=== PATIENT | female | born 1975 | race Caucasian/White ===

== ENCOUNTER 2017-12-03 16:13 | Emergency (ER) | payer MEDICAID, SELFPAY ==
[2017-12-03 16:17] VITALS: BP 94/72; PULSE 80; RESP 14; TEMP 36.2; O2SAT 97
[2017-12-03] MEDS: Ketorolac 30 MG/ML VIAL IM (16:30)
[2017-12-03] MEDS: Diazepam 5 MG TAB PO (16:30)
--- NOTE | 2017-12-03 16:37 | ED.GENADUL_ITS ---
Discharge Plan Discharge Details Chief Complaint: Nk/Back Pain Clinical Impression: Low back pain radiating to left leg Primary Care Provider: Sarah Beltrán ED Provider: Chadwick Wan Disposition Patient Disposition: HOME Condition: Improving Home Meds and New Rx's Prescriptions: New cyclobenzaprine 10 mg tablet 10 mg PO TID Qty: 14 RF: 0 prednisone 20 mg tablet 60 mg PO DAILY 4 Days Qty: 12 RF: 0 No Action meclizine 25 MG tablet 25 mg PO TID PRNQty: 30 RF: 2 cetirizine 10 MG tablet 10 mg PO DAILY Qty: 90 RF: 3 lansoprazole 30 MG capsule,delayed release(DR/EC) 30 mg PO DAILY Qty: 90 RF: 3 fluoxetine [Prozac] 20 MG capsule 20 mg PO DAILY Qty: 90 RF: 3 sumatriptan succinate [Imitrex] 50 MG tablet 50 mg PO prn migraine Qty: 9 RF: 2 epinephrine [EpiPen 2-Darci] 0.3 MG/0.3 ML auto-injector 0.3 mg IM PRN Qty: 1 RF: 2 albuterol sulfate [ProAir HFA] 200 PUFF/INH HFA aerosol inhaler 2 puff Inhalation Q6H PRN PRNRF: 0 Discharge Instructions Instructions: Cyclobenzaprine (By mouth), Acute Low Back Pain (ED) Additional Instructions: follow up with your primary care provider this week if you have fevers, abdominal pain or difficulty urinating return to the emergency department Discharge Data Discharge Physician: Chadwick Wan Medical Decision Making MDM Narrative Medical decision making narrative: 42 yo female with hx of asthma and depression and chronic lower back pain who has had prior back surgeries in the past for disc herniations per the pt years ago, comes in with back pain since Sunday. She localizes the pain tot he left lower lumbar region and denies midline pain. She denies fevers, abd pain, n/v, ivdu, or recent trauma. She has no saddle anesthesia and denies difficulties with urinating. See exam for further details. I suspect the patient is suffering from either muscle spasm, back strain or possible disc herniation or sciatica. There are no historical or PE findings at this time to suggest cauda equina, sea, dissection, or intrabdominal pathology or osteomyelitis at this time so do not feel labs or imaging indicated. Will treat her pain and reassess. Patient's pain has improved, still no neuro deficits, abd pain or saddle anesthesia. Will send home with steroid burst and also muscle relaxer and have her f/u with pcp's office this week and return precautions given Differential Diagnosis strain, sciatica, disc herniation, muscle spasm HPI - General Adult General Mode of arrival: ambulatory . Date/Time Provider Initiated Documentation: 12/03/17 16:16 . Limitations to Documentation: no limitations . Information obtained by: patient . History of Present Illness 42 year old F presents to the emergency department with the chief complaint of left sided lower back pain, described as severe, with intensity rated at 7. Quality is described as stabbing, and is localized to the back. Patient extremity (posterior left leg). Patient started experiencing this day(s) (3) and it has been constant. No relieving factors improve symptom(s), No exacerbating factors reported . Patient notes no other symptoms.. Related Data Home Medications Medication Instructions Recorded Confirmed albuterol sulfate [ProAir HFA] 2 puff INHALATION Q6H PRN PRN 08/03/17 12/03/17 Previous Rx's Medication Instructions Recorded cyclobenzaprine 10 mg PO TID #14 tab 12/03/17 prednisone 60 mg PO DAILY 4 Days #12 tab 12/03/17 Allergies Allergy/AdvReac Type Severity Reaction Status Date / Time venom-honey bee Allergy Severe Unverified 12/03/17 16:24 Sulfa (Sulfonamide Allergy HIVES Unverified 12/03/17 16:24 Antibiotics) General Stated Complaint: Nk/Back Pain MIKE: 3 Review of Systems Review of Systems All systems reviewed & are unremarkable except as noted in HPI and below Constitutional Denies chills, Denies fever(s) and Denies weakness Eyes Patient Denies loss of vision ENT Denies change in voice Cardiovascular Denies chest pain and Denies dyspnea Respiratory Denies dyspnea Gastrointestinal Denies abdominal pain, Denies nausea and Denies vomiting Genitourinary Denies dysuria Musculoskeletal Denies joint swelling Integumentary/Breasts Denies rash Neurologic Denies loss of vision and Denies weakness Psychiatric Denies depression Endocrine Denies cold intolerance and Denies heat intolerance Allergic/Immunologic Reports urticaria PFSH Family History Mother Hyperlipidemia Thyroid disorder Father Essential hypertension Diabetes Personal history of malignant neoplasm Heart disease Hyperlipidemia Sister No problems noted. Brother No problems noted. Grandfather No problems noted. Grandfather No problems noted. Grandmother No problems noted. Grandmother No problems noted. Social History Smoking/Tobacco Use Status: Current every day Surgical History ANAL SURGERY Dilation and curettage Endometrial Ablation (~2009) Ligation of fallopian tube discectomy (~2003) Exam Const General: no acute distress Orientation: alert HENMT Head: normal to inspection Ears: external ears normal General nose exam: external nose normal Mouth: moist mucous membranes Eyes General: appearance normal, both eyes and all related structures Neck Neck: normal visual inspection Resp Effort & Inspection: normal respiratory effort and able to speak in complete sentences Cardio Rate: regular rate Back/Spine/Pelvis Back: no CVA tenderness, No erythema, No warmth, No sacral edema, No ecchymosis and No Webb-Bryan sign present Thoracic/Lumbar Spine: other (patient with pain over left lower lumbar region, no midline pain or stepoffs, no saddle anesthesia, 5/5 strength in lower extremities and intact distal sensation and 2+ dp/pt pulses) Skin General skin exam: no rashes or lesions noted Neuro General: alert, oriented x3 and deep tendon reflexes 2+ bilaterally Speech: speech normal Sensory Exam: no sensory deficits noted Extrem General: normal to inspection Psych Mental Status: mental status grossly normal Course Vital Signs Temperature 36.2 C L 12/03/17 16:17 Pulse 80 12/03/17 16:17 Respiratory Rate 14 12/03/17 16:17 Blood Pressure 94/72 L 12/03/17 16:17 Pulse Oximetry 97 12/03/17 16:17 Temperature 36.2 C L 12/03/17 16:17 Pulse 80 12/03/17 16:17 Respiratory Rate 14 12/03/17 16:17 Blood Pressure 94/72 L 12/03/17 16:17 Pulse Oximetry 97 12/03/17 16:17
[2017-12-03] MEDS: predniSONE 20 MG TAB 60 MG PO (16:41)
[2017-12-03] MEDS: Cyclobenzaprine 10 MG TAB (18:00)
--- NOTE | 2017-12-04 09:10 | PDOC.ERCMPRO ---
Care Management Progress Note 12/04-Dr. Wan requested assistance with a PCP (Leigh Ann) f/u in one week for back pain. Referral faxed to [facility] this .
== END 2017-12-03 18:09 | disposition home or self-care (01) ==
PROVIDERS: Emergency Provider Emergency Medicine; PCP Family Medicine
DX: M54.42 Lumbago with sciatica, left side (principal); G89.29 Other chronic pain; M54.5 Low back pain
CPT/HCPCS: 96372; 99284; J1885; J7512

== ENCOUNTER 2018-01-22 21:22 | Emergency (ER) | payer MEDICAID, SELFPAY ==
[2018-01-22 21:36] VITALS: BP 118/80; PULSE 100; RESP 18; TEMP 36.1; O2SAT 96
--- NOTE | 2018-01-22 22:21 | DI.CT_ITS ---
SYMPTOMS/DIAGNOSIS: ABDOMINAL PAIN, RIGHT LOWER QUADRANT CT OF THE ABDOMEN AND PELVIS: Comparison is made with April,. There is patent motion on the upper portion of the scan. The lung bases are clear. The liver, spleen, pancreas, adrenals and left kidney are unremarkable. There is a cyst at the lower pole of the right kidney. No stones or hydronephrosis are seen. There is motion at the level of the gallbladder. There is no evidence of biliary dilatation. The appendix appears normal. There is a moderate quantity of stool. There is no abnormal bowel distention or inflammatory change. The patient is status post hysterectomy. The bladder is unremarkable. The ovaries are also grossly normal. Degenerative changes are seen at L5-S1. A laminectomy defect is also seen. IMPRESSION: No acute abnormality. Incidental findings as mentioned above.
[2018-01-22] MEDS: MORPHine 10 MG/ML VIAL 4 MG IVP (22:37)
[2018-01-22] MEDS: Ondansetron 4 MG/2 ML VIAL IVP (22:37)
[2018-01-22] MEDS: Normal Saline 1,000 ML 1000 ML IV (22:37)
[2018-01-22 22:43] LABS: Abs Immature Grans 0.02 k/cumm (0.0-0.09); Absolute Basophil Count 0.02 k/cumm (0.0-0.2); Absolute Eosinophil Count 0.18 k/cumm (0.0-0.7); Absolute Lymphocyte Count 1.89 k/cumm (1.2-3.4); Absolute Monocyte Count 0.65 k/cumm (0.11-0.7); Absolute Neutrophil Count 5.75 k/cumm (1.2-6.7); Basophils % 0.2; Eosinophils % 2.1; HCT 43.3 % (36.0-46.0); HGB 14.6 g/dL (12.0-15.5); Immature Grans % 0.2; Lymphocytes % 22.2; Mean Corp. HGB Concentration 33.7 g/dL (32.0-36.0); Mean Corpuscular Hemoglobin 29.7 pg (27.0-33.0); Mean Platelet Volume 12.1 fL (8.0-11.0); Monocytes % 7.6; Neutrophils % 67.7; Platelet Count 239 x1000/uL (130-400); RBC 4.92 m/cumm (4.00-5.20); RBC Distribution Width 13.8 % (11.7-14.6); White Blood Cell Count 8.51 k/cumm (4.4-10.8)
[2018-01-22 22:50] LABS: ALT 20 U/L (12-78); AST 16 U/L (15-37); Albumin 3.5 g/dL (3.4-5.0); Alkaline Phosphatase 106 U/L (46-116); Anion Gap 9.7 mmol/L (3-11); BUN 11 mg/dL (7-18); Bilirubin, Total 0.4 mg/dL (0.2-1.0); CO2 26.3 mmol/L (21.0-32.0); CREATININE 0.92 mg/dL (0.55-1.02); Calcium 8.7 mg/dL (8.5-10.1); Chloride 104 mmol/L (98-107); Glucose 110 mg/dL (70-100); Lipase 318 U/L (73-393); Potassium 3.2 mmol/L (3.5-5.1); Sodium 140 mmol/L (136-145); Total Protein 7.4 g/dL (6.4-8.2)
[2018-01-22 23:43] LABS: Bilirubin Negative (Negative); Blood Negative (Negative); Clarity Clear; Glucose Negative (Negative); Ketones Negative (Negative); Leukocyte Esterase Negative (Negative); Nitrite Negative (Negative); Specific Gravity <= 1.005 (1.005-1.025); Urobilinogen 0.2 EU/dL (Up TO 0.2)
[2018-01-22] MEDS: Omnipaque 350 MG/ML 100 ML BTL IJ (23:43)
[2018-01-22] MEDS: Omnipaque 350 MG/ML 50 ML BTL IJ (23:45)
--- NOTE | 2018-01-22 23:53 | DI.VRAD_ITS ---
EXAM: CT Abdomen and Pelvis With Intravenous Contrast CLINICAL HISTORY: 42 years old, female; Signs and symptoms; Other: Abd pain, rlq pain; Prior surgery; Surgery date: 6+ months; Surgery type: Ovarian ca 2015, back 2003 TECHNIQUE: Axial computed tomography images of the abdomen and pelvis with intravenous contrast. All CT scans at this facility use at least one of these dose optimization techniques: automated exposure control; mA and/or kV adjustment per patient size (includes targeted exams where dose is matched to clinical indication); or iterative reconstruction. Coronal and sagittal reformatted images were created and reviewed. CONTRAST: 125 mL of omnipaque 350 administered intravenously. COMPARISON: CT ABD PELVIS WITH CONTRAST 04/03/2013 7:19 PM FINDINGS: Lung bases: Unremarkable. No mass. No consolidation. ABDOMEN: Liver: Unremarkable. No mass. Gallbladder and bile ducts: Unremarkable. No calcified stones. No ductal dilation. Pancreas: Unremarkable. No mass. No ductal dilation. Spleen: Unremarkable. No splenomegaly. Adrenals: Unremarkable. No mass. Kidneys and ureters: 3 cm right renal cyst. No hydronephrosis. Stomach and bowel: Unremarkable. No obstruction. No mucosal thickening. PELVIS: Appendix: No findings to suggest acute appendicitis. Bladder: Unremarkable. No mass. Reproductive: Status post hysterectomy. ABDOMEN and PELVIS: Intraperitoneal space: Unremarkable. No free air. No significant fluid collection. Bones/joints: Degenerative change of the spine. No acute fracture. No dislocation. Soft tissues: Unremarkable. Vasculature: Unremarkable. No abdominal aortic aneurysm. Lymph nodes: Unremarkable. No enlarged lymph nodes. IMPRESSION: No acute findings. Dictated and Authenticated by: Chadwick Payne MD. Ordering:MARCIA EDWARDS MD
--- NOTE | 2018-01-23 01:12 | W.ED.GENAD ---
Discharge Plan Disposition Patient Disposition: HOME Condition: Stable Discharge Details Chief Complaint: Fever Clinical Impression: Acute streptococcal pharyngitis, Acute viral syndrome Primary Care Provider: Sarah Beltrán ED Provider: James Sanchez Home Meds and New Rx's Prescriptions: New amoxicillin 875 mg tablet 875 mg PO BID Qty: 20 RF: 0 No Action clotrimazole 10 mg gray 10 mg MM 5X/DAY Qty: 70 RF: 0 albuterol sulfate 90 mcg/actuation HFA aerosol inhaler 2 puff IH Q6H PRNRF: 0 sumatriptan succinate 50 mg tablet 50 mg PO PRN RF: 0 meclizine 25 mg tablet 25 mg PO DAILY PRNRF: 0 epinephrine 0.3 mg/0.3 mL auto-injector 0.3 mg IM ONCE Qty: 1 RF: 0 fluoxetine 20 mg capsule 20 mg PO DAILY Qty: 90 RF: 0 lansoprazole 30 mg capsule,delayed release(DR/EC) 30 mg PO DAILY Qty: 90 RF: 0 cetirizine [All Day Allergy (cetirizine)] 10 mg tablet 10 mg PO DAILY Qty: 90 RF: 0 Discharge Instructions Instructions: Strep Throat (ED), Viral Syndrome (ED) Additional Instructions: Feel free to return the emergency department for any new or worsening symptoms otherwise follow-up with your primary care provider as needed. Please take antibiotics and medications as prescribed. Stand Alone Forms: Work Release Referrals: Sarah Beltrán MD [Primary Care Provider] - (As needed for reassessment) Discharge Data Discharge Date/Time-TO BE ENTERED AT DEPARTURE: 01/23/18 01:50 Medical Decision Making Patient presenting the emergency department chief complaint of cold symptoms. Patient states fever and chills, nausea vomiting abdominal pain, sore throat, cough, nasal congestion. Patient states that the pain and discomfort started 2 days ago. Patient has not taken any medication for symptoms. Physical exam reveals a viral type symptoms with clear lung velez, no meningeal signs, subjective nasal congestion during examination is heard. Abdominal exam though does reveal a significantly tender right lower quadrant and some epigastric tenderness. Plan to check labs and CT image abdomen for possible appendicitis given nausea vomiting and abdominal pain with fever. Otherwise I feel patient's symptoms are viral in etiology but will plan on checking influenza. Pending results patient given IV fluids After review of results which are unremarkable and CT imaging which is negative along with negative influenza patient reassessed. Patient states more of a sore throat so plan on checking rapid strep throat. Rapid strep is faintly positive which could explain sore throat nausea vomiting and GI upset but I feel patient's cough nasal congestion and body aches also could be viral in nature. Plan to start patient on amoxicillin twice daily days and have patient follow-up with primary care provider for reassessment as needed. After discussion of diagnosis and plan of care patient has no further needs, questions, or concerns and states clear understanding to return to the emergency department for any worsening symptoms. Lab Data Lab results reviewed: Yes I reviewed the patient's lab results. HPI General Mode of arrival: ambulatory. Date/Time Provider Initiated Documentation: 01/22/18 21:44. Limitations to Documentation: no limitations. Information obtained by: patient. History of Present Illness 42 year old F presents to the emergency department with the chief complaint of cold symptoms, described as severe, Quality is described as aching, Patient started experiencing this day(s) (2) and it has been constant. No relieving factors improve symptom(s), No exacerbating factors reported . Patient did receive the following treatments prior to arrival, none Related Data Home Medications Medication Instructions Recorded Confirmed albuterol sulfate HFA 90 2 puff IH Q6H PRN 12/05/17 01/22/18 mcg/actuation aerosol inhaler cetirizine 10 mg tablet 10 mg PO DAILY #90 tab 12/05/17 01/22/18 epinephrine 0.3 mg/0.3 mL 0.3 mg IM ONCE #1 each 12/05/17 01/22/18 injection, auto-injector fluoxetine 20 mg capsule 20 mg PO DAILY #90 cap 12/05/17 01/22/18 lansoprazole 30 mg capsule,delayed 30 mg PO DAILY #90 cap 12/05/17 01/22/18 release meclizine 25 mg tablet 25 mg PO DAILY PRN 12/05/17 01/22/18 sumatriptan 50 mg tablet 50 mg PO PRN tab 12/05/17 01/22/18 clotrimazole 10 mg gray 10 mg MM 5X/DAY #70 tab 12/17/17 01/22/18 amoxicillin 875 mg PO BID #20 tab 01/23/18 Previous Rx's Medication Instructions Recorded cetirizine 10 mg tablet 10 mg PO DAILY #90 tab 12/05/17 epinephrine 0.3 mg/0.3 mL 0.3 mg IM ONCE #1 each 12/05/17 injection, auto-injector fluoxetine 20 mg capsule 20 mg PO DAILY #90 cap 12/05/17 lansoprazole 30 mg capsule,delayed 30 mg PO DAILY #90 cap 12/05/17 release clotrimazole 10 mg gray 10 mg MM 5X/DAY #70 tab 12/17/17 amoxicillin 875 mg PO BID #20 tab 01/23/18 Allergies Allergy/AdvReac Type Severity Reaction Status Date / Time venom-honey bee Allergy Severe Unverified 01/22/18 21:36 Sulfa (Sulfonamide Allergy HIVES Unverified 01/22/18 21:36 Antibiotics) General Stated Complaint: Fever MIKE: 3 Review of Systems Constitutional Reports body ache(s), Reports chills, Reports fatigue, Reports fever(s), Reports headache(s) and Reports malaise ENT Denies otalgia, Reports headache(s), Reports sinus pain, Reports sinus pressure and Reports sore throat Cardiovascular Denies chest pain Respiratory Reports cough and Reports pain with cough Gastrointestinal Reports abdominal pain, Denies constipation, Reports diarrhea and Reports vomiting Genitourinary Denies dysuria Neurologic Reports headache(s) Endocrine Reports fatigue [facility] Family History Mother Hyperlipidemia Thyroid disorder Father Essential hypertension Diabetes Personal history of malignant neoplasm Heart disease Hyperlipidemia Sister No problems noted. Brother No problems noted. Grandfather No problems noted. Grandfather No problems noted. Grandmother No problems noted. Grandmother No problems noted. Social History Smoking/Tobacco Use Status: Current every day Surgical History ANAL SURGERY Dilation and curettage Endometrial Ablation (~2009) Ligation of fallopian tube discectomy (~2003) Exam Const General: cooperative, comfortable, no acute distress and ill appearing acutely (mild) Nutritional Appearance: average body habitus Orientation: alert and oriented x3 HENMT Head: normal to inspection, normocephalic and atraumatic Ears: hearing grossly normal bilaterally and TM's normal bilaterally General nose exam: external nose normal Face and sinus: normal facial exam and sinuses nontender Mouth: oral mucosae normal, lip normal and tongue normal Throat: uvula midline and abnormal tonsil bilaterally erythema Neck Neck: normal visual inspection, full ROM, no lymphadenopathy, no meningeal signs, trachea midline and supple Resp Effort & Inspection: normal respiratory effort and able to speak in complete sentences Auscultation: clear to auscultation bilaterally Cardio Rate: regular rate Rhythm: regular rhythm Heart Sounds: S1 normal and S2 normal GI Palpation: no hepatosplenomegaly and tender in the epigastrum and in the RUQ Auscultation: normal bowel sounds Back/Spine/Pelvis Back: no CVA tenderness Course Vital Signs Temperature 36.1 C L 01/22/18 21:36 Pulse 100 H 01/22/18 21:36 Respiratory Rate 18 01/22/18 21:36 Blood Pressure 118/80 01/22/18 21:36 Pulse Oximetry 96 01/22/18 21:36 Temperature 36.1 C L 01/22/18 21:36 Temperature Source Temporal Artery Scan 01/22/18 21:36 Pulse 100 H 01/22/18 21:36 Respiratory Rate 18 01/22/18 21:36 Respiratory Effort 01/22/18 21:36 Blood Pressure 118/80 01/22/18 21:36 Blood Pressure Position Sitting 01/22/18 21:36 Pulse Oximetry 96 01/22/18 21:36 Oxygen Delivery Method Room Air 01/22/18 21:36 Oxygen Flow Rate 0 01/22/18 21:36 Lab/Test Results Lab/Test Results: 01/22/18 22:48 Nasopharynx Influenza Types A,B Antigen - Final Laboratory Tests Range/Units 01/22/18 01/22/18 01/22/18 22:00 22:00 23:25 WBC (4.4-10.8) k/cumm 8.51 RBC (4.00-5.20) m/cumm 4.92 Hgb (12.0-15.5) g/dL 14.6 Hct (36.0-46.0) % 43.3 MCV (80-95) fL 88.0 MCH (27.0-33.0) pg 29.7 MCHC (32.0-36.0) g/dL 33.7 RDW (11.7-14.6) % 13.8 Plt Count (130-400) x1000/uL 239 MPV (8.0-11.0) fL 12.1 H Immature Gran % 0.2 Neutrophils % 67.7 Lymphocytes % 22.2 Monocytes % 7.6 Eosinophils % 2.1 Basophils % 0.2 Absolute Neutrophils (1.2-6.7) k/cumm 5.75 Absolute Lymphocytes (1.2-3.4) k/cumm 1.89 Absolute Monocytes (0.11-0.7) k/cumm 0.65 Absolute Eosinophils (0.0-0.7) k/cumm 0.18 Absolute Basophils (0.0-0.2) k/cumm 0.02 Sodium (136-145) mmol/L 140 Potassium (3.5-5.1) mmol/L 3.2 L Chloride (98-107) mmol/L 104 Carbon Dioxide (21.0-32.0) mmol/L 26.3 Anion Gap (3-11) mmol/L 9.7 BUN (7-18) mg/dL 11 Creatinine (0.55-1.02) mg/dL 0.92 Estimated GFR/1.73 m2 (mL/min/1.73m2) >= 60.00 Glucose (70-100) mg/dL 110 H Calcium (8.5-10.1) mg/dL 8.7 Total Bilirubin (0.2-1.0) mg/dL 0.4 AST (15-37) U/L 16 ALT (12-78) U/L 20 Alkaline Phosphatase (46-116) U/L 106 Total Protein (6.4-8.2) g/dL 7.4 Albumin (3.4-5.0) g/dL 3.5 Lipase (73-393) U/L 318 Urine Color (Yellow) Yellow Urine Clarity Clear Urine pH (5-8) 7.0 Ur Specific [place] (1.005-1.025) <= 1.005 Urine Protein (Negative) mg/dL Negative Urine Ketones (Negative) mg/dL Negative Urine Blood (Negative) Negative Urine Nitrite (Negative) Negative Urine Bilirubin (Negative) Negative Urine Urobilinogen (Up TO 0.2) EU/dL 0.2 Ur Leukocyte Esterase (Negative) Negative Urine Glucose (Negative) mg/dL Negative POC Strep Test-CLEO(Rapid) Start: 01/23/18 00:46 Freq: Status: Active Protocol: Document 01/23/18 00:46 (Rec: 01/23/18 00:46 [id number]) Strep test-CLEO(Rapid)-POC POC-Strep test-CLEO (Rapid) Positive POC-Strep test-CLEO (Rapid) Positive
--- NOTE | 2018-01-23 01:19 | ED.GENADUL_ITS ---
Discharge Plan Disposition Patient Disposition: HOME Condition: Stable Discharge Details Chief Complaint: Fever Clinical Impression: Acute streptococcal pharyngitis, Acute viral syndrome Primary Care Provider: Sarah Beltrán ED Provider: James Sanchez Home Meds and New Rx's Prescriptions: New amoxicillin 875 mg tablet 875 mg PO BID Qty: 20 RF: 0 No Action clotrimazole 10 mg gray 10 mg MM 5X/DAY Qty: 70 RF: 0 albuterol sulfate 90 mcg/actuation HFA aerosol inhaler 2 puff IH Q6H PRNRF: 0 sumatriptan succinate 50 mg tablet 50 mg PO PRN RF: 0 meclizine 25 mg tablet 25 mg PO DAILY PRNRF: 0 epinephrine 0.3 mg/0.3 mL auto-injector 0.3 mg IM ONCE Qty: 1 RF: 0 fluoxetine 20 mg capsule 20 mg PO DAILY Qty: 90 RF: 0 lansoprazole 30 mg capsule,delayed release(DR/EC) 30 mg PO DAILY Qty: 90 RF: 0 cetirizine [All Day Allergy (cetirizine)] 10 mg tablet 10 mg PO DAILY Qty: 90 RF: 0 Discharge Instructions Instructions: Strep Throat (ED), Viral Syndrome (ED) Additional Instructions: Feel free to return the emergency department for any new or worsening symptoms otherwise follow-up with your primary care provider as needed. Please take antibiotics and medications as prescribed. Stand Alone Forms: Work Release Referrals: Sarah Beltrán MD [Primary Care Provider] - (As needed for reassessment) Discharge Data Discharge Date/Time-TO BE ENTERED AT DEPARTURE: 01/23/18 01:50 Medical Decision Making Patient presenting the emergency department chief complaint of cold symptoms. Patient states fever and chills, nausea vomiting abdominal pain, sore throat, cough, nasal congestion. Patient states that the pain and discomfort started 2 days ago. Patient has not taken any medication for symptoms. Physical exam reveals a viral type symptoms with clear lung velez, no meningeal signs, subjective nasal congestion during examination is heard. Abdominal exam though does reveal a significantly tender right lower quadrant and some epigastric tenderness. Plan to check labs and CT image abdomen for possible appendicitis given nausea vomiting and abdominal pain with fever. Otherwise I feel patient' s symptoms are viral in etiology but will plan on checking influenza. Pending results patient given IV fluids After review of results which are unremarkable and CT imaging which is negative along with negative influenza patient reassessed. Patient states more of a sore throat so plan on checking rapid strep throat. Rapid strep is faintly positive which could explain sore throat nausea vomiting and GI upset but I feel patient's cough nasal congestion and body aches also could be viral in nature. Plan to start patient on amoxicillin twice daily days and have patient follow-up with primary care provider for reassessment as needed. After discussion of diagnosis and plan of care patient has no further needs, questions , or concerns and states clear understanding to return to the emergency department for any worsening symptoms. Lab Data Lab results reviewed: Yes I reviewed the patient's lab results. HPI General Mode of arrival: ambulatory . Date/Time Provider Initiated Documentation: 01/22/18 21:44 . Limitations to Documentation: no limitations . Information obtained by: patient . History of Present Illness 42 year old F presents to the emergency department with the chief complaint of cold symptoms, described as severe, Quality is described as aching, Patient started experiencing this day(s) (2) and it has been constant. No relieving factors improve symptom(s), No exacerbating factors reported . Patient did receive the following treatments prior to arrival, none Related Data Home Medications Medication Instructions Recorded Confirmed albuterol sulfate HFA 90 2 puff IH Q6H PRN 12/05/17 01/22/18 mcg/actuation aerosol inhaler cetirizine 10 mg tablet 10 mg PO DAILY #90 tab 12/05/17 01/22/18 epinephrine 0.3 mg/0.3 mL 0.3 mg IM ONCE #1 each 12/05/17 01/22/18 injection, auto-injector fluoxetine 20 mg capsule 20 mg PO DAILY #90 cap 12/05/17 01/22/18 lansoprazole 30 mg capsule,delayed 30 mg PO DAILY #90 cap 12/05/17 01/22/18 release meclizine 25 mg tablet 25 mg PO DAILY PRN 12/05/17 01/22/18 sumatriptan 50 mg tablet 50 mg PO PRN tab 12/05/17 01/22/18 clotrimazole 10 mg gray 10 mg MM 5X/DAY #70 tab 12/17/17 01/22/18 amoxicillin 875 mg PO BID #20 tab 01/23/18 Previous Rx's Medication Instructions Recorded cetirizine 10 mg tablet 10 mg PO DAILY #90 tab 12/05/17 epinephrine 0.3 mg/0.3 mL 0.3 mg IM ONCE #1 each 12/05/17 injection, auto-injector fluoxetine 20 mg capsule 20 mg PO DAILY #90 cap 12/05/17 lansoprazole 30 mg capsule,delayed 30 mg PO DAILY #90 cap 12/05/17 release clotrimazole 10 mg gray 10 mg MM 5X/DAY #70 tab 12/17/17 amoxicillin 875 mg PO BID #20 tab 01/23/18 Allergies Allergy/AdvReac Type Severity Reaction Status Date / Time venom-honey bee Allergy Severe Unverified 01/22/18 21:36 Sulfa (Sulfonamide Allergy HIVES Unverified 01/22/18 21:36 Antibiotics) General Stated Complaint: Fever MIKE: 3 Review of Systems Constitutional Reports body ache(s), Reports chills, Reports fatigue, Reports fever(s), Reports headache(s) and Reports malaise ENT Denies otalgia, Reports headache(s), Reports sinus pain, Reports sinus pressure and Reports sore throat Cardiovascular Denies chest pain Respiratory Reports cough and Reports pain with cough Gastrointestinal Reports abdominal pain, Denies constipation, Reports diarrhea and Reports vomiting Genitourinary Denies dysuria Neurologic Reports headache(s) Endocrine Reports fatigue [facility] Family History Mother Hyperlipidemia Thyroid disorder Father Essential hypertension Diabetes Personal history of malignant neoplasm Heart disease Hyperlipidemia Sister No problems noted. Brother No problems noted. Grandfather No problems noted. Grandfather No problems noted. Grandmother No problems noted. Grandmother No problems noted. Social History Smoking/Tobacco Use Status: Current every day Surgical History ANAL SURGERY Dilation and curettage Endometrial Ablation (~2009) Ligation of fallopian tube discectomy (~2003) Exam Const General: cooperative, comfortable, no acute distress and ill appearing acutely ( mild) Nutritional Appearance: average body habitus Orientation: alert and oriented x3 HENMT Head: normal to inspection, normocephalic and atraumatic Ears: hearing grossly normal bilaterally and TM's normal bilaterally General nose exam: external nose normal Face and sinus: normal facial exam and sinuses nontender Mouth: oral mucosae normal, lip normal and tongue normal Throat: uvula midline and abnormal tonsil bilaterally erythema Neck Neck: normal visual inspection, full ROM, no lymphadenopathy, no meningeal signs , trachea midline and supple Resp Effort & Inspection: normal respiratory effort and able to speak in complete sentences Auscultation: clear to auscultation bilaterally Cardio Rate: regular rate Rhythm: regular rhythm Heart Sounds: S1 normal and S2 normal GI Palpation: no hepatosplenomegaly and tender in the epigastrum and in the RUQ Auscultation: normal bowel sounds Back/Spine/Pelvis Back: no CVA tenderness Course Vital Signs Temperature 36.1 C L 01/22/18 21:36 Pulse 100 H 01/22/18 21:36 Respiratory Rate 18 01/22/18 21:36 Blood Pressure 118/80 01/22/18 21:36 Pulse Oximetry 96 01/22/18 21:36 Temperature 36.1 C L 01/22/18 21:36 Temperature Source Temporal Artery Scan 01/22/18 21:36 Pulse 100 H 01/22/18 21:36 Respiratory Rate 18 01/22/18 21:36 Respiratory Effort 01/22/18 21:36 Blood Pressure 118/80 01/22/18 21:36 Blood Pressure Position Sitting 01/22/18 21:36 Pulse Oximetry 96 01/22/18 21:36 Oxygen Delivery Method Room Air 01/22/18 21:36 Oxygen Flow Rate 0 01/22/18 21:36 Lab/Test Results Lab/Test Results: 01/22/18 22:48 Nasopharynx Influenza Types A,B Antigen - Final Laboratory Tests Range/Units 01/22/18 01/22/18 01/22/18 22:00 22:00 23:25 WBC (4.4-10.8) k/cumm 8.51 RBC (4.00-5.20) m/cumm 4.92 Hgb (12.0-15.5) g/dL 14.6 Hct (36.0-46.0) % 43.3 MCV (80-95) fL 88.0 MCH (27.0-33.0) pg 29.7 MCHC (32.0-36.0) g/dL 33.7 RDW (11.7-14.6) % 13.8 Plt Count (130-400) x1000/uL 239 MPV (8.0-11.0) fL 12.1 H Immature Gran % 0.2 Neutrophils % 67.7 Lymphocytes % 22.2 Monocytes % 7.6 Eosinophils % 2.1 Basophils % 0.2 Absolute Neutrophils (1.2-6.7) k/cumm 5.75 Absolute Lymphocytes (1.2-3.4) k/cumm 1.89 Absolute Monocytes (0.11-0.7) k/cumm 0.65 Absolute Eosinophils (0.0-0.7) k/cumm 0.18 Absolute Basophils (0.0-0.2) k/cumm 0.02 Sodium (136-145) mmol/L 140 Potassium (3.5-5.1) mmol/L 3.2 L Chloride (98-107) mmol/L 104 Carbon Dioxide (21.0-32.0) mmol/L 26.3 Anion Gap (3-11) mmol/L 9.7 BUN (7-18) mg/dL 11 Creatinine (0.55-1.02) mg/dL 0.92 Estimated GFR/1.73 m2 (mL/min/1.73m2) >= 60.00 Glucose (70-100) mg/dL 110 H Calcium (8.5-10.1) mg/dL 8.7 Total Bilirubin (0.2-1.0) mg/dL 0.4 AST (15-37) U/L 16 ALT (12-78) U/L 20 Alkaline Phosphatase (46-116) U/L 106 Total Protein (6.4-8.2) g/dL 7.4 Albumin (3.4-5.0) g/dL 3.5 Lipase (73-393) U/L 318 Urine Color (Yellow) Yellow Urine Clarity Clear Urine pH (5-8) 7.0 Ur Specific [place] (1.005-1.025) <= 1.005 Urine Protein (Negative) mg/dL Negative Urine Ketones (Negative) mg/dL Negative Urine Blood (Negative) Negative Urine Nitrite (Negative) Negative Urine Bilirubin (Negative) Negative Urine Urobilinogen (Up TO 0.2) EU/dL 0.2 Ur Leukocyte Esterase (Negative) Negative Urine Glucose (Negative) mg/dL Negative POC Strep Test-CLEO(Rapid) Start: 01/23/18 00: 46 Freq: Status: Active Protocol: Document 01/23/18 00:46 (Rec: 01/23/18 00:46 [id number]) Strep test-CLEO(Rapid)-POC POC-Strep test-CLEO (Rapid) Positive POC-Strep test-CLEO (Rapid) Positive
== END 2018-01-23 01:50 | disposition home or self-care (01) ==
PROVIDERS: Emergency Provider Nurse Practitioner Family; PCP Family Medicine
DX: J02.0 Streptococcal pharyngitis (principal); B34.9 Viral infection, unspecified; F17.210 Nicotine dependence, cigarettes, uncomplicated
CPT/HCPCS: 36415; 80053; 83690; 87449; 87880; 96361; 96374; 96375; 99285; 74177; 81003; 85025; 99284; J2270; J2405; J3490; Q9967

== ENCOUNTER 2018-04-12 00:55 | Emergency (ER) | payer MEDICAID, SELFPAY ==
[2018-04-12 00:59] VITALS: BP 130/98; PULSE 61; RESP 16; TEMP 37; O2SAT 94
--- NOTE | 2018-04-12 01:08 | DI.RAD_ITS ---
SYMPTOM/DIAGNOSIS: PAIN, S/P FALL RIGHT ANKLE: No fracture or ankle mortise widening is seen. The talar dome appears intact. An ossicle is seen adjacent to the cuboid. IMPRESSION: Negative right ankle.
--- NOTE | 2018-04-12 01:15 | ED.GENADUL_ITS ---
Discharge Plan Disposition Patient Disposition: HOME Condition: Stable Discharge Details Chief Complaint: Orthopedic Clinical Impression: Sprain of ankle, right Reason For Visit: ÁLVARO Primary Care Provider: Sarah Beltrán ED Provider: Chadwick Wan Home Meds and New Rx's Prescriptions: Continued albuterol sulfate 90 mcg/actuation HFA aerosol inhaler 2 puff IH Q6H PRNRF: 0 sumatriptan succinate 50 mg tablet 50 mg PO PRN RF: 0 meclizine 25 mg tablet 25 mg PO DAILY PRNRF: 0 epinephrine 0.3 mg/0.3 mL auto-injector 0.3 mg IM ONCE Qty: 1 RF: 0 fluoxetine 20 mg capsule 20 mg PO DAILY Qty: 90 RF: 0 lansoprazole 30 mg capsule,delayed release(DR/EC) 30 mg PO DAILY Qty: 90 RF: 3 cetirizine [All Day Allergy (cetirizine)] 10 mg tablet 10 mg PO DAILY Qty: 90 RF: 3 Discharge Instructions Instructions: Ankle Sprain (ED) Additional Instructions: if still in pain in a week see your primary care provider you can take 1000mg tylenol and 600mg ibuprofen every 6 hours for pain as needed use the crutches and brace as needed Stand Alone Forms: Work Release Medical Decision Making 42 yo female comes in with right ankle pain. She states yesterday morning she tripped on a step and rolled the right ankle, no head trauma or loc. Was able to walk on it but is now more sore on lateral malleolus so came here. Has no significant swelling or deformity, intact sensation and 2+ dp/pt pulses with no pain in the knee or hip on rom and palpation. No pain over metatarsals. Suspect sprain but will xray to eval for fx Xray negative on my read, as long as vrad agrees no fx/dislocation or other pathology will d/c with crutches and ankle brace and advised f/u with pcp if still in pain in a week Differential Diagnosis sprain, strain, fx, dislocation Imaging Data Radiologic Study: Attestation: I personally reviewed and interpreted this imaging study as follows: Imaging: X-Ray My impression: no acute findings HPI General Mode of arrival: EMS . Date/Time Provider Initiated Documentation: 04/12/18 01:04 . Limitations to Documentation: no limitations . Information obtained by: patient . History of Present Illness 42 year old F presents to the emergency department with the chief complaint of right ankle pain, described as moderate, with intensity rated at 6. Quality is described as aching, and is localized to the right and lower extremity. Patient reports no radiation. Patient started experiencing this hour(s) (16) and it has been constant. No relieving factors improve symptom(s), No exacerbating factors reported . Patient notes no other symptoms.. Patient did receive the following treatments prior to arrival, none Related Data Home Medications Medication Instructions Recorded Confirmed albuterol sulfate HFA 90 2 puff IH Q6H PRN 12/05/17 04/12/18 mcg/actuation aerosol inhaler epinephrine 0.3 mg/0.3 mL 0.3 mg IM ONCE #1 each 12/05/17 04/12/18 injection, auto-injector fluoxetine 20 mg capsule 20 mg PO DAILY #90 cap 12/05/17 04/12/18 meclizine 25 mg tablet 25 mg PO DAILY PRN 12/05/17 04/12/18 sumatriptan 50 mg tablet 50 mg PO PRN tab 12/05/17 04/12/18 cetirizine 10 mg tablet 10 mg PO DAILY #90 tab 04/01/18 04/12/18 lansoprazole 30 mg capsule,delayed 30 mg PO DAILY #90 cap 04/01/18 04/12/18 release Previous Rx's Medication Instructions Recorded epinephrine 0.3 mg/0.3 mL 0.3 mg IM ONCE #1 each 12/05/17 injection, auto-injector fluoxetine 20 mg capsule 20 mg PO DAILY #90 cap 12/05/17 cetirizine 10 mg tablet 10 mg PO DAILY #90 tab 04/01/18 lansoprazole 30 mg capsule,delayed 30 mg PO DAILY #90 cap 04/01/18 release Allergies Allergy/AdvReac Type Severity Reaction Status Date / Time venom-honey bee Allergy Severe Unverified 04/12/18 00:59 Sulfa (Sulfonamide Allergy HIVES Unverified 04/12/18 00:59 Antibiotics) General MIKE: 3 Review of Systems Review of Systems All systems reviewed & are unremarkable except as noted in HPI and below Constitutional Denies chills, Denies fever(s) and Denies weakness Cardiovascular Denies chest pain Gastrointestinal Denies vomiting Musculoskeletal Denies joint swelling Integumentary/Breasts Denies rash Neurologic Denies weakness PFSH Family History Mother Hyperlipidemia Thyroid disorder Father Essential hypertension Diabetes Personal history of malignant neoplasm Heart disease Hyperlipidemia Sister No problems noted. Brother No problems noted. Grandfather No problems noted. Grandfather No problems noted. Grandmother No problems noted. Grandmother No problems noted. Social History Smoking/Tobacco Use Status: Current every day Exam Const General: no acute distress Orientation: alert HENMT Head: normal to inspection Ears: external ears normal General nose exam: external nose normal Mouth: moist mucous membranes Eyes General: appearance normal, both eyes and all related structures Neck Neck: normal visual inspection Resp Effort & Inspection: normal respiratory effort and able to speak in complete sentences Cardio Rate: regular rate Skin General skin exam: no rashes or lesions noted Neuro General: alert and oriented x3 Extrem General: normal to inspection Psych Mental Status: mental status grossly normal
[2018-04-12] MEDS: Acetaminophen 500 MG TAB 1000 MG PO (01:17)
[2018-04-12] MEDS: Ibuprofen 600 MG TAB PO (01:17)
--- NOTE | 2018-04-12 01:48 | DI.VRAD_ITS ---
EXAM: XR Right Ankle Complete, 3 or more Views EXAM DATE/TIME: 04/12/2018 1:34 AM CLINICAL HISTORY: 42 years old, female; Injury or trauma; Fall; Initial encounter; Sprain or strain; Ankle; Right; Injury date: 04/11/2018; Injury details: Slipped on icy steps. [place] and felt a pop in ankle. Burning sensation in ankle since TECHNIQUE: XR Right ankle 3 or more views. COMPARISON: No relevant prior studies available. FINDINGS: Bones/joints: Bone mineralization is age-appropriate. There is no evidence of fracture. No evidence of dislocation. The joint spaces are adequately preserved; no significant degenerative narrowing and no bony erosion seen. Soft tissues: No radiopaque foreign body present. There is mild soft tissue swelling present. IMPRESSION: 1. No acute osseous abnormality. 2. Soft tissue swelling only. Dictated and Authenticated by: Leif Baumann MD. Ordering:PEPE Genao MD
== END 2018-04-12 02:05 | disposition home or self-care (01) ==
PROVIDERS: Emergency Provider Emergency Medicine; PCP Family Medicine
DX: S93.401A Sprain of unspecified ligament of right ankle, initial encounter (principal); W00.1XXA Fall from stairs and steps due to ice and snow, initial encounter; X50.9XXA Other and unspecified overexertion or strenuous movements or postures, initial encounter
CPT/HCPCS: 29515; 99283; 73610; E0114; L1902

== ENCOUNTER 2018-07-29 11:38 | Emergency (ER) | payer MEDICAID, SELFPAY ==
[2018-07-29 11:43] VITALS: BP 126/67; PULSE 87; RESP 16; TEMP 36.5; O2SAT 96
--- NOTE | 2018-07-29 12:08 | W.ED.GENAD ---
Discharge Plan Disposition Patient Disposition: HOME Condition: Improving Discharge Details Chief Complaint: Headache Clinical Impression: Headache, migraine Primary Care Provider: Sarah Beltrán ED Provider: James Sanchez Home Meds and New Rx's Prescriptions: Continued albuterol sulfate 90 mcg/actuation HFA aerosol inhaler 2 puff IH Q6H PRNRF: 0 epinephrine 0.3 mg/0.3 mL auto-injector 0.3 mg IM ONCE Qty: 1 RF: 0 sumatriptan succinate 50 mg tablet 50 mg PO PRN MDD 100mg Qty: 30 RF: 1 meclizine 25 mg tablet 25 mg PO TID PRN (Reason: dizziness) Qty: 30 RF: 0 lansoprazole 30 mg capsule,delayed release(DR/EC) 30 mg PO DAILY Qty: 90 RF: 3 cetirizine [All Day Allergy (cetirizine)] 10 mg tablet 10 mg PO DAILY Qty: 90 RF: 3 fluoxetine 20 mg capsule 20 mg PO DAILY Qty: 90 RF: 0 Discharge Instructions Instructions: Migraine Headache (ED) Additional Instructions: Continue to stay well-hydrated and take your medication as prescribed. Feel free to return to the emergency department for any new or significant worsening of symptoms otherwise follow-up with your primary care provider as needed for reassessment Stand Alone Forms: Work Release Referrals: Sarah Beltrán MD [Primary Care Provider] - (As needed for reassessment) Discharge Data Discharge Date/Time-TO BE ENTERED AT DEPARTURE: 07/29/18 14:38 Medical Decision Making Patient presenting to the emergency department for chief complaint of migraine headache. Patient states that this is similar to her other migraine headaches and this started on Sunday with her typical symptoms of pressure, photophobia, and sensitivity to sounds. She took her Imitrex over the weekend along with some Advil but has not had any improvement of symptoms. Patient also states some noted vertigo which she has had in the past and that she attempted to take meclizine yesterday evening but this did not help given that she vomited shortly after taking it. Patient denies any fever, focal neurological deficits, other associated symptoms. Physical exam shows some photophobia otherwise unremarkable examination with no focal neurological deficits, no meningeal signs, normal cranial and otherwise neurological exam. Plan to treat symptomatically with IV fluids, Benadryl Compazine and Toradol and reassess. Of note is that patient states that she has been under significant amount of family stressors which she does state may have contributed to her headache. Patient reassessed and had no worsening of her symptoms but stated minimal to no improvement after IV fluids and meds. Patient was ordered 10 mg Decadron, additional liter of fluids, and 0.5 Ativan. Patient reassessed and states that she is starting to note good amount of improvement of symptoms and is feel ready to go home. Patient was p.o. challenged and was able to appropriately tolerate p.o. hydration and food. Return precautions discussed. After discussion of diagnosis and plan of care patient is no further needs, questions, or concerns and states clear understanding to return to the emergency department for any worsening symptoms. HPI General Mode of arrival: ambulatory. Date/Time Provider Initiated Documentation: 07/29/18 11:50. Limitations to Documentation: no limitations. Information obtained by: patient, RN notes reviewed and old records reviewed. History of Present Illness 43 year old F presents to the emergency department with the chief complaint of Migraine headache, described as severe and similar to prior episodes, with intensity rated at 10. Quality is described as aching, and is localized to the head. Patient started experiencing this day(s) (3) and it has been constant. No relieving factors improve symptom(s), Patient did receive the following treatments prior to arrival, NSAID Related Data Home Medications Medication Instructions Recorded Confirmed albuterol sulfate HFA 90 2 puff IH Q6H PRN 12/05/17 07/29/18 mcg/actuation aerosol inhaler epinephrine 0.3 mg/0.3 mL 0.3 mg IM ONCE #1 each 12/05/17 07/29/18 injection, auto-injector cetirizine 10 mg tablet 10 mg PO DAILY #90 tab 04/01/18 07/29/18 lansoprazole 30 mg capsule,delayed 30 mg PO DAILY #90 cap 04/01/18 07/29/18 release meclizine 25 mg tablet 25 mg PO TID PRN #30 tab 04/23/18 07/29/18 sumatriptan 50 mg tablet 50 mg PO PRN #30 tab MDD 100mg 04/23/18 07/29/18 fluoxetine 20 mg capsule 20 mg PO DAILY #90 cap 05/13/18 07/29/18 Previous Rx's Medication Instructions Recorded epinephrine 0.3 mg/0.3 mL 0.3 mg IM ONCE #1 each 12/05/17 injection, auto-injector cetirizine 10 mg tablet 10 mg PO DAILY #90 tab 04/01/18 lansoprazole 30 mg capsule,delayed 30 mg PO DAILY #90 cap 04/01/18 release meclizine 25 mg tablet 25 mg PO TID PRN #30 tab 04/23/18 sumatriptan 50 mg tablet 50 mg PO PRN #30 tab MDD 100mg 04/23/18 fluoxetine 20 mg capsule 20 mg PO DAILY #90 cap 05/13/18 Allergies Allergy/AdvReac Type Severity Reaction Status Date / Time venom-honey bee Allergy Severe Unverified 07/29/18 11:46 Sulfa (Sulfonamide Allergy HIVES Unverified 07/29/18 11:46 Antibiotics) General Stated Complaint: Headache MIKE: 3 Review of Systems Constitutional Denies fever(s), Denies frequent falls, Reports headache(s) and Reports poor appetite Eyes Denies change in vision, Denies loss of vision, Denies eye pain and Reports photophobia ENT Reports vertigo, Reports headache(s), Denies nasal congestion and Denies nasal discharge Cardiovascular Denies chest pain, Denies syncope and Denies dyspnea Respiratory Denies cough and Denies dyspnea Gastrointestinal Reports nausea and Reports vomiting Neurologic Reports as per HPI, Reports vertigo, Denies syncope, Denies frequent falls, Reports headache(s), Denies focal weakness, Denies loss of vision and Denies sensory deficit [facility] Surgical History ANAL SURGERY Dilation and curettage Endometrial Ablation (~2009) Ligation of fallopian tube discectomy (~2003) Family History Mother Hyperlipidemia Thyroid disorder Father Essential hypertension Diabetes Personal history of malignant neoplasm Heart disease Hyperlipidemia Sister No problems noted. Brother No problems noted. Grandfather No problems noted. Grandfather No problems noted. Grandmother No problems noted. Grandmother No problems noted. Social History Smoking/Tobacco Use Status: Former Tobacco Use Alcohol Intake: never Drug use: Never Do you feel safe in your relationship?: Yes Exam Const General: cooperative, healthy appearing, no acute distress and well groomed Orientation: alert, awake and oriented x3 HENMT Head: normal to inspection Ears: hearing grossly normal bilaterally and TM's normal bilaterally Mouth: oral mucosae normal, lip normal and tongue normal Throat: posterior oropharynx normal, tonsils normal and uvula midline Eyes Visual Velez: normal visual velez by confrontation Alignment and Position: alignment normal Periorbital: periorbital findings normal Eyelids: eyelids normal Sclera: sclerae normal Cornea: corneas normal Pupils: PERRL EOM: EOM intact bilaterally Neck Neck: normal visual inspection, full ROM, no lymphadenopathy and no meningeal signs Resp Effort & Inspection: normal respiratory effort and able to speak in complete sentences Auscultation: clear to auscultation bilaterally Cardio Rate: regular rate Rhythm: regular rhythm Heart Sounds: S1 normal and S2 normal Neuro General: alert, awake, oriented x3, gait normal, tone normal, moves all extremities, CN's II-XI intact bilaterally and not confused Cognition: normal cognition Speech: speech normal Motor: muscle tone normal throughout, strength 5/5 throughout, no pronator drift, no movement abnormalities noted and no fasciculations Sensory Exam: no sensory deficits noted Coordination: [id number] test normal, Does not sway with eyes open, rapid alternating movement UE normal and rapid alternating movement LE normal Course Vital Signs Temperature 36.5 C 07/29/18 11:43 Pulse 87 07/29/18 11:43 Respiratory Rate 16 07/29/18 11:43 Blood Pressure 126/67 07/29/18 11:43 Pulse Oximetry 96 07/29/18 11:43 Temperature 36.5 C 07/29/18 11:43 Temperature Source Skin 07/29/18 11:43 Pulse 87 07/29/18 11:43 Respiratory Rate 16 07/29/18 11:43 Respiratory Effort Non-Labored 07/29/18 11:43 Blood Pressure 126/67 07/29/18 11:43 Blood Pressure Position Sitting 07/29/18 11:43 Pulse Oximetry 96 07/29/18 11:43 Oxygen Delivery Method Room Air 07/29/18 11:43 Oxygen Flow Rate 0 07/29/18 11:43 Pain Level 10 07/29/18 11:43
--- NOTE | 2018-07-29 12:14 | ED.GENADUL_ITS ---
Discharge Plan Disposition Patient Disposition: HOME Condition: Improving Discharge Details Chief Complaint: Headache Clinical Impression: Headache, migraine Primary Care Provider: Sarah Beltrán ED Provider: James Sanchez Home Meds and New Rx's Prescriptions: Continued albuterol sulfate 90 mcg/actuation HFA aerosol inhaler 2 puff IH Q6H PRNRF: 0 epinephrine 0.3 mg/0.3 mL auto-injector 0.3 mg IM ONCE Qty: 1 RF: 0 sumatriptan succinate 50 mg tablet 50 mg PO PRN MDD 100mg Qty: 30 RF: 1 meclizine 25 mg tablet 25 mg PO TID PRN (Reason: dizziness) Qty: 30 RF: 0 lansoprazole 30 mg capsule,delayed release(DR/EC) 30 mg PO DAILY Qty: 90 RF: 3 cetirizine [All Day Allergy (cetirizine)] 10 mg tablet 10 mg PO DAILY Qty: 90 RF: 3 fluoxetine 20 mg capsule 20 mg PO DAILY Qty: 90 RF: 0 Discharge Instructions Instructions: Migraine Headache (ED) Additional Instructions: Continue to stay well-hydrated and take your medication as prescribed. Feel free to return to the emergency department for any new or significant worsening of symptoms otherwise follow-up with your primary care provider as needed for reassessment Stand Alone Forms: Work Release Referrals: Sarah Beltrán MD [Primary Care Provider] - (As needed for reassessment) Discharge Data Discharge Date/Time-TO BE ENTERED AT DEPARTURE: 07/29/18 14:38 Medical Decision Making Patient presenting to the emergency department for chief complaint of migraine headache. Patient states that this is similar to her other migraine headaches and this started on Sunday with her typical symptoms of pressure, photophobia, and sensitivity to sounds. She took her Imitrex over the weekend along with some Advil but has not had any improvement of symptoms. Patient also states some noted vertigo which she has had in the past and that she attempted to take meclizine yesterday evening but this did not help given that she vomited shortly after taking it. Patient denies any fever, focal neurological deficits, other associated symptoms. Physical exam shows some photophobia otherwise un remarkable examination with no focal neurological deficits, no meningeal signs, normal cranial and otherwise neurological exam. Plan to treat symptomatically with IV fluids, Benadryl Compazine and Toradol and reassess. Of note is that patient states that she has been under significant amount of family stressors which she does state may have contributed to her headache. Patient reassessed and had no worsening of her symptoms but stated minimal to no improvement after IV fluids and meds. Patient was ordered 10 mg Decadron, additional liter of fluids, and 0.5 Ativan. Patient reassessed and states that she is starting to note good amount of improvement of symptoms and is feel ready to go home. Patient was p.o. challenged and was able to appropriately tolerate p.o. hydration and food. Return precautions discussed. After discussion of diagnosis and plan of care patient is no further needs, questions, or concerns and states clear understanding to return to the emergency department for any worsening symptoms. HPI General Mode of arrival: ambulatory . Date/Time Provider Initiated Documentation: 07/29/18 11:50 . Limitations to Documentation: no limitations . Information obtained by: patient, RN notes reviewed and old records reviewed . History of Present Illness 43 year old F presents to the emergency department with the chief complaint of Migraine headache, described as severe and similar to prior episodes, with intensity rated at 10. Quality is described as aching, and is localized to the head. Patient started experiencing this day(s) (3) and it has been constant. No relieving factors improve symptom(s), Patient did receive the following treatments prior to arrival, NSAID Related Data Home Medications Medication Instructions Recorded Confirmed albuterol sulfate HFA 90 2 puff IH Q6H PRN 12/05/17 07/29/18 mcg/actuation aerosol inhaler epinephrine 0.3 mg/0.3 mL 0.3 mg IM ONCE #1 each 12/05/17 07/29/18 injection, auto-injector cetirizine 10 mg tablet 10 mg PO DAILY #90 tab 04/01/18 07/29/18 lansoprazole 30 mg capsule,delayed 30 mg PO DAILY #90 cap 04/01/18 07/29/18 release meclizine 25 mg tablet 25 mg PO TID PRN #30 tab 04/23/18 07/29/18 sumatriptan 50 mg tablet 50 mg PO PRN #30 tab MDD 100mg 04/23/18 07/29/18 fluoxetine 20 mg capsule 20 mg PO DAILY #90 cap 05/13/18 07/29/18 Previous Rx's Medication Instructions Recorded epinephrine 0.3 mg/0.3 mL 0.3 mg IM ONCE #1 each 12/05/17 injection, auto-injector cetirizine 10 mg tablet 10 mg PO DAILY #90 tab 04/01/18 lansoprazole 30 mg capsule,delayed 30 mg PO DAILY #90 cap 04/01/18 release meclizine 25 mg tablet 25 mg PO TID PRN #30 tab 04/23/18 sumatriptan 50 mg tablet 50 mg PO PRN #30 tab MDD 100mg 04/23/18 fluoxetine 20 mg capsule 20 mg PO DAILY #90 cap 05/13/18 Allergies Allergy/AdvReac Type Severity Reaction Status Date / Time venom-honey bee Allergy Severe Unverified 07/29/18 11:46 Sulfa (Sulfonamide Allergy HIVES Unverified 07/29/18 11:46 Antibiotics) General Stated Complaint: Headache MIKE: 3 Review of Systems Constitutional Denies fever(s), Denies frequent falls, Reports headache(s) and Reports poor appetite Eyes Denies change in vision, Denies loss of vision, Denies eye pain and Reports photophobia ENT Reports vertigo, Reports headache(s), Denies nasal congestion and Denies nasal discharge Cardiovascular Denies chest pain, Denies syncope and Denies dyspnea Respiratory Denies cough and Denies dyspnea Gastrointestinal Reports nausea and Reports vomiting Neurologic Reports as per HPI, Reports vertigo, Denies syncope, Denies frequent falls, Reports headache(s), Denies focal weakness, Denies loss of vision and Denies sensory deficit [facility] Surgical History ANAL SURGERY Dilation and curettage Endometrial Ablation (~2009) Ligation of fallopian tube discectomy (~2003) Family History Mother Hyperlipidemia Thyroid disorder Father Essential hypertension Diabetes Personal history of malignant neoplasm Heart disease Hyperlipidemia Sister No problems noted. Brother No problems noted. Grandfather No problems noted. Grandfather No problems noted. Grandmother No problems noted. Grandmother No problems noted. Social History Smoking/Tobacco Use Status: Former Tobacco Use Alcohol Intake: never Drug use: Never Do you feel safe in your relationship?: Yes Exam Const General: cooperative, healthy appearing, no acute distress and well groomed Orientation: alert, awake and oriented x3 HENMT Head: normal to inspection Ears: hearing grossly normal bilaterally and TM's normal bilaterally Mouth: oral mucosae normal, lip normal and tongue normal Throat: posterior oropharynx normal, tonsils normal and uvula midline Eyes Visual Velez: normal visual velez by confrontation Alignment and Position: alignment normal Periorbital: periorbital findings normal Eyelids: eyelids normal Sclera: sclerae normal Cornea: corneas normal Pupils: PERRL EOM: EOM intact bilaterally Neck Neck: normal visual inspection, full ROM, no lymphadenopathy and no meningeal signs Resp Effort & Inspection: normal respiratory effort and able to speak in complete sentences Auscultation: clear to auscultation bilaterally Cardio Rate: regular rate Rhythm: regular rhythm Heart Sounds: S1 normal and S2 normal Neuro General: alert, awake, oriented x3, gait normal, tone normal, moves all extremities, CN's II-XI intact bilaterally and not confused Cognition: normal cognition Speech: speech normal Motor: muscle tone normal throughout, strength 5/5 throughout, no pronator drift, no movement abnormalities noted and no fasciculations Sensory Exam: no sensory deficits noted Coordination: [id number] test normal, Does not sway with eyes open, rapid alternating movement UE normal and rapid alternating movement LE normal Course Vital Signs Temperature 36.5 C 07/29/18 11:43 Pulse 87 07/29/18 11:43 Respiratory Rate 16 07/29/18 11:43 Blood Pressure 126/67 07/29/18 11:43 Pulse Oximetry 96 07/29/18 11:43 Temperature 36.5 C 07/29/18 11:43 Temperature Source Skin 07/29/18 11:43 Pulse 87 07/29/18 11:43 Respiratory Rate 16 07/29/18 11:43 Respiratory Effort Non-Labored 07/29/18 11:43 Blood Pressure 126/67 07/29/18 11:43 Blood Pressure Position Sitting 07/29/18 11:43 Pulse Oximetry 96 07/29/18 11:43 Oxygen Delivery Method Room Air 07/29/18 11:43 Oxygen Flow Rate 0 07/29/18 11:43 Pain Level 10 07/29/18 11:43
[2018-07-29] MEDS: Normal Saline 1,000 ML 1000 ML IV ×2 (12:15→13:18)
[2018-07-29] MEDS: diphenhydrAMINE 50 MG/ML VIAL IVP (12:25)
[2018-07-29] MEDS: Ketorolac 30 MG/ML VIAL IVP (12:27)
[2018-07-29] MEDS: Prochlorperazine 10 MG/2 ML VIAL IVP (12:31)
[2018-07-29] MEDS: Normal Saline 50 ML 200 ML (12:32)
[2018-07-29] MEDS: LORazepam 2 MG/ML VIAL 0.5 MG IVP (13:24)
[2018-07-29] MEDS: Dexamethasone 10 MG/ML VIAL IVP (13:24)
[2018-07-29 14:36] VITALS: BP 117/73; PULSE 60; RESP 16; TEMP 36.4; O2SAT 98
== END 2018-07-29 14:38 | disposition home or self-care (01) ==
PROVIDERS: Emergency Provider Nurse Practitioner Family; PCP Family Medicine
DX: G43.909 Migraine, unspecified, not intractable, without status migrainosus (principal)
CPT/HCPCS: 96361; 96374; 96375; 99284; J0780; J1100; J1200; J1885; J2060

== ENCOUNTER 2018-10-19 13:50 | Inpatient (IN) | payer MEDICAID, SELFPAY ==
[2018-10-19] VITALS (65 sets, daily range): BP systolic 76–168; BP diastolic 44–95; PULSE 56–146; RESP 14–46; TEMP 36.5–37.5; O2SAT 92–100
[2018-10-19] MEDS: Normal Saline 1,000 ML 1000 ML IV (14:27)
[2018-10-19 14:31] LABS: Abs Immature Grans 0.01 k/cumm (0.0-0.09); Absolute Basophil Count 0.01 k/cumm (0.0-0.2); Absolute Eosinophil Count 0.05 k/cumm (0.0-0.7); Absolute Lymphocyte Count 2.48 k/cumm (1.2-3.4); Absolute Monocyte Count 0.52 k/cumm (0.11-0.7); Absolute Neutrophil Count 3.55 k/cumm (1.2-6.7); Basophils % 0.2; Eosinophils % 0.8; HCT 37.5 % (36.0-46.0); HGB 13.2 g/dL (12.0-15.5); Immature Grans % 0.2; Lymphocytes % 37.5; Mean Corp. HGB Concentration 35.2 g/dL (32.0-36.0); Mean Corpuscular Hemoglobin 30.2 pg (27.0-33.0); Mean Corpuscular Volume 85.8 fL (80-95); Mean Platelet Volume 12.2 fL (8.0-11.0); Monocytes % 7.9; Neutrophils % 53.4; Platelet Count 221 x1000/uL (130-400); RBC 4.37 m/cumm (4.00-5.20); RBC Distribution Width 12.6 % (11.7-14.6); White Blood Cell Count 6.62 k/cumm (4.4-10.8)
[2018-10-19 14:45] LABS: HCO3 (Venous) 21 mmol/L (22-28); O2 Sat (Venous) 75 % (70-80); TCO2 (Venous) 22 mmol/L (22-29); pCO2 (Venous) 31 mm/Hg (34-47); pH (Venous) 7.44 (7.32-7.43); pO2 (Venous) 38 mm/Hg (28-44)
[2018-10-19 15:03] LABS: Bilirubin Negative (Negative); Blood Negative (Negative); Clarity Clear (Clear); Glucose Negative (Negative); Ketones Negative (Negative); Leukocyte Esterase Negative (Negative); Nitrite Negative (Negative); Urobilinogen 0.2 EU/dL (Up TO 0.2)
[2018-10-19 15:05] LABS: ALT 12 U/L (12-78); AST 13 U/L (15-37); Albumin 3.1 g/dL (3.4-5.0); Alkaline Phosphatase 82 U/L (46-116); Anion Gap 11.3 mmol/L (3-11); BUN 9 mg/dL (7-18); Bilirubin, Direct 0.12 mg/dL (0.00-0.20); Bilirubin, Total 0.5 mg/dL (0.2-1.0); CO2 24.7 mmol/L (21.0-32.0); CREATININE 0.94 mg/dL (0.55-1.02); Calcium 8.2 mg/dL (8.5-10.1); Chloride 108 mmol/L (98-107); Creatine Kinase 106 U/L (26-192); Glucose 96 mg/dL (70-100); Lipase 118 U/L (73-393); Magnesium 1.7 mg/dL (1.8-2.4); Sodium 144 mmol/L (136-145); Total Protein 6.1 g/dL (6.4-8.2)
[2018-10-19 15:10] LABS: Troponin I < 0.05 ng/mL (0.00-0.06)
[2018-10-19 15:11] LABS: Potassium 2.6 mmol/L (3.5-5.1)
[2018-10-19 15:24] LABS: *AMPHETAMINES SCREEN URINE Negative (Negative); *BARBITURATES SCREEN URINE Negative (Negative); *BENZODIAZEPINES SCREEN URINE Negative (Negative); Cannabinoids THC Negative (Negative); Cocaine Screen,Urine Negative (Negative); METHADONE URINE SCREEN Negative (Negative); OPIATES URINE SCREEN Negative (Negative)
[2018-10-19 15:27] LABS: Tricyclic Antidepressants Negative (Negative)
--- NOTE | 2018-10-19 15:48 | W.ED.GENAD ---
Discharge Plan Discharge Details Chief Complaint: SOB Primary Care Provider: Sarah Beltrán ED Provider: Siddharth Barragan Home Meds and New Rx's Prescriptions: No Action albuterol sulfate 90 mcg/actuation HFA aerosol inhaler 2 puff IH Q6H PRNRF: 0 epinephrine 0.3 mg/0.3 mL auto-injector 0.3 mg IM ONCE Qty: 1 RF: 0 sumatriptan succinate 50 mg tablet 50 mg PO PRN MDD 100mg Qty: 30 RF: 1 meclizine 25 mg tablet 25 mg PO TID PRN (Reason: dizziness) Qty: 30 RF: 0 cetirizine [All Day Allergy (cetirizine)] 10 mg tablet 10 mg PO DAILY Qty: 90 RF: 3 fluoxetine 20 mg capsule 20 mg PO DAILY Qty: 90 RF: 3 lansoprazole 30 mg capsule,delayed release(DR/EC) 30 mg PO DAILY Qty: 90 RF: 3 Medical Decision Making 43-year-old female status post near syncopal episode with mild hypotension on arrival that resolved with time and IV fluids. Shortly after arrival patient had a spell with some shaking and confusion witnessed by nursing upon MD arrival patient mildly confused arousable to pain and then rapidly oriented possible atypical seizure patient without a seizure history vs syncope vs stress reaction. Patient reports 1 or 2 episodeslike this in the past no neurologic work-up. no incont, no oral trauma. After IV fluids patient more collected able to provide clear history reports constipation and right lower quadrant pain for the last 4 days. Broad differential diagnosis near-syncope anemia urinary tract infection new onset seizure in setting of right lower quadrant pain vs appendicitis will obtain labs give IV fluids CT head CT abdomen pelvis and observe in the emergency department. Patient low risk for PE PERC negative ECG: Regular sinus rhythm 72+ left axis deviation mildly prolonged QTC no ectopy no STEMI + small t waves no u waves 6pm labs significant for hypokalemia 2.5 no clear etiology no diarrhea no medications to explain electrolyte abnormalities no diuretics no laxatives denies any new diet though admits to poor p.o. intake over the last week . No history of induced induced emesis +mild hypomagnesemia. Magnesium and potassium repleted CT abdomen pelvis with IV contrast shows irregularities in the right lower quadrant without clear visualization of the appendix repeat exam shows continued right lower quadrant pain CT with p.o. contrast obtained normal appendix. Patient with hypokalemia syncope normal head CT discussed with Dr. Carney for medical admission for electrolyte management serial abdominal exams and further management. HPI 43-year-old female past medical history for asthma depression chronic lower back pain prior back surgery for disc herniations and reported hysterectomy was at work today when suddenly felt shortness of breath weakness and almost passed out. On arrival in the emergency department patient is complaining of weakness and mild malaise on review of systems patient also complaining of intermittent right lower quadrant cramping last few days. No dysuria no vaginal discharge no nausea vomiting diarrhea or chest pain. No loss of consciousness no fever no chills. General Date/Time Provider Initiated Documentation: 10/19/18 14:01. Related Data Home Medications Medication Instructions Recorded Confirmed albuterol sulfate 90 mcg/actuation 2 puff IH Q6H PRN 12/05/17 10/19/18 aerosol inhaler epinephrine 0.3 mg/0.3 mL 0.3 mg IM ONCE #1 each 12/05/17 10/19/18 injection, auto-injector meclizine 25 mg tablet 25 mg PO TID PRN #30 tab 04/23/18 10/19/18 sumatriptan succinate 50 mg tablet 50 mg PO PRN #30 tab MDD 100mg 04/23/18 10/19/18 cetirizine 10 mg tablet 10 mg PO DAILY #90 tab 08/12/18 10/19/18 fluoxetine 20 mg capsule 20 mg PO DAILY #90 cap 08/12/18 10/19/18 lansoprazole 30 mg capsule,delayed 30 mg PO DAILY #90 cap 08/12/18 10/19/18 release Previous Rx's Medication Instructions Recorded epinephrine 0.3 mg/0.3 mL 0.3 mg IM ONCE #1 each 12/05/17 injection, auto-injector meclizine 25 mg tablet 25 mg PO TID PRN #30 tab 04/23/18 sumatriptan succinate 50 mg tablet 50 mg PO PRN #30 tab MDD 100mg 04/23/18 cetirizine 10 mg tablet 10 mg PO DAILY #90 tab 08/12/18 fluoxetine 20 mg capsule 20 mg PO DAILY #90 cap 08/12/18 lansoprazole 30 mg capsule,delayed 30 mg PO DAILY #90 cap 08/12/18 release Allergies Allergy/AdvReac Type Severity Reaction Status Date / Time venom-honey bee Allergy Severe Unverified 10/19/18 14:39 Sulfa (Sulfonamide Allergy HIVES Unverified 10/19/18 14:39 Antibiotics) General Stated Complaint: SOB MIKE: 3 Review of Systems Review of Systems All systems reviewed & are unremarkable except as noted in HPI and below PFSH Social History Smoking/Tobacco Use Status: Former Tobacco Use Alcohol Intake: never Drug use: Never Do you feel safe in your relationship?: Yes Exam Narrative Exam Narrative: Pulse oximetry reviewed by me and is normal: Constitutional: in no acute distress. well appearing. oriented to person, place, and time. Eyes: conjunctivae are normal. Pupils are equal, round, and reactive to light. No scleral icterus. extraocular muscles are intact Ears/Nose/Mouth/Throat: muscousal membranes are moist. Musculoskeletal: neck is supple. normal range of motion in all extremities. Cardiovascular: Normal rate and rhythm. No lower extremity edema RRR Respiratory: effort is normal. no stridor or respiratory distress. LCTA GastrointestinaI: abdomen soft, +BS, positive tenderness right lower quadrant -rebound, -guarding. Neurological: alert and oriented to person, place, and time. normal strength, no tremor. Skin: Skin is warm and dry. not diaphoretic. Distal perfusion intact, warm extremities, cap refill < 2 seconds. Hem/Lymph/Imm: No cervical LAD, no goiter, no conjunctival pallor Psych: normal mood and affect. behavior is normal Triage and nurse notes reviewed. Course Vital Signs Temperature 37.5 C 10/19/18 13:50 Pulse 88 10/19/18 13:50 Respiratory Rate 16 10/19/18 13:50 Temperature 37.5 C 10/19/18 13:50 Temperature Source Temporal Artery Scan 10/19/18 13:50 Pulse 88 10/19/18 13:50 Respiratory Rate 16 10/19/18 13:50 Respiratory Effort 10/19/18 15:21 Respiratory Depth Normal 10/19/18 15:21 Respiratory Pattern Normal 10/19/18 15:21 Oxygen Delivery Method Room Air 10/19/18 13:50 Oxygen Flow Rate 0 10/19/18 13:50 Lab/Test Results Lab/Test Results: Laboratory Tests Range/Units 10/19/18 10/19/18 10/19/18 14:20 14:20 14:20 WBC (4.4-10.8) k/cumm 6.62 RBC (4.00-5.20) m/cumm 4.37 Hgb (12.0-15.5) g/dL 13.2 Hct (36.0-46.0) % 37.5 MCV (80-95) fL 85.8 MCH (27.0-33.0) pg 30.2 MCHC (32.0-36.0) g/dL 35.2 RDW (11.7-14.6) % 12.6 Plt Count (130-400) x1000/uL 221 MPV (8.0-11.0) fL 12.2 H Immature Gran % 0.2 Neutrophils % 53.4 Lymphocytes % 37.5 Monocytes % 7.9 Eosinophils % 0.8 Basophils % 0.2 Absolute Neutrophils (1.2-6.7) k/cumm 3.55 Absolute Lymphocytes (1.2-3.4) k/cumm 2.48 Absolute Monocytes (0.11-0.7) k/cumm 0.52 Absolute Eosinophils (0.0-0.7) k/cumm 0.05 Absolute Basophils (0.0-0.2) k/cumm 0.01 VBG pH (7.32-7.43) VBG pCO2 (34-47) mm/Hg VBG pO2 (28-44) mm/Hg VBG HCO3 (22-28) mmol/L VBG Total CO2 (22-29) mmol/L VBG O2 Saturation (70-80) % VBG Base Excess (-3-3) mmol/L Sodium (136-145) mmol/L 144 Cancelled Potassium (3.5-5.1) mmol/L 2.6 L* Cancelled Chloride (98-107) mmol/L 108 H Cancelled Carbon Dioxide (21.0-32.0) mmol/L 24.7 Cancelled Anion Gap (3-11) mmol/L 11.3 H Cancelled BUN (7-18) mg/dL 9 Cancelled Creatinine (0.55-1.02) mg/dL 0.94 Cancelled Estimated GFR/1.73 m2 (mL/min/1.73m2) >= 60.00 Cancelled Glucose (70-100) mg/dL 96 Cancelled Calcium (8.5-10.1) mg/dL 8.2 L Cancelled Magnesium (1.8-2.4) mg/dL 1.7 L Total Bilirubin (0.2-1.0) mg/dL 0.5 Cancelled Conjugated Bilirubin (0.00-0.20) mg/dL 0.12 AST (15-37) U/L 13 L Cancelled ALT (12-78) U/L 12 Cancelled Alkaline Phosphatase (46-116) U/L 82 Cancelled Creatine Kinase (26-192) U/L 106 Troponin I (0.00-0.06) ng/mL < 0.05 Total Protein (6.4-8.2) g/dL 6.1 L Cancelled Albumin (3.4-5.0) g/dL 3.1 L Cancelled Lipase (73-393) U/L 118 Urine Color (Yellow) Urine Clarity (Clear) Urine pH (5-8) Ur Specific [place] (1.005-1.025) Urine Protein (Negative) mg/dL Urine Ketones (Negative) mg/dL Urine Blood (Negative) Urine Nitrite (Negative) Urine Bilirubin (Negative) Urine Urobilinogen (Up TO 0.2) EU/dL Ur Leukocyte Esterase (Negative) Urine Glucose (Negative) mg/dL Urine Opiates Screen (Negative) Urine Methadone Screen (Negative) Ur Barbiturates Screen (Negative) Ur Tricyclics Screen (Negative) Ur Amphetamines Screen (Negative) U Benzodiazepines Scrn (Negative) Urine Cocaine Screen (Negative) Ur THC Screen (Negative) Range/Units 10/19/18 10/19/18 10/19/18 14:20 14:30 14:51 WBC (4.4-10.8) k/cumm RBC (4.00-5.20) m/cumm Hgb (12.0-15.5) g/dL Hct (36.0-46.0) % MCV (80-95) fL MCH (27.0-33.0) pg MCHC (32.0-36.0) g/dL RDW (11.7-14.6) % Plt Count (130-400) x1000/uL MPV (8.0-11.0) fL Immature Gran % Neutrophils % Lymphocytes % Monocytes % Eosinophils % Basophils % Absolute Neutrophils (1.2-6.7) k/cumm Absolute Lymphocytes (1.2-3.4) k/cumm Absolute Monocytes (0.11-0.7) k/cumm Absolute Eosinophils (0.0-0.7) k/cumm Absolute Basophils (0.0-0.2) k/cumm VBG pH (7.32-7.43) 7.44 H VBG pCO2 (34-47) mm/Hg 31 L VBG pO2 (28-44) mm/Hg 38 VBG HCO3 (22-28) mmol/L 21 L VBG Total CO2 (22-29) mmol/L 22 VBG O2 Saturation (70-80) % 75 VBG Base Excess (-3-3) mmol/L -3.0 Sodium (136-145) mmol/L Potassium (3.5-5.1) mmol/L Chloride (98-107) mmol/L Carbon Dioxide (21.0-32.0) mmol/L Anion Gap (3-11) mmol/L BUN (7-18) mg/dL Creatinine (0.55-1.02) mg/dL Estimated GFR/1.73 m2 (mL/min/1.73m2) Glucose (70-100) mg/dL Calcium (8.5-10.1) mg/dL Magnesium (1.8-2.4) mg/dL Total Bilirubin (0.2-1.0) mg/dL Conjugated Bilirubin (0.00-0.20) mg/dL AST (15-37) U/L ALT (12-78) U/L Alkaline Phosphatase (46-116) U/L Creatine Kinase (26-192) U/L Cancelled Troponin I (0.00-0.06) ng/mL Total Protein (6.4-8.2) g/dL Albumin (3.4-5.0) g/dL Lipase (73-393) U/L Urine Color (Yellow) Yellow Urine Clarity (Clear) Clear Urine pH (5-8) 7.0 Ur Specific [place] (1.005-1.025) 1.010 Urine Protein (Negative) mg/dL Negative Urine Ketones (Negative) mg/dL Negative Urine Blood (Negative) Negative Urine Nitrite (Negative) Negative Urine Bilirubin (Negative) Negative Urine Urobilinogen (Up TO 0.2) EU/dL 0.2 Ur Leukocyte Esterase (Negative) Negative Urine Glucose (Negative) mg/dL Negative Urine Opiates Screen (Negative) Urine Methadone Screen (Negative) Ur Barbiturates Screen (Negative) Ur Tricyclics Screen (Negative) Ur Amphetamines Screen (Negative) U Benzodiazepines Scrn (Negative) Urine Cocaine Screen (Negative) Ur THC Screen (Negative) Range/Units 10/19/18 14:51 WBC (4.4-10.8) k/cumm RBC (4.00-5.20) m/cumm Hgb (12.0-15.5) g/dL Hct (36.0-46.0) % MCV (80-95) fL MCH (27.0-33.0) pg MCHC (32.0-36.0) g/dL RDW (11.7-14.6) % Plt Count (130-400) x1000/uL MPV (8.0-11.0) fL Immature Gran % Neutrophils % Lymphocytes % Monocytes % Eosinophils % Basophils % Absolute Neutrophils (1.2-6.7) k/cumm Absolute Lymphocytes (1.2-3.4) k/cumm Absolute Monocytes (0.11-0.7) k/cumm Absolute Eosinophils (0.0-0.7) k/cumm Absolute Basophils (0.0-0.2) k/cumm VBG pH (7.32-7.43) VBG pCO2 (34-47) mm/Hg VBG pO2 (28-44) mm/Hg VBG HCO3 (22-28) mmol/L VBG Total CO2 (22-29) mmol/L VBG O2 Saturation (70-80) % VBG Base Excess (-3-3) mmol/L Sodium (136-145) mmol/L Potassium (3.5-5.1) mmol/L Chloride (98-107) mmol/L Carbon Dioxide (21.0-32.0) mmol/L Anion Gap (3-11) mmol/L BUN (7-18) mg/dL Creatinine (0.55-1.02) mg/dL Estimated GFR/1.73 m2 (mL/min/1.73m2) Glucose (70-100) mg/dL Calcium (8.5-10.1) mg/dL Magnesium (1.8-2.4) mg/dL Total Bilirubin (0.2-1.0) mg/dL Conjugated Bilirubin (0.00-0.20) mg/dL AST (15-37) U/L ALT (12-78) U/L Alkaline Phosphatase (46-116) U/L Creatine Kinase (26-192) U/L Troponin I (0.00-0.06) ng/mL Total Protein (6.4-8.2) g/dL Albumin (3.4-5.0) g/dL Lipase (73-393) U/L Urine Color (Yellow) Urine Clarity (Clear) Urine pH (5-8) Ur Specific [place] (1.005-1.025) Urine Protein (Negative) mg/dL Urine Ketones (Negative) mg/dL Urine Blood (Negative) Urine Nitrite (Negative) Urine Bilirubin (Negative) Urine Urobilinogen (Up TO 0.2) EU/dL Ur Leukocyte Esterase (Negative) Urine Glucose (Negative) mg/dL Urine Opiates Screen (Negative) Negative Urine Methadone Screen (Negative) Negative Ur Barbiturates Screen (Negative) Negative Ur Tricyclics Screen (Negative) Negative Ur Amphetamines Screen (Negative) Negative U Benzodiazepines Scrn (Negative) Negative Urine Cocaine Screen (Negative) Negative Ur THC Screen (Negative) Negative POC- Test(urine) Negative
[2018-10-19 15:54] LABS: Anion Gap 6.8 mmol/L (3-11); BUN 8 mg/dL (7-18); CO2 29.2 mmol/L (21.0-32.0); CREATININE 0.88 mg/dL (0.55-1.02); Calcium 8.6 mg/dL (8.5-10.1); Chloride 109 mmol/L (98-107); Glucose 96 mg/dL (70-100); Sodium 145 mmol/L (136-145)
[2018-10-19 16:05] LABS: Potassium 2.5 mmol/L (3.5-5.1)
--- NOTE | 2018-10-19 16:07 | DI.CT_ITS ---
SYMPTOM/DIAGNOSIS: POSSIBLE SZ CHANGE IN MENTAL STATUS CT BRAIN: Noncontrast. No priors. A noncontrast cranial CT was performed. The ventricular system is normal in appearance. There is no evidence of an intracranial mass lesion. There is no evidence of a subdural or epidural hematoma. No focal areas of decreased attenuation are seen. CONCLUSION: Normal noncontrast Cranial CT.
--- NOTE | 2018-10-19 16:17 | DI.VRAD_ITS ---
EXAM: CT Head Without Contrast EXAM DATE/TIME: 10/19/2018 2:58 PM CLINICAL HISTORY: 43 years old, female; Other: Possible sz chnage in mental status TECHNIQUE: Imaging protocol: Computed tomography images of the head without contrast. Coronal and sagittal reformatted images were created and reviewed. Radiation optimization: All CT scans at this facility use at least one of these dose optimization techniques: automated exposure control; mA and/or kV adjustment per patient size (includes targeted exams where dose is matched to clinical indication); or iterative reconstruction. COMPARISON: No relevant prior studies available. FINDINGS: Brain: Normal. No hemorrhage. Unremarkable white matter. No mass effect. Ventricles: Normal. No ventriculomegaly. Bones/joints: Unremarkable. No acute fracture. Sinuses: Visualized sinuses are unremarkable. No fluid levels. Mastoid air cells: Visualized mastoid air cells are well aerated. No mastoid effusion. Soft tissues: Unremarkable. IMPRESSION: No acute intracranial abnormality. Dictated and Authenticated by: Mihai Stevens MD. Ordering:ANGELINA Messina MD
--- NOTE | 2018-10-19 16:17 | DI.CT_ITS ---
SYMPTOM/DIAGNOSIS: RLQ PAIN, NEAR SYNCOPE CT SCAN ABDOMEN AND PELVIS: CT scan of the abdomen and pelvis was performed following the uneventful administration of intravenous contrast material. Comparison is 01/22/18 No acute findings are seen in the lung bases. The liver is unremarkable. No evidence of a suspicious hepatic mass is seen The portal, superior mesenteric and splenic veins are patent. The gallbladder is negative. There is no biliary ductal dilatation. The pancreas is unremarkable as are the spleen and adrenal glands. Note is made of a cyst in the right kidney. This is unchanged compared to prior examinations. No suspicious solid renal mass is seen. No obstruction is identified. The urinary bladder is intact. Reproductive organs are grossly unremarkable as visualized. The abdominal aorta is of normal caliber. No significant abdominal or pelvic adenopathy, ascites or pneumoperitoneum is seen. The bowel is unremarkable. The appendix is not definitely visualized on this examination but no right lower quadrant inflammatory process is appreciated. No acute osseous abnormalities identified. IMPRESSION: No evidence of an acute abdomen. The appendix is not definitely visualized. If there is continued concern a repeat examination with oral contrast may be obtained.
--- NOTE | 2018-10-19 16:26 | DI.VRAD_ITS ---
EXAM: CT Abdomen and Pelvis With Contrast EXAM DATE/TIME: 10/19/2018 2:49 PM CLINICAL HISTORY: 43 years old, female; Abdominal pain; Flank; Right lower quadrant (rlq); Patient HX: Rlq pain, near syncope TECHNIQUE: Imaging protocol: Axial computed tomography images of the abdomen and pelvis with intravenous contrast. Coronal and sagittal reformatted images were created and reviewed. Radiation optimization: All CT scans at this facility use at least one of these dose optimization techniques: automated exposure control; mA and/or kV adjustment per patient size (includes targeted exams where dose is matched to clinical indication); or iterative reconstruction. Contrast material: OMNI-PAQUE 350; Contrast volume: 100 ml; Contrast route: IV; COMPARISON: CT ABDOMEN PELVIS W 01/22/2018 10:55 PM FINDINGS: Lungs: Bibasilar atelectasis Liver: Normal. No mass. Gallbladder and bile ducts: Normal. No calcified stones. No ductal dilation. Pancreas: Normal. No ductal dilation. Spleen: Normal. No splenomegaly. Adrenals: Normal. No mass. Kidneys and ureters: 3.2 cm cyst in the right kidney No ureteral calculus. No renal calculus Stomach and bowel: See Appendix Finding. Appendix: The appendix is not identified. It was easily visualized on the prior study. There are fluid-filled loops of bowel around the ileocecal region. If acute appendicitis is strongly suspected, recommend repeat CT pelvis with oral contrast after oral contrast reaches the rectum. Intraperitoneal space: Mild amount of free fluid in the pelvis. Vasculature: Normal. No abdominal aortic aneurysm. Lymph nodes: Normal. No enlarged lymph nodes. Bladder: Unremarkable as visualized. Reproductive: Hysterectomy Bones/joints: No acute fracture. No dislocation. Soft tissues: Unremarkable. IMPRESSION: The appendix is not identified. It was easily visualized on the prior study. There are fluid-filled loops of bowel around the ileocecal region. If acute appendicitis is strongly suspected, recommend repeat CT pelvis with oral contrast after oral contrast reaches the rectum. Dictated and Authenticated by: Mihai Stevens MD. Ordering:ANGELINA Messina MD
[2018-10-19] MEDS: POTASSIUM CHLORIDE 20 MEQ/100 ML BAG 50 MEQ IVPB (16:30)
--- NOTE | 2018-10-19 17:24 | DI.CT_ITS ---
SYMPTOM/DIAGNOSIS: ABDOMINAL PAIN, ? APPENDICITIS CT ABDOMEN AND PELVIS: (09/[address] CT scan of the abdomen and pelvis was performed following the uneventful administration of intravenous and oral contrast material. Comparison is made with examination from earlier in the day. Dependent atelectatic changes are seen in the lung bases. The liver, spleen, pancreas, gallbladder, bile ducts and adrenal glands are unremarkable. The kidneys show normal and symmetric enhancement. No evidence of a solid renal mass or obstruction. Incidental note is again made of a right renal cyst. Urinary bladder is intact. Reproductive organs are unremarkable as visualized, The abdominal aorta is of normal caliber. No significant abdominal or pelvic adenopathy, ascites or pneumoperitoneum is present. The bowel shows no evidence of obstruction or inflammation. There is oral contrast seen within a normal appendix. No acute osseous abnormalities identified. IMPRESSION: No evidence of an acute abdomen. Normal appearance of the appendix which contains oral contrast.
[2018-10-19] MEDS: Omnipaque 350 MG/ML 100 ML BTL IJ (18:11)
--- NOTE | 2018-10-19 18:20 | DI.VRAD_ITS ---
EXAM: CT Abdomen and Pelvis With Contrast EXAM DATE/TIME: 10/19/2018 6:09 PM CLINICAL HISTORY: 43 years old, female; Abdominal pain; Other: ? Appendix TECHNIQUE: Imaging protocol: Axial computed tomography images of the abdomen and pelvis with intravenous contrast. Coronal and sagittal reformatted images were created and reviewed. Radiation optimization: All CT scans at this facility use at least one of these dose optimization techniques: automated exposure control; mA and/or kV adjustment per patient size (includes targeted exams where dose is matched to clinical indication); or iterative reconstruction. Contrast material: OMNI; Contrast volume: 75 ml; Contrast route: IV AND ORAL; COMPARISON: CT ABDOMEN PELVIS W 10/19/2018 4:07 PM FINDINGS: Liver: Normal. No mass. Gallbladder and bile ducts: Normal. No calcified stones. No ductal dilation. Pancreas: Normal. No ductal dilation. Spleen: Normal. No splenomegaly. Adrenals: Normal. No mass. Kidneys and ureters: Right renal cyst 3.2 cm Stomach and bowel: Normal. No obstruction. No mucosal thickening. Appendix: Normal appendix contains contrast. Intraperitoneal space: Normal. No free air. No significant fluid collection. Vasculature: Normal. No abdominal aortic aneurysm. Lymph nodes: Normal. No enlarged lymph nodes. Bladder: Distended bladder Reproductive: Bilateral tubal ligation Hysterectomy Bones/joints: No acute fracture. No dislocation. Soft tissues: Unremarkable. IMPRESSION: Normal appendix contains contrast. Dictated and Authenticated by: Mihai Stevens MD. Ordering:ANGELINA Messina MD
[2018-10-19 20:17] LABS: Troponin I < 0.05 ng/mL (0.00-0.06)
--- NOTE | 2018-10-19 20:23 | HPE_ITS ---
Date of service: 10/19/18 Time of Service: 20:24 [facility] Social History Smoking/Tobacco Use Status: Former Tobacco Use Alcohol Intake: never Drug use: Never Do you feel safe in your relationship?: Yes Meds Home Medications Medication Instructions Recorded Confirmed Type albuterol sulfate 90 mcg/actuation 2 puff IH Q6H PRN 12/05/17 10/19/18 History aerosol inhaler epinephrine 0.3 mg/0.3 mL 0.3 mg IM ONCE #1 each 12/05/17 10/19/18 Rx injection, auto-injector meclizine 25 mg tablet 25 mg PO TID PRN #30 tab 04/23/18 10/19/18 Rx sumatriptan succinate 50 mg tablet 50 mg PO PRN #30 tab MDD 100mg 04/23/18 10/19/18 Rx cetirizine 10 mg tablet 10 mg PO DAILY #90 tab 08/12/18 10/19/18 Rx fluoxetine 20 mg capsule 20 mg PO DAILY #90 cap 08/12/18 10/19/18 Rx lansoprazole 30 mg capsule,delayed 30 mg PO DAILY #90 cap 08/12/18 10/19/18 Rx release Allergies Allergy/AdvReac Type Severity Reaction Status Date / Time venom-honey bee Allergy Severe Unverified 10/19/18 14:39 Sulfa (Sulfonamide Allergy HIVES Unverified 10/19/18 14:39 Antibiotics) Results Labs : 10/19/18 14:20 10/19/18 19:35 Laboratory Results - last 24 hr 10/19/18 10/19/18 10/19/18 14:20 14:20 14:20 WBC 6.62 RBC 4.37 Hgb 13.2 Hct 37.5 MCV 85.8 MCH 30.2 MCHC 35.2 RDW 12.6 Plt Count 221 MPV 12.2 H Immature Gran % 0.2 Neutrophils % 53.4 Lymphocytes % 37.5 Monocytes % 7.9 Eosinophils % 0.8 Basophils % 0.2 Absolute Neutrophils 3.55 Absolute Lymphocytes 2.48 Absolute Monocytes 0.52 Absolute Eosinophils 0.05 Absolute Basophils 0.01 VBG pH VBG pCO2 VBG pO2 VBG HCO3 VBG Total CO2 VBG O2 Saturation VBG Base Excess Sodium 144 Cancelled Potassium 2.6 L* Cancelled Chloride 108 H Cancelled Carbon Dioxide 24.7 Cancelled Anion Gap 11.3 H Cancelled BUN 9 Cancelled Creatinine 0.94 Cancelled Estimated GFR/1.73 m2 >= 60.00 Cancelled Glucose 96 Cancelled Calcium 8.2 L Cancelled Magnesium 1.7 L Total Bilirubin 0.5 Cancelled Conjugated Bilirubin 0.12 AST 13 L Cancelled ALT 12 Cancelled Alkaline Phosphatase 82 Cancelled Creatine Kinase 106 Troponin I < 0.05 Total Protein 6.1 L Cancelled Albumin 3.1 L Cancelled Lipase 118 Urine Color Urine Clarity Urine pH Ur Specific [place] Urine Protein Urine Ketones Urine Blood Urine Nitrite Urine Bilirubin Urine Urobilinogen Ur Leukocyte Esterase Urine Glucose Urine Opiates Screen Urine Methadone Screen Ur Barbiturates Screen Ur Tricyclics Screen Ur Amphetamines Screen U Benzodiazepines Scrn Urine Cocaine Screen Ur THC Screen 10/19/18 10/19/18 10/19/18 14:20 14:30 14:51 WBC RBC Hgb Hct MCV MCH MCHC RDW Plt Count MPV Immature Gran % Neutrophils % Lymphocytes % Monocytes % Eosinophils % Basophils % Absolute Neutrophils Absolute Lymphocytes Absolute Monocytes Absolute Eosinophils Absolute Basophils VBG pH 7.44 H VBG pCO2 31 L VBG pO2 38 VBG HCO3 21 L VBG Total CO2 22 VBG O2 Saturation 75 VBG Base Excess -3.0 Sodium Potassium Chloride Carbon Dioxide Anion Gap BUN Creatinine Estimated GFR/1.73 m2 Glucose Calcium Magnesium Total Bilirubin Conjugated Bilirubin AST ALT Alkaline Phosphatase Creatine Kinase Cancelled Troponin I Total Protein Albumin Lipase Urine Color Yellow Urine Clarity Clear Urine pH 7.0 Ur Specific [place] 1.010 Urine Protein Negative Urine Ketones Negative Urine Blood Negative Urine Nitrite Negative Urine Bilirubin Negative Urine Urobilinogen 0.2 Ur Leukocyte Esterase Negative Urine Glucose Negative Urine Opiates Screen Urine Methadone Screen Ur Barbiturates Screen Ur Tricyclics Screen Ur Amphetamines Screen U Benzodiazepines Scrn Urine Cocaine Screen Ur THC Screen 10/19/18 10/19/18 10/19/18 14:51 15:40 19:35 WBC RBC Hgb Hct MCV MCH MCHC RDW Plt Count MPV Immature Gran % Neutrophils % Lymphocytes % Monocytes % Eosinophils % Basophils % Absolute Neutrophils Absolute Lymphocytes Absolute Monocytes Absolute Eosinophils Absolute Basophils VBG pH VBG pCO2 VBG pO2 VBG HCO3 VBG Total CO2 VBG O2 Saturation VBG Base Excess Sodium 145 Potassium 2.5 L* Chloride 109 H Carbon Dioxide 29.2 Anion Gap 6.8 BUN 8 Creatinine 0.88 Estimated GFR/1.73 m2 >= 60.00 Glucose 96 Calcium 8.6 Magnesium Total Bilirubin Conjugated Bilirubin AST ALT Alkaline Phosphatase Creatine Kinase Troponin I < 0.05 Total Protein Albumin Lipase Urine Color Urine Clarity Urine pH Ur Specific [place] Urine Protein Urine Ketones Urine Blood Urine Nitrite Urine Bilirubin Urine Urobilinogen Ur Leukocyte Esterase Urine Glucose Urine Opiates Screen Negative Urine Methadone Screen Negative Ur Barbiturates Screen Negative Ur Tricyclics Screen Negative Ur Amphetamines Screen Negative U Benzodiazepines Scrn Negative Urine Cocaine Screen Negative Ur THC Screen Negative 10/19/18 19:35 WBC RBC Hgb Hct MCV MCH MCHC RDW Plt Count MPV Immature Gran % Neutrophils % Lymphocytes % Monocytes % Eosinophils % Basophils % Absolute Neutrophils Absolute Lymphocytes Absolute Monocytes Absolute Eosinophils Absolute Basophils VBG pH VBG pCO2 VBG pO2 VBG HCO3 VBG Total CO2 VBG O2 Saturation VBG Base Excess Sodium Potassium 3.0 L Chloride Carbon Dioxide Anion Gap BUN Creatinine Estimated GFR/1.73 m2 Glucose Calcium Magnesium Total Bilirubin Conjugated Bilirubin AST ALT Alkaline Phosphatase Creatine Kinase Troponin I Total Protein Albumin Lipase Urine Color Urine Clarity Urine pH Ur Specific [place] Urine Protein Urine Ketones Urine Blood Urine Nitrite Urine Bilirubin Urine Urobilinogen Ur Leukocyte Esterase Urine Glucose Urine Opiates Screen Urine Methadone Screen Ur Barbiturates Screen Ur Tricyclics Screen Ur Amphetamines Screen U Benzodiazepines Scrn Urine Cocaine Screen Ur THC Screen Last Vital Signs Temp 37.5 C 10/19/18 13:50 Pulse 69 10/19/18 19:17 Resp 18 10/19/18 19:20 BP 108/62 10/19/18 19:17 Pulse Ox 97 10/19/18 19:20
--- NOTE | 2018-10-19 23:00 | HPE_ITS ---
Date of service: 10/19/18 Time of Service: 23:00 Assessment and Plan (1) Right lower quadrant abdominal pain: Current visit: Yes Status: Acute unclear as to the etiology of her abdominal pains. CT abdomen and pelvis taken w/ iv contrast then again w/ oral contrast did not show any appendicitis nor any other bowel pathology such as colitis or obstruction. She had been constipated but had a very loose BM while admitted to the ICU. It could just be bowel spasms/IBS her abdominal exam remains relatively benign i.e. no rebound tenderness nor guarding but she does localize to the RLQ. If her pain persists into the morning then I will have surgery take a look at her. I will repeat her labs in the morning including her CBC and get an ESR and CRP to see if there is some evidence for inflammation. I will also repeat her cmp. She is s/p hysterectomy so she should not have any endometrial problems but she still has her ovaries and this does not preclude ovarian cyst. No nephrolithiasis or hydroureter were seen on CT. (2) Hypokalemia: Current visit: Yes Status: Acute unclear source for her low potassium other than nutritional. she is not on any diuretics. Use of her albuterol can lower her potassium but doubt that it would drop below 3.0. (3) Hypomagnesemia: Current visit: Yes Status: Acute Her low magnesium can be explained by her use of PPI chronically. (4) Syncope: Current visit: Yes Status: Chronic most likely her low bp and her syncope was d/t dehydration caused by poor fluid intake in the setting of high temperatures today over 100. (5) Dehydration: Current visit: Yes Status: Acute she clearly was dehydrated and since her iv fluids she has felt better w/out further syncope or near syncope and no further hypotension. History of Present Illness Chief Complaint: I passed out Narrative: 43-year-old female with a past medical history significant for asthma, depression, GERD, degenerative disc disease and lumbosacral spine status post discectomy with chronic low back pain for which she regularly takes Advil. Patient works at [email or web address] where she was at work today going into work around 9 AM. She did not have time to eat anything before going into work. Her last meal was at 9 PM last night. 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 Upon arrival she was found to be hypotensive and required IV fluids. Upon arrival her pressure is low at 85/67 and 76/61. She was tachycardic with a heart rate up to 146 bpm. She was given IV fluids x2 L. Laboratory work-up revealed a normal CBC with no evidence of anemia or leukocytosis. Chemistry profile was significant for hypo-kalemia with a potassium of 2.5 and hypomagnesemia with a magnesium level of 1.7. She was given a 1 g bolus of magnesium sulfate and given 40 mg of potassium chloride int ravenously in the emergency room as well as 2 L of IV fluids. While in the emergency room she had another syncopal spell in which she allegedly had some shaking and confusion and the possibility of a seizure was raised by the nursing staff in the emergency room. The ER physician did not witness any tonic-clonic seizure activity. Patient is also complained of constipation and had not had a bowel movement since last Sunday and was complaining of right lower quadrant abdominal pain in the emergency room. This prompted a CT scan of the abdomen and pelvis which reportedly revealed a normal appendix. The rest of the findings were all benign with no abnormalities noted of the gallbladder or pancreas or spleen or adrenal glands and no obstruction of the bowels. There is no aneurysm and no enlarged pelvic or abdominal lymph nodes. There is an incidental right renal cyst a 3.2 cm but no nephrolithiasis or hydronephrosis. Patient is now admitted on observation status for further IV fluid replacement for dehydration and correction of her hypokalemia and hypomagnesemia. Her EKG demonstrates normal sinus rhythm at a rate of 72 bpm there is no acute ischemic ST or T wave changes. There is evidence of limb lead reversal as demonstrated by an extreme QRS axis of -158 degrees with the voltage being positive in aVR and negative in aVL and limb lead I. Her troponin level was negative. CT scan of her head showed no acute intracranial abnormality. Review of Systems Constitutional Denies chills, Reports excessive sweating, Denies fever(s), Denies headache(s) and Denies poor appetite Eyes Reports system reviewed and no additional complaints, except as docu ENT Reports system reviewed and no additional complaints, except as docu and Denies headache(s) Cardiovascular Denies chest pain, Reports syncope, Reports lightheadedness, Denies palpitations and Reports dyspnea Respiratory Reports dyspnea Gastrointestinal Reports abdominal pain (RLQ) Genitourinary Reports system reviewed and no additional complaints, except as docu Musculoskeletal Reports back pain Integumentary/Breasts Reports system reviewed and no additional complaints, except as docu Neurologic Reports system reviewed and no additional complaints, except as docu, Reports syncope and Denies headache(s) Psychiatric Reports system reviewed and no additional complaints, except as docu Endocrine Reports system reviewed and no additional complaints, except as docu, Reports excessive sweating and Denies palpitations Hematologic/Lymphatic Reports system reviewed and no additional complaints, except as docu Allergic/Immunologic Reports system reviewed and no additional complaints, except as docu PFSH Medical History Back pain (Resolved) TAMARA II (cervical intraepithelial neoplasia II) (Resolved 02/07/16) High ankle sprain of right lower extremity (Resolved) Tobacco use (Resolved 10/15/14) Surgical History ANAL SURGERY Dilation and curettage discectomy (~2003) Endometrial Ablation (~2009) Ligation of fallopian tube S/P endometrial ablation (Resolved) Family History Mother Hyperlipidemia Thyroid disorder Father Essential hypertension Diabetes Personal history of malignant neoplasm Heart disease Hyperlipidemia Myocardial infarction Social History Smoking/Tobacco Use Status: Former Tobacco Use Alcohol Intake: never Drug use: Never Do you feel safe in your relationship?: Yes Meds Home Medications Medication Instructions Recorded Confirmed Type albuterol sulfate 90 mcg/actuation 2 puff IH Q6H PRN 12/05/17 10/19/18 History aerosol inhaler epinephrine 0.3 mg/0.3 mL 0.3 mg IM ONCE #1 each 12/05/17 10/19/18 Rx injection, auto-injector meclizine 25 mg tablet 25 mg PO TID PRN #30 tab 04/23/18 10/19/18 Rx sumatriptan succinate 50 mg tablet 50 mg PO PRN #30 tab MDD 100mg 04/23/18 10/19/18 Rx cetirizine 10 mg tablet 10 mg PO DAILY #90 tab 08/12/18 10/19/18 Rx fluoxetine 20 mg capsule 20 mg PO DAILY #90 cap 08/12/18 10/19/18 Rx lansoprazole 30 mg capsule,delayed 30 mg PO DAILY #90 cap 08/12/18 10/19/18 Rx release Allergies Allergy/AdvReac Type Severity Reaction Status Date / Time venom-honey bee Allergy Severe Unverified 10/19/18 14:39 Sulfa (Sulfonamide Allergy HIVES Unverified 10/19/18 14:39 Antibiotics) Exam Const General: cooperative, healthy appearing, comfortable and no acute distress Nutritional Appearance: average body habitus and well nourished Orientation: alert, awake and oriented x3 HENMT Head: normal to inspection, no palpable skull fracture, normocephalic and atraumatic Ears: hearing grossly normal bilaterally Face and sinus: normal facial exam Mouth: oral mucosae normal, lip normal, tongue normal, oropharynx normal and moist mucous membranes Teeth and gingiva: edentulous Throat: posterior oropharynx normal Eyes General: appearance normal, both eyes and all related structures Visual Velez: normal visual velez by confrontation Alignment and Position: alignment normal Periorbital: periorbital findings normal Eyelids: eyelids normal Conjunctivae: conjunctivae normal Sclera: sclerae normal Cornea: corneas normal Pupils: PERRL, normal by confrontation and accommodation normal EOM: EOM intact bilaterally Neck Neck: normal visual inspection, full ROM, no lymphadenopathy, no meningeal signs, trachea midline, supple and no JVD Lymphatic: other (iv present in left jugular vein) Resp Effort & Inspection: normal respiratory effort and able to speak in complete sentences Auscultation: clear to auscultation bilaterally Cardio Jugular venous pressure: no JVD Palpation: normal PMI Rate: regular rate Rhythm: regular rhythm Heart Sounds: S1 normal, S2 normal, normal, physiologic split S2, no gallops, no murmurs and no rubs Pulses: normal peripheral pulses GI Inspection: normal to inspection Palpation: soft, no hepatosplenomegaly, no aortic enlargement, no guarding and tender in the RLQ and at McBurney's point Percussion: normal to percussion Skin General skin exam: no rashes or lesions noted Neuro General: alert, awake, oriented x3, moves all extremities and no focal motor deficits Cranial Nerves: PERRL, accommodation normal, EOM intact bilaterally, no nystagmus, facial strength normal, tongue midline, gag reflex normal, hearing normal, able to rotate head bilaterally, able to elevate shoulders bilaterally and Symmetric palate elevation Cognition: normal cognition Speech: speech normal Motor: muscle tone normal throughout and no movement abnormalities noted Sensory Exam: no sensory deficits noted Extrem General: normal to inspection, full ROM, normal capillary refill, no joint enlargement, no clubbing, cyanosis or edema, no pedal edema and no calf tender ness Psych Appearance: grossly normal Mental Status: mental status grossly normal Speech and Movement: speech and movement normal Mood: congruent mood Affect: normal affect Attitude: cooperative Thought Process: normal Thought Content: normal Insight: insight good Judgment: judgment good Results Labs : 10/19/18 14:20 10/19/18 19:35 Laboratory Results - last 24 hr 10/19/18 10/19/18 10/19/18 14:20 14:20 14:20 WBC 6.62 RBC 4.37 Hgb 13.2 Hct 37.5 MCV 85.8 MCH 30.2 MCHC 35.2 RDW 12.6 Plt Count 221 MPV 12.2 H Immature Gran % 0.2 Neutrophils % 53.4 Lymphocytes % 37.5 Monocytes % 7.9 Eosinophils % 0.8 Basophils % 0.2 Absolute Neutrophils 3.55 Absolute Lymphocytes 2.48 Absolute Monocytes 0.52 Absolute Eosinophils 0.05 Absolute Basophils 0.01 VBG pH VBG pCO2 VBG pO2 VBG HCO3 VBG Total CO2 VBG O2 Saturation VBG Base Excess Sodium 144 Cancelled Potassium 2.6 L* Cancelled Chloride 108 H Cancelled Carbon Dioxide 24.7 Cancelled Anion Gap 11.3 H Cancelled BUN 9 Cancelled Creatinine 0.94 Cancelled Estimated GFR/1.73 m2 >= 60.00 Cancelled Glucose 96 Cancelled Calcium 8.2 L Cancelled Magnesium 1.7 L Total Bilirubin 0.5 Cancelled Conjugated Bilirubin 0.12 AST 13 L Cancelled ALT 12 Cancelled Alkaline Phosphatase 82 Cancelled Creatine Kinase 106 Troponin I < 0.05 Total Protein 6.1 L Cancelled Albumin 3.1 L Cancelled Lipase 118 Urine Color Urine Clarity Urine pH Ur Specific [place] Urine Protein Urine Ketones Urine Blood Urine Nitrite Urine Bilirubin Urine Urobilinogen Ur Leukocyte Esterase Urine Glucose Urine Opiates Screen Urine Methadone Screen Ur Barbiturates Screen Ur Tricyclics Screen Ur Amphetamines Screen U Benzodiazepines Scrn Urine Cocaine Screen Ur THC Screen 10/19/18 10/19/18 10/19/18 14:20 14:30 14:51 WBC RBC Hgb Hct MCV MCH MCHC RDW Plt Count MPV Immature Gran % Neutrophils % Lymphocytes % Monocytes % Eosinophils % Basophils % Absolute Neutrophils Absolute Lymphocytes Absolute Monocytes Absolute Eosinophils Absolute Basophils VBG pH 7.44 H VBG pCO2 31 L VBG pO2 38 VBG HCO3 21 L VBG Total CO2 22 VBG O2 Saturation 75 VBG Base Excess -3.0 Sodium Potassium Chloride Carbon Dioxide Anion Gap BUN Creatinine Estimated GFR/1.73 m2 Glucose Calcium Magnesium Total Bilirubin Conjugated Bilirubin AST ALT Alkaline Phosphatase Creatine Kinase Cancelled Troponin I Total Protein Albumin Lipase Urine Color Yellow Urine Clarity Clear Urine pH 7.0 Ur Specific [place] 1.010 Urine Protein Negative Urine Ketones Negative Urine Blood Negative Urine Nitrite Negative Urine Bilirubin Negative Urine Urobilinogen 0.2 Ur Leukocyte Esterase Negative Urine Glucose Negative Urine Opiates Screen Urine Methadone Screen Ur Barbiturates Screen Ur Tricyclics Screen Ur Amphetamines Screen U Benzodiazepines Scrn Urine Cocaine Screen Ur THC Screen 10/19/18 10/19/18 10/19/18 14:51 15:40 19:35 WBC RBC Hgb Hct MCV MCH MCHC RDW Plt Count MPV Immature Gran % Neutrophils % Lymphocytes % Monocytes % Eosinophils % Basophils % Absolute Neutrophils Absolute Lymphocytes Absolute Monocytes Absolute Eosinophils Absolute Basophils VBG pH VBG pCO2 VBG pO2 VBG HCO3 VBG Total CO2 VBG O2 Saturation VBG Base Excess Sodium 145 Potassium 2.5 L* Chloride 109 H Carbon Dioxide 29.2 Anion Gap 6.8 BUN 8 Creatinine 0.88 Estimated GFR/1.73 m2 >= 60.00 Glucose 96 Calcium 8.6 Magnesium Total Bilirubin Conjugated Bilirubin AST ALT Alkaline Phosphatase Creatine Kinase Troponin I < 0.05 Total Protein Albumin Lipase Urine Color Urine Clarity Urine pH Ur Specific [place] Urine Protein Urine Ketones Urine Blood Urine Nitrite Urine Bilirubin Urine Urobilinogen Ur Leukocyte Esterase Urine Glucose Urine Opiates Screen Negative Urine Methadone Screen Negative Ur Barbiturates Screen Negative Ur Tricyclics Screen Negative Ur Amphetamines Screen Negative U Benzodiazepines Scrn Negative Urine Cocaine Screen Negative Ur THC Screen Negative 10/19/18 19:35 WBC RBC Hgb Hct MCV MCH MCHC RDW Plt Count MPV Immature Gran % Neutrophils % Lymphocytes % Monocytes % Eosinophils % Basophils % Absolute Neutrophils Absolute Lymphocytes Absolute Monocytes Absolute Eosinophils Absolute Basophils VBG pH VBG pCO2 VBG pO2 VBG HCO3 VBG Total CO2 VBG O2 Saturation VBG Base Excess Sodium Potassium 3.0 L Chloride Carbon Dioxide Anion Gap BUN Creatinine Estimated GFR/1.73 m2 Glucose Calcium Magnesium Total Bilirubin Conjugated Bilirubin AST ALT Alkaline Phosphatase Creatine Kinase Troponin I Total Protein Albumin Lipase Urine Color Urine Clarity Urine pH Ur Specific [place] Urine Protein Urine Ketones Urine Blood Urine Nitrite Urine Bilirubin Urine Urobilinogen Ur Leukocyte Esterase Urine Glucose Urine Opiates Screen Urine Methadone Screen Ur Barbiturates Screen Ur Tricyclics Screen Ur Amphetamines Screen U Benzodiazepines Scrn Urine Cocaine Screen Ur THC Screen Last Vital Signs Temp 36.5 C 10/19/18 21:27 Pulse 69 10/19/18 19:17 Resp 18 10/19/18 19:20 BP 118/63 10/19/18 21:27 Pulse Ox 97 10/19/18 19:20
[2018-10-19] MEDS: POTASSIUM CHLORIDE/D5-0.45NACL 1,000 ML 100 MEQ IV (23:04)
[2018-10-19] MEDS: MAGNESIUM SULFATE 2 GM/50 ML BAG IVPB (23:06)
[2018-10-19] MEDS: Potassium Chloride 20 MEQ TABCR 40 MEQ PO (23:34)
[2018-10-19] MEDS: FLUoxetine 20 MG CAP PO (23:35)
[2018-10-19] MEDS: Cetirizine 10 MG TAB PO (23:36)
[2018-10-19 23:50] LABS: Potassium 2.9 mmol/L (3.5-5.1); Troponin I < 0.05 ng/mL (0.00-0.06)
[2018-10-20] VITALS (67 sets, daily range): BP systolic 85–121; BP diastolic 26–82; PULSE 45–89; RESP 11–26; TEMP 36.6–36.8; O2SAT 96–100
[2018-10-20] MEDS: Acetaminophen 325 MG TAB PO (00:08)
[2018-10-20] MEDS: Normal Saline Flush 10 ML SYR IVP ×2 (00:52→13:54)
[2018-10-20] MEDS: POTASSIUM CHLORIDE 20 MEQ/100 ML BAG 50 MEQ IVPB ×2 (01:47→04:00)
[2018-10-20 07:55] LABS: Abs Immature Grans 0.01 k/cumm (0.0-0.09); Absolute Basophil Count 0.01 k/cumm (0.0-0.2); Absolute Eosinophil Count 0.06 k/cumm (0.0-0.7); Absolute Lymphocyte Count 1.87 k/cumm (1.2-3.4); Absolute Monocyte Count 0.44 k/cumm (0.11-0.7); Absolute Neutrophil Count 3.26 k/cumm (1.2-6.7); Basophils % 0.2; Eosinophils % 1.1; HCT 35.2 % (36.0-46.0); HGB 11.9 g/dL (12.0-15.5); Immature Grans % 0.2; Lymphocytes % 33.1; Mean Corp. HGB Concentration 33.8 g/dL (32.0-36.0); Mean Corpuscular Hemoglobin 30.1 pg (27.0-33.0); Mean Corpuscular Volume 89.1 fL (80-95); Mean Platelet Volume 12.5 fL (8.0-11.0); Monocytes % 7.8; Neutrophils % 57.6; Platelet Count 191 x1000/uL (130-400); RBC 3.95 m/cumm (4.00-5.20); RBC Distribution Width 13.1 % (11.7-14.6); White Blood Cell Count 5.65 k/cumm (4.4-10.8)
[2018-10-20 08:10] LABS: ALT 11 U/L (12-78); AST 11 U/L (15-37); Albumin 2.9 g/dL (3.4-5.0); Alkaline Phosphatase 82 U/L (46-116); Anion Gap 7.6 mmol/L (3-11); BUN 8 mg/dL (7-18); Bilirubin, Total 0.4 mg/dL (0.2-1.0); CO2 25.4 mmol/L (21.0-32.0); CREATININE 0.76 mg/dL (0.55-1.02); Calcium 8.3 mg/dL (8.5-10.1); Chloride 108 mmol/L (98-107); Glucose 114 mg/dL (70-100); Sodium 141 mmol/L (136-145); Total Protein 5.8 g/dL (6.4-8.2)
[2018-10-20 08:17] LABS: C-Reactive Protein 0.35 mg/dL (0.0-0.3); Magnesium 2.5 mg/dL (1.8-2.4); TSH (W/Ref FT4) 2.94 uIU/mL (0.358-3.74)
[2018-10-20 08:38] LABS: ESR 15 mm/hr (0-20)
[2018-10-20] MEDS: Normal Saline 1,000 ML 200 ML IV ×2 (09:52→15:10)
[2018-10-20] MEDS: Potassium Chloride 20 MEQ TABCR PO ×3 (09:53→20:29)
[2018-10-20] MEDS: Magnesium Gluconate 500 MG TAB PO ×2 (09:53→20:29)
[2018-10-20 13:15] LABS: Troponin I < 0.05 ng/mL (0.00-0.06)
--- NOTE | 2018-10-20 13:51 | PDOC.CMIN ---
Care Management Initial Assess REASON FOR HOSPITALIZATION:: Hypokalemia, syncope, dehydration PAST MEDICAL HISTORY/PAST SURGICAL HISTORY:: Medical: Back pain (Resolved), TAMARA II (cervical intraepithelial neoplasia II) (Resolved 02/07/16), High ankle sprain of right lower extremity (Resolved),. Tobacco use (Resolved 10/15/14). Surgical: ANAL SURGERY, Dilation and curettage discectomy (~2003), Endometrial Ablation (~2009), Ligation of fallopian tube, S/P endometrial ablation (Resolved) PREVIOUS FUNCTIONAL STATUS/SOCIAL/FAMILY SUPPORTS:: Lives with her , Kyle, in [facility] at [facility]. Janessa is working 2 jobs ([employer] and [employer]) and caring for her mother. Kyle is on Disability. One son who is 17 y.o. is still at home. She seems to be the support person for everyone else in her life at this time. CURRENT FUNCTIONAL STATUS:: Lying in bed. States that she is still dizzy and this has been going on since yesterday. ADVANCE DIRECTIVES:: None on file Has patient been provided with information about the portal?: No Did the patient sign up for the portal?: No CODE STATUS:: Full Code INSURANCE COVERAGE / FINANCIAL ISSUES:: Medicaid CURRENT HOME/COMMUNITY SERVICES/EQUIPMENT:: None at this time PRIMARY CARE PHYSICIAN:: Sarah Beltrán MD POTENTIAL DISCHARGE NEEDS:: None identified PATIENT/FAMILY EDUCATION NEEDS:: Limitations and importance of self-care, discharge instructions ANTICIPATED BARRIERS TO DISCHARGE:: None identified TRANSPORTATION:: Family will transport PLAN:: Return home when medically cleared for discharge. No services needed. Brother will transport by car.
[2018-10-20] MEDS: Ondansetron 4 MG/2 ML VIAL IVP (13:54)
--- NOTE | 2018-10-20 14:37 | PHARADMIT ---
Admission Pharmacy Clinical Review Hypokalemia, Syncope, Dehydration Code Status Full Code Current Weight Wgt-81.3 kg Renally Cleared and Narrow Therapeutic Index Meds CrCl~77.5 mL/min Meds-OK QTc Value / Action Taken QTc-432 na BP Control, Fever BP- 114/63 Tmax-36.5C Electrolytes reviewed Na-141 K+4.0(was 2.5) Mag-2.5 DVT Prophylaxis TEDS, SCDs Opiate Usage / Scheduled Bowel Regimen Ordered No Registered Travel Nurse Plt/SCr for Heparin / Enoxaparin Plts-191 SCr-0.76 INR for Warfarin na H/H stable, WBC/Bands H&H- 11.9/35.2 WBC- 5.65 Antibiotic appropriateness none Cultures and Sensitivities none Surgical ABX d/c within 24 hr na DM control / Insulin Dosing BG-114 Heart Failure (Check EF%) (WENDY's, B-Block, Diuretics) none IV to PO Switch No Home Meds Reviewed Yes Home Meds Not Ordered EpiPen, Previcid, Meclizine, Imitrex Comments
--- NOTE | 2018-10-20 16:38 | W.PM.PROGNOT ---
Date of Service Date of service: 10/20/18 Time of Service: 16:38 Assessment and Plan (1) Near syncope: Current visit: Yes Status: Acute Initially thought secondary to dehydration, patient continues to be hypotensive and dizzy despite aggressive IVF resuscitation. She is also inappropriately Bradycardic. - EKG Repeated, with QWaves in V1 & V2 that appear essentially unchanged since admission, but with Q in V2 appearing new since 2018. Has had negative serial cardiac biomarkers - repeat troponin now. - Patient will benefit from ECHO and ETT. Orthostatic vitals also checked and with appropriate rise in HR and without drop in blood pressure. Case was discussed with cardiology at [facility] - plans is appropriate, and pending results or if patient decompensates they will accept her in transfer. Will await results of above. (2) Bradycardia: Current visit: Yes Status: Acute No clear etiology for patient's low HR. Prior values in the 60-80's mostly going back to 2016. Patient without any obvious offending agents by med review and not on mateo agents, with a normal TSH, negative troponin, and no evidence of infection. Patient also without evidence of tick born illness - no leukopenia, thrombocytopenia, or raised LFTs. Will plan for ECHO and ETT, and reevaluate. (3) Right lower quadrant abdominal pain: Current visit: Yes Status: Acute CT without pathology - Appendicitis ruled out. (4) Depression: Current visit: No Status: Chronic Currently on fluoxetine. (5) Gastroesophageal reflux disease: Current visit: No Status: Chronic Continue PPI therapy. (6) DVT prophylaxis: Current visit: Yes Status: Acute SC Lovenox. Subjective Interval history since last seen: 43-year-old woman with a prior history significant for Asthma, admitted from [facility] Emergency Department with a diagnosis of Near Syncope. Ms. Covarrubias has a Past Medical History significant for Asthma, GERD, DDD, Depression, and chronic LBP. She is an employee at the [employer] - reportedly went to work while skipping breakfast on the morning of her admission, and felt lightheaded and diaphoretic on an already hot day. She then experienced a near syncopal episode. She reports multiple people who had called out sick at work, one of whom had reported GI symptoms. Upon presentation to the ED she was found to be hypotensive, tachycardic, hypokalemic, and hypomagnesemic. She did not have a fever or leukocytosis, and her imaging was negative for infection. She was however noted shortly after presentation to have a 'shaking spell', along with witnessed confusion - remained arousable and rapidly oriented. She also complained of RLQ pain. Imaging included a normal CT Head, and CT a/p with contrast ruled out acute appendicitis. Her EKG was non-schemic, and her troponin negative. She was admitted with a diagnosis of near syncope in the setting of dehydration. Following admission the patient was aggressively hydrated. However, she remains dizzy, hypotensive, and bradycardic. A repeat EKG showed evidence of QWaves in V1 that appears old, but new in V2, otherwise without significant abnormality. No other events reported. Remains afebrile. Exam Narrative Exam Narrative: General: Patient appears comfortable, not acutely ill, AAOX3, NAD Neck: Supple CV: Regular, mildly bradycardic, S1S2, No rubs, murmurs, or gallops. Pulmonary: Clear to auscultation bilaterally, no crackles, wheezing, or rhonchi Abdomen: + Bowel Sounds, soft, nontender, nondistended Vascular: No lower extremity edema Psych: Normal mood and affect. Objective Objective Clinical Data: Abnormal lab results 10/19/18 10/19/18 10/20/18 Range/Units 19:35 23:08 06:50 RBC (4.00-5.20) m/cumm Hgb (12.0-15.5) g/dL Hct (36.0-46.0) % MPV (8.0-11.0) fL Potassium 3.0 L 2.9 L* (3.5-5.1) mmol/L Chloride (98-107) mmol/L Glucose (70-100) mg/dL Calcium (8.5-10.1) mg/dL Magnesium 2.5 H (1.8-2.4) mg/dL AST (15-37) U/L ALT (12-78) U/L C-Reactive Protein 0.35 H (0.0-0.3) mg/dL Total Protein (6.4-8.2) g/dL Albumin (3.4-5.0) g/dL 10/20/18 10/20/18 Range/Units 06:50 06:50 RBC 3.95 L (4.00-5.20) m/cumm Hgb 11.9 L (12.0-15.5) g/dL Hct 35.2 L (36.0-46.0) % MPV 12.5 H (8.0-11.0) fL Potassium (3.5-5.1) mmol/L Chloride 108 H (98-107) mmol/L Glucose 114 H (70-100) mg/dL Calcium 8.3 L (8.5-10.1) mg/dL Magnesium (1.8-2.4) mg/dL AST 11 L (15-37) U/L ALT 11 L (12-78) U/L C-Reactive Protein (0.0-0.3) mg/dL Total Protein 5.8 L (6.4-8.2) g/dL Albumin 2.9 L (3.4-5.0) g/dL Vital Signs Temperature 36.5 C 10/19/18 21:27 Temperature Source Temporal Artery Scan 10/19/18 21:27 Pulse 52 L 10/20/18 15:30 Pulse Rhythm Regular 10/20/18 08:00 Pulse 51 L 10/20/18 15:30 Respiratory Rate 13 10/20/18 15:30 Respiratory Effort Non-Labored 10/20/18 08:00 Respiratory Depth Normal 10/20/18 08:00 Respiratory Pattern Normal 10/20/18 08:00 Blood Pressure 87/53 L 10/20/18 15:30 Blood Pressure Mean 62 10/20/18 15:30 Pulse Oximetry 98 10/20/18 15:30 Oxygen Delivery Method Room Air 10/19/18 21:27 Oxygen Flow Rate 0 10/19/18 21:27 Pain Level 3 10/20/18 00:08 Comment 10/20/18 13:05 Intake & Output 10/19/18 10/20/18 10/20/18 23:59 11:59 23:59 Intake Total 3100 / 3100 970 / 970 Output Total 1600 / 2160 560 / 2160 Balance 3100 / 3100 -630 / -1190 -560 / -1190 Weight 78.3 kg 81.3 kg Intake: IV 3100 / 3100 250 / 250 Oral 720 / 720 Output: Urine 1600 / 1900 300 / 1900 Stool 260 / 260 Other: Urine Color Yellow Yellow Urine Appearance Clear Urine Odor Normal Normal Comment Mixed with stool. Mixed with stool. Stool Size Small Small Stool Characteristics Soft Soft Brown Brown Voiding Methods Bedside Commode Laboratory Results WBC 5.65 k/cumm (4.4-10.8) 10/20/18 06:50 RBC 3.95 m/cumm (4.00-5.20) L 10/20/18 06:50 Hgb 11.9 g/dL (12.0-15.5) L 10/20/18 06:50 Hct 35.2 % (36.0-46.0) L 10/20/18 06:50 MCV 89.1 fL (80-95) D 10/20/18 06:50 MCH 30.1 pg (27.0-33.0) 10/20/18 06:50 MCHC 33.8 g/dL (32.0-36.0) 10/20/18 06:50 RDW 13.1 % (11.7-14.6) 10/20/18 06:50 Plt Count 191 x1000/uL (130-400) 10/20/18 06:50 MPV 12.5 fL (8.0-11.0) H 10/20/18 06:50 Immature Gran % 0.2 10/20/18 06:50 57.6 10/20/18 06:50 33.1 10/20/18 06:50 7.8 10/20/18 06:50 1.1 10/20/18 06:50 0.2 10/20/18 06:50 Absolute Neutrophils 3.26 k/cumm (1.2-6.7) 10/20/18 06:50 Absolute Lymphocytes 1.87 k/cumm (1.2-3.4) 10/20/18 06:50 Absolute Monocytes 0.44 k/cumm (0.11-0.7) 10/20/18 06:50 Absolute Eosinophils 0.06 k/cumm (0.0-0.7) 10/20/18 06:50 Absolute Basophils 0.01 k/cumm (0.0-0.2) 10/20/18 06:50 ESR 15 mm/hr (0-20) 10/20/18 06:50 VBG pH 7.44 (7.32-7.43) H 10/19/18 14:30 VBG pCO2 31 mm/Hg (34-47) L 10/19/18 14:30 VBG pO2 38 mm/Hg (28-44) 10/19/18 14:30 VBG HCO3 21 mmol/L (22-28) L 10/19/18 14:30 VBG Total CO2 22 mmol/L (22-29) 10/19/18 14:30 VBG O2 Saturation 75 % (70-80) 10/19/18 14:30 VBG Base Excess -3.0 mmol/L (-3-3) 10/19/18 14:30 Sodium 141 mmol/L (136-145) 10/20/18 06:50 Potassium 4.0 mmol/L (3.5-5.1) D 10/20/18 06:50 Chloride 108 mmol/L (98-107) H 10/20/18 06:50 Carbon Dioxide 25.4 mmol/L (21.0-32.0) 10/20/18 06:50 7.6 mmol/L (3-11) 10/20/18 06:50 BUN 8 mg/dL (7-18) 10/20/18 06:50 0.76 mg/dL (0.55-1.02) 10/20/18 06:50 >= 60.00 (mL/min/1.73m2) 10/20/18 06:50 Glucose 114 mg/dL (70-100) H 10/20/18 06:50 Calcium 8.3 mg/dL (8.5-10.1) L 10/20/18 06:50 Magnesium 2.5 mg/dL (1.8-2.4) H 10/20/18 06:50 0.4 mg/dL (0.2-1.0) 10/20/18 06:50 0.12 mg/dL (0.00-0.20) 10/19/18 14:20 AST 11 U/L (15-37) L 10/20/18 06:50 ALT 11 U/L (12-78) L 10/20/18 06:50 82 U/L (46-116) 10/20/18 06:50 106 U/L (26-192) 10/19/18 14:20 Cancelled 10/19/18 14:20 < 0.05 ng/mL (0.00-0.06) 10/20/18 06:50 0.35 mg/dL (0.0-0.3) H 10/20/18 06:50 5.8 g/dL (6.4-8.2) L 10/20/18 06:50 2.9 g/dL (3.4-5.0) L 10/20/18 06:50 118 U/L (73-393) 10/19/18 14:20 TSH 2.94 uIU/mL (0.358-3.74) 10/20/18 06:50 Yellow (Yellow) 10/19/18 14:51 Clear (Clear) 10/19/18 14:51 7.0 (5-8) 10/19/18 14:51 Ur Specific [place] 1.010 (1.005-1.025) 10/19/18 14:51 Negative mg/dL (Negative) 10/19/18 14:51 Negative mg/dL (Negative) 10/19/18 14:51 Negative (Negative) 10/19/18 14:51 Negative (Negative) 10/19/18 14:51 Negative (Negative) 10/19/18 14:51 0.2 EU/dL (Up TO 0.2) 10/19/18 14:51 Ur Leukocyte Esterase Negative (Negative) 10/19/18 14:51 Negative mg/dL (Negative) 10/19/18 14:51 Negative (Negative) 10/19/18 14:51 Negative (Negative) 10/19/18 14:51 Ur Barbiturates Screen Negative (Negative) 10/19/18 14:51 Ur Tricyclics Screen Negative (Negative) 10/19/18 14:51 Ur Amphetamines Screen Negative (Negative) 10/19/18 14:51 U Benzodiazepines Scrn Negative (Negative) 10/19/18 14:51 Negative (Negative) 10/19/18 14:51 Ur THC Screen Negative (Negative) 10/19/18 14:51
[2018-10-20 18:22] LABS: Troponin I < 0.05 ng/mL (0.00-0.06)
[2018-10-20] MEDS: FLUoxetine 20 MG CAP PO (20:28)
[2018-10-20] MEDS: Cetirizine 10 MG TAB PO (20:28)
[2018-10-20] MEDS: Normal Saline 1,000 ML 125 ML IV (20:29)
[2018-10-21] VITALS (24 sets, daily range): BP systolic 91–134; BP diastolic 54–90; PULSE 48–89; RESP 11–26; TEMP 36.5–37.5; O2SAT 96–98
[2018-10-21] MEDS: Acetaminophen 325 MG TAB PO (00:23)
[2018-10-21] MEDS: Normal Saline 1,000 ML 125 ML IV ×2 (04:56→15:35)
[2018-10-21 08:05] LABS: Abs Immature Grans 0.01 k/cumm (0.0-0.09); Absolute Basophil Count 0.02 k/cumm (0.0-0.2); Absolute Lymphocyte Count 2.21 k/cumm (1.2-3.4); Absolute Neutrophil Count 3.38 k/cumm (1.2-6.7); Basophils % 0.3; Eosinophils % 1.6; HCT 38.2 % (36.0-46.0); HGB 12.6 g/dL (12.0-15.5); Immature Grans % 0.2; Lymphocytes % 36.1; Mean Corpuscular Hemoglobin 29.9 pg (27.0-33.0); Mean Corpuscular Volume 90.7 fL (80-95); Mean Platelet Volume 12.7 fL (8.0-11.0); Monocytes % 6.5; Neutrophils % 55.3; Platelet Count 179 x1000/uL (130-400); RBC 4.21 m/cumm (4.00-5.20); RBC Distribution Width 13.2 % (11.7-14.6); White Blood Cell Count 6.12 k/cumm (4.4-10.8)
[2018-10-21 08:22] LABS: Anion Gap 7.8 mmol/L (3-11); BUN 7 mg/dL (7-18); CO2 23.2 mmol/L (21.0-32.0); CREATININE 0.76 mg/dL (0.55-1.02); Calcium 8.6 mg/dL (8.5-10.1); Chloride 112 mmol/L (98-107); Glucose 95 mg/dL (70-100); Magnesium 2.1 mg/dL (1.8-2.4); Potassium 4.4 mmol/L (3.5-5.1); Sodium 143 mmol/L (136-145)
[2018-10-21] MEDS: Magnesium Gluconate 500 MG TAB PO ×2 (09:31→20:23)
[2018-10-21] MEDS: Potassium Chloride 20 MEQ TABCR PO ×3 (09:31→20:24)
[2018-10-21] MEDS: Lansoprazole 30 MG CAPCR PO (09:32)
[2018-10-21] MEDS: Enoxaparin 40 MG/0.4 ML SYR SC (09:32)
--- NOTE | 2018-10-21 09:49 | MERGE_ITS ---
*[facility]* *[facility]* [address] [place] [address] Date of study: 10/21/2018 Transthoracic Echocardiography M-mode, complete 2D, complete spectral Doppler, and color Doppler *STUDY CONCLUSIONS* Summary: 1. Left ventricle: The cavity size was normal. Systolic function was normal. The estimated ejection fraction was 60-65%. Diastolic parameters were normal. There was no evidence of elevated ventricular filling pressure by Doppler parameters. 2. Mitral valve: There was mild to moderate regurgitation. 3. Right ventricle: The cavity size was mildly dilated. Systolic function was normal. 4. Atrial septum: No defect or patent foramen ovale was identified. 5. Pulmonary arteries: Pulmonary systolic pressure was in the range of 25mm Hg to 35mm Hg. 6. Inferior vena cava: The vessel was normal in size. The respirophasic diameter changes were in the normal range (greater than or equal to 50%), consistent with normal central venous pressure. *PATIENT PRESENTATION* Height: 162.6cm (64in ) S/D Pressure: 102 / 57 Weight: 81.2kg (178.6lb ) BSA: 1.94m^2 Test start time: 09:45 AM. Test stop time: 10:25 AM. PERFORMING Unknown CONSULTING Lino Gonsales ORDERING Lino Gonsales REFERRING Lino Gonsales PERFORMING [facility] [employer] Tasha García *PROCEDURE DATA* Procedure information: This study was interpreted by [facility]. Pertinent images and digital data are archived for permanent storage and are available for subsequent review. No prior study was available for comparison. Study status: Routine. Transthoracic echocardiography. M-mode, complete 2D, complete spectral Doppler, and color Doppler. A Transthoracic Echocardiogram was performed. Scanning was performed from the parasternal, apical, subcostal, and suprasternal notch acoustic windows. Images were obtained using an [employer] 2000 cardiac ultrasound machine. Image quality was adequate. Study completion: The patient tolerated the procedure well. History: PMH: Bradycardia. *CARDIAC ANATOMY* Left ventricle: The cavity size was normal. Systolic function was normal. The estimated ejection fraction was 60-65%. The tissue Doppler parameters were normal. Diastolic parameters were normal. There was no evidence of elevated ventricular filling pressure by Doppler parameters. Aortic valve: Probably trileaflet. Doppler: There was no stenosis. There was no regurgitation. VTI ratio of LVOT to aortic valve: 0.66. Valve area (VTI): 1.9cm^2. Indexed valve area (VTI): 1cm^2/m^2. Peak velocity ratio of LVOT to aortic valve: 0.58. Valve area (Vmax): 1.7cm^2. Indexed valve area (Vmax): 0.9cm^2/m^2. Mean velocity ratio of LVOT to aortic valve: 0.6. Valve area (Vmean): 1.7cm^2. Indexed valve area (Vmean): 0.9cm^2/m^2. Mean gradient (S): 6.8mm Hg. Peak gradient (S): 14.2mm Hg. Aorta: Aortic root: The aortic root was normal in size. Ascending aorta: The ascending aorta was normal in size. Mitral valve: Doppler: There was no evidence for stenosis. There was mild to moderate regurgitation. Valve area by pressure half-time: 4.6cm^2. Indexed valve area by pressure half-time: 2.4cm^2/m^2. Peak gradient (D): 4.7mm Hg. Left atrium: The atrium was normal in size. Atrial septum: No defect or patent foramen ovale was identified. Right ventricle: The cavity size was mildly dilated. Systolic function was normal. Pulmonic valve: Doppler: There was no evidence for stenosis. There was no significant regurgitation. Peak gradient (S): 4.4mm Hg. Tricuspid valve: Doppler: There was mild regurgitation. Pulmonary artery: Poorly visualized. Pulmonary systolic pressure was in the range of 25mm Hg to 35mm Hg. Right atrium: The atrium was normal in size. Pericardium: There was no significant pericardial effusion. Systemic veins: Inferior vena cava: The vessel was normal in size. The respirophasic diameter changes were in the normal range (greater than or equal to 50%), consistent with normal central venous pressure. Measurements Left ventricle Value Reference LV ID, ED, PLAX 4.7 cm 3.5 - 6.0 LV ID, ES, PLAX 3.0 cm 2.1 - 4.0 LV PW thickness, ED, PLAX 0.8 cm LV end-diastolic volume, 1-p A2C 99 ml LV ejection fraction, 1-p A2C 58 % LV end-diastolic volume, 1-p A4C 54 ml LV ejection fraction, 1-p A4C 59 % LV e', lateral 0.12 m/sec LV E/e', lateral 9 LV e', medial 0.112 m/sec LV E/e', medial 10 LV e', average 0.116 m/sec LV E/e', average 9 Ventricular septum Value Reference IVS thickness, ED, PLAX 0.7 cm LVOT Value Reference LVOT ID, A-P 1.9 cm LVOT area 2.9 cm^2 LVOT peak velocity, S 1.09 m/sec LVOT mean velocity, S 0.73 m/sec LVOT VTI, S 27.9 cm LVOT peak gradient, S 4.8 mm Hg LVOT mean gradient, S 2.5 mm Hg Stroke volume (SV), LVOT DP 80 ml Stroke index (SV/bsa), LVOT DP 41 ml/m^2 Aortic valve Value Reference Aortic valve peak velocity, S 1.9 m/sec Aortic valve mean velocity, S 1.2 m/sec Aortic valve VTI, S 42.0 cm Aortic mean gradient, S 6.8 mm Hg Aortic peak gradient, S 14.2 mm Hg VTI ratio, LVOT/AV 0.66 Aortic valve area, VTI 1.9 cm^2 Velocity ratio, peak, LVOT/AV 0.58 Aortic valve area, peak velocity 1.7 cm^2 Velocity ratio, mean, LVOT/AV 0.6 Aortic valve area, mean velocity 1.7 cm^2 Aortic valve area/bsa, mean velocity 0.9 cm^2/m^2 Aorta Value Reference Aortic root ID, ED 2.5 cm Ascending aorta ID, A-P, S 2.7 cm Left atrium Value Reference LA ID, A-P, ES 3.6 cm LA ID/bsa, A-P 1.8 cm/m^2 <=2.2 LA volume, ES, 2-p 48 ml LA volume/bsa, ES, 2-p 25 ml/m^2 LA/aortic root ratio 1.41 Mitral valve Value Reference Mitral E-wave peak velocity 1.09 m/sec Mitral A-wave peak velocity 0.82 m/sec Mitral deceleration time 166 ms 150 - 230 Mitral pressure half-time 48 ms Mitral peak gradient, D 4.7 mm Hg Mitral E/A ratio, peak 1.33 Mitral valve area, PHT, DP 4.6 cm^2 Tricuspid valve Value Reference Tricuspid regurg peak velocity 2.6 m/sec Tricuspid peak RV-RA gradient 26.6 mm Hg Right atrium Value Reference RA area, ES, A4C 15.2 cm^2 8.3 - 19.5 Pulmonic valve Value Reference Pulmonic peak gradient, S 4.4 mm Hg Legend: (L) and (H) juliette values outside specified reference range. I have personally reviewed the images and have reviewed and edited the reported findings. Electronically signed by Chadwick Johnson MD 10/21/2018 14:38
--- NOTE | 2018-10-21 11:49 | PDOC.CMDIS ---
- If Service Date Differs Date of service: 10/21/18 Time of Service: 11:49 LACE Index Scoring Tool - Questions: Length of Stay (in days): 3 Acuity (Admit via E.D.?): Yes E.D. Visits: 5 - Answers: Total Score: 10 Risk of Readmission: High Risk Care Management Discharge Reason for Hospitalization: Hypokalemia, syncope, dehydration Discharge Plan: Janessa will be discharged home today
[2018-10-21] MEDS: Meclizine 12.5 MG TAB 25 MG PO (12:20)
--- NOTE | 2018-10-21 14:41 | W.PM.PROGNOT ---
Date of Service Date of service: 10/21/18 Time of Service: 14:41 Assessment and Plan (1) Near syncope: Current visit: Yes Status: Acute Initially thought secondary to dehydration, patient continues to be hypotensive and dizzy despite aggressive IVF resuscitation. She is also inappropriately Bradycardic. - EKG Repeated, with QWaves in V1 & V2 that appear essentially unchanged since admission, but with Q in V2 appearing new since 2018. Has had negative serial cardiac biomarkers - repeat troponin now. - ECHO checked and normal. ETT unfortunately unavailable. Orthostatic vitals also checked and with appropriate rise in HR and blood pressure. Tele without significant arrhythmias. At this point doubt cardiac in origin. - Patient endorses a history of 'Vertigo'. Does not appear to be positional - patient reports continued 'dizziness' when standing, but without orthostasis. Also reports that symptoms are similiar to last bout of Vertigo some time ago that responded to Meclizine. Will consult PT for Geneva-Hallpike maneuver to rule out BPPV, and initiate Meclizine. Continue IVFs, anti-emetics. (2) Vertigo: Current visit: Yes Status: Acute As above. (3) Bradycardia: Current visit: Yes Status: Acute No clear etiology for patient's low HR. Prior values in the 60-80's mostly going back to 2016, now in the 40-70's. Patient without any obvious offending agents by med review and not on mateo agents, with a normal TSH, negative troponin, and no evidence of infection. Patient also without evidence of tick born illness - no leukopenia, thrombocytopenia, or raised LFTs. ECHO normal, and ETT unavailable currently. Plan on Holter monitor at time of discharge. (4) Right lower quadrant abdominal pain: Current visit: Yes Status: Acute CT without pathology - Appendicitis ruled out. Pain appears improved. (5) Depression: Current visit: No Status: Chronic Currently on fluoxetine. (6) Gastroesophageal reflux disease: Current visit: No Status: Chronic Continue PPI therapy. (7) DVT prophylaxis: Current visit: Yes Status: Acute SC Lovenox. Subjective Interval history since last seen: 43-year-old woman with a prior history significant for Asthma, admitted from [facility] Emergency Department with a diagnosis of Near Syncope. Ms. Covarrubias has a Past Medical History significant for Asthma, GERD, DDD, Depression, and chronic LBP. She is an employee at the [employer] - reportedly went to work while skipping breakfast on the morning of her admission, and felt lightheaded and diaphoretic on an already hot day. She then experienced a near syncopal episode. She reports multiple people who had called out sick at work, one of whom had reported GI symptoms. Upon presentation to the ED she was found to be hypotensive, tachycardic, hypokalemic, and hypomagnesemic. She did not have a fever or leukocytosis, and her imaging was negative for infection. She was however noted shortly after presentation to have a 'shaking spell', along with witnessed confusion - remained arousable and rapidly oriented. She also complained of RLQ pain. Imaging included a normal CT Head, and CT a/p with contrast ruled out acute appendicitis. Her EKG was non-schemic, and her troponin negative. She was admitted with a diagnosis of near syncope in the setting of dehydration. Following admission the patient was aggressively hydrated. However, she remained dizzy, hypotensive, and bradycardic. A repeat EKG showed evidence of QWaves in V1 that appears old, but new in V2, otherwise without significant abnormality. Cardiac Biomarkers trended and remain negative, and ECHO obtained this morning is essentially normal (Mild-Mod MR). This morning she reports continued dizziness, and now endorses a history of Vertigo that feels similiar to this event. No other events reported. Remains afebrile. Exam Narrative Exam Narrative: General: Patient appears comfortable, not acutely ill, AAOX3, NAD Neck: Supple CV: Regular, mildly bradycardic, S1S2, No rubs, murmurs, or gallops. Pulmonary: Clear to auscultation bilaterally, no crackles, wheezing, or rhonchi Abdomen: + Bowel Sounds, soft, nontender, nondistended Vascular: No lower extremity edema Psych: Normal mood and affect. Objective Objective Clinical Data: Abnormal lab results 10/21/18 10/21/18 Range/Units 06:30 06:30 MPV 12.7 H (8.0-11.0) fL Chloride 112 H (98-107) mmol/L Vital Signs Temperature 36.5 C 10/21/18 02:58 Temperature Source Temporal Artery Scan 10/21/18 02:58 Pulse 48 L 10/21/18 08:27 Pulse Rhythm Regular 10/21/18 08:45 Pulse 48 L 10/21/18 08:27 Respiratory Rate 12 10/21/18 08:27 Respiratory Effort Non-Labored 10/21/18 08:45 Respiratory Depth Normal 10/21/18 08:45 Respiratory Pattern Normal 10/21/18 08:45 Blood Pressure 112/67 10/21/18 08:27 Blood Pressure Mean 79 10/21/18 08:27 Pulse Oximetry 97 10/21/18 08:27 Oxygen Delivery Method Room Air 10/19/18 21:27 Oxygen Flow Rate 0 10/19/18 21:27 Pain Level 3 10/20/18 00:08 Comment 1616 Supine HR 55, BP 100/57 10/20/18 16:16 Intake & Output 10/20/18 10/21/18 10/21/18 23:59 11:59 23:59 Intake Total 2085.833 / 3055.833 1480 / 1730 250 / 1730 Output Total 2510 / 4110 2425 / 3250 825 / 3250 Balance -424.167 / -1054.167 -945 / -1520 -575 / -1520 Weight 81.3 kg Intake: IV 1845.833 / 2095.833 1000 / 1000 Oral 240 / 960 480 / 730 250 / 730 Output: Urine 2250 / 3850 2425 / 3250 825 / 3250 Stool 260 / 260 Other: Urine Color Yellow Yellow Yellow Urine Appearance Clear Clear Clear Urine Odor Normal Normal Normal Comment Mixed with stool. Stool Size Small Stool Characteristics Soft Brown Voiding Methods Bedside Commode Bedside Commode Laboratory Results WBC 6.12 k/cumm (4.4-10.8) 10/21/18 06:30 RBC 4.21 m/cumm (4.00-5.20) 10/21/18 06:30 Hgb 12.6 g/dL (12.0-15.5) 10/21/18 06:30 Hct 38.2 % (36.0-46.0) 10/21/18 06:30 MCV 90.7 fL (80-95) 10/21/18 06:30 MCH 29.9 pg (27.0-33.0) 10/21/18 06:30 MCHC 33.0 g/dL (32.0-36.0) 10/21/18 06:30 RDW 13.2 % (11.7-14.6) 10/21/18 06:30 Plt Count 179 x1000/uL (130-400) 10/21/18 06:30 MPV 12.7 fL (8.0-11.0) H 10/21/18 06:30 Immature Gran % 0.2 10/21/18 06:30 55.3 10/21/18 06:30 36.1 10/21/18 06:30 6.5 10/21/18 06:30 1.6 10/21/18 06:30 0.3 10/21/18 06:30 Absolute Neutrophils 3.38 k/cumm (1.2-6.7) 10/21/18 06:30 Absolute Lymphocytes 2.21 k/cumm (1.2-3.4) 10/21/18 06:30 Absolute Monocytes 0.40 k/cumm (0.11-0.7) 10/21/18 06:30 Absolute Eosinophils 0.10 k/cumm (0.0-0.7) 10/21/18 06:30 Absolute Basophils 0.02 k/cumm (0.0-0.2) 10/21/18 06:30 ESR 15 mm/hr (0-20) 10/20/18 06:50 VBG pH 7.44 (7.32-7.43) H 10/19/18 14:30 VBG pCO2 31 mm/Hg (34-47) L 10/19/18 14:30 VBG pO2 38 mm/Hg (28-44) 10/19/18 14:30 VBG HCO3 21 mmol/L (22-28) L 10/19/18 14:30 VBG Total CO2 22 mmol/L (22-29) 10/19/18 14:30 VBG O2 Saturation 75 % (70-80) 10/19/18 14:30 VBG Base Excess -3.0 mmol/L (-3-3) 10/19/18 14:30 Sodium 143 mmol/L (136-145) 10/21/18 06:30 Potassium 4.4 mmol/L (3.5-5.1) 10/21/18 06:30 Chloride 112 mmol/L (98-107) H 10/21/18 06:30 Carbon Dioxide 23.2 mmol/L (21.0-32.0) 10/21/18 06:30 7.8 mmol/L (3-11) 10/21/18 06:30 BUN 7 mg/dL (7-18) 10/21/18 06:30 0.76 mg/dL (0.55-1.02) 10/21/18 06:30 >= 60.00 (mL/min/1.73m2) 10/21/18 06:30 Glucose 95 mg/dL (70-100) 10/21/18 06:30 Calcium 8.6 mg/dL (8.5-10.1) 10/21/18 06:30 Magnesium 2.1 mg/dL (1.8-2.4) 10/21/18 06:30 0.4 mg/dL (0.2-1.0) 10/20/18 06:50 0.12 mg/dL (0.00-0.20) 10/19/18 14:20 AST 11 U/L (15-37) L 10/20/18 06:50 ALT 11 U/L (12-78) L 10/20/18 06:50 82 U/L (46-116) 10/20/18 06:50 106 U/L (26-192) 10/19/18 14:20 Cancelled 10/19/18 14:20 < 0.05 ng/mL (0.00-0.06) 10/20/18 17:37 0.35 mg/dL (0.0-0.3) H 10/20/18 06:50 5.8 g/dL (6.4-8.2) L 10/20/18 06:50 2.9 g/dL (3.4-5.0) L 10/20/18 06:50 118 U/L (73-393) 10/19/18 14:20 TSH 2.94 uIU/mL (0.358-3.74) 10/20/18 06:50 Yellow (Yellow) 10/19/18 14:51 Clear (Clear) 10/19/18 14:51 7.0 (5-8) 10/19/18 14:51 Ur Specific [place] 1.010 (1.005-1.025) 10/19/18 14:51 Negative mg/dL (Negative) 10/19/18 14:51 Negative mg/dL (Negative) 10/19/18 14:51 Negative (Negative) 10/19/18 14:51 Negative (Negative) 10/19/18 14:51 Negative (Negative) 10/19/18 14:51 0.2 EU/dL (Up TO 0.2) 10/19/18 14:51 Ur Leukocyte Esterase Negative (Negative) 10/19/18 14:51 Negative mg/dL (Negative) 10/19/18 14:51 Negative (Negative) 10/19/18 14:51 Negative (Negative) 10/19/18 14:51 Ur Barbiturates Screen Negative (Negative) 10/19/18 14:51 Ur Tricyclics Screen Negative (Negative) 10/19/18 14:51 Ur Amphetamines Screen Negative (Negative) 10/19/18 14:51 U Benzodiazepines Scrn Negative (Negative) 10/19/18 14:51 Negative (Negative) 10/19/18 14:51 Ur THC Screen Negative (Negative) 10/19/18 14:51
--- NOTE | 2018-10-21 17:01 | PDOC.CMPRO ---
- If Service Date Differs Date of service: 10/21/18 Time of Service: 17:01 Care Management Progress Note S/O: CM met with Janessa at the bedside she states she is having symptoms of dizziness when she sits up. She has a history of Vertigo which she has taken medications for in the past. Janessa has a new PT consult and a stress test planned. She was changed to inpatient today to manage symptoms. Will monitor labs and medication changes and anticipate she will be discharged in the next 48 hours. A: Janessa is a 43 year old female admitted with Hypokalemia, syncope, dehydration P: Return home when medically cleared for discharge. No services needed. Brother will transport by car.
[2018-10-21] MEDS: Meclizine 25 MG TAB PO (20:24)
[2018-10-21] MEDS: FLUoxetine 20 MG CAP PO (22:02)
[2018-10-21] MEDS: Cetirizine 10 MG TAB PO (22:03)
[2018-10-22] VITALS (41 sets, daily range): BP systolic 101–119; BP diastolic 52–70; PULSE 45–85; RESP 8–26; TEMP 36.6–36.9; O2SAT 91–99
[2018-10-22] MEDS: Acetaminophen 325 MG TAB PO (01:34)
[2018-10-22] MEDS: Lansoprazole 30 MG CAPCR PO (07:51)
[2018-10-22] MEDS: Meclizine 25 MG TAB PO ×3 (09:07→20:43)
[2018-10-22] MEDS: Enoxaparin 40 MG/0.4 ML SYR SC (09:07)
[2018-10-22] MEDS: Potassium Chloride 20 MEQ TABCR PO (09:07)
[2018-10-22] MEDS: Magnesium Gluconate 500 MG TAB PO ×2 (09:07→20:43)
[2018-10-22] MEDS: Polyethylene Glycol 3350 17 GM PACKET PO (12:57)
--- NOTE | 2018-10-22 13:25 | PGE_ITS ---
Date of Service Date of service: 10/22/18 Time of Service: 13:25 Assessment and Plan (1) Near syncope: Current visit: Yes Status: Acute Initially thought secondary to dehydration, patient continues to be symptomatic despite aggressive IVF resuscitation. She is also inappropriately Bradycardic. - EKG Repeated, with QWaves in V1 & V2 that appear essentially unchanged since admission, but with Q in V2 appearing new since 2018. Has had negative serial cardiac biomarkers. - ECHO checked and normal. ETT unfortunately unavailable, and patient reportedly intolerant of standing or walking. - Orthostatic vitals checked on multiple occasions, and with appropriate rise in HR and blood pressure. Tele without significant arrhythmias. At this point doubt cardiac in origin. - Patient endorses a history of 'Vertigo'. Does not appear to be positional - patient reports continued 'lightheadedness' as well as 'room spinning'' when standing, but without orthostasis. Also reports that symptoms are similiar to last bout of Vertigo some time ago that responded to Meclizine. Will consult PT for Ariane-Hallpike maneuver to rule out BPPV, and initiate Meclizine. Continue anti-emetics. Will also consult neurology. (2) Vertigo: Current visit: Yes Status: Acute As above. (3) Bradycardia: Current visit: Yes Status: Acute No clear etiology for patient's low HR. Prior values in the 60-80's mostly going back to 2016, now in the 40-70's. Patient without any obvious offending agents by med review and not on mateo agents, with a normal TSH, negative troponin, and no evidence of infection. Patient also without evidence of tick born illness - no leukopenia, thrombocytopenia, or raised LFTs. ECHO normal, and ETT unavailable currently. Plan on Holter monitor at time of discharge. (4) Right lower quadrant abdominal pain: Current visit: Yes Status: Acute CT without pathology - Appendicitis ruled out. Patient reports pain despite excellent appetite and good PO intake. Exam benign without any evidence of guarding or rebound. (5) Depression: Current visit: No Status: Chronic Currently on fluoxetine. (6) Gastroesophageal reflux disease: Current visit: No Status: Chronic Continue PPI therapy. (7) DVT prophylaxis: Current visit: Yes Status: Acute SC Lovenox. Subjective Interval history since last seen: 43-year-old woman with a prior history significant for Asthma, admitted from [facility] Emergency Department with a diagnosis of Near Syncope. Ms. Covarrubias has a Past Medical History significant for Asthma, GERD, DDD, Depression, and chronic LBP. She is an employee at the [employer] - reportedly went to work while skipping breakfast on the morning of her admission, and felt lightheaded and diaphoretic on an already hot day. She then experienced a near syncopal episode. She reports multiple people who had called out sick at work, one of whom had reported GI symptoms. Upon presentation to the ED she was found to be hypotensive, tachycardic, hypokalemic, and hypomagnesemic. She did not have a fever or leukocytosis, and her imaging was negative for infection. She was however noted shortly after presentation to have a 'shaking spell', along with witnessed confusion - remained arousable and rapidly oriented. She also complained of RLQ pain. Imaging included a normal CT Head, and CT a/p with contrast ruled out acute appendicitis. Her EKG was non- schemic, and her troponin negative. She was admitted with a diagnosis of near syncope in the setting of dehydration. Following admission the patient was aggressively hydrated. However, she remained dizzy, hypotensive, and bradycardic. A repeat EKG showed evidence of QWaves in V1 that appears old, but new in V2, otherwise without significant abnormality. Cardiac Biomarkers trended and remain negative, and ECHO obtained was essentially normal (Mild-Mod MR). She remains consistently bradycardic, but with an appropriate HR and BP response on orthostatic checks. However, she continues to experience vertigo upon standing, and RLQ pain. She also reports a history of Vertigo that feels similiar to this event some years ago. No other events reported. Remains afebrile. Exam Narrative Exam Narrative: General: Patient appears comfortable, not acutely ill, AAOX3, NAD Neck: Supple CV: Regular, mildly bradycardic, S1S2, No rubs, murmurs, or gallops. Pulmonary: Clear to auscultation bilaterally, no crackles, wheezing, or rhonchi Abdomen: + Bowel Sounds, soft, nontender, nondistended Vascular: No lower extremity edema Psych: Normal mood and affect. Objective Objective Clinical Data: Vital Signs Temperature 36.7 C 10/22/18 11:55 Temperature Source Temporal Artery Scan 10/22/18 11:55 Pulse 50 L 10/22/18 11:55 Pulse Rhythm Regular 10/22/18 07:57 Pulse 56 L 10/22/18 12:30 Respiratory Rate 15 10/22/18 12:30 Respiratory Effort 10/22/18 07:57 Respiratory Depth Normal 10/22/18 07:57 Respiratory Pattern Normal 10/22/18 07:57 Blood Pressure 109/52 L 10/22/18 11:55 Blood Pressure Mean 67 10/22/18 11:55 Pulse Oximetry 91 L 10/22/18 11:55 Oxygen Delivery Method Room Air 10/22/18 11:55 Oxygen Flow Rate 0 10/22/18 11:55 Pain Level 3 10/22/18 02:34 Comment 10/22/18 08:05 Intake & Output 10/21/18 10/22/18 10/22/18 23:59 11:59 23:59 Intake Total 3252.083 / 4732.083 360 / 360 Output Total 3825 / 6250 1350 / 1350 Balance -572.917 / -1517.917 -990 / -990 Weight 83.6 kg Intake: IV 1427.083 / 2427.083 Oral 1825 / 2305 360 / 360 Output: Urine 3825 / 6250 1350 / 1350 Other: Urine Color Pale Straw Yellow Urine Appearance Clear Cloudy Urine Odor Normal None Comment Had small amt of stool present so urine not tested. Stool Occult Blood Negative Stool Size Small Stool Characteristics Soft Formed Voiding Methods Bedside Commode Bedside Commode Laboratory Results WBC 6.12 k/cumm (4.4-10.8) 10/21/18 06:30 RBC 4.21 m/cumm (4.00-5.20) 10/21/18 06:30 Hgb 12.6 g/dL (12.0-15.5) 10/21/18 06:30 Hct 38.2 % (36.0-46.0) 10/21/18 06:30 MCV 90.7 fL (80-95) 10/21/18 06:30 MCH 29.9 pg (27.0-33.0) 10/21/18 06:30 MCHC 33.0 g/dL (32.0-36.0) 10/21/18 06:30 RDW 13.2 % (11.7-14.6) 10/21/18 06:30 Plt Count 179 x1000/uL (130-400) 10/21/18 06:30 MPV 12.7 fL (8.0-11.0) H 10/21/18 06:30 Immature Gran % 0.2 10/21/18 06:30 55.3 10/21/18 06:30 36.1 10/21/18 06:30 6.5 10/21/18 06:30 1.6 10/21/18 06:30 0.3 10/21/18 06:30 Absolute Neutrophils 3.38 k/cumm (1.2-6.7) 10/21/18 06:30 Absolute Lymphocytes 2.21 k/cumm (1.2-3.4) 10/21/18 06:30 Absolute Monocytes 0.40 k/cumm (0.11-0.7) 10/21/18 06:30 Absolute Eosinophils 0.10 k/cumm (0.0-0.7) 10/21/18 06:30 Absolute Basophils 0.02 k/cumm (0.0-0.2) 10/21/18 06:30 ESR 15 mm/hr (0-20) 10/20/18 06:50 VBG pH 7.44 (7.32-7.43) H 10/19/18 14:30 VBG pCO2 31 mm/Hg (34-47) L 10/19/18 14:30 VBG pO2 38 mm/Hg (28-44) 10/19/18 14:30 VBG HCO3 21 mmol/L (22-28) L 10/19/18 14:30 VBG Total CO2 22 mmol/L (22-29) 10/19/18 14:30 VBG O2 Saturation 75 % (70-80) 10/19/18 14:30 VBG Base Excess -3.0 mmol/L (-3-3) 10/19/18 14:30 Sodium 143 mmol/L (136-145) 10/21/18 06:30 Potassium 4.4 mmol/L (3.5-5.1) 10/21/18 06:30 Chloride 112 mmol/L (98-107) H 10/21/18 06:30 Carbon Dioxide 23.2 mmol/L (21.0-32.0) 10/21/18 06:30 7.8 mmol/L (3-11) 10/21/18 06:30 BUN 7 mg/dL (7-18) 10/21/18 06:30 0.76 mg/dL (0.55-1.02) 10/21/18 06:30 >= 60.00 (mL/min/1.73m2) 10/21/18 06:30 Glucose 95 mg/dL (70-100) 10/21/18 06:30 Calcium 8.6 mg/dL (8.5-10.1) 10/21/18 06:30 Magnesium 2.1 mg/dL (1.8-2.4) 10/21/18 06:30 0.4 mg/dL (0.2-1.0) 10/20/18 06:50 0.12 mg/dL (0.00-0.20) 10/19/18 14:20 AST 11 U/L (15-37) L 10/20/18 06:50 ALT 11 U/L (12-78) L 10/20/18 06:50 82 U/L (46-116) 10/20/18 06:50 106 U/L (26-192) 10/19/18 14:20 Cancelled 10/19/18 14:20 < 0.05 ng/mL (0.00-0.06) 10/20/18 17:37 0.35 mg/dL (0.0-0.3) H 10/20/18 06:50 5.8 g/dL (6.4-8.2) L 10/20/18 06:50 2.9 g/dL (3.4-5.0) L 10/20/18 06:50 118 U/L (73-393) 10/19/18 14:20 TSH 2.94 uIU/mL (0.358-3.74) 10/20/18 06:50 Yellow (Yellow) 10/19/18 14:51 Clear (Clear) 10/19/18 14:51 7.0 (5-8) 10/19/18 14:51 Ur Specific [place] 1.010 (1.005-1.025) 10/19/18 14:51 Negative mg/dL (Negative) 10/19/18 14:51 Negative mg/dL (Negative) 10/19/18 14:51 Negative (Negative) 10/19/18 14:51 Negative (Negative) 10/19/18 14:51 Negative (Negative) 10/19/18 14:51 0.2 EU/dL (Up TO 0.2) 10/19/18 14:51 Ur Leukocyte Esterase Negative (Negative) 10/19/18 14:51 Negative mg/dL (Negative) 10/19/18 14:51 Negative (Negative) 10/19/18 14:51 Negative (Negative) 10/19/18 14:51 Ur Barbiturates Screen Negative (Negative) 10/19/18 14:51 Ur Tricyclics Screen Negative (Negative) 10/19/18 14:51 Ur Amphetamines Screen Negative (Negative) 10/19/18 14:51 U Benzodiazepines Scrn Negative (Negative) 10/19/18 14:51 Negative (Negative) 10/19/18 14:51 Ur THC Screen Negative (Negative) 10/19/18 14:51
--- NOTE | 2018-10-22 15:25 | W.NEUROCONSU ---
Date of service: 10/22/18 Time of Service: 15:26 Assessment and Plan (1) Dizziness: Current visit: Yes Status: Acute (2) Near syncope: Current visit: Yes Status: Acute (3) Dehydration: Current visit: Yes Status: Acute (4) Nonspecific paroxysmal spell: Current visit: Yes Status: Acute Ms. Covarrubias is a 43-year-old, right-handed woman who was admitted after what appears to be a near syncopal spell, abdominal pain, constipation, other paroxysmal spells, and ongoing nonspecific dizziness. Her neurological exam was unremarkable. She was unable to tolerate Ariane-Hallpike testing with the left ear down. I suspect that her initial presyncopal spell was likely due to dehydration and hypovolemia in the setting of heat. She reports several other paroxysmal spells (with one event in the ER) that sound like nonepileptic psychogenic seizures in my opinion. I would not necessarily recommend any work-up for them at this time, but if they continue to happen, further neurological evaluation can be performed at that time. She otherwise reports ongoing poorly described dizziness with fluctuating descriptions, intensities, and patterns. Thus, it is quite hard to know what is going on. [place]-Hallpike testing was technically negative but she was unable to tolerate testing with her left ear down. She could have a left vestibular neuritis with extremely atypical symptoms. I discussed this with her. We discussed ongoing treatment with Gavi maneuver via PT. She has not had any response to meclizine. We discussed a trial of hydroxyzine 25 mg every 4 to 6 hours. ADRs were discussed. Finally, she clearly has significant stressors in her home life. It is unclear if these are playing a role in her current symptoms. If she does not improve, she can follow-up in the neurology clinic as an outpatient. I am otherwise signing off at this time. Please call with any further questions or concerns. DISCLAIMER: This note was created using [employer] voice recognition software. History of Present Illness Chief Complaint: dizziness Narrative: Handedness: right. HPI: Ms. Covarrubias is a 43-year-old woman with a past medical history of chronic low back pain, obesity, depression, asthma, GERD, and migraine headaches. She was admitted on 10/19/2018 after a presyncopal episode that occurred at work. She works at the local [employer]. The day was particularly hot with temperatures reaching 100 ?F and she reports the AC unit was not working that day. She was sweaty and hot when she became acutely short of breath with generalized weakness and fatigue. She collapsed to the floor without full loss of consciousness. She recalls hearing everybody around her but unable to respond. She specifically recalls her assistant department manager trying to obtain her brothers contact number, for which, Ms. Riddle used her hands and fingers to convey the phone number. She was brought to the emergency room where she remained generally weak. She was hypotensive with a systolic blood pressure in the 70s to 90s with a pulse in the 60s and 90s. She was started on IV fluids. While in the emergency room, she was witnessed to have a spell of unresponsiveness and mild generalized shaking. She immediately responded to noxious stimuli, which she recalls, with immediate return to full orientation. She recalls 3-4 similar episodes in the last 1 year that start out as a shock traveling throughout her body followed by bilateral arm numbness and shaking. These are associated with questionable loss of awareness. She recalls one event in which she returned to awareness with tears running down her face. None of these are associated with bowel or bladder incontinence. She reports having a second event the first night of her admission in her room that was unwitnessed. She has a family history of seizures in both her brother and sister. Her sister in 2014 from her epilepsy. Further work-up in the emergency room was significant for potassium of 2.5 and magnesium of 1.7. She had a normal TSH and CK of 106. Her CRP was mildly elevated at 0.35. She was treated with IV fluids and by the next day her blood pressure had returned to the low 100 systolic and her pulses sat in the 40s to 70s. Because of her ongoing bradycardia, [facility] cardiology was contacted. An echocardiogram was performed and unremarkable. She has had orthostatic bedside tilt testing performed on 10/20, 10/21, and 10/22 all of which have been normal. [facility] cardiology did not think that her episode was consistent with cardiac syncope. In addition to the above spell, she also noted constipation and right lower quadrant pain x4 days with poor p.o. intake prior to admission. She underwent a CT of her abdomen with oral and IV contrast which was unremarkable. She has since had bowel movements but continues to complain of severe pain out of proportion to her apparent lack of distress with no discernible etiology. Since admission, she has continued to note various symptoms including dizziness which at times she describes as lightheadedness, at other times as more vertiginous, and other times as neither of the above. At present, she reports her dizziness occurs only when standing. She later added that it can occur while sitting too but not necessarily all the time after I returned to her room to find her sitting comfortably. She then noted that her dizziness was in fact constant and described a blurring of her vision that occurred only when looking at the television. She has been using meclizine without any benefit. She reports an attack of vertigo ~2 years ago that resolved with a single dose of meclizine. Today she notes right ear fullness and pain which is new. She has a history of migraines approximately 3x/month for which she takes sumatriptan with excellent benefit. She has not had any recent headaches. 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 Consults Requesting physician: Lino Gonsales Review of Systems Review of Systems All systems reviewed & are unremarkable except as noted in HPI and below PFSH Medical History Asthma (Chronic) Back pain (Resolved) TAMARA II (cervical intraepithelial neoplasia II) (Resolved 02/07/16) Depression (Chronic) Gastroesophageal reflux disease (Chronic) High ankle sprain of right lower extremity (Resolved) Tobacco use (Resolved 10/15/14) Vertigo (Acute) Surgical History ANAL SURGERY Dilation and curettage discectomy (~2003) Endometrial Ablation (~2009) Ligation of fallopian tube S/P endometrial ablation (Resolved) Family History Mother Hyperlipidemia Thyroid disorder Father Essential hypertension Diabetes Personal history of malignant neoplasm Heart disease Hyperlipidemia Myocardial infarction Social History Smoking/Tobacco Use Status: Former Tobacco Use Alcohol Intake: never Drug use: Never Household members: family 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; [employer]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 Do you feel safe in your relationship?: Yes Visit Medication and Allergies Active Medications Generic Name Dose Route Start Last Admin Trade Name Freq PRN Reason Stop Dose Admin Acetaminophen 0 mg 10/19/18 19:18 10/22/18 01:34 Tylenol PO 650 mg Q4H PRN PRN Administration Al Hydrox/Mg Hydrox/Simethicone 30 ml 10/19/18 19:18 Mylanta Liquid PO Q2H PRN PRN Cetirizine HCl 10 mg 10/19/18 23:00 10/21/18 22:03 Zyrtec PO 10 mg HS BLANQUITA Administration Dimethicone/Zinc Oxide 0 gm 10/19/18 19:18 Pia Protect Cream TP PRN PRN Enoxaparin Sodium 40 mg 10/21/18 08:30 10/22/18 09:07 Lovenox SC 40 mg DAILY BLANQUITA Administration Fluoxetine HCl 20 mg 10/19/18 23:00 10/21/18 22:02 Prozac PO 20 mg HS BLANQUITA Administration IV Miscellaneous Supplies 1 each 10/19/18 14:15 IV DIRECTED BLANQUITA Lansoprazole 30 mg 10/21/18 07:30 10/22/18 07:51 Prevacid PO 30 mg DAILY@0730 BLANQUITA Administration Magnesium Gluconate 500 mg 10/20/18 08:30 10/22/18 09:07 PO 500 mg BID BLANQUITA Administration Meclizine HCl 25 mg 10/21/18 20:00 10/22/18 14:30 Antivert PO 25 mg TID BLANQUITA Administration Ondansetron HCl 4 mg 10/20/18 13:09 10/20/18 13:54 Zofran Injection IVP 4 mg Q4H PRN PRN Administration Polyethylene Glycol 17 gm 10/22/18 12:49 10/22/18 12:57 Miralax PO 17 gm DAILY PRN PRN Administration Potassium Chloride 20 meq 10/23/18 08:30 K-Dur PO DAILY BLANQUITA Ranitidine HCl 150 mg 10/20/18 08:30 10/22/18 09:06 Zantac PO 150 mg BID BLANQUITA Administration Sodium Chloride 0 ml 10/19/18 14:13 10/20/18 13:54 Saline Flush 10 Ml Syringe IVP 10 ml PRN PRN Administration Allergies venom-honey bee Allergy (Severe, Unverified 10/19/18 14:39) Sulfa (Sulfonamide Antibiotics) Allergy (Unverified 10/19/18 14:39) HIVES Exam Narrative Exam Narrative: Physical Exam: Gen: Patient of apparent stated age, NAD Head and face: no facial or cranial abnormalities Neck: Supple, no meningismus, no occipital tenderness CV: + S1, S2, RRR, no murmur Resp: CTA B/L Abd: soft, +BS, nondistended Ext: No edema. No clubbing or cyanosis. No bony deformity. SCDs in place. Neuro Exam: Language: fluency, naming, repetition, and comprehension intact; Mental Status: AAOx3, current events intact, fund of knowledge intact; Speech: no dysarthria Cranial nerves: Funduscopy: not performed CN II: visual velez intact CN III, IV, : extraocular movements intact, no nystagmus, pupils symmetric and reactive to light CN V: face sensation intact to LT and PP CN VII: no facial asymmetry noted CN VIII: hearing intact bilaterally CN IX, X: palate rises symmetrically CN XI: trapezius/SCM 5/5 bilaterally CN XII: protrudes tongue symmetrically Sensory: intact to LT, PP, vibration, and joint position in all extremities Motor: bulk and tone intact. Fine motor movements intact bilaterally. No pronator drift. Strength 5/5 throughout including the deltoids, biceps, triceps, wrist extensors, hip flexors, knee flexors, knee extensors, ankle flexors, and ankle extensors. Reflexes: 2+ at the biceps, triceps, brachioradialis, patella, and achilles tendons bilaterally; toes down going bilaterally; Coordination: FTN and HTS intact bilaterally Gait: deferred [place]-Hallpike Testing: unable to tolerate left ear down; immediately sat up and dry heaving; no nystagmus; right ear testing was negative Results Last Vital Signs Temp 36.7 C 10/22/18 11:55 Pulse 50 L 10/22/18 11:55 Resp 15 10/22/18 12:30 BP 109/52 L 10/22/18 11:55 Pulse Ox 91 L 10/22/18 11:55 Labs : 10/21/18 06:30 10/21/18 06:30
--- NOTE | 2018-10-22 16:00 | IN_ITS ---
Date of service: 10/22/18 Time of Service: 09:14 PT Notes Inpatient Physical Therapy Evaluation Date: 10/22/2018 Referring Doctor: Lino Gonsales MD PT Orders: PT CONSULT: Please evaluate for BPPV/Branscomb Hallpike Precautions: Fall. Standard. Patient Profile/Admitting Diagnosis: Patient is a 43-year-old lady who presented to the ED on 10/19/2018 with near syncopal episode as well as shaking and confusion upon MD arrival into her while at ED. patient was diagnosed with right and left quadrant abdominal pain, hypokalemia, hypo-syncope, and dehydration. PMHX: Medical History Back pain (Resolved) TAMARA II (cervical intraepithelial neoplasia II) (Resolved 02/07/16) High ankle sprain of right lower extremity (Resolved) Tobacco use (Resolved 10/15/14) Surgical History ANAL SURGERY Dilation and curettage discectomy (~2003) Endometrial Ablation (~2009) Ligation of fallopian tube S/P endometrial ablation (Resolved) Social History/Home Situation: Patient lives with mother in her mother's mobilie home with three steps to enter and a rail on the right going up. She states that she has been taking care of her mother but has [facility] staff come in to help her on days that that she would go to [employer] [facility] [employer] [employer] to work. She reports that she has 5 grown children who all ave been living on their own. Current Functional Limitations: Limited and impaired mobility performance due to reports of dizziness Equipment Owned/DME: None Subjective: Patient is agreeable with PT eval and treatment today. Patient reports R ear congestion that started early this morning and persisted later today at time of PT eval. She feels like she is swimming under water and that she can can hear her voice from her right ear. She elaborated there were only three of them at work on Sunday and how much exhausted she was right before the presyncopal episode she had that day. She also said that she has taken care of her mother and shares how much stress she has at work and at home currently. Objective: General Observation: Telemetry monitoring in place. TEDS on bilateral legs. IV in R UE. Mental Status: Alert and oriented x 4 Pain: 0/10 ROM: Right Upper Extremity: Shoulder Flexion WFL. Shoulder abduction WFL. Elbow flexion WFL. Wrist flexion WFL. Functional opening and closing of hand WFL. Left Upper Extremity: Shoulder Flexion WFL. Shoulder abduction WFL. Elbow flexion WFL. Wrist flexion WFL. Functional opening and closing of hand WFL. Right Lower Extremity: Hip flexion WFL. Hip abduction WFL. Knee flexion WFL. Ankle dorsiflexion WFL. Ankle plantarflexion WFL. Left Lower Extremity: Hip flexion WFL. Hip abduction WFL. Knee flexion WFL. Ankle dorsiflexion WFL. Ankle plantarflexion WFL. Strength: Right Upper Extremity: Shoulder flexors 5/5. Shoulder abductors 5/5. Elbow flexors 5/5. Elbow extensors 5/5. Teacher Associate strong. Left Upper Extremity: Shoulder flexors 5/5. Shoulder abductors 5/5. Elbow flexors 5/5. Elbow extensors 5/5. Teacher Associate strong. Right Lower Extremity: Hip flexors 5/5. Hip abductors 5/5. Knee flexors 5/5. Knee extensors 5/5. Ankle dorsiflexors 5/5. Ankle plantarflexors 5/5. Left Lower Extremity:Hip flexors 5/5. Hip abductors 5/5. Knee flexors 5/5. Knee extensors 5/5. Ankle dorsiflexors 5/5. Ankle plantarflexors 5/5. Sensation: Intact as to pain and pressure on bilateral lower extremities. Bed Mobility/Transfers: Rolling CGA Supine to sit NT due to persistent severe dizziness from performing the vertigo tests Sit to supine NT due to persistent severe dizziness from performing the vertigo tests Sit to stand NT due to persistent severe dizziness from performing the vertigo tests Stand to sit NT due to persistent severe dizziness from performing the vertigo tests Bed to chair NT due to persistent severe dizziness from performing the vertigo tests. Per nursing, patient required assist of 2 for bed<>commode transfer and a walker Chair to bed NT due to persistent severe dizziness from performing the vertigo tests. Per nursing, patient required assist of 2 for bed<>commode transfer and a walker Gait: due to persistent severe dizziness from performing the vertigo tests. Per nursing, patient required assist of 2 for bed<>commode transfer Balance: Static Sitting: Fair Dynamic Sitting: Fair Static Standing: Poor Dynamic Standing: Poor Special Tests: Mobility Limitations Standardized Measure [facility] AM-PAC 6 clicks Basic Mobility Inpatient Short Form: Raw Score: 12 CMS Score: 69% deficit VERTIGO TESTING: Patient reported increased dizziness with vertebral artery testing on the R side. Vestibuloocular reflex intact, however patient reported increased symptom of dizziness with all head movements. The Branscomb-Hallpike maneuver produced no nystagmus when tested on both sides although patient continued to complain of dry heaving and warping of the room when turned to the L, not so much to the right. Findings for BPPV inconclusive at this time and will re-attempt another testing tomorrow morning. Informed Consent/Education: Patient instructed in purpose of PT consult and plan of care. Assessment: Patient is a 43-year-old lady who presented to the ED on 10/19/2018 with near syncopal episode as well as shaking and confusion upon MD arrival into her while at ED. patient was diagnosed with right and left quadrant abdominal pain, hypokalemia, pre-syncope, and dehydration. Patient presents with clinical signs and symptoms consistent with current/admitting diagnoses that have resulted to mobility limitations, gait instability, generalized weakness, and impairment of motor control as demonstrated by the following impairment level findings: 1. Dizziness, nausea, dry heaving 2. Impaired sitting/standing balance 3. Impaired activity tolerance Impairments are contributing to the following functional limitations: 1. Dependent bed mobility skills 2. Increased dependence with transfers 3. Inability to safely ambulate without assistive device and physical assistance 4. Increase completion time for mobility ADL performance 5. Increased fall risk 6. Inability to negotiate steps alone safely Patient is assessed as a 08525 moderate complexity based on the following: History: Patient is a 43-year-old lady who presented to the ED on 10/19/2018 with near syncopal episode as well as shaking and confusion upon MD arrival into her while at ED. patient was diagnosed with right and left quadrant abdominal pain, hypokalemia, hypo-syncope, and dehydration. Examination: Demonstrable impairment in strength, balance, and range of motion with underlying impairments and functional limitations as documented above Presentation:Evolving Decision Makin moderate complexity Goals: Goals X1 week 1. Supine-Sit independent 2. Sit-Supine independent 3. Sit-Stand independent 4. Stand-Sit independent 5. Bed-Chair independent 6. Chair-Bed independent 7. Independent gait on level surface with out an assistive device for at least 300 feet without report of pain nor dyspnea 8. Independent stair negotiation while holding onto bilateral rails for at least 10 steps without report of pain nor dyspnea 9. Independent with home exercise program 10. Good static and dynamic standing balance/tolerance Plan of Care/Treatment Plan: 1-2x/day, 7 days/week x 1 week. Plan of care has been reviewed with the MANAGER ANALYTICAL providing the service under Physical Therapy direction. Initiate Physical Therapy intervention for strengthening, bed mobility, transfers, gait, stairs, balance training, use of assistive device. DISCHARGE RECOMMENDATIONS: Home with [facility]WW. TREATMENT CODE/TIME: 52882 x 30 minutes, 31784 x 23 minutes beginning 14:35 PM. Thank you very much for this referral. Gaby Marquez PT, DPT, CLT [facility]
[2018-10-22] MEDS: hydrOXYzine HCL 25 MG TAB PO (22:50)
[2018-10-22] MEDS: Cetirizine 10 MG TAB PO (22:50)
[2018-10-22] MEDS: FLUoxetine 20 MG CAP PO (22:50)
[2018-10-23 00:18] VITALS: BP 105/68; PULSE 64; RESP 16; TEMP 36.5; O2SAT 98
[2018-10-23 03:35] VITALS: BP 118/68; PULSE 74; RESP 18; TEMP 36.4; O2SAT 95
[2018-10-23 07:01] VITALS: PULSE 46
[2018-10-23 07:38] LABS: ALT 23 U/L (12-78); AST 16 U/L (15-37); Albumin 3.3 g/dL (3.4-5.0); Alkaline Phosphatase 92 U/L (46-116); Anion Gap 6.3 mmol/L (3-11); BUN 14 mg/dL (7-18); Bilirubin, Total 0.2 mg/dL (0.2-1.0); CO2 29.7 mmol/L (21.0-32.0); CREATININE 0.92 mg/dL (0.55-1.02); Calcium 8.7 mg/dL (8.5-10.1); Chloride 105 mmol/L (98-107); Glucose 104 mg/dL (70-100); Sodium 141 mmol/L (136-145); Total Protein 6.5 g/dL (6.4-8.2)
[2018-10-23 07:43] LABS: Abs Immature Grans 0.03 k/cumm (0.0-0.09); Absolute Basophil Count 0.01 k/cumm (0.0-0.2); Absolute Eosinophil Count 0.09 k/cumm (0.0-0.7); Absolute Lymphocyte Count 1.96 k/cumm (1.2-3.4); Absolute Monocyte Count 0.52 k/cumm (0.11-0.7); Absolute Neutrophil Count 3.71 k/cumm (1.2-6.7); Basophils % 0.2; Eosinophils % 1.4; HCT 41.3 % (36.0-46.0); HGB 13.7 g/dL (12.0-15.5); Immature Grans % 0.5; Mean Corp. HGB Concentration 33.2 g/dL (32.0-36.0); Mean Corpuscular Hemoglobin 29.7 pg (27.0-33.0); Mean Corpuscular Volume 89.6 fL (80-95); Mean Platelet Volume 12.3 fL (8.0-11.0); Monocytes % 8.2; Neutrophils % 58.7; Platelet Count 209 x1000/uL (130-400); RBC 4.61 m/cumm (4.00-5.20); RBC Distribution Width 12.9 % (11.7-14.6); White Blood Cell Count 6.32 k/cumm (4.4-10.8)
[2018-10-23 07:50] VITALS: BP 111/75; PULSE 88; RESP 19; TEMP 36.6; O2SAT 97
[2018-10-23] MEDS: Ondansetron 4 MG/2 ML VIAL IVP (08:34)
[2018-10-23] MEDS: Normal Saline Flush 10 ML SYR IVP (08:35)
[2018-10-23] MEDS: Magnesium Gluconate 500 MG TAB PO (08:38)
[2018-10-23] MEDS: Meclizine 25 MG TAB PO ×2 (08:38→13:26)
[2018-10-23] MEDS: Lansoprazole 30 MG CAPCR PO (08:39)
[2018-10-23] MEDS: Potassium Chloride 20 MEQ TABCR PO (08:40)
[2018-10-23] MEDS: Enoxaparin 40 MG/0.4 ML SYR SC (08:41)
[2018-10-23 11:32] VITALS: BP 103/67; PULSE 53; RESP 18; TEMP 36.5; O2SAT 98
--- NOTE | 2018-10-23 12:01 | DSE_ITS ---
Date of service: 10/23/18 Time of Service: 12:01 DS: Diagnosis Discharge Diagnosis (1) Dizziness: Status: Acute (2) Near syncope: Status: Acute (3) Dehydration: Status: Acute (4) Nonspecific paroxysmal spell: Status: Acute Discharge Plan Disposition Patient Disposition: HOME Condition: Stable Discharge Details Chief Complaint: SOB Reason For Visit: HYPOKALEMIA, SYNCOPE, DEHYDRATION Admit Date/Time: 10/22/18 09:00 Admit Provider: Luca Marks Attending Provider: Luca Marks Primary Care Provider: Sarah Beltrán ED Provider: Siddharth Barragan Hospital Course Hospital Course: Chief Complaint: Near Syncope HPI: 43-year-old woman with a prior history significant for Asthma, admitted from [facility] Emergency Department with a diagnosis of Near Syncope. Ms. Covarrubias has a Past Medical History significant for Asthma, GERD, DDD, Depression, and chronic LBP. She is an employee at the local [employer] - reportedly went to work while skipping breakfast on the morning of her admission, and felt lightheaded and diaphoretic on an already hot day. She then experienced a near syncopal episode. She also reported multiple people who had called out sick at work, one of whom had reported GI symptoms. Upon presentation to the ED she was found to be hypotensive, tachycardic, hypokalemic, and hypomagnesemic. She did not have a fever or leukocytosis, and her imaging was negative for infection. She was however noted shortly after presentation to have a 'shaking spell', along with witnessed confusion - remained arousable and rapidly oriented. She also complained of RLQ pain. Imaging included a normal CT Head, and CT a/p with contrast ruled out acute appendicitis. Her EKG was non- schemic, and her troponin negative. She was admitted with a diagnosis of near syncope in the setting of dehydration. Following admission the patient was aggressively hydrated. However, she remained dizzy. A repeat EKG showed evidence of QWaves in V1 that appears old, but new in V2, otherwise without significant abnormality. Cardiac Biomarkers trended and remain negative, and ECHO obtained was essentially normal (Mild-Mod MR). She remains consistently bradycardic, but with an appropriate HR and BP response on orthostatic checks. However, she continued to experience vertigo upon standing, as well as RLQ pain. She also reported a history of Vertigo that feels similiar to this event some years ago. Her symptoms were described as dizziness, lightheadedness, and room spinning. Per neurology evaluation, the patient had an unremarkable neurological exam, and deemed the event likely due to dehydration. No other events reported. Remains afebrile. Hospital Course: (1) Near syncope: Initially thought secondary to dehydration, patient continued to be symptomatic despite aggressive IVF resuscitation. She was also inappropriately Bradycardic. - EKG Repeated, with QWaves in V1 & V2 that appear essentially unchanged since admission, but with Q in V2 appearing new since 2018. Has had negative serial cardiac biomarkers. - ECHO checked and normal (Moderate MR). ETT unfortunately unavailable, and patient reportedly intolerant of standing or walking. May be considered as an outpatient, although low suspicion for ischemia. - Orthostatic vitals checked on multiple occasions, and with appropriate rise in HR and blood pressure. Tele without significant arrhythmias. At this point doubt cardiac in origin. - Patient endorses a history of 'Vertigo'. Does not appear to be positional - reported continued 'lightheadedness' as well as 'room spinning'' when standing, but without orthostasis. Also reports that symptoms are similiar to last bout of Vertigo some time ago that responded to Meclizine. Neurology evaluation with near syncope potentially on basis of dehydration. The patient's 'syncopal episode' in the ED was deemed as likely nonepileptic and psychogenic in nature. No further work-up was recommended, and trial of Hydroxyzine was offered. Physical therapy without evidence of Nystagmus on testing. Patient requesting Forward Wheel Walker at time of discharge. Will obtain outpatient PT as well via Home Health. (2) Vertigo: As above. (3) Bradycardia: No clear etiology for patient's low HR. Prior values in the 60-80's mostly going back to 2016, now in the 40-70's. Patient without any obvious offending agents by med review and not on mateo agents, with a normal TSH, negative troponin, and no evidence of infection. Patient also without evidence of tick born illness - no leukopenia, thrombocytopenia, or raised LFTs. ECHO normal, and ETT unavailable currently. Plan on Holter monitor at time of discharge, with careful monitoring as an outpatient. Does not appear as etiology for Vertigo. (4) Right lower quadrant abdominal pain: CT without pathology - Appendicitis ruled out. Patient reports pain despite excellent appetite and good PO intake. Exam benign without any evidence of guarding or rebound. (5) Depression: Currently on fluoxetine. (6) Gastroesophageal reflux disease: Continue PPI therapy. (7) DVT prophylaxis: SC Lovenox. Home Meds and New Rx's Prescriptions: New hydroxyzine HCl 25 mg Tablet 25 mg PO TID PRN PRNQty: 30 RF: 0 Continued albuterol sulfate 90 mcg/actuation HFA aerosol inhaler 2 puff IH Q6H PRNRF: 0 epinephrine 0.3 mg/0.3 mL auto-injector 0.3 mg IM ONCE Qty: 1 RF: 0 sumatriptan succinate 50 mg tablet 50 mg PO PRN MDD 100mg Qty: 30 RF: 1 meclizine 25 mg tablet 25 mg PO TID PRN (Reason: dizziness) Qty: 30 RF: 0 cetirizine [All Day Allergy (cetirizine)] 10 mg tablet 10 mg PO DAILY Qty: 90 RF: 3 fluoxetine 20 mg capsule 20 mg PO DAILY Qty: 90 RF: 3 lansoprazole 30 mg capsule,delayed release(DR/EC) 30 mg PO DAILY Qty: 90 RF: 3 Discharge Instructions Stand Alone Forms: Nursing Discharge Form Referrals: Janny Ortiz MD [ [facility] STAFF PHYSICIAN] - 10/30/18 9:20 am Activity:: No Strenuous Walker. Ambulatory safety as per PT. Equipment/Supplies:: Walker Diet:: As Tolerated Discharge Orders Discharge Orders: Discharge Order (Routine); Ordered 10/23/18 Ordered By: Lino Gonsales Other Ambulatory Orders: Holter Monitor (Outpt) (ONCE) Location: None Selected Ordered By: Lino Gonsales DS: Data Vitals/I&O Vitals and I&O: Vital Signs Temperature 36.5 C 10/23/18 11:32 Temperature Source Tympanic 10/23/18 11:32 Pulse 53 L 10/23/18 11:32 Pulse Rhythm Regular 10/22/18 20:00 Pulse 57 L 10/22/18 16:00 Respiratory Rate 18 10/23/18 11:32 Respiratory Effort 10/22/18 20:00 Respiratory Depth Normal 10/22/18 20:00 Respiratory Pattern Normal 10/22/18 20:00 Blood Pressure 103/67 10/23/18 11:32 Blood Pressure Mean 78 10/22/18 15:57 Pulse Oximetry 98 10/23/18 11:32 Oxygen Delivery Method Room Air 10/23/18 11:32 Oxygen Flow Rate 0 10/23/18 11:32 Pain Level 0 10/23/18 03:35 Comment 10/23/18 03:35 Intake & Output 10/22/18 10/23/18 10/23/18 23:59 11:59 23:59 Intake Total 660 / 1020 1232.917 / 1232.917 Output Total 450 / 2150 Balance 210 / -1130 1232.917 / 1232.917 Intake: IV 572.917 / 572.917 Oral 660 / 1020 660 / 660 Output: Urine 450 / 2150 Other: Urine Color Yellow Urine Appearance Clear Urine Odor Normal Comment Void x1. Voiding Methods Toilet Toilet Completed studies during hospitalization [Text1]: Exam(s) 10/[address]:CT head wo SYMPTOM/DIAGNOSIS: POSSIBLE SZ CHANGE IN MENTAL STATUS CT BRAIN: Noncontrast. No priors. A noncontrast cranial CT was performed. The ventricular system is normal in appearance. There is no evidence of an intracranial mass lesion. There is no evidence of a subdural or epidural hematoma. No focal areas of decreased attenuation are seen. CONCLUSION: Normal noncontrast Cranial CT. Exam(s) 10/19/[address]:CT abdomen & pelvis w SYMPTOM/DIAGNOSIS: RLQ PAIN, NEAR SYNCOPE CT SCAN ABDOMEN AND PELVIS: CT scan of the abdomen and pelvis was performed following the uneventful administration of intravenous contrast material. Comparison is 01/22/18 No acute findings are seen in the lung bases. The liver is unremarkable. No evidence of a suspicious hepatic mass is seen The portal, superior mesenteric and splenic veins are patent. The gallbladder is negative. There is no biliary ductal dilatation. The pancreas is unremarkable as are the spleen and adrenal glands. Note is made of a cyst in the right kidney. This is unchanged compared to prior examinations. No suspicious solid renal mass is seen. No obstruction is identified. The urinary bladder is intact. Reproductive organs are grossly unremarkable as visualized. The abdominal aorta is of normal caliber. No significant abdominal or pelvic adenopathy, ascites or pneumoperitoneum is seen. The bowel is unremarkable. The appendix is not definitely visualized on this examination but no right lower quadrant inflammatory process is appreciated. No acute osseous abnormalities identified. IMPRESSION: No evidence of an acute abdomen. The appendix is not definitely visualized. If there is continued concern a repeat examination with oral contrast may be obtained. --------- Exam(s) 10/[address]:CT abdomen & pelvis w SYMPTOM/DIAGNOSIS: RLQ PAIN, NEAR SYNCOPE CT SCAN ABDOMEN AND PELVIS: CT scan of the abdomen and pelvis was performed following the uneventful administration of intravenous contrast material. Comparison is 01/22/18 No acute findings are seen in the lung bases. The liver is unremarkable. No evidence of a suspicious hepatic mass is seen The portal, superior mesenteric and splenic veins are patent. The gallbladder is negative. There is no biliary ductal dilatation. The pancreas is unremarkable as are the spleen and adrenal glands. Note is made of a cyst in the right kidney. This is unchanged compared to prior examinations. No suspicious solid renal mass is seen. No obstruction is identified. The urinary bladder is intact. Reproductive organs are grossly unremarkable as visualized. The abdominal aorta is of normal caliber. No significant abdominal or pelvic adenopathy, ascites or pneumoperitoneum is seen. The bowel is unremarkable. The appendix is not definitely visualized on this examination but no right lower quadrant inflammatory process is appreciated. No acute osseous abnormalities identified. IMPRESSION: No evidence of an acute abdomen. The appendix is not definitely visualized. If there is continued concern a repeat examination with oral contrast may be obtained. --------- Exam(s) 10/19/[address]:CT abdomen & pelvis w SYMPTOM/DIAGNOSIS: ABDOMINAL PAIN, ? APPENDICITIS CT ABDOMEN AND PELVIS: (09/[address] CT scan of the abdomen and pelvis was performed following the uneventful administration of intravenous and oral contrast material. Comparison is made with examination from earlier in the day. Dependent atelectatic changes are seen in the lung bases. The liver, spleen, pancreas, gallbladder, bile ducts and adrenal glands are unremarkable. The kidneys show normal and symmetric enhancement. No evidence of a solid renal mass or obstruction. Incidental note is again made of a right renal cyst. Urinary bladder is intact. Reproductive organs are unremarkable as visualized, The abdominal aorta is of normal caliber. No significant abdominal or pelvic adenopathy, ascites or pneumoperitoneum is present. The bowel shows no evidence of obstruction or inflammation. There is oral contrast seen within a normal appendix. No acute osseous abnormalities identified. IMPRESSION: No evidence of an acute abdomen. Normal appearance of the appendix which contains oral contrast. --------- Exam(s) a US:US echocardiogram Date of study: 10/21/2018 Transthoracic Echocardiography M-mode, complete 2D, complete spectral Doppler, and color Doppler *STUDY CONCLUSIONS* Summary: 1. Left ventricle: The cavity size was normal. Systolic function was normal. The estimated ejection fraction was 60-65%. Diastolic parameters were normal. There was no evidence of elevated ventricular filling pressure by Doppler parameters. 2. Mitral valve: There was mild to moderate regurgitation. 3. Right ventricle: The cavity size was mildly dilated. Systolic function was normal. 4. Atrial septum: No defect or patent foramen ovale was identified. 5. Pulmonary arteries: Pulmonary systolic pressure was in the range of 25mm Hg to 35mm Hg. 6. Inferior vena cava: The vessel was normal in size. The respirophasic diameter changes were in the normal range (greater than or equal to 50%), consistent with normal central venous pressure. Labs on day of discharge: Labs from last 24 hours 10/23/18 10/23/18 06:40 06:40 WBC 6.32 RBC 4.61 Hgb 13.7 Hct 41.3 MCV 89.6 MCH 29.7 MCHC 33.2 RDW 12.9 Plt Count 209 MPV 12.3 H Immature Gran % 0.5 Neutrophils % 58.7 Lymphocytes % 31.0 Monocytes % 8.2 Eosinophils % 1.4 Basophils % 0.2 Absolute Neutrophils 3.71 Absolute Lymphocytes 1.96 Absolute Monocytes 0.52 Absolute Eosinophils 0.09 Absolute Basophils 0.01 Sodium 141 Potassium 4.0 Chloride 105 Carbon Dioxide 29.7 Anion Gap 6.3 BUN 14 D Creatinine 0.92 Estimated GFR/1.73 m2 >= 60.00 Glucose 104 H Calcium 8.7 Magnesium 2.0 Total Bilirubin 0.2 AST 16 ALT 23 Alkaline Phosphatase 92 Total Protein 6.5 Albumin 3.3 L PFSH Medical History Asthma (Chronic) Back pain (Resolved) TAMARA II (cervical intraepithelial neoplasia II) (Resolved 02/07/16) Depression (Chronic) Gastroesophageal reflux disease (Chronic) High ankle sprain of right lower extremity (Resolved) Tobacco use (Resolved 10/15/14) Vertigo (Acute) Surgical History ANAL SURGERY Dilation and curettage discectomy (~2003) Endometrial Ablation (~2009) Ligation of fallopian tube S/P endometrial ablation (Resolved) Family History Mother Hyperlipidemia Thyroid disorder Father Essential hypertension Diabetes Personal history of malignant neoplasm Heart disease Hyperlipidemia Myocardial infarction Social History Smoking/Tobacco Use Status: Former Tobacco Use Alcohol Intake: never Drug use: Never Household members: family current occupation: [employer]; [employer] in summer Do you feel safe in your relationship?: Yes
--- NOTE | 2018-10-23 12:55 | PDOC.HHF2F ---
1. Encounter Date and Reason I certify that ARTHUR PHELPS was seen by Lino Gonsales on 10/23/18 and that I had a [id number] encounter with this patient that meets the physician face to face encounter requirements. 2. Clinical Findings Supporting Skilled Need and Homebound Status I certify that home health services are medically necessary, include either intermittent care home and/or physical/speech therapy, and that this patient is homebound in that absences from the home require considerable and taxing effort and are infrequent or of short duration, or are attributable to the need to receive medical care. [X] (a) Attached documentation from encounter provides clinical findings supporting skilled need and homebound status (including what assistance patient requires to leave the home). The encounter with the patient was in whole, or in part, for the following medical condition, which is the primary reason for home health care: HYPOKALEMIA, SYNCOPE, DEHYDRATION Detention: Physical Therapy: Ambulatory dysfunction secondary to subjective dizziness/vertigo Speech Therapy: Homebound: 3. Certification and Authentication I certify that I composed the above information based on my clinical judgement relating to this patient's medical condition and, if applicable, clinical findings communicated to me by the NPP or inpatient physician who performed the Home Health Referral. All further orders will be obtained through (Community Based Physician - PCP)
[2018-10-23 13:21] VITALS: PULSE 56
--- NOTE | 2018-10-23 14:42 | CMDISCH_ITS ---
- If Service Date Differs Date of service: 10/23/18 Time of Service: 14:42 LACE Index Scoring Tool - Questions: Length of Stay (in days): 4 - 6 Acuity (Admit via E.D.?): Yes E.D. Visits: 5 - Answers: Total Score: 11 Risk of Readmission: High Risk Care Management Discharge Reason for Hospitalization: Hypokalemia, syncope, dehydration Discharge Plan: Janessa will be discharged home today with new home health PT and a FWW. She continues to complain of some dizzyness and will use the walker for stability. PT has recomended home health PT. CM has coordinated a FWW through [facility] which is the pateint choice of DME after offering both [facility] and [facility]. Janessa was provided a work note for the days missed. She will be discharged home with a follow up appointment for primary care and her spouse yessenia transport her home. Patient/Family Education Needs: Discharge education, limitations and follow up plan of care including ask me three and self management. Services Needed at Discharge: DME Agency, Home Health Care Services, Physical T herapy
--- NOTE | 2018-10-23 15:31 | INDS_ITS ---
Date of service: 10/23/18 Time of Service: 09:14 PT Notes Inpatient Physical Therapy Discharge Summary Dates: 10/23/2018 Dates of Service: 10/22/2018 and 10/23/1989 and Referring Doctor: Lino Gonsales MD PT Orders: PT CONSULT: Please evaluate for BPPV/Ariane Hallpike Precautions: Fall. Standard. Patient Profile/Admitting Diagnosis: Patient is a 43-year-old lady who presented to the ED on 10/19/2018 with near syncopal episode as well as shaking and confusion upon MD arrival into her while at ED. patient was diagnosed with right and left quadrant abdominal pain, hypokalemia, hypo-syncope, and dehydration. PMHX: Medical History Back pain (Resolved) TAMARA II (cervical intraepithelial neoplasia II) (Resolved 02/07/16) High ankle sprain of right lower extremity (Resolved) Tobacco use (Resolved 10/15/14) Surgical History ANAL SURGERY Dilation and curettage discectomy (~2003) Endometrial Ablation (~2009) Ligation of fallopian tube S/P endometrial ablation (Resolved) Social History/Home Situation: Patient lives with mother in her mother's mobilie home with three steps to enter and a rail on the right going up. She states that she has been taking care of her mother but has [facility] staff come in to help her on days that that she would go to [facility] to work. She reports that she has 5 grown children who all ave been living on their own. Current Functional Limitations: Limited and impaired mobility performance due to reports of dizziness Equipment Owned/DME: None Subjective: Patient reports continued dizziness, albeit of lesser intensity than the past days. She states her right ear continues to be congested and she feels like she is swimming underwater. She does not feel stable without holding onto walker when she is walking. Objective: General Observation: Telemetry monitoring still in place. TEDS on bilateral legs. IV now off. Mental Status: Alert and oriented x 4 Pain: 0/10 ROM: Right Upper Extremity: Shoulder Flexion WFL. Shoulder abduction WFL. Elbow flexion WFL. Wrist flexion WFL. Functional opening and closing of hand WFL. Left Upper Extremity: Shoulder Flexion WFL. Shoulder abduction WFL. Elbow flexion WFL. Wrist flexion WFL. Functional opening and closing of hand WFL. Right Lower Extremity: Hip flexion WFL. Hip abduction WFL. Knee flexion WFL. Ankle dorsiflexion WFL. Ankle plantarflexion WFL. Left Lower Extremity: Hip flexion WFL. Hip abduction WFL. Knee flexion WFL. Ankle dorsiflexion WFL. Ankle plantarflexion WFL. Strength: Right Upper Extremity: Shoulder flexors 5/5. Shoulder abductors 5/5. Elbow flexors 5/5. Elbow extensors 5/5. Fruit Distributor strong. Left Upper Extremity: Shoulder flexors 5/5. Shoulder abductors 5/5. Elbow flexors 5/5. Elbow extensors 5/5. Fruit Distributor strong. Right Lower Extremity: Hip flexors 5/5. Hip abductors 5/5. Knee flexors 5/5. Kne e extensors 5/5. Ankle dorsiflexors 5/5. Ankle plantarflexors 5/5. Left Lower Extremity:Hip flexors 5/5. Hip abductors 5/5. Knee flexors 5/5. Knee extensors 5/5. Ankle dorsiflexors 5/5. Ankle plantarflexors 5/5. Sensation: Intact as to pain and pressure on bilateral lower extremities. Bed Mobility/Transfers: Rolling CGA Supine to sit SBA Sit to supine SBA Sit to stand CGA Stand to sit CGA Bed to chair CGA Chair to bed CGA Gait: Patient was able to tolerate short distance ambulation of 25 feet x 2 using a FWW with CGA assist of this PT despite report of continued dizziness. Balance: Static Sitting: Fair Dynamic Sitting: Fair Static Standing: Fair Dynamic Standing: Fair VERTIGO RE-TESTING: Re-attempted Ariane-Hallpike Maneuver this morning with patient reporting continued but comparatively decreased dizziness on both sides with left head turning more affected than the right, still no nystagmus produced on either side. Informed Consent/Education: Patient instructed in purpose of PT consult and plan of care. Assessment: Patient is a 43-year-old lady who presented to the ED on 10/19/2018 with near syncopal episode as well as shaking and confusion upon MD arrival into her while at ED. patient was diagnosed with right and left quadrant abdominal pain, hypokalemia, pre-syncope, and dehydration. Patient presents with clinical signs and symptoms consistent with current/admitting diagnoses that have resulted to mobility limitations, gait instability, generalized weakness, and impairment of motor control as demonstrated by the following impairment level findings: 1. Dizziness, nausea, dry heaving 2. Impaired sitting/standing balance 3. Impaired activity tolerance Impairments are contributing to the following functional limitations: 1. Dependent bed mobility skills 2. Increased dependence with transfers 3. Inability to safely ambulate without assistive device and physical assistance 4. Increase completion time for mobility ADL performance 5. Increased fall risk 6. Inability to negotiate steps alone safely Goals: Goals X1 week 1. Supine-Sit independent NOT MET 2. Sit-Supine independent NOT MET 3. Sit-Stand independent NOT MET 4. Stand-Sit independent NOT MET 5. Bed-Chair independent NOT MET 6. Chair-Bed independent NOT MET 7. Independent gait on level surface with out an assistive device for at least 300 feet without report of pain nor dyspnea NOT MET 8. Independent stair negotiation while holding onto bilateral rails for at least 10 steps without report of pain nor dyspnea NOT MET 9. Independent with home exercise program NOT MET 10. Good static and dynamic standing balance/tolerance NOT MET Plan of Care/Treatment Plan: 1-2x/day, 7 days/week x 1 week. Plan of care has been reviewed with the [facility] PHYSICIAN providing the service under Physical Therapy direction. Initiate Physical Therapy intervention for strengthening, bed mobility, transfers, gait, stairs, balance training, use of assistive device. DISCHARGE RECOMMENDATIONS: Patient will benefit from home health PT services in order to progress mobility level using least restrictive assistive ambulatory device/using no device, assess home safety, identify additional equipment needs, and establish a functional maintenance program that will increase ability of patient to remain at home. TREATMENT CODE/TIME: 9753 0 x 35 minutes beginning at 9:14 AM. Thank you very much for this referral. Gaby Marquez PT, DPT, CLT [facility]
--- NOTE | 2018-10-28 11:26 | HOLTER_ITS ---
DATE OF DICTATION: October 28, 2018 48-HOUR STUDY Baseline rhythm sinus. Rare single PAC. No SVT or atrial fibrillation. Rare single PVC. No VT. Heart rates as low as 45-50 bpm, sinus bradycardia. No symptoms. Average heart rate 75 bpm, range 46-130 bpm.
== END 2018-10-23 14:45 | disposition home or self-care (01) | DRG 149 ==
LOC: ER 19:57 → ICU 21:00 → MS 10-23 12:11 → ICU 10-24 09:18
PROVIDERS: Admitting Provider Internal Medicine; Emergency Provider Emergency Medicine; PCP Family Medicine; Visit Provider Internal Medicine
DX: R42 Dizziness and giddiness (principal); R55 Syncope and collapse; E86.0 Dehydration; R10.31 Right lower quadrant pain; R40.4 Transient alteration of awareness; E87.6 Hypokalemia; E83.42 Hypomagnesemia; I34.0 Nonrheumatic mitral (valve) insufficiency; R94.31 Abnormal electrocardiogram [ECG] [EKG]; R00.1 Bradycardia, unspecified; X30.XXXA Exposure to excessive natural heat, initial encounter; K21.9 Gastro-esophageal reflux disease without esophagitis; F32.9 Major depressive disorder, single episode, unspecified
CPT/HCPCS: 36415; 36416; 80048; 80053; 80076; 80307; 81025; 82550; 82805; 82962; 83690; 85652; 93005; 96361; 96365; 96366; 97162; 97530; 99220; 99232; 99233; 99239; 99255; 99285; J1650; 70450; 74177; 81003; 83735; 84132; 84443; 84484; 85025; 86140; 93010; 93017; 93225; 93306; 99225; 99226; J2405; J3480; J3490

== ENCOUNTER 2018-10-27 10:07 | Outpatient (CLI) | payer MEDICAID, SELFPAY | END 2018-10-27 10:27 | PROVIDERS: PCP Family Medicine; Visit Provider Internal Medicine | DX: R55 Syncope and collapse (principal); R00.1 Bradycardia, unspecified; I34.0 Nonrheumatic mitral (valve) insufficiency | CPT/HCPCS: 93226 ==

== ENCOUNTER 2018-11-01 17:16 | Observation (INO) | payer MEDICAID, SELFPAY ==
[2018-11-01] VITALS (61 sets, daily range): BP systolic 96–123; BP diastolic 41–80; PULSE 46–76; RESP 9–25; TEMP 36.8–36.9; O2SAT 95–100
[2018-11-01 18:45] LABS: Abs Immature Grans 0.02 k/cumm (0.0-0.09); Absolute Basophil Count 0.02 k/cumm (0.0-0.2); Absolute Eosinophil Count 0.11 k/cumm (0.0-0.7); Absolute Lymphocyte Count 1.71 k/cumm (1.2-3.4); Absolute Monocyte Count 0.45 k/cumm (0.11-0.7); Basophils % 0.3; Eosinophils % 1.5; HCT 37.5 % (36.0-46.0); HGB 13.1 g/dL (12.0-15.5); Immature Grans % 0.3; Lymphocytes % 24.1; Mean Corp. HGB Concentration 34.9 g/dL (32.0-36.0); Mean Corpuscular Hemoglobin 30.5 pg (27.0-33.0); Mean Corpuscular Volume 87.4 fL (80-95); Mean Platelet Volume 11.8 fL (8.0-11.0); Monocytes % 6.3; Neutrophils % 67.5; Platelet Count 259 x1000/uL (130-400); RBC 4.29 m/cumm (4.00-5.20); RBC Distribution Width 12.8 % (11.7-14.6); White Blood Cell Count 7.11 k/cumm (4.4-10.8)
--- NOTE | 2018-11-01 18:58 | W.ED.GENAD ---
Discharge Plan Disposition Patient Disposition: [facility] INPATIENT Discharge Details Chief Complaint: Dizzy/Sync Clinical Impression: Dizziness Admit Date/Time: 11/01/18 22:35 Admit Provider: Luca Marks Attending Provider: Luca Marks Primary Care Provider: Sarah Beltrán ED Provider: Dillon Dumont Discharge Data Discharge Date/Time-TO BE ENTERED AT DEPARTURE: 11/01/18 23:18 Medical Decision Making 19:00 --43-year-old female recently admitted to the hospital for dizziness, has continued to have dizziness since discharge, worse today with feelings of presyncope and associated diaphoresis. I considered arrhythmia. ECG reviewed and interpreted by me: Sinus rhythm 69 bpm, normal axis, nondiagnostic. Patient had Holter monitor earlier this week that was nondiagnostic. Patient does seem to have some difficulty with heel hernandez and rapid alternating movements. Consider posterior circulation lesion. Plan to obtain CTA of the brain and neck. MRI is not available this evening. Plan to check screening labs including electrolytes as patient had electrode abnormalities on last admission. We will give IV fluid bolus as patient was severely dehydrated on prior admission. Consider hypovolemia. --Labs reviewed and mild hypokalemia noted. Will give potassium chloride 40 meq PO. --CT angiography of the head with and without contrast interpreted by radiology: No acute findings. CTA of the neck interpreted by radiology: No acute findings. --Patient was reassessed and continues to be unstable when attempting to ambulate per nursing. I called and spoke with the hospitalist, Dr. Marks, I discussed ED presentation and course including diagnostics, he will admit the patient for further monitoring and testing. Care transition to Dr. Marks at time of admission HPI General Mode of arrival: ambulatory. Date/Time Provider Initiated Documentation: 11/01/18 18:05. Limitations to Documentation: no limitations. Information obtained by: patient. HPI Narrative: 43-year-old female with history of asthma, GERD, depression, chronic low back pain, presents with chief complaint of dizziness. Patient notes she was at work today and suddenly felt dizzy. She had associated diaphoresis. She felt lightheaded. She had associated nausea. Symptoms were severe. No modifiers. She also notes some sensation of room spinning. Patient has no associated chest pain. No shortness of breath. She has no headache. No numbness or focal weakness. Of note, patient was seen here for similar symptoms on 10/22/2018. She was admitted to the hospital, seen by neurology and had extensive testing. She received IV fluid during that admission and was discharged home. She notes that since discharge she is been having daily dizziness. 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 Related Data Home Medications Medication Instructions Recorded Confirmed albuterol sulfate 90 mcg/actuation 2 puff IH Q6H PRN 12/05/17 11/01/18 aerosol inhaler epinephrine 0.3 mg/0.3 mL 0.3 mg IM ONCE #1 each 12/05/17 11/01/18 injection, auto-injector meclizine 25 mg tablet 25 mg PO TID PRN #30 tab 04/23/18 11/01/18 sumatriptan succinate 50 mg tablet 50 mg PO PRN #30 tab MDD 100mg 04/23/18 11/01/18 cetirizine 10 mg tablet 10 mg PO DAILY #90 tab 08/12/18 11/01/18 fluoxetine 20 mg capsule 20 mg PO DAILY #90 cap 08/12/18 11/01/18 lansoprazole 30 mg capsule,delayed 30 mg PO DAILY #90 cap 08/12/18 11/01/18 release hydroxyzine HCl 25 mg PO TID PRN PRN #30 tab 10/23/18 11/01/18 Previous Rx's Medication Instructions Recorded epinephrine 0.3 mg/0.3 mL 0.3 mg IM ONCE #1 each 12/05/17 injection, auto-injector meclizine 25 mg tablet 25 mg PO TID PRN #30 tab 04/23/18 sumatriptan succinate 50 mg tablet 50 mg PO PRN #30 tab MDD 100mg 04/23/18 cetirizine 10 mg tablet 10 mg PO DAILY #90 tab 08/12/18 fluoxetine 20 mg capsule 20 mg PO DAILY #90 cap 08/12/18 lansoprazole 30 mg capsule,delayed 30 mg PO DAILY #90 cap 08/12/18 release hydroxyzine HCl 25 mg PO TID PRN PRN #30 tab 10/23/18 Allergies Allergy/AdvReac Type Severity Reaction Status Date / Time venom-honey bee Allergy Severe Unverified 11/01/18 17:28 Sulfa (Sulfonamide Allergy HIVES Unverified 11/01/18 17:28 Antibiotics) General Stated Complaint: Dizzy/Sync MIKE: 2 Review of Systems Review of Systems All systems reviewed & are unremarkable except as noted in HPI and below Cardiovascular Denies chest pain and Denies dyspnea Respiratory Denies cough and Denies dyspnea PFSH Medical History Asthma (Chronic) Back pain (Resolved) TAMARA II (cervical intraepithelial neoplasia II) (Resolved 02/07/16) Depression (Chronic) Gastroesophageal reflux disease (Chronic) High ankle sprain of right lower extremity (Resolved) Tobacco use (Resolved 10/15/14) Vertigo (Acute) Surgical History ANAL SURGERY Dilation and curettage discectomy (~2003) Endometrial Ablation (~2009) Ligation of fallopian tube S/P endometrial ablation (Resolved) Family History Mother Hyperlipidemia Thyroid disorder Father Essential hypertension Diabetes Personal history of malignant neoplasm Heart disease Hyperlipidemia Myocardial infarction Social History Smoking/Tobacco Use Status: Former Tobacco Use Alcohol Intake: never Drug use: Never Household members: family current occupation: [employer]; [employer] in summer Do you feel safe at home: Yes Do you feel safe in your relationship?: Yes Exam Const General: cooperative and no acute distress HENMT Head: normocephalic and atraumatic Mouth: moist mucous membranes Eyes Conjunctivae: normal conjunctivae Sclera: normal sclerae EOM: EOM intact bilaterally Neck Neck: trachea midline and supple Resp Auscultation: clear to auscultation bilaterally, no rales, no rhonchi and no wheezes Cardio Jugular venous pressure: no JVD Rate: regular rate and not tachycardic Rhythm: regular rhythm Heart Sounds: murmur systolic II/ GI Palpation: soft, not firm, no guarding, no masses, not rigid and nontender Skin General skin exam: no rashes or lesions noted Neuro General: alert, awake, oriented x3 and tone normal Cranial Nerves: CN's II-XI intact bilaterally Speech: speech normal Motor: muscle tone normal throughout and strength 5/5 throughout Sensory Exam: no sensory deficits noted Coordination: [id number] test normal, [id number] test normal (difficulty with exam) and abnormal rapid alternating movement UE (slow) Extrem General: no edema Psych Appearance: grossly normal Mental Status: mental status grossly normal Course Vital Signs Respiratory Rate 9 L 11/01/18 17:14 Temperature 36.8 C 11/01/18 17:24 Temperature Source Skin 11/01/18 17:24 Pulse 50 L 11/01/18 18:31 Pulse 52 L 11/01/18 18:32 Respiratory Rate 16 11/01/18 18:32 Respiratory Effort Non-Labored 11/01/18 17:48 Respiratory Depth Normal 11/01/18 17:48 Respiratory Pattern Normal 11/01/18 17:48 Blood Pressure 107/76 11/01/18 18:31 Blood Pressure Mean 83 11/01/18 18:31 Pulse Oximetry 97 11/01/18 18:32 Oxygen Delivery Method Room Air 11/01/18 17:24 Oxygen Flow Rate 0 11/01/18 17:24 Pain Level 8 11/01/18 17:24 Lab/Test Results Lab/Test Results: Laboratory Tests Range/Units 11/01/18 17:45 WBC (4.4-10.8) k/cumm 7.11 RBC (4.00-5.20) m/cumm 4.29 Hgb (12.0-15.5) g/dL 13.1 Hct (36.0-46.0) % 37.5 MCV (80-95) fL 87.4 MCH (27.0-33.0) pg 30.5 MCHC (32.0-36.0) g/dL 34.9 RDW (11.7-14.6) % 12.8 Plt Count (130-400) x1000/uL 259 MPV (8.0-11.0) fL 11.8 H Immature Gran % 0.3 Neutrophils % 67.5 Lymphocytes % 24.1 Monocytes % 6.3 Eosinophils % 1.5 Basophils % 0.3 Absolute Neutrophils (1.2-6.7) k/cumm 4.80 Absolute Lymphocytes (1.2-3.4) k/cumm 1.71 Absolute Monocytes (0.11-0.7) k/cumm 0.45 Absolute Eosinophils (0.0-0.7) k/cumm 0.11 Absolute Basophils (0.0-0.2) k/cumm 0.02
[2018-11-01 19:01] LABS: ALT 20 U/L (12-78); AST 20 U/L (15-37); Albumin 3.3 g/dL (3.4-5.0); Alkaline Phosphatase 84 U/L (46-116); Anion Gap 8.2 mmol/L (3-11); BUN 5 mg/dL (7-18); Bilirubin, Total 0.5 mg/dL (0.2-1.0); CO2 26.8 mmol/L (21.0-32.0); CREATININE 0.87 mg/dL (0.55-1.02); Calcium 8.7 mg/dL (8.5-10.1); Chloride 107 mmol/L (98-107); Glucose 93 mg/dL (70-100); Magnesium 1.8 mg/dL (1.8-2.4); Potassium 3.2 mmol/L (3.5-5.1); Sodium 142 mmol/L (136-145); Total Protein 6.7 g/dL (6.4-8.2)
[2018-11-01 19:02] LABS: Troponin I < 0.05 ng/mL (0.00-0.06)
--- NOTE | 2018-11-01 19:22 | DI.CT_ITS ---
SYMPTOM/DIAGNOSIS: DIZZY, DIFFICULTY WITH HEEL WILLETT CTA HEAD AND NECK: CT angiography was performed with multi slice acquisition and multi planar and 3D reconstruction. There is no evidence of occlusion, dissection or significant stenosis in the neck or visualized cranial vasculature. IMPRESSION: No acute abnormality.
--- NOTE | 2018-11-01 19:45 | DI.VRAD_ITS ---
EXAM: CT Angiography Head Without And With Contrast EXAM DATE/TIME: 11/01/2018 6:34 PM CLINICAL HISTORY: 43 years old, female; Other: Dizziness, difficulty with heel hernandez TECHNIQUE: Imaging protocol: Computed tomographic angiography images of the head without and with intravenous contrast using CT angiography protocol. Coronal and sagittal reformatted images were created and reviewed. 3D rendering: MIP reconstructed images were created and reviewed. Radiation optimization: All CT scans at this facility use at least one of these dose optimization techniques: automated exposure control; mA and/or kV adjustment per patient size (includes targeted exams where dose is matched to clinical indication); or iterative reconstruction. Contrast material: [id number];Contrast volume: 85 ml;Contrast route: IV; COMPARISON: CT HEAD WO 10/19/2018 3:50 PM FINDINGS: Right internal carotid artery: Unremarkable. Intracranial segment is patent with no significant stenosis. No aneurysm. Right anterior cerebral artery: Unremarkable. No occlusion or significant stenosis. No aneurysm. Right middle cerebral artery: Unremarkable. No occlusion or significant stenosis. No aneurysm. Right posterior cerebral artery: Unremarkable. No occlusion or significant stenosis. No aneurysm. Right vertebral artery: Unremarkable. No occlusion or significant stenosis. No aneurysm. Left internal carotid artery: Unremarkable. Intracranial segment is patent with no significant stenosis. No aneurysm. Left anterior cerebral artery: Unremarkable. No occlusion or significant stenosis. No aneurysm. Left middle cerebral artery: Unremarkable. No occlusion or significant stenosis. No aneurysm. Left posterior cerebral artery: Unremarkable. No occlusion or significant stenosis. No aneurysm. Left vertebral artery: Unremarkable. No occlusion or significant stenosis. No aneurysm. Basilar artery: Unremarkable. No occlusion or significant stenosis. No aneurysm. HEAD: Brain: Unremarkable. No hemorrhage. No significant white matter disease. No edema. Ventricles: Normal. No ventriculomegaly. Bones/joints: Unremarkable. No acute fracture. Sinuses: Visualized sinuses are normal. No fluid levels. Mastoid air cells: Visualized mastoids are normal. No mastoid effusion. Soft tissues: Unremarkable. IMPRESSION: No acute findings. EXAM: CT Angiography Neck With Contrast EXAM DATE/TIME: 11/01/2018 6:34 PM CLINICAL HISTORY: 43 years old, female; Other: Dizziness, difficulty with heel hernandez TECHNIQUE: Imaging protocol: Axial computed tomographic angiography images of the neck with intravenous contrast using CT angiography protocol. Coronal and sagittal reformatted images were created and reviewed. 3D rendering: MIP reconstructed images were created and reviewed. Radiation optimization: All CT scans at this facility use at least one of these dose optimization techniques: automated exposure control; mA and/or kV adjustment per patient size (includes targeted exams where dose is matched to clinical indication); or iterative reconstruction. COMPARISON: CT HEAD WO 10/19/2018 3:50 PM FINDINGS: VASCULATURE: Right common carotid artery: Unremarkable. No stenosis. No dissection or occlusion. Right internal carotid artery: Unremarkable extracranial segment. No stenosis. No dissection or occlusion. Right external carotid artery: Unremarkable. No occlusion or stenosis of the origin. Right vertebral artery: Unremarkable. No stenosis. No dissection or occlusion. Left common carotid artery: Unremarkable. No stenosis. No dissection or occlusion. Left internal carotid artery: Unremarkable extracranial segment. No stenosis. No dissection or occlusion. Left external carotid artery: Unremarkable. No occlusion or stenosis of the origin. Left vertebral artery: Unremarkable. No stenosis. No dissection or occlusion. NECK: Bones/joints: No acute fracture. Soft tissues: Normal. No significant soft tissue swelling. IMPRESSION: No acute findings. COMMENT: Reference per NASCET criteria for degree of stenosis: Mild: less than 50% stenosis. Moderate: 50-69% stenosis. Severe: 70-94% stenosis. Near occlusion: 95-99% stenosis. Dictated and Authenticated by: Gemini Loja MD. Ordering:MACARIO Carranza MD
[2018-11-01] MEDS: Omnipaque 350 MG/ML 100 ML BTL IJ (19:56)
[2018-11-01] MEDS: Potassium Chloride 20 MEQ TABCR 40 MEQ PO (22:04)
[2018-11-01] MEDS: Normal Saline 500 ML 1000 ML IV (22:04)
--- NOTE | 2018-11-01 22:19 | NUR.NOTE ---
Nursing Note:attempted to ambulate patient, unsteady with increased dizziness, returned to bed, MD notified
--- NOTE | 2018-11-01 23:41 | W.PM.HP.N ---
Date of service: 11/01/18 Time of Service: 23:42 Assessment and Plan (1) Dizziness: Current visit: No Status: Acute unclear etiology. At different times she has reported her dizziness to be more lightheadedness and other times she reports more vertiginous symptoms. She has had negative orthostatic VS during her last admission after her dehydration was corrected. Outpatient holter failed to demonstrate any significant heart block or tachyarrhythmias. CTA of her head and neck were unremarkable. I am uncertain as to where to turn for further answers. Perhaps a tilt table test to see if she had cardiogenic syncope/inappropriate bradycardia in setting of orthostatic position changes. However today she feels dizzy all day despite having adequate BP and HR. (albeit on the low end of normal). I do not feel that we are going to get any answers over the weekend. Dr. 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 Unfortunately we do not have any telemetry beds to monitor her tonight. I will have nursing monitor her orthostatic BP and pulse. Her potassium was a little low again but has been replaced. I will repeat her BMP and magnesium levels in the a.m. History of Present Illness Chief Complaint: dizziness Narrative: 43 yr old female w/ PMH of asthma, GERD, depression, chronic LBP and DDD who presented to [facility] with recurrent complaints of dizziness. She was recently hospitalized at [facility] from 10/19/2018 through 10/23/2018 for similar complaints. However at that time she was suffering from severe dehydration d/t heat exposure while at work and had associated near syncope. Upon presentation at that time she was hypotensive and bradycardic. During this admission she had documented inappropriate bradycardia despite having been adequately rehydrated w/ iv fluids. During that admission she was also found to be hypokalemic and hypomagnesemic both which were corrected. She underwent extensive workup including telemetry monitoring that demonstrated sinus bradycardia, serial troponins that were normal, TTE that was essentially normal excpet for mild to moderate mitral regurgitation. She had vertigo symptoms that were treated w/ meclizine. She was also evaluated for complaints of abdominal pains w/ a negative CT of her abdomen. She was discharged w/ a follow up 48 hr outpatient holter that has since been reported on 10/28/2018 as demonstrating sinus rhythm w/ HR range from 46 to 130 bpm with rates as low as 45 to 50 bpm. No SVT, atrial fibrillation and no VT. No symptoms were reported. She presents today with repeated dizziness but denies vertiginous symptoms such as the room spinning. She denies any chest pain or dyspnea nor any palpitations nor any nausea or vomiting. She went to work this morning around 8 am feeling dizzy and when this persisted, her employer sent her home. Dr. Dumont performed a workup in the ER that included labs, EKG and CTA of the brain. EKG demonstrated SR at rate of 69 bpm, without ischemic changes. CTA of the brain and neck failed to show any acute findings. He felt that the person had some difficulty w/ heel to hernandez movement and rapid alternating movement of her hands, thus suggesting to him that she may have had a posterior circulatory event and thus leading to the CTA of her head and neck. He attempted to walk her but she was unsteady on her feet and did not feel comfortable going home. She is now admitted on observation status for her dizziness. She was treated w/ some iv fluids in the ER although she gives no hx of diarrhea or vomiting. Review of Systems Review of Systems All systems reviewed & are unremarkable except as noted in HPI and below PFSH Medical History Asthma (Chronic) Back pain (Resolved) TAMARA II (cervical intraepithelial neoplasia II) (Resolved 02/07/16) Depression (Chronic) Gastroesophageal reflux disease (Chronic) High ankle sprain of right lower extremity (Resolved) Tobacco use (Resolved 10/15/14) Vertigo (Acute) Surgical History ANAL SURGERY Dilation and curettage discectomy (~2003) Endometrial Ablation (~2009) Ligation of fallopian tube S/P endometrial ablation (Resolved) Family History Mother Hyperlipidemia Thyroid disorder Father Essential hypertension Diabetes Personal history of malignant neoplasm Heart disease Hyperlipidemia Myocardial infarction Social History Smoking/Tobacco Use Status: Former Tobacco Use Alcohol Intake: never Drug use: Never Household members: family current occupation: [employer]; [employer] in summer Do you feel safe at home: Yes Do you feel safe in your relationship?: Yes Meds Home Medications Medication Instructions Recorded Confirmed Type albuterol sulfate 90 mcg/actuation 2 puff IH Q6H PRN 12/05/17 11/01/18 History aerosol inhaler epinephrine 0.3 mg/0.3 mL 0.3 mg IM ONCE #1 each 12/05/17 11/01/18 Rx injection, auto-injector meclizine 25 mg tablet 25 mg PO TID PRN #30 tab 04/23/18 11/01/18 Rx sumatriptan succinate 50 mg tablet 50 mg PO PRN #30 tab MDD 100mg 04/23/18 11/01/18 Rx cetirizine 10 mg tablet 10 mg PO DAILY #90 tab 08/12/18 11/01/18 Rx fluoxetine 20 mg capsule 20 mg PO DAILY #90 cap 08/12/18 11/01/18 Rx lansoprazole 30 mg capsule,delayed 30 mg PO DAILY #90 cap 08/12/18 11/01/18 Rx release hydroxyzine HCl 25 mg PO TID PRN PRN #30 tab 10/23/18 11/01/18 Rx Allergies Allergy/AdvReac Type Severity Reaction Status Date / Time venom-honey bee Allergy Severe Unverified 11/01/18 17:28 Sulfa (Sulfonamide Allergy HIVES Unverified 11/01/18 17:28 Antibiotics) Exam Const General: cooperative, healthy appearing, comfortable, no acute distress and well groomed Nutritional Appearance: overweight Orientation: alert, awake and oriented x3 Eyes General: appearance normal, both eyes and all related structures Visual Kyle: normal visual kyle by confrontation Alignment and Position: alignment normal Periorbital: periorbital findings normal Eyelids: eyelids normal Conjunctivae: conjunctivae normal Sclera: sclerae normal Cornea: corneas normal Pupils: PERRL EOM: EOM intact bilaterally Direct ophthalmoscopy: normal light reflex Neck Neck: normal visual inspection, full ROM, no lymphadenopathy, no meningeal signs, trachea midline, supple and no JVD Carotids: normal carotid upstroke Lymphatic: no lymphadenopathy noted Resp Effort & Inspection: normal respiratory effort and able to speak in complete sentences Auscultation: clear to auscultation bilaterally Cardio Jugular venous pressure: no JVD Palpation: normal PMI Rate: regular rate Rhythm: regular rhythm Heart Sounds: S1 normal, S2 normal, normal, physiologic split S2 and no murmurs Bruits: no abdominal aortic bruits and no carotid bruits Pulses: normal peripheral pulses GI Inspection: normal to inspection and obesity Palpation: soft, no hepatosplenomegaly and nontender Percussion: normal to percussion Auscultation: normal bowel sounds Skin General skin exam: no rashes or lesions noted Neuro General: alert, awake, oriented x3 and moves all extremities Cranial Nerves: PERRL, EOM intact bilaterally, no nystagmus, facial strength normal, tongue midline, hearing normal, able to rotate head bilaterally and able to elevate shoulders bilaterally Cognition: normal cognition Speech: speech normal Motor: muscle tone normal throughout, strength 5/5 throughout, no pronator drift and no movement abnormalities noted Sensory Exam: no sensory deficits noted Plantar Reflexes: Downgoing: bilateral Coordination: [id number] test normal, rapid alternating movement UE normal and rapid alternating movement LE normal Extrem General: normal to inspection, full ROM, normal capillary refill, no joint enlargement and no clubbing, cyanosis or edema Psych Appearance: grossly normal Mental Status: mental status grossly normal Speech and Movement: speech and movement normal Mood: congruent mood Affect: normal affect Attitude: cooperative Thought Process: normal Thought Content: normal Insight: fair Judgment: fair Results Labs : 11/01/18 17:45 11/01/18 17:45 Laboratory Results - last 24 hr 11/01/18 11/01/18 17:45 17:45 WBC 7.11 RBC 4.29 Hgb 13.1 Hct 37.5 MCV 87.4 MCH 30.5 MCHC 34.9 RDW 12.8 Plt Count 259 MPV 11.8 H Immature Gran % 0.3 Neutrophils % 67.5 Lymphocytes % 24.1 Monocytes % 6.3 Eosinophils % 1.5 Basophils % 0.3 Absolute Neutrophils 4.80 Absolute Lymphocytes 1.71 Absolute Monocytes 0.45 Absolute Eosinophils 0.11 Absolute Basophils 0.02 Sodium 142 Potassium 3.2 L Chloride 107 Carbon Dioxide 26.8 Anion Gap 8.2 BUN 5 L Creatinine 0.87 Estimated GFR/1.73 m2 >= 60.00 Glucose 93 Calcium 8.7 Magnesium 1.8 Total Bilirubin 0.5 AST 20 ALT 20 Alkaline Phosphatase 84 Troponin I < 0.05 Total Protein 6.7 Albumin 3.3 L Last Vital Signs Temp 36.8 C 11/01/18 17:24 Pulse 55 L 11/01/18 23:01 Resp 16 11/01/18 23:01 BP 96/52 L 11/01/18 23:01 Pulse Ox 96 11/01/18 23:01
[2018-11-02] MEDS: Lansoprazole 30 MG CAPCR PO (01:40)
[2018-11-02] MEDS: Enoxaparin 40 MG/0.4 ML SYR SC (01:40)
[2018-11-02] MEDS: FLUoxetine 20 MG CAP PO (01:40)
[2018-11-02 06:52] LABS: Anion Gap 6.7 mmol/L (3-11); BUN 5 mg/dL (7-18); CO2 27.3 mmol/L (21.0-32.0); CREATININE 0.85 mg/dL (0.55-1.02); Calcium 8.3 mg/dL (8.5-10.1); Chloride 107 mmol/L (98-107); Glucose 100 mg/dL (70-100); Magnesium 1.9 mg/dL (1.8-2.4); Potassium 3.3 mmol/L (3.5-5.1); Sodium 141 mmol/L (136-145)
[2018-11-02 07:40] VITALS: BP 97/61; PULSE 58; RESP 18; TEMP 36.4; O2SAT 96
[2018-11-02 07:50] VITALS: BP 97/61; PULSE 58; RESP 18; TEMP 36.4; O2SAT 96
--- NOTE | 2018-11-02 08:10 | PDOC.CMIN ---
- If Service Date Differs Date of service: 11/02/18 Time of Service: 08:10 Care Management Initial Assess REASON FOR HOSPITALIZATION:: Dizziness, weakness, readmission Has patient been provided with information about the portal?: Yes Did the patient sign up for the portal?: No (already enrolled ) CODE STATUS:: Full Code
[2018-11-02] MEDS: Cetirizine 10 MG TAB PO (08:21)
[2018-11-02] MEDS: Normal Saline Flush 10 ML SYR IVP (08:21)
[2018-11-02] MEDS: Meclizine 25 MG TAB PO (08:28)
[2018-11-02 12:05] VITALS: BP 103/65; BP 97/60; BP 98/58; PULSE 59; PULSE 62; PULSE 71
--- NOTE | 2018-11-02 12:49 | W.PM.DS.N ---
Date of service: 11/02/18 Time of Service: 12:49 DS: Diagnosis Discharge Diagnosis (1) Dizziness: Status: Acute Discharge Plan Disposition Patient Disposition: HOME Condition: Stable Discharge Details Chief Complaint: Dizzy/Sync Clinical Impression: Dizziness Reason For Visit: DIZZINESS, WEAKNESS Admit Date/Time: 11/01/18 22:35 Admit Provider: Luca Marks Attending Provider: Luca Marks Primary Care Provider: Sarah Beltrán ED Provider: Dillon Dumont Hospital Course Hospital Course: Chief Complaint: Dizziness/Vertigo HPI: 43-year-old woman with a prior history significant for Vertigo and Dizziness, admitted from [facility] Emergency Department on 11/01 with a diagnosis of recurrent dizziness/Vertigo. Ms. Covarrubias has a Past Medical History significant for Asthma, GERD, DDD, Depression, and chronic LBP. She was recently admitted here with near syncope as well as a 'shaking spell' without typical seizure features and no post-ictal state while in the ED. She was found to be hypotensive and later bradycardic. While hospitalized she underwent a negative work-up for her symptoms of dizziness and vertigo, and discharged in stable and improved condition. Specifically, she had a negative infectious and cardiac work-up (See below). Imaging of her chest, head, and abdomen were negative. Neurology was consulted and deemed her near syncope as likely related to dehydration, and her episode in the Emergency Room as non-epileptic and potential psychogenic in origin. The patient presented back to the Emergency Room yesterday with reported recurrence of her dizziness and vertigo. She was admitted for further evaluation and treatment. Hospital Course: (1) Vertigo: Patient previously underwent a thorough work-up, with a near syncopal episode attributed to dehydration. She has a history of Vertigo in the past, but has also described her symptoms as involving both 'dizziness and foggy' as well as 'room spinning' - both occuring concurrently. The Patient previously underwent a cardiac work-up due to persistent bradycardia - Her EKG was unchanged and serial cardiac biomarkers were negative. Her ECHO was essentially normal (Moderate MR), orthostatics were repeatedly okay and with appropriate rise in both HR and BP, and Telemetry did not show any significant abnormalities. Her outpatient Holter was similiarly without arrhythmias and showed an average HR in the 70's, although with noted sinus bradycardia as low as 45-50. She also had no nystagmus on Araine-Hallpike by PT performed last hospitalization. On neurology evaluation her near syncope was deemed potentially on basis of dehydration, and her 'syncopal episode' in the ED was deemed as likely nonepileptic and psychogenic in nature. No further work-up was recommended, and trial of Hydroxyzine was offered. Mrs. Covarrubias's neurological abnormalities noted in the ED were not duplicated following admission. She has no focal deficits. Consideration may be given to outpatient MRI of the brain to rule out other pathology as currently MRI is not available over the weekend. However CTA of the head and neck were unremarkable, and symptoms are not typical. Current Vertigo vs. Dizziness appears chronic, mild, and require further investigation as an outpatient. Will ensure Neurology follow-up. Also consider ENT evaluation as well. (2) Bradycardia: No clear etiology for patient's low HR. Prior values in the 60-80's mostly going back to 2016, now in the 40-70's. Patient without any obvious offending agents by med review and not on mateo agents, with a normal TSH, negative troponin, and no evidence of infection on prior work-up. Patient also without evidence of tick born illness - no leukopenia, thrombocytopenia, or raised LFTs. ECHO normal. Orthostatics appropriate. Holter without significant abnormality, and with Average HR of 75. Home Meds and New Rx's Prescriptions: Continued albuterol sulfate 90 mcg/actuation HFA aerosol inhaler 2 puff IH Q6H PRNRF: 0 epinephrine 0.3 mg/0.3 mL auto-injector 0.3 mg IM ONCE Qty: 1 RF: 0 sumatriptan succinate 50 mg tablet 50 mg PO PRN MDD 100mg Qty: 30 RF: 1 meclizine 25 mg tablet 25 mg PO TID PRN (Reason: dizziness) Qty: 30 RF: 0 cetirizine [All Day Allergy (cetirizine)] 10 mg tablet 10 mg PO DAILY Qty: 90 RF: 3 fluoxetine 20 mg capsule 20 mg PO DAILY Qty: 90 RF: 3 lansoprazole 30 mg capsule,delayed release(DR/EC) 30 mg PO DAILY Qty: 90 RF: 3 hydroxyzine HCl 25 mg Tablet 25 mg PO TID PRN PRNQty: 30 RF: 0 Discharge Instructions Activity:: No strenuous activity Equipment/Supplies:: No Equipment Needed Diet:: As Tolerated Discharge Orders Discharge Orders: Discharge Order (Routine); Ordered 11/02/18 Ordered By: Lino Gonsales DS: Data Vitals/I&O Vitals and I&O: Vital Signs Temperature 36.4 C L 11/02/18 07:50 Temperature Source Tympanic 11/02/18 07:50 Pulse 59 L 11/02/18 12:05 Pulse Rhythm Regular 11/02/18 07:55 Pulse 68 11/01/18 23:01 Respiratory Rate 18 11/02/18 07:50 Respiratory Effort 11/02/18 07:55 Respiratory Depth Normal 11/02/18 07:55 Respiratory Pattern Normal 11/02/18 07:55 Blood Pressure 98/58 L 11/02/18 12:05 Blood Pressure Mean 63 11/01/18 23:01 Pulse Oximetry 96 11/02/18 07:50 Oxygen Delivery Method Room Air 11/02/18 07:50 Oxygen Flow Rate 0 11/02/18 07:50 Pain Level 0 11/02/18 07:50 Comment 11/02/18 12:05 Intake & Output 11/01/18 11/02/18 11/02/18 23:59 11:59 23:59 Intake Total 500 / 500 750 / 750 Output Total 475 / 475 Balance 500 / 500 275 / 275 Weight 77.3 kg 76.2 kg Intake: IV 500 / 500 Oral 750 / 750 Output: Urine 475 / 475 Other: Urine Color Yellow Urine Appearance Clear Voiding Methods Toilet Completed studies during hospitalization [Text1]: Exam(s) EXAM: CT Angiography Head Without And With Contrast EXAM DATE/TIME: 11/01/2018 6:34 PM CLINICAL HISTORY: 43 years old, female; Other: Dizziness, difficulty with heel hernandez TECHNIQUE: Imaging protocol: Computed tomographic angiography images of the head without and with intravenous contrast using CT angiography protocol. Coronal and sagittal reformatted images were created and reviewed. 3D rendering: MIP reconstructed images were created and reviewed. Radiation optimization: All CT scans at this facility use at least one of these dose optimization techniques: automated exposure control; mA and/or kV adjustment per patient size (includes targeted exams where dose is matched to clinical indication); or iterative reconstruction. Contrast material: [id number];Contrast volume: 85 ml;Contrast route: IV; COMPARISON: CT HEAD WO 10/19/2018 3:50 PM FINDINGS: Right internal carotid artery: Unremarkable. Intracranial segment is patent with no significant stenosis. No aneurysm. Right anterior cerebral artery: Unremarkable. No occlusion or significant stenosis. No aneurysm. Right middle cerebral artery: Unremarkable. No occlusion or significant stenosis. No aneurysm. Right posterior cerebral artery: Unremarkable. No occlusion or significant stenosis. No aneurysm. Right vertebral artery: Unremarkable. No occlusion or significant stenosis. No aneurysm. Left internal carotid artery: Unremarkable. Intracranial segment is patent with no significant stenosis. No aneurysm. Left anterior cerebral artery: Unremarkable. No occlusion or significant stenosis. No aneurysm. Left middle cerebral artery: Unremarkable. No occlusion or significant stenosis. No aneurysm. Left posterior cerebral artery: Unremarkable. No occlusion or significant stenosis. No aneurysm. Left vertebral artery: Unremarkable. No occlusion or significant stenosis. No aneurysm. Basilar artery: Unremarkable. No occlusion or significant stenosis. No aneurysm. HEAD: Brain: Unremarkable. No hemorrhage. No significant white matter disease. No edema. Ventricles: Normal. No ventriculomegaly. Bones/joints: Unremarkable. No acute fracture. Sinuses: Visualized sinuses are normal. No fluid levels. Mastoid air cells: Visualized mastoids are normal. No mastoid effusion. Soft tissues: Unremarkable. IMPRESSION: No acute findings. Labs on day of discharge: Labs from last 24 hours 11/02/18 11/01/18 11/01/18 06:08 17:45 17:45 WBC 7.11 RBC 4.29 Hgb 13.1 Hct 37.5 MCV 87.4 MCH 30.5 MCHC 34.9 RDW 12.8 Plt Count 259 MPV 11.8 H Immature Gran % 0.3 Neutrophils % 67.5 Lymphocytes % 24.1 Monocytes % 6.3 Eosinophils % 1.5 Basophils % 0.3 Absolute Neutrophils 4.80 Absolute Lymphocytes 1.71 Absolute Monocytes 0.45 Absolute Eosinophils 0.11 Absolute Basophils 0.02 Sodium 141 142 Potassium 3.3 L 3.2 L Chloride 107 107 Carbon Dioxide 27.3 26.8 Anion Gap 6.7 8.2 BUN 5 L 5 L Creatinine 0.85 0.87 Estimated GFR/1.73 m2 >= 60.00 >= 60.00 Glucose 100 93 Calcium 8.3 L 8.7 Magnesium 1.9 1.8 Total Bilirubin 0.5 AST 20 ALT 20 Alkaline Phosphatase 84 Troponin I < 0.05 Total Protein 6.7 Albumin 3.3 L PFSH Medical History Asthma (Chronic) Back pain (Resolved) TAMARA II (cervical intraepithelial neoplasia II) (Resolved 02/07/16) Depression (Chronic) Gastroesophageal reflux disease (Chronic) High ankle sprain of right lower extremity (Resolved) Tobacco use (Resolved 10/15/14) Vertigo (Acute) Surgical History ANAL SURGERY Dilation and curettage discectomy (~2003) Endometrial Ablation (~2009) Ligation of fallopian tube S/P endometrial ablation (Resolved) Family History Mother Hyperlipidemia Thyroid disorder Father Essential hypertension Diabetes Personal history of malignant neoplasm Heart disease Hyperlipidemia Myocardial infarction Social History Smoking/Tobacco Use Status: Former Tobacco Use Alcohol Intake: never Drug use: Never Household members: family current occupation: [employer]; [employer] in summer Do you feel safe at home: Yes Do you feel safe in your relationship?: Yes
--- NOTE | 2018-11-02 14:36 | PT.INIE ---
Date of service: 11/02/18 Time of Service: 13:49 PT Notes Inpatient Physical Therapy Evaluation Date: 11/02/2018 Referring Doctor: Luca Marks MD PT Orders: PT CONSULT: Evaluate and treat dizziness, gait imbalance Precautions: Fall. Standard. Patient Profile/Admitting Diagnosis: Patient is a 43-year-old lady who presented to the ED on 11/01/2018 with chief complaints of dizziness. She received skilled PT services and received testing for BPPV with inconclusive result on 10/22/2018 and 10/23/2018. She was diagnosed with dizziness with etiology still unknown at this time. PMHX: Medical History Asthma (Chronic) Back pain (Resolved) TAMARA II (cervical intraepithelial neoplasia II) (Resolved 02/07/16) Depression (Chronic) Gastroesophageal reflux disease (Chronic) High ankle sprain of right lower extremity (Resolved) Tobacco use (Resolved 10/15/14) Vertigo (Acute) Surgical History ANAL SURGERY Dilation and curettage discectomy (~2003) Endometrial Ablation (~2009) Ligation of fallopian tube S/P endometrial ablation (Resolved) S/P endometrial ablation (Resolved) Social History/Home Situation: Patient lives with mother in her mother's mobilie home with three steps to enter and a rail on the right going up. She states that she has been taking care of her mother but has [facility] staff come in to help her on days that that she would go to [employer] to work. She reports that she has 5 grown children who all ave been living on their own. 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 Current Functional Limitations: Limited and impaired mobility performance due to reports of dizziness Equipment Owned/DME: FWW Subjective: Patient is agreeable with PT eval and treatment today. Patient reports just being lightheaded at time of evaluation with no nausea and dry heaving as opposed to her last admission at this hospital. She hospital discharge, she received states that she been working 12 to 13 hours at [employer]. She denies nausea, numbness, headache, and chest pain throughout PT session. She states that she has been using her walker at home but not at work as she is not allowed to bring her walker at work. Objective: General Observation: Patient seen resting in bed, in no apparent distress. Mental Status: Alert and oriented x 4 Pain: 0/10 ROM: Right Upper Extremity: Shoulder Flexion WFL. Shoulder abduction WFL. Elbow flexion WFL. Wrist flexion WFL. Functional opening and closing of hand WFL. Left Upper Extremity: Shoulder Flexion WFL. Shoulder abduction WFL. Elbow flexion WFL. Wrist flexion WFL. Functional opening and closing of hand WFL. Right Lower Extremity: Hip flexion WFL. Hip abduction WFL. Knee flexion WFL. Ankle dorsiflexion WFL. Ankle plantarflexion WFL. Left Lower Extremity: Hip flexion WFL. Hip abduction WFL. Knee flexion WFL. Ankle dorsiflexion WFL. Ankle plantarflexion WFL. Strength: Right Upper Extremity: Shoulder flexors 5/5. Shoulder abductors 5/5. Elbow flexors 5/5. Elbow extensors 5/5. Photographer'S Assistant strong. Left Upper Extremity: Shoulder flexors 5/5. Shoulder abductors 5/5. Elbow flexors 5/5. Elbow extensors 5/5. Photographer'S Assistant strong. Right Lower Extremity: Hip flexors 5/5. Hip abductors 5/5. Knee flexors 5/5. Knee extensors 5/5. Ankle dorsiflexors 5/5. Ankle plantarflexors 5/5. Left Lower Extremity:Hip flexors 5/5. Hip abductors 5/5. Knee flexors 5/5. Knee extensors 5/5. Ankle dorsiflexors 5/5. Ankle plantarflexors 5/5. Sensation: Intact as to pain and pressure on bilateral lower extremities. Bed Mobility/Transfers: Rolling independent Supine to sit independent Sit to supine independent Sit to stand independent Stand to sit independent Bed to chair independent Chair to bed independent Gait: Patient was able to tolerate level surface ambulation of about 150 feet using FWW with CGA of this PT with 2 episodes of instability observed as patient is seen swaying abruptly backward and to the side but was able to recover without significant LOB. Patient needed to be wheeled back to room as she states that she felt significantly lightheaded. Balance: Static Sitting: Good Dynamic Sitting: Good Static Standing: Fair Dynamic Standing: Fair Special Tests: Mobility Limitations Standardized Measure [facility] 6 clicks Basic Mobility Inpatient Short Form: Raw Score: 18 CMS Score: 47% deficit VERTIGO TESTING: Patient reported increased lightheadedness with vertebral artery testing on the R side. Vestibuloocular reflex intact with patient reporting increased symptom of lightheadedness with head movement to the right side only. The [place]-Hallpike maneuver produced no nystagmus when tested on both sides although patient continued to complain of same lightheadedness when turned to the R, not so much to the left. This was the opposite finding from previous test done on 10/22/2018 and 10/23/2018. Findings for BPPV remain inconclusive at this time. 4-stage Balance test: Patient was able to perform position 1 ( standing with feet together) for 10 seconds but was unable to sustain semi-tandem, full tandem, and one-legged standing due to instability and report of lightheadedness. Romberg Test: Test was positive with patient demonstrating increased body sway, sidestepping to L, and LOB. Informed Consent/Education: Patient instructed in purpose of PT consult and plan of care. Assessment: Patient is a 43-year-old lady who presented to the ED on 10/19/2018 with near syncopal episode as well as shaking and confusion upon MD arrival into her while at ED. Patient presents with clinical signs and symptoms consistent with current/admitting diagnoses that have resulted to mobility limitations, gait instability, and impairment of motor control as demonstrated by the following impairment level findings: 1. Lightheadedness exacerbated by head movements, positional change, and walking distances beyond 150 feet 2. Impaired standing balance 3. Impaired activity tolerance Impairments are contributing to the following functional limitations: 1. Inability to safely ambulate without assistive device and physical assistance 2. Increase completion time for mobility ADL performance 3. Increased fall risk 4. Inability to negotiate steps alone safely Patient is assessed as a 12007 moderate complexity based on the following: History: Patient is a 43-year-old lady who presented to the ED on 11/01/2018 with chief complaints of dizziness. She received skilled PT services and received testing for BPPV with inconclusive result on 10/22/2018 and 10/23/2018. She was diagnosed with dizziness with etiology still unknown at this time. Examination: Demonstrable impairment in balance with underlying impairments and functional limitations as documented above Presentation:Evolving Decision Makin moderate complexity Goals: Goals X1 week 1. Independent gait on level surface with out an assistive device for at least 300 feet without report of pain nor dyspnea 2. Independent stair negotiation while holding onto bilateral rails for at least 10 steps without report of pain nor dyspnea 3. Independent with home exercise program 4. Good static and dynamic standing balance/tolerance Plan of Care/Treatment Plan: 1-2x/day, 7 days/week x 1 week. Plan of care has been reviewed with the BIODIESEL ENGINE SPECIALIST providing the service under Physical Therapy direction. Initiate Physical Therapy intervention for strengthening, bed mobility, transfers, gait, stairs, balance training, use of assistive device. DISCHARGE RECOMMENDATIONS: Home with FWW. TREATMENT CODE/TIME: 88472 x 30 minutes, 33793 x 27 minutes beginning 13:49 PM. Thank you very much for this referral. Gaby Marquez PT, DPT, CLT [facility]
--- NOTE | 2018-11-04 08:44 | PT.INDS ---
Date of service: 11/04/18 PT Notes Inpatient Physical Therapy Discharge Summary Dates: 11/04/2018 Dates of Service: 11/02/2018 only Referring Doctor: Luca Marks MD PT Orders: PT CONSULT: Evaluate and treat dizziness, gait imbalance Precautions: Fall. Standard. Patient Profile/Admitting Diagnosis: Patient is a 43-year-old lady who presented to the ED on 11/01/2018 with chief complaints of dizziness. She received skilled PT services and received testing for BPPV with inconclusive result on 10/22/2018 and 10/23/2018. She was diagnosed with dizziness with etiology still unknown at this time. PMHX: Medical History Asthma (Chronic) Back pain (Resolved) TAMARA II (cervical intraepithelial neoplasia II) (Resolved 02/07/16) Depression (Chronic) Gastroesophageal reflux disease (Chronic) High ankle sprain of right lower extremity (Resolved) Tobacco use (Resolved 10/15/14) Vertigo (Acute) Surgical History ANAL SURGERY Dilation and curettage discectomy (~2003) Endometrial Ablation (~2009) Ligation of fallopian tube S/P endometrial ablation (Resolved) S/P endometrial ablation (Resolved) Social History/Home Situation: Patient lives with mother in her mother's mobilie home with three steps to enter and a rail on the right going up. She states that she has been taking care of her mother but has [facility] staff come in to help her on days that that she would go to [facility] to work. She reports that she has 5 grown children who all ave been living on their own. 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 Current Functional Limitations: Limited and impaired mobility performance due to reports of dizziness Equipment Owned/DME: FWW Subjective: Patient is agreeable with PT eval and treatment today. Patient reports just being lightheaded at time of evaluation with no nausea and dry heaving as opposed to her last admission at this hospital. She hospital discharge, she received states that she been working 12 to 13 hours at [facility] [employer] [facility] [facility]. She denies nausea, numbness, headache, and chest pain throughout PT session. She states that she has been using her walker at home but not at work as she is not allowed to bring her walker at work. Objective: General Observation: Patient seen resting in bed, in no apparent distress. Mental Status: Alert and oriented x 4 Pain: 0/10 ROM: Right Upper Extremity: Shoulder Flexion WFL. Shoulder abduction WFL. Elbow flexion WFL. Wrist flexion WFL. Functional opening and closing of hand WFL. Left Upper Extremity: Shoulder Flexion WFL. Shoulder abduction WFL. Elbow flexion WFL. Wrist flexion WFL. Functional opening and closing of hand WFL. Right Lower Extremity: Hip flexion WFL. Hip abduction WFL. Knee flexion WFL. Ankle dorsiflexion WFL. Ankle plantarflexion WFL. Left Lower Extremity: Hip flexion WFL. Hip abduction WFL. Knee flexion WFL. Ankle dorsiflexion WFL. Ankle plantarflexion WFL. Strength: Right Upper Extremity: Shoulder flexors 5/5. Shoulder abductors 5/5. Elbow flexors 5/5. Elbow extensors 5/5. Sales Representative [employer] strong. Left Upper Extremity: Shoulder flexors 5/5. Shoulder abductors 5/5. Elbow flexors 5/5. Elbow extensors 5/5. Sales Representative [employer] strong. Right Lower Extremity: Hip flexors 5/5. Hip abductors 5/5. Knee flexors 5/5. Knee extensors 5/5. Ankle dorsiflexors 5/5. Ankle plantarflexors 5/5. Left Lower Extremity:Hip flexors 5/5. Hip abductors 5/5. Knee flexors 5/5. Knee extensors 5/5. Ankle dorsiflexors 5/5. Ankle plantarflexors 5/5. Sensation: Intact as to pain and pressure on bilateral lower extremities. Bed Mobility/Transfers: Rolling independent Supine to sit independent Sit to supine independent Sit to stand independent Stand to sit independent Bed to chair independent Chair to bed independent Gait: Patient was able to tolerate level surface ambulation of about 150 feet using FWW with CGA of this PT with 2 episodes of instability observed as patient is seen swaying abruptly backward and to the side but was able to recover without significant LOB. Patient needed to be wheeled back to room as she states that she felt significantly lightheaded. Balance: Static Sitting: Good Dynamic Sitting: Good Static Standing: Fair Dynamic Standing: Fair Special Tests: Mobility Limitations Standardized Measure [facility] 6 clicks Basic Mobility Inpatient Short Form: Raw Score: 18 CMS Score: 47% deficit VERTIGO TESTING: Patient reported increased lightheadedness with vertebral artery testing on the R side. Vestibuloocular reflex intact with patient reporting increased symptom of lightheadedness with head movement to the right side only. The [place]-Hallpike maneuver produced no nystagmus when tested on both sides although patient continued to complain of same lightheadedness when turned to the R, not so much to the left. This was the opposite finding from previous test done on 10/22/2018 and 10/23/2018. Findings for BPPV remain inconclusive at this time. 4-stage Balance test: Patient was able to perform position 1 ( standing with feet together) for 10 seconds but was unable to sustain semi-tandem, full tandem, and one-legged standing due to instability and report of lightheadedness. Romberg Test: Test was positive with patient demonstrating increased body sway, sidestepping to L, and LOB. Assessment: Patient is a 43-year-old lady who presented to the ED on 10/19/2018 with near syncopal episode as well as shaking and confusion upon MD arrival into her while at ED. Patient presents with clinical signs and symptoms consistent with current/admitting diagnoses that have resulted to mobility limitations, gait instability, and impairment of motor control as demonstrated by the following impairment level findings: 1. Lightheadedness exacerbated by head movements, positional change, and walking distances beyond 150 feet 2. Impaired standing balance 3. Impaired activity tolerance Impairments are contributing to the following functional limitations: 1. Inability to safely ambulate without assistive device and physical assistance 2. Increase completion time for mobility ADL performance 3. Increased fall risk 4. Inability to negotiate steps alone safely Goals: Goals X1 week 1. Independent gait on level surface with out an assistive device for at least 300 feet without report of pain nor dyspnea 2. Independent stair negotiation while holding onto bilateral rails for at least 10 steps without report of pain nor dyspnea 3. Independent with home exercise program 4. Good static and dynamic standing balance/tolerance DISCHARGE RECOMMENDATIONS: Patient will benefit from home health PT services in order to progress mobility level using least restrictive assistive ambulatory device/using no device, assess home safety, identify additional equipment needs, and establish a functional maintenance program that will increase ability of patient to remain at home. TREATMENT CODE/TIME: NC. Thank you very much for this referral. Gaby Marquez PT, DPT, CLT [facility]
== END 2018-11-02 15:58 | disposition home or self-care (01) ==
LOC: ER 22:39 → MS 23:17
PROVIDERS: Admitting Provider Internal Medicine; Emergency Provider Student in an Organized Health Care Education/Training Program; PCP Family Medicine; Visit Provider Internal Medicine
DX: R42 Dizziness and giddiness (principal); R00.1 Bradycardia, unspecified; K21.9 Gastro-esophageal reflux disease without esophagitis; F32.9 Major depressive disorder, single episode, unspecified; E87.6 Hypokalemia
CPT/HCPCS: 36415; 70496; 70498; 80048; 80053; 93005; 96360; 97162; 97530; 99217; 99220; 99285; J1650; 83735; 84484; 85025; 93010; G0378; J3490

== ENCOUNTER 2018-12-25 16:12 | Inpatient (IN) | payer MEDICAID, SELFPAY ==
[2018-12-25] VITALS (53 sets, daily range): BP systolic 69–121; BP diastolic 52–83; PULSE 47–83; RESP 13–22; TEMP 36.6–37.1; O2SAT 94–99
--- NOTE | 2018-12-25 17:02 | ED.GENADUL_ITS ---
Discharge Plan Disposition Patient Disposition: [facility] INPATIENT Condition: Fair Discharge Details Chief Complaint: GenMedical Clinical Impression: Syncope Primary Care Provider: Sarah Beltrán ED Provider: Ailyn Peraza Home Meds and New Rx's Prescriptions: No Action albuterol sulfate 90 mcg/actuation HFA aerosol inhaler 2 puff IH Q6H PRNRF: 0 epinephrine 0.3 mg/0.3 mL auto-injector 0.3 mg IM ONCE Qty: 1 RF: 0 sumatriptan succinate 50 mg tablet 50 mg PO PRN MDD 100mg Qty: 30 RF: 1 meclizine 25 mg tablet 25 mg PO TID PRN (Reason: dizziness) Qty: 30 RF: 0 cetirizine [All Day Allergy (cetirizine)] 10 mg tablet 10 mg PO DAILY Qty: 90 RF: 3 fluoxetine 20 mg capsule 20 mg PO DAILY Qty: 90 RF: 3 lansoprazole 30 mg capsule,delayed release(DR/EC) 30 mg PO DAILY Qty: 90 RF: 3 Medical Decision Making This is a 43-year-old patient that presents for a syncopal episode preceded by mild diaphoresis and dizziness. Syncopal episode occurred while she was eating. Patient reports a very similar presentation when admitted to the emergency room in September. Patient ultimately underwent extensive work-up which did not reveal an etiology for her syncopal episode and persistent dizziness. Patient's initial lab evaluation ordered, IV fluid provided as she clinically appeared mildly dry. Dizziness persisted at initial evaluation. Patient remains persistently dizzy on orthostatic vital signs. Patient's laying blood pressure is 94/56 with a heart rate of 56. Patient standing blood pressure is 105/67 heart rate of 74 during which patient became dizzy. Despite receiving IV fluid patient remains dizzy. Given patient's syncopal episode prior to arrival persistent dizziness mild hypotension noted and orthostasis noted on exam I feel it is appropriate to admit this patient at this time for further evaluation of her syncopal episode and orthostasis. Patient does prefer admission to the hospital at this time Lab results reviewed. No evidence of leukocytosis. Patient is chemistries without significant or explainable abnormality for her dizziness. Patient's urine unremarkable for infection. Troponin negative. EKG reviewed with Dr. Wan. Holden is normal, rate is regular, 61. No evidence of ischemic changes. No evidence of Brugada, WPW or HOCM. Patient does have abdominal pain on exam. Specifically right upper quadrant and right lower quadrant pain. Patient has had admissions to the hospital for very similar presentation and symptoms and had a very thorough evaluation of her right abdominal pain including CT and ultrasound which did not reveal any acute abnormalities. I discussed this with the patient. She does feel this is very similar nature to her previous presentation. After IV fluid the pain is somewhat improved. She does have mild persistence of abdominal discomfort however again after discussion we do not feel it is reasonable to reimage at this time rather to follow in the hospital over serial exams. Discussed with the hospitalist Dr. Epps, who accepts patient for admission does request repeat for an 8-hour troponins as well as a d-dimer be added to the lab work. HPI General Date/Time Provider Initiated Documentation: 12/25/18 16:28 . HPI Narrative: Patient presents for syncopal episode while eating at the diner. Patient reports while eating holding a cup of water in her hand she became dizzy, clammy and passed out.. Temporary syncopal episode she was accompanied by her brother who witnessed her episode. Patient reports she has had nausea and dry heaving in the last 24 hours in conjunction with right-sided abdominal discomfort which she has experienced for the last 1 to 2 weeks. Patient reports a very similar episode resulting with similar symptoms right-sided abdominal pain and syncopal episode ultimately evaluated in the emergency room noted to be hypotensive and dehydrated. Patient underwent a hospital course was admitted for 4 days. Had imaging studies of her abdomen including both ultrasound and CT which were unremarkable for acute findings. Patient denies fever, chills at this time. Denies upper respiratory symptoms. Denies active chest pain. No back pain. Patient reports a migraine over the weekend, typical, entirely resolved and no headache at this time. Related Data Home Medications Medication Instructions Recorded Confirmed albuterol sulfate 90 mcg/actuation 2 puff IH Q6H PRN 12/05/17 12/25/18 aerosol inhaler epinephrine 0.3 mg/0.3 mL 0.3 mg IM ONCE #1 each 12/05/17 12/25/18 injection, auto-injector meclizine 25 mg tablet 25 mg PO TID PRN #30 tab 04/23/18 12/25/18 sumatriptan succinate 50 mg tablet 50 mg PO PRN #30 tab MDD 100mg 04/23/18 12/25/18 cetirizine 10 mg tablet 10 mg PO DAILY #90 tab 08/12/18 12/25/18 fluoxetine 20 mg capsule 20 mg PO DAILY #90 cap 08/12/18 12/25/18 lansoprazole 30 mg capsule,delayed 30 mg PO DAILY #90 cap 08/12/18 12/25/18 release Previous Rx's Medication Instructions Recorded epinephrine 0.3 mg/0.3 mL 0.3 mg IM ONCE #1 each 12/05/17 injection, auto-injector meclizine 25 mg tablet 25 mg PO TID PRN #30 tab 04/23/18 sumatriptan succinate 50 mg tablet 50 mg PO PRN #30 tab MDD 100mg 04/23/18 cetirizine 10 mg tablet 10 mg PO DAILY #90 tab 08/12/18 fluoxetine 20 mg capsule 20 mg PO DAILY #90 cap 08/12/18 lansoprazole 30 mg capsule,delayed 30 mg PO DAILY #90 cap 08/12/18 release Allergies Allergy/AdvReac Type Severity Reaction Status Date / Time venom-honey bee Allergy Severe Unverified 12/25/18 16:31 Sulfa (Sulfonamide Allergy HIVES Unverified 12/25/18 16:31 Antibiotics) General Stated Complaint: GenMedical MIKE: 3 Review of Systems Review of Systems ROS Unobtainable: All systems reviewed & are unremarkable except as noted in HPI and below Respiratory Respiratory: Denies chest congestion, Denies pain with cough and Reports wheezing Gastrointestinal Gastrointestinal: Reports as per HPI, Reports abdominal pain, Denies bloating, Denies change in bowel habits, Denies diarrhea, Reports nausea and Denies vomiting Genitourinary Genitourinary: Denies abnormal vaginal bleeding, Denies hematuria, Reports urinary frequency and Denies flank pain Allergic/Immunologic Allergic/Immunologic: Reports wheezing [facility] Medical History Acne (Inactive 04/21/13) Asthma (Chronic) Back pain (Resolved) Taking prednisone 60mg QD for 4 days. Currently on day 2. Not feeling it is making much of a difference but she was encouraged to take for the full 4 days. Also suggested she take the muscle relaxer only PRN as it makes her quite drowsy. Encouraged to take at night. To help with rest. Other vlaenzuela, suggested she increse Aleve to AM & PM dose, then supplement with 1000mg Acetaminophen every 4-6 hours up to a total of 4000mg/day. Suggested ice might help more than heat but either should be limited to only 20 minutes at a time. Use topicals (Solopas Gel or Aspercreame with Lidocaine seem to be quite helpful. Try to avoid sitting or standing still for prolonged periods of time. Walking on flat ground is encourage. TAMARA II (cervical intraepithelial neoplasia II) (Resolved 02/07/16) (-)ECC; two areas on ectocervix (+)CIN2 s/p hyst Depression (Chronic) Takes Fluoxetine 20mg QD with good impact on her depression, denies any SI. Encouraged to continue. to try to tame a hoiurde. Gastroesophageal reflux disease (Chronic) Gestational diabetes mellitus (Inactive) High ankle sprain of right lower extremity (Resolved) Tobacco use (Resolved 10/15/14) quit 01/2016 Vertigo (Acute) Surgical History ANAL SURGERY surgical drainage of anal fissure Dilation and curettage X 2 with losses discectomy (~2003) Endometrial Ablation (~2009) History of bilateral ligation of fallopian tubes (Inactive) History of discectomy (Inactive) Ligation of fallopian tube S/P endometrial ablation (Resolved) irregular bleeding has restarted, neg EM bx 01/2016 Status post dilation and curettage (Resolved) Family History Mother Hyperlipidemia Thyroid disorder Father Essential hypertension Diabetes Personal history of malignant neoplasm prostate Heart disease Hyperlipidemia Myocardial infarction Social History Smoking/Tobacco Use Status: Former Tobacco Use Quit Date: 12/15/15 Alcohol Intake: never Drug use: Never Household members: family and other Details: Lives with demented mother and her brother current occupation: [employer]; [employer] in summer Do you feel safe at home: Yes Additional Social history: 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 Alert and alert. HENMT: Head nomocephalic, normal to inspection. Atraumatic. Hearing grossly normal. Dry oral mucous membranes EYES: General normal appearance. Alignment normal. Eyelids normal. Conjunctiva normal. NECK: Normal visual inspection. FROM. Trachea midline. No Midline tenderness. CHEST: Normal insepection of the chest. RESP: Normal respiratory effort. Speaking full sentences. No cough. No audible wheezing. No retractions. CARDIO: No JVD. Regular rate and rhythm, no rubs MUSCULOSKELETAL: Normal Gait. FROM of all extremities. No swelling of the lower extremities bilaterally. SKIN: Normal. Dry. No rashes. NEURO: Alert and awake. Speech clear. PSYCH: Normal affect. Cooperative. Course Vital Signs Vital signs: Vital Signs Temperature 36.6 C 12/25/18 16:27 Pulse 60 12/25/18 16:27 Respiratory Rate 15 12/25/18 16:27 Blood Pressure 112/57 L 12/25/18 16:27 Pulse Oximetry 95 12/25/18 16:27 Temperature 36.6 C 12/25/18 16:27 Temperature Source Skin 12/25/18 16:27 Pulse 60 12/25/18 16:27 Respiratory Rate 15 12/25/18 16:27 Respiratory Effort Non-Labored 12/25/18 16:33 Respiratory Depth Normal 12/25/18 16:33 Respiratory Pattern Normal 12/25/18 16:33 Blood Pressure 112/57 L 12/25/18 16:27 Blood Pressure Position Sitting 12/25/18 16:27 Pulse Oximetry 95 12/25/18 16:27 Oxygen Delivery Method Room Air 12/25/18 16:27 Oxygen Flow Rate 0 12/25/18 16:27 Pain Level 7 12/25/18 16:27
[2018-12-25] MEDS: Normal Saline 1,000 ML 1000 ML IV ×2 (17:49→22:05)
[2018-12-25 17:55] LABS: Abs Immature Grans 0.01 k/cumm (0.0-0.09); Absolute Basophil Count 0.01 k/cumm (0.0-0.2); Absolute Lymphocyte Count 1.85 k/cumm (1.2-3.4); Absolute Monocyte Count 0.52 k/cumm (0.11-0.7); Absolute Neutrophil Count 4.63 k/cumm (1.2-6.7); Basophils % 0.1; Eosinophils % 1.4; HCT 36.9 % (36.0-46.0); HGB 12.7 g/dL (12.0-15.5); Immature Grans % 0.1; Mean Corp. HGB Concentration 34.4 g/dL (32.0-36.0); Mean Corpuscular Hemoglobin 30.3 pg (27.0-33.0); Mean Corpuscular Volume 88.1 fL (80-95); Mean Platelet Volume 11.7 fL (8.0-11.0); Monocytes % 7.3; Neutrophils % 65.1; Platelet Count 233 x1000/uL (130-400); RBC 4.19 m/cumm (4.00-5.20); RBC Distribution Width 12.7 % (11.7-14.6); White Blood Cell Count 7.12 k/cumm (4.4-10.8)
[2018-12-25] MEDS: Ondansetron 4 MG/2 ML VIAL IVP (18:06)
[2018-12-25 18:08] LABS: ALT 21 U/L (14-59); AST 21 U/L (15-37); Albumin 3.2 g/dL (3.4-5.0); Alkaline Phosphatase 91 U/L (46-116); Anion Gap 6.8 mmol/L (3-11); BUN 9 mg/dL (7-18); Bilirubin, Total 0.3 mg/dL (0.2-1.0); CO2 27.2 mmol/L (21.0-32.0); Calcium 8.4 mg/dL (8.5-10.1); Chloride 107 mmol/L (98-107); Glucose 124 mg/dL (70-100); Lipase 243 U/L (73-393); Potassium 3.2 mmol/L (3.5-5.1); Sodium 141 mmol/L (136-145); Total Protein 6.3 g/dL (6.4-8.2)
[2018-12-25 18:11] LABS: Troponin I < 0.05 ng/mL (0.00-0.06)
[2018-12-25 18:17] LABS: HCG Qual (Serum) Negative
[2018-12-25 19:05] LABS: Bilirubin Negative (Negative); Blood Negative (Negative); Clarity Clear (Clear); Glucose Negative (Negative); Ketones Negative (Negative); Leukocyte Esterase Negative (Negative); Nitrite Negative (Negative); Specific Gravity 1.015 (1.005-1.025)
--- NOTE | 2018-12-25 21:03 | NUR.NOTE ---
Nursing Note: Assumed care of pt. Lying in bed in NAD. Reports sudden onset dizziness/lightheadedness this afternoon, 10/10 on arrival, improved to 7/10 currently. +nausea. Denies CP/SOB. Denies pain.
--- NOTE | 2018-12-25 22:19 | NUR.NOTE ---
Nursing Note: Orthostatic signs as documented, HOLLY Peraza aware. Pt reports feeling unsteady on feet when standing, swaying. NS infusing a/o. Provided with latasha reece.
[2018-12-25 23:09] LABS: Troponin I < 0.05 ng/mL (0.00-0.06)
[2018-12-25 23:13] LABS: D-Dimer 262 ng/mlFEU (<500)
--- NOTE | 2018-12-25 23:35 | W.PM.HP.N ---
Date of service: 12/25/18 Time of Service: 23:35 Assessment and Plan Assessment and plan (1) Nonspecific paroxysmal spell: Status: Acute Assessment and plan: Near syncopal spell of uncertain origin. She comes in with a relatively low heart rate in the 60s. She is orthostatic. Her blood pressure response to IV fluids. She is symptomatic with dizziness. Once again the etiology could be dehydration. Her renal function is normal with a BUN of 9. Nonetheless she is responsive to IV fluids. We will continue with IV fluids, potassium supplementation, recheck her labs and vital signs in the a.m. Etiology is unclear at this time. 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 (2) Dizziness: Status: Acute Assessment and plan: No clear etiology for her dizziness. She did not tolerate the [place] Hallpike maneuver in the past. There could be some vestibular dysfunction. We will ask physical therapy to see her for vestibular exercises. (3) Depression: Status: Chronic Assessment and plan: She is on fluoxetine. Given there is a concern of a possible psychogenic cause to some of her symptoms cannot fully rule out conversion disorder. (4) Bradycardia: Status: Acute Assessment and plan: She does run a low heart rate. She takes certrazine and fluoxetine. She is not on any medications that should lower her heart rate. Will monitor on telemetry. (5) Hypokalemia: Status: Acute Assessment and plan: Potassium slightly low at 3.2. Will have on IV fluids with potassium supplementation. (6) Right lower quadrant abdominal pain: Status: Acute Assessment and plan: Exam is really quite benign. She had imaging done last month. We will hold on further imaging at this time and monitor her symptoms. This right lower quadrant pain is intermittent. She has had a hysterectomy but believes one ovary was kept. (7) Orthostatic hypotension: Status: Acute Assessment and plan: Will continue on some IV fluids and recheck orthostatic vital signs in the a.m. History of Present Illness History of Present Illness Chief Complaint: Orthostatic hypotension/near syncope Narrative: This is a 43-year-old woman who was having lunch at the [employer] diner with her brother when she suddenly slumped and dropped her drink. She was brought immediately to the emergency room. It is not clear that she completely lost consciousness. She thinks she may have had some shaking during the episode. Since arrival she has been complaining of some right lower quadrant pain and dizziness. Work-up in the emergency room revealed orthostatic hypotension, potassium 3.2, hCG negative, troponin negative. Her EKG showed a heart rate of [address] to T changes. She is admitted to observation status for further monitoring. This is her third [facility] admission for similar symptoms. She was admitted September 2018, October 2018, and now. She has had an extensive work-up including neurology consultation and head CT scans. Also negative Holter monitor. Review of Systems Review of Systems ROS Unobtainable: All systems reviewed & are unremarkable except as noted in HPI and below Constitutional Constitutional: Denies excessive sweating, Denies frequent falls, Reports headache(s) (Occasional migraine) and Denies weight loss Eyes Eyes: Reports system reviewed and no additional complaints, except as docu ENT Ears, Nose, Mouth, and Throat: Reports dizziness, Reports headache(s) (Occasional migraine) and Denies throat swelling Cardiovascular Cardiovascular: Denies chest pain, Reports syncope, Denies edema, Denies dyspnea, Denies dyspnea on exertion and Denies orthopnea Respiratory Respiratory: Denies change in phlegm color, Denies cough, Denies excessive phlegm production, Denies dyspnea and Denies dyspnea on exertion Gastrointestinal Gastrointestinal: Reports abdominal pain (Right lower quadrant (recurrent)), Denies diarrhea, Denies nausea and Denies vomiting Genitourinary Genitourinary: Denies urinary frequency and Denies urinary incontinence Musculoskeletal Musculoskeletal: Denies back pain and Denies deformity Integumentary/Breasts Skin/Breast: Denies rash, Denies sores and Denies wounds Neurologic Neurologic: Denies confusion, Reports dizziness, Reports syncope, Denies frequent falls, Reports headache(s) (Occasional migraine), Denies focal weakness, Reports seizure-like activity and Denies sensory deficit Psychiatric Psychiatric: Denies confusion, Denies depression and Denies suicidal ideation Endocrine Endocrine: Denies cold intolerance and Denies excessive sweating Hematologic/Lymphatic Hematologic/Lymphatic: Denies easy bleeding and Denies easy bruising Allergic/Immunologic Allergic/Immunologic: Denies urticaria and Denies throat swelling [facility] Medical History (Updated 12/25/18 @ 23:50 by Chadwick Epps MD) Acne (Inactive 04/21/13) Asthma (Chronic) Back pain (Resolved) Taking prednisone 60mg QD for 4 days. Currently on day 2. Not feeling it is making much of a difference but she was encouraged to take for the full 4 days. Also suggested she take the muscle relaxer only PRN as it makes her quite drowsy. Encouraged to take at night. To help with rest. Other valenzuela, suggested she increse Aleve to AM & PM dose, then supplement with 1000mg Acetaminophen every 4-6 hours up to a total of 4000mg/day. Suggested ice might help more than heat but either should be limited to only 20 minutes at a time. Use topicals (Solopas Gel or Aspercreame with Lidocaine seem to be quite helpful. Try to avoid sitting or standing still for prolonged periods of time. Walking on flat ground is encourage. TAMARA II (cervical intraepithelial neoplasia II) (Resolved 02/07/16) (-)ECC; two areas on ectocervix (+)CIN2 s/p hyst Depression (Chronic) Takes Fluoxetine 20mg QD with good impact on her depression, denies any SI. Encouraged to continue. to try to tame a hoiurde. Gastroesophageal reflux disease (Chronic) Gestational diabetes mellitus (Inactive) High ankle sprain of right lower extremity (Resolved) Tobacco use (Resolved 10/15/14) quit 01/2016 Vertigo (Acute) Surgical History (Updated 12/25/18 @ 23:42 by Chadwick Epps MD) ANAL SURGERY surgical drainage of anal fissure Dilation and curettage X 2 with losses discectomy (~2003) Endometrial Ablation (~2009) History of bilateral ligation of fallopian tubes (Inactive) History of discectomy (Inactive) Ligation of fallopian tube S/P endometrial ablation (Resolved) irregular bleeding has restarted, neg EM bx 01/2016 Status post dilation and curettage (Resolved) Family History Mother Hyperlipidemia Thyroid disorder Father Essential hypertension Diabetes Personal history of malignant neoplasm prostate Heart disease Hyperlipidemia Myocardial infarction Social History (Updated 12/25/18 @ 23:45 by Chadwick Epps MD) Smoking/Tobacco Use Status: Former Tobacco Use Quit Date: 12/15/15 Alcohol Intake: never Drug use: Never Household members: family and other Details: Lives with demented mother and her brother 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; [employer]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 Do you feel safe at home: Yes Additional Social history: 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 [employer] Home Medications and Allergies Home Medications Medication Instructions Recorded Confirmed Type albuterol sulfate 90 mcg/actuation 2 puff IH Q6H PRN 12/05/17 12/25/18 History aerosol inhaler epinephrine 0.3 mg/0.3 mL 0.3 mg IM ONCE #1 each 12/05/17 12/25/18 Rx injection, auto-injector meclizine 25 mg tablet 25 mg PO TID PRN #30 tab 04/23/18 12/25/18 Rx sumatriptan succinate 50 mg tablet 50 mg PO PRN #30 tab MDD 100mg 04/23/18 12/25/18 Rx cetirizine 10 mg tablet 10 mg PO DAILY #90 tab 08/12/18 12/25/18 Rx fluoxetine 20 mg capsule 20 mg PO DAILY #90 cap 08/12/18 12/25/18 Rx lansoprazole 30 mg capsule,delayed 30 mg PO DAILY #90 cap 08/12/18 12/25/18 Rx release Allergies Allergy/AdvReac Type Severity Reaction Status Date / Time venom-honey bee Allergy Severe Unverified 12/25/18 16:31 Sulfa (Sulfonamide Allergy HIVES Unverified 12/25/18 16:31 Antibiotics) Exam Const General: cooperative, comfortable and no acute distress Orientation: alert, awake and oriented x3 HENMT Head: normal to inspection Ears: hearing grossly normal bilaterally General nose exam: external nose normal Face and sinus: face symmetric Mouth: oropharynx normal Teeth and gingiva: edentulous Eyes General: appearance normal, both eyes and all related structures Pupils: PERRL Neck Neck: normal visual inspection Thyroid: symmetrical Carotids: normal carotid upstroke Lymphatic: no lymphadenopathy noted Chest Chest: normal inspection of the chest Resp Effort & Inspection: normal respiratory effort Auscultation: clear to auscultation bilaterally Cardio Jugular venous pressure: no JVD Rate: regular rate Rhythm: regular rhythm Heart Sounds: S1 normal, S2 normal and no murmurs GI Inspection: normal to inspection Palpation: soft, no hepatosplenomegaly and tender (Right lower quadrant slightly tender, no guarding or rebound) Back/Spine/Pelvis Back: no CVA tenderness Cervical Spine: normal cervical lordosis Thoracic/Lumbar Spine: thoracic and lumbar spine normal to inspection Skin General skin exam: no rashes or lesions noted Wounds: no wounds Neuro General: alert, awake, oriented x3, moves all extremities and no focal motor deficits Cranial Nerves: CN's II-XI intact bilaterally Cognition: normal cognition Speech: speech normal Extrem General: normal to inspection and no clubbing, cyanosis or edema Psych Appearance: grossly normal Mental Status: mental status grossly normal Speech and Movement: speech and movement normal Mood: congruent mood Affect: normal affect Attitude: cooperative Thought Process: normal Thought Content: normal Insight: fair Results Labs Result diagrams: 12/25/18 17:33 12/25/18 17:33 Labs: Laboratory Results - last 24 hr 12/25/18 12/25/18 12/25/18 17:33 17:33 17:33 WBC 7.12 RBC 4.19 Hgb 12.7 Hct 36.9 MCV 88.1 MCH 30.3 MCHC 34.4 RDW 12.7 Plt Count 233 MPV 11.7 H Immature Gran % 0.1 Neutrophils % 65.1 Lymphocytes % 26.0 Monocytes % 7.3 Eosinophils % 1.4 Basophils % 0.1 Absolute Neutrophils 4.63 Absolute Lymphocytes 1.85 Absolute Monocytes 0.52 Absolute Eosinophils 0.10 Absolute Basophils 0.01 D-Dimer Sodium 141 Potassium 3.2 L Chloride 107 Carbon Dioxide 27.2 Anion Gap 6.8 BUN 9 Creatinine 0.80 Estimated GFR/1.73 m2 >= 60.00 Glucose 124 H Calcium 8.4 L Total Bilirubin 0.3 AST 21 ALT 21 Alkaline Phosphatase 91 Troponin I < 0.05 Total Protein 6.3 L Albumin 3.2 L Lipase 243 Serum HCG, Qual Negative Urine Color Urine Clarity Urine pH Ur Specific [place] Urine Protein Urine Ketones Urine Blood Urine Nitrite Urine Bilirubin Urine Urobilinogen Ur Leukocyte Esterase Urine Glucose 12/25/18 12/25/18 12/25/18 19:00 22:30 22:30 WBC RBC Hgb Hct MCV MCH MCHC RDW Plt Count MPV Immature Gran % Neutrophils % Lymphocytes % Monocytes % Eosinophils % Basophils % Absolute Neutrophils Absolute Lymphocytes Absolute Monocytes Absolute Eosinophils Absolute Basophils D-Dimer 262 Sodium Potassium Chloride Carbon Dioxide Anion Gap BUN Creatinine Estimated GFR/1.73 m2 Glucose Calcium Total Bilirubin AST ALT Alkaline Phosphatase Troponin I < 0.05 Total Protein Albumin Lipase Serum HCG, Qual Urine Color Yellow Urine Clarity Clear Urine pH 7.0 Ur Specific [place] 1.015 Urine Protein Negative Urine Ketones Negative Urine Blood Negative Urine Nitrite Negative Urine Bilirubin Negative Urine Urobilinogen 4.0 H Ur Leukocyte Esterase Negative Urine Glucose Negative Last Vital Signs Temp 37.1 C 12/25/18 22:21 Pulse 59 L 12/25/18 22:35 Resp 16 12/25/18 22:35 BP 109/57 L 12/25/18 22:35 Pulse Ox 99 12/25/18 22:35
[2018-12-26] VITALS (14 sets, daily range): BP systolic 96–126; BP diastolic 54–74; PULSE 53–87; RESP 16–19; TEMP 36.5–37.5; O2SAT 96–98
--- NOTE | 2018-12-26 00:16 | NUR.NOTE ---
Nursing Note: Report to floor RN.
[2018-12-26] MEDS: POTASSIUM CHLORIDE/0.9% NACL 1,000 ML 100 MEQ IV ×3 (01:06→20:01)
[2018-12-26] MEDS: Normal Saline Flush 10 ML SYR (01:06)
--- NOTE | 2018-12-26 01:29 | W.ED.GENAD ---
Discharge Plan Disposition Patient Disposition: [facility] INPATIENT Condition: Fair Discharge Details Chief Complaint: GenMedical Clinical Impression: Syncope Admit Date/Time: 12/25/18 23:30 Admit Provider: Chadwick Epps Attending Provider: Chadwick Epps Primary Care Provider: Sarah Beltrán ED Provider: Ailyn Peraza Discharge Data Discharge Date/Time-TO BE ENTERED AT DEPARTURE: 12/26/18 00:38 HPI General Date/Time Provider Initiated Documentation: 12/25/18 16:28. Related Data Home Medications Medication Instructions Recorded Confirmed albuterol sulfate 90 mcg/actuation 2 puff IH Q6H PRN 12/05/17 12/25/18 aerosol inhaler epinephrine 0.3 mg/0.3 mL 0.3 mg IM ONCE #1 each 12/05/17 12/25/18 injection, auto-injector meclizine 25 mg tablet 25 mg PO TID PRN #30 tab 04/23/18 12/25/18 sumatriptan succinate 50 mg tablet 50 mg PO PRN #30 tab MDD 100mg 04/23/18 12/25/18 cetirizine 10 mg tablet 10 mg PO DAILY #90 tab 08/12/18 12/25/18 fluoxetine 20 mg capsule 20 mg PO DAILY #90 cap 08/12/18 12/25/18 lansoprazole 30 mg capsule,delayed 30 mg PO DAILY #90 cap 08/12/18 12/25/18 release Previous Rx's Medication Instructions Recorded epinephrine 0.3 mg/0.3 mL 0.3 mg IM ONCE #1 each 12/05/17 injection, auto-injector meclizine 25 mg tablet 25 mg PO TID PRN #30 tab 04/23/18 sumatriptan succinate 50 mg tablet 50 mg PO PRN #30 tab MDD 100mg 04/23/18 cetirizine 10 mg tablet 10 mg PO DAILY #90 tab 08/12/18 fluoxetine 20 mg capsule 20 mg PO DAILY #90 cap 08/12/18 lansoprazole 30 mg capsule,delayed 30 mg PO DAILY #90 cap 08/12/18 release Allergies Allergy/AdvReac Type Severity Reaction Status Date / Time venom-honey bee Allergy Severe Unverified 12/25/18 16:31 Sulfa (Sulfonamide Allergy HIVES Unverified 12/25/18 16:31 Antibiotics) General Stated Complaint: GenMedical MIKE[facility] Medical History Acne (Inactive 04/21/13) Asthma (Chronic) Back pain (Resolved) Taking prednisone 60mg QD for 4 days. Currently on day 2. Not feeling it is making much of a difference but she was encouraged to take for the full 4 days. Also suggested she take the muscle relaxer only PRN as it makes her quite drowsy. Encouraged to take at night. To help with rest. Other valenzuela, suggested she increse Aleve to AM & PM dose, then supplement with 1000mg Acetaminophen every 4-6 hours up to a total of 4000mg/day. Suggested ice might help more than heat but either should be limited to only 20 minutes at a time. Use topicals (Solopas Gel or Aspercreame with Lidocaine seem to be quite helpful. Try to avoid sitting or standing still for prolonged periods of time. Walking on flat ground is encourage. TAMARA II (cervical intraepithelial neoplasia II) (Resolved 02/07/16) (-)ECC; two areas on ectocervix (+)CIN2 s/p hyst Depression (Chronic) Takes Fluoxetine 20mg QD with good impact on her depression, denies any SI. Encouraged to continue. to try to tame a hoiurde. Gastroesophageal reflux disease (Chronic) Gestational diabetes mellitus (Inactive) High ankle sprain of right lower extremity (Resolved) Tobacco use (Resolved 10/15/14) quit 01/2016 Vertigo (Acute) Surgical History ANAL SURGERY surgical drainage of anal fissure Dilation and curettage X 2 with losses discectomy (~2003) Endometrial Ablation (~2009) History of bilateral ligation of fallopian tubes (Inactive) History of discectomy (Inactive) Ligation of fallopian tube S/P endometrial ablation (Resolved) irregular bleeding has restarted, neg EM bx 01/2016 Status post dilation and curettage (Resolved) Family History Mother Hyperlipidemia Thyroid disorder Father Essential hypertension Diabetes Personal history of malignant neoplasm prostate Heart disease Hyperlipidemia Myocardial infarction Social History Smoking/Tobacco Use Status: Former Tobacco Use Quit Date: 12/15/15 Alcohol Intake: never Drug use: Never Household members: family and other Details: Lives with demented mother and her brother 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 Speech is clear. Cranial nerves intact as tested III - XI. Normal [id number] test. No pronator drift. Normal heel-hernandez test. No Nystagmus. Gait normal. Strength intact in all extremities. Sensation intact in all extremities. Course Vital Signs Vital signs: Vital Signs Temperature 36.6 C 12/25/18 16:27 Pulse 60 12/25/18 16:27 Respiratory Rate 15 12/25/18 16:27 Blood Pressure 112/57 L 12/25/18 16:27 Pulse Oximetry 95 12/25/18 16:27 Temperature 36.7 C 12/26/18 00:41 Temperature Source Skin 12/25/18 22:21 Pulse 58 L 12/26/18 00:41 Pulse Rhythm Regular 12/26/18 00:41 Pulse 57 L 12/25/18 20:45 Respiratory Rate 16 12/26/18 00:41 Respiratory Effort Non-Labored 12/26/18 00:41 Respiratory Depth Normal 12/26/18 00:41 Respiratory Pattern Normal 12/26/18 00:41 Blood Pressure 103/61 12/26/18 00:41 Blood Pressure Mean 70 12/25/18 20:45 Blood Pressure Position Sitting 12/25/18 16:27 Pulse Oximetry 98 12/26/18 00:41 Oxygen Delivery Method Room Air 12/26/18 00:41 Oxygen Flow Rate 0 12/26/18 00:41 Pain Level 0 12/26/18 00:15 Lab/Test Results Lab/Test Results: Laboratory Tests Range/Units 12/25/18 12/25/18 12/25/18 17:33 17:33 17:33 WBC (4.4-10.8) k/cumm 7.12 RBC (4.00-5.20) m/cumm 4.19 Hgb (12.0-15.5) g/dL 12.7 Hct (36.0-46.0) % 36.9 MCV (80-95) fL 88.1 MCH (27.0-33.0) pg 30.3 MCHC (32.0-36.0) g/dL 34.4 RDW (11.7-14.6) % 12.7 Plt Count (130-400) x1000/uL 233 MPV (8.0-11.0) fL 11.7 H Immature Gran % 0.1 Neutrophils % 65.1 Lymphocytes % 26.0 Monocytes % 7.3 Eosinophils % 1.4 Basophils % 0.1 Absolute Neutrophils (1.2-6.7) k/cumm 4.63 Absolute Lymphocytes (1.2-3.4) k/cumm 1.85 Absolute Monocytes (0.11-0.7) k/cumm 0.52 Absolute Eosinophils (0.0-0.7) k/cumm 0.10 Absolute Basophils (0.0-0.2) k/cumm 0.01 D-Dimer (<500) ng/mlFEU Sodium (136-145) mmol/L 141 Potassium (3.5-5.1) mmol/L 3.2 L Chloride (98-107) mmol/L 107 Carbon Dioxide (21.0-32.0) mmol/L 27.2 Anion Gap (3-11) mmol/L 6.8 BUN (7-18) mg/dL 9 Creatinine (0.55-1.02) mg/dL 0.80 Estimated GFR/1.73 m2 (mL/min/1.73m2) >= 60.00 Glucose (70-100) mg/dL 124 H Calcium (8.5-10.1) mg/dL 8.4 L Total Bilirubin (0.2-1.0) mg/dL 0.3 AST (15-37) U/L 21 ALT (14-59) U/L 21 Alkaline Phosphatase (46-116) U/L 91 Troponin I (0.00-0.06) ng/mL < 0.05 Total Protein (6.4-8.2) g/dL 6.3 L Albumin (3.4-5.0) g/dL 3.2 L Lipase (73-393) U/L 243 Serum HCG, Qual Negative Urine Color (Yellow) Urine Clarity (Clear) Urine pH (5-8) Ur Specific [place] (1.005-1.025) Urine Protein (Negative) mg/dL Urine Ketones (Negative) mg/dL Urine Blood (Negative) Urine Nitrite (Negative) Urine Bilirubin (Negative) Urine Urobilinogen (Up TO 0.2) EU/dL Ur Leukocyte Esterase (Negative) Urine Glucose (Negative) mg/dL Range/Units 12/25/18 12/25/18 12/25/18 19:00 22:30 22:30 WBC (4.4-10.8) k/cumm RBC (4.00-5.20) m/cumm Hgb (12.0-15.5) g/dL Hct (36.0-46.0) % MCV (80-95) fL MCH (27.0-33.0) pg MCHC (32.0-36.0) g/dL RDW (11.7-14.6) % Plt Count (130-400) x1000/uL MPV (8.0-11.0) fL Immature Gran % Neutrophils % Lymphocytes % Monocytes % Eosinophils % Basophils % Absolute Neutrophils (1.2-6.7) k/cumm Absolute Lymphocytes (1.2-3.4) k/cumm Absolute Monocytes (0.11-0.7) k/cumm Absolute Eosinophils (0.0-0.7) k/cumm Absolute Basophils (0.0-0.2) k/cumm D-Dimer (<500) ng/mlFEU 262 Sodium (136-145) mmol/L Potassium (3.5-5.1) mmol/L Chloride (98-107) mmol/L Carbon Dioxide (21.0-32.0) mmol/L Anion Gap (3-11) mmol/L BUN (7-18) mg/dL Creatinine (0.55-1.02) mg/dL Estimated GFR/1.73 m2 (mL/min/1.73m2) Glucose (70-100) mg/dL Calcium (8.5-10.1) mg/dL Total Bilirubin (0.2-1.0) mg/dL AST (15-37) U/L ALT (14-59) U/L Alkaline Phosphatase (46-116) U/L Troponin I (0.00-0.06) ng/mL < 0.05 Total Protein (6.4-8.2) g/dL Albumin (3.4-5.0) g/dL Lipase (73-393) U/L Serum HCG, Qual Urine Color (Yellow) Yellow Urine Clarity (Clear) Clear Urine pH (5-8) 7.0 Ur Specific [place] (1.005-1.025) 1.015 Urine Protein (Negative) mg/dL Negative Urine Ketones (Negative) mg/dL Negative Urine Blood (Negative) Negative Urine Nitrite (Negative) Negative Urine Bilirubin (Negative) Negative Urine Urobilinogen (Up TO 0.2) EU/dL 4.0 H Ur Leukocyte Esterase (Negative) Negative Urine Glucose (Negative) mg/dL Negative
[2018-12-26 03:22] LABS: Troponin I < 0.05 ng/mL (0.00-0.06)
[2018-12-26 07:31] LABS: Abs Immature Grans 0.02 k/cumm (0.0-0.09); Absolute Basophil Count 0.01 k/cumm (0.0-0.2); Absolute Eosinophil Count 0.08 k/cumm (0.0-0.7); Absolute Lymphocyte Count 2.27 k/cumm (1.2-3.4); Absolute Monocyte Count 0.55 k/cumm (0.11-0.7); Absolute Neutrophil Count 3.58 k/cumm (1.2-6.7); Basophils % 0.2; Eosinophils % 1.2; HCT 36.2 % (36.0-46.0); Immature Grans % 0.3; Lymphocytes % 34.9; Mean Corp. HGB Concentration 33.1 g/dL (32.0-36.0); Mean Corpuscular Hemoglobin 29.7 pg (27.0-33.0); Mean Corpuscular Volume 89.6 fL (80-95); Mean Platelet Volume 11.8 fL (8.0-11.0); Monocytes % 8.4; Platelet Count 219 x1000/uL (130-400); RBC 4.04 m/cumm (4.00-5.20); RBC Distribution Width 13.1 % (11.7-14.6); White Blood Cell Count 6.51 k/cumm (4.4-10.8)
[2018-12-26 07:50] LABS: AST 14 U/L (15-37); Albumin 2.7 g/dL (3.4-5.0); BUN 6 mg/dL (7-18); Bilirubin, Total 0.3 mg/dL (0.2-1.0); Potassium 3.2 mmol/L (3.5-5.1)
[2018-12-26 07:56] LABS: Troponin I < 0.05 ng/mL (0.00-0.06)
[2018-12-26 08:08] LABS: ALT 17 U/L (14-59); Alkaline Phosphatase 75 U/L (46-116); CREATININE 0.78 mg/dL (0.55-1.02); Calcium 7.9 mg/dL (8.5-10.1); Chloride 110 mmol/L (98-107); Glucose 84 mg/dL (70-100); Sodium 143 mmol/L (136-145); Total Protein 5.6 g/dL (6.4-8.2)
[2018-12-26] MEDS: Lansoprazole 30 MG CAPCR PO (08:36)
[2018-12-26] MEDS: Cetirizine 10 MG TAB PO (08:36)
[2018-12-26] MEDS: Enoxaparin 40 MG/0.4 ML SYR SC (08:37)
[2018-12-26] MEDS: FLUoxetine 20 MG CAP PO (08:37)
--- NOTE | 2018-12-26 09:56 | IN_ITS ---
Date of service: 12/26/18 Time of Service: 09:56 PT Notes Inpatient Physical Therapy Evaluation Date: 12/26/2018 Referring Doctor: Chadwick Epps MD PT Orders: PT CONSULT: Near syncope, recurrent dizziness, vestibular dysfunction Precautions: Fall. Standard. Activity as tolerated. Patient Profile/Admitting Diagnosis: Patient is a 43-year-old lady who presented to the ED on 12/25/2018 with chief complaints of near syncopal episode mild diaphoresis, and dizziness while eating at a restaurant in [place]. Received skilled PT services and received testing for BPPV with inconclusive result on 10/22/2018 and 10/23/2018. She is diagnosed with nonspecific paroxysmal spells, dizziness, reticulocyte cardia, hypokalemia, right left abdominal quadrant pain and orthostatic hypotension. PMHX: Medical History (Updated 12/25/18 @ 23:50 by Chadwick Epps MD) Acne (Inactive 04/21/13) Asthma (Chronic) Back pain (Resolved) Taking prednisone 60mg QD for 4 days. Currently on day 2. Not feeling it is making much of a difference but she was encouraged to take for the full 4 days. Also suggested she take the muscle relaxer only PRN as it makes her quite drowsy. Encouraged to take at night. To help with rest. Other valenzuela, suggested she increse Aleve to AM & PM dose, then supplement with 1000mg Acetaminophen every 4-6 hours up to a total of 4000mg/day. Suggested ice might help more than heat but either should be limited to only 20 minutes at a time. Use topicals (Solopas Gel or Aspercreame with Lidocaine seem to be quite helpful. Try to avoid sitting or standing still for prolonged periods of time. Walking on flat ground is encourage. TAMARA II (cervical intraepithelial neoplasia II) (Resolved 02/07/16) (-)ECC; two areas on ectocervix (+)CIN2 s/p hyst Depression (Chronic) Takes Fluoxetine 20mg QD with good impact on her depression, denies any SI. Encouraged to continue. to try to tame a hoiurde. Gastroesophageal reflux disease (Chronic) Gestational diabetes mellitus (Inactive) High ankle sprain of right lower extremity (Resolved) Tobacco use (Resolved 10/15/14) quit 01/2016 Vertigo (Acute) Surgical History (Updated 12/25/18 @ 23:42 by Chadwick Epps MD) ANAL SURGERY surgical drainage of anal fissure Dilation and curettage X 2 with losses discectomy (~2003) Endometrial Ablation (~2009) History of bilateral ligation of fallopian tubes (Inactive) History of discectomy (Inactive) Ligation of fallopian tube S/P endometrial ablation (Resolved) irregular bleeding has restarted, neg EM bx 01/2016 Status post dilation and curettage (Resolved) Social History/Home Situation: Patient lives with mother in her mother's mobilie home with three steps to enter and a rail on the right going up. She states that she has been taking care of her mother but has [facility] staff come in to help her on days that that she would go to [facility] to work. She reports that she has 5 grown children who all ave been living on their own. 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 Current Functional Limitations: Limited and impaired mobility performance due to reports of dizziness Equipment Owned/DME: [employer] Subjective: Patient is agreeable to PT eval and treatment today. Patient states that she feels cloudy, spacey, and the room warped. She denies nausea, numbness, headache, and chest pain throughout PT session. Objective: General Observation: Patient seen resting in bed, in no apparent distress. Telemetry monitoring in place. Mental Status: Alert and oriented x 4 Pain: Mild left abdominal quadrant pain. ROM: Right Upper Extremity: Shoulder Flexion WFL. Shoulder abduction WFL. Elbow flexion WFL. Wrist flexion WFL. Functional opening and closing of hand WFL. Left Upper Extremity: Shoulder Flexion WFL. Shoulder abduction WFL. Elbow flexion WFL. Wrist flexion WFL. Functional opening and closing of hand WFL. Right Lower Extremity: Hip flexion WFL. Hip abduction WFL. Knee flexion WFL. Ankle dorsiflexion WFL. Ankle plantarflexion WFL. Left Lower Extremity: Hip flexion WFL. Hip abduction WFL. Knee flexion WFL. Ankle dorsiflexion WFL. Ankle plantarflexion WFL. Strength: Right Upper Extremity: Shoulder flexors 5/5. Shoulder abductors 5/5. Elbow flexors 5/5. Elbow extensors 5/5. Heating Equipment Installer strong. Left Upper Extremity: Shoulder flexors 5/5. Shoulder abductors 5/5. Elbow flexors 5/5. Elbow extensors 5/5. Heating Equipment Installer strong. Right Lower Extremity: Hip flexors 5/5. Hip abductors 5/5. Knee flexors 4/5. Knee extensors 5/5. Ankle dorsiflexors 4/5. Ankle plantarflexors 4/5. Left Lower Extremity:Hip flexors 5/5. Hip abductors 5/5. Knee flexors 4/5. Knee extensors 5/5. Ankle dorsiflexors 4/5. Ankle plantarflexors 3+/5. Sensation: Intact as to pain and pressure on bilateral lower extremities. Bed Mobility/Transfers: Rolling independent Supine to sit independent Sit to supine independent Sit to stand SBA Stand to sit SBA Bed to chair SBA Chair to bed SBA Gait: Patient was able to tolerate level surface ambulation of 15' + 150' + 15' feet using FWW with CGA of this PT with no episodes of instability observed. Balance: Static Sitting: Good Dynamic Sitting: Good Static Standing: Fair Dynamic Standing: Fair Special Tests: Mobility Limitations Standardized Measure [facility]-P[facility] 6 clicks Basic Mobility Inpatient Short Form: Raw Score: 21 CMS Score: 29 9 % deficit VERTIGO TESTING: Smooth pursuit produced direction-changing nystagmus to the left which may signify central nervous system affectation. Sharp-katelyn and alar ligament tests are both negative. VOR intact. Potsdam-hallpike testing did not provoke any nystagmus nor symptoms of lightheadedness, dizziness, nor nausea. Supine head roll test negative. 4-stage Balance test: Patient is able to perform standing with feet together and semi-tandem but is unable to perform tandem and one-legged standing for 10 seconds. Informed Consent/Education: Patient instructed in purpose of PT consult and plan of care. Assessment: Patient is a 43-year-old lady who presented to the ED on 12/25/2018 with near syncopal episode. Patient presents with clinical signs and symptoms consistent with current/admitting diagnoses that have resulted to mobility limitations, gait instability, and impairment of motor control as demonstrated by the following impairment level findings: 1. Lightheadedness 2. Impaired standing balance 3. Impaired activity tolerance Impairments are contributing to the following functional limitations: 1. Inability to safely ambulate without assistive device and physical assistance 2. Increase completion time for mobility ADL performance 3. Increased fall risk 4. Inability to negotiate steps alone safely Patient is assessed as a 27534 moderate complexity based on the following: History: Patient is diagnosed with nonspecific paroxysmal spells, dizziness, reticulocyte cardia, hypokalemia, right left abdominal quadrant pain and orthostatic hypotension. Examination: Demonstrable impairment in balance with underlying impairments and functional limitations as documented above Presentation:Evolving Decision Makin moderate complexity Goals: Goals X1 week 1. Independent gait on level surface with out an assistive device for at least 300 feet without report of pain nor dyspnea 2. Independent stair negotiation while holding onto bilateral rails for at least 10 steps without report of pain nor dyspnea 3. Independent with home exercise program 4. Good static and dynamic standing balance/tolerance Plan of Care/Treatment Plan: 1-2x/day, 7 days/week x 1 week. Plan of care has been reviewed with the RESTAURANT CASHIER providing the service under Physical Therapy direction. Initiate Physical Therapy intervention for strengthening, bed mobility, transfers, gait, stairs, balance training, use of assistive device. DISCHARGE RECOMMENDATIONS: Patient will benefit from home health PT services in order to progress mobility level using least restrictive assistive ambulatory device, assess home safety, identify additional equipment needs, and establish a functional maintenance program that will increase ability of patient to remain at home. Patient has FWW at home which she can use to maximize mobility performance. TREATMENT CODE/TIME: 03947 x 30 minutes, 73889 x 19 minutes beginning 13:49 PM. Thank you very much for this referral. Gaby Marquez PT, DPT, CLT [facility]
[2018-12-26] MEDS: Potassium Chloride 20 MEQ TABCR 40 MEQ PO (11:28)
--- NOTE | 2018-12-26 15:11 | PHARADMIT ---
Addendum entered by Joce Araujo III 12/28/18 13:52: Pharmacy Note Subjective is considering working patient up for possibility of Lymes Objective VS-OK Labs-OK Assessment No med changes Plan Awaiting results of various panels Addendum entered by Joce Araujo III 12/27/18 15:46: Pharmacy Note Subjective Nursing reports patient has not experienced Ortho-static Hypotension since arriving. PT notes that patient feeling dizzy but less so than yesterday. MD was concerned that symptoms might be from SSRI and has dc'd Prozac, and was to consult with . Objective VS-OK Lytes, SCr-OK Wgt-77.7 kg BM yesterday. Assessment Currently taking Mecliizine,Zyrtec, along with Previcid. Plan Plan is for patient to return home. Original Note: Admission Pharmacy Clinical Review ORTHOSTATIC HYPOTENSION/NEAR SYNCOPE Code Status Full Code Current Weight 77.8 kg Renally Cleared and Narrow Therapeutic Index Meds CrCl ~80 QTc Value / Action Taken QTc 419 BP Control, Fever BP 108/68, afebrile Electrolytes reviewed Na 143, K+ 3.2, Mag -- DVT Prophylaxis LMWH 40mg Opiate Usage / Scheduled Bowel Regimen Ordered None, yes Plt/SCr for Heparin / Enoxaparin Plt 219, Scr 0.78 INR for Warfarin H/H stable, WBC/Bands H/H 12/36.2, WBC 6.51 Antibiotic appropriateness na Cultures and Sensitivities na Surgical ABX d/c within 24 hr na DM control / Insulin Dosing Heart Failure (Check EF%) (WENDY's, B-Block, Diuretics) na IV to PO Switch Home Meds Reviewed Yes, all ok Home Meds Not Ordered Albuterol prn, sumatriptan prn Comments Concern of a possible psychogenic cause to her sx; BP responded to IV fluids, will continue IV fluids with potassium noted fluoxetine might be causing hypotension and will discuss with pt about stopping it
--- NOTE | 2018-12-26 15:17 | PDOC.CMIN ---
Care Management Initial Assess REASON FOR HOSPITALIZATION:: Orthostatic Hypotension/Near Syncope PAST MEDICAL HISTORY/PAST SURGICAL HISTORY:: Acne, Asthma, Back Pain, TAMARA II, Depression, GERD, Gestational DM, high ankle sprain of LE, tobacco use, vertigo, anal surgery drainage of fissure, dilation and curettage x2, discectomy, endometrial ablation, bilat ligation of fallopian tubes PREVIOUS FUNCTIONAL STATUS/SOCIAL/FAMILY SUPPORTS:: Janessa reports residing in [facility] with her mother and brother. Janessa reports her mother has early onset dementia and Janessa provides care for her. 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 Her brother works at [facility] [employer] and during the day, Janessa's mother is cared for by respite workers through [facility] and [facility]. Janessa is independent in the community and transports herself with her own vehicle. She reports being seperated from her and feeling stressed about her current social situation. CURRENT FUNCTIONAL STATUS:: Janessa is pleasant in interaction and forthcoming with information. She requests resources around connecting with a counselor in the community. She shares concerns that her syncopal episodes could be stress related. She reports the episodes started this summer and are scary to experience as she has fainted and fallen. She reports no new med changes around the onset of her symptoms. ADVANCE DIRECTIVES:: Janessa requested document for review. Has patient been provided with information about the portal?: Yes Did the patient sign up for the portal?: Yes ([email or web address]) CODE STATUS:: Full Code INSURANCE COVERAGE / FINANCIAL ISSUES:: JUDITH CURRENT HOME/COMMUNITY SERVICES/EQUIPMENT:: No current services or equipment. PRIMARY CARE PHYSICIAN:: Sarah Beltrán POTENTIAL DISCHARGE NEEDS:: Follow up appointment with PCP and [facility] at [facility]. Resources for AD, Portal Support, Counselor attachment, caregiver supports. PATIENT/FAMILY EDUCATION NEEDS:: Community based supports, discharge considerations, Ask Me Three. ANTICIPATED BARRIERS TO DISCHARGE:: None identified. TRANSPORTATION:: Via private vehicle with family or RCT. PLAN:: Janessa will continue to be closely monitored and evaluated. Resources provided for outpatient follow up. Anticipate follow up appointments will be scheduled prior to discharge. Janessa will transport via private vehicle with family or RCT. CM will continue to follow and suppor discharge planning considerations.
--- NOTE | 2018-12-26 15:35 | PT.INTREAT ---
Date of service: 12/26/18 Time of Service: 15:35 PT Notes Inpatient Physical Therapy Treatment Note [facility] Date: 12/26/2018 PRECAUTIONS: Fall, monitor BP SUBJECTIVE: I do states that she has been feeling dizzy throughout the day, although indicates that she feels a little worse this afternoon. She is agreeable to participating in PT. OBJECTIVE: PAIN: No complaints of pain BED MOBILITY/TRANSFERS Supine-sit: I Sit-supine: I Sit-stand: SBA Stand-sit: SBA GAIT Assistive Device: FWW Weight bearing: Full Assist: CGA?SBA Distance: 60' x2 Deviation: Patient reports feeling dizzy with gait training STAIRS: Up 3?4 and down 2?6 using B rails and a step over pattern with CGA due to increased dizziness VITALS: Post-stair training orthostatic vital signs: 122/67, 63 HR, 97% in supine; 108/71, 61 HR, 97% in seated; 108/71, 68 HR, 96% in standing TOILETING: Patient toileted with SBA for transfers only ASSESSMENT: Patient tolerated session with complaints of increased dizziness with activity. She required a rest in supine position following stair training due to increased dizziness. Vital signs are listed above. PLAN: Continue with PT's POC TREATMENT CODE/TIME: 30 minutes; 21566 x2
--- NOTE | 2018-12-26 16:19 | W.PM.PROGNOT ---
Date of Service Date of service: 12/26/18 Time of Service: 16:19 Assessment and Plan Assessment and plan (1) Nonspecific paroxysmal spell: Status: Acute Assessment and plan: Given recurrent nature of these, orthostasis, symptoms even in sitting position, and the fact that the patient is on an SSRI, I wonder if the patient's spells are, in fact, due to dysautonomia of being on SSRI. The patient is very concerned about her depression - I will speak with psychiatry about what agent to try instead of fluoxetine. For now, continue IVF and monitor on tele. Check UDS. (2) Dizziness: Status: Acute Assessment and plan: Continue vestibular therapy - however, there could be other components to patient's symptoms, such as side effects of SSRI.. (3) Depression: Status: Chronic Assessment and plan: Agree with Dr Epps that psychogenic cause of symptoms is a possibility - however, so is a side effect of fluoxetine. Will discuss with psychiatry. (4) Bradycardia: Status: Acute Assessment and plan: I wonder if this isn't due to dysautonomia of being on an SSRI. As above (5) Hypokalemia: Status: Acute Assessment and plan: Replete (6) Right lower quadrant abdominal pain: Status: Acute Assessment and plan: No pain at this time. The pain is not new and has had outpatient workup. Follow up as outpatient. (7) Orthostatic hypotension: Status: Acute Assessment and plan: Continue IVF. As above - ?dysautonomia. (8) DVT prophylaxis: Status: Acute Assessment and plan: SC lovenox (9) Discharge planning issues: Status: Acute Assessment and plan: Full code likely discharge home tomorrow Subjective Subjective Interval history since last seen: Ms Covarrubias states that her syncopal episode yesterday happened from a sitting position. She still feels dizzy right now, even laying in bed. Denies chest pain, palpitations, shortness of breath, nausea, vomiting. States she was started on prozac 2.5 years ago because welbutrin did not work. Exam Narrative Exam Narrative: General: very pleasant middle-aged female, A&Ox3 HEENT: EOMI, MMM Heart: RRR, no m/r/g Lungs: CTAB GI: abdomen is soft, nontender, nondistended Extremities: no e/c/c BLE's Objective Objective Clinical Data: Abnormal lab results 12/25/18 12/25/18 12/25/18 Range/Units 17:33 17:33 19:00 MPV 11.7 H (8.0-11.0) fL Potassium 3.2 L (3.5-5.1) mmol/L Chloride (98-107) mmol/L BUN (7-18) mg/dL Glucose 124 H (70-100) mg/dL Calcium 8.4 L (8.5-10.1) mg/dL AST (15-37) U/L Total Protein 6.3 L (6.4-8.2) g/dL Albumin 3.2 L (3.4-5.0) g/dL Urine Urobilinogen 4.0 H (Up TO 0.2) EU/dL 12/26/18 12/26/18 Range/Units 06:22 06:22 MPV 11.8 H (8.0-11.0) fL Potassium 3.2 L (3.5-5.1) mmol/L Chloride 110 H (98-107) mmol/L BUN 6 L (7-18) mg/dL Glucose (70-100) mg/dL Calcium 7.9 L (8.5-10.1) mg/dL AST 14 L (15-37) U/L Total Protein 5.6 L (6.4-8.2) g/dL Albumin 2.7 L (3.4-5.0) g/dL Urine Urobilinogen (Up TO 0.2) EU/dL Vital Signs Temperature 36.8 C 12/26/18 11:25 Temperature Source Tympanic 12/26/18 11:25 Pulse 68 12/26/18 11:30 Pulse Rhythm Regular 12/26/18 07:35 Pulse 57 L 12/25/18 20:45 Respiratory Rate 16 12/26/18 11:25 Respiratory Effort Non-Labored 12/26/18 07:35 Respiratory Depth Normal 12/26/18 07:35 Respiratory Pattern Normal 12/26/18 07:35 Blood Pressure 108/66 12/26/18 11:30 Blood Pressure Mean 70 12/25/18 20:45 Blood Pressure Position Sitting 12/25/18 16:27 Pulse Oximetry 98 12/26/18 11:25 Oxygen Delivery Method Room Air 12/26/18 11:25 Oxygen Flow Rate 0 12/26/18 11:25 Pain Level 0 12/26/18 11:25 Comment 12/26/18 11:25 Intake & Output 12/25/18 12/26/18 12/26/18 23:59 11:59 23:59 Intake Total 1999 1396.667 / 1756.667 360 / 1756.667 Output Total 1000 / 0 900 / 1900 Balance 1999 396.667 / -143.333 -540 / -143.333 Weight 79.832 kg 77.8 kg Intake: IV 1999 976.667 / 976.667 Oral 420 / 780 360 / 780 Output: Urine 999 900 / 1900 Other: Urine Color Yellow Yellow Urine Appearance Clear Stool Size Large Stool Characteristics Formed Brown Voiding Methods Bedside Commode Toilet Laboratory Results WBC 6.51 k/cumm (4.4-10.8) 12/26/18 06:22 RBC 4.04 m/cumm (4.00-5.20) 12/26/18 06:22 Hgb 12.0 g/dL (12.0-15.5) 12/26/18 06:22 Hct 36.2 % (36.0-46.0) 12/26/18 06:22 MCV 89.6 fL (80-95) 12/26/18 06:22 MCH 29.7 pg (27.0-33.0) 12/26/18 06:22 MCHC 33.1 g/dL (32.0-36.0) 12/26/18 06:22 RDW 13.1 % (11.7-14.6) 12/26/18 06:22 Plt Count 219 x1000/uL (130-400) 12/26/18 06:22 MPV 11.8 fL (8.0-11.0) H 12/26/18 06:22 Immature Gran % 0.3 12/26/18 06:22 Neutrophils % 55.0 12/26/18 06:22 Lymphocytes % 34.9 12/26/18 06:22 Monocytes % 8.4 12/26/18 06:22 Eosinophils % 1.2 12/26/18 06:22 Basophils % 0.2 12/26/18 06:22 Absolute Neutrophils 3.58 k/cumm (1.2-6.7) 12/26/18 06:22 Absolute Lymphocytes 2.27 k/cumm (1.2-3.4) 12/26/18 06:22 Absolute Monocytes 0.55 k/cumm (0.11-0.7) 12/26/18 06:22 Absolute Eosinophils 0.08 k/cumm (0.0-0.7) 12/26/18 06:22 Absolute Basophils 0.01 k/cumm (0.0-0.2) 12/26/18 06:22 D-Dimer 262 ng/mlFEU (<500) 12/25/18 22:30 Sodium 143 mmol/L (136-145) 12/26/18 06:22 Potassium 3.2 mmol/L (3.5-5.1) L 12/26/18 06:22 Chloride 110 mmol/L (98-107) H 12/26/18 06:22 Carbon Dioxide 25.0 mmol/L (21.0-32.0) 12/26/18 06:22 Anion Gap 8.0 mmol/L (3-11) 12/26/18 06:22 BUN 6 mg/dL (7-18) L 12/26/18 06:22 Creatinine 0.78 mg/dL (0.55-1.02) 12/26/18 06:22 Estimated GFR/1.73 m2 >= 60.00 (mL/min/1.73m2) 12/26/18 06:22 Glucose 84 mg/dL (70-100) 12/26/18 06:22 Calcium 7.9 mg/dL (8.5-10.1) L 12/26/18 06:22 Total Bilirubin 0.3 mg/dL (0.2-1.0) 12/26/18 06:22 AST 14 U/L (15-37) L 12/26/18 06:22 ALT 17 U/L (14-59) 12/26/18 06:22 Alkaline Phosphatase 75 U/L (46-116) 12/26/18 06:22 Troponin I < 0.05 ng/mL (0.00-0.06) 12/26/18 06:22 Total Protein 5.6 g/dL (6.4-8.2) L 12/26/18 06:22 Albumin 2.7 g/dL (3.4-5.0) L 12/26/18 06:22 Lipase 243 U/L (73-393) 12/25/18 17:33 Serum HCG, Qual Negative 12/25/18 17:33 Urine Color Yellow (Yellow) 12/25/18 19:00 Urine Clarity Clear (Clear) 12/25/18 19:00 Urine pH 7.0 (5-8) 12/25/18 19:00 Ur Specific [place] 1.015 (1.005-1.025) 12/25/18 19:00 Urine Protein Negative mg/dL (Negative) 12/25/18 19:00 Urine Ketones Negative mg/dL (Negative) 12/25/18 19:00 Urine Blood Negative (Negative) 12/25/18 19:00 Urine Nitrite Negative (Negative) 12/25/18 19:00 Urine Bilirubin Negative (Negative) 12/25/18 19:00 Urine Urobilinogen 4.0 EU/dL (Up TO 0.2) H 12/25/18 19:00 Ur Leukocyte Esterase Negative (Negative) 12/25/18 19:00 Urine Glucose Negative mg/dL (Negative) 12/25/18 19:00
[2018-12-26 17:18] LABS: *AMPHETAMINES SCREEN URINE Negative (Negative); *BARBITURATES SCREEN URINE Negative (Negative); *BENZODIAZEPINES SCREEN URINE Negative (Negative); Cannabinoids THC Negative (Negative); Cocaine Screen,Urine Negative (Negative); METHADONE URINE SCREEN Negative (Negative); OPIATES URINE SCREEN Negative (Negative)
[2018-12-26 17:51] LABS: Tricyclic Antidepressants Negative (Negative)
[2018-12-26] MEDS: Acetaminophen 325 MG TAB PO (23:36)
[2018-12-27] VITALS (12 sets, daily range): BP systolic 96–121; BP diastolic 56–77; PULSE 47–96; RESP 14–20; TEMP 36.6–38.7; O2SAT 96–99
[2018-12-27] MEDS: POTASSIUM CHLORIDE/0.9% NACL 1,000 ML 100 MEQ IV ×2 (05:49→15:03)
[2018-12-27] MEDS: FLUoxetine 20 MG CAP PO (08:53)
[2018-12-27] MEDS: Lansoprazole 30 MG CAPCR PO (08:53)
[2018-12-27] MEDS: Enoxaparin 40 MG/0.4 ML SYR SC (08:53)
[2018-12-27] MEDS: Cetirizine 10 MG TAB PO (08:53)
--- NOTE | 2018-12-27 10:52 | CMDISCH_ITS ---
Care Management Discharge Reason for Hospitalization: Orthostatic Hypotension/Near Syncope Discharge Plan: Janessa will return home with no additional services at this time. She will follow up with her PCP and plan of care as prescribed. She will transport via private vehicle with [id number]. CM provided AD, Portal Suppor t, Counselor attachment, caregiver supports.
[2018-12-27 12:53] LABS: BUN 6 mg/dL (7-18); CREATININE 0.82 mg/dL (0.55-1.02); Calcium 8.1 mg/dL (8.5-10.1); Chloride 111 mmol/L (98-107); Glucose 109 mg/dL (70-100); Magnesium 1.8 mg/dL (1.8-2.4); Potassium 4.2 mmol/L (3.5-5.1); Sodium 142 mmol/L (136-145)
--- NOTE | 2018-12-27 14:14 | PT.INTREAT ---
Date of service: 12/27/18 Time of Service: 14:14 PT Notes Inpatient Physical Therapy Treatment Note [facility] Date: 12/27/2018 PRECAUTIONS: Fall, monitor BP SUBJECTIVE: Patient states that she continues to feel dizzy, although her dizziness has decreased since yesterday. She does state that she is not feeling very well today, stating that she has a stuffy nose. OBJECTIVE: PAIN: No complaints of pain BED MOBILITY/TRANSFERS Supine-sit: I Sit-supine: I Sit-stand: S Stand-sit: S GAIT Assistive Device: FWW Weight bearing: Full Assist: CGA in a.m.; SBA in p.m. Distance: 250' in a.m.; 50' +150' in p.m. Deviation: Multiple lurches backward, all self recovered in a.m. STAIRS: Up/down 3?4 and 2?6 using B rails and a step over pattern with SBA NEURO RE-ED patient completed several: Standing static balance activities, including standing unsupported with feet shoulder width apart, with feet close together, and with feet close together with eyes closed. Patient also performed SLS balance activity. Patient requires CGA with all activities for safety. ASSESSMENT: Patient tolerated session with continued dizziness, although she states that her dizziness does not get better or worse with activity. She required a seated rest in p.m. during gait training. PLAN: Continue with PT's POC TREATMENT CODE/TIME: Session 1: 30 minutes; [id number], [id number] Session 2: 20 minutes; [id number]
--- NOTE | 2018-12-27 15:06 | CHAPLAIN ---
Janessa was curled up in bed when I visited yesterday. She responded to questions, but minimally. I offered ongoing support.
--- NOTE | 2018-12-27 17:29 | PDOC.CMPRO ---
Care Management Progress Note S/O: Janessa was laying in bed when CM met with her. She was pleasant in interaction but unsure of her treatment plan. CM spoke with Dr. New who reported Janessa required ongoing monitoring of syncopal symptoms and reported Janessa would transition to inpatient status. MD reported going to see Janessa directly momentarily. CM continues to follow. A: 43 year old female admitted to [facility] 12/25/18 for Orthostatic Hypotension/Near Syncope P: Janessa will return home with no additional services at this time. She will follow up with her PCP and plan of care as prescribed. She will transport via private vehicle with [id number]. CM provided AD, Portal Support, Counselor attachment, caregiver supports.
--- NOTE | 2018-12-27 18:37 | PGE_ITS ---
Date of Service Date of service: 12/27/18 Time of Service: 18:37 Assessment and Plan Assessment and plan (1) Nonspecific paroxysmal spell: Status: Acute Assessment and plan: No longer orthostatic, but still symptomatic. I d/c'ed fluoxetine to see if her symptoms improve. Continue tele. Consider psychiatry consult - ? conversion disorder (2) Dizziness: Status: Acute Assessment and plan: Continue vestibular therapy - however, there could be other components to patient's symptoms, such as side effects of SSRI.. (3) Depression: Status: Chronic Assessment and plan: D/c'ing fluoxetine. Consider psychiatry consult. (4) Bradycardia: Status: Acute Assessment and plan: I wonder if this isn't due to dysautonomia of being on an SSRI. As above (5) Hypokalemia: Status: Resolved Assessment and plan: D/c IVF (6) Right lower quadrant abdominal pain: Status: Acute Assessment and plan: No pain at this time. The pain is not new and has had outpatient workup. Follow up as outpatient. (7) Orthostatic hypotension: Status: Resolved Assessment and plan: D/c IVF. (8) DVT prophylaxis: Status: Acute Assessment and plan: SC lovenox (9) Discharge planning issues: Status: Acute Assessment and plan: Full code May benefit from psychiatry consult on inpatient basis Subjective Subjective Interval history since last seen: The patient complains of feeling like she is getting a cold. Her nose is congested and she has a sore throat. She remains dizzy, even when laying down. There is not one position that makes her dizziness better or worse. She now thinks that she has been on prozac since 2011. She states that the dizziness spells just started last summer. Exam Narrative Exam Narrative: General: very pleasant middle-aged female, A&Ox3, laying in bed, sounds congested; also seen walking today - with a walker, unsteady on her feet HEENT: EOMI, MMM Heart: RRR, no m/r/g Lungs: CTAB GI: abdomen is soft, nontender, nondistended Extremities: no e/c/c BLE's Objective Objective Clinical Data: Abnormal lab results 12/27/18 Range/Units 12:37 Chloride 111 H (98-107) mmol/L BUN 6 L (7-18) mg/dL Glucose 109 H (70-100) mg/dL Calcium 8.1 L (8.5-10.1) mg/dL Vital Signs Temperature 37.2 C 12/27/18 16:12 Temperature Source Tympanic 12/27/18 16:12 Pulse 74 12/27/18 16:55 Pulse Rhythm Regular 12/27/18 15:25 Pulse 57 L 12/25/18 20:45 Respiratory Rate 18 12/27/18 16:12 Respiratory Effort Non-Labored 12/27/18 15:25 Respiratory Depth Normal 12/27/18 15:25 Respiratory Pattern Normal 12/27/18 15:25 Blood Pressure 108/65 12/27/18 16:12 Blood Pressure Mean 70 12/25/18 20:45 Blood Pressure Position Sitting 12/25/18 16:27 Pulse Oximetry 96 12/27/18 16:12 Oxygen Delivery Method Room Air 12/27/18 16:12 Oxygen Flow Rate 0 12/27/18 16:12 Pain Level 0 12/27/18 16:12 Comment 12/27/18 03:43 Intake & Output 12/26/18 12/27/18 12/27/18 23:59 11:59 23:59 Intake Total 1515 / 2911.667 1100 / 2263.333 1163.333 / 2263.333 Output Total 2750 / 3750 1725 / 2325 600 / 2325 Balance -1235 / -838.333 -625 / -61.667 563.333 / -61.667 Weight 77.7 kg Intake: IV 915 / 1891.667 980 / 1903.333 923.333 / 1903.333 Oral 600 / 1020 120 / 360 240 / 360 Output: Urine 2750 / 3750 1725 / 2325 600 / 2325 Other: Urine Color Pale Yellow Pale Urine Appearance Clear Cloudy Clear Urine Odor None None Stool Size Large Stool Characteristics Formed Brown Voiding Methods Bedside Commode Bedside Commode Laboratory Results WBC 6.51 k/cumm (4.4-10.8) 12/26/18 06:22 RBC 4.04 m/cumm (4.00-5.20) 12/26/18 06:22 Hgb 12.0 g/dL (12.0-15.5) 12/26/18 06:22 Hct 36.2 % (36.0-46.0) 12/26/18 06:22 MCV 89.6 fL (80-95) 12/26/18 06:22 MCH 29.7 pg (27.0-33.0) 12/26/18 06:22 MCHC 33.1 g/dL (32.0-36.0) 12/26/18 06:22 RDW 13.1 % (11.7-14.6) 12/26/18 06:22 Plt Count 219 x1000/uL (130-400) 12/26/18 06:22 MPV 11.8 fL (8.0-11.0) H 12/26/18 06:22 Immature Gran % 0.3 12/26/18 06:22 Neutrophils % 55.0 12/26/18 06:22 Lymphocytes % 34.9 12/26/18 06:22 Monocytes % 8.4 12/26/18 06:22 Eosinophils % 1.2 12/26/18 06:22 Basophils % 0.2 12/26/18 06:22 Absolute Neutrophils 3.58 k/cumm (1.2-6.7) 12/26/18 06:22 Absolute Lymphocytes 2.27 k/cumm (1.2-3.4) 12/26/18 06:22 Absolute Monocytes 0.55 k/cumm (0.11-0.7) 12/26/18 06:22 Absolute Eosinophils 0.08 k/cumm (0.0-0.7) 12/26/18 06:22 Absolute Basophils 0.01 k/cumm (0.0-0.2) 12/26/18 06:22 D-Dimer 262 ng/mlFEU (<500) 12/25/18 22:30 Sodium 142 mmol/L (136-145) 12/27/18 12:37 Potassium 4.2 mmol/L (3.5-5.1) D 12/27/18 12:37 Chloride 111 mmol/L (98-107) H 12/27/18 12:37 Carbon Dioxide 23.0 mmol/L (21.0-32.0) 12/27/18 12:37 Anion Gap 8.0 mmol/L (3-11) 12/27/18 12:37 BUN 6 mg/dL (7-18) L 12/27/18 12:37 Creatinine 0.82 mg/dL (0.55-1.02) 12/27/18 12:37 Estimated GFR/1.73 m2 >= 60.00 (mL/min/1.73m2) 12/27/18 12:37 Glucose 109 mg/dL (70-100) H 12/27/18 12:37 Calcium 8.1 mg/dL (8.5-10.1) L 12/27/18 12:37 Magnesium 1.8 mg/dL (1.8-2.4) 12/27/18 12:37 Total Bilirubin 0.3 mg/dL (0.2-1.0) 12/26/18 06:22 AST 14 U/L (15-37) L 12/26/18 06:22 ALT 17 U/L (14-59) 12/26/18 06:22 Alkaline Phosphatase 75 U/L (46-116) 12/26/18 06:22 Troponin I < 0.05 ng/mL (0.00-0.06) 12/26/18 06:22 Total Protein 5.6 g/dL (6.4-8.2) L 12/26/18 06:22 Albumin 2.7 g/dL (3.4-5.0) L 12/26/18 06:22 Lipase 243 U/L (73-393) 12/25/18 17:33 Serum HCG, Qual Negative 12/25/18 17:33 Urine Color Yellow (Yellow) 12/25/18 19:00 Urine Clarity Clear (Clear) 12/25/18 19:00 Urine pH 7.0 (5-8) 12/25/18 19:00 Ur Specific [place] 1.015 (1.005-1.025) 12/25/18 19:00 Urine Protein Negative mg/dL (Negative) 12/25/18 19:00 Urine Ketones Negative mg/dL (Negative) 12/25/18 19:00 Urine Blood Negative (Negative) 12/25/18 19:00 Urine Nitrite Negative (Negative) 12/25/18 19:00 Urine Bilirubin Negative (Negative) 12/25/18 19:00 Urine Urobilinogen 4.0 EU/dL (Up TO 0.2) H 12/25/18 19:00 Ur Leukocyte Esterase Negative (Negative) 12/25/18 19:00 Urine Glucose Negative mg/dL (Negative) 12/25/18 19:00 Urine Opiates Screen Negative (Negative) 12/25/18 19:00 Urine Methadone Screen Negative (Negative) 12/25/18 19:00 Ur Barbiturates Screen Negative (Negative) 12/25/18 19:00 Ur Tricyclics Screen Negative (Negative) 12/25/18 19:00 Ur Amphetamines Screen Negative (Negative) 12/25/18 19:00 U Benzodiazepines Scrn Negative (Negative) 12/25/18 19:00 Urine Cocaine Screen Negative (Negative) 12/25/18 19:00 Ur THC Screen Negative (Negative) 12/25/18 19:00
[2018-12-27] MEDS: guaiFENesin 600 MG TABCR PO (20:10)
[2018-12-27] MEDS: Acetaminophen 325 MG TAB PO (20:37)
[2018-12-28] VITALS (10 sets, daily range): BP systolic 104–133; BP diastolic 65–82; PULSE 58–94; RESP 18–20; TEMP 36.8–37.1; O2SAT 94–97
[2018-12-28] MEDS: Enoxaparin 40 MG/0.4 ML SYR SC (07:41)
[2018-12-28] MEDS: Lansoprazole 30 MG CAPCR PO (07:42)
[2018-12-28] MEDS: Fluticasone NASAL SPRAY 16 GM BTL NS (07:42)
[2018-12-28] MEDS: guaiFENesin 600 MG TABCR PO (07:42)
[2018-12-28] MEDS: Cetirizine 10 MG TAB PO (07:42)
[2018-12-28 07:49] LABS: Anion Gap 9.8 mmol/L (3-11); BUN 7 mg/dL (7-18); CO2 24.2 mmol/L (21.0-32.0); CREATININE 0.78 mg/dL (0.55-1.02); Calcium 8.2 mg/dL (8.5-10.1); Chloride 107 mmol/L (98-107); Glucose 91 mg/dL (70-100); Magnesium 1.9 mg/dL (1.8-2.4); Potassium 3.7 mmol/L (3.5-5.1); Sodium 141 mmol/L (136-145)
[2018-12-28] MEDS: Acetaminophen 325 MG TAB PO (08:52)
--- NOTE | 2018-12-28 09:39 | PT.INTREAT ---
Date of service: 12/28/18 Time of Service: 09:20 PT Notes Inpatient Physical Therapy Treatment Note [facility] Date: 12/28/18 PRECAUTIONS:Standard SUBJECTIVE: Pt reports that her throat is sore and she is congested. She sates that she does not feel well today and she has a fever and is dizzy. OBJECTIVE: GAIT THEREX: Pt completed UE and LE ther ex as per flow sheet while in bed. Due to pt's fever of 101 and dizziness she did not feel up to getting out of bed and was fatigued just with her ther ex in bed today. We will monitor pt's response to today's session and progress accordingly. ASSESSMENT: Pt was not feeling well today but was willing to complete bed ther ex. PLAN: Cont as per PT POC as per latasha. TREATMENT CODE/TIME: 9:20-9:30 TPx1
[2018-12-28 09:45] LABS: Bilirubin Negative (Negative); Blood Trace-intact (Negative); Clarity Clear (Clear); Glucose Negative (Negative); Ketones Negative (Negative); Leukocyte Esterase Negative (Negative); Nitrite Negative (Negative); Urobilinogen 0.2 EU/dL (Up TO 0.2); pH 6.5 (5-8)
--- NOTE | 2018-12-28 09:50 | DI.RAD_ITS ---
EXAM: XR CHEST 2V PA LATERAL CLINICAL HISTORY: Fever. TECHNIQUE: 2D digital imaging was performed. COMPARISON: RIGHT SHOULDER COMPLETE from 09/07/2017 FINDINGS: LUNGS: Clear. No pleural abnormality seen. HEART: Normal. MEDIASTINUM: Normal. OTHER FINDINGS:Normal. IMPRESSION: No acute pulmonary findings.
[2018-12-28 09:57] LABS: Epithelial Cells Moderate HPF (Negative); RBC 0-2 (0-2); WBC Negative HPF (0-5)
[2018-12-28 09:58] LABS: Bacteria Rare HPF (Negative); C & S Indicated? No; Casts Negative LPF (Negative); Crystals Negative HPF (Negative); Mucus Negative (Negative)
[2018-12-28] MEDS: POTASSIUM CHLORIDE 20 MEQ, POTASSIUM CHLORIDE 10 MEQ 30 MEQ PO (10:16)
[2018-12-28] MEDS: Magnesium Oxide 400 MG TAB PO (10:16)
--- NOTE | 2018-12-28 10:38 | DI.VRAD_ITS ---
PROCEDURE INFORMATION: Exam: XR Chest, 2 Views Exam date and time: 12/28/2018 9:43 AM Clinical history: 43 years old, female; Fever and other: Orthostatic hypotension TECHNIQUE: Imaging protocol: XR of the chest Views: 2 views. COMPARISON: CR CHEST 2 VIEWS SHELL BARRERA 04/24/2013 7:02 PM FINDINGS: Lungs: Unremarkable. No consolidation. Pleural space: Unremarkable. No pleural effusion. No pneumothorax. Heart/Mediastinum: Unremarkable. No cardiomegaly. Bones/joints: Unremarkable. IMPRESSION: Negative chest exam. Dictated and Authenticated by: Rebeca Pyle MD. Ordering:OCTAVIO Huynh MD
[2018-12-28] MEDS: Normal Saline Flush 10 ML SYR IVP (16:16)
--- NOTE | 2018-12-28 16:29 | DSE_ITS ---
Date of service: 12/28/18 Time of Service: 16:29 DS: Diagnosis Discharge Diagnosis (1) Nonspecific paroxysmal spell: Status: Acute (2) Dizziness: Status: Acute (3) Depression: Status: Chronic (4) Bradycardia: Status: Acute (5) Hypokalemia: Status: Resolved (6) Right lower quadrant abdominal pain: Status: Acute (7) Orthostatic hypotension: Status: Resolved Discharge Plan Disposition Patient Disposition: HOME Condition: Stable Discharge Details Chief Complaint: GenMedical Clinical Impression: Syncope Reason For Visit: ORTHOSTATIC HYPOTENSION/NEAR SYNCOPE Admit Date/Time: 12/27/18 16:00 Admit Provider: Chadwick Epps Attending Provider: Chadwick Epps Primary Care Provider: Sarah Beltrán ED Provider: Ailyn Peraza Hospital Course Hospital Course: Chief Complaint: Near Syncope HPI: 43-year-old woman with a prior history significant for Vertigo, Dizziness, and prior near syncopal episodes of uncertain etiology, admitted from [facility] Emergency Department on 11/26 following another near syncopal episode. Ms. Covarrubias has a Past Medical History significant for Asthma, GERD, DDD, Depression, and chronic LBP. She was recently admitted here with near syncope as well as a 'shaking spells' in September and October, without typical seizure features and no post-ictal state. She was found to be hypotensive and bradycardic during prior admissions, and found to be orhostatic. While hospitalized she has undergone negative work-up for her symptoms of dizziness and vertigo, and discharged in stable and improved condition. Specifically, she has had prior negative infectious and cardiac work-up (See below). Imaging of her chest, head, and abdomen were negative. Neurology was consulted and deemed her near syncope as likely related to dehydration, and her episodes of concurrent 'shaking' as non-epileptic and potential psychogenic in origin. The patient presented back to the Emergency Room on the day of admission with reported recurrence of her symptoms when she was witnessed as slumping in a chair and dropping her drink, with potential shaking during the episode - upon awakening she complained of abdominal pain and dizziness in the ED, with essentially benign labs. Once again found to have evidence of orthostatic hypotension, and hydrated. She was admitted for further evaluation and treatment. HPI: (1) Nonspecific paroxysmal spell: Patient previously underwent a thorough work-up, with a near syncopal episode attributed to dehydration. She has a history of Vertigo in the past, but has also described her symptoms as involving both 'dizziness and foggy' as well as 'room spinning' - both occuring concurrently. The Patient previously underwent a prior cardiac work-up due to persistent bradycardia - Her EKG was unchanged and serial cardiac biomarkers were negative. Her ECHO was essentially normal (Moderate MR), orthostatics were repeatedly okay and with appropriate rise in both HR and BP, and Telemetry did not show any significant abnormalities. Her outpatient Holter was similiarly without arrhythmias and showed an average HR in the 70's, although with noted sinus bradycardia as low as 45-50. Her symptoms were deemed unlikely to be due to her chronically low heart rate. She has remained without significant telemetry events. She also had no nystagmus on [place] by PT performed on previous a hospitalization. On neurology evaluation her near syncope was deemed potentially on basis of dehydration, and her 'syncopal episode with shaking' was deemed as likely nonepileptic and psychogenic in nature. No further work-up was recommended, and trial of Hydroxyzine was offered. Mrs. Covarrubias's neurological abnormalities have not duplicated following admission. She has no focal deficits. Consideration may be given to outpatient MRI of the brain to rule out other pathology as currently MRI is not available over the weekend. However prior CTA of the head and neck were unremarkable, and symptoms are not typical. Current Vertigo vs. Dizziness appears chronic, mild, and require further investigation as an outpatient. Will ensure Neurology follow-up, scheduled for early December. Also consider ENT evaluation as well. Please note that Mrs. Covarrubias experienced similiar symptoms in the past, was discharged with a walker per PT recommendations - she has been seen at her job at the local [employer], and appeared to be ambulating without difficulty and without assistance. She still has her walker at home, and recommendations are for utilizing this upon discharge. She has once again asked about disability given her symptoms. She has also reported to Case Management that shortly before onset of symptoms she experienced some psycho-social stressors at home. Consider Psychogenic etiology/conversion disorder as potential cause of patient's symptoms. Will ensure Psych follow-up. Also, there was concern regarding possibility that patient's SSRI could be responsible for her symptoms - given her anxiety, depression, and ongoing social stressors she likely needs this or similiar medication, and no evidence of similiar adverse reaction by review of medications side effect profile. Will reinitiate at time of discharge. 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 (2) Bradycardia: No clear etiology for patient's low HR. Prior values in the 60-80's mostly going back to 2016, now in the 40-70's. Patient without any obvious offending agents by med review and not on mateo agents, with a normal TSH, negative troponin, and no evidence of infection on prior or current work-up. Patient also without evidence of tick born illness - no leukopenia, thrombocytopenia, or raised LFTs. ECHO normal. Orthostatics appropriate. Holter without significant abnormality, and with Average HR of 75. Tick Panel ordered and pending at time of discharge. (3) Fever: One time fever yesterday evening - patient also with report of nasal congestion and rhinorrhea. Rapid flu, urinalysis, and CXR all checked and negative. Very likely viral in etiology, with no further fevers nearly 24 hours later. Patient appears stable for discharge. Home Meds and New Rx's Prescriptions: Continued albuterol sulfate 90 mcg/actuation HFA aerosol inhaler 2 puff IH Q6H PRNRF: 0 epinephrine 0.3 mg/0.3 mL auto-injector 0.3 mg IM ONCE Qty: 1 RF: 0 sumatriptan succinate 50 mg tablet 50 mg PO PRN MDD 100mg Qty: 30 RF: 1 meclizine 25 mg tablet 25 mg PO TID PRN (Reason: dizziness) Qty: 30 RF: 0 cetirizine [All Day Allergy (cetirizine)] 10 mg tablet 10 mg PO DAILY Qty: 90 RF: 3 fluoxetine 20 mg capsule 20 mg PO DAILY Qty: 90 RF: 3 lansoprazole 30 mg capsule,delayed release(DR/EC) 30 mg PO DAILY Qty: 90 RF: 3 Discharge Instructions Stand Alone Forms: Nursing Discharge Form Referrals: Sarah Beltrán MD [Primary Care Provider] - 12/31/18 8:20 am Activity:: No Strenuous activity Equipment/Supplies:: No Equipment Needed Diet:: As Tolerated Discharge Orders Discharge Orders: Discharge Order (Routine); Ordered 12/28/18 Ordered By: Lino Gonsales DS: Summary Status at Discharge Functional status at discharge: uses cane/walker (Recommendation for utilization of walker until symptoms return to baseline. Walker was provided to patient on prior hospital discharge.) Overall status at discharge: patient is back to baseline Mental Status: mental status grossly normal Speech and Movement: speech and movement normal Mood: congruent mood Affect: normal affect Exam Psych Mental Status: mental status grossly normal Speech and Movement: speech and movement normal Mood: congruent mood Affect: normal affect DS: Data Vitals/I&O Vitals and I&O: Vital Signs Temperature 36.8 C 12/28/18 16:12 Temperature Source Temporal Artery Scan 12/28/18 16:12 Pulse 85 12/28/18 16:12 Pulse Rhythm Regular 12/28/18 09:32 Pulse 57 L 12/25/18 20:45 Respiratory Rate 18 12/28/18 11:30 Respiratory Effort Non-Labored 12/28/18 09:32 Respiratory Depth Normal 12/28/18 09:32 Respiratory Pattern Normal 12/28/18 09:32 Blood Pressure 107/74 12/28/18 16:12 Blood Pressure Mean 70 12/25/18 20:45 Blood Pressure Position Sitting 12/25/18 16:27 Pulse Oximetry 96 12/28/18 11:30 Oxygen Delivery Method Room Air 12/28/18 11:30 Oxygen Flow Rate 0 12/28/18 11:30 Pain Level 0 12/28/18 11:30 Comment 12/28/18 09:43 Intake & Output 12/27/18 12/28/18 12/28/18 23:59 11:59 23:59 Intake Total 2243.333 / 3343.333 500 / 740 240 / 740 Output Total 1999 1400 / 2600 1200 / 2600 Balance 243.333 / -381.667 -900 / -1860 -960 / -1860 Intake: IV 1303.333 / 2283.333 Oral 940 / 1060 480 / 720 240 / 720 Output: Urine 1999 1400 / 2600 1200 / 2600 Other: Urine Color Pale Yellow Yellow Urine Appearance Clear Clear Clear Urine Odor None Normal Normal Comment UA obtained. Pt denies sx. Stool Size Large Stool Characteristics Soft Formed Brown Voiding Methods Toilet Bedside Commode Bedside Commode Data Completed and Pending Labs on day of discharge: Labs from last 24 hours 12/28/18 12/28/18 12/28/18 09:35 06:35 06:35 Sodium 141 Potassium 3.7 Chloride 107 Carbon Dioxide 24.2 Anion Gap 9.8 BUN 7 Creatinine 0.78 Estimated GFR/1.73 m2 >= 60.00 Glucose 91 Calcium 8.2 L Magnesium 1.9 Urine Color Yellow Urine Clarity Clear Urine pH 6.5 Ur Specific Eighty Eight 1.010 Urine Protein Negative Urine Ketones Negative Urine Blood Trace-intact H Urine Nitrite Negative Urine Bilirubin Negative Urine Urobilinogen 0.2 Ur Leukocyte Esterase Negative Urine RBC 0-2 Urine WBC Negative Ur Epithelial Cells Moderate Urine Crystals Negative Urine Bacteria Rare Urine Casts Negative Urine Mucus Negative Ur Culture Indicated? No Urine Glucose Negative A.phagocytophil DNA PCR Pending B. divergens/MO-1 PCR Pending Babesia duncani (PCR) Pending Babesia microti DNA PCR Pending Borrelia (PCR) Pending Lyme Disease Antibody Pending E.chaffeensis DNA (PCR) Pending E.ewingii/canis DNA PCR Pending E. muris-like DNA (PCR) Pending 12/28/18 10:10 Blood Blood Culture - Pending 12/28/18 10:10 Blood Blood Culture - Pending Preliminary micro results at discharge 12/28/18 10:10 Blood Culture - Pending Blood 12/28/18 10:10 Blood Culture - Pending Blood [facility] Medical History Acne (Inactive 04/21/13) Asthma (Chronic) Back pain (Resolved) Taking prednisone 60mg QD for 4 days. Currently on day 2. Not feeling it is making much of a difference but she was encouraged to take for the full 4 days. Also suggested she take the muscle relaxer only PRN as it makes her quite drowsy. Encouraged to take at night. To help with rest. Other valenzuela, suggested she increse Aleve to AM & PM dose, then supplement with 1000mg Acetaminophen every 4-6 hours up to a total of 4000mg/day. Suggested ice might help more than heat but either should be limited to only 20 minutes at a time. Use topicals (Solopas Gel or Aspercreame with Lidocaine seem to be quite helpful. Try to avoid sitting or standing still for prolonged periods of time. Walking on flat ground is encourage. TAMARA II (cervical intraepithelial neoplasia II) (Resolved 02/07/16) (-)ECC; two areas on ectocervix (+)CIN2 s/p hyst Depression (Chronic) Takes Fluoxetine 20mg QD with good impact on her depression, denies any SI. Encouraged to continue. to try to tame a hoiurde. Gastroesophageal reflux disease (Chronic) Gestational diabetes mellitus (Inactive) High ankle sprain of right lower extremity (Resolved) Tobacco use (Resolved 10/15/14) quit 01/2016 Vertigo (Acute) Surgical History ANAL SURGERY surgical drainage of anal fissure Dilation and curettage X 2 with losses discectomy (~2003) Endometrial Ablation (~2009) History of bilateral ligation of fallopian tubes (Inactive) History of discectomy (Inactive) Ligation of fallopian tube S/P endometrial ablation (Resolved) irregular bleeding has restarted, neg EM bx 01/2016 Status post dilation and curettage (Resolved) Family History Mother Hyperlipidemia Thyroid disorder Father Essential hypertension Diabetes Personal history of malignant neoplasm prostate Heart disease Hyperlipidemia Myocardial infarction Social History Smoking/Tobacco Use Status: Former Tobacco Use Quit Date: 12/15/15 Alcohol Intake: never Drug use: Never Household members: family and other Details: Lives with demented mother and her brother current occupation: [employer]; [employer] in summer Do you feel safe at home: Yes Additional Social history: 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
--- NOTE | 2018-12-28 17:51 | PDOC.CMDIS ---
- If Service Date Differs Date of service: 12/28/18 Time of Service: 17:51 LACE Index Scoring Tool - Questions: Length of Stay (in days): 3 Acuity (Admit via E.D.?): Yes E.D. Visits: 6 - Answers: Total Score: 10 Risk of Readmission: High Risk Care Management Discharge Reason for Hospitalization: Orthostatic Hypotension/Near Syncope Discharge Plan: Janessa is being discharge home today. She states she was hopeful to meet with psychiatrisit on Sunday. She does have follow up with Neuology and primary care on Sunday. CM sent an email to CCC at [facility] to assist Janessa in meeting with BHT at the primary care office. Janessa states she did not go to her last appointment with neurologist because she had to work. She states she has had several stressors at home including recent seperation with her spouse after 25 years. [place] but has to stay with her Mom to care for her. She states before she has this last episode she had been told by her spouse that the realtionship may be over. She feels that she has been more anxious and depressed lately she states she oftens stays in bed when she has the day off from work and when she is not caring for her mom. Janessa is open to meeting with BHT and she states she will follow up with primary care on Sunday. CM will follow up with CCC and patient on Sunday to follow up prior to her apointments. Patient/Family Education Needs: Discharge education, self management and importance of follow up. - MH Services (Omit if N/A) Current MH Services: Other (BHT at primary care)
--- NOTE | 2018-12-30 08:17 | PT.INDS ---
Date of service: 12/30/18 PT Notes Inpatient Physical Therapy Discharge Summary Dates: 12/30/2018 Dates of Service: 12/26/2018 through 12/20/2018 This is a clinical summary of care provided on the duration of dates listed above. No charge was made in the completion of this documentation. Referring Doctor: Chadwick Epps MD PT Orders: PT CONSULT: Near syncope, recurrent dizziness, vestibular dysfunction Precautions: Fall. Standard. Activity as tolerated. Patient Profile/Admitting Diagnosis: Patient is a 43-year-old lady who presented to the ED on 12/25/2018 with chief complaints of near syncopal episode mild diaphoresis, and dizziness while eating at a restaurant in [place]. Received skilled PT services and received testing for BPPV with inconclusive result on 10/22/2018 and 10/23/2018. She is diagnosed with nonspecific paroxysmal spells, dizziness, reticulocyte cardia, hypokalemia, right left abdominal quadrant pain and orthostatic hypotension. PMHX: Medical History (Updated 12/25/18 @ 23:50 by Chadwick Epps MD) Acne (Inactive 04/21/13) Asthma (Chronic) Back pain (Resolved) Taking prednisone 60mg QD for 4 days. Currently on day 2. Not feeling it is making much of a difference but she was encouraged to take for the full 4 days. Also suggested she take the muscle relaxer only PRN as it makes her quite drowsy. Encouraged to take at night. To help with rest. Other valenzuela, suggested she increse Aleve to AM & PM dose, then supplement with 1000mg Acetaminophen every 4-6 hours up to a total of 4000mg/day. Suggested ice might help more than heat but either should be limited to only 20 minutes at a time. Use topicals (Solopas Gel or Aspercreame with Lidocaine seem to be quite helpful. Try to avoid sitting or standing still for prolonged periods of time. Walking on flat ground is encourage. TAMARA II (cervical intraepithelial neoplasia II) (Resolved 02/07/16) (-)ECC; two areas on ectocervix (+)CIN2 s/p hyst Depression (Chronic) Takes Fluoxetine 20mg QD with good impact on her depression, denies any SI. Encouraged to continue. to try to tame a hoiurde. Gastroesophageal reflux disease (Chronic) Gestational diabetes mellitus (Inactive) High ankle sprain of right lower extremity (Resolved) Tobacco use (Resolved 10/15/14) quit 01/2016 Vertigo (Acute) Surgical History (Updated 12/25/18 @ 23:42 by Chadwick Epps MD) ANAL SURGERY surgical drainage of anal fissure Dilation and curettage X 2 with losses discectomy (~2003) Endometrial Ablation (~2009) History of bilateral ligation of fallopian tubes (Inactive) History of discectomy (Inactive) Ligation of fallopian tube S/P endometrial ablation (Resolved) irregular bleeding has restarted, neg EM bx 01/2016 Status post dilation and curettage (Resolved) Social History/Home Situation: Patient lives with mother in her mother's mobilie home with three steps to enter and a rail on the right going up. She states that she has been taking care of her mother but has [facility] [[email or web address]] staff come in to help her on days that that she would go to [facility] to work. She reports that she has 5 grown children who all ave been living on their own. 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 Current Functional Limitations: Limited and impaired mobility performance due to reports of dizziness Equipment Owned/DME: [employer] Subjective: NT. Please refer to DITCH INSPECTOR notes on 12/28/2018. Objective: General Observation: NT. Please refer to DITCH INSPECTOR notes on 12/28/2018. Mental Status: NT. Please refer to DITCH INSPECTOR notes on 12/28/2018. Pain: NT. Please refer to DITCH INSPECTOR notes on 12/28/2018. ROM: Right Upper Extremity: Shoulder Flexion WFL. Shoulder abduction WFL. Elbow flexion WFL. Wrist flexion WFL. Functional opening and closing of hand WFL. Left Upper Extremity: Shoulder Flexion WFL. Shoulder abduction WFL. Elbow flexion WFL. Wrist flexion WFL. Functional opening and closing of hand WFL. Right Lower Extremity: Hip flexion WFL. Hip abduction WFL. Knee flexion WFL. Ankle dorsiflexion WFL. Ankle plantarflexion WFL. Left Lower Extremity: Hip flexion WFL. Hip abduction WFL. Knee flexion WFL. Ankle dorsiflexion WFL. Ankle plantarflexion WFL. Strength: Right Upper Extremity: Shoulder flexors 5/5. Shoulder abductors 5/5. Elbow flexors 5/5. Elbow extensors 5/5. Checker And Packer strong. Left Upper Extremity: Shoulder flexors 5/5. Shoulder abductors 5/5. Elbow flexors 5/5. Elbow extensors 5/5. Checker And Packer strong. Right Lower Extremity: Hip flexors 5/5. Hip abductors 5/5. Knee flexors 4/5. Knee extensors 5/5. Ankle dorsiflexors 4/5. Ankle plantarflexors 4/5. Left Lower Extremity:Hip flexors 5/5. Hip abductors 5/5. Knee flexors 4/5. Knee extensors 5/5. Ankle dorsiflexors 4/5. Ankle plantarflexors 3+/5. Sensation: Intact as to pain and pressure on bilateral lower extremities. Bed Mobility/Transfers: Rolling independent Supine to sit independent Sit to supine independent Sit to stand SBA Stand to sit SBA Bed to chair SBA Chair to bed SBA Gait: As of 12/20/2018 patient was able to tolerate 50 feet +150 feet of level surface ambulation with FW W with SBA without sway noted. Balance: Static Sitting: Good Dynamic Sitting: Good Static Standing: Fair Dynamic Standing: Fair Assessment: Patient is a 43-year-old lady who presented to the ED on 12/25/2018 with near syncopal episode. Patient continues to present with clinical signs and symptoms consistent with current/admitting diagnoses that have resulted to mobility limitations, gait instability, and impairment of motor control as demonstrated by the following impairment level findings: 1. Dizziness 2. Impaired standing balance 3. Impaired activity tolerance Impairments are contributing to the following functional limitations: 1. Inability to safely ambulate without assistive device and physical assistance 2. Increase completion time for mobility ADL performance 3. Increased fall risk 4. Inability to negotiate steps alone safely Goals: Goals X1 week 1. Independent gait on level surface with out an assistive device for at least 300 feet without report of pain nor dyspnea MET 2. Independent stair negotiation while holding onto bilateral rails for at least 10 steps without report of pain nor dyspnea MET 3. Independent with home exercise program MET 4. Good static and dynamic standing balance/tolerance MET DISCHARGE RECOMMENDATIONS: Patient will benefit from home health PT services in order to progress mobility level using least restrictive assistive ambulatory device, assess home safety, identify additional equipment needs, and establish a functional maintenance program that will increase ability of patient to remain at home. Patient has FWW at home which she can use to maximize mobility performance. TREATMENT CODE/TIME: FERNANDO Thank you very much for this referral. Gaby Marquez PT, DPT, CLT [facility]
[2018-12-30 12:28] LABS: Lyme Ab w Rflx to Lyme Confirm Negative
[2018-12-30 12:28] LABS: Lyme Ab w Rflx to Lyme Confirm Negative
[2018-12-30 22:29] LABS: Anaplasma phagocytophilum Negative (Negative); B. miyamotoi PCR Negative (Negative); Babesia divergens/MO-1 Negative (Negative); Babesia duncani Negative (Negative); Babesia microti Negative (Negative); Ehrlichia chaffeensis Negative (Negative); Ehrlichia ewingii/canis Negative (Negative); Ehrlichia muris eauclairensis Negative (Negative)
== END 2018-12-28 17:10 | disposition home or self-care (01) | DRG 312 ==
LOC: ER 22:27 → MS 12-26 00:27
PROVIDERS: Internal Medicine; Admitting Provider Family Medicine; Emergency Provider Physician Assistant; PCP Family Medicine; Visit Provider Internal Medicine
DX: I95.1 Orthostatic hypotension (principal); R40.4 Transient alteration of awareness; R00.1 Bradycardia, unspecified; E87.6 Hypokalemia; R10.31 Right lower quadrant pain; R50.9 Fever, unspecified; R09.81 Nasal congestion; J34.89 Other specified disorders of nose and nasal sinuses; F32.9 Major depressive disorder, single episode, unspecified; K21.9 Gastro-esophageal reflux disease without esophagitis; J45.909 Unspecified asthma, uncomplicated
CPT/HCPCS: 36415; 80048; 80053; 80307; 83690; 87040; 87449; 87798; 93005; 96360; 96361; 97110; 97112; 97162; 97530; 99220; 99232; 99238; 99285; J1650; 71046; 81003; 81015; 83735; 84484; 84703; 85025; 85379; 86618; 93010; 99225; 99284; G0378; J2405

== ENCOUNTER 2019-01-23 10:10 | Emergency (ER) | payer MEDICAID, SELFPAY ==
[2019-01-23 10:18] VITALS: BP 101/69; PULSE 79; RESP 18; TEMP 36.8; O2SAT 97
--- NOTE | 2019-01-23 10:38 | DI.CT_ITS ---
EXAM: CT ABDOMEN PELVIS W CLINICAL HISTORY: Nausea vomiting, right lower quadrant pain TECHNIQUE: CT examination of the abdomen pelvis was performed with bolus infusion 100 cc of Omnipaqu e 350 and ingestion of dilute barium. COMPARISON: CT ABDOMEN PELVIS W from 10/19/2018 CT BRAIN NECK CTA from 11/01/2018 FINDINGS: Images obtained through the lung bases are clear. Liver, spleen and pancreas appear intact. Gallbla dder and bile ducts are CT normal. Adrenals and kidneys are unremarkable except for previously noted presumed right renal cyst. Abdominal aorta is of normal diameter and no major vascular abnormality is seen. No abdominal or pelvic adenopathy. Small fat-containing bilateral inguinal hernias noted. Appendix is normal. No evidence of diverticulitis or bowel obstruction. Rounded fluid attenuation mass again seen in the left lower quadrant, which is nonspecific but unchanged from the examination o f October 19. There is wall thickening of duodenal bulb and descending duodenum as well as the transvers e duodenum with some fold thickening noted. Possibility of duodenitis is raised, other etiologies inc luding duodenal neoplastic disease not excluded but less likely. Correlation with endoscopy recommen ded. IMPRESSION: Findings raising the possibility of duodenitis versus other duodenal wall pathology including neoplas tic disease. Correlation with endoscopy recommended.
--- NOTE | 2019-01-23 10:40 | ED.GENADUL_ITS ---
Discharge Plan Disposition Patient Disposition: HOME Condition: Improving Discharge Details Chief Complaint: Nausea/Vomit/Diar Clinical Impression: Abdominal pain Primary Care Provider: Sarah Beltrán ED Provider: James Sanchez Home Meds and New Rx's Prescriptions: Continued albuterol sulfate 90 mcg/actuation HFA aerosol inhaler 2 puff IH Q6H PRNRF: 0 epinephrine 0.3 mg/0.3 mL auto-injector 0.3 mg IM ONCE Qty: 1 RF: 0 sumatriptan succinate 50 mg tablet 50 mg PO PRN MDD 100mg Qty: 30 RF: 1 meclizine 25 mg tablet 25 mg PO TID PRN (Reason: dizziness) Qty: 30 RF: 0 fluticasone propionate [Flonase Allergy Relief] 50 mcg/actuation spray,suspension 2 spray TRISTAN DAILY Qty: 18.2 RF: 2 fexofenadine 180 mg tablet 180 mg PO DAILY Qty: 30 RF: 5 cetirizine [All Day Allergy (cetirizine)] 10 mg tablet 10 mg PO DAILY Qty: 90 RF: 3 fluoxetine 20 mg capsule 20 mg PO DAILY Qty: 90 RF: 3 lansoprazole 30 mg capsule,delayed release(DR/EC) 30 mg PO DAILY Qty: 90 RF: 3 Discharge Instructions Instructions: Abdominal Pain (ED) Additional Instructions: You may slowly advance your diet as tolerated and continue to take your daily prescribed medications. Stay well-hydrated and get plenty of rest and return immediately to the emergency department for any new or significant worsening of symptoms. Otherwise follow-up with your primary care provider if not improving and general surgery for further testing as discussed. Stand Alone Forms: Work Release Referrals: Sarah Beltrán MD [Primary Care Provider] - (As needed for reassessment or if not improving) Cris Landaverde MD [ [facility] STAFF PHYSICIAN] - (Call the office next week for arrangement of follow-up appointment and any further testing as needed) Medical Decision Making Patient presenting to the emergency department for chief complaint of nausea and lightheadedness. Patient states that she had episode of nausea and belly pain yesterday evening with an episode of vomiting. Today while at work she had some lightheadedness. Due to this she is presenting to the emergency department. Patient does report getting the flu shot a couple days ago but denies any fever chills, diarrhea, chest pain or shortness of breath. Physical exam shows tenderness to the right lower quadrant of the abdomen otherwise unremarkable physical exam. Plan to check labs, CT imaging, and give patient IV fluids, Toradol, Zofran. Review of labs show unremarkable CBC, CMP with very slightly low potassium at 3.2 otherwise nondiagnostic, UA is also nondiagnostic and non-worrisome. Review of CT imaging and speaking with radiologist shows some mild circumferential wall thickening of the duodenum otherwise no other acute findings noted. Radiologist did recommend upper endoscopy given that patient continues to have intermittent episodes of this abdominal pain so patient placed upon list for general surgery follow-up and further testing as needed. I do not feel that the duodenal thickening is causing patient's symptoms of right lower quadrant pain today. Otherwise patient reassessed and does state some improvement of her symptoms. Given this I do feel patient is able to be safely discharged with close return precautions. After discussion of diagnosis and plan of care patient has no further needs, questions, or concerns and states clear understanding to return to the emergency department for any worsening symptoms. HPI General Mode of arrival: ambulatory . Date/Time Provider Initiated Documentation: 01/23/19 10:18 . Limitations to Documentation: no limitations . Information obtained by: patient and RN notes reviewed . History of Present Illness 43 year old F presents to the emergency department with the chief complaint of Nausea vomiting, not feeling well, described as moderate, with intensity rated at 6. Quality is described as aching, and is localized to the abdomen. Patient started experiencing this day(s) (1) and it has been constant. No relieving factors improve symptom(s), Other factors that worsen symptoms (Received flu shot the other day) . Patient did receive the following treatments prior to arrival, none Related Data Home Medications Medication Instructions Recorded Confirmed albuterol sulfate 90 mcg/actuation 2 puff IH Q6H PRN 12/05/17 01/23/19 aerosol inhaler epinephrine 0.3 mg/0.3 mL 0.3 mg IM ONCE #1 each 12/05/17 01/23/19 injection, auto-injector meclizine 25 mg tablet 25 mg PO TID PRN #30 tab 04/23/18 01/23/19 sumatriptan succinate 50 mg tablet 50 mg PO PRN #30 tab MDD 100mg 04/23/18 01/23/19 cetirizine 10 mg tablet 10 mg PO DAILY #90 tab 08/12/18 01/23/19 fluoxetine 20 mg capsule 20 mg PO DAILY #90 cap 08/12/18 01/23/19 lansoprazole 30 mg capsule,delayed 30 mg PO DAILY #90 cap 08/12/18 01/23/19 release fexofenadine 180 mg tablet 180 mg PO DAILY #30 tab 12/31/18 01/23/19 fluticasone propionate 50 2 spray TRISTAN DAILY #18.2 ml 12/31/18 01/23/19 mcg/actuation nasal spray,suspension Previous Rx's Medication Instructions Recorded epinephrine 0.3 mg/0.3 mL 0.3 mg IM ONCE #1 each 12/05/17 injection, auto-injector meclizine 25 mg tablet 25 mg PO TID PRN #30 tab 04/23/18 sumatriptan succinate 50 mg tablet 50 mg PO PRN #30 tab MDD 100mg 04/23/18 cetirizine 10 mg tablet 10 mg PO DAILY #90 tab 08/12/18 fluoxetine 20 mg capsule 20 mg PO DAILY #90 cap 08/12/18 lansoprazole 30 mg capsule,delayed 30 mg PO DAILY #90 cap 08/12/18 release fexofenadine 180 mg tablet 180 mg PO DAILY #30 tab 12/31/18 fluticasone propionate 50 2 spray TRISTAN DAILY #18.2 ml 12/31/18 mcg/actuation nasal spray,suspension Allergies Allergy/AdvReac Type Severity Reaction Status Date / Time venom-honey bee Allergy Severe Verified 01/23/19 10:22 Sulfa (Sulfonamide Allergy HIVES Verified 01/23/19 10:22 Antibiotics) General Stated Complaint: Nausea/Vomit/Diar MIKE: 3 Review of Systems Constitutional Constitutional: Denies chills, Denies fever(s) and Reports poor appetite Cardiovascular Cardiovascular: Denies chest pain, Denies syncope, Denies irregular heart rhythm, Reports lightheadedness and Denies dyspnea Respiratory Respiratory: Denies cough and Denies dyspnea Gastrointestinal Gastrointestinal: Reports as per HPI, Reports abdominal pain, Denies melena, Denies change in bowel habits, Denies constipation, Denies diarrhea, Reports nausea and Reports vomiting Genitourinary Genitourinary: Denies hematuria and Denies dysuria Integumentary/Breasts Skin/Breast: Denies rash Neurologic Neurologic: Denies syncope [facility] Medical History Acne (Inactive 04/21/13) Asthma (Chronic) Back pain (Resolved) Taking prednisone 60mg QD for 4 days. Currently on day 2. Not feeling it is making much of a difference but she was encouraged to take for the full 4 days. Also suggested she take the muscle relaxer only PRN as it makes her quite drowsy. Encouraged to take at night. To help with rest. Other valenzuela, suggested she increse Aleve to AM & PM dose, then supplement with 1000mg Acetaminophen every 4-6 hours up to a total of 4000mg/day. Suggested ice might help more than heat but either should be limited to only 20 minutes at a time. Use topicals (Solopas Gel or Aspercreame with Lidocaine seem to be quite helpful. Try to avoid sitting or standing still for prolonged periods of time. Walking on flat ground is encourage. TAMARA II (cervical intraepithelial neoplasia II) (Resolved 02/07/16) (-)ECC; two areas on ectocervix (+)CIN2 s/p hyst Depression (Chronic) Takes Fluoxetine 20mg QD with good impact on her depression, denies any SI. Encouraged to continue. to try to tame a hoiurde. Gastroesophageal reflux disease (Chronic) Gestational diabetes mellitus (Inactive) High ankle sprain of right lower extremity (Resolved) Tobacco use (Resolved 10/15/14) quit 01/2016 Vertigo (Acute) Surgical History ANAL SURGERY surgical drainage of anal fissure Dilation and curettage X 2 with losses discectomy (~2003) Endometrial Ablation (~2009) History of bilateral ligation of fallopian tubes (Inactive) History of discectomy (Inactive) Ligation of fallopian tube S/P endometrial ablation (Resolved) irregular bleeding has restarted, neg EM bx 01/2016 Status post dilation and curettage (Resolved) Family History Mother Hyperlipidemia Thyroid disorder Father Essential hypertension Diabetes Personal history of malignant neoplasm prostate Heart disease Hyperlipidemia Myocardial infarction Social History (Reviewed 01/23/19 @ 12:19 by RIVAS Chi Smoking/Tobacco Use Status: Former Tobacco Use Quit Date: 12/15/15 Alcohol Intake: never Drug use: Never Household members: family and other Details: Lives with demented mother and her brother 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; [employer]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 Do you feel safe at home: Yes Do you feel safe in your relationship?: Yes Additional Social history: 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 [employer] Exam Const General: cooperative Orientation: alert, awake and oriented x3 Resp Effort & Inspection: normal respiratory effort and able to speak in complete sentences Auscultation: clear to auscultation bilaterally Cardio Rate: regular rate Rhythm: regular rhythm Heart Sounds: S1 normal and S2 normal GI Palpation: soft, no hepatosplenomegaly, not firm, no guarding, no masses, no pulsatile masses, not rigid, no splenomegaly and tender in the RLQ and at McBurney's point; Zamora's sign negative and psoas sign negative Auscultation: normal bowel sounds Back/Spine/Pelvis Back: no CVA tenderness Neuro General: alert, awake, oriented x3, gait normal and moves all extremities Course Vital Signs Vital signs: Vital Signs Temperature 36.8 C 01/23/19 10:18 Pulse 79 01/23/19 10:18 Respiratory Rate 18 01/23/19 10:18 Blood Pressure 101/69 01/23/19 10:18 Pulse Oximetry 97 01/23/19 10:18 Temperature 36.8 C 01/23/19 10:18 Temperature Source Temporal Artery Scan 01/23/19 10:18 Pulse 79 01/23/19 10:18 Respiratory Rate 18 01/23/19 10:18 Respiratory Effort Non-Labored 01/23/19 10:21 Blood Pressure 101/69 01/23/19 10:18 Blood Pressure Position Supine 01/23/19 10:18 Pulse Oximetry 97 01/23/19 10:18 Oxygen Delivery Method Room Air 01/23/19 10:18 Oxygen Flow Rate 0 01/23/19 10:18 Pain Level 6 01/23/19 10:18
[2019-01-23] MEDS: Normal Saline 1,000 ML 1000 ML IV (10:45)
[2019-01-23] MEDS: Ondansetron 4 MG/2 ML VIAL IVP (10:50)
[2019-01-23] MEDS: Ketorolac 15 MG/ML VIAL IVP (10:55)
[2019-01-23 11:01] LABS: Abs Immature Grans 0.02 k/cumm (0.0-0.09); Absolute Basophil Count 0.01 k/cumm (0.0-0.2); Absolute Lymphocyte Count 1.52 k/cumm (1.2-3.4); Absolute Monocyte Count 0.44 k/cumm (0.11-0.7); Basophils % 0.2; Eosinophils % 1.8; HCT 40.4 % (36.0-46.0); HGB 13.8 g/dL (12.0-15.5); Immature Grans % 0.4; Lymphocytes % 27.2; Mean Corp. HGB Concentration 34.2 g/dL (32.0-36.0); Mean Corpuscular Hemoglobin 29.9 pg (27.0-33.0); Mean Corpuscular Volume 87.6 fL (80-95); Mean Platelet Volume 11.7 fL (8.0-11.0); Monocytes % 7.9; Neutrophils % 62.5; Platelet Count 238 x1000/uL (130-400); RBC 4.61 m/cumm (4.00-5.20); RBC Distribution Width 12.9 % (11.7-14.6); White Blood Cell Count 5.59 k/cumm (4.4-10.8)
[2019-01-23 11:19] LABS: ALT 30 U/L (14-59); AST 26 U/L (15-37); Albumin 3.7 g/dL (3.4-5.0); Alkaline Phosphatase 96 U/L (46-116); BUN 9 mg/dL (7-18); Bilirubin, Total 0.7 mg/dL (0.2-1.0); CREATININE 0.94 mg/dL (0.55-1.02); Calcium 8.8 mg/dL (8.5-10.1); Chloride 104 mmol/L (98-107); Glucose 100 mg/dL (70-100); Lipase 155 U/L (73-393); Magnesium 1.8 mg/dL (1.8-2.4); Potassium 3.2 mmol/L (3.5-5.1); Sodium 142 mmol/L (136-145); Total Protein 7.5 g/dL (6.4-8.2)
[2019-01-23 11:40] LABS: Bilirubin Negative (Negative); Blood Trace-intact (Negative); Clarity Clear (Clear); Glucose Negative (Negative); Ketones Negative (Negative); Leukocyte Esterase Negative (Negative); Nitrite Negative (Negative); Specific Gravity 1.015 (1.005-1.025); Urobilinogen 0.2 EU/dL (Up TO 0.2); pH 6.5 (5-8)
[2019-01-23 11:47] LABS: Epithelial Cells Moderate HPF (Negative); RBC 0-2 (0-2); WBC 0-2 HPF (0-5)
[2019-01-23 11:48] LABS: Bacteria Moderate HPF (Negative); C & S Indicated? No; Casts Negative LPF (Negative); Crystals Negative HPF (Negative); Mucus Trace (Negative)
[2019-01-23 13:14] VITALS: BP 104/67; PULSE 64; RESP 16; O2SAT 100
[2019-01-23 14:00] VITALS: BP 104/67; PULSE 64; RESP 16; TEMP 36.8; O2SAT 100
--- NOTE | 2019-01-23 17:48 | NUR.NOTE ---
Nursing Note: Referral faxed to [facility] for follow up for duodenal inflammation and recommended endoscopy. Mansi Elizabeth.
== END 2019-01-23 16:10 | disposition home or self-care (01) ==
PROVIDERS: Emergency Provider Nurse Practitioner Family; PCP Family Medicine
DX: R10.9 Unspecified abdominal pain (principal); R42 Dizziness and giddiness
CPT/HCPCS: 36415; 80053; 83690; 96361; 96374; 96375; 99285; 74177; 81003; 81015; 83735; 85025; 99284; J1885; J2405

== ENCOUNTER 2019-02-06 09:06 | Day surgery (SDC) | payer MEDICAID, SELFPAY ==
[2019-02-06 09:15] VITALS: BP 110/64; PULSE 78; RESP 18; TEMP 36.7; O2SAT 98
[2019-02-06] MEDS: Lactated Ringers 1,000 ML 100 ML IV (10:05)
--- NOTE | 2019-02-06 11:11 | STOM_PTH ---
PATIENT: Janessa Covarrubias LOC: [facility] U#:[id number] AGE/SX: 43/F ROOM: RE02/06/[address]: Eunice Erazo : 1975 BED: DIS: 02/06/2019 SPEC #: [id number] RECD: 02/06/19 12:25 STATUS: [facility] #: [id number] ARY: 02/06/19 11:[address]: Eunice Erazo DEPT: Surgical Specimen RECD BY: Elle Teresa ENTERED: 02/06/19 12:27 SP TYPE: STOMACH OTHR DR: Sarah Beltrán MD Tissues: 1 - BIOPSY BOWEL 2 - STOMACH BIOPSY 3 - STOMACH BIOPSY 4 - ESOPHAGUS BIOPSY 5 - ESOPHAGUS BIOPSY Procedures: GROSS AND MICRO LEVEL 4 Comments: [id number]
--- NOTE | 2019-02-06 11:22 | W.PM.DSUDISC ---
Discharge Plan Disposition Patient Disposition: HOME Condition: Good Discharge Details Reason For Visit: N/V (R) SIDED ABDOMINAL PAIN Attending Provider: Eunice Erazo Primary Care Provider: Sarah Beltrán Home Meds and New Rx's Prescriptions: New sucralfate [Carafate] 1 gram tablet 1 gm PO QACHS PRN (Reason: abdominal pain or nausea ) Qty: 120 RF: 12 Continued albuterol sulfate 90 mcg/actuation HFA aerosol inhaler 2 puff IH Q6H PRNRF: 0 epinephrine 0.3 mg/0.3 mL auto-injector 0.3 mg IM ONCE Qty: 1 RF: 0 sumatriptan succinate 50 mg tablet 50 mg PO PRN MDD 100mg Qty: 30 RF: 1 meclizine 25 mg tablet 25 mg PO TID PRN (Reason: dizziness) Qty: 30 RF: 0 fluticasone propionate [Flonase Allergy Relief] 50 mcg/actuation spray,suspension 2 spray TRISTAN DAILY Qty: 18.2 RF: 2 fexofenadine 180 mg tablet 180 mg PO DAILY Qty: 30 RF: 5 cetirizine [All Day Allergy (cetirizine)] 10 mg tablet 10 mg PO DAILY Qty: 90 RF: 3 fluoxetine 20 mg capsule 20 mg PO DAILY Qty: 90 RF: 3 Discontinued lansoprazole 30 mg capsule,delayed release(DR/EC) 30 mg PO DAILY Qty: 90 RF: 3 Discharge Instructions Instructions: Diet for Stomach Ulcers and Gastritis (GEN), Gastroesophageal Reflux Disease (GEN) Additional Instructions: Findings:normal Although your exam today was normal- you should still follow lifestyle recommendations for people w/ ulcers or GERD to avoid nausea and heartburn Continue with lifestyle modifications: no alcohol, tobacco products, Aspirin or NSAID's (ibuprofen, Motrin, Naprosyn, aleve, etc). Try to limit: soda pop/any carbonated beverages, caffeine (including tea & chocolate), and acidic foods, (tomatoes, citrus, onions, peppermints) spicy or fried/fatty foods. Do not lie down for 30 minutes after eating, and do not eat 2 hours prior to bedtime. Avoid wearing tight fitting clothing/ belts Added carafate that you can use as needed for heartburn/indigestion and nausea Follow up: in 2-3 weeks. US should be scheduled Please call if you develop: fevers >101.5 Nausea or Vomiting Abdominal pain that is not transient DAY SURGERY UNIT POST COLONOSCOPY INSTRUCTIONS 1. Because there will be medication in your system for the next 24 hours, you may feel a little sleepy. Your coordination will be affected. Therefore: a. Do not drive or operate dangerous equipment for 24 hours. b. Do not drink alcohol beverages for 24 hours (not even beer). c. Plan to go home and rest for the day. 2. Generally there are no restrictions on your activity after a day or so has gone by, but you may feel a bit fatigued for a few days. 3 After you arrive home you may have a light meal and return to a normal diet as you can tolerate it without feeling sick to your stomach. 4. After surgery, you may feel pain or discomfort. This should be only transient, but if it persists please contact your doctor. 5. If there are any questions regarding the findings of your procedure, please feel free to contact your doctor. 6. If you are unable to contact your doctor with a problem, contact the hospital at [phone]. 7. Continue all your regular medications unless directed otherwise. I understand the above instructions and have no questions. Signature of Patient or Responsible Adult Escort Date/Time Name of Responsible Adult Escort Signature of Nurse Date/Time Activity:: no heavy lifting or strenuous activity x 24hrs Diet:: sm light meals x 24 hrs Discharge Orders Discharge Orders: Discharge Order (Routine); Ordered 02/06/19 Ordered By: Eunice Erazo DS: Diagnosis Discharge Diagnosis (1) Nausea and vomiting in adult: Status: Acute
[2019-02-06 11:55] VITALS: BP 106/68; PULSE 75; RESP 16; TEMP 36.4; O2SAT 96
--- NOTE | 2019-02-10 16:22 | W.PM.ENDDOP ---
Date of service: 02/06/19 Time of Service: 12:00 Endoscopy Report DATE OF PROCEDURE: 02/06/19 PRE-OP DIAGNOSIS: med refractory n/v and abnl ct POST-OP DIAGNOSIS: other (gerd ) PROCEDURE: egd W/ BX SURGEON: Eunice Jackson ANESTHESIA: MAC ESTIMATED BLOOD LOSS: 1 PATHOLOGY: other COMPLICATIONS: None DISPOSITION: same day PROCEDURE DESCRIPTION: INDICATIONS: The patient seen at the request of PCP who is here today for an egd for MED REFRACTORY n/v and abnl CT from a recent ED visit. Informed consent was obtained, explaining the risks and benefits of the procedure, including but not limited to bleeding, infection, perforation, aspiration, complications from the anesthesia. DESCRIPTION OF PROCEDURE: The patient was brought to the endoscopy suite and placed in supine. IV and topical anesthesia was administered per the Department of Anesthesia, with constant monitoring of all vital signs. The previously lubricated Olympus scope was inserted into the orophayrnx and passed down into the esophagus. There are no esophageal erosions,varix,diverticuli or strictures apparent. There is no hiatal hernia. The scope is passed into the stomach and through the pylorus- which is freely patent. The duodenum is normal. The scope is passed into the second portion of the duodenum. Bile is visualized and appears grossly normal. Bx is taken of the duodenal bulb. The stomach is grossly normal no polyps/masses/gastris. Bx are taken of the,antrum, and greater curvature. Biopsy are taken of the G-E junction and of the distal esophagus. All the specimens were retrieved, and there was no bleeding noted. The cords appeared normal. The patient tolerated the procedure well and transferred to the recovery room in stable condition. EUNICE JACKSON D.O.
== END 2019-02-06 12:30 | disposition home or self-care (01) ==
PROVIDERS: PCP Family Medicine; Visit Provider Surgery
PROC: 0DJ68ZZ Inspection of Stomach, Via Natural or Artificial Opening Endoscopic (ICD-10-PCS; CPT 43235; principal; 2019-02-06 09:45)
DX: R10.31 Right lower quadrant pain (principal); R11.2 Nausea with vomiting, unspecified; K21.9 Gastro-esophageal reflux disease without esophagitis; K31.89 Other diseases of stomach and duodenum; R93.5 Abnormal findings on diagnostic imaging of other abdominal regions, including retroperitoneum
CPT/HCPCS: 43239; 88305; J2250; J3010

== ENCOUNTER 2019-02-12 17:33 | Emergency (ER) | payer MEDICAID, SELFPAY ==
[2019-02-12] VITALS (20 sets, daily range): BP systolic 96–118; BP diastolic 53–76; PULSE 85–99; RESP 14–26; TEMP 37.2; O2SAT 98–100
--- NOTE | 2019-02-12 17:45 | W.ED.GENAD ---
Discharge Plan Disposition Patient Disposition: HOME Condition: Good Discharge Details Chief Complaint: GenMedical Clinical Impression: URI (upper respiratory infection) Primary Care Provider: Sarah Beltrán ED Provider: Ronit Easton Home Meds and New Rx's Prescriptions: New benzonatate [Tessalon Perles] 100 mg capsule 100 mg PO TID PRN (Reason: cough) Qty: 10 RF: 0 Continued albuterol sulfate 90 mcg/actuation HFA aerosol inhaler 2 puff IH Q6H PRNRF: 0 epinephrine 0.3 mg/0.3 mL auto-injector 0.3 mg IM ONCE Qty: 1 RF: 0 sumatriptan succinate 50 mg tablet 50 mg PO PRN MDD 100mg Qty: 30 RF: 1 meclizine 25 mg tablet 25 mg PO TID PRN (Reason: dizziness) Qty: 30 RF: 0 fluticasone propionate [Flonase Allergy Relief] 50 mcg/actuation spray,suspension 2 spray TRISTAN DAILY Qty: 18.2 RF: 2 fexofenadine 180 mg tablet 180 mg PO DAILY Qty: 30 RF: 5 cetirizine [All Day Allergy (cetirizine)] 10 mg tablet 10 mg PO DAILY Qty: 90 RF: 3 sucralfate [Carafate] 1 gram tablet 1 gm PO QACHS PRN (Reason: abdominal pain or nausea ) Qty: 120 RF: 12 Discharge Instructions Instructions: Upper Respiratory Infection (ED) Additional Instructions: Encourage hydration. Tylenol and ibuprofen as needed for discomfort. You may continue with your inhalers as needed if you develop wheezing or asthma symptoms. May use the Tessalon Perles as prescribed to help with cough. Please follow-up with primary care next week for reevaluation symptoms persist. Please keep your upcoming appoint with general surgery to discuss her chronic abdominal pain. If you develop new or worsening symptoms please seek care urgently once again. Stand Alone Forms: Work Release Referrals: Sarah Beltrán MD [Primary Care Provider] - Discharge Data Discharge Date/Time-TO BE ENTERED AT DEPARTURE: 02/12/19 20:50 Medical Decision Making Patient is a 43-year-old female with history of upper kalemia, hypomagnesemia, bradycardia, dizziness, orthostatic hypotension, GERD, asthma, depression. She presents today with chief complaint of URI symptoms with chest pain and shortness of breath that began today. Her primary concern at this point is shortness of breath and chest pain she is also endorsing sore throat. Has chronic abdominal pain that is unchanged. Is been having chills today but no fevers. No recent travel. No hormone use. Patient status post hysterectomy. Familial history concerning for father having DVT per patient's report. Symptoms are nonexertional. She also feels that her asthma has been exacerbated today. Has been using her albuterol inhaler without improvement of her symptoms. On exam, patient appears nontoxic. Her lungs are clear. Normal cardiac exam. Distal pulses are intact. Plan to obtain baseline labs. Patient is tachycardic and does bump to the 120s with ambulation. As PE is on the differential, plan to obtain a d-dimer. EKG was reviewed by Dr. Cabrera. Patient is tachycardic 109 but otherwise no acute ischemic changes are noted. Patient is influenza negative. Labs significant for mild to suggest a white count of 13.8. D-dimer slightly elevated at 582. Potassium is 3.4. Magnesium 1.7. Labs are otherwise unremarkable. Discussed these findings with the patient. I have low suspicion for pulmonary embolism at this time but will move forward with CTA given the elevated d-dimer, tachycardia, shortness of breath. Discussed this with the patient, we discussed risks and benefits and she to would like to move forward with imaging. FINDINGS: Pulmonary arteries: There is mild respiratory motion artifact at the lung bases which disrupts evaluation of the distal pulmonary arterial segmental branches at this level. Otherwise, there is no evidence of pulmonary emboli appreciated. Aorta: Unremarkable. No aortic aneurysm. No aortic dissection. Lungs: The lungs are clear. Pleural space: Unremarkable. No pneumothorax. No pleural effusion. Heart: Unremarkable. No cardiomegaly. No pericardial effusion. Lymph nodes: Unremarkable. No enlarged lymph nodes. Bones/joints: No acute abnormality or aggressive osseous lesion. Soft tissues: Unremarkable. Other findings: The visualized intra-abdominal structures demonstrate no acute findings. IMPRESSION: Mild respiratory motion artifact at the lung bases disrupts evaluation of the distal pulmonary arterial segmental branches at this level. Otherwise, there is no evidence of pulmonary emboli appreciated. No acute thoracic pathology otherwise appreciated. Discussed these findings with the patient and her significant other. Advised that the labs are otherwise reassuring. Her symptoms are most indicative of her developing a URI particularly as her is sick with similar illness. Encourage hydration. She will be prescribed Tessalon Perles to help with symptom medic management. Advised to be continue with her asthma medication. She is given return precautions. Advise follow-up with primary care in 1 week if not improved. All the questions and concerns were addressed and she is in agreement this plan. HPI General Mode of arrival: ambulatory. Date/Time Provider Initiated Documentation: 02/12/19 17:41. Limitations to Documentation: no limitations. Information obtained by: patient, family and RN notes reviewed. HPI Narrative: Patient is a 43-year-old female presenting today with multiple complaints. Her primary concern is shortness of breath and chest discomfort that began this morning. Is also endorsing mild sore throat. States she been having a cough but is not bringing anything up with her cough. Patient is an active smoker. She reports chronic, unchanged abdominal pain. Underwent EGD recently and has a follow-up appointment for chronic abdominal pain in 2 days. Denies any fevers but states she has been having chills. Coming by significant other who also has been ill. She does report family history of cardiac disease and blood clots at early age. Denies any recent travel. No hormone therapy. Patient is status post hysterectomy. Related Data Home Medications Medication Instructions Recorded Confirmed albuterol sulfate 90 mcg/actuation 2 puff IH Q6H PRN 12/05/17 02/12/19 aerosol inhaler epinephrine 0.3 mg/0.3 mL 0.3 mg IM ONCE #1 each 12/05/17 02/12/19 injection, auto-injector meclizine 25 mg tablet 25 mg PO TID PRN #30 tab 04/23/18 02/12/19 sumatriptan succinate 50 mg tablet 50 mg PO PRN #30 tab MDD 100mg 04/23/18 02/12/19 cetirizine 10 mg tablet 10 mg PO DAILY #90 tab 08/12/18 02/12/19 fexofenadine 180 mg tablet 180 mg PO DAILY #30 tab 12/31/18 02/12/19 fluticasone propionate 50 2 spray TRISTAN DAILY #18.2 ml 12/31/18 02/12/19 mcg/actuation nasal spray,suspension sucralfate [Carafate] 1 gm PO QACHS PRN #120 tab 02/06/19 benzonatate [Tessalon Perles] 100 mg PO TID PRN #10 cap 02/12/19 Previous Rx's Medication Instructions Recorded epinephrine 0.3 mg/0.3 mL 0.3 mg IM ONCE #1 each 12/05/17 injection, auto-injector meclizine 25 mg tablet 25 mg PO TID PRN #30 tab 04/23/18 sumatriptan succinate 50 mg tablet 50 mg PO PRN #30 tab MDD 100mg 04/23/18 cetirizine 10 mg tablet 10 mg PO DAILY #90 tab 08/12/18 fexofenadine 180 mg tablet 180 mg PO DAILY #30 tab 12/31/18 fluticasone propionate 50 2 spray TRISTAN DAILY #18.2 ml 12/31/18 mcg/actuation nasal spray,suspension sucralfate [Carafate] 1 gm PO QACHS PRN #120 tab 02/06/19 benzonatate [Tessalon Perles] 100 mg PO TID PRN #10 cap 02/12/19 Allergies Allergy/AdvReac Type Severity Reaction Status Date / Time venom-honey bee Allergy Severe Verified 02/12/19 17:40 Sulfa (Sulfonamide Allergy HIVES Verified 02/12/19 17:40 Antibiotics) General Stated Complaint: GenMedical MIKE: 3 Review of Systems Constitutional Constitutional: Reports as per HPI, Denies chills, Denies fever(s), Denies headache(s), Denies lethargy and Denies poor appetite Eyes Eyes: Denies change in vision ENT Ears, Nose, Mouth, and Throat: Denies dizziness and Denies headache(s) Cardiovascular Cardiovascular: Reports as per HPI, Reports dyspnea and Denies dyspnea on exertion Respiratory Respiratory: Reports as per HPI, Denies chest congestion, Reports cough, Denies hemoptysis, Denies excessive phlegm production, Denies pain on inspiration, Reports pain with cough, Reports dyspnea, Denies dyspnea on exertion and Reports wheezing (reports feeling tight and assoicates with her asthma) Gastrointestinal Gastrointestinal: Reports as per HPI, Reports abdominal pain (chronic, unchanged), Reports constipation, Denies diarrhea, Denies nausea and Denies vomiting Musculoskeletal Musculoskeletal: Reports as per HPI and Denies back pain Integumentary/Breasts Skin/Breast: Reports as per HPI and Denies rash Neurologic Neurologic: Reports as per HPI, Denies dizziness and Denies headache(s) Allergic/Immunologic Allergic/Immunologic: Reports wheezing (reports feeling tight and assoicates with her asthma) [facility] Medical History Abnormal CT of the abdomen (Acute) Acne (Inactive 04/21/13) Asthma (Chronic) Back pain (Resolved) Taking prednisone 60mg QD for 4 days. Currently on day 2. Not feeling it is making much of a difference but she was encouraged to take for the full 4 days. Also suggested she take the muscle relaxer only PRN as it makes her quite drowsy. Encouraged to take at night. To help with rest. Other valenzuela, suggested she increse Aleve to AM & PM dose, then supplement with 1000mg Acetaminophen every 4-6 hours up to a total of 4000mg/day. Suggested ice might help more than heat but either should be limited to only 20 minutes at a time. Use topicals (Solopas Gel or Aspercreame with Lidocaine seem to be quite helpful. Try to avoid sitting or standing still for prolonged periods of time. Walking on flat ground is encourage. TAMARA II (cervical intraepithelial neoplasia II) (Resolved 02/07/16) (-)ECC; two areas on ectocervix (+)CIN2 s/p hyst Depression (Chronic) Takes Fluoxetine 20mg QD with good impact on her depression, denies any SI. Encouraged to continue. to try to tame a hoiurde. Gastroesophageal reflux disease (Chronic) Gestational diabetes mellitus (Inactive) High ankle sprain of right lower extremity (Resolved) N&V (nausea and vomiting) (Acute) Nausea and vomiting in adult (Acute) RLQ abdominal tenderness (Acute) Tobacco use (Resolved 10/15/14) quit 01/2016 Vertigo (Acute) Surgical History ANAL SURGERY surgical drainage of anal fissure Dilation and curettage X 2 with losses discectomy (~2003) Endometrial Ablation (~2009) History of bilateral ligation of fallopian tubes (Inactive) History of discectomy (Inactive) History of hysterectomy (Chronic) Ligation of fallopian tube S/P endometrial ablation (Resolved) irregular bleeding has restarted, neg EM bx 01/2016 Status post dilation and curettage (Resolved) Social History Smoking/Tobacco Use Status: Former Tobacco Use Quit Date: 12/15/15 Alcohol Intake: never Drug use: Never Household members: family and other Details: Lives with demented mother and her brother current occupation: [employer]; [employer]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 Additional Social history: 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 [employer] Exam Const General: cooperative, healthy appearing, comfortable, no acute distress and well developed Nutritional Appearance: average body habitus and well nourished Orientation: alert, awake and oriented x3 HENMT Head: normal to inspection, normocephalic and atraumatic Ears: hearing grossly normal bilaterally, external ears normal and TM's normal bilaterally General nose exam: external nose normal, nares normal and no nasal polyps Face and sinus: normal facial exam, sinuses nontender and face symmetric Mouth: oral mucosae normal, lip normal, tongue normal, moist mucous membranes, no muffled voice and no trismus Teeth and gingiva: dentition normal and gingiva normal Throat: posterior oropharynx normal, tonsils normal and uvula midline Eyes General: appearance normal, both eyes and all related structures Neck Neck: normal visual inspection, full ROM, no lymphadenopathy and no meningeal signs Chest Chest: normal inspection of the chest, normal palpation of entire chest wall and no crepitus Resp Effort & Inspection: normal respiratory effort, able to speak in complete sentences and no respiratory distress Auscultation: clear to auscultation bilaterally, no rales, no rhonchi and no wheezes Cardio Rate: regular rate Rhythm: regular rhythm Heart Sounds: S1 normal and S2 normal GI Inspection: normal to inspection, no edema and non-distended Palpation: soft, no hepatosplenomegaly, not firm, no guarding, not rigid and tender (diffuse tenderness) Auscultation: normal bowel sounds Back/Spine/Pelvis Back: no CVA tenderness Thoracic/Lumbar Spine: thoracic and lumbar spine normal to inspection Skin General skin exam: no rashes or lesions noted Trauma: no lacerations or abrasions Neuro General: alert, awake and oriented x3 Cognition: normal cognition Speech: speech normal Gait: normal gait Extrem General: normal to inspection, normal capillary refill, no pedal edema, no calf tenderness and normal gait Psych Appearance: grossly normal and well kempt Mental Status: mental status grossly normal Speech and Movement: speech and movement normal Course Vital Signs Vital signs: Vital Signs Temperature 37.2 C 02/12/19 17:36 Pulse 97 H 02/12/19 17:36 Respiratory Rate 20 02/12/19 17:36 Temperature 37.2 C 02/12/19 17:36 Temperature Source Axillary 02/12/19 17:36 Pulse 97 H 02/12/19 17:36 Respiratory Rate 20 02/12/19 17:36 Respiratory Effort 02/12/19 17:41 Pain Level 10 02/12/19 17:36
[2019-02-12] MEDS: Normal Saline Flush 10 ML SYR IVP (18:29)
[2019-02-12] MEDS: Normal Saline 1,000 ML 1000 ML IV ×2 (18:35→20:04)
[2019-02-12 18:45] LABS: Abs Immature Grans 0.05 k/cumm (0.0-0.09); Absolute Basophil Count 0.01 k/cumm (0.0-0.2); Absolute Eosinophil Count 0.07 k/cumm (0.0-0.7); Absolute Monocyte Count 0.81 k/cumm (0.11-0.7); Basophils % 0.1; Eosinophils % 0.5; HCT 45.6 % (36.0-46.0); HGB 15.1 g/dL (12.0-15.5); Immature Grans % 0.4; Lymphocytes % 13.3; Mean Corp. HGB Concentration 33.1 g/dL (32.0-36.0); Mean Corpuscular Hemoglobin 28.8 pg (27.0-33.0); Mean Corpuscular Volume 86.9 fL (80-95); Mean Platelet Volume 11.3 fL (8.0-11.0); Monocytes % 5.8; Neutrophils % 79.9; Platelet Count 289 x1000/uL (130-400); RBC 5.25 m/cumm (4.00-5.20); RBC Distribution Width 12.7 % (11.7-14.6); White Blood Cell Count 13.88 k/cumm (4.4-10.8)
[2019-02-12 18:48] LABS: Absolute Lymphocyte Count 1.85 k/cumm (1.2-3.4); Absolute Neutrophil Count 11.09 k/cumm (1.2-6.7)
[2019-02-12 18:59] LABS: ALT 34 U/L (14-59); AST 30 U/L (15-37); Alkaline Phosphatase 105 U/L (46-116); Anion Gap 10.3 mmol/L (3-11); BUN 8 mg/dL (7-18); Bilirubin, Total 0.4 mg/dL (0.2-1.0); CO2 26.7 mmol/L (21.0-32.0); CREATININE 0.88 mg/dL (0.55-1.02); Calcium 9.1 mg/dL (8.5-10.1); Chloride 102 mmol/L (98-107); Glucose 97 mg/dL (70-100); Magnesium 1.7 mg/dL (1.8-2.4); Potassium 3.4 mmol/L (3.5-5.1); Sodium 139 mmol/L (136-145); Total Protein 8.1 g/dL (6.4-8.2)
[2019-02-12 19:04] LABS: Troponin I < 0.05 ng/mL (0.00-0.06)
[2019-02-12 19:07] LABS: D-Dimer 582 ng/mlFEU (<500)
--- NOTE | 2019-02-12 19:17 | DI.CT_ITS ---
EXAM: CT CHEST PE CTA CLINICAL HISTORY: SOB, CP, tachy, elevated d-dimer TECHNIQUE: 70 cc of Omnipaque 350. Axial CT angiography was performed with multi-slice acquisition and multi-planar and/or 3D reconstruc tions. COMPARISON: CT ABDOMEN PELVIS W from 01/23/2019 FINDINGS: The exam is somewhat limited by respiratory motion at the lung bases. No pulmonary artery or emboli or aortic dissection is seen. The lungs are clear. No pneumothorax, infiltrate, pleural or pericar dial effusion is seen. There is no evidence of adenopathy. No thoracic compression fractures are se en. The visualized portions of the upper abdomen are unremarkable. IMPRESSION: Negative chest CT. No evidence of pulmonary emboli or other acute abnormality.
[2019-02-12] MEDS: Omnipaque 350 MG/ML 100 ML BTL IJ (19:35)
--- NOTE | 2019-02-12 20:26 | DI.VRAD_ITS ---
PROCEDURE INFORMATION: Exam: CT Angiography Chest With Contrast Exam date and time: 02/12/2019 7:18 PM Clinical history: 43 years old, female; Shortness of breath TECHNIQUE: Imaging protocol: Computed tomographic angiography of the chest with intravenous contrast. 3D rendering: MIP reconstructed images were created and reviewed. Radiation optimization: All CT scans at this facility use at least one of these dose optimization techniques: automated exposure control; mA and/or kV adjustment per patient size (includes targeted exams where dose is matched to clinical indication); or iterative reconstruction. Contrast material: OMNIPAQUE 350; Contrast volume: 70 ml; Contrast route: IV; COMPARISON: CT CHEST FOR PULMONARY EMBOLUS 08/03/2017 12:59 PM FINDINGS: Pulmonary arteries: There is mild respiratory motion artifact at the lung bases which disrupts evaluation of the distal pulmonary arterial segmental branches at this level. Otherwise, there is no evidence of pulmonary emboli appreciated. Aorta: Unremarkable. No aortic aneurysm. No aortic dissection. Lungs: The lungs are clear. Pleural space: Unremarkable. No pneumothorax. No pleural effusion. Heart: Unremarkable. No cardiomegaly. No pericardial effusion. Lymph nodes: Unremarkable. No enlarged lymph nodes. Bones/joints: No acute abnormality or aggressive osseous lesion. Soft tissues: Unremarkable. Other findings: The visualized intra-abdominal structures demonstrate no acute findings. IMPRESSION: Mild respiratory motion artifact at the lung bases disrupts evaluation of the distal pulmonary arterial segmental branches at this level. Otherwise, there is no evidence of pulmonary emboli appreciated. No acute thoracic pathology otherwise appreciated. Dictated and Authenticated by: Alfredo Shepherd MD. Ordering:JAQUAN Cottrell MD
== END 2019-02-12 20:50 | disposition home or self-care (01) ==
PROVIDERS: Emergency Provider Physician Assistant; PCP Family Medicine
DX: J06.9 Acute upper respiratory infection, unspecified (principal)
CPT/HCPCS: 36415; 71275; 80053; 87449; 93005; 96360; 99285; 83735; 84484; 85025; 85379; 93010; J3490

== ENCOUNTER 2019-02-25 00:43 | Outpatient (CLI) | payer MEDICAID, SELFPAY ==
--- NOTE | 2019-02-25 08:16 | DI.US_ITS ---
EXAM: US ABDOMEN CLINICAL HISTORY: R sided abd pain, nausea, vomiting, R10.9, R11.2, CONSTIPATION TECHNIQUE: Ultrasound abdomen performed using standard protocol. COMPARISON: No exams were available for comparison FINDINGS: LIVER: Normal size and echogenicity. No focal liver lesions are seen.. GALLBLADDER: A 15 millimeter stone and other smaller additional stones are noted in the gallbladder. No evidence of wall thickening. No pericholecystic fluid identified. KIDNEYS: Kidneys are symmetric in size. No evidence of renal calculi. No evidence of hydronephrosis. No renal mass. A 2.1 x 2.5 x 3.6 centimeters simple cyst is seen at the lower pole of the right kidn ey. BILIARY SYSTEM: No intrahepatic or extrahepatic biliary ductal dilation. MCKINNEY'S SIGN: Negative. PANCREAS: Normal where visualized. SPLEEN: Not enlarged. ABDOMINAL AORTA AND IVC: Visualized portions normal caliber. ASCITES: None seen. IMPRESSION: Cholelithiasis. No evidence of acute cholecystitis.
== END 2019-02-25 01:03 ==
PROVIDERS: PCP Family Medicine; Visit Provider Surgery
DX: R10.31 Right lower quadrant pain (principal); K80.20 Calculus of gallbladder without cholecystitis without obstruction; R11.2 Nausea with vomiting, unspecified; K59.00 Constipation, unspecified
CPT/HCPCS: 76700

== ENCOUNTER 2019-03-19 11:29 | Emergency (ER) | payer MEDICAID, SELFPAY ==
[2019-03-19 11:33] VITALS: BP 115/82; PULSE 98; RESP 18; TEMP 36.5; O2SAT 98
--- NOTE | 2019-03-19 11:42 | ED.GENADUL_ITS ---
Discharge Plan Disposition Patient Disposition: HOME Condition: Stable Discharge Details Chief Complaint: Abd Prob Clinical Impression: Cholelithiasis, Abdominal pain Primary Care Provider: Sarah Beltrán ED Provider: Chadwick Wan Home Meds and New Rx's Prescriptions: New ondansetron 4 mg tablet,disintegrating 4 mg PO Q8H PRN (Reason: nausea and vomiting) Qty: 30 RF: 0 Continued ondansetron HCl 8 mg tablet 8 mg PO TID PRN (Reason: nausea and vomiting) Qty: 60 RF: 0 albuterol sulfate 90 mcg/actuation HFA aerosol inhaler 2 puff IH Q6H PRNRF: 0 epinephrine 0.3 mg/0.3 mL auto-injector 0.3 mg IM ONCE Qty: 1 RF: 0 sumatriptan succinate 50 mg tablet 50 mg PO PRN MDD 100mg Qty: 30 RF: 1 fluticasone propionate [Flonase Allergy Relief] 50 mcg/actuation spray,suspension 2 spray TRISTAN DAILY Qty: 18.2 RF: 2 fexofenadine 180 mg tablet 180 mg PO DAILY Qty: 30 RF: 5 lansoprazole [Prevacid] 30 mg capsule,delayed release(DR/EC) 30 mg PO DAILY RF: 0 sucralfate [Carafate] 1 gram tablet 1 gm PO QACHS RF: 0 cetirizine [All Day Allergy (cetirizine)] 10 mg tablet 10 mg PO DAILY Qty: 90 RF: 3 meclizine 25 mg tablet 25 mg PO TID PRN (Reason: dizziness) Qty: 30 RF: 0 Discharge Instructions Instructions: Biliary Colic (ED) Additional Instructions: follow up with general surgery as scheduled you can take 1000mg tylenol and 600mg ibuprofen every 6 hours for pain as needed if you feel worsening pain, feel more ill or have high fevers return to the emergency department Stand Alone Forms: Work Release Medical Decision Making 43 yo female with known gallstones comes in from general surery office with 24 hours of abdominal pain and n/v. She is shceduled to have cholecystectomy on 03/31 per patient. She denies chest pain, fevers. Has not been able to keep any fluids down. She has ruq tenderness on exam no other pain elsewhere. Suspect biliary colic, will obtain lab work and imaging and monitor. labs unremarkable, and imaging shows stones otherwise no acute findings no findings to suggest cholecystitis. Has ruq pain without howard's sign. will d/c and advised to f/u with general surgery for her surgery and return precautions given Differential Diagnosis Differential Diagnosis: biliary colic, cholecystitis, pancreatitis Imaging Data Radiologic Study: Attestation: I personally reviewed and interpreted this imaging study as follows: Imaging: Ultrasound Radiologist's impression: gallstones, otherwise no acute changes from prior imaging Lab Data Lab results reviewed: Yes I reviewed the patient's lab results. HPI General Mode of arrival: ambulatory . Date/Time Provider Initiated Documentation: 03/19/19 11:38 . Limitations to Documentation: no limitations . Information obtained by: patient . History of Present Illness 43 year old F presents to the emergency department with the chief complaint of nausea and vomit, described as moderate, and it has been constant. No relieving factors improve symptom(s), No exacerbating factors reported . Patient notes other (abdominal pain). Patient did receive the following treatments prior to arrival, none Related Data Home Medications Medication Instructions Recorded Confirmed albuterol sulfate 90 mcg/actuation 2 puff IH Q6H PRN 12/05/17 03/19/19 aerosol inhaler epinephrine 0.3 mg/0.3 mL 0.3 mg IM ONCE #1 each 12/05/17 03/19/19 injection, auto-injector sumatriptan succinate 50 mg tablet 50 mg PO PRN #30 tab MDD 100mg 04/23/18 03/19/19 cetirizine 10 mg tablet 10 mg PO DAILY #90 tab 08/12/18 03/19/19 fexofenadine 180 mg tablet 180 mg PO DAILY #30 tab 12/31/18 03/19/19 fluticasone propionate 50 2 spray TRISTAN DAILY #18.2 ml 12/31/18 03/19/19 mcg/actuation nasal spray,suspension ondansetron HCl 8 mg tablet 8 mg PO TID PRN #60 tab 02/14/19 03/19/19 lansoprazole 30 mg capsule,delayed 30 mg PO DAILY 02/19/19 03/19/19 release sucralfate 1 gram tablet 1 gm PO QACHS tab 02/19/19 03/19/19 meclizine 25 mg tablet 25 mg PO TID PRN #30 tab 03/13/19 03/19/19 ondansetron 4 mg PO Q8H PRN #30 tab 03/19/19 Previous Rx's Medication Instructions Recorded epinephrine 0.3 mg/0.3 mL 0.3 mg IM ONCE #1 each 12/05/17 injection, auto-injector sumatriptan succinate 50 mg tablet 50 mg PO PRN #30 tab MDD 100mg 04/23/18 cetirizine 10 mg tablet 10 mg PO DAILY #90 tab 08/12/18 fexofenadine 180 mg tablet 180 mg PO DAILY #30 tab 12/31/18 fluticasone propionate 50 2 spray TRISTAN DAILY #18.2 ml 12/31/18 mcg/actuation nasal spray,suspension ondansetron HCl 8 mg tablet 8 mg PO TID PRN #60 tab 02/14/19 meclizine 25 mg tablet 25 mg PO TID PRN #30 tab 03/13/19 ondansetron 4 mg PO Q8H PRN #30 tab 03/19/19 Allergies Allergy/AdvReac Type Severity Reaction Status Date / Time venom-honey bee Allergy Severe Verified 03/19/19 11:40 Sulfa (Sulfonamide Allergy HIVES Verified 03/19/19 11:40 Antibiotics) General Stated Complaint: Abd Prob MIKE: 3 Review of Systems All systems reviewed & are unremarkable except as noted in HPI and below Constitutional Constitutional: Denies chills, Denies fever(s) and Denies weakness ENT Ears, Nose, Mouth, and Throat: Denies change in voice Cardiovascular Cardiovascular: Denies chest pain and Denies dyspnea Respiratory Respiratory: Denies cough and Denies dyspnea Musculoskeletal Musculoskeletal: Denies joint swelling Neurologic Neurologic: Denies weakness Psychiatric Psychiatric: Denies depression [facility] Medical History (Updated 03/07/19 @ 14:41 by Eunice Erazo DO) Abnormal CT of the abdomen (Acute) Acne (Inactive 04/21/13) Asthma (Chronic) Back pain (Resolved) Taking prednisone 60mg QD for 4 days. Currently on day 2. Not feeling it is making much of a difference but she was encouraged to take for the full 4 days. Also suggested she take the muscle relaxer only PRN as it makes her quite drowsy. Encouraged to take at night. To help with rest. Other valenzuela, suggested she increse Aleve to AM & PM dose, then supplement with 1000mg Acetaminophen every 4-6 hours up to a total of 4000mg/day. Suggested ice might help more than heat but either should be limited to only 20 minutes at a time. Use topicals (Solopas Gel or Aspercreame with Lidocaine seem to be quite helpful. Try to avoid sitting or standing still for prolonged periods of time. Walking on flat ground is encourage. TAMARA II (cervical intraepithelial neoplasia II) (Resolved 02/07/16) (-)ECC; two areas on ectocervix (+)CIN2 s/p hyst Depression (Chronic) Takes Fluoxetine 20mg QD with good impact on her depression, denies any SI. Encouraged to continue. to try to tame a hoiurde. Gallstones without obstruction of gallbladder (Acute) Gastroesophageal reflux disease (Chronic) GERD (gastroesophageal reflux disease) (Chronic) Gestational diabetes mellitus (Inactive) High ankle sprain of right lower extremity (Resolved) N&V (nausea and vomiting) (Acute) Nausea and vomiting in adult (Acute) RLQ abdominal tenderness (Acute) Tobacco use (Resolved 10/15/14) quit 01/2016 Vertigo (Acute) Surgical History (Updated 02/18/19 @ 14:26 by Sherry Marcus RN) ANAL SURGERY surgical drainage of anal fissure Dilation and curettage X 2 with losses discectomy (~2003) Endometrial Ablation (~2009) History of bilateral ligation of fallopian tubes (Inactive) History of discectomy (Inactive) History of esophagogastroduodenoscopy (EGD) (Chronic ~01/2019) History of hysterectomy (Chronic) Ligation of fallopian tube S/P endometrial ablation (Resolved) irregular bleeding has restarted, neg EM bx 01/2016 Status post dilation and curettage (Resolved) Social History Smoking/Tobacco Use Status: Former Tobacco Use Quit Date: 12/15/15 Alcohol Intake: never Drug use: Never Household members: family and other Details: Lives with demented mother and her brother 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; [employer]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 Additional Social history: 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 [employer] Exam Const General: no acute distress Orientation: alert HENMT Head: normal to inspection Ears: external ears normal General nose exam: external nose normal Mouth: moist mucous membranes Eyes General: appearance normal, both eyes and all related structures Neck Neck: normal visual inspection Resp Effort & Inspection: normal respiratory effort and able to speak in complete sentences Cardio Rate: regular rate GI Palpation: soft Skin General skin exam: no rashes or lesions noted Neuro General: alert and oriented x3 Extrem General: normal to inspection Psych Mental Status: mental status grossly normal Course Vital Signs Vital signs: Vital Signs Temperature 36.5 C 03/19/19 11:33 Pulse 98 H 03/19/19 11:33 Respiratory Rate 18 03/19/19 11:33 Blood Pressure 115/82 03/19/19 11:33 Pulse Oximetry 98 03/19/19 11:33 Temperature 36.5 C 03/19/19 11:33 Temperature Source Temporal Artery Scan 03/19/19 11:33 Pulse 98 H 03/19/19 11:33 Respiratory Rate 18 03/19/19 11:33 Respiratory Effort Non-Labored 03/19/19 11:38 Blood Pressure 115/82 03/19/19 11:33 Blood Pressure Position Sitting 03/19/19 11:33 Pulse Oximetry 98 03/19/19 11:33 Oxygen Delivery Method Room Air 03/19/19 11:33 Oxygen Flow Rate 0 03/19/19 11:33 Pain Level 9 03/19/19 11:33
[2019-03-19] MEDS: Ondansetron 4 MG/2 ML VIAL IVP (12:10)
[2019-03-19] MEDS: Ketorolac 15 MG/ML VIAL IVP (12:10)
[2019-03-19] MEDS: Normal Saline 1,000 ML 1000 ML IV (12:10)
--- NOTE | 2019-03-19 12:13 | DI.US_ITS ---
EXAM: US ABDOMEN CLINICAL HISTORY: right upper abdominal pain TECHNIQUE: Ultrasound performed using standard protocol. COMPARISON: US ABDOMEN from 02/25/2019 FINDINGS: The exam was limited by bowel gas. The liver is normal in size and echogenicity. A nonmobile stone measuring 1.4 cm is seen in the neck of the gallbladder. There is borderline gallbladder wall thick ening of 2.7 millimeters. There is no abnormal gallbladder distention or pericholecystic fluid. The re is no biliary dilatation. The right kidney shows a cyst. No hydronephrosis is seen. The spleen is normal in size. There is no ascites. IMPRESSION: Nonmobile stone in the gallbladder neck. No definite evidence acute cholecystitis.
[2019-03-19 12:19] LABS: Abs Immature Grans 0.01 k/cumm (0.0-0.09); Absolute Basophil Count 0.01 k/cumm (0.0-0.2); Absolute Eosinophil Count 0.08 k/cumm (0.0-0.7); Absolute Lymphocyte Count 1.56 k/cumm (1.2-3.4); Absolute Monocyte Count 0.31 k/cumm (0.11-0.7); Absolute Neutrophil Count 3.41 k/cumm (1.2-6.7); Basophils % 0.2; Eosinophils % 1.5; HGB 13.8 g/dL (12.0-15.5); Immature Grans % 0.2; Mean Corp. HGB Concentration 33.7 g/dL (32.0-36.0); Mean Corpuscular Hemoglobin 28.9 pg (27.0-33.0); Mean Corpuscular Volume 85.8 fL (80-95); Mean Platelet Volume 11.1 fL (8.0-11.0); Monocytes % 5.8; Neutrophils % 63.3; Platelet Count 278 x1000/uL (130-400); RBC 4.78 m/cumm (4.00-5.20); RBC Distribution Width 13.1 % (11.7-14.6); White Blood Cell Count 5.38 k/cumm (4.4-10.8)
[2019-03-19 12:35] LABS: ALT 23 U/L (14-59); AST 22 U/L (15-37); Albumin 3.4 g/dL (3.4-5.0); Alkaline Phosphatase 84 U/L (46-116); Anion Gap 7.1 mmol/L (3-11); BUN 6 mg/dL (7-18); Bilirubin, Direct 0.09 mg/dL (0.00-0.20); Bilirubin, Total 0.4 mg/dL (0.2-1.0); CO2 27.9 mmol/L (21.0-32.0); CREATININE 0.86 mg/dL (0.55-1.02); Calcium 8.8 mg/dL (8.5-10.1); Chloride 106 mmol/L (98-107); Glucose 139 mg/dL (74-106); Lipase 134 U/L (73-393); Magnesium 1.9 mg/dL (1.8-2.4); Potassium 3.3 mmol/L (3.5-5.1); Sodium 141 mmol/L (136-145); Total Protein 7.1 g/dL (6.4-8.2)
[2019-03-19 12:39] LABS: PTT Activated 25.4 sec (21.0-31.4); Prothrombin Time 10.3 sec (9.3-11.0)
[2019-03-19 13:15] LABS: Bilirubin Negative (Negative); Blood Negative (Negative); Clarity Clear (Clear); Glucose Negative (Negative); Ketones Negative (Negative); Leukocyte Esterase Negative (Negative); Nitrite Negative (Negative); Specific Gravity 1.015 (1.005-1.025); Urobilinogen 0.2 EU/dL (Up TO 0.2)
[2019-03-19 13:30] VITALS: BP 99/54; PULSE 74; RESP 18; TEMP 36.7; O2SAT 99
== END 2019-03-19 13:35 | disposition home or self-care (01) ==
PROVIDERS: Emergency Provider Emergency Medicine; PCP Family Medicine
DX: R10.11 Right upper quadrant pain (principal); R11.2 Nausea with vomiting, unspecified; K80.20 Calculus of gallbladder without cholecystitis without obstruction
CPT/HCPCS: 36415; 80053; 83690; 96361; 96374; 96375; 99284; 76700; 81003; 82248; 83735; 85025; 85610; 85730; J1885; J2405

== ENCOUNTER 2019-03-31 08:37 | Day surgery (SDC) | payer MEDICAID, SELFPAY ==
[2019-03-31] VITALS (10 sets, daily range): BP systolic 106–174; BP diastolic 70–105; PULSE 69–84; RESP 11–23; TEMP 36.4–37; O2SAT 94–100
[2019-03-31] MEDS: Gabapentin 300 MG CAP PO (09:45)
[2019-03-31] MEDS: Acetaminophen 500 MG TAB 1000 MG PO (09:46)
[2019-03-31] MEDS: Lactated Ringers 1,000 ML 120 ML IV ×2 (09:46→14:01)
[2019-03-31] MEDS: ceFAZolin 2 GM/50 ML BAG IVPB (12:39)
[2019-03-31] MEDS: Lidocaine 1% Multi-Dose 50 ML VIAL (13:20)
--- NOTE | 2019-03-31 13:26 | GB_PTH ---
PATIENT: Janessa Covarrubias LOC: [facility] U#:[id number] AGE/SX: 43/F ROOM: RE03/31/[address]: Eunice Erazo : 1975 BED: DIS: 03/31/2019 SPEC #: [id number] RECD: 03/31/19 17:58 STATUS: STEVEN REQ #: [id number] ARY: 03/31/19 13:[address]: Eunice Erazo DEPT: Surgical Specimen RECD BY: Elle Teresa ENTERED: 03/31/19 17:59 SP TYPE: GB OTHR DR: Sarah Beltrán MD Tissues: 1 - GALLBLADDER Procedures: GROSS AND MICRO LEVEL 3 Comments: [id number]
[2019-03-31] MEDS: Cellulose,Oxidized 4X8 1 PACKET MC ×2 (13:31)
--- NOTE | 2019-03-31 14:22 | ROE_ITS ---
Date of service: 03/31/19 Time of Service: 14:22 Operative Note Operative Note DATE OF PROCEDURE: 03/31/19 PRE-OP DIAGNOSIS: chronic gómez w/ stones POST-OP DIAGNOSIS: same PROCEDURE: lap gómez SURGEON: Derik Jackson MANUFACTURING WEAVER: Anna Villalba ANESTHESIA: GETSilver ESTIMATED BLOOD LOSS: 5 PATHOLOGY: other COMPLICATIONS: None Patient was transported to: PACU Patient's condition: stable Procedure Description: CHOLECYSTECTOMY POST-OPERATIVE REPORT PRE-OPERATIVE DIAGNOSIS: cholecystitis, cholelithiasis. POST-OPERATIVE DIAGNOSIS: chronic cholecystitis, cholelithiasis PROCEDURE: Laparoscopic cholecystectomy. SURGEON: Derik Jackson DO ANESTHESIA: General. ESTIMATED BLOOD LOSS: Less than 10 mL COMPLICATIONS: The patient tolerated the procedure without complication. INDICAtions is here today for laparoscopic cholecystectomy. Informed consent was obtained, explaining risks and benefits of the procedure including but not limited to bleeding, infection, pneumonia, blood clots, possible damage to bowel, bladder, blood vessels, bile ducts, possible open procedure, complications of general anesthesia and other unforetold complications. PROCEDURE: The patient agrees and is brought to the operative room suite and placed in supine position. Anesthesia was administered per the Department of Anesthesia. The patient did receive IV antibiotics. NG tube and Jessica catheter are placed. The patient was prepped and draped in the usual sterile fashion using DuraPrep scrub solution. Pause for the cause was done. 20 mL of 1% buffered lidocaine was used for local anesthetization. A stab incision was made in the umbilicus and the Verres inserted. Drop test was positive and insufflation was begun. When 15 mm of pressure was noted on the monitor, the Veress was removed and #5 port inserted. The camera was inserted through the port and shows no damage to underlying structures. A 10 mm port was then placed in the epigastric position under direct visualization following creation of local field blocks as well as two 5 mm ports in the right upper quadrant. The gallbladder fundus was grasped and retracted towards the right shoulder. Infundibulum was grasped and retracted laterally. The hepat-duodenal ligament is entered. The cystic duct and artery are dissected out and the most inferior portion of the gallbladder plate is removed from the liver and the critical view of safety was obtained after clearing away all fatty material. Endo Clips were placed across the duct and artery and these structures are divided. The remainder of the gallbladder was excised from the liver bed. The gallbladder was placed in a bag and brought out. Examination of the gallbladder shows indeed the cystic duct and artery to have been divided. The remainder of the abdomen was copiously irrigated with a liter of saline. All saline is removed. There is no bleeding or bile leakage from the liver bed or the clips sites. The Francisco-Sullivan needle was used to close the 10 mm port site with an 0 Vicryl. She also has a small incidental umbilical hernia. This was repaired with 2 stitches of 0 Vicryl as well in to the fascia. All ports and instruments are removed. Pneumoperitoneum is evacuated and the port sites are monitored to make sure there is no bleeding at the time of desufflation. Port sites are irrigated and the skin is closed with 4-0 Monocryl in a running subcuticular fashion. Steri tapes and sterile dressings are applied. The patient tolerated the procedure well without complications, transferred to the recovery room in stable condition. DERIK JACKSON, DO
--- NOTE | 2019-03-31 14:27 | W.PM.DSUDISC ---
Discharge Plan Disposition Patient Disposition: HOME Condition: Good Discharge Details Reason For Visit: GB removal Attending Provider: Eunice Erazo Primary Care Provider: Sarah Beltrán Home Meds and New Rx's Prescriptions: New ibuprofen [IBU-200] 200 mg tablet 600 mg PO Q6H PRN (Reason: pain) Qty: 90 RF: 2 ondansetron HCl [Zofran] 4 mg tablet 4 mg PO Q6H PRN (Reason: nausea and vomiting) Qty: 4 RF: 0 hydrocodone-acetaminophen [[place]] 5-325 mg tablet 1 tab PO Q4H PRN (Reason: pain) Qty: 14 RF: 0 Continued ondansetron HCl 8 mg tablet 8 mg PO TID PRN (Reason: nausea and vomiting) Qty: 60 RF: 0 albuterol sulfate 90 mcg/actuation HFA aerosol inhaler 2 puff IH Q6H PRNRF: 0 epinephrine 0.3 mg/0.3 mL auto-injector 0.3 mg IM ONCE Qty: 1 RF: 0 sumatriptan succinate 50 mg tablet 50 mg PO PRN MDD 100mg Qty: 30 RF: 1 fluticasone propionate [Flonase Allergy Relief] 50 mcg/actuation spray,suspension 2 spray TRISTAN DAILY Qty: 18.2 RF: 2 fexofenadine 180 mg tablet 180 mg PO DAILY Qty: 30 RF: 5 lansoprazole [Prevacid] 30 mg capsule,delayed release(DR/EC) 30 mg PO DAILY RF: 0 sucralfate [Carafate] 1 gram tablet 1 gm PO QACHS RF: 0 meclizine 25 mg tablet 25 mg PO TID PRN (Reason: dizziness) Qty: 30 RF: 0 ondansetron 4 mg tablet,disintegrating 4 mg PO Q8H PRN (Reason: nausea and vomiting) Qty: 30 RF: 0 Discharge Instructions Additional Instructions: Care after Gallbladder Surgery -You should walk frequently, gradually, increasing the distance. You may climb stairs, just go slowly. -You can take Advil 600mg 4 times a day with food for the first week for pain; you may take your prescription medication as prescribed-in addition to the Advil. Discontinue Advil if it hurts your stomach. Do not take Advil if you are intolerant to aspirin products or have stomach problems. ? Use an ice bag for the first 72 hours. This helps to decrease swelling, which causes pain. It is normal to be more sore/painful and swollen towards the end of the day and first thing in the morning. ? Gallbladder surgery can make you very nauseated; use Zofran for nausea, for the first 24 hours. The nausea generally stops after 24 hours. ? Use milk of magnesia or prune juice to prevent constipation (this is a particular side effect of pain medication). Do not allow yourself to become constipated. ? Avoid fatty or greasy foods; introduce these slowly, with care, after about 1 month. Follow the low-fat diet sheet that will be given to you at the office or hospital. ? Start out eating very small, bland amounts of food. Do not take pain pills on an empty stomach. - You can remove the Band-Aids and take a shower 24 hours after surgery. There will be some narrow strips of tape across your incisions (under the Band-Aids). DO NOT REMOVE THESE. It is all right if they get wet. They will be removed in the doctor?s office. ? Do not go swimming or sit in a hot tube for two weeks. ? Replace the Band-Aids with clean, dry ones or leave them off. ? There are no stitches to remove. ? Do not drive your car for 72hrs and then only if you have no pain and can move freely. Do not drive if you are taking pain narcotic pain medications. ? You may resume sexual activity whenever pain and soreness subside in 2 weeks. ? Do no lift anything over 5 lbs. for the first 10 days. Minimize strenuous activity for the next two weeks. ? You may return to work in one week, or when you feel able ? You should return to Dr. Erazo?s office for a post-op appointment about one week after surgery. Please call the Surgical Clinic at: [phone] to schedule an appointment. My Medications for pain and nausea are: ibuprofen and [place] and zofran When to Call the Office: ? If the incision becomes red or swollen, or there is more than a little drainage from it. ? If you develop a temperature higher than 100.5 F. ? If your eyes turn yellow ? Vomiting and can?t keep fluids down Activity:: no strenuous activity or lifting over 5#'s x 2 wks Remove Dressings/Wound Care:: 24 hours Shower/Bathe:: 24 hours Diet:: low fat diet x 2 wks Discharge Orders Discharge Orders: Discharge Order (Routine); Ordered 03/31/19 Ordered By: Eunice Erazo
[2019-03-31] MEDS: Normal Saline Flush 10 ML SYR IV (14:39)
[2019-03-31] MEDS: Droperidol 5 MG/2 ML VIAL 0.625 MG IVP (14:39)
[2019-03-31] MEDS: fentaNYL 100 MCG/2 ML VIAL IVP (15:01)
== END 2019-03-31 17:05 | disposition home or self-care (01) ==
PROVIDERS: PCP Family Medicine; Visit Provider Surgery
PROC: 0FT44ZZ Resection of Gallbladder, Percutaneous Endoscopic Approach (ICD-10-PCS; CPT 47562; principal; 2019-03-31 10:15)
DX: K80.10 Calculus of gallbladder with chronic cholecystitis without obstruction (principal); K21.9 Gastro-esophageal reflux disease without esophagitis
CPT/HCPCS: 47562; 88304; J0690; J1100; J1790; J1885; J2250; J2405; J3010

== ENCOUNTER 2019-05-12 16:13 | Emergency (ER) | payer MEDICAID, SELFPAY ==
--- NOTE | 2019-05-12 16:16 | W.ED.GENAD ---
Discharge Plan Disposition Patient Disposition: HOME Condition: Good Discharge Details Chief Complaint: Chest Pain Clinical Impression: Atypical chest pain, Muscle pain Primary Care Provider: Sarah Beltrán ED Provider: Ronit Easton Home Meds and New Rx's Prescriptions: New cyclobenzaprine 10 mg tablet 10 mg PO TID PRN (Reason: muscle spasm) Qty: 10 RF: 0 Continued ondansetron HCl 8 mg tablet 8 mg PO TID PRN (Reason: nausea and vomiting) Qty: 60 RF: 0 albuterol sulfate 90 mcg/actuation HFA aerosol inhaler 2 puff IH Q6H PRNRF: 0 epinephrine 0.3 mg/0.3 mL auto-injector 0.3 mg IM ONCE Qty: 1 RF: 0 sumatriptan succinate 50 mg tablet 50 mg PO PRN MDD 100mg Qty: 30 RF: 1 fluticasone propionate [Flonase Allergy Relief] 50 mcg/actuation spray,suspension 2 spray TRISTAN DAILY Qty: 18.2 RF: 2 fexofenadine 180 mg tablet 180 mg PO DAILY Qty: 30 RF: 5 lansoprazole [Prevacid] 30 mg capsule,delayed release(DR/EC) 30 mg PO DAILY RF: 0 sucralfate [Carafate] 1 gram tablet 1 gm PO QACHS RF: 0 ondansetron 4 mg tablet,disintegrating 4 mg PO Q8H PRN (Reason: nausea and vomiting) Qty: 30 RF: 2 meclizine 25 mg tablet 25 mg PO TID PRN (Reason: dizziness) Qty: 30 RF: 0 ibuprofen [IBU-200] 200 mg tablet 600 mg PO Q6H PRN (Reason: pain) Qty: 90 RF: 2 ondansetron HCl [Zofran] 4 mg tablet 4 mg PO Q6H PRN (Reason: nausea and vomiting) Qty: 4 RF: 0 hydrocodone-acetaminophen [[place]] 5-325 mg tablet 1 tab PO Q4H PRN (Reason: pain) Qty: 14 RF: 0 Discharge Instructions Instructions: Chest Pain (ED), Musculoskeletal Pain (ED) Additional Instructions: Encourage water intake. Tylenol and/or ibuprofen as needed for discomfort. You may augment this with the Flexeril as prescribed for muscle spasm. Please follow-up with primary care at the end of the week for reevaluation. Labs and imaging are reassuring at this time. However, if you develop increased pain, shortness of breath, fever/chills, difficulty breathing or other new/worsening symptoms please seek care urgently once again. Stand Alone Forms: School Release Referrals: Sarah Beltrán MD [Primary Care Provider] - Discharge Data Discharge Date/Time-TO BE ENTERED AT DEPARTURE: 05/12/19 21:35 Medical Decision Making Patient is 44-year-old female presenting today with chief complaint of chest pain. She reports the pain began when she woke from a nap at noon. States the pain is been consistent since that time. Finds it worse with movement of her left arm, any type of twisting movement, cough. She denies shortness of breath. States that she has had recent cough and known flu contact. Patient has past medical history significant for GERD, hypokalemia, hypomagnesemia, orthostatic hypotension, vertigo, asthma, depression. States she is never had pain like this historically. She does not feel short of breath. No recent travel. Denies any fevers. Denies any nausea or vomiting. No pain rating into her back. On exam, patient appears very anxious. Her lungs are clear, normal cardiac exam. Normal abdominal exam. She is exquisitely tender to palpation over the chest wall. She has good distal pulses in the left upper extremity. Patient is endorsing some tingling in the left arm and has exquisite tenderness with movement of his arm. She denies history of DVT. Patient will be given ASA. Initial EKG was reviewed by Dr. Asher. Patient had a rate of 95, normal sinus rhythm. Patient has abnormalities in V6 and V5 but this appears to be a problem with the EKG itself these are not consistent, will need to repeat the EKG. Otherwise, findings are without significant abnormality. Contacted by the lab. Patient has a potassium of 2.8. Ordered 40 p.o. and 20 IV replenishment. Labs otherwise without significant abnormality. Initial troponin is less than 0.05. No other electrolyte abnormalities. Kidney function is normal. No leukocytosis. D-dimer is still pending. D-dimer within normal limits Chest x-ray reviewed by radiologist: FINDINGS: Lungs: Unremarkable. No consolidation. Pleural space: Unremarkable. No pleural effusion. No pneumothorax. Heart/Mediastinum: Unremarkable. No cardiomegaly. Bones/joints: Unremarkable for patient's age. IMPRESSION: No acute cardiopulmonary findings. Repeat EKG was reviewed by Dr. Asher. I did 76 and was clear without any artifact at this time. Patient is in normal sinus rhythm with a rate of 72. She advises no acute ischemic changes are noted. Reexamined the patient. At this time, the pain is primarily over the trapezius where the patient does feel tight. She has good range of motion of the shoulder but this does increase the pain over the trapezius. Patient given Valium and feels much improved. Patient is ready for discharge at this time. She reports feeling much improved. Again, we discussed this is likely muscular related. Encourage gentle stretching. Encouraged close follow-up with primary care. Encourage water intake. Will prescribe Flexeril to be used as needed. Advised she should not drive will take this medication. She is given strict return precautions. All of her questions and concerns were addressed and she is in agreement this plan. HPI General Mode of arrival: ambulatory. Date/Time Provider Initiated Documentation: 05/12/19 16:16. Limitations to Documentation: no limitations. Information obtained by: patient and RN notes reviewed. History of Present Illness 44 year old F presents to the emergency department with the chief complaint of chest pain, described as severe, with intensity rated at 9. Quality is described as stabbing, and is localized to the chest. Patient extremity (to left shoulder). Patient started experiencing this hour(s) (4) and it has been constant. Immobilization improves symptom(s), Movement worsens symptoms . Patient notes cough (states recent exposure to flu); denies fever/chills, headaches, loss of appetite, nausea/vomiting, rash, shortness of breath and weakness. Patient did receive the following treatments prior to arrival, none Related Data Home Medications Medication Instructions Recorded Confirmed albuterol sulfate 90 mcg/actuation 2 puff IH Q6H PRN 12/05/17 04/09/19 aerosol inhaler epinephrine 0.3 mg/0.3 mL 0.3 mg IM ONCE #1 each 12/05/17 04/09/19 injection, auto-injector sumatriptan succinate 50 mg tablet 50 mg PO PRN #30 tab MDD 100mg 04/23/18 04/09/19 fexofenadine 180 mg tablet 180 mg PO DAILY #30 tab 12/31/18 04/09/19 fluticasone propionate 50 2 spray TRISTAN DAILY #18.2 ml 12/31/18 04/09/19 mcg/actuation nasal spray,suspension ondansetron HCl 8 mg tablet 8 mg PO TID PRN #60 tab 02/14/19 04/09/19 lansoprazole 30 mg capsule,delayed 30 mg PO DAILY 02/19/19 04/09/19 release sucralfate 1 gram tablet 1 gm PO QACHS tab 02/19/19 04/09/19 hydrocodone-acetaminophen [[place]] 1 tab PO Q4H PRN #14 tab 03/31/19 04/09/19 ibuprofen [IBU-200] 600 mg PO Q6H PRN #90 tab 03/31/19 04/09/19 ondansetron HCl [Zofran] 4 mg PO Q6H PRN #4 tab 03/31/19 04/09/19 ondansetron 4 mg disintegrating 4 mg PO Q8H PRN #30 tab 04/14/19 tablet meclizine 25 mg tablet 25 mg PO TID PRN #30 tab 04/29/19 cyclobenzaprine 10 mg PO TID PRN #10 tab 05/12/19 Previous Rx's Medication Instructions Recorded epinephrine 0.3 mg/0.3 mL 0.3 mg IM ONCE #1 each 12/05/17 injection, auto-injector sumatriptan succinate 50 mg tablet 50 mg PO PRN #30 tab MDD 100mg 04/23/18 fexofenadine 180 mg tablet 180 mg PO DAILY #30 tab 12/31/18 fluticasone propionate 50 2 spray TRISTAN DAILY #18.2 ml 12/31/18 mcg/actuation nasal spray,suspension ondansetron HCl 8 mg tablet 8 mg PO TID PRN #60 tab 02/14/19 hydrocodone-acetaminophen [[place]] 1 tab PO Q4H PRN #14 tab 03/31/19 ibuprofen [IBU-200] 600 mg PO Q6H PRN #90 tab 03/31/19 ondansetron HCl [Zofran] 4 mg PO Q6H PRN #4 tab 03/31/19 ondansetron 4 mg disintegrating 4 mg PO Q8H PRN #30 tab 04/14/19 tablet meclizine 25 mg tablet 25 mg PO TID PRN #30 tab 04/29/19 cyclobenzaprine 10 mg PO TID PRN #10 tab 05/12/19 Allergies Allergy/AdvReac Type Severity Reaction Status Date / Time venom-honey bee Allergy Severe Verified 05/12/19 16:24 Sulfa (Sulfonamide Allergy HIVES Verified 05/12/19 16:24 Antibiotics) General MIKE: 3 Review of Systems Constitutional Constitutional: Reports as per HPI, Denies chills, Denies fever(s), Denies headache(s), Denies lethargy and Denies poor appetite Eyes Eyes: Denies change in vision ENT Ears, Nose, Mouth, and Throat: Denies dizziness and Denies headache(s) Cardiovascular Cardiovascular: Reports as per HPI, Denies dyspnea and Denies dyspnea on exertion Respiratory Respiratory: Reports as per HPI, Denies chest congestion, Denies cough, Denies pain on inspiration, Denies pain with cough, Denies dyspnea, Denies dyspnea on exertion and Denies wheezing Gastrointestinal Gastrointestinal: Reports as per HPI, Denies abdominal pain, Denies diarrhea, Denies nausea and Denies vomiting Musculoskeletal Musculoskeletal: Reports as per HPI and Denies back pain Integumentary/Breasts Skin/Breast: Reports as per HPI and Denies rash Neurologic Neurologic: Reports as per HPI, Denies dizziness and Denies headache(s) Allergic/Immunologic Allergic/Immunologic: Denies wheezing [facility] Medical History Abnormal CT of the abdomen (Acute) Acne (Inactive 04/21/13) Asthma (Chronic) Back pain (Resolved) Taking prednisone 60mg QD for 4 days. Currently on day 2. Not feeling it is making much of a difference but she was encouraged to take for the full 4 days. Also suggested she take the muscle relaxer only PRN as it makes her quite drowsy. Encouraged to take at night. To help with rest. Other valenzuela, suggested she increse Aleve to AM & PM dose, then supplement with 1000mg Acetaminophen every 4-6 hours up to a total of 4000mg/day. Suggested ice might help more than heat but either should be limited to only 20 minutes at a time. Use topicals ([place]as Gel or Aspercreame with Lidocaine seem to be quite helpful. Try to avoid sitting or standing still for prolonged periods of time. Walking on flat ground is encourage. Calculus of gallbladder with chronic cholecystitis without obstruction (Acute) TAMARA II (cervical intraepithelial neoplasia II) (Resolved 02/07/16) (-)ECC; two areas on ectocervix (+)CIN2 s/p hyst Depression (Chronic) Takes Fluoxetine 20mg QD with good impact on her depression, denies any SI. Encouraged to continue. to try to tame a hoiurde. Gallstones without obstruction of gallbladder (Acute) Gastroesophageal reflux disease (Chronic) GERD (gastroesophageal reflux disease) (Chronic) Gestational diabetes mellitus (Inactive) High ankle sprain of right lower extremity (Resolved) N&V (nausea and vomiting) (Acute) Nausea and vomiting in adult (Acute) RLQ abdominal tenderness (Acute) Tobacco use (Resolved 10/15/14) quit 01/2016 Vertigo (Acute) Surgical History (Updated 04/16/19 @ 14:42 by Sherry Marcus RN) ANAL SURGERY surgical drainage of anal fissure Dilation and curettage X 2 with losses discectomy (~2003) Endometrial Ablation (~2009) History of bilateral ligation of fallopian tubes (Inactive) History of cholecystectomy (Chronic ~03/2019) History of discectomy (Inactive) History of esophagogastroduodenoscopy (EGD) (Chronic ~01/2019) History of hysterectomy (Chronic) Ligation of fallopian tube S/P endometrial ablation (Resolved) irregular bleeding has restarted, neg EM bx 01/2016 Status post dilation and curettage (Resolved) Social History Smoking/Tobacco Use Status: Current every day Tobacco Type: e-cigarettes Alcohol Intake: never Drug use: Never Substance use type: does not use Household members: family and other Details: Lives with demented mother and her brother current occupation: [employer]; [employer]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 Exam Const General: cooperative, healthy appearing, comfortable, no acute distress and well developed Nutritional Appearance: average body habitus and well nourished Orientation: alert, awake and oriented x3 HENMT Head: normal to inspection Ears: hearing grossly normal bilaterally Mouth: moist mucous membranes Chest Chest: normal inspection of the chest, normal palpation of entire chest wall and no crepitus Resp Effort & Inspection: normal respiratory effort, able to speak in complete sentences and no respiratory distress Auscultation: clear to auscultation bilaterally, no rales, no rhonchi and no wheezes Cardio Rate: regular rate Rhythm: regular rhythm Heart Sounds: S1 normal and S2 normal GI Inspection: normal to inspection, no edema and non-distended Palpation: soft, no hepatosplenomegaly, not firm, no guarding, not rigid and nontender Auscultation: normal bowel sounds Back/Spine/Pelvis Back: no CVA tenderness Thoracic/Lumbar Spine: thoracic and lumbar spine normal to inspection Skin General skin exam: no rashes or lesions noted Trauma: no lacerations or abrasions Neuro General: alert, awake and oriented x3 Cognition: normal cognition Speech: speech normal Gait: normal gait Extrem General: normal to inspection, normal capillary refill, no pedal edema, no calf tenderness and normal gait Psych Appearance: grossly normal and well kempt Mental Status: mental status grossly normal Speech and Movement: speech and movement normal
[2019-05-12 16:18] VITALS: BP 123/73; PULSE 104; RESP 21; TEMP 37; O2SAT 98
[2019-05-12] MEDS: Aspirin 81 MG CHEW 324 MG CH (16:49)
[2019-05-12 16:50] LABS: Abs Immature Grans 0.02 k/cumm (0.0-0.09); Absolute Basophil Count 0.02 k/cumm (0.0-0.2); Absolute Eosinophil Count 0.23 k/cumm (0.0-0.7); Absolute Monocyte Count 0.61 k/cumm (0.11-0.7); Basophils % 0.2; Eosinophils % 2.4; HCT 40.6 % (36.0-46.0); HGB 14.2 g/dL (12.0-15.5); Immature Grans % 0.2 %; Lymphocytes % 24.8; Mean Corpuscular Hemoglobin 29.6 pg (27.0-33.0); Mean Corpuscular Volume 84.8 fL (80-95); Mean Platelet Volume 11.8 fL (8.0-11.0); Monocytes % 6.3; Neutrophils % 66.1; Platelet Count 253 x1000/uL (130-400); RBC 4.79 m/cumm (4.00-5.20); RBC Distribution Width 13.4 % (11.7-14.6); White Blood Cell Count 9.68 k/cumm (4.4-10.8)
[2019-05-12] MEDS: Normal Saline 1,000 ML 125 ML IV (16:50)
[2019-05-12 17:01] LABS: PTT Activated 24.2 sec (21.0-31.4); Prothrombin Time 10.4 sec (9.3-11.0)
[2019-05-12 17:03] LABS: ALT 24 U/L (14-59); AST 19 U/L (15-37); Albumin 3.4 g/dL (3.4-5.0); Alkaline Phosphatase 101 U/L (46-116); Anion Gap 8.6 mmol/L (3-11); BUN 7 mg/dL (7-18); Bilirubin, Total 0.4 mg/dL (0.2-1.0); CO2 28.4 mmol/L (21.0-32.0); Calcium 8.6 mg/dL (8.5-10.1); Chloride 108 mmol/L (98-107); Glucose 130 mg/dL (74-106); Magnesium 1.8 mg/dL (1.8-2.4); Sodium 145 mmol/L (136-145); Total Protein 6.8 g/dL (6.4-8.2)
[2019-05-12 17:05] LABS: Potassium 2.8 mmol/L (3.5-5.1); Troponin I < 0.05 ng/Ml (<0.06)
[2019-05-12 17:15] LABS: D-Dimer 397 ng/mlFEU (<500)
--- NOTE | 2019-05-12 17:26 | DI.RAD_ITS ---
EXAM: XR CHEST 2V PA LATERAL CLINICAL HISTORY: CP TECHNIQUE: 2D digital imaging was performed. COMPARISON: XR CHEST 2V PA LATERAL from 12/28/2018 FINDINGS: The cardiac and mediastinal contours have a normal appearance. The lungs are well inflated and clear . No infiltrate, effusion or pneumothorax is seen. No spine or rib fracture is identified. IMPRESSION: Negative chest x-ray.
--- NOTE | 2019-05-12 17:37 | DI.VRAD_ITS ---
PROCEDURE INFORMATION: Exam: XR Chest, 2 Views Exam date and time: 05/12/2019 5:30 PM Age: 44 years old Clinical indication: Other: Cp TECHNIQUE: Imaging protocol: XR of the chest Views: 2 views. COMPARISON: CR XR CHEST 2V PA LATERAL 28/12/2018 09:42 FINDINGS: Lungs: Unremarkable. No consolidation. Pleural space: Unremarkable. No pleural effusion. No pneumothorax. Heart/Mediastinum: Unremarkable. No cardiomegaly. Bones/joints: Unremarkable for patient's age. IMPRESSION: No acute cardiopulmonary findings. Dictated and Authenticated by: Sandra Nur MD. Ordering:JAQUAN Cottrell MD
[2019-05-12 18:01] VITALS: BP 112/71; PULSE 80; RESP 15; O2SAT 97
[2019-05-12] MEDS: POTASSIUM CHLORIDE 20 MEQ/100 ML BAG 50 MEQ IVPB (18:23)
[2019-05-12] MEDS: Potassium Chloride 20 MEQ TABCR 40 MEQ PO (18:24)
[2019-05-12 19:46] VITALS: BP 103/63; PULSE 75; RESP 14; TEMP 37; O2SAT 97
--- NOTE | 2019-05-12 19:49 | NUR.NOTE ---
Resting comfortably, reports pain has improved, however L arm and fingers continues to complain of numbness. respiration even and unlabored. NSR. laboratory sampler obtaining repeat trop
[2019-05-12 20:14] LABS: Troponin I < 0.05 ng/Ml (<0.06)
[2019-05-12] MEDS: diazePAM 10 MG/2 ML SYR 5 MG IVP (20:40)
[2019-05-12 21:10] VITALS: BP 109/69; PULSE 77; RESP 15; TEMP 36; O2SAT 98
== END 2019-05-12 21:35 | disposition home or self-care (01) ==
PROVIDERS: Emergency Provider Physician Assistant; PCP Family Medicine
DX: R07.89 Other chest pain (principal); M79.10 Myalgia, unspecified site; E87.6 Hypokalemia
CPT/HCPCS: 36415; 80053; 87449; 93005; 96361; 96365; 96366; 96375; 99284; 71046; 83735; 84484; 85025; 85379; 85610; 85730; 93010; J3360; J3480

== ENCOUNTER 2021-02-14 00:45 | Emergency (ER) | payer MEDICAID, SELFPAY ==
[2021-02-14] VITALS (16 sets, daily range): BP systolic 99–145; BP diastolic 58–86; PULSE 80–139; RESP 1–30; TEMP 36.4–36.8; O2SAT 95–98
--- NOTE | 2021-02-14 00:45 | RT.EKG_ITS ---
APPROVED REPORT Exam: Resting ECG Reason for Exam: sob chest pain Patient Location: E HR:92 bpm ECG Measurements Heart Rate 92 AXIS AK 149 P 43 QRSd 77 QRS 7 QT 379 T 16 QTc 469 Conclusion Sinus rhythm...normal P axis, V-rate 60- 99 Physician: no stemi
--- NOTE | 2021-02-14 01:16 | ED.GENADUL_ITS ---
Discharge Plan Disposition Patient Disposition: HOME Condition: Good Discharge Details Clinical Impression: Shortness of breath Primary Care Provider: Unknown,Unknown ED Provider: Christopher Theodore Home Meds and New Rx's Prescriptions: Continued sumatriptan succinate 50 mg tablet 50 mg PO PRN MDD 100mg Qty: 30 RF: 1 sucralfate [Carafate] 1 gram tablet 1 gm PO QACHS RF: 0 ondansetron 4 mg tablet,disintegrating 4 mg PO Q8H PRN (Reason: nausea and vomiting) Qty: 30 RF: 2 epinephrine 0.3 mg/0.3 mL auto-injector 0.3 mg IM ONCE Qty: 1 RF: 0 albuterol sulfate 90 mcg/actuation HFA aerosol inhaler 2 puff IH Q6H PRN (Reason: shortness of breath or wheezing) Qty: 18 RF: 6 ibuprofen [IBU-200] 200 mg tablet 600 mg PO Q6H PRN (Reason: pain) Qty: 90 RF: 2 cetirizine 10 mg tablet 10 mg DAILY RF: 0 famotidine 20 mg tablet 20 mg PO BID RF: 0 potassium chloride 8 mEq tablet extended release 8 meq PO DAILY RF: 0 Flovent Diskus 100 mcg/actuation Blister With Device 1 inh INHALATION BID RF: 0 metoclopramide HCl [Reglan] 10 mg Tablet 10 mg PO QAC RF: 0 bupropion HCl 300 mg tablet extended release 24 hr 300 mg PO DAILY RF: 0 cholecalciferol (vitamin D3) 50 mcg (2,000 unit) capsule 50 mcg PO DAILY RF: 0 Linzess 290 mcg capsule 290 mcg PO DAILY RF: 0 potassium chloride 20 mEq tablet extended release 8 meq PO DAILY RF: 0 meclizine 25 mg tablet 12.5 mg PO TID PRN (Reason: dizziness) RF: 0 Discharge Instructions Instructions: Dyspnea (ED) Additional Instructions: At this time your cardiac work-up and your lung work-up are normal and reassuring without test. There is no signs of a heart attack, blood clot, pneumonia or other significant abnormality. Your oxygen levels remain excellent. Moving forward with no evidence of concerning life-threatening abnormality you do need further outpatient testing. While you do have reactive airway disease/asthma in general, this does not appear to be the cause of your symptoms today. We have placed a referral with our flake drier and respiratory therapy to have pulmonary function testing performed, and further evaluation. You will be contacted with your appointment date. Please follow-up closely with your primary care provider in [place] [employer] for reassessment and further cardiac evaluation if symptoms persist. If you notice any worsening of your symptoms, or any new symptoms such as vomiting, diarrhea, fever, chills, shortness of breath, chest pain, numbness, weakness, or fainting , please return immediately to the emergency department for reevaluation. Please follow up with your primary care provider as soon as possible for reassessment and reevaluation. As always, it was a pleasure participating in your medical care today. Medical Decision Making This is a 45-year-old female with a past medical history of gallstones and subsequent cholecystectomy, GERD, previous atypical heart palpitations currently having an implanted manager cardiac cath (nondefibrillating/nonpacing), asthma, tubal ligation, who presents today for evaluation of chest burning sensation. Patient states that this evening she woke up out of sleep and had new onset chest pain in the left side, radiating down the left arm along with mild difficulty breathing. She felt that lying back made her symptoms worse. She had pain with deep breath. She denies any fever or chills. She denies any new medications. She denies any other complaints. She denies having had symptoms like this in the past. She feels short of breath with exertion. No other complaints at this time. No other modifying factors. Denies PE risk factors such as recent long car rides, immobilization, recent surgery, prior history of DVT or PE, family history of PE or DVT, morbid obesity, exogenous estrogen and smoking, hemoptysis, history of cancer. Physical exam is notably unremarkable, no calf tenderness, no abnormal lung sounds. Vital signs are very stable, her oxygenation and heart rate are normal. She demonstrates minimal tachycardia which resolved after she was resting for a little bit. Respiratory rate is normal at 20. Subjectively she does feel that when she lies back, however there is no signs of fluid overload clinically. Differential includes PE, we will get a D-dimer, Covid, potentially reactive airway disease. Will give breathing treatment, monitor closely and reassess evaluate for concerning etiologies. 3:30 AM Laboratory work-up is returned normal. EKG unremarkable, CBC normal, electrolytes normal. Troponin normal, TSH is high but free T4 is normal. D- dimer is elevated, we will get CTA to eval for PE. 5 AM Laboratory work-up has otherwise remained stable. Repeat troponin and repeat EKG are unremarkable, sinus rhythm, no STEMI. No elevation in troponin. Heart score is in the low risk category. Patient feels well, oxygenation remained stable. We did get her up and ambulate around and while she subjectively felt short of breath her oxygenation remained at 95 to 96%. Covid test was negative. Uncertain as to the exact cause of the patient's symptoms, however chronic lung disease can certainly be a component. Symptoms at this time are inconsistent with an acute exacerbation of asthma or COPD there continues to be no wheezes, no signs of respiratory distress, and she had no improvement of symptoms with breathing treatments. She may certainly have suffered a diminishment of her functional reserve in general which could be a component. Symptoms appear inconsistent with significant life-threatening cardiac etiology at this time, however out of an abundance of precaution I did suggest to the patient that she follow-up closely with her primary care provider for further reassessment and potential outpatient stress testing. We will help set up outpatient pulmonology evaluation and pulmonary function testing. Patient remained stable for discharge. Discussed red flags which to return. I have extensively reviewed the treatment plan and discharge instructions with the patient. I have addressed all patient concerns at this time. The patient was made aware of what symptoms to monitor for that would warrant a return to the emergency department. Discussed the plan with the patient, they demonstrate verbal understanding and agreement with our assessment and plan at this time. The documentation in this chart was dictated using [employer] dictation software. Please excuse any dictation errors. FINDINGS: Tubes, catheters and devices: Cardiac monitoring device in left anterior chest wall. Pulmonary arteries: There is no evidence of peripheral filling defects within the pulmonary arterial circulation to suggest pulmonary embolism. Aorta: The aorta is nonaneurysmal and has a normal appearance. No evidence of dissection. Other arteries: Splenic artery tortuosity. Lungs: Minimal lower lobe dependent atelectasis. Nonspecific lingular interstitial thickening. Tiny 1.5 mm calcified granuloma anterior right lower lobe on image 8/296. No pneumonia. No lobar consolidation Pleural spaces: There are no pleural effusions present. No pneumothorax. Heart: The heart is not enlarged. Lymph nodes: Unremarkable. No enlarged lymph nodes. Gallbladder and bile ducts: Cholecystectomy clips. Bones/joints: Mild spine degenerative changes. Dextroconvex midthoracic scoliosis. Soft tissues: Unremarkable. IMPRESSION: Nonacute findings. Thank you for allowing us to participate in the care of your patient. Dictated and Authenticated by: Milad Flynn MD 02/14/2021 3:54 AM Eastern Time ([place] & [place]) HPI General Date/Time Provider Initiated Documentation: 02/14/21 00:46 . HPI Narrative: This is a 45-year-old female with a past medical history of gallstones and subsequent cholecystectomy, GERD, previous atypical heart palpitations currently having an implanted manager cardiac cath (nondefibrillating/nonpacing), asthma, tubal ligation, who presents today for evaluation of chest burning sensation. Patient states that this evening she woke up out of sleep and had new onset chest pain in the left side, radiating down the left arm along with mild difficulty breathing. She felt that lying back made her symptoms worse. She had pain with deep breath. She denies any fever or chills. She denies any new medications. She denies any other complaints. She denies having had symptoms like this in the past. She feels short of breath with exertion. No other complaints at this time. No other modifying factors. Denies PE risk factors such as recent long car rides, immobilization, recent surgery, prior history of DVT or PE, family history of PE or DVT, morbid obesity, exogenous estrogen and smoking, hemoptysis, history of cancer. Related Data Home Medications Medication Instructions Recorded Confirmed sumatriptan succinate 50 mg tablet 50 mg PO PRN #30 tab MDD 100mg 04/23/18 02/14/21 sucralfate 1 gram tablet 1 gm PO QACHS tab 02/19/19 02/14/21 ibuprofen [IBU-200] 600 mg PO Q6H PRN #90 tab 03/31/19 02/14/21 ondansetron 4 mg disintegrating 4 mg PO Q8H PRN #30 tab 04/14/19 02/14/21 tablet albuterol sulfate 90 mcg/actuation 2 puff IH Q6H PRN #18 gm 10/15/19 02/14/21 aerosol inhaler epinephrine 0.3 mg/0.3 mL 0.3 mg IM ONCE #1 each 10/15/19 02/14/21 injection, auto-injector Flovent Diskus 1 inh INHALATION BID 02/14/21 02/14/21 Linzess 290 mcg PO DAILY 02/14/21 02/14/21 bupropion HCl 300 mg PO DAILY 02/14/21 02/14/21 cetirizine 10 mg DAILY 02/14/21 02/14/21 cholecalciferol (vitamin D3) 50 mcg PO DAILY 02/14/21 02/14/21 famotidine 20 mg PO BID 02/14/21 02/14/21 meclizine 12.5 mg PO TID PRN 02/14/21 02/14/21 metoclopramide HCl [Reglan] 10 mg PO QAC 02/14/21 02/14/21 potassium chloride 8 meq PO DAILY 02/14/21 02/14/21 potassium chloride 8 meq PO DAILY 02/14/21 02/14/21 Previous Rx's Medication Instructions Recorded sumatriptan succinate 50 mg tablet 50 mg PO PRN #30 tab MDD 100mg 04/23/18 ibuprofen [IBU-200] 600 mg PO Q6H PRN #90 tab 03/31/19 ondansetron 4 mg disintegrating 4 mg PO Q8H PRN #30 tab 04/14/19 tablet albuterol sulfate 90 mcg/actuation 2 puff IH Q6H PRN #18 gm 10/15/19 aerosol inhaler epinephrine 0.3 mg/0.3 mL 0.3 mg IM ONCE #1 each 10/15/19 injection, auto-injector Allergies Allergy/AdvReac Type Severity Reaction Status Date / Time venom-honey bee Allergy Severe Verified 05/12/19 16:24 Sulfa (Sulfonamide Allergy HIVES Verified 05/12/19 16:24 Antibiotics) General Stated Complaint: Chest Pain MIKE: 3 Review of Systems All systems reviewed & are unremarkable except as noted in HPI and below [facility] Medical History (Updated 02/14/21 @ 04:57 by Christopher Theodore DO) Abnormal CT of the abdomen Acne (04/21/13) Asthma Back pain Taking prednisone 60mg QD for 4 days. Currently on day 2. Not feeling it is making much of a difference but she was encouraged to take for the full 4 days. Also suggested she take the muscle relaxer only PRN as it makes her quite drowsy. Encouraged to take at night. To help with rest. Other valenzuela, suggested she increse Aleve to AM & PM dose, then supplement with 1000mg Acetaminophen every 4-6 hours up to a total of 4000mg/day. Suggested ice might help more than heat but either should be limited to only 20 minutes at a time. Use topicals ([place]as Gel or Aspercreame with Lidocaine seem to be quite helpful. Try to avoid sitting or standing still for prolonged periods of time. Walking on flat ground is encourage. Calculus of gallbladder with chronic cholecystitis without obstruction TAMARA II (cervical intraepithelial neoplasia II) (02/07/16) (-)ECC; two areas on ectocervix (+)CIN2 s/p hyst Depression Takes Fluoxetine 20mg QD with good impact on her depression, denies any SI. Encouraged to continue. to try to tame a hoiurde. Gallstones without obstruction of gallbladder Gastroesophageal reflux disease GERD (gastroesophageal reflux disease) Gestational diabetes mellitus High ankle sprain of right lower extremity N&V (nausea and vomiting) Nausea and vomiting in adult RLQ abdominal tenderness Tobacco use (10/15/14) quit 01/2016 Vertigo Surgical History ANAL SURGERY surgical drainage of anal fissure Dilation and curettage X 2 with losses discectomy (~2003) Endometrial Ablation (~2009) History of bilateral ligation of fallopian tubes History of cholecystectomy (~03/2019) History of discectomy History of esophagogastroduodenoscopy (EGD) (~01/2019) History of hysterectomy Ligation of fallopian tube S/P endometrial ablation irregular bleeding has restarted, neg EM bx 01/2016 Status post dilation and curettage Family History Mother Hyperlipidemia Thyroid disorder Father Essential hypertension Diabetes Personal history of malignant neoplasm prostate Heart disease Hyperlipidemia Myocardial infarction Social History Smoking/Tobacco Use Status: Current every day Tobacco Type: e-cigarettes Smoking risk assessment performed?: Yes Alcohol Intake: never Drug use: Never Substance use type: does not use Household members: family and other Details: Lives with demented mother and her brother 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 Exam Narrative Exam Narrative: 1.Const: Well-nourished, Well-developed, appearing stated age 2.Eyes: PERRL, no conjunctival injection, and symmetrical lids. 3.ENT: Atraumatic external nose and ears. Moist MM. Neck: Symmetric, trachea midline, No thyromegaly. 4.CVS: +S1/S2, No murmurs or gallops. Peripheral pulses 2+ and equal in all extremities. Brisk capillary refill in all extremities. 5.RESP: Unlabored respiratory effort. Clear to auscultation bilaterally. No wheezes rales or rhonchi 6.GI: Soft, Nontender/Nondistended, No hepatosplenomegaly. No guarding or rebound. 7.MSK: Normocephalic/Atraumatic, Extremities w/o deformity or ttp No cyanosis or clubbing, Normal movement of all extremities, no calf tenderness 8.Skin: Warm, Dry. No rashes or lesions. 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 Sensation grossly intact, no focal neurologic deficits. 10.Psych: (AAO) x3. Appropriate mood and affect Course Vital Signs Vital signs: Vital Signs Temperature 36.4 C L 02/14/21 00:52 Pulse 103 H 02/14/21 00:52 Respiratory Rate 20 02/14/21 00:52 Blood Pressure 145/86 H 02/14/21 00:52 Pulse Oximetry 96 02/14/21 00:52 Temperature 36.4 C L 02/14/21 00:52 Temperature Source Temporal Artery Scan 02/14/21 00:52 Pulse 103 H 02/14/21 00:52 Respiratory Rate 20 02/14/21 00:52 Blood Pressure 145/86 H 02/14/21 00:52 Blood Pressure Position Sitting 02/14/21 00:52 Pulse Oximetry 96 02/14/21 00:52 Oxygen Delivery Method Room Air 02/14/21 00:52 Oxygen Flow Rate 0 02/14/21 00:52
[2021-02-14 01:22] LABS: Absolute Basophil Count 0.04 10^3/uL (0.0-0.2); Absolute Eosinophil Count 0.22 10^3/uL (0.0-0.7); Absolute Lymphocyte Count 2.27 10^3/uL (1.2-3.4); Absolute Monocyte Count 0.66 10^3/uL (0.1-0.8); Basophils % 0.4; Eosinophils % 2.1; HCT 37.7 % (36.0-46.0); HGB 12.8 g/dL (11.2-15.7); Immature Grans % 0.9; Lymphocytes % 21.4; MCH 29.9 pg (27.0-33.0); MCV 88.1 fL (80-95); MPV 10.3 fL (8.0-11.0); Monocytes % 6.2; Nucleated RBC 0 %; Platelet Count 285 10^3/uL (130-400); RBC 4.28 10^6/uL (3.93-5.22); RDW 12.1 % (11.7-14.6); RDW-SD 38.7 fL; WBC 10.59 10^3/uL (4.4-10.8)
[2021-02-14] MEDS: Albuterol/Ipratropium 3 ML UPD VIAL UPD (01:30)
[2021-02-14] MEDS: Normal Saline 1,000 ML 1000 ML IV (01:44)
[2021-02-14 02:18] LABS: Prothrombin Time 9.9 sec (9.3-11.0)
[2021-02-14 02:19] LABS: PTT Activated 24.2 sec (21.0-27.5)
[2021-02-14 02:27] LABS: D-Dimer 930 ng/mlFEU (<500)
[2021-02-14 02:29] LABS: Albumin 3.4 g/dL (3.4-5.0); Alkaline Phosphatase 107 U/L (46-116); BUN 5 mg/dL (7-18); Bilirubin, Total 0.2 mg/dL (0.2-1.0); CREATININE 0.9 mg/dL (0.55-1.02); Calcium 8.7 mg/dL (8.5-10.1); Glucose 134 mg/dL (74-106); Sodium 145 mmol/L (136-145); Total Protein 6.5 g/dL (6.4-8.2)
[2021-02-14 02:30] LABS: ALT 36 U/L (14-59); AST 23 U/L (15-37); Anion Gap 6.5 mmol/L (3-11); CO2 31.5 mmol/L (21.0-32.0); Chloride 107 mmol/L (98-107); Potassium 3.6 mmol/L (3.5-5.1); TSH (W/Ref FT4) 5.14 uIU/mL (0.36-3.74); Troponin I < 0.05 ng/mL (<0.06)
--- NOTE | 2021-02-14 02:30 | DI.CT_ITS ---
Exam(s) CT CHEST PE CTA EXAM: CT CHEST PE CTA CLINICAL HISTORY: cough, sob, chest pain, elevated dimer, r/o pe. TECHNIQUE: Imaging Protocol: CT angiography of the chest was performed using pulmonary embolus howard col. Multi planar reconstructions were performed. CONTRAST MATERIAL: Intravenous: Omnipaque 350 Contrast volume: 100 cc COMPARISON: CT CT CHEST PE CTA from 02/12/2019 FINDINGS: CHEST: PULMONARY ARTERIES: There are no intraluminal filling defects to suggest acute pulmonary emboli. LUNGS: There is some atelectasis versus mild infiltrate in the lingular segment of the left lung. No other focal lung findings.. There are no pleural effusions. MEDIASTINUM: There is no hilar nor mediastinal adenopathy. Visualized thyroid unremarkable. CARDIAC: Heart size is upper normal. There is no pericardial effusion.Caliber of the thoracic aorta is within normal limits. There is no significant shift of the interventricular septum. PARTIALLY VISUALIZED UPPERMOST ABDOMEN: No adrenal masses. Gallbladder surgically absent. OSSEOUS: No significant osseous lesions.. IMPRESSION: 1. No evidence of acute pulmonary emboli. No evidence of pulmonary infarction.No pleural effusions. 2. Atelectasis versus mild infiltrate in the lingular segment of the left lung 3. RADIATION DOSE DELIVERED: 490.02mGy.cm Total DLP DATA REPOSITORY: All CT scans at this facility are submitted to the National Radiology Data Registry (NRDR) Dose Index Registry (DIR) with the [employer] (ACR). RADIATION OPTIMIZATION: All CT scans at this facility use at least one of these dose optimization te chniques: automated exposure control; mA and/or kV adjustment per patient size (includes targeted exa ms where dose is matched to clinical indication); or iterative reconstruction.
[2021-02-14 02:48] LABS: FREE T4 0.87 ng/dL (0.76-1.46)
[2021-02-14] MEDS: Omnipaque 350 MG/ML 100 ML BTL IJ (02:52)
--- NOTE | 2021-02-14 03:00 | NUR.NOTE ---
Nursing Note: Patient returned from CT and expressed that after laying down she feels like she is having increased trouble with breathing. No obvious distress noted. No change in breath sounds. RN notified Dr. Theodore who instructed to initiate O2 at 1 L/min via NC. Applied per order.
[2021-02-14 03:54] LABS: Source Nasal/Nares
--- NOTE | 2021-02-14 03:54 | NUR.NOTE ---
Nursing Note: Patient reports improved symptoms of dyspnea with O2 administration.
--- NOTE | 2021-02-14 03:55 | DI.VRAD_ITS ---
PROCEDURE INFORMATION: Exam: CTA Chest With Contrast Exam date and time: 02/14/2021 2:31 AM Age: 45 years old Clinical indication: Abnormal findings; Abnormal diagnostic tests; Elevated d-dimer; Cough and shortness of breath; Prior surgery; Surgery date: 6+ months; Surgery type: Heart monitor in may 23; Patient HX: Cough, SOB, chest pain, elevated dimer, R/O pe TECHNIQUE: Imaging protocol: Computed tomographic angiography of the chest with contrast. 3D rendering (Not supervised by radiologist): MIP and/or 3D reconstructed images were created by the technologist. Radiation optimization: All CT scans at this facility use at least one of these dose optimization techniques: automated exposure control; mA and/or kV adjustment per patient size (includes targeted exams where dose is matched to clinical indication); or iterative reconstruction. Contrast material: OMNIPAQUE 350; Contrast volume: 100 ml; Contrast route: INTRAVENOUS (IV); COMPARISON: CT CHEST PE CTA 02/12/2019 7:36 PM FINDINGS: Tubes, catheters and devices: Cardiac monitoring device in left anterior chest wall. Pulmonary arteries: There is no evidence of peripheral filling defects within the pulmonary arterial circulation to suggest pulmonary embolism. Aorta: The aorta is nonaneurysmal and has a normal appearance. No evidence of dissection. Other arteries: Splenic artery tortuosity. Lungs: Minimal lower lobe dependent atelectasis. Nonspecific lingular interstitial thickening. Tiny 1.5 mm calcified granuloma anterior right lower lobe on image 8/296. No pneumonia. No lobar consolidation. Pleural spaces: There are no pleural effusions present. No pneumothorax. Heart: The heart is not enlarged. Lymph nodes: Unremarkable. No enlarged lymph nodes. Gallbladder and bile ducts: Cholecystectomy clips. Bones/joints: Mild spine degenerative changes. Dextroconvex midthoracic scoliosis. Soft tissues: Unremarkable. IMPRESSION: Nonacute findings. Dictated and Authenticated by: Milad Flynn MD. Ordering:NAUN White MD
[2021-02-14 04:24] LABS: Troponin I < 0.05 ng/mL (<0.06)
--- NOTE | 2021-02-14 04:30 | RT.EKG_ITS ---
APPROVED REPORT Exam: Resting ECG Reason for Exam: sob Patient Location: E HR:88 bpm ECG Measurements Heart Rate 88 AXIS RI 148 P 36 QRSd 84 QRS 7 QT 394 T 18 QTc 476 Conclusion Sinus rhythm...normal P axis, V-rate 60- 99 Low voltage, precordial leads...precordial leads <1.0mV Physician: no stemi
[2021-02-14 04:43] LABS: COVID-19 PCR Negative (Negative)
== END 2021-02-14 04:02 | disposition home or self-care (01) ==
PROVIDERS: Emergency Provider Student in an Organized Health Care Education/Training Program
DX: R06.02 Shortness of breath (principal); F32.A Depression, unspecified; R07.89 Other chest pain
CPT/HCPCS: 36415; 71275; 80053; 87635; 93005; 94640; 96360; 99285; 84439; 84443; 84484; 85025; 85379; 85610; 85730; 93010; 99284; J3490; J7620

== ENCOUNTER 2021-02-28 03:34 | Outpatient (CLI) | payer MEDICAID, SELFPAY ==
[2021-02-28] MEDS: Albuterol HFA 18 GM 200 PUFF INH IH (14:56)
[2021-02-28] MEDS: Inhaler, Assist Device 1 EACH MC (14:57)
--- NOTE | 2021-03-01 13:06 | W.PFT ---
Date of service: 02/28/21 Time of Service: 13:07 Pulmonary Function Test Result Requesting Provider Brenda Nazario Indications: Dyspnea Interpretation Spirometry: There is no airflow limitation. There is no significant bronchodilator response. There is a restrictive pattern to spirometry. Lung Volumes: There is moderately reduced lung volumes. Diffusion Capacity: The diffusion is reduced. Airway Pressure: Airways resistance is normal. Impression Moderate restrictive lung disease with a reduced diffusion capacity. Clinical Correlation therefore is recommended.
== END 2021-02-28 03:35 | disposition home or self-care (01) ==
LOC: RT 03:34
PROVIDERS: Visit Provider Internal Medicine
DX: R06.02 Shortness of breath (principal); R55 Syncope and collapse; Z87.891 Personal history of nicotine dependence; J45.909 Unspecified asthma, uncomplicated; J98.4 Other disorders of lung
CPT/HCPCS: 94060; 94726; 94729

== ENCOUNTER 2021-11-12 14:53 | Emergency (ER) | payer MEDICAID, SELFPAY ==
[2021-11-12] VITALS (41 sets, daily range): BP systolic 102–116; BP diastolic 59–86; PULSE 76–133; RESP 13–33; TEMP 36; O2SAT 95–98
--- NOTE | 2021-11-12 14:45 | RT.EKG_ITS ---
APPROVED REPORT Exam: Resting ECG Reason for Exam: chest pain Patient Location: E HR:93 bpm ECG Measurements Heart Rate 93 AXIS NC 148 P 34 QRSd 78 QRS 7 QT 358 T 23 QTc 445 Conclusion Sinus rhythm. Low voltage, precordial leads Similar to previous
--- NOTE | 2021-11-12 15:15 | DI.RAD_ITS ---
Exam(s) XR PORTABLE CHEST AP EXAM: XR PORTABLE CHEST AP CLINICAL HISTORY: palpitations TECHNIQUE: 2D digital imaging was performed. COMPARISON: CT CT CHEST PE CTA from 02/14/2021 FINDINGS: Exam mildly limited by suboptimal pulmonary inflation. LUNGS: Clear. No pleural abnormality seen. HEART: Normal. AORTA: Normal. BONES: Unremarkable for age. Soft tissues: Unremarkable. IMPRESSION: No acute findings. DATA REPOSITORY: RADIATION DOSE DELIVERED:
--- NOTE | 2021-11-12 15:25 | ED.GENADUL_ITS ---
Discharge Plan Disposition Patient Disposition: STILL A PATIENT Condition: Stable Discharge Details Clinical Impression: Heart palpitations, Hypomagnesemia Primary Care Provider: Unknown,Unknown ED Provider: Christopher Theodore Home Meds and New Rx's Prescriptions: Continued sumatriptan succinate 50 mg tablet 50 mg PO PRN MDD 100mg Qty: 30 1RF sucralfate [Carafate] 1 gram tablet 1 gm PO QACHS ondansetron 4 mg tablet,disintegrating 4 mg PO Q8H PRN (Reason: nausea and vomiting) Qty: 30 2RF epinephrine 0.3 mg/0.3 mL auto-injector 0.3 mg IM ONCE Qty: 1 0RF albuterol sulfate 90 mcg/actuation HFA aerosol inhaler 2 puff IH Q6H PRN (Reason: shortness of breath or wheezing) Qty: 18 6RF ibuprofen [IBU-200] 200 mg tablet 600 mg PO Q6H PRN (Reason: pain) Qty: 90 2RF Rx Instructions: take w/ carafate. do not take on an empty stomach cetirizine 10 mg tablet 10 mg DAILY famotidine 20 mg tablet 20 mg PO BID Flovent Diskus 100 mcg/actuation Blister With Device 1 inh INHALATION BID metoclopramide HCl [Reglan] 10 mg Tablet 10 mg PO QAC bupropion HCl 300 mg tablet extended release 24 hr 300 mg PO DAILY cholecalciferol (vitamin D3) 50 mcg (2,000 unit) capsule 50 mcg PO DAILY Label Comments: TAKE TWO CAPSULES BY MOUTH EVERY DAY Linzess 290 mcg capsule 290 mcg PO DAILY meclizine 25 mg tablet 12.5 mg PO TID PRN (Reason: dizziness) metformin 500 mg tablet 1,000 mg PO DAILY AM Label Comments: TAKE 1 TABLET BY MOUTH ONCE DAILY hydroxyzine pamoate 50 mg capsule 50 cap PO BID Label Comments: TAKE 1 CAPSULE BY MOUTH TWICE DAILY metformin 500 mg tablet extended release 24 hr 500 tab PO HS Label Comments: TAKE 2 TABLETS BY MOUTH IN THE MORNING AND 1 EVERY DAY AT BEDTIME escitalopram oxalate 20 mg tablet 40 mg PO DAILY AM Label Comments: TAKE 1 TABLET BY MOUTH ONCE DAILY midodrine 2.5 mg tablet 2 tab PO TID Label Comments: TAKE 2 TABLETS BY MOUTH THREE TIMES DAILY potassium chloride 20 mEq tablet extended release 20 tab PO DAILY AM Label Comments: TAKE 1 TABLET BY MOUTH ONCE DAILY Discharge Instructions Instructions: Heart Palpitations (ED), Hypomagnesemia (ED) Additional Instructions: Your magnesium was supplemented in the emergency department. Your implanted loop recorder was interrogated with no concerning findings per [employer]. Please follow-up with your personal banking advisor for recheck. Medical Decision Making 46-year-old female with a history of palpitations, nearsyncope, dehydration, and vertigo. IV access was established, fluids initiated and laboratory panel obtained. Portable chest x-ray without evidence of acute abnormality. Labs note low magnesium which was supplemented in the emergency department. Patient has evidence of stress demargination of the white blood cell count at 15 with normal hematocrit and platelets. Remainder of chemistries including, atypical chest pain. She has follow-up with Dr. Crowe the [facility] cardiology, and has had an indwelling loop recorder for the past 2 years. Today while shopping she felt palpitations and lightheadedness. She states that she was contacted by [employer] and asked to go to the hospital. She states the palpitations lasted approximately a few minutes and then resolved on their own. She did not have syncope, no vomiting, no diaphoresis. She will note longstanding (months or longer) intermittent episodes of mild chest discomfort that is worse while lying flat. She states both her neurology and terrazzo finisher have been following. The patient has similar episodes of this in the past. She has a diagnosis of nonspecific paroxysmal spell as well as orthostatic hypotension, dizziness. Patient was given IV fluids and laboratories obtained addition to chest x-ray and screening COVID test. Chest x-ray without acute findings. COVID test is negative. Laboratories are notable for hypomagnesemia which is supplemented in the emergency department. Troponin is normal. White blood cell count is slightly elevated at 15, otherwise reassuring CBC. Patient's loop recorder interrogated: No acute events or concerning findings per on-call report from [employer] Finally, patient complained of dificuilty urinating over 2 days: UA ordered. We will sign the patient note at change of shift to Dr. Theodore pending review of her urinalysis. HPI General Mode of arrival: ambulatory . Date/Time Provider Initiated Documentation: 11/12/21 14:54 . Limitations to Documentation: no limitations . Information obtained by: patient . History of Present Illness 46 year old F presents to the emergency department with the chief complaint of Palpitations, described as moderate, and is localized to the chest. Patient reports no radiation. Patient started experiencing this minute(s) and it has been now resolved. No relieving factors improve symptom(s), No exacerbating factors reported . Patient notes weakness; denies chest pain, headaches and syncope. Patient did receive the following treatments prior to arrival, none Related Data Home Medications Medication Instructions Recorded Confirmed sumatriptan succinate 50 mg tablet 50 mg PO PRN #30 tabs 04/23/18 11/12/21 sucralfate 1 gram tablet (Carafate) 1 gm PO QACHS abdominal pain or 02/19/19 02/14/21 nausea ibuprofen 200 mg tablet (IBU-200) 600 mg PO Q6H PRN pain #90 tabs 03/31/19 02/14/21 ondansetron 4 mg disintegrating 4 mg PO Q8H PRN nausea and 04/14/19 11/12/21 tablet vomiting #30 tabs albuterol sulfate 90 mcg/actuation 2 puff inhalation Q6H PRN 10/15/19 11/12/21 aerosol inhaler shortness of breath or wheezing #18 grams epinephrine 0.3 mg/0.3 mL 0.3 mg (0.3 mL) IM ONCE #1 ea 10/15/19 02/14/21 injection, auto-injector bupropion HCl 300 mg 24 hr tablet, 300 mg PO DAILY 02/14/21 11/12/21 extended release cetirizine 10 mg tablet 10 mg DAILY 02/14/21 11/12/21 cholecalciferol (vitamin D3) 50 50 mcg PO DAILY 02/14/21 11/12/21 mcg (2,000 unit) capsule famotidine 20 mg tablet 20 mg PO BID 02/14/21 11/12/21 fluticasone propionate 100 1 inh inhalation BID 02/14/21 11/12/21 mcg/actuation blister powder for inhalation (Flovent Diskus) linaclotide 290 mcg capsule 290 mcg PO DAILY 02/14/21 11/12/21 (Linzess) meclizine 25 mg tablet 12.5 mg PO TID PRN dizziness 02/14/21 11/12/21 metoclopramide HCl 10 mg tablet 10 mg PO QAC 11/15/21 11/15/21 (Reglan) escitalopram oxalate 20 mg tablet 40 mg PO DAILY AM 11/12/21 11/12/21 hydroxyzine pamoate 50 mg capsule 50 cap PO BID 11/12/21 11/12/21 metformin 500 mg tablet 1,000 mg PO DAILY AM 11/12/21 11/12/21 metformin 500 mg tablet,extended 500 tab PO HS 11/12/21 11/12/21 release 24 hr midodrine 2.5 mg tablet 2 tab PO TID 11/12/21 11/12/21 potassium chloride 20 mEq 20 tab PO DAILY AM 11/12/21 11/12/21 tablet,extended release Previous Rx's Medication Instructions Recorded sumatriptan succinate 50 mg tablet 50 mg PO PRN #30 tabs 04/23/18 ibuprofen 200 mg tablet (IBU-200) 600 mg PO Q6H PRN pain #90 tabs 03/31/19 ondansetron 4 mg disintegrating 4 mg PO Q8H PRN nausea and 04/14/19 tablet vomiting #30 tabs albuterol sulfate 90 mcg/actuation 2 puff inhalation Q6H PRN 10/15/19 aerosol inhaler shortness of breath or wheezing #18 grams epinephrine 0.3 mg/0.3 mL 0.3 mg (0.3 mL) IM ONCE #1 ea 10/15/19 injection, auto-injector Allergies Allergy/AdvReac Type Severity Reaction Status Date / Time venom-honey bee Allergy Severe Verified 05/12/19 16:24 Sulfa (Sulfonamide Allergy HIVES Verified 05/12/19 16:24 Antibiotics) General Stated Complaint: Chest Pain MIKE: 2 Review of Systems Narrative: History of near syncope, palpitations, atypical chest pain. Follows with Dr. Crowe. Recently well. Was lightheaded with palpitations today, now resolved, felt slight chest discomfort the last 2 days while lying flat, improved sitting up. She has not had a fever or cough .Decreased urine over 2 days. 10 systems were reviewed PFSH All Active Problems (Updated 11/12/21 @ 19:02 by Kain Cabrera MD) Shortness of breath (Acute) Heart palpitations (Acute) Atypical chest pain (Acute) Muscle pain (Acute) Calculus of gallbladder with chronic cholecystitis without obstruction (Acute) Gallstones without obstruction of gallbladder (Acute) GERD (gastroesophageal reflux disease) (Chronic) Nausea and vomiting in adult (Acute) Right lower quadrant abdominal pain (Acute) Hypomagnesemia (Acute) Syncope (Chronic) Dehydration (Acute) Near syncope (Acute) Bradycardia (Acute) Dizziness (Acute) Nonspecific paroxysmal spell (Acute) DVT prophylaxis (Acute) Discharge planning issues (Acute) Pre-syncope (Acute) Abnormal CT of the abdomen (Acute) N&V (nausea and vomiting) (Acute) RLQ abdominal tenderness (Acute) Vertigo (Acute) Gastroesophageal reflux disease (Chronic) Asthma (Chronic) Depression (Chronic) Takes Fluoxetine 20mg QD with good impact on her depression, denies any SI. Encouraged to continue. to try to tame a hoiurde. Medical History Acne (04/21/13) Back pain Taking prednisone 60mg QD for 4 days. Currently on day 2. Not feeling it is making much of a difference but she was encouraged to take for the full 4 days. Also suggested she take the muscle relaxer only PRN as it makes her quite drowsy. Encouraged to take at night. To help with rest. Other valenzuela, suggested she increse Aleve to AM & PM dose, then supplement with 1000mg Acetaminophen every 4-6 hours up to a total of 4000mg/day. Suggested ice might help more than heat but either should be limited to only 20 minutes at a time. Use topicals (Solopas Gel or Aspercreame with Lidocaine seem to be quite helpful. Try to avoid sitting or standing still for prolonged periods of time. Walking on flat ground is encourage. Gestational diabetes mellitus High ankle sprain of right lower extremity Tobacco use (10/15/14) quit 01/2016 Surgical History ANAL SURGERY surgical drainage of anal fissure Dilation and curettage X 2 with losses discectomy (~2003) Endometrial Ablation (~2009) History of bilateral ligation of fallopian tubes History of cholecystectomy (~03/2019) History of discectomy History of esophagogastroduodenoscopy (EGD) (~01/2019) History of hysterectomy Ligation of fallopian tube S/P endometrial ablation irregular bleeding has restarted, neg EM bx 01/2016 Status post dilation and curettage Family History Mother Hyperlipidemia Thyroid disorder Father Essential hypertension Diabetes Personal history of malignant neoplasm prostate Heart disease Hyperlipidemia Myocardial infarction Social History Smoking/Tobacco Use Status: Former Tobacco Use Quit Date: 12/15/15 Tobacco: How many years used: 20 Smoking risk assessment performed?: Yes Alcohol Intake: never Drug use: Never Substance use type: does not use Household members: family and other Details: Lives with demented mother and her brother current occupation: [employer]; [employer]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 Exam Narrative Exam Narrative: GEN: awake, alert, oriented 3. Pleasant, well groomed, interactive. HEAD: Normocephalic, atraumatic ENT: Mucous membranes moist, oropharynx unremarkable, External ear exam unremarkable EYES: PERRL, EOMI NECK: Full ROM, no NOAH, no menigismus CHEST/RESP: Nontender, clear to auscultation bilateral, no wheeze/rhonchi/rales CARDIOVASCULAR: RRR, no murmur, rub brooks. 2+ Rad pulse bilateral ABDOMEN: Soft, nontender, no mass. +Bowel sounds EXT: Full ROM, no edema, no rash Neuro: Grossly normal neurologic exam, conversant, interactive. Psych: Speech fluent, thoughts congruent, affect normal Course Vital Signs Vital signs: Vital Signs Pulse 100 H 11/12/21 15:03 Respiratory Rate 18 11/12/21 15:03 Pulse Oximetry 95 11/12/21 15:03 Pulse 100 H 11/12/21 15:03 Respiratory Rate 18 11/12/21 15:03 Blood Pressure Position Sitting 11/12/21 15:03 Pulse Oximetry 95 11/12/21 15:03 Oxygen Delivery Method Room Air 11/12/21 15:03 Oxygen Flow Rate 0 11/12/21 15:03 Pain Level 8 11/12/21 15:03 Sign Out Sign Out Data: Sign Out Comment: Check UA. Otherwise reassuring workup. Last updated by Kain Cabrera MD at 11/12/21 19:44
[2021-11-12 15:40] LABS: Abs Immature Grans 0.11 10^3/uL (0.0-0.06); Absolute Basophil Count 0.06 10^3/uL (0.0-0.2); Absolute Eosinophil Count 0.16 10^3/uL (0.0-0.7); Absolute Lymphocyte Count 2.83 10^3/uL (1.2-3.4); Absolute Monocyte Count 0.93 10^3/uL (0.1-0.8); Basophils % 0.4; HCT 42.1 % (36.0-46.0); HGB 14.5 g/dL (11.2-15.7); Immature Grans % 0.7; Lymphocytes % 17.9; MCHC 34.4 % (32.0-36.0); MCV 84 fL (80-95); Monocytes % 5.9; Neutrophils % 74.1; RDW 12.9 % (11.7-14.6); RDW-SD 39.5 fL; WBC 15.79 10^3/uL (4.4-10.8)
[2021-11-12 15:53] LABS: ALT 22 U/L (14-59); AST 15 U/L (15-37); Albumin 3.5 g/dL (3.4-5.0); Alkaline Phosphatase 103 U/L (46-116); Anion Gap 6.9 mmol/L (3-11); BUN 10 mg/dL (7-18); Bilirubin, Total 0.5 mg/dL (0.2-1.0); CO2 28.1 mmol/L (21.0-32.0); CREATININE 0.9 mg/dL (0.55-1.02); Chloride 104 mmol/L (98-107); Glucose 103 mg/dL (74-106); Magnesium 1.7 mg/dL (1.8-2.4); Platelet Count 344 10^3/uL (130-400); Potassium 3.8 mmol/L (3.5-5.1); Sodium 139 mmol/L (136-145); Total Protein 7.4 g/dL (6.4-8.2)
--- NOTE | 2021-11-12 16:03 | DI.VRAD_ITS ---
PROCEDURE INFORMATION: Exam: XR Chest Exam date and time: 11/12/2021 3:17 PM Age: 46 years old Clinical indication: Other: Palpitations TECHNIQUE: Imaging protocol: Radiologic exam of the chest. Views: 1 view. Other technique: Portable exam. COMPARISON: CT CHEST PE CTA 02/14/2021 2:54 AM FINDINGS: Tubes, catheters and devices: Left chest wall electronic device again seen. Lungs: Unremarkable. No consolidation. Pleural spaces: Unremarkable. No pleural effusion. No pneumothorax. Heart/Mediastinum: Mild cardiomegaly. Bones/joints: Unremarkable. IMPRESSION: No evidence for acute abnormality in the chest. Dictated and Authenticated by: Micheline Cuello MD. Ordering:PEMA Finnegan MD
[2021-11-12] MEDS: Normal Saline 1,000 ML 1000 ML IV ×2 (16:12→20:47)
[2021-11-12 16:19] LABS: Source Nasal/Nares
[2021-11-12] MEDS: MAGNESIUM SULFATE 2 GM/50 ML BAG IVPB (16:27)
[2021-11-12] MEDS: Ketorolac 15 MG/ML VIAL IVP (16:49)
[2021-11-12 16:50] LABS: COVID-19 PCR Negative (Negative)
[2021-11-12 16:52] LABS: Troponin I < 50 ng/L (<or=60)
[2021-11-12 20:13] LABS: Bilirubin Negative (Negative); Blood Negative (Negative); Clarity Clear (Clear); Glucose Negative (Negative); Ketones Trace mg/dL (Negative); Leukocyte Esterase Negative (Negative); Nitrite Negative (Negative); Specific Gravity >= 1.030 (1.005-1.025); Urobilinogen 0.2 EU/dL (Up TO 0.2); pH 5.5 (5-8)
[2021-11-12] MEDS: Meclizine 25 MG TAB PO (20:46)
--- NOTE | 2021-11-12 22:08 | W.EDPROG ---
Date of service: 11/12/21 Time of Service: 22:08 Medical Decision Making Patient was signed out to me by my colleague Kain Cabrera. Please refer to his HPI, physical exam, assessment and plan. Patient initially came in for some mild chest discomfort, dizziness, and feeling generally unwell. She was evaluated, she had a negative cardiac work-up including initial and delta troponin, EKG was stable, equipment monitor phototypesetting was interrogated and found to have no concerning events or abnormalities per Dr. Cabrera. Patient did have hypomagnesemia which was corrected. Patient was planned for discharge, and then it came up at the end of the visit that she had not urinated all day. This increased concern for dehydration. Patient was then signed out to me waiting for urinalysis and reassessment after fluids. Patient was rehydrated with 2 L of normal saline, she was given a dose of meclizine for her mild dizziness, urinalysis is returned and is unremarkable. Repeat abdominal exam demonstrates no abdominal tenderness or signs of an acute surgical abdomen whatsoever. Patient has no chest pain or chest discomfort at this time. Symptoms inconsistent with ACS. Patient still has mild dizziness but states that this feels like her normal exacerbations of vertigo. Physical exam shows no focal neurologic deficits to suggest a cerebellar etiology. Symptoms appear to be indicative of peripheral vertigo at this time. No vertical or rotatory nystagmus. No ataxia gait. At this time discussed with the patient continued observation versus discharge, and through shared decision-making process patient has requested discharge now she feels it be more appropriate with family currently. Will recommend increase meclizine at home for the next 2 to 3 days, continued fluids, close follow-up with her primary care provider and senior digital designer. Discussed red flags which to return. I have extensively reviewed the treatment plan and discharge instructions with the patient. I have addressed all patient concerns at this time. The patient was made aware of what symptoms to monitor for that would warrant a return to the emergency department. Discussed the plan with the patient, they demonstrate verbal understanding and agreement with our assessment and plan at this time. The documentation in this chart was dictated using [employer] dictation software. Please excuse any dictation errors. Sign Out Sign Out Data: Sign Out Comment: Check UA. Otherwise reassuring workup. Last updated by Kain Cabrera MD at 11/12/21 19:44 Discharge Plan Disposition Patient Disposition: HOME Condition: Stable Discharge Details Clinical Impression: Heart palpitations, Hypomagnesemia, Dizziness, Acute dehydration Primary Care Provider: Unknown,Unknown ED Provider: Christopher Theodore Home Meds and New Rx's Prescriptions: Continued sumatriptan succinate 50 mg tablet 50 mg PO PRN MDD 100mg Qty: 30 1RF sucralfate [Carafate] 1 gram tablet 1 gm PO QACHS ondansetron 4 mg tablet,disintegrating 4 mg PO Q8H PRN (Reason: nausea and vomiting) Qty: 30 2RF epinephrine 0.3 mg/0.3 mL auto-injector 0.3 mg IM ONCE Qty: 1 0RF albuterol sulfate 90 mcg/actuation HFA aerosol inhaler 2 puff IH Q6H PRN (Reason: shortness of breath or wheezing) Qty: 18 6RF ibuprofen [IBU-200] 200 mg tablet 600 mg PO Q6H PRN (Reason: pain) Qty: 90 2RF Rx Instructions: take w/ carafate. do not take on an empty stomach cetirizine 10 mg tablet 10 mg DAILY famotidine 20 mg tablet 20 mg PO BID Flovent Diskus 100 mcg/actuation Blister With Device 1 inh INHALATION BID metoclopramide HCl [Reglan] 10 mg Tablet 10 mg PO QAC bupropion HCl 300 mg tablet extended release 24 hr 300 mg PO DAILY cholecalciferol (vitamin D3) 50 mcg (2,000 unit) capsule 50 mcg PO DAILY Label Comments: TAKE TWO CAPSULES BY MOUTH EVERY DAY Linzess 290 mcg capsule 290 mcg PO DAILY meclizine 25 mg tablet 12.5 mg PO TID PRN (Reason: dizziness) metformin 500 mg tablet 1,000 mg PO DAILY AM Label Comments: TAKE 1 TABLET BY MOUTH ONCE DAILY hydroxyzine pamoate 50 mg capsule 50 cap PO BID Label Comments: TAKE 1 CAPSULE BY MOUTH TWICE DAILY metformin 500 mg tablet extended release 24 hr 500 tab PO HS Label Comments: TAKE 2 TABLETS BY MOUTH IN THE MORNING AND 1 EVERY DAY AT BEDTIME escitalopram oxalate 20 mg tablet 40 mg PO DAILY AM Label Comments: TAKE 1 TABLET BY MOUTH ONCE DAILY midodrine 2.5 mg tablet 2 tab PO TID Label Comments: TAKE 2 TABLETS BY MOUTH THREE TIMES DAILY potassium chloride 20 mEq tablet extended release 20 tab PO DAILY AM Label Comments: TAKE 1 TABLET BY MOUTH ONCE DAILY Discharge Instructions Instructions: Heart Palpitations (ED), Hypomagnesemia (ED) Additional Instructions: Your magnesium was supplemented in the emergency department. Your implanted loop recorder was interrogated with no concerning findings per [employer]. Please follow-up with your senior digital designer for recheck. Please take your meclizine twice daily for the next 2 to 3 days as your dizziness improves. If you notice any worsening of your symptoms, or any new symptoms such as vomiting, diarrhea, fever, chills, shortness of breath, chest pain, numbness, weakness, or fainting , please return immediately to the emergency department for reevaluation. Please follow up with your primary care provider as soon as possible for reassessment and reevaluation. As always, it was a pleasure participating in your medical care today.
== END 2021-11-12 22:36 | disposition home or self-care (01) ==
PROVIDERS: Emergency Medicine; Physician Assistant; Emergency Provider Student in an Organized Health Care Education/Training Program
DX: Z20.822 Contact with and (suspected) exposure to COVID-19 (principal); R00.2 Palpitations; E83.42 Hypomagnesemia; R42 Dizziness and giddiness; E86.0 Dehydration; R07.9 Chest pain, unspecified
CPT/HCPCS: 80053; 87635; 93005; 96361; 96365; 96366; 96375; 99284; 71045; 81003; 83735; 84484; 85025; 93010; J1885

== ENCOUNTER 2022-03-19 02:44 | Emergency (ER) | payer MEDICAID, SELFPAY ==
[2022-03-19 02:53] VITALS: BP 129/86; PULSE 89; RESP 18; TEMP 36.8; O2SAT 98
--- NOTE | 2022-03-19 02:55 | W.ED.GENAD ---
Discharge Plan Disposition Patient Disposition: Home Condition: Good Discharge Details Clinical Impression: Acute hypokalemia Primary Care Provider: Unknown,Unknown ED Provider: Christopher Theodore Home Meds and New Rx's Prescriptions: New potassium chloride 20 mEq tablet extended release 20 meq PO BID 5 Days Qty: 10 0RF No Action ondansetron 4 mg tablet,disintegrating 4 mg PO Q8H PRN (Reason: nausea and vomiting) Qty: 30 2RF albuterol sulfate 90 mcg/actuation HFA aerosol inhaler 2 puff IH Q6H PRN (Reason: shortness of breath or wheezing) Qty: 18 6RF ibuprofen [IBU-200] 200 mg tablet 600 mg PO Q6H PRN (Reason: pain) Qty: 90 2RF Rx Instructions: take w/ carafate. do not take on an empty stomach trazodone 50 mg tablet 2 tab PO DAILY Label Comments: TAKE 1 TO 2 TABLETS BY MOUTH AT BEDTIME lithium carbonate 300 mg tablet extended release 1 tab PO DAILY Label Comments: TAKE 1 TABLET BY MOUTH IN THE EVENING cholecalciferol (vitamin D3) [Vitamin D3] 50 mcg (2,000 unit) capsule 20,000 unit PO DAILY Label Comments: TAKE 1 CAPSULE BY MOUTH ONCE DAILY Spiriva Respimat 1.25 mcg/actuation mist 2 spray INHALATION BID Label Comments: INHALE 2 SPRAY(S) BY MOUTH IN THE MORNING cetirizine 10 mg tablet 10 mg DAILY famotidine 20 mg tablet 20 mg PO BID Flovent Diskus 100 mcg/actuation Blister With Device 1 inh INHALATION BID metoclopramide HCl [Reglan] 10 mg Tablet 10 mg PO QAC bupropion HCl 300 mg tablet extended release 24 hr 300 mg PO DAILY cholecalciferol (vitamin D3) 50 mcg (2,000 unit) capsule 50 mcg PO DAILY Label Comments: TAKE TWO CAPSULES BY MOUTH EVERY DAY Linzess 290 mcg capsule 290 mcg PO DAILY meclizine 25 mg tablet 12.5 mg PO TID PRN (Reason: dizziness) metformin 500 mg tablet 1,000 mg PO DAILY AM Label Comments: TAKE 1 TABLET BY MOUTH ONCE DAILY metformin 500 mg tablet extended release 24 hr 500 tab PO HS Label Comments: TAKE 2 TABLETS BY MOUTH IN THE MORNING AND 1 EVERY DAY AT BEDTIME escitalopram oxalate 20 mg tablet 20 mg PO DAILY AM Label Comments: TAKE 1 TABLET BY MOUTH ONCE DAILY midodrine 2.5 mg tablet 2 tab PO TID Label Comments: TAKE 2 TABLETS BY MOUTH THREE TIMES DAILY potassium chloride 20 mEq tablet extended release 20 tab PO DAILY AM Label Comments: TAKE 1 TABLET BY MOUTH ONCE DAILY Discharge Instructions Instructions: Hypokalemia (ED) Additional Instructions: Your potassium levels have returned to normal. However to bring your potassium levels back to a more ideal level, please take the supplemental potassium as directed. It has been sent to your pharmacy on file. Drink plenty of fluids and stay well-hydrated. If you notice any worsening of your symptoms, or any new symptoms such as vomiting, diarrhea, fever, chills, shortness of breath, chest pain, numbness, weakness, or fainting , please return immediately to the emergency department for reevaluation. Please follow up with your primary care provider as soon as possible for reassessment and reevaluation. As always, it was a pleasure participating in your medical care today. Medical Decision Making <Kain Cabrera MD - Last Filed: 03/19/22 07:53> 40s 6-year-old female presents from home via EMS. She reports having large-volume diarrhea with nausea 2 days ago. Feeling weak and slightly disoriented since that time. States she has had trouble with low potassium in the past. She arrives ER well-appearing, interactive and in no acute distress. Patient has a history of diabetes and previous episodes of hypokalemia. Differential diagnosis includes dehydration, electrolyte abnormality. Patient IV access established, referred for laboratory testing. Labs note white count 13, hematocrit 40, platelets 325. Sodium 140, potassium 2.9, chloride 102, bicarb 28, BUN 6, creatinine 0.9. Potassium supplemented in the emergency department both IV and p.o. will obtain repeat potassium. Patient to be signed out to Dr. Theodore at change of shift. Please see his note regarding final impression and disposition. <Christopher Theodore DO - Last Filed: 03/19/22 08:49> 40s 6-year-old female presents from home via EMS. She reports having large-volume diarrhea with nausea 2 days ago. Feeling weak and slightly disoriented since that time. States she has had trouble with low potassium in the past. She arrives ER well-appearing, interactive and in no acute distress. Patient has a history of diabetes and previous episodes of hypokalemia. Differential diagnosis includes dehydration, electrolyte abnormality. Patient IV access established, referred for laboratory testing. Labs note white count 13, hematocrit 40, platelets 325. Sodium 140, potassium 2.9, chloride 102, bicarb 28, BUN 6, creatinine 0.9. Potassium supplemented in the emergency department both IV and p.o. will obtain repeat potassium. Patient to be signed out to Dr. Theodore at change of shift. Please see his note regarding final impression and disposition. This is documentation 8:48 AM Patient signed out to me by my colleague Dr. Kain Cabrera. Please refer to his HPI, physical exam, assessment and plan. At time of signout we are awaiting repeat potassium level. Repeat potassium has returned at 3.6. Patient stable, vital signs stable. No clinical evidence of meningitis, urinary tract infection or pneumonia based on exam and clinical assessment by Dr. Cabrera or myself. On reassessment patient is stable for discharge. Will give potassium supplementation at home at 20 mEq twice daily for 5 days. Discussed red flags for which to return. I have extensively reviewed the treatment plan and discharge instructions with the patient. I have addressed all patient concerns at this time. The patient was made aware of what symptoms to monitor for that would warrant a return to the emergency department. Discussed the plan with the patient, they demonstrate verbal understanding and agreement with our assessment and plan at this time. The documentation in this chart was dictated using [employer] dictation software. Please excuse any dictation errors. HPI <Kain Cabrera MD - Last Filed: 03/19/22 07:53> General Mode of arrival: EMS. Date/Time Provider Initiated Documentation: 03/19/22 02:49. Limitations to Documentation: no limitations. Information obtained by: patient and EMS. History of Present Illness 46 year old F presents to the emergency department with the chief complaint of Weakness, dehydrated, described as moderate and similar to prior episodes, Patient reports no radiation. Patient started experiencing this hour(s) and it has been constant. No relieving factors improve symptom(s), No exacerbating factors reported . Patient notes loss of appetite, malaise, nausea/vomiting and other (Had diarrhea and vomiting 2 days ago). Patient did receive the following treatments prior to arrival, none Related Data Home Medications Medication Instructions Recorded Confirmed ibuprofen 200 mg tablet (IBU-200) 600 mg PO Q6H PRN pain #90 tabs 03/31/19 03/19/22 ondansetron 4 mg disintegrating 4 mg PO Q8H PRN nausea and 04/14/19 03/19/22 tablet vomiting #30 tabs albuterol sulfate 90 mcg/actuation 2 puff inhalation Q6H PRN 10/15/19 03/19/22 aerosol inhaler shortness of breath or wheezing #18 grams bupropion HCl 300 mg 24 hr tablet, 300 mg PO DAILY 02/14/21 03/19/22 extended release cetirizine 10 mg tablet 10 mg DAILY 02/14/21 03/19/22 cholecalciferol (vitamin D3) 50 50 mcg PO DAILY 02/14/21 03/19/22 mcg (2,000 unit) capsule famotidine 20 mg tablet 20 mg PO BID 02/14/21 03/19/22 fluticasone propionate 100 1 inh inhalation BID 02/14/21 03/19/22 mcg/actuation blister powder for inhalation (Flovent Diskus) linaclotide 290 mcg capsule 290 mcg PO DAILY 02/14/21 03/19/22 (Linzess) meclizine 25 mg tablet 12.5 mg PO TID PRN dizziness 02/14/21 03/19/22 metoclopramide HCl 10 mg tablet 10 mg PO QAC 02/14/21 03/19/22 (Reglan) escitalopram oxalate 20 mg tablet 20 mg PO DAILY AM 11/12/21 03/19/22 metformin 500 mg tablet 1,000 mg PO DAILY AM 11/12/21 03/19/22 metformin 500 mg tablet,extended 500 tab PO HS 11/12/21 03/19/22 release 24 hr midodrine 2.5 mg tablet 2 tab PO TID 11/12/21 03/19/22 potassium chloride 20 mEq 20 tab PO DAILY AM 11/12/21 03/19/22 tablet,extended release cholecalciferol (vitamin D3) 50 20,000 unit PO DAILY 03/19/22 03/19/22 mcg (2,000 unit) capsule (Vitamin D3) lithium carbonate 300 mg 1 tab PO DAILY 03/19/22 03/19/22 tablet,extended release potassium chloride 20 mEq 20 meq PO BID 5 days #10 tabs 03/19/22 tablet,extended release tiotropium bromide 1.25 2 spray inhalation BID 03/19/22 03/19/22 mcg/actuation mist for inhalation (Spiriva Respimat) trazodone 50 mg tablet 2 tab PO DAILY 03/19/22 03/19/22 Previous Rx's Medication Instructions Recorded ibuprofen 200 mg tablet (IBU-200) 600 mg PO Q6H PRN pain #90 tabs 03/31/19 ondansetron 4 mg disintegrating 4 mg PO Q8H PRN nausea and 04/14/19 tablet vomiting #30 tabs albuterol sulfate 90 mcg/actuation 2 puff inhalation Q6H PRN 10/15/19 aerosol inhaler shortness of breath or wheezing #18 grams potassium chloride 20 mEq 20 meq PO BID 5 days #10 tabs 03/19/22 tablet,extended release Allergies Allergy/AdvReac Type Severity Reaction Status Date / Time venom-honey bee Allergy Severe Verified 05/12/19 16:24 Sulfa (Sulfonamide Allergy HIVES Verified 05/12/19 16:24 Antibiotics) General MIKE: 2 Review of Systems <Kain Cabrera MD - Last Filed: 03/19/22 07:53> Narrative: 6 systems reviewed and otherwise negative. PFSH <Kain Cabrera MD - Last Filed: 03/19/22 07:53> All Active Problems (Updated 03/19/22 @ 07:53 by Kain Cabrera MD) Shortness of breath (Acute) Acute hypokalemia (Acute) Atypical chest pain (Acute) Muscle pain (Acute) Calculus of gallbladder with chronic cholecystitis without obstruction (Acute) Gallstones without obstruction of gallbladder (Acute) GERD (gastroesophageal reflux disease) (Chronic) Nausea and vomiting in adult (Acute) Right lower quadrant abdominal pain (Acute) Hypomagnesemia (Acute) Syncope (Chronic) Dehydration (Acute) Near syncope (Acute) Bradycardia (Acute) Dizziness (Acute) Nonspecific paroxysmal spell (Acute) DVT prophylaxis (Acute) Discharge planning issues (Acute) Pre-syncope (Acute) Abnormal CT of the abdomen (Acute) N&V (nausea and vomiting) (Acute) RLQ abdominal tenderness (Acute) Vertigo (Acute) Gastroesophageal reflux disease (Chronic) Asthma (Chronic) Depression (Chronic) Takes Fluoxetine 20mg QD with good impact on her depression, denies any SI. Encouraged to continue. to try to tame a hoiurde. Medical History Acne (04/21/13) Back pain Taking prednisone 60mg QD for 4 days. Currently on day 2. Not feeling it is making much of a difference but she was encouraged to take for the full 4 days. Also suggested she take the muscle relaxer only PRN as it makes her quite drowsy. Encouraged to take at night. To help with rest. Other valenzuela, suggested she increse Aleve to AM & PM dose, then supplement with 1000mg Acetaminophen every 4-6 hours up to a total of 4000mg/day. Suggested ice might help more than heat but either should be limited to only 20 minutes at a time. Use topicals (Solopas Gel or Aspercreame with Lidocaine seem to be quite helpful. Try to avoid sitting or standing still for prolonged periods of time. Walking on flat ground is encourage. Gestational diabetes mellitus High ankle sprain of right lower extremity Tobacco use (10/15/14) quit 01/2016 Surgical History ANAL SURGERY surgical drainage of anal fissure Dilation and curettage X 2 with losses discectomy (~2003) Endometrial Ablation (~2009) History of bilateral ligation of fallopian tubes History of cholecystectomy (~03/2019) History of discectomy History of esophagogastroduodenoscopy (EGD) (~01/2019) History of hysterectomy Ligation of fallopian tube S/P endometrial ablation irregular bleeding has restarted, neg EM bx 01/2016 Status post dilation and curettage Family History Mother Hyperlipidemia Thyroid disorder Father Essential hypertension Diabetes Personal history of malignant neoplasm prostate Heart disease Hyperlipidemia Myocardial infarction Social History Smoking/Tobacco Use Status: Current every day Tobacco Type: e-cigarettes Tobacco: How many years used: 20 Smoking risk assessment performed?: Yes Alcohol Intake: never Drug use: Never Substance use type: does not use Household members: family and other Details: Lives with demented mother and her brother current occupation: [employer]; [employer]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 Exam <Kain Cabrera MD - Last Filed: 03/19/22 07:53> Narrative Exam Narrative: GEN: awake, alert, oriented 3. Pleasant, well groomed, interactive. HEAD: Normocephalic, atraumatic ENT: Mucous membranes dry, oropharynx unremarkable, External ear exam unremarkable EYES: PERRL, EOMI NECK: Full ROM, no NOAH, no menigismus CHEST/RESP: Nontender, clear to auscultation bilateral, no wheeze/rhonchi/rales CARDIOVASCULAR: RRR, no murmur, rub brooks. 2+ Rad pulse bilateral ABDOMEN: Soft, minimal right lower quadrant tenderness without rebound or guarding,, no mass. +Bowel sounds EXT: Full ROM, no edema, no rash Neuro: Grossly normal neurologic exam, conversant, interactive. Psych: Speech fluent, thoughts congruent, affect normal Sign Out <Kain Cabrera MD - Last Filed: 03/19/22 07:53> Sign Out Data: Sign Out Comment: Followup repeat K+ Last updated by Kain Cabrera MD at 03/19/22 07:30
[2022-03-19 02:57] VITALS: RESP 18
[2022-03-19 03:28] LABS: Bilirubin Negative (Negative); Blood Negative (Negative); Clarity Clear (Clear); Glucose Negative (Negative); Ketones Negative (Negative); Leukocyte Esterase Negative (Negative); Nitrite Negative (Negative); Specific Gravity <= 1.005 (1.005-1.025); Urobilinogen 0.2 EU/dL (Up TO 0.2); pH 5.5 (5-8)
[2022-03-19] MEDS: Normal Saline 1,000 ML 1000 ML IV (03:44)
[2022-03-19 03:56] LABS: Abs Immature Grans 0.08 10^3/uL (0.0-0.06); Absolute Basophil Count 0.04 10^3/uL (0.0-0.2); Absolute Eosinophil Count 0.23 10^3/uL (0.0-0.7); Absolute Lymphocyte Count 2.64 10^3/uL (1.2-3.4); Absolute Monocyte Count 0.81 10^3/uL (0.1-0.8); Basophils % 0.3; Eosinophils % 1.7; HGB 13.7 g/dL (11.2-15.7); Immature Grans % 0.6; Lymphocytes % 19.9; MCH 29.8 pg (27.0-33.0); MCHC 34.3 % (32.0-36.0); MCV 87 fL (80-95); MPV 10.9 fL (8.0-11.0); Monocytes % 6.1; Neutrophils % 71.4; Platelet Count 325 10^3/uL (130-400); RBC 4.59 10^6/uL (3.93-5.22); RDW 13.9 % (11.7-14.6); RDW-SD 44.1 fL; WBC 13.26 10^3/uL (4.4-10.8)
[2022-03-19 03:58] LABS: Absolute Neutrophil Count 9.47 10^3/uL (1.2-6.7)
[2022-03-19 04:00] LABS: ALT 18 U/L (14-59); AST 21 U/L (15-37); Albumin 3.5 g/dL (3.4-5.0); Alkaline Phosphatase 116 U/L (46-116); Anion Gap 9.4 mmol/L (3-11); BUN 6 mg/dL (7-18); Bilirubin, Total 0.5 mg/dL (0.2-1.0); CO2 28.6 mmol/L (21.0-32.0); CREATININE 0.9 mg/dL (0.55-1.02); Calcium 9.1 mg/dL (8.5-10.1); Chloride 102 mmol/L (98-107); Estimated GFR 79.35 (mL/min/1.73m2); Glucose 118 mg/dL (74-106); Magnesium 1.9 mg/dL (1.8-2.4); Sodium 140 mmol/L (136-145); Total Protein 7.3 g/dL (6.4-8.2)
[2022-03-19 04:02] LABS: Potassium 2.9 mmol/L (3.5-5.1)
[2022-03-19] MEDS: POTASSIUM CHLORIDE 20 MEQ/100 ML BAG 50 MEQ IVPB (04:43)
[2022-03-19] MEDS: Potassium Chloride 20 MEQ TABCR PO (05:59)
[2022-03-19 07:12] VITALS: BP 115/73; PULSE 72; RESP 16; O2SAT 97
[2022-03-19 08:30] LABS: Potassium 3.6 mmol/L (3.5-5.1)
== END 2022-03-19 08:59 | disposition home or self-care (01) ==
PROVIDERS: Emergency Medicine; Emergency Provider Student in an Organized Health Care Education/Training Program
DX: E87.6 Hypokalemia (principal); R19.7 Diarrhea, unspecified; R11.0 Nausea; E11.9 Type 2 diabetes mellitus without complications; R10.813 Right lower quadrant abdominal tenderness; Z79.84 Long term (current) use of oral hypoglycemic drugs; Z90.710 Acquired absence of both cervix and uterus; Z90.49 Acquired absence of other specified parts of digestive tract
CPT/HCPCS: 36415; 80053; 96361; 96365; 96366; 99284; 81003; 83735; 84132; 85025; J3480

== ENCOUNTER 2022-06-15 12:15 | Emergency (ER) | payer MEDICAID, SELFPAY ==
[2022-06-15] VITALS (11 sets, daily range): BP systolic 103–123; BP diastolic 60–94; PULSE 76–96; RESP 15; TEMP 36.7; O2SAT 93–96
--- NOTE | 2022-06-15 12:45 | DI.CT_ITS ---
Exam(s) CT ABDOMEN PELVIS WO EXAM: CT ABDOMEN PELVIS WO CLINICAL HISTORY: Nausea vomiting right lower quadrant pain. TECHNIQUE: Imaging Protocol: Axial computed tomography images with coronal and sagittal reformatted images were created and reviewed. Oral: no COMPARISON: CT CT ABDOMEN PELVIS W from 01/23/[address] CHEST PE CTA from 02/12/[address] CHEST PE CTA from 02/14/2021 FINDINGS: ABDOMEN: Lung Bases: Normal where visualized. Liver: Normal density. No measurable mass. Gallbladder and biliary tract: Post cholecystectomy. No radiodense calculus or dilation. Pancreas: Normal density, no abnormal calcifications or inflammatory process. Spleen: Normal. Kidneys: Normal size, contour and axis. No radiodense stones or obstructive uropathy. Stable cyst lo wer pole right kidney. No suspicious masses seen. Adrenal glands: No masses seen. Lymph nodes: Within normal limits. Abdominal Aorta: Abdominal portion non-dilated. PELVIS: Bladder: Nearly empty. No gross wall thickening. Bowel: No obstruction or bowel wall thickening. Peritoneal cavity: No ascites or mesenteric inflammatory response. Stable simple appearing cyst in th e left lower quadrant which may represent a mesenteric cyst. Reproductive organs: Post hysterectomy. Surgical clip right lower quadrant ovaries unremarkable. Bones: Within normal limits. IMPRESSION: No acute abnormality in the abdomen or pelvis. RADIATION DOSE DELIVERED: 1,077.33mGy.cm Total DLP DATA REPOSITORY: All CT scans at this facility are submitted to the National Radiology Data Registry (NRDR) Dose Index Registry (DIR) with the [employer] (A[employer]). RADIATION OPTIMIZATION: All CT scans at this facility use at least one of these dose optimization te chniques: automated exposure control; mA and/or kV adjustment per patient size (includes targeted exa ms where dose is matched to clinical indication); or iterative reconstruction.
[2022-06-15] MEDS: Normal Saline 1,000 ML 1000 ML IV (13:11)
[2022-06-15] MEDS: Ondansetron 4 MG/2 ML VIAL IVP (13:15)
[2022-06-15 13:18] LABS: Abs Immature Grans 0.08 10^3/uL (0.0-0.06); Absolute Basophil Count 0.04 10^3/uL (0.0-0.2); Absolute Eosinophil Count 0.16 10^3/uL (0.0-0.7); Absolute Monocyte Count 0.65 10^3/uL (0.1-0.8); Basophils % 0.3; Eosinophils % 1.3; HCT 41.8 % (36.0-46.0); HGB 14.1 g/dL (11.2-15.7); Immature Grans % 0.6; Lymphocytes % 13.9; MCH 29.7 pg (27.0-33.0); MCHC 33.7 % (32.0-36.0); MCV 88 fL (80-95); MPV 10.2 fL (8.0-11.0); Monocytes % 5.3; Neutrophils % 78.6; Platelet Count 284 10^3/uL (130-400); RBC 4.74 10^6/uL (3.93-5.22); RDW-SD 40.6 fL; WBC 12.34 10^3/uL (4.4-10.8)
[2022-06-15 13:20] LABS: Absolute Lymphocyte Count 1.72 10^3/uL (1.2-3.4)
[2022-06-15 13:35] LABS: ALT 18 U/L (14-59); AST 18 U/L (15-37); Albumin 3.4 g/dL (3.4-5.0); Alkaline Phosphatase 107 U/L (46-116); Anion Gap 6.6 mmol/L (3-11); BUN 9 mg/dL (7-18); Bilirubin, Total 0.5 mg/dL (0.2-1.0); CO2 30.4 mmol/L (21.0-32.0); Chloride 102 mmol/L (98-107); Estimated GFR 69.49 (mL/min/1.73m2); Glucose 123 mg/dL (74-106); Lipase 108 U/L (16-77); Magnesium 1.9 mg/dL (1.8-2.4); Sodium 139 mmol/L (136-145); Total Protein 7.3 g/dL (6.4-8.2)
[2022-06-15 14:14] LABS: Bilirubin Negative (Negative); Blood Negative (Negative); Clarity Clear (Clear); Glucose Negative (Negative); Ketones Negative (Negative); Leukocyte Esterase Negative (Negative); Nitrite Negative (Negative); Urobilinogen 0.2 mg/dL (Up to 0.2); pH 7.5 (5-8)
[2022-06-15 14:34] LABS: Mucus Moderate (Negative)
[2022-06-15 14:35] LABS: Bacteria Negative HPF (Negative); Casts Negative LPF (Negative); Crystals Negative HPF (Negative); Epithelial Cells Few HPF (Negative); RBC Negative HPF (0-2); WBC Negative HPF (0-5)
[2022-06-15 14:36] LABS: C & S Indicated? No
--- NOTE | 2022-06-15 14:54 | ED.GENADUL_ITS ---
Discharge Plan Disposition Patient Disposition: Home Discharge Details Clinical Impression: Adverse drug reaction Primary Care Provider: Brenda Han ED Provider: James Sanchez Home Meds and New Rx's Prescriptions: Continued albuterol sulfate 90 mcg/actuation HFA aerosol inhaler 2 puff IH Q6H PRN (Reason: shortness of breath or wheezing) Qty: 18 6RF ibuprofen [IBU-200] 200 mg tablet 600 mg PO Q6H PRN (Reason: pain) Qty: 90 2RF Rx Instructions: take w/ carafate. do not take on an empty stomach trazodone 50 mg tablet 2 tab PO DAILY Patient Comments: TAKE 1 TO 2 TABLETS BY MOUTH AT BEDTIME lithium carbonate 300 mg tablet extended release 1 tab PO DAILY Patient Comments: TAKE 1 TABLET BY MOUTH IN THE EVENING cholecalciferol (vitamin D3) [Vitamin D3] 50 mcg (2,000 unit) capsule 20,000 unit PO DAILY Patient Comments: TAKE 1 CAPSULE BY MOUTH ONCE DAILY Spiriva Respimat 1.25 mcg/actuation mist 2 spray INHALATION BID Patient Comments: INHALE 2 SPRAY(S) BY MOUTH IN THE MORNING cetirizine 10 mg tablet 10 mg DAILY famotidine 20 mg tablet 20 mg PO BID Flovent Diskus 100 mcg/actuation Blister With Device 1 inh INHALATION BID metoclopramide HCl [Reglan] 10 mg Tablet 10 mg PO QAC bupropion HCl 300 mg tablet extended release 24 hr 300 mg PO DAILY cholecalciferol (vitamin D3) 50 mcg (2,000 unit) capsule 50 mcg PO DAILY Patient Comments: TAKE TWO CAPSULES BY MOUTH EVERY DAY Linzess 290 mcg capsule 290 mcg PO DAILY meclizine 25 mg tablet 12.5 mg PO TID PRN (Reason: dizziness) metformin 500 mg tablet 500 mg PO DAILY AM Patient Comments: TAKE 1 TABLET BY MOUTH ONCE DAILY metformin 500 mg tablet extended release 24 hr 500 tab PO HS Patient Comments: TAKE 2 TABLETS BY MOUTH IN THE MORNING AND 1 EVERY DAY AT BEDTIME escitalopram oxalate 20 mg tablet 20 mg PO DAILY AM Patient Comments: TAKE 1 TABLET BY MOUTH ONCE DAILY midodrine 2.5 mg tablet 2 tab PO TID Patient Comments: TAKE 2 TABLETS BY MOUTH THREE TIMES DAILY potassium chloride 20 mEq tablet extended release 20 tab PO DAILY AM Patient Comments: TAKE 1 TABLET BY MOUTH ONCE DAILY ondansetron 4 mg tablet,disintegrating 4 mg PO Q8H PRN (Reason: nausea and vomiting) Qty: 30 0RF Held Ozempic 1 mg/dose (4 mg/3 mL) pen injector 1 mg SUBCUT 4-8XD Hold Instructions: Please hold further medication until you talk to your primary care provider Discharge Instructions Instructions: Acute Nausea and Vomiting (ED) Additional Instructions: Please hold your injectable medication until you talk to your primary care provider as I feel that your symptoms today are secondary to your new medication. Return to the emergency department if you have any new or significant worsening of symptoms. Otherwise take nausea medication as needed and stay well-hydrated. Referrals: Brenda Han [Primary Care Provider] - Discharge Data Discharge Date/Time-TO BE ENTERED AT DEPARTURE: 06/15/22 15:42 Medical Decision Making Patient presenting to the emergency department for chief complaint of vomiting after starting new med. Yesterday patient took first injection of Ozempic and approximately 1 hour later she started having nausea and vomiting. This is continued all day today causing her to come into the emergency department. Patient denies any fever chills, does state some esophageal burning secondary to vomiting. Patient denies chest pain shortness of breath swelling of lips tongue mouth. Physical exam shows tenderness to the right lower quadrant, and some mild right CVA tenderness otherwise exam is unremarkable. We will plan on checking labs and CT imaging given focal tenderness but have high suspicion of this being more medication related. We will give Zofran and fluids pending results. Review of lab results show a slight leukocytosis, hypokalemia with potassium of 3.0 glucose of 123 with a lipase of 108. Urinalysis is overall unremarkable nondiagnostic. CT imaging reviewed along with radiologist interpretation that shows no acute abnormality of the abdomen. We will give patient oral potassium. I feel that patient's reaction is medication related and will inform patient to stop medication and follow-up with primary care provider. After discussion of diagnosis and plan of care patient has no further needs, questions, or concerns and states clear understanding to return to the emergency department for any worsening symptoms. This documentation was generated using [employer] system, please disregard any oddities of phrase or misspellings. Imaging Data Radiologic Study: Imaging: CT Scan Radiologist's impression: Exam(s) CT ABDOMEN PELVIS WO EXAM: CT ABDOMEN PELVIS WO CLINICAL HISTORY: Nausea vomiting right lower quadrant pain. TECHNIQUE: Imaging Protocol: Axial computed tomography images with coronal and sagittal reformatted images were created and reviewed. Oral: no COMPARISON: CT CT ABDOMEN PELVIS W from 01/23/[address] CHEST PE CTA from 02/12/[address] CHEST PE CTA from 02/14/2021 FINDINGS: ABDOMEN: Lung Bases: Normal where visualized. Liver: Normal density. No measurable mass. Gallbladder and biliary tract: Post cholecystectomy. No radiodense calculus or dilation. Pancreas: Normal density, no abnormal calcifications or inflammatory process. Spleen: Normal. Kidneys: Normal size, contour and axis. No radiodense stones or obstructive uropathy. Stable cyst lower pole right kidney. No suspicious masses seen. Adrenal glands: No masses seen. Lymph nodes: Within normal limits. Abdominal Aorta: Abdominal portion non-dilated. PELVIS: Bladder: Nearly empty. No gross wall thickening. Bowel: No obstruction or bowel wall thickening. Peritoneal cavity: No ascites or mesenteric inflammatory response. Stable simple appearing cyst in the left lower quadrant which may represent a mesenteric cyst. Reproductive organs: Post hysterectomy. Surgical clip right lower quadrant ovaries unremarkable. Bones: Within normal limits. IMPRESSION: No acute abnormality in the abdomen or pelvis. Lab Data Lab results reviewed: Yes I reviewed the patient's lab results. HPI General Date/Time Provider Initiated Documentation: 06/15/22 12:41 . Related Data Home Medications Medication Instructions Recorded Confirmed ibuprofen 200 mg tablet (IBU-200) 600 mg PO Q6H PRN pain #90 tabs 03/31/19 06/15/22 albuterol sulfate 90 mcg/actuation 2 puff inhalation Q6H PRN 10/15/19 06/15/22 aerosol inhaler shortness of breath or wheezing #18 grams bupropion HCl 300 mg 24 hr tablet, 300 mg PO DAILY 02/14/21 06/15/22 extended release cetirizine 10 mg tablet 10 mg DAILY 02/14/21 06/15/22 cholecalciferol (vitamin D3) 50 50 mcg PO DAILY 02/14/21 06/15/22 mcg (2,000 unit) capsule famotidine 20 mg tablet 20 mg PO BID 02/14/21 06/15/22 fluticasone propionate 100 1 inh inhalation BID 02/14/21 06/15/22 mcg/actuation blister powder for inhalation (Flovent Diskus) linaclotide 290 mcg capsule 290 mcg PO DAILY 02/14/21 06/15/22 (Linzess) meclizine 25 mg tablet 12.5 mg PO TID PRN dizziness 02/14/21 06/15/22 metoclopramide HCl 10 mg tablet 10 mg PO QAC 02/14/21 06/15/22 (Reglan) escitalopram oxalate 20 mg tablet 20 mg PO DAILY AM 11/12/21 06/15/22 metformin 500 mg tablet 500 mg PO DAILY AM 11/12/21 06/15/22 metformin 500 mg tablet,extended 500 tab PO HS 11/12/21 06/15/22 release 24 hr midodrine 2.5 mg tablet 2 tab PO TID 11/12/21 06/15/22 potassium chloride 20 mEq 20 tab PO DAILY AM 11/12/21 06/15/22 tablet,extended release cholecalciferol (vitamin D3) 50 20,000 unit PO DAILY 03/19/22 06/15/22 mcg (2,000 unit) capsule (Vitamin D3) lithium carbonate 300 mg 1 tab PO DAILY 03/19/22 06/15/22 tablet,extended release tiotropium bromide 1.25 2 spray inhalation BID 03/19/22 06/15/22 mcg/actuation mist for inhalation (Spiriva Respimat) trazodone 50 mg tablet 2 tab PO DAILY 03/19/22 06/15/22 ondansetron 4 mg disintegrating 4 mg PO Q8H PRN nausea and 06/15/22 tablet vomiting #30 tabs semaglutide 1 mg/dose (4 mg/3 mL) 1 mg subcut 4-8XD 06/15/22 06/15/22 subcutaneous pen injector (Ozempic) Previous Rx's Medication Instructions Recorded ibuprofen 200 mg tablet (IBU-200) 600 mg PO Q6H PRN pain #90 tabs 03/31/19 albuterol sulfate 90 mcg/actuation 2 puff inhalation Q6H PRN 10/15/19 aerosol inhaler shortness of breath or wheezing #18 grams ondansetron 4 mg disintegrating 4 mg PO Q8H PRN nausea and 06/15/22 tablet vomiting #30 tabs Allergies Allergy/AdvReac Type Severity Reaction Status Date / Time venom-honey bee Allergy Severe Verified 06/15/22 12:47 Sulfa (Sulfonamide Allergy HIVES Verified 06/15/22 12:47 Antibiotics) General Stated Complaint: Abd Prob MIKE: 3 PFSH All Active Problems (Updated 06/15/22 @ 15:34 by James Sanchez NP) Shortness of breath (Acute) Adverse drug reaction (Acute) Atypical chest pain (Acute) Muscle pain (Acute) Calculus of gallbladder with chronic cholecystitis without obstruction (Acute) Gallstones without obstruction of gallbladder (Acute) GERD (gastroesophageal reflux disease) (Chronic) Nausea and vomiting in adult (Acute) Right lower quadrant abdominal pain (Acute) Hypomagnesemia (Acute) Syncope (Chronic) Dehydration (Acute) Near syncope (Acute) Bradycardia (Acute) Dizziness (Acute) Nonspecific paroxysmal spell (Acute) DVT prophylaxis (Acute) Discharge planning issues (Acute) Pre-syncope (Acute) Abnormal CT of the abdomen (Acute) N&V (nausea and vomiting) (Acute) RLQ abdominal tenderness (Acute) Vertigo (Acute) Gastroesophageal reflux disease (Chronic) Asthma (Chronic) Depression (Chronic) Takes Fluoxetine 20mg QD with good impact on her depression, denies any SI. Encouraged to continue. to try to tame a hoiurde. Medical History Acne (04/21/13) Back pain Taking prednisone 60mg QD for 4 days. Currently on day 2. Not feeling it is making much of a difference but she was encouraged to take for the full 4 days. Also suggested she take the muscle relaxer only PRN as it makes her quite drowsy. Encouraged to take at night. To help with rest. Other valenzuela, suggested she increse Aleve to AM & PM dose, then supplement with 1000mg Acetaminophen every 4-6 hours up to a total of 4000mg/day. Suggested ice might help more than heat but either should be limited to only 20 minutes at a time. Use topicals (Sol[place]as Gel or Aspercreame with Lidocaine seem to be quite helpful. Try to avoid sitting or standing still for prolonged periods of time. Walking on flat ground is encourage. Gestational diabetes mellitus High ankle sprain of right lower extremity Tobacco use (10/15/14) quit 01/2016 Surgical History ANAL SURGERY surgical drainage of anal fissure Dilation and curettage X 2 with losses discectomy (~2003) Endometrial Ablation (~2009) History of bilateral ligation of fallopian tubes History of cholecystectomy (~03/2019) History of discectomy History of esophagogastroduodenoscopy (EGD) (~01/2019) History of hysterectomy Ligation of fallopian tube S/P endometrial ablation irregular bleeding has restarted, neg EM bx 01/2016 Status post dilation and curettage Family History Mother Hyperlipidemia Thyroid disorder Father Essential hypertension Diabetes Personal history of malignant neoplasm prostate Heart disease Hyperlipidemia Myocardial infarction Social History Smoking/Tobacco Use Status: Former Tobacco Use Quit Date: 12/15/15 Tobacco: How many years used: 20 Smoking risk assessment performed?: Yes Alcohol Intake: never Drug use: Never Substance use type: does not use Household members: family and other Details: Lives with demented mother and her brother current occupation: [employer]; [employer]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 Course Vital Signs Vital signs: Vital Signs Temperature 36.7 C 06/15/22 12:30 Pulse 96 H 06/15/22 12:30 Respiratory Rate 15 06/15/22 12:30 Blood Pressure 120/84 06/15/22 12:30 Pulse Oximetry 95 06/15/22 12:30 Temperature 36.7 C 06/15/22 12:30 Temperature Source Tympanic 06/15/22 12:30 Pulse 76 06/15/22 13:45 Respiratory Rate 15 06/15/22 12:30 Respiratory Effort Normal 06/15/22 13:07 Blood Pressure 108/60 06/15/22 13:45 Blood Pressure Mean 73 06/15/22 13:45 Blood Pressure Position Sitting 06/15/22 12:30 Pulse Oximetry 95 06/15/22 13:46 Oxygen Delivery Method Room Air 06/15/22 12:30 Oxygen Flow Rate 0 06/15/22 12:30 Pain Level 8 06/15/22 13:15 Lab/Test Results Lab/Test Results: Laboratory Tests Range/Units 06/15/22 06/15/22 06/15/22 13:10 13:10 14:05 WBC (4.4-10.8) 10^3/uL 12.34 H RBC (3.93-5.22) 10^6/uL 4.74 Hgb (11.2-15.7) g/dL 14.1 Hct (36.0-46.0) % 41.8 MCV (80-95) fL 88 MCH (27.0-33.0) pg 29.7 MCHC (32.0-36.0) % 33.7 RDW (11.7-14.6) % 13.0 Plt Count (130-400) 10^3/uL 284 MPV (8.0-11.0) fL 10.2 Immature Gran % 0.6 Neutrophils % 78.6 Lymphocytes % 13.9 Monocytes % 5.3 Eosinophils % 1.3 Basophils % 0.3 Nucleated RBC % (0.0-0.3) % 0.0 Absolute Neutrophils (1.2-6.7) 10^3/uL 9.70 H Absolute Lymphocytes (1.2-3.4) 10^3/uL 1.72 Absolute Monocytes (0.1-0.8) 10^3/uL 0.65 Absolute Eosinophils (0.0-0.7) 10^3/uL 0.16 Absolute Basophils (0.0-0.2) 10^3/uL 0.04 Sodium (136-145) mmol/L 139 Potassium (3.5-5.1) mmol/L 3.0 L Chloride (98-107) mmol/L 102 Carbon Dioxide (21.0-32.0) mmol/L 30.4 Anion Gap (3-11) mmol/L 6.6 BUN (7-18) mg/dL 9 Creatinine (0.55-1.02) mg/dL 1.0 Est GFR (CKD-EPI 2020) (mL/min/1.73m2) 69.49 Glucose (74-106) mg/dL 123 H Calcium (8.5-10.1) mg/dL 9.0 Magnesium (1.8-2.4) mg/dL 1.9 Total Bilirubin (0.2-1.0) mg/dL 0.5 AST (15-37) U/L 18 ALT (14-59) U/L 18 Alkaline Phosphatase (46-116) U/L 107 Total Protein (6.4-8.2) g/dL 7.3 Albumin (3.4-5.0) g/dL 3.4 Lipase (16-77) U/L 108 H Urine Color (Yellow) Yellow Urine Clarity (Clear) Clear Urine pH (5-8) 7.5 Ur Specific [place] (1.005-1.025) 1.020 Urine Protein (Negative) mg/dL Trace H Urine Ketones (Negative) mg/dL Negative Urine Blood (Negative) Negative Urine Nitrite (Negative) Negative Urine Bilirubin (Negative) Negative Urine Urobilinogen (Up to 0.2) mg/dL 0.2 Ur Leukocyte Esterase (Negative) Negative Urine RBC (0-2) HPF Negative Urine WBC (0-5) HPF Negative Ur Epithelial Cells (Negative) HPF Few Urine Crystals (Negative) HPF Negative Urine Bacteria (Negative) HPF Negative Urine Casts (Negative) LPF Negative Urine Mucus (Negative) Moderate Ur Culture Indicated? No Urine Glucose (Negative) mg/dL Negative
[2022-06-15] MEDS: Potassium Chloride 20 MEQ TABCR 40 MEQ PO (15:37)
== END 2022-06-15 15:42 | disposition home or self-care (01) ==
PROVIDERS: Emergency Provider Nurse Practitioner Family; PCP Nurse Practitioner Occupational Health
DX: T50.905A Adverse effect of unspecified drugs, medicaments and biological substances, initial encounter (principal); R11.2 Nausea with vomiting, unspecified
CPT/HCPCS: 36415; 80053; 83690; 96361; 96374; 99284; 74176; 81003; 81015; 83735; 85025; J2405

== ENCOUNTER 2022-09-02 18:17 | Emergency (ER) | payer MEDICAID, SELFPAY ==
[2022-09-02] VITALS (27 sets, daily range): BP systolic 100–159; BP diastolic 56–137; PULSE 67–94; RESP 17–24; TEMP 36.9; O2SAT 95–98
--- NOTE | 2022-09-02 18:45 | DI.CT_ITS ---
Exam(s) CT ABDOMEN PELVIS W EXAM: CT ABDOMEN PELVIS W CLINICAL HISTORY: Lower abdominal pain TECHNIQUE: Imaging Protocol: Axial computed tomography images with coronal and sagittal reformatted images were created and reviewed CONTRAST MATERIAL: Intravenous: Omnipaque 350 Contrast volume:100 mL Oral: No COMPARISON: CT CT ABDOMEN PELVIS W from 01/23/[address] CHEST PE CTA from 02/14/[address] ABDOMEN PELVIS WO from 06/15/2022 FINDINGS: ABDOMEN: Lung Bases: Normal where visualized. Liver: Normal density. No measurable mass. Portal, Superior Mesenteric, and Splenic Veins: Unremarkable. Gallbladder and Biliary Tract: Status post cholecystectomy. No significant biliary ductal dilatation . Pancreas: Normal density, no abnormal calcifications or inflammatory process. Spleen: Normal. Adrenals: No masses seen. Kidneys: Normal size, contour and axis. No radiodense stones or obstructive uropathy. There is a stab le simple cyst in the lower pole of the right kidney. No follow-up is recommended. Abdominal Aorta: Abdominal portion non-dilated. Bowel: No obstruction or bowel wall thickening. Appendix is unremarkable. Peritoneal Cavity: No ascites, collection or mesenteric inflammatory response. No free air.There is a stable simple cysts seen in the left adnexa. 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 Lymph Nodes: Within normal limits. Bones: Within normal limits for the patient's age. Soft Tissues: Unremarkable. PELVIS: Bladder: Symmetric distention, no gross wall thickening. Reproductive Organs: Status post hysterectomy. Lymph Nodes: Within normal limits. Bones: Within normal limits for the patient's age. IMPRESSION: No acute abdominal or pelvic process. RADIATION DOSE DELIVERED: 1,194.24mGy.cm Total DLP DATA REPOSITORY: All CT scans at this facility are submitted to the National Radiology Data Registry (NRDR) Dose Index Registry (DIR) with the [employer] (ACR). RADIATION OPTIMIZATION: All CT scans at this facility use at least one of these dose optimization te chniques: automated exposure control; mA and/or kV adjustment per patient size (includes targeted exa ms where dose is matched to clinical indication); or iterative reconstruction.
--- NOTE | 2022-09-02 18:53 | W.ED.GENAD ---
Discharge Plan Disposition Patient Disposition: Home Discharge Details Clinical Impression: Diarrhea Primary Care Provider: Brenda Han ED Provider: James Sanchez Home Meds and New Rx's Prescriptions: Continued albuterol sulfate 90 mcg/actuation HFA aerosol inhaler 2 puff IH Q6H PRN (Reason: shortness of breath or wheezing) Qty: 18 6RF ibuprofen [IBU-200] 200 mg tablet 600 mg PO Q6H PRN (Reason: pain) Qty: 90 2RF Rx Instructions: take w/ carafate. do not take on an empty stomach trazodone 50 mg tablet 2 tab PO DAILY Patient Comments: TAKE 1 TO 2 TABLETS BY MOUTH AT BEDTIME lithium carbonate 300 mg tablet extended release 1 tab PO DAILY Patient Comments: TAKE 1 TABLET BY MOUTH IN THE EVENING cholecalciferol (vitamin D3) [Vitamin D3] 50 mcg (2,000 unit) capsule 20,000 unit PO DAILY Patient Comments: TAKE 1 CAPSULE BY MOUTH ONCE DAILY Spiriva Respimat 1.25 mcg/actuation mist 2 spray INHALATION BID Patient Comments: INHALE 2 SPRAY(S) BY MOUTH IN THE MORNING cetirizine 10 mg tablet 10 mg DAILY famotidine 20 mg tablet 20 mg PO BID Flovent Diskus 100 mcg/actuation Blister With Device 1 inh INHALATION BID metoclopramide HCl [Reglan] 10 mg Tablet 10 mg PO QAC bupropion HCl 300 mg tablet extended release 24 hr 300 mg PO DAILY cholecalciferol (vitamin D3) 50 mcg (2,000 unit) capsule 50 mcg PO DAILY Patient Comments: TAKE TWO CAPSULES BY MOUTH EVERY DAY Linzess 290 mcg capsule 290 mcg PO DAILY meclizine 25 mg tablet 12.5 mg PO TID PRN (Reason: dizziness) metformin 500 mg tablet 500 mg PO DAILY AM Patient Comments: TAKE 1 TABLET BY MOUTH ONCE DAILY metformin 500 mg tablet extended release 24 hr 500 tab PO HS Patient Comments: TAKE 2 TABLETS BY MOUTH IN THE MORNING AND 1 EVERY DAY AT BEDTIME escitalopram oxalate 20 mg tablet 20 mg PO DAILY AM Patient Comments: TAKE 1 TABLET BY MOUTH ONCE DAILY midodrine 2.5 mg tablet 2 tab PO TID Patient Comments: TAKE 2 TABLETS BY MOUTH THREE TIMES DAILY potassium chloride 20 mEq tablet extended release 20 tab PO DAILY AM Patient Comments: TAKE 1 TABLET BY MOUTH ONCE DAILY Ozempic 1 mg/dose (4 mg/3 mL) pen injector 1 mg SUBCUT 4-8XD Hold Instructions: Please hold further medication until you talk to your primary care provider ondansetron 4 mg tablet,disintegrating 4 mg PO Q8H PRN (Reason: nausea and vomiting) Qty: 30 0RF Discharge Instructions Instructions: Acute Diarrhea (ED) Additional Instructions: At this time your work-up is unremarkable and nonworrisome for any emergent findings. You should continue to stay well-hydrated and slowly advance your diet as tolerated but it is recommended for more of a mild diet. We will refer you to your primary care provider to follow-up with your symptoms later this week but if you develop any new or significant worsening of symptoms please return the emergency department for reassessment. Referrals: Brenda Han [Primary Care Provider] - Discharge Data Discharge Date/Time-TO BE ENTERED AT DEPARTURE: 09/02/22 21:38 Medical Decision Making Patient presenting to the emergency department for chief complaint of abdominal pain. Patient reports diarrhea that is darker in color. Patient was concerned due to history of GI bleed but she states that was a while ago due to her GERD and high dose use of NSAIDs. She states she has stopped these medications. Patient denies any chest pain syncope shortness of breath or other symptoms. Physical exam shows some lower abdominal discomfort bilateral but no focal findings. 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 Exam is otherwise nondiagnostic. We will plan on checking labs and CT imaging. Pending results will give famotidine, Protonix, and Zofran Review of patient's labs show an unremarkable CBC with no signs of anemia, CMP showing slightly low potassium at 3.2 which we will orally replete, otherwise nondiagnostic CMP. CT imaging showed no acute findings only incidental findings. After review of labs and using the Tiffanie-Blatchford Bleeding Score (GBS) with score of 0, ?Low Risk? GI bleed, and is highly sensitive (99.6% in a 2007 retrospective study) for predicting which patients did not require any ?medical intervention?: blood transfusion, endoscopy, or surgery. This was confirmed in a 2009 Lancet study where patients with a score of 0 were actually discharged and had no GI bleeding mortality at 6 month followup, I do feel that patient can be safely discharged to follow-up with primary care provide for discussion of incidental finding evaluation and reevaluation of diarrhea. Discussed with patient things that she can do for acute diarrhea pending follow-up. After discussion of diagnosis and plan of care patient has no further needs, questions, or concerns and states clear understanding to return to the emergency department for any worsening symptoms. This documentation was generated using [employer] dictation system, please disregard any oddities of phrase or misspellings. Imaging Data Radiologic Study: Imaging: CT Scan Radiologist's impression: Patient Name: Janessa Covarrubias MUnit #: [id number]: ER Ordering Provider: : [facility] Primary Care Provider: Leidy Han of Exam: 09/02/22Sex: F : 1975Age: 47 Exam(s) PROCEDURE INFORMATION: Exam: CT Abdomen And Pelvis With Contrast Exam date and time: 09/02/2022 7:11 PM Age: 47 years old Clinical indication: Other: Blood in stool TECHNIQUE: Imaging protocol: Computed tomography of the abdomen and pelvis with contrast. Contrast material: OMNIPAQUE 350; Contrast volume: 100 ml; Contrast route: INTRAVENOUS (IV); COMPARISON: CT ABDOMEN PELVIS WO 06/15/2022 2:16 PM FINDINGS: Heart: Presumed cardiac loop monitor partially seen in the expected position left chest wall. Liver: No hepatic masses. Gallbladder and bile ducts: Cholecystectomy. No significant biliary dilation or radiopaque stones in the biliary tree. Pancreas: No ductal dilation. No masses. Spleen: No splenomegaly or focal lesions. Adrenal glands: No mass. Kidneys and ureters: Benign-appearing renal cysts and probable cysts. No renal masses or hydronephrosis bilaterally. Stomach and bowel: Colonic diverticulosis without diverticulitis. No focal pathology in the small bowel. Appendix: Normal morphology of the appendix. 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 Vasculature: No abdominal aortic aneurysm. Lymph nodes: No significantly enlarged lymph nodes. Urinary bladder: Unremarkable as visualized. Reproductive: Right adnexal surgical clips. Tiny benign-appearing likely follicle the left ovary. Hysterectomy. Bones/joints: No acute fracture or subluxation. Soft tissues: Mild dependent subcutaneous edema. IMPRESSION: 1. No acute findings. 2. Incidental findings as described. Lab Data Lab results reviewed: Yes I reviewed the patient's lab results. HPI General Mode of arrival: ambulatory. Date/Time Provider Initiated Documentation: 09/02/22 18:17. Limitations to Documentation: no limitations. Information obtained by: patient and RN notes reviewed. History of Present Illness 47 year old F presents to the emergency department with the chief complaint of dark diarrhea with lower abdominal pain, described as moderate, Quality is described as burning and aching, and is localized to the abdomen. Patient started experiencing this hour(s) (12) and it has been constant. No relieving factors improve symptom(s), No exacerbating factors reported . Patient did receive the following treatments prior to arrival, none Related Data Home Medications Medication Instructions Recorded Confirmed ibuprofen 200 mg tablet (IBU-200) 600 mg PO Q6H PRN pain #90 tabs 03/31/19 06/15/22 albuterol sulfate 90 mcg/actuation 2 puff inhalation Q6H PRN 10/15/19 06/15/22 aerosol inhaler shortness of breath or wheezing #18 grams bupropion HCl 300 mg 24 hr tablet, 300 mg PO DAILY 02/14/21 06/15/22 extended release cetirizine 10 mg tablet 10 mg DAILY 02/14/21 06/15/22 cholecalciferol (vitamin D3) 50 50 mcg PO DAILY 02/14/21 06/15/22 mcg (2,000 unit) capsule famotidine 20 mg tablet 20 mg PO BID 02/14/21 06/15/22 fluticasone propionate 100 1 inh inhalation BID 02/14/21 06/15/22 mcg/actuation blister powder for inhalation (Flovent Diskus) linaclotide 290 mcg capsule 290 mcg PO DAILY 02/14/21 06/15/22 (Linzess) meclizine 25 mg tablet 12.5 mg PO TID PRN dizziness 02/14/21 06/15/22 metoclopramide HCl 10 mg tablet 10 mg PO QAC 02/14/21 06/15/22 (Reglan) escitalopram oxalate 20 mg tablet 20 mg PO DAILY AM 11/12/21 06/15/22 metformin 500 mg tablet 500 mg PO DAILY AM 11/12/21 06/15/22 metformin 500 mg tablet,extended 500 tab PO HS 11/12/21 06/15/22 release 24 hr midodrine 2.5 mg tablet 2 tab PO TID 11/12/21 06/15/22 potassium chloride 20 mEq 20 tab PO DAILY AM 11/12/21 06/15/22 tablet,extended release cholecalciferol (vitamin D3) 50 20,000 unit PO DAILY 03/19/22 06/15/22 mcg (2,000 unit) capsule (Vitamin D3) lithium carbonate 300 mg 1 tab PO DAILY 03/19/22 06/15/22 tablet,extended release tiotropium bromide 1.25 2 spray inhalation BID 03/19/22 06/15/22 mcg/actuation mist for inhalation (Spiriva Respimat) trazodone 50 mg tablet 2 tab PO DAILY 03/19/22 06/15/22 ondansetron 4 mg disintegrating 4 mg PO Q8H PRN nausea and 06/15/22 tablet vomiting #30 tabs semaglutide 1 mg/dose (4 mg/3 mL) 1 mg subcut 4-8XD 06/15/22 06/15/22 subcutaneous pen injector (Ozempic) Previous Rx's Medication Instructions Recorded ibuprofen 200 mg tablet (IBU-200) 600 mg PO Q6H PRN pain #90 tabs 03/31/19 albuterol sulfate 90 mcg/actuation 2 puff inhalation Q6H PRN 10/15/19 aerosol inhaler shortness of breath or wheezing #18 grams ondansetron 4 mg disintegrating 4 mg PO Q8H PRN nausea and 06/15/22 tablet vomiting #30 tabs Allergies Allergy/AdvReac Type Severity Reaction Status Date / Time venom-honey bee Allergy Severe Verified 09/02/22 18:23 Sulfa (Sulfonamide Allergy HIVES Verified 09/02/22 18:23 Antibiotics) General Stated Complaint: GI Bleed MIKE: 3 Review of Systems Constitutional Constitutional: Denies chills, Denies fever(s) and Reports poor appetite Cardiovascular Cardiovascular: Denies chest pain and Denies dyspnea Respiratory Respiratory: Denies cough and Denies dyspnea Gastrointestinal Gastrointestinal: Reports as per HPI, Reports abdominal pain, Denies melena, Denies hematochezia, Denies change in bowel habits, Denies coffee ground emesis, Denies constipation, Reports diarrhea, Reports nausea and Denies vomiting Genitourinary Genitourinary: Denies hematuria, Denies urinary incontinence, Denies urinary hesitancy and Denies urinary urgency Integumentary/Breasts Skin/Breast: Denies rash PFSH All Active Problems (Updated 09/02/22 @ 21:09 by James Sanchez NP) Shortness of breath (Acute) Diarrhea (Acute) Atypical chest pain (Acute) Muscle pain (Acute) Calculus of gallbladder with chronic cholecystitis without obstruction (Acute) Gallstones without obstruction of gallbladder (Acute) GERD (gastroesophageal reflux disease) (Chronic) Nausea and vomiting in adult (Acute) Right lower quadrant abdominal pain (Acute) Hypomagnesemia (Acute) Syncope (Chronic) Dehydration (Acute) Near syncope (Acute) Bradycardia (Acute) Dizziness (Acute) Nonspecific paroxysmal spell (Acute) DVT prophylaxis (Acute) Discharge planning issues (Acute) Pre-syncope (Acute) Abnormal CT of the abdomen (Acute) N&V (nausea and vomiting) (Acute) RLQ abdominal tenderness (Acute) Vertigo (Acute) Gastroesophageal reflux disease (Chronic) Asthma (Chronic) Depression (Chronic) Takes Fluoxetine 20mg QD with good impact on her depression, denies any SI. Encouraged to continue. to try to tame a hoiurde. Medical History Acne (04/21/13) Back pain Taking prednisone 60mg QD for 4 days. Currently on day 2. Not feeling it is making much of a difference but she was encouraged to take for the full 4 days. Also suggested she take the muscle relaxer only PRN as it makes her quite drowsy. Encouraged to take at night. To help with rest. Other valenzuela, suggested she increse Aleve to AM & PM dose, then supplement with 1000mg Acetaminophen every 4-6 hours up to a total of 4000mg/day. Suggested ice might help more than heat but either should be limited to only 20 minutes at a time. Use topicals (Solopas Gel or Aspercreame with Lidocaine seem to be quite helpful. Try to avoid sitting or standing still for prolonged periods of time. Walking on flat ground is encourage. Gestational diabetes mellitus High ankle sprain of right lower extremity Tobacco use (10/15/14) quit 01/2016 Surgical History ANAL SURGERY surgical drainage of anal fissure Dilation and curettage X 2 with losses discectomy (~2003) Endometrial Ablation (~2009) History of bilateral ligation of fallopian tubes History of cholecystectomy (~03/2019) History of discectomy History of esophagogastroduodenoscopy (EGD) (~01/2019) History of hysterectomy Ligation of fallopian tube S/P endometrial ablation irregular bleeding has restarted, neg EM bx 01/2016 Status post dilation and curettage Family History Mother Hyperlipidemia Thyroid disorder Father Essential hypertension Diabetes Personal history of malignant neoplasm prostate Heart disease Hyperlipidemia Myocardial infarction Social History Smoking/Tobacco Use Status: Former Tobacco Use Quit Date: 12/15/15 Tobacco: How many years used: 20 Smoking risk assessment performed?: Yes Alcohol Intake: never Drug use: Never Substance use type: does not use Household members: family and other Details: Lives with demented mother and her brother current occupation: [employer]; [employer]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 Exam Const General: cooperative Orientation: alert, awake and oriented x3 Resp Effort & Inspection: normal respiratory effort and able to speak in complete sentences Auscultation: clear to auscultation bilaterally Cardio Rate: regular rate Rhythm: regular rhythm Heart Sounds: S1 normal and S2 normal GI Palpation: soft, no hepatosplenomegaly, not firm, no guarding, no masses, no pulsatile masses, not rigid, no splenomegaly and tender in the LLQ and in the RLQ Auscultation: normal bowel sounds Rectal Exam - female: visual inspection normal, normal sphincter tone, heme negative stool and No tenderness Back/Spine/Pelvis Back: no CVA tenderness Neuro General: patient alert, patient awake, patient oriented x3, gait normal and moves all extremities Course Vital Signs Vital signs: Vital Signs Temperature 36.9 C 09/02/22 18:20 Pulse 94 H 09/02/22 18:20 Respiratory Rate 20 09/02/22 18:20 Blood Pressure 134/92 H 09/02/22 18:20 Pulse Oximetry 95 09/02/22 18:20 Temperature 36.9 C 09/02/22 18:20 Temperature Source Oral 09/02/22 18:20 Pulse 94 H 09/02/22 18:20 Respiratory Rate 20 09/02/22 18:20 Blood Pressure 134/92 H 09/02/22 18:20 Blood Pressure Position Sitting 09/02/22 18:20 Pulse Oximetry 95 09/02/22 18:20 Oxygen Delivery Method Room Air 09/02/22 18:20 Oxygen Flow Rate 0 09/02/22 18:20 Pain Level 8 09/02/22 18:20
[2022-09-02 19:00] LABS: Abs Immature Grans 0.04 10^3/uL (0.0-0.06); Absolute Basophil Count 0.04 10^3/uL (0.0-0.2); Absolute Eosinophil Count 0.43 10^3/uL (0.0-0.7); Absolute Lymphocyte Count 2.69 10^3/uL (1.2-3.4); Absolute Monocyte Count 0.61 10^3/uL (0.1-0.8); Absolute Neutrophil Count 6.94 10^3/uL (1.2-6.7); Basophils % 0.4; HCT 39.8 % (36.0-46.0); Immature Grans % 0.4; MCH 28.6 pg (27.0-33.0); MCHC 32.7 % (32.0-36.0); MCV 88 fL (80-95); MPV 10.9 fL (8.0-11.0); Monocytes % 5.7; Neutrophils % 64.5; Platelet Count 331 10^3/uL (130-400); RBC 4.55 10^6/uL (3.93-5.22); RDW 12.9 % (11.7-14.6); RDW-SD 41.1 fL; WBC 10.75 10^3/uL (4.4-10.8)
[2022-09-02] MEDS: Ondansetron 4 MG/2 ML VIAL IVP (19:04)
[2022-09-02] MEDS: Pantoprazole 40 MG VIAL IVP (19:08)
[2022-09-02 19:10] LABS: ALT 17 U/L (14-59); AST 18 U/L (15-37); Albumin 3.6 g/dL (3.4-5.0); Alkaline Phosphatase 119 U/L (46-116); Anion Gap 7.7 mmol/L (3-11); BUN 9 mg/dL (7-18); Bilirubin, Total 0.2 mg/dL (0.2-1.0); CO2 27.3 mmol/L (21.0-32.0); CREATININE 1.1 mg/dL (0.55-1.02); Calcium 8.9 mg/dL (8.5-10.1); Chloride 104 mmol/L (98-107); Estimated GFR 61.98 (mL/min/1.73m2); Glucose 169 mg/dL (74-106); Magnesium 2.1 mg/dL (1.8-2.4); Potassium 3.2 mmol/L (3.5-5.1); Sodium 139 mmol/L (136-145); Total Protein 7.4 g/dL (6.4-8.2)
[2022-09-02] MEDS: Omnipaque 350 MG/ML 100 ML BTL IJ (19:10)
[2022-09-02] MEDS: Normal Saline - Diluent 50 ML VIAL IJ (19:10)
[2022-09-02] MEDS: POTASSIUM CHLORIDE 20 MEQ, POTASSIUM CHLORIDE 10 MEQ 30 MEQ PO (19:30)
[2022-09-02] MEDS: ACETAMINOPHEN 1,000 MG/100 ML BTL 400 MG IVPB (19:31)
[2022-09-02] MEDS: FAMOTIDINE 20 MG in Normal Saline 100 ML 400 MG IVPB (19:45)
--- NOTE | 2022-09-02 20:36 | DI.VRAD_ITS ---
PROCEDURE INFORMATION: Exam: CT Abdomen And Pelvis With Contrast Exam date and time: 09/02/2022 7:11 PM Age: 47 years old Clinical indication: Other: Blood in stool TECHNIQUE: Imaging protocol: Computed tomography of the abdomen and pelvis with contrast. Contrast material: OMNIPAQUE 350; Contrast volume: 100 ml; Contrast route: INTRAVENOUS (IV); COMPARISON: CT ABDOMEN PELVIS WO 06/15/2022 2:16 PM FINDINGS: Heart: Presumed cardiac loop monitor partially seen in the expected position left chest wall. Liver: No hepatic masses. Gallbladder and bile ducts: Cholecystectomy. No significant biliary dilation or radiopaque stones in the biliary tree. Pancreas: No ductal dilation. No masses. Spleen: No splenomegaly or focal lesions. Adrenal glands: No mass. Kidneys and ureters: Benign-appearing renal cysts and probable cysts. No renal masses or hydronephrosis bilaterally. Stomach and bowel: Colonic diverticulosis without diverticulitis. No focal pathology in the small bowel. Appendix: Normal morphology of the appendix. 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 Vasculature: No abdominal aortic aneurysm. Lymph nodes: No significantly enlarged lymph nodes. Urinary bladder: Unremarkable as visualized. Reproductive: Right adnexal surgical clips. Tiny benign-appearing likely follicle the left ovary. Hysterectomy. Bones/joints: No acute fracture or subluxation. Soft tissues: Mild dependent subcutaneous edema. IMPRESSION: 1. No acute findings. 2. Incidental findings as described. Dictated and Authenticated by: Kamini Joaquin MD. Ordering:MARCIA Ramirez MD
--- NOTE | 2022-09-02 23:07 | NUR.NOTE ---
Referral per Darell Sanchez to PCP this week for diarrhea. Put the referral in the care manger's box for f/u assistance.Nursing Note:
== END 2022-09-02 21:38 | disposition home or self-care (01) ==
PROVIDERS: Emergency Provider Nurse Practitioner Family; PCP Nurse Practitioner Occupational Health
DX: R19.7 Diarrhea, unspecified (principal); R10.9 Unspecified abdominal pain; E87.6 Hypokalemia
CPT/HCPCS: 80053; 86850; 86900; 86901; 96365; 96375; 99285; 74177; 83735; 85025; 99284; J0131; J2405; J3490

== ENCOUNTER 2022-09-29 21:11 | Emergency (ER) | payer MEDICAID, SELFPAY ==
[2022-09-29 21:16] VITALS: BP 136/77; PULSE 85; RESP 20; TEMP 37; O2SAT 98
--- NOTE | 2022-09-29 21:50 | W.ED.GENAD ---
Discharge Plan Disposition Patient Disposition: Home Condition: Improving Discharge Details Clinical Impression: IBS (irritable bowel syndrome) Primary Care Provider: BELTRAN JHAVERI ED Provider: Theo Mojica Home Meds and New Rx's Prescriptions: New dicyclomine 10 mg capsule 10 mg PO BID Qty: 30 0RF Continued docusate sodium 100 mg capsule 100 mg PO DAILY esomeprazole magnesium 40 mg capsule,delayed release(DR/EC) 40 mg PO DAILY fluticasone propion-salmeterol [Advair Diskus] 100-50 mcg/dose blister with device 2 inh inhalation BID Rx Instructions: pt reported - dose unverified. albuterol sulfate 90 mcg/actuation HFA aerosol inhaler 2 puff IH Q6H PRN (Reason: shortness of breath or wheezing) Qty: 18 6RF ibuprofen [IBU-200] 200 mg tablet 600 mg PO Q6H PRN (Reason: pain) Qty: 90 2RF Rx Instructions: take w/ carafate. do not take on an empty stomach trazodone 50 mg tablet 2 tab PO DAILY Patient Comments: TAKE 1 TO 2 TABLETS BY MOUTH AT BEDTIME lithium carbonate 300 mg tablet extended release 1 tab PO DAILY Patient Comments: TAKE 1 TABLET BY MOUTH IN THE EVENING cholecalciferol (vitamin D3) [Vitamin D3] 50 mcg (2,000 unit) capsule 20,000 unit PO DAILY Patient Comments: TAKE 1 CAPSULE BY MOUTH ONCE DAILY Spiriva Respimat 1.25 mcg/actuation mist 2 spray INHALATION BID Patient Comments: INHALE 2 SPRAY(S) BY MOUTH IN THE MORNING cetirizine 10 mg tablet 10 mg DAILY famotidine 20 mg tablet 20 mg PO BID cholecalciferol (vitamin D3) 50 mcg (2,000 unit) capsule 50 mcg PO DAILY Patient Comments: TAKE TWO CAPSULES BY MOUTH EVERY DAY Linzess 290 mcg capsule 290 mcg PO DAILY meclizine 25 mg tablet 12.5 mg PO TID PRN (Reason: dizziness) bupropion HCl 300 mg tablet extended release 24 hr 150 mg PO DAILY escitalopram oxalate 20 mg tablet 20 mg PO DAILY AM Patient Comments: TAKE 1 TABLET BY MOUTH ONCE DAILY midodrine 2.5 mg tablet 2 tab PO TID Patient Comments: TAKE 2 TABLETS BY MOUTH THREE TIMES DAILY potassium chloride 20 mEq tablet extended release 20 tab PO DAILY AM Patient Comments: TAKE 1 TABLET BY MOUTH ONCE DAILY metformin 500 mg tablet See Rx Instructions PO BID Rx Instructions: 1,000mg Qam , 500mg Qpm ondansetron 4 mg tablet,disintegrating 4 mg PO Q8H PRN (Reason: nausea and vomiting) Qty: 30 0RF Discharge Instructions Instructions: Irritable Bowel Syndrome (ED) Discharge Data Discharge Date/Time-TO BE ENTERED AT DEPARTURE: 09/30/22 01:20 Discharge Physician: Theo Mojica Medical Decision Making <HOLLY Abdul - Last Filed: 09/30/22 22:52> Patient is a pleasant 47-year-old female with past medical history significant for type 2 diabetes, GERD, presenting today for continued pain in her abdomen that is fairly diffuse but active on the left side as well as dark stools. Patient was seen here on 09/02/22 at which time CAT scan and labs are unremarkable. Patient was advised to follow-up with primary care. She reports that she has followed up with PCP she is being referred to a GI specialist that she has been in the past. STates they have been working on her GERD medications as well. She is been taking Tylenol. She has been abstaining from NSAIDS with hx of GI bleed. States that pain can radiate into the back, again, primarily along the left side. Surgical hx pertinent for cholecystectomy, hysterecomy. No vaginal d/c, no change in urinary output. No easy bruising. On exam, patient appears nontoxic. Appears anxious. Lungs clear, normal cardiac exam. With distraction, no abdominal pain with deep palpation. However, she is palpating her own abdomen and reports pain in LLQ and flank. No CVA pain, back pain is more inferior. No peritoneal findings. Rectal exam without abnormality. Light brown stool, negative for blood. Concerned for recurrent chronic abdominal pain. Considered diverticulitis but as this has not changed much since her last CT, less likely. Considered pancreatitis, GI bleed, GERD, ulcer, UTI vs. other. Will obtain labs first. As she has had CT recently, and has had several in the past, will hold off. Patient given Toradol and Protonix. Labs reassuring. Will replenish K. Creatinine at baseline. UA with RBC, considered stone and will obtain renal CT. Discussed with patient, she is in agreement with this plan, appears much more comfortable. At the end of my shift, care transitioned to Dr. Reyes with imaging and reassessment pending. Received signout from 47-year-old female with lower abdominal pain pending CT scan of the abdomen and pelvis <Theo Mojica MD - Last Filed: 09/30/22 01:08> Received signout from 47-year-old female with lower abdominal pain pending CT scan of the abdomen and pelvis Patient is a pleasant 47-year-old female with past medical history significant for type 2 diabetes, GERD, presenting today for continued pain in her abdomen that is fairly diffuse but active on the left side as well as dark stools. Patient was seen here on 09/02/22 at which time CAT scan and labs are unremarkable. Patient was advised to follow-up with primary care. She reports that she has followed up with PCP she is being referred to a GI specialist that she has been in the past. STates they have been working on her GERD medications as well. She is been taking Tylenol. She has been abstaining from NSAIDS with hx of GI bleed. States that pain can radiate into the back, again, primarily along the left side. Surgical hx pertinent for cholecystectomy, hysterecomy. No vaginal d/c, no change in urinary output. No easy bruising. On exam, patient appears nontoxic. Appears anxious. Lungs clear, normal cardiac exam. With distraction, no abdominal pain with deep palpation. However, she is palpating her own abdomen and reports pain in LLQ and flank. No CVA pain, back pain is more inferior. No peritoneal findings. Rectal exam without abnormality. Light brown stool, negative for blood. Concerned for recurrent chronic abdominal pain. Considered diverticulitis but as this has not changed much since her last CT, less likely. Considered pancreatitis, GI bleed, GERD, ulcer, UTI vs. other. Will obtain labs first. As she has had CT recently, and has had several in the past, will hold off. Patient given Toradol and Protonix. Labs reassuring. Will replenish K. Creatinine at baseline. UA with RBC, considered stone and will obtain renal CT. Discussed with patient, she is in agreement with this plan, appears much more comfortable. At the end of my shift, care transitioned to Dr. Reyes with imaging and reassessment pending. Differential Diagnosis Differential Diagnosis: 1. GI bleed 2. Acute diverticulitis 3. Renal stone Medical Records Medical records reviewed: Yes I reviewed the patient's medical records. Imaging Data Radiologic Study: Attestation: I personally reviewed and interpreted this imaging study as follows: Imaging: CT Scan My impression: No visible acute abnormality as interpreted by me Radiologist's impression: CT scan does not show any acute abnormality as read by the radiologist Lab Data Lab results reviewed: Yes I reviewed the patient's lab results. HPI <HOLLY Abdul - Last Filed: 09/30/22 22:52> General Date/Time Provider Initiated Documentation: 09/29/22 21:50. Limitations to Documentation: no limitations. Information obtained by: patient, RN notes reviewed and old records reviewed. History of Present Illness 47 year old F presents to the emergency department with the chief complaint of abdominal pain, dark stools, described as severe and similar to prior episodes, with intensity rated at 8. Quality is described as aching, and is localized to the abdomen. Patient reports radiation to back (left side of the back). Patient started experiencing this unknown (has chronic abdominal pain that waxes/wanes, unclear when this started) and it has been constant. No relieving factors improve symptom(s), No exacerbating factors reported . Patient notes loss of appetite; denies chest pain, cough, fever/chills, headaches, malaise, nausea/vomiting and shortness of breath. Patient did receive the following treatments prior to arrival, other (APAP) Related Data Home Medications Medication Instructions Recorded Confirmed ibuprofen 200 mg tablet (IBU-200) 600 mg PO Q6H PRN pain #90 tabs 03/31/19 09/13/22 albuterol sulfate 90 mcg/actuation 2 puff inhalation Q6H PRN 10/15/19 09/13/22 aerosol inhaler shortness of breath or wheezing #18 grams cetirizine 10 mg tablet 10 mg DAILY 02/14/21 09/13/22 cholecalciferol (vitamin D3) 50 50 mcg PO DAILY 02/14/21 09/13/22 mcg (2,000 unit) capsule famotidine 20 mg tablet 20 mg PO BID 02/14/21 09/13/22 linaclotide 290 mcg capsule 290 mcg PO DAILY 02/14/21 09/13/22 (Linzess) meclizine 25 mg tablet 12.5 mg PO TID PRN dizziness 02/14/21 09/13/22 escitalopram oxalate 20 mg tablet 20 mg PO DAILY AM 11/12/21 09/13/22 midodrine 2.5 mg tablet 2 tab PO TID 11/12/21 09/13/22 potassium chloride 20 mEq 20 tab PO DAILY AM 11/12/21 09/13/22 tablet,extended release cholecalciferol (vitamin D3) 50 20,000 unit PO DAILY 03/19/22 09/13/22 mcg (2,000 unit) capsule (Vitamin D3) lithium carbonate 300 mg 1 tab PO DAILY 03/19/22 09/13/22 tablet,extended release tiotropium bromide 1.25 2 spray inhalation BID 03/19/22 09/13/22 mcg/actuation mist for inhalation (Spiriva Respimat) trazodone 50 mg tablet 2 tab PO DAILY 03/19/22 09/13/22 ondansetron 4 mg disintegrating 4 mg PO Q8H PRN nausea and 06/15/22 09/13/22 tablet vomiting #30 tabs bupropion HCl 300 mg 24 hr tablet, 150 mg PO DAILY 09/13/22 09/13/22 extended release docusate sodium 100 mg capsule 100 mg PO DAILY 09/13/22 09/13/22 esomeprazole magnesium 40 mg 40 mg PO DAILY 09/13/22 09/13/22 capsule,delayed release fluticasone 100 mcg-salmeterol 50 2 inh inhalation BID 09/13/22 09/13/22 mcg/dose blistr powdr for inhalation (Advair Diskus) metformin 500 mg tablet See Rx Instructions PO BID 09/13/22 09/13/22 dicyclomine 10 mg capsule 10 mg PO BID #30 caps 09/30/22 Previous Rx's Medication Instructions Recorded ibuprofen 200 mg tablet (IBU-200) 600 mg PO Q6H PRN pain #90 tabs 03/31/19 albuterol sulfate 90 mcg/actuation 2 puff inhalation Q6H PRN 10/15/19 aerosol inhaler shortness of breath or wheezing #18 grams ondansetron 4 mg disintegrating 4 mg PO Q8H PRN nausea and 06/15/22 tablet vomiting #30 tabs dicyclomine 10 mg capsule 10 mg PO BID #30 caps 09/30/22 Allergies Allergy/AdvReac Type Severity Reaction Status Date / Time venom-honey bee Allergy Severe Verified 09/13/22 10:26 Sulfa (Sulfonamide Allergy HIVES Verified 09/13/22 10:26 Antibiotics) General Stated Complaint: Abd Prob MIKE: 3 Review of Systems <HOLLY Abdul - Last Filed: 09/30/22 22:52> Constitutional Constitutional: Reports as per HPI, Denies fatigue, Denies fever(s) and Denies headache(s) ENT Ears, Nose, Mouth, and Throat: Denies headache(s) Cardiovascular Cardiovascular: Reports as per HPI, Denies chest pain and Denies dyspnea Respiratory Respiratory: Reports as per HPI, Denies cough and Denies dyspnea Gastrointestinal Gastrointestinal: Reports as per HPI Musculoskeletal Musculoskeletal: Reports as per HPI Integumentary/Breasts Skin/Breast: Reports as per HPI and Denies rash Neurologic Neurologic: Reports as per HPI and Denies headache(s) Endocrine Endocrine: Denies fatigue PFSH <HOLLY Abdul - Last Filed: 09/30/22 22:52> All Active Problems (Updated 09/30/22 @ 01:05 by Theo Mojica MD) IBS (irritable bowel syndrome) (Chronic) Nail dystrophy (Acute) Type 2 diabetes mellitus (Acute) Shortness of breath (Acute) Diarrhea (Acute) Atypical chest pain (Acute) Muscle pain (Acute) Calculus of gallbladder with chronic cholecystitis without obstruction (Acute) Gallstones without obstruction of gallbladder (Acute) GERD (gastroesophageal reflux disease) (Chronic) Nausea and vomiting in adult (Acute) Right lower quadrant abdominal pain (Acute) Hypomagnesemia (Acute) Syncope (Chronic) Dehydration (Acute) Near syncope (Acute) Bradycardia (Acute) Dizziness (Acute) Nonspecific paroxysmal spell (Acute) DVT prophylaxis (Acute) Discharge planning issues (Acute) Pre-syncope (Acute) Abnormal CT of the abdomen (Acute) N&V (nausea and vomiting) (Acute) RLQ abdominal tenderness (Acute) Vertigo (Acute) Gastroesophageal reflux disease (Chronic) Asthma (Chronic) Depression (Chronic) Takes Fluoxetine 20mg QD with good impact on her depression, denies any SI. Encouraged to continue. to try to tame a hoiurde. Medical History Acne (04/21/13) Back pain Taking prednisone 60mg QD for 4 days. Currently on day 2. Not feeling it is making much of a difference but she was encouraged to take for the full 4 days. Also suggested she take the muscle relaxer only PRN as it makes her quite drowsy. Encouraged to take at night. To help with rest. Other valenzuela, suggested she increse Aleve to AM & PM dose, then supplement with 1000mg Acetaminophen every 4-6 hours up to a total of 4000mg/day. Suggested ice might help more than heat but either should be limited to only 20 minutes at a time. Use topicals (Solopas Gel or Aspercreame with Lidocaine seem to be quite helpful. Try to avoid sitting or standing still for prolonged periods of time. Walking on flat ground is encourage. Gestational diabetes mellitus High ankle sprain of right lower extremity Tobacco use (10/15/14) quit 01/2016 Surgical History ANAL SURGERY surgical drainage of anal fissure Dilation and curettage X 2 with losses discectomy (~2003) Endometrial Ablation (~2009) History of bilateral ligation of fallopian tubes History of cholecystectomy (~03/2019) History of discectomy History of esophagogastroduodenoscopy (EGD) (~01/2019) History of hysterectomy Ligation of fallopian tube S/P endometrial ablation irregular bleeding has restarted, neg EM bx 01/2016 Status post dilation and curettage Family History Mother Hyperlipidemia Thyroid disorder Father Essential hypertension Diabetes Personal history of malignant neoplasm prostate Heart disease Hyperlipidemia Myocardial infarction Social History Smoking/Tobacco Use Status: Current every day Tobacco Type: cigarettes and e-cigarettes Tobacco: How many years used: 20 Smoking risk assessment performed?: Yes Alcohol Intake: never Drug use: Never Substance use type: does not use Household members: family and other Details: Lives with demented mother and her brother current occupation: [employer] [place]; [employer]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 Exam <OHLLY Abdul - Last Filed: 09/30/22 22:52> Const General: cooperative, healthy appearing, comfortable, no acute distress and well developed Nutritional Appearance: well nourished and overweight Orientation: alert and awake [facility] Head: normal to inspection Mouth: moist mucous membranes Resp Effort & Inspection: normal respiratory effort, able to speak in complete sentences and no respiratory distress Auscultation: clear to auscultation bilaterally, no rales, no rhonchi and no wheezes Cardio Rate: regular rate Rhythm: regular rhythm Heart Sounds: S1 normal and S2 normal GI Inspection: normal to inspection and obesity Palpation: soft, no hepatosplenomegaly, not rigid and tender (with distraction, no pain. without, left mid abdominal pain) not at McBurney's point, Zamora's sign negative, psoas sign negative and with no rebound tenderness Percussion: normal to percussion Auscultation: normal bowel sounds Back/Spine/Pelvis Back: no CVA tenderness (pain lower on left side between CVA and SI joint) Thoracic/Lumbar Spine: No thoracic spinal tenderness and No lumbar spinal tenderness Skin General skin exam: no rashes or lesions noted Trauma: no lacerations or abrasions Neuro General: patient alert and patient awake Cognition: normal cognition Speech: speech normal Gait: normal gait Psych Appearance: grossly normal and well kempt Mental Status: mental status grossly normal Speech and Movement: speech and movement normal Course <HOLLY Abdul - Last Filed: 09/30/22 22:52> Vital Signs Vital signs: Vital Signs Temperature 37 C 09/29/22 21:16 Pulse 85 09/29/22 21:16 Respiratory Rate 20 09/29/22 21:16 Blood Pressure 136/77 09/29/22 21:16 Pulse Oximetry 98 09/29/22 21:16 Temperature 37 C 09/29/22 21:16 Temperature Source Temporal Artery Scan 09/29/22 21:16 Pulse 85 09/29/22 21:16 Respiratory Rate 20 09/29/22 21:16 Respiratory Effort Normal 09/29/22 21:18 Blood Pressure 136/77 09/29/22 21:16 Pulse Oximetry 98 09/29/22 21:16 Pain Level 8 09/29/22 21:16 Sign Out <HOLLY Abdul - Last Filed: 09/30/22 22:52> Sign Out Data: Sign Out Comment: care transitioned to Dr. Reyes with renal CT and reassessment pending. Last updated by Ronit Easton PA at 09/29/22 23:56
[2022-09-29 22:18] LABS: Abs Immature Grans 0.04 10^3/uL (0.0-0.06); Absolute Basophil Count 0.05 10^3/uL (0.0-0.2); Absolute Eosinophil Count 0.57 10^3/uL (0.0-0.7); Absolute Lymphocyte Count 2.47 10^3/uL (1.2-3.4); Absolute Neutrophil Count 8.01 10^3/uL (1.2-6.7); Basophils % 0.4; Eosinophils % 4.8; HGB 13.3 g/dL (11.2-15.7); Immature Grans % 0.3; Lymphocytes % 20.9; MCH 28.6 pg (27.0-33.0); MCHC 33.3 % (32.0-36.0); MCV 86 fL (80-95); MPV 11.6 fL (8.0-11.0); Monocytes % 5.8; Neutrophils % 67.8; Platelet Count 281 10^3/uL (130-400); RBC 4.65 10^6/uL (3.93-5.22); RDW 12.9 % (11.7-14.6); RDW-SD 40.1 fL; WBC 11.82 10^3/uL (4.4-10.8)
[2022-09-29 22:19] LABS: Absolute Monocyte Count 0.69 10^3/uL (0.1-0.8)
[2022-09-29 22:21] LABS: Bilirubin Negative (Negative); Blood Trace-intact (Negative); Clarity Clear (Clear); Glucose Negative (Negative); Ketones Negative (Negative); Leukocyte Esterase Negative (Negative); Nitrite Negative (Negative); Urobilinogen 0.2 mg/dL (Up to 0.2); pH 5.5 (5-8)
[2022-09-29 22:23] LABS: Bacteria Rare HPF (Negative); C & S Indicated? No; Casts Negative LPF (Negative); Crystals Negative HPF (Negative); Epithelial Cells Rare HPF (Negative); Mucus Negative (Negative); RBC 0-2 HPF (0-2); WBC Negative HPF (0-5)
[2022-09-29 22:38] LABS: ALT 20 U/L (14-59); AST 23 U/L (15-37); Albumin 3.6 g/dL (3.4-5.0); Alkaline Phosphatase 110 U/L (46-116); Anion Gap 10.8 mmol/L (3-11); BUN 6 mg/dL (7-18); Bilirubin, Total 0.2 mg/dL (0.2-1.0); CO2 26.2 mmol/L (21.0-32.0); CREATININE 1.1 mg/dL (0.55-1.02); Calcium 8.8 mg/dL (8.5-10.1); Chloride 102 mmol/L (98-107); Estimated GFR 61.98 (mL/min/1.73m2); Glucose 173 mg/dL (74-106); Lipase 73 U/L (16-77); Magnesium 1.9 mg/dL (1.8-2.4); Sodium 139 mmol/L (136-145); Total Protein 7.3 g/dL (6.4-8.2)
[2022-09-29] MEDS: Pantoprazole 40 MG VIAL IVP (22:50)
[2022-09-29] MEDS: Ketorolac 15 MG/ML VIAL IVP (22:50)
--- NOTE | 2022-09-29 23:00 | DI.CT_ITS ---
Exam(s) CT RENAL COLIC WO EXAM: CT RENAL COLIC WO CLINICAL HISTORY: left sided pain, hematuria. TECHNIQUE: Imaging Protocol: Axial computed tomography images with coronal and sagittal reformatted images were created and reviewed. COMPARISON: CT CT ABDOMEN PELVIS W from 01/23/[address] ABDOMEN PELVIS W from 09/02/2022 FINDINGS: ABDOMEN: Lung Bases: Normal where visualized. Liver: Normal density. No measurable mass. Gallbladder and biliary tract: Status post cholecystectomy. No significant biliary ductal dilatation . Pancreas: Normal density, no abnormal calcifications or inflammatory process. Spleen: Normal. Kidneys: Normal size, contour and axis.No radiodense stones or obstructive uropathy. There is a cyst again seen in the lower pole of the right kidney. No follow-up is recommended. Adrenal glands: No mass is seen. Lymph nodes: Within normal limits. Abdominal Aorta: Abdominal portion non-dilated. PELVIS: Bladder:Symmetric distention, no gross wall thickening. Bowel: No obstruction or bowel wall thickening. Appendix is unremarkable. Peritoneal cavity: No ascites, collection or mesenteric inflammatory response. No free air. 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 Reproductive organs: Status post hysterectomy. Bones: Within normal limits. Soft Tissues: Uncomplicated inguinal hernia. IMPRESSION: No acute abdominal or pelvic process. RADIATION DOSE DELIVERED: 875.67mGy.cm Total DLP DATA REPOSITORY: All CT scans at this facility are submitted to the National Radiology Data Registry (NRDR) Dose Index Registry (DIR) with the [employer] (ACR). RADIATION OPTIMIZATION: All CT scans at this facility use at least one of these dose optimization te chniques: automated exposure control; mA and/or kV adjustment per patient size (includes targeted exa ms where dose is matched to clinical indication); or iterative reconstruction.
[2022-09-29] MEDS: Lactated Ringers 1,000 ML 1000 ML IV (23:03)
[2022-09-29] MEDS: Potassium Chloride 20 MEQ TABCR 40 MEQ PO (23:40)
[2022-09-29] MEDS: POTASSIUM CHLORIDE 10 MEQ/100 ML BAG 100 MEQ IVPB (23:40)
[2022-09-30] MEDS: Acetaminophen 500 MG TAB 1000 MG PO (00:53)
--- NOTE | 2022-09-30 00:56 | DI.VRAD_ITS ---
PROCEDURE INFORMATION: Exam: CT Abdomen And Pelvis Without Contrast Exam date and time: 09/30/2022 12:07 AM Age: 47 years old Clinical indication: Abdominal pain; Flank; Left; Prior surgery; Surgery date: 6+ months; Surgery type: Hysterectomy, gallbladder removed; Additional info: Left sided pain, hematuria TECHNIQUE: Imaging protocol: Computed tomography of the abdomen and pelvis without contrast. Radiation optimization: All CT scans at this facility use at least one of these dose optimization techniques: automated exposure control; mA and/or kV adjustment per patient size (includes targeted exams where dose is matched to clinical indication); or iterative reconstruction. COMPARISON: CT ABDOMEN PELVIS W 09/02/2022 7:11 PM FINDINGS: Liver: Normal. No mass. Gallbladder and bile ducts: Gallbladder surgically absent. Pancreas: Normal. No ductal dilation. Spleen: Normal. No splenomegaly. Adrenal glands: Normal. No mass. Kidneys and ureters: Stable 3.2 cm cyst right kidney. No hydronephrosis. No ureteral stones. Stomach and bowel: Unremarkable. No obstruction. No mucosal thickening. Appendix: No evidence of appendicitis. Intraperitoneal space: Unremarkable. No free air. No significant fluid collection. 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 Vasculature: Unremarkable. No abdominal aortic aneurysm. Lymph nodes: Unremarkable. No enlarged lymph nodes. Urinary bladder: Unremarkable as visualized. Reproductive: Previous hysterectomy. Bones/joints: Unremarkable. No acute fracture. Soft tissues: Bilateral fat containing inguinal hernias without incarceration. IMPRESSION: No acute abnormality identified. Dictated and Authenticated by: Kobe Rodriguez MD. Ordering:JAQUAN Cottrell MD
[2022-09-30 01:20] VITALS: BP 101/74; PULSE 68; RESP 16; TEMP 36.2; O2SAT 97
== END 2022-09-30 01:20 | disposition home or self-care (01) ==
PROVIDERS: Physician Assistant; Emergency Provider Emergency Medicine Emergency Medical Services; PCP Nurse Practitioner Family
DX: K58.9 Irritable bowel syndrome, unspecified (principal)
CPT/HCPCS: 36415; 80053; 83690; 96365; 96375; 99284; 74176; 81003; 81015; 83735; 85025; J1885; J3480

== ENCOUNTER 2022-11-05 01:33 | Emergency (ER) | payer MEDICAID, SELFPAY ==
[2022-11-05] VITALS (14 sets, daily range): BP systolic 103–128; BP diastolic 59–80; PULSE 86–99; RESP 15–23; TEMP 37.1; O2SAT 93–96
--- NOTE | 2022-11-05 01:30 | RT.EKG_ITS ---
APPROVED REPORT Exam: Resting ECG Reason for Exam: Syncope Patient Location: E HR:91 bpm ECG Measurements Heart Rate 91 AXIS SD 165 P 36 QRSd 82 QRS 2 QT 394 T 26 QTc 485 Conclusion Sinus rhythm...normal P axis, V-rate 60- 99 Low voltage, precordial leads...precordial leads <1.0mV Narrow complex normal sinus rhythm at a rate of 91. Left axis deviation no signs of LVH based on vol tage criteria. Poor R wave progression. Low voltage. Appears similar to prior dated last year. No ST segment abnormalities. No acute injury pattern.
--- NOTE | 2022-11-05 01:39 | ED.GENADUL_ITS ---
Discharge Plan Disposition Patient Disposition: Home Discharge Details Clinical Impression: Syncope and collapse, Acute hypokalemia, Alcohol use with intoxication with complication, Serum lithium level below therapeutic range, Sternal pain Primary Care Provider: BELTRAN JHAVERI ED Provider: Valdez Song [place] Meds and New Rx's Prescriptions: Continued docusate sodium 100 mg capsule 100 mg PO DAILY esomeprazole magnesium 40 mg capsule,delayed release(DR/EC) 40 mg PO DAILY fluticasone propion-salmeterol [Advair Diskus] 100-50 mcg/dose blister with device 2 inh inhalation BID Rx Instructions: pt reported - dose unverified. albuterol sulfate 90 mcg/actuation HFA aerosol inhaler 2 puff IH Q6H PRN (Reason: shortness of breath or wheezing) Qty: 18 6RF ibuprofen [IBU-200] 200 mg tablet 600 mg PO Q6H PRN (Reason: pain) Qty: 90 2RF Rx Instructions: take w/ carafate. do not take on an empty stomach lithium carbonate 300 mg tablet extended release 1 tab PO DAILY Patient Comments: TAKE 1 TABLET BY MOUTH IN THE EVENING Spiriva Respimat 1.25 mcg/actuation mist 2 spray INHALATION BID Patient Comments: INHALE 2 SPRAY(S) BY MOUTH IN THE MORNING cetirizine 10 mg tablet 10 mg DAILY famotidine 20 mg tablet 20 mg PO BID cholecalciferol (vitamin D3) 50 mcg (2,000 unit) capsule 50 mcg PO DAILY Patient Comments: TAKE TWO CAPSULES BY MOUTH EVERY DAY Linzess 290 mcg capsule 290 mcg PO DAILY meclizine 25 mg tablet 12.5 mg PO TID PRN (Reason: dizziness) bupropion HCl 300 mg tablet extended release 24 hr 150 mg PO DAILY escitalopram oxalate 20 mg tablet 20 mg PO DAILY AM Patient Comments: TAKE 1 TABLET BY MOUTH ONCE DAILY midodrine 2.5 mg tablet 2 tab PO TID Patient Comments: TAKE 2 TABLETS BY MOUTH THREE TIMES DAILY potassium chloride 20 mEq tablet extended release 20 tab PO DAILY AM Patient Comments: TAKE 1 TABLET BY MOUTH ONCE DAILY metformin 500 mg tablet See Rx Instructions PO BID Rx Instructions: 1,000mg Qam , 500mg Qpm ondansetron 4 mg tablet,disintegrating 4 mg PO Q8H PRN (Reason: nausea and vomiting) Qty: 30 0RF dicyclomine 10 mg capsule 10 mg PO BID Qty: 30 0RF Discharge Instructions Instructions: Hypokalemia (ED) Additional Instructions: Please read all of the information that accompanies these instructions. You were seen in the emergency department for your chest pain. Your blood work showed no sign of heart attack. You did have a low lithium level. Please take your lithium as prescribed. You were also found to have a low potassium level. You are on outpatient potassium supplementation. Please take this as prescribed. Please schedule an appointment with your primary care provider later next week. Your pacemaker was interrogated and showed no signs of any dangerous rhythms. Please return to the emergency department if recurrent episode of passing out or if you have chest pain. For your pain please take medications as follows: 1. Take acetaminophen (Tylenol), 1,000 mg (two 500 mg tabs) every 6 hours Discharge Data Discharge Date/Time-TO BE ENTERED AT DEPARTURE: 11/05/22 06:10 Medical Decision Making This is an overall very well-appearing normothermic and not tachycardic diabetic with syncopal episode that occurred following indiscretion with ethanol. She has had no black or bloody stools to suggest acute blood loss anemia. She does have a pacemaker so we will interrogate her [employer] pacer. She does have risk factors for coronary artery disease as she has had 2 stents in the past however her chest pain occurred after sternal rubbing and not before sternal rubbing so my suspicion is lower for ACS as she has no radiating quality to her pain nor any diaphoresis to her pain. Furthermore her pain is reproducible on physical exam. Nonetheless we will obtain 2 sets of troponin. I considered PE however the patient is PERC negative so I did not send a D-dimer. She has not been vomiting to suggest increased risk for esophageal rupture. She has no rash to her chest to suggest zoster. No pain out of proportion to suggest necrotizing soft tissue infection. She is not a routine drinker so my suspicion is low for ethanol withdrawal. She had a normal fingerstick blood glucose. Will observe the patient in the ED interrogate her pacer and reassess following labs and two- view chest x-ray. She has not had a cough nor she hypoxic so my suspicion is low for pneumonia. She does have low voltage but also has an elevated BMI and her low voltage is similar to prior so my suspicion is low for pericardial tamponade. Furthermore she is not hypotensive. No epigastric tenderness to suggest pancreatitis. No right upper quadrant tenderness to suggest acute cholecystitis. 2:50 AM [employer] called and patient had no significant events on interrogation of her pacemaker. Patient was mildly hypokalemic for which she will receive oral and IV repletion. Her potassium was 2.7 but her QTc is within normal limits. We will repeat it potassium with her repeat troponin. She is not on any diuretics to suggest increased risk for ongoing hypokalemia. It does appear that patient is on outpatient potassium supplementation and has previously had mild hypokalemia. 4:06 AM Reassuring negative troponin. Elevated ethanol level consistent with intoxication. No hypoglycemia. No YESSI. No anion gap. Not consistent with DKA. Reassuring negative chest x-ray. Mildly elevated lipase less than 3 times upper limit of normal but not consistent with pancreatitis. Subtherapeutic lithium level. CBC with no anemia thrombocytopenia nor leukocytosis. Negative hCG. 5:37 AM Repeat negative. Will discharge if potassium has risen. 5:56 AM Patient's potassium improved in the ED. I encouraged her to continue taking her home oral potassium supplementation. I advised her about her subtherapeutic lithium level. I gave her acetaminophen for her pain and advised her the same at home. HPI General Date/Time Provider Initiated Documentation: 11/05/22 01:39 . HPI Narrative: This is a 47-year-old female with a history of diabetes and coronary artery disease status post stent and pacemaker arriving via paramedics following episode of unresponsiveness that occurred after drinking 4-5 drinks this evening. Patient reports she does not drink every day. She was drinking at a [employer]. Paramedics arrived and found her minimally responsive. She was given a sternal rub and became responsive. She reported that she fell but she did not strike her head. She denies any pain beyond pain in her chest. She endorses a central chest pain that is sharp and nonradiating. Her chest pain did not occur before her sternal rub. She reports she is a daily smoker but only occasionally drinks ethanol. She denies IV drug use. She denies dysuria and frequency. She has had no fevers nor cough. No shortness of breath. Related Data Home Medications Medication Instructions Recorded Confirmed ibuprofen 200 mg tablet (IBU-200) 600 mg PO Q6H PRN pain #90 tabs 03/31/19 11/05/22 albuterol sulfate 90 mcg/actuation 2 puff inhalation Q6H PRN 10/15/19 11/05/22 aerosol inhaler shortness of breath or wheezing #18 grams cetirizine 10 mg tablet 10 mg DAILY 02/14/21 11/05/22 cholecalciferol (vitamin D3) 50 50 mcg PO DAILY 02/14/21 11/05/22 mcg (2,000 unit) capsule famotidine 20 mg tablet 20 mg PO BID 02/14/21 11/05/22 linaclotide 290 mcg capsule 290 mcg PO DAILY 02/14/21 11/05/22 (Linzess) meclizine 25 mg tablet 12.5 mg PO TID PRN dizziness 02/14/21 11/05/22 escitalopram oxalate 20 mg tablet 20 mg PO DAILY AM 11/12/21 11/05/22 midodrine 2.5 mg tablet 2 tab PO TID 11/12/21 11/05/22 potassium chloride 20 mEq 20 tab PO DAILY AM 11/12/21 11/05/22 tablet,extended release lithium carbonate 300 mg 1 tab PO DAILY 03/19/22 11/05/22 tablet,extended release tiotropium bromide 1.25 2 spray inhalation BID 03/19/22 11/05/22 mcg/actuation mist for inhalation (Spiriva Respimat) ondansetron 4 mg disintegrating 4 mg PO Q8H PRN nausea and 06/15/22 11/05/22 tablet vomiting #30 tabs bupropion HCl 300 mg 24 hr tablet, 150 mg PO DAILY 09/13/22 11/05/22 extended release docusate sodium 100 mg capsule 100 mg PO DAILY 09/13/22 11/05/22 esomeprazole magnesium 40 mg 40 mg PO DAILY 09/13/22 11/05/22 capsule,delayed release fluticasone 100 mcg-salmeterol 50 2 inh inhalation BID 09/13/22 11/05/22 mcg/dose blistr powdr for inhalation (Advair Diskus) metformin 500 mg tablet See Rx Instructions PO BID 09/13/22 11/05/22 dicyclomine 10 mg capsule 10 mg PO BID #30 caps 09/30/22 11/05/22 Previous Rx's Medication Instructions Recorded ibuprofen 200 mg tablet (IBU-200) 600 mg PO Q6H PRN pain #90 tabs 03/31/19 albuterol sulfate 90 mcg/actuation 2 puff inhalation Q6H PRN 10/15/19 aerosol inhaler shortness of breath or wheezing #18 grams ondansetron 4 mg disintegrating 4 mg PO Q8H PRN nausea and 06/15/22 tablet vomiting #30 tabs dicyclomine 10 mg capsule 10 mg PO BID #30 caps 09/30/22 Allergies Allergy/AdvReac Type Severity Reaction Status Date / Time venom-honey bee Allergy Severe Verified 11/05/22 01:32 Sulfa (Sulfonamide Allergy HIVES Verified 11/05/22 01:32 Antibiotics) General MIKE: 3 PFSH All Active Problems (Updated 11/05/22 @ 04:38 by Valdez Snog MD) Depression (Chronic) Takes Fluoxetine 20mg QD with good impact on her depression, denies any SI. Encouraged to continue. to try to tame a hoiurde. Asthma (Chronic) Gastroesophageal reflux disease (Chronic) Right lower quadrant abdominal pain (Acute) Hypomagnesemia (Acute) Syncope (Chronic) Dehydration (Acute) Near syncope (Acute) Bradycardia (Acute) Vertigo (Acute) Dizziness (Acute) Nonspecific paroxysmal spell (Acute) DVT prophylaxis (Acute) Discharge planning issues (Acute) Pre-syncope (Acute) RLQ abdominal tenderness (Acute) N&V (nausea and vomiting) (Acute) Abnormal CT of the abdomen (Acute) Nausea and vomiting in adult (Acute) GERD (gastroesophageal reflux disease) (Chronic) Gallstones without obstruction of gallbladder (Acute) Calculus of gallbladder with chronic cholecystitis without obstruction (Acute) Atypical chest pain (Acute) Muscle pain (Acute) Shortness of breath (Acute) Type 2 diabetes mellitus (Acute) Nail dystrophy (Acute) Syncope and collapse (Acute) Acute hypokalemia (Acute) Alcohol use with intoxication with complication (Acute) Serum lithium level below therapeutic range (Acute) Sternal pain (Acute) Medical History Acne (04/21/13) Back pain Taking prednisone 60mg QD for 4 days. Currently on day 2. Not feeling it is making much of a difference but she was encouraged to take for the full 4 days. Also suggested she take the muscle relaxer only PRN as it makes her quite drowsy. Encouraged to take at night. To help with rest. Other valenzuela, suggested she increse Aleve to AM & PM dose, then supplement with 1000mg Acetaminophen every 4-6 hours up to a total of 4000mg/day. Suggested ice might help more than heat but either should be limited to only 20 minutes at a time. Use topicals (Sol[place]as Gel or Aspercreame with Lidocaine seem to be quite helpful. Try to avoid sitting or standing still for prolonged periods of time. Walking on flat ground is encourage. Gestational diabetes mellitus High ankle sprain of right lower extremity Pacemaker Tobacco use (10/15/14) quit 01/2016 Surgical History ANAL SURGERY surgical drainage of anal fissure Dilation and curettage X 2 with losses discectomy (~2003) Endometrial Ablation (~2009) History of bilateral ligation of fallopian tubes History of cholecystectomy (~03/2019) History of discectomy History of esophagogastroduodenoscopy (EGD) (~01/2019) History of hysterectomy Ligation of fallopian tube S/P endometrial ablation irregular bleeding has restarted, neg EM bx 01/2016 Status post dilation and curettage Family History Mother Hyperlipidemia Thyroid disorder Father Essential hypertension Diabetes Personal history of malignant neoplasm prostate Heart disease Hyperlipidemia Myocardial infarction Social History Smoking/Tobacco Use Status: Current every day Tobacco Type: cigarettes and e- cigarettes Tobacco: How many years used: 20 Smoking risk assessment performed?: Yes Alcohol Intake: current Drug use: Never Substance use type: does not use Household members: family and other Details: Lives with demented mother and her brother Housing: apartment current occupation: [employer]; [employer]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 Exam Narrative Exam Narrative: General: Well-appearing in no acute distress speaking in complete sentences. Head: Normocephalic, atraumatic. Eye: Extraocular eye movements intact. No conjunctival injection. No scleral icterus. Ear, nose, mouth, throat: Grossly normal inspection. Normal voice, handling secretions normally. Neck: Trachea midline. Cardiovascular: Well-perfused distal extremities. Regular rate and rhythm. Chest wall: No obvious deformities nor ecchymoses. Reproducible pain on palpation of sternum. No flail segments. Respiratory: Nonlabored respiration. Clear lungs bilaterally. Gastrointestinal: Nondistended abdomen. Soft nontender abdomen. Musculoskeletal: No edema. Moving all 4 extremities spontaneously. Skin: Normal for age and race, grossly normal temperature and turgor. No acute rash. Neurologic: Alert and appropriate, no apparent acute deficits. Psychiatric: Mood and manner are appropriate. Grooming and personal hygiene are appropriate.
--- NOTE | 2022-11-05 01:45 | DI.RAD_ITS ---
Exam(s) XR CHEST 2V PA LATERAL EXAM: XR CHEST 2V PA LATERAL CLINICAL HISTORY: Chest pain TECHNIQUE: 2D digital imaging was performed. COMPARISON: CR,XR XR PORTABLE CHEST AP from 11/12/2021 FINDINGS: HEART: Normal size. Aorta: Not dilated. PULMONARY VASCULATURE: Normal. LUNGS: Clear. PLEURAL SPACE: No pleural effusion or pneumothorax. BONE:Unremarkable for age. IMPRESSION: No acute abnormality. DATA REPOSITORY: RADIATION DOSE DELIVERED:
[2022-11-05 02:23] LABS: Abs Immature Grans 0.05 10^3/uL (0.0-0.06); Absolute Basophil Count 0.05 10^3/uL (0.0-0.2); Absolute Eosinophil Count 0.37 10^3/uL (0.0-0.7); Absolute Lymphocyte Count 2.75 10^3/uL (1.2-3.4); Absolute Neutrophil Count 6.48 10^3/uL (1.2-6.7); Basophils % 0.5; Eosinophils % 3.6; HCT 42.6 % (36.0-46.0); HGB 13.8 g/dL (11.2-15.7); Immature Grans % 0.5; Lymphocytes % 26.7; MCH 27.4 pg (27.0-33.0); MCHC 32.4 % (32.0-36.0); MCV 85 fL (80-95); MPV 10.9 fL (8.0-11.0); Monocytes % 5.8; Neutrophils % 62.9; Platelet Count 314 10^3/uL (130-400); RBC 5.04 10^6/uL (3.93-5.22); RDW 13.4 % (11.7-14.6); RDW-SD 41.5 fL
[2022-11-05 02:45] LABS: BUN 3 mg/dL (7-18); Chloride 102 mmol/L (98-107); ETHANOL BLOOD 123.3 mg/dL (<10); Estimated GFR 69.49 (mL/min/1.73m2); Glucose 239 mg/dL (74-106); Lipase 209 U/L (16-77); Sodium 141 mmol/L (136-145); Troponin I < 50 ng/L (<or=60)
[2022-11-05 02:46] LABS: Potassium 2.7 mmol/L (3.5-5.1)
[2022-11-05 02:47] LABS: Lithium < 0.2 mmol/l (0.6-1.2)
[2022-11-05 02:49] LABS: HCG Qual (Serum) Negative
--- NOTE | 2022-11-05 03:32 | DI.VRAD_ITS ---
PROCEDURE INFORMATION: Exam: XR Chest Exam date and time: 11/05/2022 3:05 AM Age: 47 years old Clinical indication: Other: Cp TECHNIQUE: Imaging protocol: Radiologic exam of the chest. Views: 2 views. COMPARISON: CR XR PORTABLE CHEST AP 11/12/2021 3:17 PM FINDINGS: Lungs: Unremarkable. No consolidation. Pleural spaces: Unremarkable. No pleural effusion. No pneumothorax. Heart/Mediastinum: Unremarkable. No cardiomegaly. Bones/joints: Unremarkable. IMPRESSION: No acute findings. Dictated and Authenticated by: Chadwick Payne MD. Ordering:TONY Kellogg MD
[2022-11-05] MEDS: Potassium Chloride 20 MEQ TABCR 40 MEQ PO (03:38)
[2022-11-05] MEDS: POTASSIUM CHLORIDE 20 MEQ/100 ML BAG 50 MEQ (03:39)
[2022-11-05 05:31] LABS: Troponin I < 50 ng/L (<or=60)
[2022-11-05 05:44] LABS: Potassium 3.2 mmol/L (3.5-5.1)
== END 2022-11-05 06:10 | disposition home or self-care (01) ==
PROVIDERS: Emergency Provider Emergency Medicine; PCP Nurse Practitioner Family
DX: R55 Syncope and collapse (principal); E87.6 Hypokalemia; R78.89 Finding of other specified substances, not normally found in blood; R07.89 Other chest pain; F10.929 Alcohol use, unspecified with intoxication, unspecified
CPT/HCPCS: 80048; 83690; 93005; 99284; 71046; 80178; 80320; 84132; 84484; 84703; 85025; 93010; J3480

== ENCOUNTER 2022-12-29 12:50 | Emergency (ER) | payer MEDICARE, MEDICAID, SELFPAY ==
--- NOTE | 2022-12-29 12:45 | RT.EKG_ITS ---
APPROVED REPORT Exam: Resting ECG Reason for Exam: Dizziness Patient Location: E HR:64 bpm ECG Measurements Heart Rate 64 AXIS MT 160 P 37 QRSd 91 QRS 2 QT 434 T 29 QTc 448 Conclusion Sinus rhythm...normal P axis, V-rate 60- 99 Sinus rhythm. Decreased heart rate from prior 11/05/22. WD
[2022-12-29 13:01] VITALS: BP 123/85; PULSE 73; RESP 16; TEMP 36.6; O2SAT 96
--- NOTE | 2022-12-29 15:01 | ED.GENADUL_ITS ---
Discharge Plan Disposition Patient Disposition: Home Condition: Stable Discharge Details Clinical Impression: Pruritic erythematous rash Primary Care Provider: BELTRAN JHAVERI ED Provider: Gaye Stevenson Home Meds and New Rx's Prescriptions: New prednisone 20 mg tablet 40 mg PO DAILY 5 Days Qty: 10 0RF No Action docusate sodium 100 mg capsule 100 mg PO DAILY esomeprazole magnesium 40 mg capsule,delayed release(DR/EC) 40 mg PO DAILY fluticasone propion-salmeterol [Advair Diskus] 100-50 mcg/dose blister with device 2 inh inhalation BID Rx Instructions: pt reported - dose unverified. albuterol sulfate 90 mcg/actuation HFA aerosol inhaler 2 puff IH Q6H PRN (Reason: shortness of breath or wheezing) Qty: 18 6RF ibuprofen [IBU-200] 200 mg tablet 600 mg PO Q6H PRN (Reason: pain) Qty: 90 2RF Rx Instructions: take w/ carafate. do not take on an empty stomach lithium carbonate 300 mg tablet extended release 1 tab PO DAILY Patient Comments: TAKE 1 TABLET BY MOUTH IN THE EVENING Spiriva Respimat 1.25 mcg/actuation mist 2 spray INHALATION BID Patient Comments: INHALE 2 SPRAY(S) BY MOUTH IN THE MORNING cetirizine 10 mg tablet 10 mg DAILY famotidine 20 mg tablet 20 mg PO BID cholecalciferol (vitamin D3) 50 mcg (2,000 unit) capsule 50 mcg PO DAILY Patient Comments: TAKE TWO CAPSULES BY MOUTH EVERY DAY Linzess 290 mcg capsule 290 mcg PO DAILY meclizine 25 mg tablet 12.5 mg PO TID PRN (Reason: dizziness) bupropion HCl 300 mg tablet extended release 24 hr 150 mg PO DAILY escitalopram oxalate 20 mg tablet 20 mg PO DAILY AM Patient Comments: TAKE 1 TABLET BY MOUTH ONCE DAILY midodrine 2.5 mg tablet 2 tab PO TID Patient Comments: TAKE 2 TABLETS BY MOUTH THREE TIMES DAILY potassium chloride 20 mEq tablet extended release 20 tab PO DAILY AM Patient Comments: TAKE 1 TABLET BY MOUTH ONCE DAILY metformin 500 mg tablet See Rx Instructions PO BID Rx Instructions: 1,000mg Qam , 500mg Qpm ondansetron 4 mg tablet,disintegrating 4 mg PO Q8H PRN (Reason: nausea and vomiting) Qty: 30 0RF dicyclomine 10 mg capsule 10 mg PO BID Qty: 30 0RF Discharge Instructions Instructions: Acute Rash (ED) Additional Instructions: Try not to itch the rash. Apply the hydrocortisone cream daily as needed. Continue to take Benadryl 1-2 tablets every 6-8 hours as needed for itching. Keep it covered so you do not continue to itch it. Follow up with primary care provider in 3-5 days. Return to ED sooner if any worsening or concerns. Increase oral fluids. Referrals: BELTRAN JHAVERI, [employer] [Primary Care Provider] - 3 days Discharge Data Discharge Date/Time-TO BE ENTERED AT DEPARTURE: 12/29/22 15:31 Medical Decision Making 47 year old female presents to the ED with chief complaint of rash to her bi lateral forearms which she has been ongoing for a number of days. She has been placing calamine lotion on her arms with little to no relief. It is pruritic. She also reports it as burning. It is erythemic, excoriations noted to the bilateral forearms with some superficial openings in the skin. She denies any drugs or alcohol. She does take bupropion 300 mg daily, among her other normal medications. Past medical history include type 2 diabetes, GERD, dizziness bradycardia hypokalemia hypomagnesemia asthma and depression. Will give Benadryl, Prednisone and topical Hydrocortisone cream. Patient discharged with follow up care. This text was generated using [employer] system, please disregard any oddities of phrase or misspellings. HPI General Mode of arrival: ambulatory . Date/Time Provider Initiated Documentation: 12/29/22 13:31 . Limitations to Documentation: no limitations . Information obtained by: patient, RN notes reviewed and old records reviewed . HPI Narrative: 47 year old female presents to the ED with chief complaint of rash to her bilateral forearms which she has been ongoing for a number of days. She has been placing calamine lotion on her arms with little to no relief. It is pruritic. She also reports it as burning. It is erythemic, excoriations noted to the bilateral forearms with some superficial openings in the skin. She denies any drugs or alcohol. She does take bupropion 300 mg daily, among her other normal medications. Past medical history include type 2 diabetes, GERD, dizziness bradycardia hypokalemia hypomagnesemia asthma and depression. Related Data Home Medications Medication Instructions Recorded Confirmed ibuprofen 200 mg tablet (IBU-200) 600 mg PO Q6H PRN pain #90 tabs 03/31/19 11/05/22 albuterol sulfate 90 mcg/actuation 2 puff inhalation Q6H PRN 10/15/19 11/05/22 aerosol inhaler shortness of breath or wheezing #18 grams cetirizine 10 mg tablet 10 mg DAILY 02/14/21 11/05/22 cholecalciferol (vitamin D3) 50 50 mcg PO DAILY 02/14/21 11/05/22 mcg (2,000 unit) capsule famotidine 20 mg tablet 20 mg PO BID 02/14/21 11/05/22 linaclotide 290 mcg capsule 290 mcg PO DAILY 02/14/21 11/05/22 (Linzess) meclizine 25 mg tablet 12.5 mg PO TID PRN dizziness 02/14/21 11/05/22 escitalopram oxalate 20 mg tablet 20 mg PO DAILY AM 11/12/21 11/05/22 midodrine 2.5 mg tablet 2 tab PO TID 11/12/21 11/05/22 potassium chloride 20 mEq 20 tab PO DAILY AM 11/12/21 11/05/22 tablet,extended release lithium carbonate 300 mg 1 tab PO DAILY 03/19/22 11/05/22 tablet,extended release tiotropium bromide 1.25 2 spray inhalation BID 03/19/22 11/05/22 mcg/actuation mist for inhalation (Spiriva Respimat) ondansetron 4 mg disintegrating 4 mg PO Q8H PRN nausea and 06/15/22 11/05/22 tablet vomiting #30 tabs bupropion HCl 300 mg 24 hr tablet, 150 mg PO DAILY 09/13/22 11/05/22 extended release docusate sodium 100 mg capsule 100 mg PO DAILY 09/13/22 11/05/22 esomeprazole magnesium 40 mg 40 mg PO DAILY 09/13/22 11/05/22 capsule,delayed release fluticasone 100 mcg-salmeterol 50 2 inh inhalation BID 09/13/22 11/05/22 mcg/dose blistr powdr for inhalation (Advair Diskus) metformin 500 mg tablet See Rx Instructions PO BID 09/13/22 11/05/22 dicyclomine 10 mg capsule 10 mg PO BID #30 caps 09/30/22 11/05/22 prednisone 20 mg tablet 40 mg PO DAILY 5 days #10 tabs 12/29/22 Previous Rx's Medication Instructions Recorded ibuprofen 200 mg tablet (IBU-200) 600 mg PO Q6H PRN pain #90 tabs 03/31/19 albuterol sulfate 90 mcg/actuation 2 puff inhalation Q6H PRN 10/15/19 aerosol inhaler shortness of breath or wheezing #18 grams ondansetron 4 mg disintegrating 4 mg PO Q8H PRN nausea and 06/15/22 tablet vomiting #30 tabs dicyclomine 10 mg capsule 10 mg PO BID #30 caps 09/30/22 prednisone 20 mg tablet 40 mg PO DAILY 5 days #10 tabs 12/29/22 Allergies Allergy/AdvReac Type Severity Reaction Status Date / Time venom-honey bee Allergy Severe Verified 11/05/22 01:32 Sulfa (Sulfonamide Allergy HIVES Verified 11/05/22 01:32 Antibiotics) General Stated Complaint: Dizzy/Sync MIKE: 3 Review of Systems All systems reviewed & are unremarkable except as noted in HPI and below PFSH All Active Problems (Updated 12/29/22 @ 15:16 by Gaye Stevenson NP) Depression (Chronic) Takes Fluoxetine 20mg QD with good impact on her depression, denies any SI. Encouraged to continue. to try to tame a hoiurde. Asthma (Chronic) Gastroesophageal reflux disease (Chronic) Right lower quadrant abdominal pain (Acute) Hypomagnesemia (Acute) Syncope (Chronic) Dehydration (Acute) Near syncope (Acute) Bradycardia (Acute) Vertigo (Acute) Dizziness (Acute) Nonspecific paroxysmal spell (Acute) DVT prophylaxis (Acute) Discharge planning issues (Acute) Pre-syncope (Acute) RLQ abdominal tenderness (Acute) N&V (nausea and vomiting) (Acute) Abnormal CT of the abdomen (Acute) Nausea and vomiting in adult (Acute) GERD (gastroesophageal reflux disease) (Chronic) Gallstones without obstruction of gallbladder (Acute) Calculus of gallbladder with chronic cholecystitis without obstruction (Acute) Atypical chest pain (Acute) Muscle pain (Acute) Shortness of breath (Acute) Type 2 diabetes mellitus (Acute) Nail dystrophy (Acute) Pruritic erythematous rash (Acute) Medical History Acne (04/21/13) Back pain Taking prednisone 60mg QD for 4 days. Currently on day 2. Not feeling it is making much of a difference but she was encouraged to take for the full 4 days. Also suggested she take the muscle relaxer only PRN as it makes her quite drowsy. Encouraged to take at night. To help with rest. Other valenzuela, suggested she increse Aleve to AM & PM dose, then supplement with 1000mg Acetaminophen every 4-6 hours up to a total of 4000mg/day. Suggested ice might help more than heat but either should be limited to only 20 minutes at a time. Use topicals (Solopas Gel or Aspercreame with Lidocaine seem to be quite helpful. Try to avoid sitting or standing still for prolonged periods of time. Walking on flat ground is encourage. Gestational diabetes mellitus High ankle sprain of right lower extremity Pacemaker Tobacco use (10/15/14) quit 01/2016 Surgical History ANAL SURGERY surgical drainage of anal fissure Dilation and curettage X 2 with losses discectomy (~2003) Endometrial Ablation (~2009) History of bilateral ligation of fallopian tubes History of cholecystectomy (~03/2019) History of discectomy History of esophagogastroduodenoscopy (EGD) (~01/2019) History of hysterectomy Ligation of fallopian tube S/P endometrial ablation irregular bleeding has restarted, neg EM bx 01/2016 Status post dilation and curettage Family History Mother Hyperlipidemia Thyroid disorder Father Essential hypertension Diabetes Personal history of malignant neoplasm prostate Heart disease Hyperlipidemia Myocardial infarction Social History Smoking/Tobacco Use Status: Current every day Tobacco Type: cigarettes and e- cigarettes Tobacco: How many years used: 20 Smoking risk assessment performed?: Yes Alcohol Intake: current Alcohol Intake frequency: holidays/special occasions only Drug use: Never Substance use type: does not use Household members: family and other Details: Lives with demented mother and her brother Housing: apartment 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 Exam Eyes Pupils: pinpoint bilaterally Skin Lesions: lesion noted erosion bilateral dorsal forearm other (Excoriations noted bilaterally, open wound with surrounding erythema. ) Trauma: abrasion Full body images: 1. 2 open excoriations noted 2. open excoriations from scratching noted, surrounding erythema. Course Vital Signs Vital signs: Vital Signs Temperature 36.6 C 12/29/22 13:01 Pulse 73 12/29/22 13:01 Respiratory Rate 16 12/29/22 13:01 Blood Pressure 123/85 12/29/22 13:01 Pulse Oximetry 96 12/29/22 13:01 Temperature 36.6 C 12/29/22 13:01 Temperature Source Skin 12/29/22 13:01 Pulse 73 12/29/22 13:01 Respiratory Rate 16 12/29/22 13:01 Blood Pressure 123/85 12/29/22 13:01 Blood Pressure Position Sitting 12/29/22 13:01 Pulse Oximetry 96 12/29/22 13:01 Oxygen Delivery Method Room Air 12/29/22 13:01 Oxygen Flow Rate 0 12/29/22 13:01 Pain Level 10 12/29/22 13:01 Comment used calamine lotion on rash 12/29/22 13:01
[2022-12-29] MEDS: diphenhydrAMINE 25 MG CAP PO (15:30)
[2022-12-29] MEDS: Hydrocortisone 1% CR 30 GM TUBE TP (15:30)
[2022-12-29] MEDS: predniSONE 20 MG TAB 40 MG PO (15:30)
== END 2022-12-29 15:31 | disposition home or self-care (01) ==
PROVIDERS: Emergency Provider Registered Nurse Emergency; PCP Nurse Practitioner Family
DX: L29.8 Other pruritus (principal)
CPT/HCPCS: 93005; 99283; 93010; 99284; J7512

== ENCOUNTER 2023-01-06 04:07 | Emergency (ER) | payer MEDICARE, MEDICAID, SELFPAY ==
[2023-01-06] VITALS (50 sets, daily range): BP systolic 118–146; BP diastolic 62–104; PULSE 63–111; RESP 12–35; TEMP 36.8; O2SAT 91–98
--- NOTE | 2023-01-06 04:00 | RT.EKG_ITS ---
APPROVED REPORT Exam: Resting ECG Reason for Exam: chest pain Patient Location: E HR:87 bpm ECG Measurements Heart Rate 87 AXIS ME 140 P 56 QRSd 78 QRS 11 QT 377 T 38 QTc 455 Conclusion Sinus rhythm...normal P axis, V-rate 60- 99 Low voltage, precordial leads...precordial leads <1.0mV Normal sinus rhythm at a rate of 87. Normal axis. Intervals within normal limits. No ST segment ab normalities. No T wave inversions. T wave flattening in aVL. Appears similar to prior. Prior date d last month.
--- NOTE | 2023-01-06 04:22 | ED.GENADUL_ITS ---
Discharge Plan Discharge Details Chief Complaint: Chest Pain Primary Care Provider: BELTRAN JHAVERI ED Provider: Debbi Reno Home Meds and New Rx's Prescriptions: No Action docusate sodium 100 mg capsule 100 mg PO DAILY esomeprazole magnesium 40 mg capsule,delayed release(DR/EC) 40 mg PO DAILY fluticasone propion-salmeterol [Advair Diskus] 100-50 mcg/dose blister with device 2 inh inhalation BID Rx Instructions: pt reported - dose unverified. albuterol sulfate 90 mcg/actuation HFA aerosol inhaler 2 puff IH Q6H PRN (Reason: shortness of breath or wheezing) Qty: 18 6RF ibuprofen [IBU-200] 200 mg tablet 600 mg PO Q6H PRN (Reason: pain) Qty: 90 2RF Rx Instructions: take w/ carafate. do not take on an empty stomach lithium carbonate 300 mg tablet extended release 1 tab PO DAILY Patient Comments: TAKE 1 TABLET BY MOUTH IN THE EVENING Spiriva Respimat 1.25 mcg/actuation mist 2 spray INHALATION BID Patient Comments: INHALE 2 SPRAY(S) BY MOUTH IN THE MORNING cetirizine 10 mg tablet 10 mg DAILY famotidine 20 mg tablet 20 mg PO BID cholecalciferol (vitamin D3) 50 mcg (2,000 unit) capsule 50 mcg PO DAILY Patient Comments: TAKE TWO CAPSULES BY MOUTH EVERY DAY Linzess 290 mcg capsule 290 mcg PO DAILY meclizine 25 mg tablet 12.5 mg PO TID PRN (Reason: dizziness) bupropion HCl 300 mg tablet extended release 24 hr 150 mg PO DAILY escitalopram oxalate 20 mg tablet 20 mg PO DAILY AM Patient Comments: TAKE 1 TABLET BY MOUTH ONCE DAILY midodrine 2.5 mg tablet 2 tab PO TID Patient Comments: TAKE 2 TABLETS BY MOUTH THREE TIMES DAILY potassium chloride 20 mEq tablet extended release 20 tab PO DAILY AM Patient Comments: TAKE 1 TABLET BY MOUTH ONCE DAILY metformin 500 mg tablet See Rx Instructions PO BID Rx Instructions: 1,000mg Qam , 500mg Qpm ondansetron 4 mg tablet,disintegrating 4 mg PO Q8H PRN (Reason: nausea and vomiting) Qty: 30 0RF dicyclomine 10 mg capsule 10 mg PO BID Qty: 30 0RF HPI General Date/Time Provider Initiated Documentation: 01/06/23 04:22 . HPI Narrative: HPI This is a 47-year-old female in the emergency department with multiple medical complaints. She endorses chest pain that began at 1 AM. She says that she feels a tightness in her chest. She also has a home [employer] monitor which alarmed. She reports that this is an internal monitor. She did not pass out. She used her inhaler twice a day. She has been coughing up phlegm that is yellow. She has not had any fever. She does vape tobacco but denies ethanol and illicits. She reports that last week she developed a rash to her bilateral upper extremities for which she received topical and systemic steroids. She re ports that the rash is worsening. She says that it itches. She has not been picking at her rash. Exam General: Well-appearing in no acute distress speaking in complete sentences. Head: Normocephalic, atraumatic. Eye: Extraocular eye movements intact. No conjunctival injection. No scleral icterus. Ear, nose, mouth, throat: Grossly normal inspection. Normal voice, handling secretions normally. Neck: Trachea midline. Cardiovascular: Well-perfused distal extremities. Regular rate and rhythm. Respiratory: Nonlabored respiration. Clear lungs bilaterally. Gastrointestinal: Nondistended abdomen. Musculoskeletal: No edema. Moving all 4 extremities spontaneously. Skin: On the patient's right upper extremity there is an approximately 4 x 1 cm excoriated area as shown in the photos as follows: On the patient's left upper extremity there are several excoriated areas that appear to be healing well as shown in the photos as follows: Neurologic: Alert and appropriate, no apparent acute deficits. Psychiatric: Mood and manner are appropriate. Grooming and personal hygiene are appropriate. MDM This is an overall very well-appearing normothermic and not tachycardic 47-year-old female with excoriated rash to bilateral upper extremities concerning for the possibility of impetigo and less likely poison anthony given lack of exposures. Patient denies skin picking so my suspicion is low for neurotic excoriations. No mucosal involvement nor bullae to suggest Moss-Noah's nor TEM. No vesicles to suggest zoster. No satellite lesions to suggest candidiasis. We will obtain Gram stain. Given the patient has been on outpatient oral and topical steroids we will touch base with dermatology at [facility]. Concerning the patient's chest pain is not pleuritic and she is PERC ne gative so I did not send a D-dimer as my suspicion was low for PE. Her ECG is nonischemic however will tend 2 sets of troponin. No trauma so doubt pneumothorax. Not hypotensive nor dialysis patient so doubt tamponade. No rash to chest to suggest zoster. No recent history of emesis to suggest increased risk for esophageal rupture. No tearing quality to suggest dissection. Given pruritus will attempt treatment with cetirizine. 5:48 AM Negative troponin. Negative hCG. CBC with leukocytosis but no anemia. No thrombocytopenia. Leukocytosis new compared to prior. Basic metabolic panel s howing CKD but no YESSI. Hyperglycemia but no anion gap and normal bicarbonate. Not consistent with DKA. 7:28 AM I spoke again to the transfer center at [facility] as I had not yet heard back from dermatology. They are having difficulty getting a hold of dermatology. Signed patient out to Dr. Reno pending dermatology consultation and repeat troponin. Imagine that dermatology will advise both topical mupirocin and systemic oral antibiotics such as cephalexin or clindamycin to cover Staph aureus but will hold antibiotics until dermatology has been consulted given failed outpatient treatment with steroids. I have uploaded pictures of the patient's rash into the [facility] EMR under the chart review, media tab. Chronic conditions affecting the care of the patient: GERD diabetes History obtained from an outside historian: N/A External record review: No [facility] EMR records [Diagnostic interpretations performed by me:] [Per my independent interpretation chest x-ray shows:] No acute cardiopulmonary process on my preliminary interpretation [Per my independent interpretation EKG shows:] Normal sinus rhythm at a rate of 87. Normal axis. Intervals within normal limits. No ST segment abnormalities. No T wave inversions. T wave flattening in aVL. Poor R wave progression.Appears similar to prior. Prior dated last month. Medications: Cetirizine Social determinants of health affecting disposition: N/A Management discussed with: Dr. Reno Treatment/interventions considered: N/A Response to therapies provided: N/A Related Data Home Medications Medication Instructions Recorded Confirmed ibuprofen 200 mg tablet (IBU-200) 600 mg PO Q6H PRN pain #90 tabs 03/31/19 11/05/22 albuterol sulfate 90 mcg/actuation 2 puff inhalation Q6H PRN 10/15/19 11/05/22 aerosol inhaler shortness of breath or wheezing #18 grams cetirizine 10 mg tablet 10 mg DAILY 02/14/21 11/05/22 cholecalciferol (vitamin D3) 50 50 mcg PO DAILY 02/14/21 11/05/22 mcg (2,000 unit) capsule famotidine 20 mg tablet 20 mg PO BID 02/14/21 11/05/22 linaclotide 290 mcg capsule 290 mcg PO DAILY 02/14/21 11/05/22 (Linzess) meclizine 25 mg tablet 12.5 mg PO TID PRN dizziness 02/14/21 11/05/22 escitalopram oxalate 20 mg tablet 20 mg PO DAILY AM 11/12/21 11/05/22 midodrine 2.5 mg tablet 2 tab PO TID 11/12/21 11/05/22 potassium chloride 20 mEq 20 tab PO DAILY AM 11/12/21 11/05/22 tablet,extended release lithium carbonate 300 mg 1 tab PO DAILY 03/19/22 11/05/22 tablet,extended release tiotropium bromide 1.25 2 spray inhalation BID 03/19/22 11/05/22 mcg/actuation mist for inhalation (Spiriva Respimat) ondansetron 4 mg disintegrating 4 mg PO Q8H PRN nausea and 06/15/22 11/05/22 tablet vomiting #30 tabs bupropion HCl 300 mg 24 hr tablet, 150 mg PO DAILY 09/13/22 11/05/22 extended release docusate sodium 100 mg capsule 100 mg PO DAILY 09/13/22 11/05/22 esomeprazole magnesium 40 mg 40 mg PO DAILY 09/13/22 11/05/22 capsule,delayed release fluticasone 100 mcg-salmeterol 50 2 inh inhalation BID 09/13/22 11/05/22 mcg/dose blistr powdr for inhalation (Advair Diskus) metformin 500 mg tablet See Rx Instructions PO BID 09/13/22 11/05/22 dicyclomine 10 mg capsule 10 mg PO BID #30 caps 09/30/22 11/05/22 Previous Rx's Medication Instructions Recorded ibuprofen 200 mg tablet (IBU-200) 600 mg PO Q6H PRN pain #90 tabs 03/31/19 albuterol sulfate 90 mcg/actuation 2 puff inhalation Q6H PRN 10/15/19 aerosol inhaler shortness of breath or wheezing #18 grams ondansetron 4 mg disintegrating 4 mg PO Q8H PRN nausea and 06/15/22 tablet vomiting #30 tabs dicyclomine 10 mg capsule 10 mg PO BID #30 caps 09/30/22 Allergies Allergy/AdvReac Type Severity Reaction Status Date / Time venom-honey bee Allergy Severe Verified 11/05/22 01:32 Sulfa (Sulfonamide Allergy HIVES Verified 11/05/22 01:32 Antibiotics) General Stated Complaint: Chest Pain MIKE: 3 PFSH All Active Problems (Updated 12/29/22 @ 15:16 by Gaye Stevenson NP) Depression (Chronic) Takes Fluoxetine 20mg QD with good impact on her depression, denies any SI. Encouraged to continue. to try to tame a hoiurde. Asthma (Chronic) Gastroesophageal reflux disease (Chronic) Right lower quadrant abdominal pain (Acute) Hypomagnesemia (Acute) Syncope (Chronic) Dehydration (Acute) Near syncope (Acute) Bradycardia (Acute) Vertigo (Acute) Dizziness (Acute) Nonspecific paroxysmal spell (Acute) DVT prophylaxis (Acute) Discharge planning issues (Acute) Pre-syncope (Acute) RLQ abdominal tenderness (Acute) N&V (nausea and vomiting) (Acute) Abnormal CT of the abdomen (Acute) Nausea and vomiting in adult (Acute) GERD (gastroesophageal reflux disease) (Chronic) Gallstones without obstruction of gallbladder (Acute) Calculus of gallbladder with chronic cholecystitis without obstruction (Acute) Atypical chest pain (Acute) Muscle pain (Acute) Shortness of breath (Acute) Type 2 diabetes mellitus (Acute) Nail dystrophy (Acute) Pruritic erythematous rash (Acute) Medical History Acne (04/21/13) Back pain Taking prednisone 60mg QD for 4 days. Currently on day 2. Not feeling it is making much of a difference but she was encouraged to take for the full 4 days. Also suggested she take the muscle relaxer only PRN as it makes her quite drowsy. Encouraged to take at night. To help with rest. Other valenzuela, suggested she increse Aleve to AM & PM dose, then supplement with 1000mg Acetaminophen every 4-6 hours up to a total of 4000mg/day. Suggested ice might help more than heat but either should be limited to only 20 minutes at a time. Use topicals (Solopas Gel or Aspercreame with Lidocaine seem to be quite helpful. Try to avoid sitting or standing still for prolonged periods of time. Walking on flat ground is encourage. Gestational diabetes mellitus High ankle sprain of right lower extremity Pacemaker Tobacco use (10/15/14) quit 01/2016 Surgical History ANAL SURGERY surgical drainage of anal fissure Dilation and curettage X 2 with losses discectomy (~2003) Endometrial Ablation (~2009) History of bilateral ligation of fallopian tubes History of cholecystectomy (~03/2019) History of discectomy History of esophagogastroduodenoscopy (EGD) (~01/2019) History of hysterectomy Ligation of fallopian tube S/P endometrial ablation irregular bleeding has restarted, neg EM bx 01/2016 Status post dilation and curettage Family History Mother Hyperlipidemia Thyroid disorder Father Essential hypertension Diabetes Personal history of malignant neoplasm prostate Heart disease Hyperlipidemia Myocardial infarction Social History Smoking/Tobacco Use Status: Current every day Tobacco Type: cigarettes and e- cigarettes Tobacco: How many years used: 20 Smoking risk assessment performed?: Yes Alcohol Intake: current Alcohol Intake frequency: holidays/special occasions only Drug use: Never Substance use type: does not use Household members: family and other Details: Lives with demented mother and her brother Housing: apartment current occupation: [employer]; [employer]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 Course Vital Signs Vital signs: Vital Signs Temperature 36.8 C 01/06/23 04:11 Pulse 98 H 01/06/23 04:11 Respiratory Rate 16 01/06/23 04:11 Blood Pressure 146/104 H 01/06/23 04:11 Pulse Oximetry 98 01/06/23 04:11 Temperature 36.8 C 01/06/23 04:11 Temperature Source Oral 01/06/23 04:11 Pulse 98 H 01/06/23 04:11 Respiratory Rate 18 01/06/23 04:13 Respiratory Effort Normal 01/06/23 04:13 Respiratory Depth Normal 01/06/23 04:13 Respiratory Pattern Normal 01/06/23 04:13 Blood Pressure 146/104 H 01/06/23 04:11 Blood Pressure Position Sitting 01/06/23 04:11 Pulse Oximetry 98 01/06/23 04:11 Oxygen Delivery Method Room Air 01/06/23 04:11 Oxygen Flow Rate 0 01/06/23 04:11 Pain Level 8 01/06/23 04:13 Comment pts arm has a superficial wound that is at a 10/10 pain. chest pain is at an 8 out of 10 01/06/23 04:11
--- NOTE | 2023-01-06 04:45 | DI.RAD_ITS ---
Exam(s) XR CHEST 2V PA LATERAL EXAM: XR CHEST 2V PA LATERAL CLINICAL HISTORY: Chest pain TECHNIQUE: 2D digital imaging was performed of the chest. Two images were obtained. PA and lateral views were obtained. COMPARISON: CR,XR XR CHEST 2V PA LATERAL from 05/12/2019 CR,XR XR CHEST 2V PA LATERAL from 11/05/2022 FINDINGS: MEDIASTINUM: Normal. HEART: Normal. PULMONARY VASCULATURE: Normal. LUNGS: Clear. PLEURAL SPACE: No pleural effusion or pneumothorax. BONE:Within normal limits for the patient's age. OTHER FINDINGS:Normal. IMPRESSION: No acute pulmonary findings. DATA REPOSITORY: RADIATION DOSE DELIVERED:
[2023-01-06 05:02] LABS: Abs Immature Grans 0.13 10^3/uL (0.0-0.06); Absolute Lymphocyte Count 1.11 10^3/uL (1.2-3.4); Absolute Monocyte Count 0.31 10^3/uL (0.1-0.8); Basophils % 0.4; Eosinophils % 0.4; HCT 40.2 % (36.0-46.0); Immature Grans % 0.9; Lymphocytes % 7.9; MCH 26.6 pg (27.0-33.0); MCHC 32.3 % (32.0-36.0); MCV 82 fL (80-95); MPV 11.3 fL (8.0-11.0); Monocytes % 2.2; Neutrophils % 88.2; Platelet Count 287 10^3/uL (130-400); RBC 4.88 10^6/uL (3.93-5.22); RDW 13.8 % (11.7-14.6); WBC 14.07 10^3/uL (4.4-10.8)
[2023-01-06 05:14] LABS: Absolute Basophil Count 0.06 10^3/uL (0.0-0.2); Absolute Eosinophil Count 0.06 10^3/uL (0.0-0.7); Absolute Neutrophil Count 12.41 10^3/uL (1.2-6.7)
[2023-01-06 05:17] LABS: HCG Qual (Serum) Negative
[2023-01-06 05:22] LABS: Anion Gap 9.9 mmol/L (3-11); BUN 8 mg/dL (7-18); CO2 23.1 mmol/L (21.0-32.0); CREATININE 1.1 mg/dL (0.55-1.02); Chloride 100 mmol/L (98-107); Estimated GFR 61.98 (mL/min/1.73m2); Glucose 295 mg/dL (74-106); Potassium 3.7 mmol/L (3.5-5.1); Sodium 133 mmol/L (136-145); Troponin I < 50 ng/L (<or=60)
[2023-01-06] MEDS: Cetirizine 10 MG TAB PO (06:15)
--- NOTE | 2023-01-06 06:22 | DI.VRAD_ITS ---
PROCEDURE INFORMATION: Exam: XR Chest Exam date and time: 01/06/2023 5:33 AM Age: 47 years old Clinical indication: Pain; Chest pressure TECHNIQUE: Imaging protocol: Radiologic exam of the chest. Views: 2 views. COMPARISON: CR XR CHEST 2V PA LATERAL 11/05/2022 3:05 AM FINDINGS: Lungs: Unremarkable. No consolidation. Pleural spaces: Unremarkable. No pleural effusion. No pneumothorax. Heart/Mediastinum: Unremarkable. No cardiomegaly. Bones/joints: Unremarkable. IMPRESSION: No acute findings. Dictated and Authenticated by: Jossie Barber MD. Ordering:TONY Kellogg MD
--- NOTE | 2023-01-06 07:32 | ED.PROG_ITS ---
Date of service: 01/06/23 Time of Service: 07:00 Medical Decision Making This patient was signed out to me. Please see previous notes for H&P and initial eval. In brief, 47yo F presenting with multiple concerns; chest pain since 1 am, rash. Rash was initial treated with steroids but has been worsening, ? impetitgo. Workup thus far reassuring, EKG without acute ischemic changes, CXR with no acute findings, CBC and CMP reassuring, initial troponin negative. Signed out pending delta troponin and [facility] dermatology consult; if troponin negative likely discharge home. Repeat troponin negative. Discussed [facility] dermatology Dr. Alfred; advised topical mupirocin, outpatient followup. On reassessment patient remains nontoxic appearing with reassuring vital signs. Discharged home; discharge instructions including return precautions were reviewed with patient who verbalized understanding. All questions were answered and they are in full agreement with the plan. Lab Data Lab results reviewed: Yes I reviewed the patient's lab results. Labs: 01/06/23 06:10 Arm - Right Lower Wound Culture - Pending 01/06/23 06:10 Arm - Right Lower Gram Stain - Final Laboratory Tests Range/Units 01/06/23 01/06/23 01/06/23 04:20 04:20 04:20 WBC (4.4-10.8) 10^3/uL 14.07 H RBC (3.93-5.22) 10^6/uL 4.88 Hgb (11.2-15.7) g/dL 13.0 Hct (36.0-46.0) % 40.2 MCV (80-95) fL 82 MCH (27.0-33.0) pg 26.6 L MCHC (32.0-36.0) % 32.3 RDW (11.7-14.6) % 13.8 Plt Count (130-400) 10^3/uL 287 MPV (8.0-11.0) fL 11.3 H Immature Gran % 0.9 Neutrophils % 88.2 Lymphocytes % 7.9 Monocytes % 2.2 Eosinophils % 0.4 Basophils % 0.4 Nucleated RBC % (0.0-0.3) % 0.0 Absolute Neutrophils (1.2-6.7) 10^3/uL 12.41 H Absolute Lymphocytes (1.2-3.4) 10^3/uL 1.11 L Absolute Monocytes (0.1-0.8) 10^3/uL 0.31 Absolute Eosinophils (0.0-0.7) 10^3/uL 0.06 Absolute Basophils (0.0-0.2) 10^3/uL 0.06 Sodium (136-145) mmol/L 133 L Potassium (3.5-5.1) mmol/L 3.7 Chloride (98-107) mmol/L 100 Carbon Dioxide (21.0-32.0) mmol/L 23.1 Anion Gap (3-11) mmol/L 9.9 BUN (7-18) mg/dL 8 Creatinine (0.55-1.02) mg/dL 1.1 H Est GFR (CKD-EPI 2020) (mL/min/1.73m2) 61.98 Glucose (74-106) mg/dL 295 H Calcium (8.5-10.1) mg/dL 9.0 Troponin I (<or=60) ng/L < 50 Serum HCG, Qual Negative Discharge Plan Disposition Patient Disposition: Home Condition: Good Discharge Details Clinical Impression: Chest pain, Rash Primary Care Provider: BELTRAN JHAVERI ED Provider: Debbi Reno Home Meds and New Rx's Prescriptions: New mupirocin 2 % ointment 1 applic topical TID Qty: 22 0RF No Action docusate sodium 100 mg capsule 100 mg PO DAILY esomeprazole magnesium 40 mg capsule,delayed release(DR/EC) 40 mg PO DAILY fluticasone propion-salmeterol [Advair Diskus] 100-50 mcg/dose blister with device 2 inh inhalation BID Rx Instructions: pt reported - dose unverified. albuterol sulfate 90 mcg/actuation HFA aerosol inhaler 2 puff IH Q6H PRN (Reason: shortness of breath or wheezing) Qty: 18 6RF ibuprofen [IBU-200] 200 mg tablet 600 mg PO Q6H PRN (Reason: pain) Qty: 90 2RF Rx Instructions: take w/ carafate. do not take on an empty stomach lithium carbonate 300 mg tablet extended release 1 tab PO DAILY Patient Comments: TAKE 1 TABLET BY MOUTH IN THE EVENING Spiriva Respimat 1.25 mcg/actuation mist 2 spray INHALATION BID Patient Comments: INHALE 2 SPRAY(S) BY MOUTH IN THE MORNING cetirizine 10 mg tablet 10 mg DAILY famotidine 20 mg tablet 20 mg PO BID cholecalciferol (vitamin D3) 50 mcg (2,000 unit) capsule 50 mcg PO DAILY Patient Comments: TAKE TWO CAPSULES BY MOUTH EVERY DAY Linzess 290 mcg capsule 290 mcg PO DAILY meclizine 25 mg tablet 12.5 mg PO TID PRN (Reason: dizziness) bupropion HCl 300 mg tablet extended release 24 hr 150 mg PO DAILY escitalopram oxalate 20 mg tablet 20 mg PO DAILY AM Patient Comments: TAKE 1 TABLET BY MOUTH ONCE DAILY midodrine 2.5 mg tablet 2 tab PO TID Patient Comments: TAKE 2 TABLETS BY MOUTH THREE TIMES DAILY potassium chloride 20 mEq tablet extended release 20 tab PO DAILY AM Patient Comments: TAKE 1 TABLET BY MOUTH ONCE DAILY metformin 500 mg tablet See Rx Instructions PO BID Rx Instructions: 1,000mg Qam , 500mg Qpm ondansetron 4 mg tablet,disintegrating 4 mg PO Q8H PRN (Reason: nausea and vomiting) Qty: 30 0RF dicyclomine 10 mg capsule 10 mg PO BID Qty: 30 0RF Discharge Instructions Instructions: Chest Pain (ED) Additional Instructions: Call your primary care doctor today to schedule an appointment for early next week to follow up on your visit today. Follow up with dermatology for your rash. Use the antibiotic ointment three times a day until the rash is gone. Return to the emergency department for new or worsening symptoms, including new/different/worse chest pain, difficulty breathing, feeling like you are going to pass out, fever, or if you have any other concerns. Referrals: DERMATOLOGY,[facility] [OTHER] -
[2023-01-06] MEDS: Acetaminophen 500 MG TAB 1000 MG PO (07:55)
[2023-01-06 08:33] LABS: Troponin I < 50 ng/L (<or=60)
[2023-01-06] MEDS: Chlorhexidine 4% 120 ML BTL (09:16)
== END 2023-01-06 09:19 | disposition home or self-care (01) ==
PROVIDERS: Emergency Medicine; Emergency Provider Student in an Organized Health Care Education/Training Program; PCP Nurse Practitioner Family
DX: R07.9 Chest pain, unspecified (principal); R21 Rash and other nonspecific skin eruption; F17.290 Nicotine dependence, other tobacco product, uncomplicated; F17.210 Nicotine dependence, cigarettes, uncomplicated; Z79.84 Long term (current) use of oral hypoglycemic drugs; D72.829 Elevated white blood cell count, unspecified; E11.9 Type 2 diabetes mellitus without complications
CPT/HCPCS: 36415; 80048; 87077; 93005; 99284; 71046; 84484; 84703; 85025; 87070; 87186; 87205; 93010

== ENCOUNTER 2023-02-04 22:23 | Emergency (ER) | payer MEDICARE, MEDICAID, SELFPAY ==
[2023-02-04] VITALS (15 sets, daily range): BP systolic 120–164; BP diastolic 61–82; PULSE 68–95; RESP 0–22; TEMP 37.2; O2SAT 99
--- NOTE | 2023-02-04 22:15 | RT.EKG_ITS ---
APPROVED REPORT Exam: Resting ECG Reason for Exam: racing heart Patient Location: E HR:77 bpm ECG Measurements Heart Rate 77 AXIS RI 156 P 66 QRSd 82 QRS 3 QT 421 T 25 QTc 477 Conclusion Sinus rhythm...normal P axis, V-rate 60- 99 Low voltage, precordial leads. Non-specific repolarization abnormalities without pattern injury ischemia noted. baseline wander in V1-V2
--- NOTE | 2023-02-04 22:30 | DI.RAD_ITS ---
Exam(s) XR CHEST 2V PA LATERAL EXAM: XR CHEST 2V PA LATERAL CLINICAL HISTORY: cough, dizziness TECHNIQUE: 2D digital imaging was performed of the chest. Two images were obtained. PA and lateral views were obtained. COMPARISON: CR,XR XR CHEST 2V PA LATERAL from 01/06/2023 FINDINGS: MEDIASTINUM: Normal. HEART: Normal. PULMONARY VASCULATURE: Normal. LUNGS: Clear. PLEURAL SPACE: No pleural effusion or pneumothorax. BONE:Within normal limits for the patient's age. OTHER FINDINGS:There are surgical clips again seen in the right upper quadrant of the abdomen likely reflecting prior cholecystectomy. A cardiac monitoring device is seen overlying the left chest wall. IMPRESSION: No acute pulmonary findings. DATA REPOSITORY: RADIATION DOSE DELIVERED:
--- NOTE | 2023-02-04 22:48 | W.ED.GENAD ---
Discharge Plan Disposition Patient Disposition: Home Discharge Details Clinical Impression: Dizziness, Acute hypokalemia Primary Care Provider: BELTRAN JHAVERI ED Provider: Travis Colbert Home Meds and New Rx's Prescriptions: No Action Januvia 50 mg tablet 50 mg PO DAILY ketoconazole 2 % cream 1 applic topical DAILY 90 Days Qty: 60 0RF Rx Instructions: Apply to toenails once daily docusate sodium 100 mg capsule 100 mg PO DAILY esomeprazole magnesium 40 mg capsule,delayed release(DR/EC) 40 mg PO DAILY fluticasone propion-salmeterol [Advair Diskus] 100-50 mcg/dose blister with device 2 inh inhalation BID Rx Instructions: pt reported - dose unverified. ibuprofen [IBU-200] 200 mg tablet 600 mg PO Q6H PRN (Reason: pain) Qty: 90 2RF Rx Instructions: take w/ carafate. do not take on an empty stomach lithium carbonate 300 mg tablet extended release 1 tab PO DAILY Patient Comments: TAKE 1 TABLET BY MOUTH IN THE EVENING Spiriva Respimat 1.25 mcg/actuation mist 2 spray INHALATION BID Patient Comments: INHALE 2 SPRAY(S) BY MOUTH IN THE MORNING famotidine 20 mg tablet 20 mg PO BID cholecalciferol (vitamin D3) 50 mcg (2,000 unit) capsule 50 mcg PO DAILY Patient Comments: TAKE TWO CAPSULES BY MOUTH EVERY DAY Linzess 290 mcg capsule 290 mcg PO DAILY meclizine 25 mg tablet 12.5 mg PO TID PRN (Reason: dizziness) bupropion HCl 300 mg tablet extended release 24 hr 150 mg PO DAILY escitalopram oxalate 20 mg tablet 20 mg PO DAILY AM Patient Comments: TAKE 1 TABLET BY MOUTH ONCE DAILY midodrine 2.5 mg tablet 2 tab PO TID Patient Comments: TAKE 2 TABLETS BY MOUTH THREE TIMES DAILY potassium chloride 20 mEq tablet extended release 20 tab PO DAILY AM Patient Comments: TAKE 1 TABLET BY MOUTH ONCE DAILY ondansetron 4 mg tablet,disintegrating 4 mg PO Q8H PRN (Reason: nausea and vomiting) Qty: 30 0RF mupirocin 2 % ointment 1 applic topical TID Qty: 22 0RF Discharge Instructions Instructions: Hypokalemia (ED) Additional Instructions: Increase your potassium chloride tablets from one 20 mEq tablets daily to two 20 mEq tablets daily. You can follow back up with your regular primary care doctor for recheck of your potassium level sometime within the next 2 weeks. Drink plenty of water to stay hydrated. You can always return to the ER for any new concerns or sudden changes in your health which you feel require emergency medical attention. Discharge Data Discharge Physician: Travis Colbert Medical Decision Making The patient was seen and examined. She has relatively frequent visits for several of these complaints and is chronically prescribed meclizine due to a history of dizziness. The patient's EKG represents a normal sinus rhythm with a ventricular response rate of 7 7 bpm. Although there is some T wave flattening globally throughout the tracing, there is no significant abnormality of the patient's T waves or ST segments have been indicative of pattern injury ischemia. There is some abnormal baseline in V1 and V2 which limits interpretation to some extent. The patient has normal vital signs and does not seem to be in any significant distress. I am doubtful that there is any significant underlying cardiac pathology present. The patient may have had enough diarrhea to develop some mild volume depletion which may be driving her to feel somewhat lightheaded. Although she complains of black stools the patient certainly does not have the appearance of being profoundly anemic or vital signs would be consistent with an acute GI bleed. The patient will have a CBC to check her current blood counts against a recent emergency room visit in mid December. The patient will have serial troponin enzymes to screen her for myocardial ischemia as a possible etiology for her symptoms. She will have toxicologic and infectious work-up as well to evaluate for these sources as a possible basis for early constitutional symptoms. If the person's work-up is negative for any acute pathology, she may be able to be discharged home in the morning after serial enzymes. Disposition depends on discovery of pathology. HPI General Date/Time Provider Initiated Documentation: 02/04/23 22:26. HPI Narrative: The patient is a 47-year-old female, with a past medical history significant for having an implantable quality assurance monitor final, [id number] diabetes, gastritis, and irritable bowel syndrome, who presents to the emergency department this evening with complaints of lightheadedness and some chest tightness intermittently throughout the day. The patient is seen in the emergency room quite frequently, monthly or twice monthly, generally for a variety of complaints but most recently for chest pain and a rash which was felt to be impetigo based. The patient denies any recent changes in diet or hydration level. She does tell me that she has been having some intermittent diarrhea for several days which she describes as black in color. She denies any recent sick contacts, fevers or chills, or upper respiratory tract symptoms. She denies any associated abdominal pain or vomiting. The patient has not taken any specific actions or medications to help improve her symptoms. Related Data Home Medications Medication Instructions Recorded Confirmed ibuprofen 200 mg tablet (IBU-200) 600 mg (3 x 200 mg) PO Q6H PRN 03/31/19 02/04/23 pain #90 tabs cholecalciferol (vitamin D3) 50 50 mcg PO DAILY 02/14/21 02/04/23 mcg (2,000 unit) capsule famotidine 20 mg tablet 20 mg PO BID 02/14/21 02/04/23 linaclotide 290 mcg capsule 290 mcg PO DAILY 02/14/21 02/04/23 (Linzess) meclizine 25 mg tablet 12.5 mg PO TID PRN dizziness 02/14/21 02/04/23 escitalopram oxalate 20 mg tablet 20 mg PO DAILY AM 11/12/21 02/04/23 midodrine 2.5 mg tablet 2 tab PO TID 11/12/21 02/04/23 potassium chloride 20 mEq 20 tab PO DAILY AM 11/12/21 02/04/23 tablet,extended release lithium carbonate 300 mg 1 tab PO DAILY 03/19/22 02/04/23 tablet,extended release tiotropium bromide 1.25 2 spray inhalation BID 03/19/22 02/04/23 mcg/actuation mist for inhalation (Spiriva Respimat) ondansetron 4 mg disintegrating 4 mg PO Q8H PRN nausea and 06/15/22 02/04/23 tablet vomiting #30 tabs bupropion HCl 300 mg 24 hr tablet, 150 mg PO DAILY 09/13/22 02/04/23 extended release docusate sodium 100 mg capsule 100 mg PO DAILY 09/13/22 02/04/23 esomeprazole magnesium 40 mg 40 mg PO DAILY 09/13/22 02/04/23 capsule,delayed release fluticasone 100 mcg-salmeterol 50 2 inh inhalation BID 09/13/22 02/04/23 mcg/dose blistr powdr for inhalation (Advair Diskus) mupirocin 2 % topical ointment 1 applic topical TID #22 grams 01/06/23 02/04/23 ketoconazole 2 % topical cream 1 applic topical DAILY 3 months 01/09/23 02/04/23 #60 grams sitagliptin phosphate 50 mg tablet 50 mg PO DAILY 01/09/23 02/04/23 (Tj) Previous Rx's Medication Instructions Recorded ibuprofen 200 mg tablet (IBU-200) 600 mg (3 x 200 mg) PO Q6H PRN 03/31/19 pain #90 tabs ondansetron 4 mg disintegrating 4 mg PO Q8H PRN nausea and 06/15/22 tablet vomiting #30 tabs mupirocin 2 % topical ointment 1 applic topical TID #22 grams 01/06/23 ketoconazole 2 % topical cream 1 applic topical DAILY 3 months 01/09/23 #60 grams Allergies Allergy/AdvReac Type Severity Reaction Status Date / Time venom-honey bee Allergy Severe Verified 02/04/23 22:33 Sulfa (Sulfonamide Allergy HIVES Verified 02/04/23 22:33 Antibiotics) General Stated Complaint: Dizzy/Sync MIKE: 2 PFSH All Active Problems (Updated 02/05/23 @ 02:09 by Travis Colbert MD) Acute hypokalemia (Acute) Tinea pedis (Acute) Onychomycosis (Acute) PVD (peripheral vascular disease) (Chronic) Type 2 diabetes mellitus with peripheral neuropathy (Acute) Rash (Acute) Chest pain (Acute) Nail dystrophy (Acute) Type 2 diabetes mellitus (Acute) Shortness of breath (Acute) Muscle pain (Acute) Atypical chest pain (Acute) Calculus of gallbladder with chronic cholecystitis without obstruction (Acute) Gallstones without obstruction of gallbladder (Acute) GERD (gastroesophageal reflux disease) (Chronic) Nausea and vomiting in adult (Acute) Abnormal CT of the abdomen (Acute) N&V (nausea and vomiting) (Acute) RLQ abdominal tenderness (Acute) Pre-syncope (Acute) Discharge planning issues (Acute) DVT prophylaxis (Acute) Nonspecific paroxysmal spell (Acute) Dizziness (Acute) Vertigo (Acute) Bradycardia (Acute) Near syncope (Acute) Dehydration (Acute) Syncope (Chronic) Hypomagnesemia (Acute) Right lower quadrant abdominal pain (Acute) Gastroesophageal reflux disease (Chronic) Asthma (Chronic) Depression (Chronic) Takes Fluoxetine 20mg QD with good impact on her depression, denies any SI. Encouraged to continue. to try to tame a hoiurde. Medical History Acne (04/21/13) Back pain Taking prednisone 60mg QD for 4 days. Currently on day 2. Not feeling it is making much of a difference but she was encouraged to take for the full 4 days. Also suggested she take the muscle relaxer only PRN as it makes her quite drowsy. Encouraged to take at night. To help with rest. Other valenzuela, suggested she increse Aleve to AM & PM dose, then supplement with 1000mg Acetaminophen every 4-6 hours up to a total of 4000mg/day. Suggested ice might help more than heat but either should be limited to only 20 minutes at a time. Use topicals (Sol[place]as Gel or Aspercreame with Lidocaine seem to be quite helpful. Try to avoid sitting or standing still for prolonged periods of time. Walking on flat ground is encourage. Gestational diabetes mellitus High ankle sprain of right lower extremity Pacemaker Tobacco use (10/15/14) quit 01/2016 Surgical History ANAL SURGERY surgical drainage of anal fissure Dilation and curettage X 2 with losses discectomy (~2003) Endometrial Ablation (~2009) History of bilateral ligation of fallopian tubes History of cholecystectomy (~03/2019) History of discectomy History of esophagogastroduodenoscopy (EGD) (~01/2019) History of hysterectomy Ligation of fallopian tube S/P endometrial ablation irregular bleeding has restarted, neg EM bx 01/2016 Status post dilation and curettage Family History Mother Hyperlipidemia Thyroid disorder Father Essential hypertension Diabetes Personal history of malignant neoplasm prostate Heart disease Hyperlipidemia Myocardial infarction Social History Smoking/Tobacco Use Status: Current every day Tobacco Type: cigarettes and e-cigarettes Tobacco: How many years used: 20 Smoking risk assessment performed?: Yes Alcohol Intake: current Alcohol Intake frequency: holidays/special occasions only Drug use: Never Substance use type: does not use Household members: family and other Details: Lives with demented mother and her brother Housing: apartment current occupation: [employer]; [employer]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 Exam Resp Other: The patient has normal respiratory effort with no increased work of breathing. She has normal auscultation in all 4 quadrants with good air exchange. Cardio Other: The patient is a normal sinus rhythm without any pauses or appreciated dysrhythmias. She has normal heart sounds. There are normal distal pulses Neuro Other: The patient has grossly intact cranial nerves with spontaneous movement of all 4 extremities and no complaints of sensory changes. There is no aphasia or dysarthria present Course Reevaluation(s) Initial Evaluation: The patient was doing well on recheck sitting up in her bed and not experiencing any symptoms. The patient underwent potassium repletion here in the emergency room. Cycle troponins revealed no elevation of her myocardial enzymes, leading me to think that the chest tightness was most likely related to anxiety surrounding her periods of dizziness and not related to any bouts of myocardial ischemia. I will continue to encourage the patient to take supplemental potassium, I will have her increase her dose to 20 mEq twice daily for the next 7 days as a bridge to primary care follow-up. Vital Signs Vital signs: Vital Signs Temperature 37.2 C 02/04/23 22:27 Pulse 83 02/04/23 22:27 Respiratory Rate 18 02/04/23 22:27 Blood Pressure 164/82 H 02/04/23 22:27 Pulse Oximetry 99 02/04/23 22:27 Temperature 37.2 C 02/04/23 22:27 Temperature Source Temporal Artery Scan 02/04/23 22:27 Pulse 83 02/04/23 22:27 Respiratory Rate 18 02/04/23 22:27 Respiratory Effort Normal 02/04/23 22:35 Blood Pressure 164/82 H 02/04/23 22:27 Blood Pressure Position Sitting 02/04/23 22:27 Pulse Oximetry 99 02/04/23 22:27 Oxygen Delivery Method Room Air 02/04/23 22:27 Oxygen Flow Rate 0 02/04/23 22:27 Pain Level 6 02/04/23 22:27
[2023-02-04 23:07] LABS: Abs Immature Grans 0.07 10^3/uL (0.0-0.06); Absolute Basophil Count 0.04 10^3/uL (0.0-0.2); Absolute Eosinophil Count 0.36 10^3/uL (0.0-0.7); Absolute Lymphocyte Count 2.35 10^3/uL (1.2-3.4); Absolute Monocyte Count 0.66 10^3/uL (0.1-0.8); Absolute Neutrophil Count 8.28 10^3/uL (1.2-6.7); Basophils % 0.3; Eosinophils % 3.1; HCT 41.8 % (36.0-46.0); HGB 13.4 g/dL (11.2-15.7); Immature Grans % 0.6; MCHC 32.1 % (32.0-36.0); MCV 84 fL (80-95); Monocytes % 5.6; Neutrophils % 70.4; Platelet Count 278 10^3/uL (130-400); RBC 4.96 10^6/uL (3.93-5.22); RDW 14.1 % (11.7-14.6); RDW-SD 43.2 fL; WBC 11.76 10^3/uL (4.4-10.8)
[2023-02-04] MEDS: Normal Saline 1,000 ML 1000 ML IV (23:11)
[2023-02-04 23:27] LABS: ALT 17 U/L (14-59); AST 22 U/L (15-37); Albumin 3.3 g/dL (3.4-5.0); Alkaline Phosphatase 109 U/L (46-116); Anion Gap 10.3 mmol/L (3-11); BUN 7 mg/dL (7-18); Bilirubin, Total 0.5 mg/dL (0.2-1.0); CO2 26.7 mmol/L (21.0-32.0); Calcium 9.1 mg/dL (8.5-10.1); Chloride 100 mmol/L (98-107); Estimated GFR 69.49 (mL/min/1.73m2); Glucose 185 mg/dL (74-106); Magnesium 2.2 mg/dL (1.8-2.4); Sodium 137 mmol/L (136-145); Total Protein 7.4 g/dL (6.4-8.2); Troponin I < 50 ng/L (<or=60)
[2023-02-04 23:32] LABS: ETHANOL BLOOD < 3.0 mg/dL (<10)
[2023-02-04 23:42] LABS: Lithium 0.4 mmol/l (0.6-1.2)
[2023-02-04 23:45] LABS: *AMPHETAMINES SCREEN URINE Negative (Negative); *BARBITURATES SCREEN URINE Negative (Negative); *BENZODIAZEPINES SCREEN URINE Negative (Negative); Cannabinoids THC Negative (Negative); Cocaine Screen,Urine Negative (Negative); METHADONE URINE SCREEN Negative (Negative); OPIATES URINE SCREEN Negative (Negative); Tricyclic Antidepressants Negative (Negative)
[2023-02-04] MEDS: Potassium Chloride 20 MEQ TABCR 40 MEQ PO (23:49)
[2023-02-04] MEDS: POTASSIUM CHLORIDE/0.9% NACL 1,000 ML 250 MEQ IV (23:50)
[2023-02-05] VITALS (24 sets, daily range): BP systolic 110–139; BP diastolic 60–89; PULSE 62–79; RESP 10–42; TEMP 36.6; O2SAT 97
--- NOTE | 2023-02-05 00:02 | DI.VRAD_ITS ---
PROCEDURE INFORMATION: Exam: XR Chest Exam date and time: 02/04/2023 11:28 PM Age: 47 years old Clinical indication: Cough and other: Dizziness; Prior surgery; Surgery date: 6+ months; Surgery type: Implanted monitor; Patient HX: Dizziness, cough, TECHNIQUE: Imaging protocol: Radiologic exam of the chest. Views: 2 views. Total images: 2 COMPARISON: CR XR CHEST 2V PA LATERAL 01/06/2023 5:33 AM FINDINGS: Tubes, catheters and devices: Loop recorder over the left chest. Lungs: Lungs appear clear. No visible consolidation. No pulmonary masses. Pulmonary vascularity is normal. Pleural spaces: No pleural effusion or pneumothorax. Heart/Mediastinum: Heart size is normal. Bones/joints: No acute osseous abnormalities. IMPRESSION: No acute cardiopulmonary disease. Dictated and Authenticated by: Leanna Garcia MD. Ordering:NICHO Robles MD
[2023-02-05 00:05] LABS: Bilirubin Negative (Negative); Blood Trace-intact (Negative); Clarity Clear (Clear); Glucose Negative (Negative); Ketones Negative (Negative); Leukocyte Esterase Negative (Negative); Nitrite Negative (Negative); Urobilinogen 0.2 mg/dL (Up to 0.2); pH 5.5 (5-8)
[2023-02-05 00:20] LABS: Bacteria Rare HPF (Negative); C & S Indicated? No; Crystals Negative HPF (Negative); Epithelial Cells Rare HPF (Negative); Mucus Negative (Negative); RBC 0-2 HPF (0-2); WBC 0-2 HPF (0-5)
[2023-02-05 02:03] LABS: Troponin I < 50 ng/L (<or=60)
== END 2023-02-05 02:18 | disposition home or self-care (01) ==
PROVIDERS: Emergency Provider Emergency Medicine Emergency Medical Services; PCP Nurse Practitioner Family
DX: R42 Dizziness and giddiness (principal); E87.6 Hypokalemia; R06.02 Shortness of breath; Z95.0 Presence of cardiac pacemaker; Z79.899 Other long term (current) drug therapy
CPT/HCPCS: 80053; 80307; 86850; 86900; 86901; 93005; 96361; 96374; 99283; 71046; 80178; 80320; 81003; 81015; 83735; 84484; 85025; 93010

== ENCOUNTER 2023-04-13 14:40 | Emergency (ER) | payer MEDICARE, MEDICAID, SELFPAY ==
[2023-04-13 14:43] VITALS: BP 112/87; PULSE 96; RESP 18; TEMP 36.2; O2SAT 96
--- OUTSIDE RECORDS SUMMARY | 2023-04-13 14:51 | XMS_ITS | Continuity of Care Document ---
Author Name Unknown Organization [facility] Ambulatory Clinics Address [address] [place] [address] Care Team Providers Care Hair Baler Name Role Phone BELTRAN JHAVERI APRN Primary Care Physician Encounter [facility] NBR [id number] Date(s): 12/05/22 - 12/05/22 [facility] Ambulatory [facility] [address] [place], [place] [address] Encounter Diagnosis Diabetic gastroparesis(Discharge Diagnosis) - 12/05/22 Gastroparesis(Discharge Diagnosis) - 12/05/22 IBS (irritable bowel syndrome)(Discharge Diagnosis) - 12/05/22 GERD - Gastro-esophageal reflux disease(Discharge Diagnosis) - 12/05/22 Family history of colon cancer in father(Discharge Diagnosis) - 12/05/22 Discharge Disposition: Home or Self Care Attending Physician: Travis Lentz MD Referring Physician: BELTRAN JHAVERI APRN Allergies, Adverse Reactions, Alerts Substance Reaction Severity Status sulfa drugs Hives Unknown Active Venom Severe Active Assessment and Plan Future Appointments Functional Status 12/05/22 Other exposure to Infectious Disease Non e Medications Advair HFA 230 mcg-21 mcg/inh inhalation aerosol 2 puffs, Inhale, BID, # 60 EA, 0 Refill(s) Start Date: 11/29/22 Status: Ordered buPROPion 150 mg/24 hours (XL) oral tablet, extended release 150 mg 1 tab, Oral, every 24 hr, # 90 tab, 0 Refill(s) Start Date: 11/29/22 Status: Ordered cetirizine 10 mg oral tablet 10 mg = 1 tab, Oral, Daily, # 90 tab, 0 Refill(s) Start Date: 11/29/22 Status: Ordered clonazePAM 0.5 mg oral tablet 0.5 mg = 1 tab, Oral, Daily, 0 Refill(s) Start Date: 11/29/22 Status: Ordered D3 CAP 2000UNIT D3 CAP 2000UNIT, 0 Refill(s) Start Date: 11/29/22 Status: Ordered dicyclomine 10 mg oral capsule TAKE ONE CAPSULE BY MOUTH TWICE A DAY Start Date: 11/29/22 Status: Ordered docusate sodium 100 mg oral capsule TAKE THREE CAPSULES BY MOUTH EVERY DAY Start Date: 11/29/22 Status: Ordered EPINEPHrine 0.3 mg injectable kit 0.3 mg =, Subcutaneous, Once, # 2 EA, 0 Refill(s) Start Date: 11/29/22 Status: Ordered esomeprazole 40 mg oral delayed release capsule 40 mg = 1 cap, Oral, Daily, # 90 cap, 0 Refill(s) Start Date: 11/29/22 Status: Ordered famotidine 20 mg oral tablet TAKE TWO TABLETS BY MOUTH AT BEDTIME Start Date: 11/29/22 Status: Ordered Januvia 50 mg oral tablet 50 mg 1 tab, Oral, Daily, # 30 tab, 0 Refill(s) Start Date: 11/29/22 Status: Ordered levalbuterol 0.63 mg/3 mL inhalation solution 0.63 mg = 3 mL, NEB, TID, # 24 EA, 0 Refill(s) Start Date: 11/29/22 Status: Ordered Linzess 72 mcg oral capsule 72 mcg = 1 cap, Oral, Daily, do not crush or chew, # 90 cap, 0 Refill(s) Start Date: 11/29/22 Status: Ordered lithium 300 mg oral tablet, extended release 300 mg = 1 tab, Oral, TID, # 90 tab, 0 Refill(s) Start Date: 11/29/22 Status: Ordered loperamide 2 mg oral capsule TAKE TWO CAPSULES BY MOUTH ONCE FOR 1 DOSE; THEN TAKE ONE CAPSULE BY MOUTH AFTER EACH LOOSE STOOL +MAX 8 PER DAY+ Start Date: 11/29/22 Status: Ordered meclizine 25 mg oral tablet 25 mg = 1 tab, Oral, Daily, # 30 tab, 0 Refill(s) Start Date: 11/29/22 Status: Ordered MetFORMIN (Eqv-Glucophage XR) 500 mg oral tablet, extended release TAKE 2 TABLETS BY MOUTH IN THE MORNING AND 1 EVERY DAY AT BEDTIME Start Date: 11/29/22 Status: Ordered midodrine 2.5 mg oral tablet 5 mg = 2 tab, Oral, TID, # 540 tab, 0 Refill(s) Start Date: 11/29/22 Status: Ordered ondansetron 4 mg oral tablet 4 mg = 1 tab, Oral, Once, 0 Refill(s) Start Date: 11/29/22 Status: Ordered ONETOUCH DEL MIS PLUS 30G ONETOUCH DEL MIS PLUS 30G, 0 Refill(s) Start Date: 11/29/22 Status: Ordered Ozempic (1 mg dose) 4 mg/3 mL subcutaneous solution 1 mg =, Subcutaneous, every week, # 3 mL, 0 Refill(s) Start Date: 11/29/22 Status: Ordered PEG-3350 with Electrolytes Lemon (Eqv-GoLYTELY) oral powder for reconstitution STARTING AT 6PM THE NIGHT BEFORE PROCEDURE MIX AND DRINK 8OZ (240ML) EVERY 15 MINUTES UNTIL 3/4 GONE THEN FINISH REMAINDER 5 HOURS BEFORE APPOINTMENT Start Date: 11/29/22 Status: Ordered Potassium Chloride (Eqv-K-Tab) 20 mEq oral tablet, extended release TAKE 1 TABLET BY MOUTH ONCE DAILY Start Date: 11/29/22 Status: Ordered predniSONE 10 mg oral tablet See Instruction, Daily, 4 tabs daily x3 days, 3 tabs daily x3 days, 2 tabs daily x3 days, 1 tab daily x3 days, # 30 tab, 0 Refill(s) Start Date: 11/29/22 Status: Ordered QUEtiapine 200 mg oral tablet 200 mg = 1 tab, Oral, BID, # 60 tab, 0 Refill(s) Start Date: 11/29/22 Status: Ordered Spiriva Respimat 1.25 mcg/inh inhalation aerosol 2 puffs, Inhale, Daily, # 4 g, 0 Refill(s) Start Date: 11/29/22 Status: Ordered traZODone 100 mg oral tablet 100 mg = 1 tab, Oral, TID, # 90 tab, 0 Refill(s) Start Date: 11/29/22 Status: Ordered Problem List Condition Confirmation Course Effective Dates Status H ealth Status Informant Arthritis Confirmed Active Asthma Confirmed Active Back pain Confirmed Active Bipolar 2 disorder Confirmed Active Chest pain Confirmed Active Depression Confirmed Active Dissociative convulsions Confirmed Active DM - Diabetes mellitus type 2 Confirmed Active Family history of colon cancer in father Confirmed Active Gallbladder calculus Confirmed Active Diabetic gastroparesis Confirmed Active Generalized anxiety disorder Confirmed Active GERD - Gastro-esophageal reflux disease Confirmed Active Gestational diabetes Confirmed Active Headache Confirmed Active Heart disease Confirmed Active History of blood transfusion Confirmed Active IBS (irritable bowel syndrome) Confirmed Active Nausea Confirmed Active Shortness of breath Confirmed Active Syncope Confirmed Active Tobacco use Confirmed Active Vertigo Confirmed Active Procedures Procedure Date Related Diagnosis Body Site Status EGD - Esophagogastroduodenoscopy 1 05/27/20 Completed Cholecystectomy Completed Cystoscopy Completed Surgery 2 Completed Surgery 3 Completed TL - Tubal ligation Compl eted 1unable to complete due to large bolus of food 2neck 3back Vital Signs Most recent to oldest [Reference Range]: 1 Apical Heart Rate [60-100 bpm] 81 bpm (12/05/22 1:40 PM) Blood Pressure [90-140/60-90 mmHg] 113/8 2mmHg (12/05/22 1:40 PM) Weight 86.45 kg (12/05/22 1:40 PM) Weight Measured (lbs) 190.589 lb (12/05/22 1:40 PM) Half Way Body Weight Calculated 54.7 kg (12/05/22 1:40 PM) Height 162.56 cm (12/05/22 1:40 PM) Height/Length Measured (inches) 64 inch (12/05/22 1:40 PM) BSA Measured 1.98 m2 (12/05/22 1:40 PM) Body Mass Index 32.71 kg/m2 (12/05/22 1:40 PM) Social History Social History Type Response Tobacco Former tobacco user Tobacco Use:. Sex Physician Outpatient Note * Travis Lentz MD: PERFORM Event Display: Office Clinic Note Physician Authored Date: [id number] MATTIE ARTHUR :1975 Age:47 years Sex:Female Visit Date:12/05/2022 Primary Care Physician: BELTRAN JHAVERI APRN Chief Complaint Establish GI care. History of Present Illness Initial visit for this??47-year-old female with bipolar disorder, on multiple??psychoactive medications,??diabetes complicated by??neuropathy and gastroparesis,??and IBS with mixed features??is referred to establish GI care.?? Previously the patient was under the care of [facility]. ??Her last visit??at [facility]??was 05/04/2021.?? Family history is remarkable for her father??dying from colon cancer??at??55, 3 years after diagnosis.?? 2 paternal uncles??with colorectal cancer. ??The patient has not had a screening colonoscopy. ?? I reviewed the patient's medication list she no longer takes dicyclomine.?? The patient takes Colace 3 times daily,??the patient has not needed loperamide??since??her diarrhea??has significantly improved since stopping metformin.?? The patient was taken off GLP-1 agonists due to worsening nausea.?? Patient had a??gastric emptying scan on 08/04/2020??with a 4-hour??gastric emptying scan??showing??40%??retained gastric contents, normal??should be less than 10%.?? EGD on 05/28/2020??was incomplete due to retained gastric food. ??Z- line appeared regular at 38 cm. ?? Patient reports nausea on a daily basis. ??Her last emesis was??1 week ago. ??She denies hematemesis.?? She moves her bowels 3 times per day Taylor 6-7.?? Currently on Linzess 72 mcg, prior higher??doses??caused watery diarrhea.?? The patient has a history of??fecal impaction and required ER disimpaction??as recently as 2020.?Taylor stool form is 6-7??and is associated with crampy lowerabdominal pain??temporarily relieved by defecation.?? She complains of bloating??which is constant??and worse??after eating.?? She denies black or bloody bowel movements. ??She denies dysphagia. Review of Systems Pertinent positives and negatives are documented in the HPI. Physical Exam Vitals & Measurements HR:??81??(Apical)?? BP:??113/82?? SpO2:??98%?? HT:??162.56??cm?? WT:??86.45??kg?? BMI:??32.71?? BSA:??1.98?? Obese pleasant??white female??in no acute distress Lungs: Clear to auscultation bilaterally Heart: Regular rhythm S1-S2 Abdomen: Normoactive bowel sounds, soft, diffuse tenderness??without peritoneal signs, mass or organomegaly. Assessment/Plan 1.??Diabetic gastroparesis??E11.43 We discussed??the??pathophysiology of??gastroparesis.?? Advised??5 small meals rather than 3 large meals,??dietary fat and fiber.?? We also reviewed??a low FODMAP diet??for her to??try to identify trigger foods??that??exacerbate her bloating??although??her symptoms are likely multifactorial??from documented gastroparesis??as well as??disordered gut brain interaction.?? Continue ondansetron as needed.?? EGD??to exclude??gastric outlet obstruction. Ordered: Surgical Procedure Booking Request LTTL, 12/05/22 14:14:00 EDT, 02/07/23 10:00:00 EST, LTTL Endoscopy, Barretts/colon screen, Diabetic gastroparesis IBS (irritable bowel syndrome) GERD - Gastro-esophageal reflux disease Family history of colon cancer in father, Outpatient, EGD & Colono... ?? 2.??IBS (irritable bowel syndrome)??K58.9 Given history of??fecal impaction,??we would like to keep her stool on the looser side??and may have to??except??her current stool form.?? She may try using??Linzess 72 mcg??every other day??rather than every day.?? Already on multiple psychoactive medications.?? May ultimately require a motility co nsult[facility]??to help optimize??use of neuromodulators. Ordered: Surgical Procedure Booking Request LTTL, 12/05/22 14:14:00 EDT, 02/07/23 10:00:00 EST, LTTL Endoscopy, Barretts/colon screen, Diabetic gastroparesis IBS (irritable bowel syndrome) GERD - Gastro-esophageal reflux disease Family history of colon cancer in father, Outpatient, EGD & Colono... ?? 3.??GERD - Gastro-esophageal reflux disease??K21.9 No evidence of esophageal injury??at her last EGD??2 years ago. Ordered: Surgical Procedure Booking Request LTTL, 12/05/22 14:14:00 EDT, 02/07/23 10:00:00 EST, LTTL Endoscopy, Barretts/colon screen, Diabetic gastroparesis IBS (irritable bowel syndrome) GERD - Gastro-esophageal reflux disease Family history of colon cancer in father, Outpatient, EGD & Colono... ?? 4.??Family history of colon cancer in father??Z80.0 Patient is increased risk for colorectal cancer??based on her paternal family history??which is suspicious for Boudreaux syndrome. ??Schedule colonoscopy.?? Patient will return to clinic 2 weeks post procedure. Ordered: Surgical Procedure Booking Request LTTL, 12/05/22 14:14:00 EDT, 02/07/23 10:00:00 EST, LTTL Endoscopy, Barretts/colon screen, Diabetic gastroparesis IBS (irritable bowel syndrome) GERD - Gastro-esophageal reflux disease Family history of colon cancer in father, Outpatient, EGD & Colono... ?? Gastroparesis??K31.84 ?? Problem List/Past Medical History Ongoing Arthritis Asthma Back pain Bipolar 2 disorder Chest pain Depression Diabetic gastroparesis Dissociative convulsions DM - Diabetes mellitus type 2 Family history of colon cancer in father Gallbladder calculus Generalized anxiety disorder GERD - Gastro-esophageal reflux disease Gestational diabetes Headache Heart disease History of blood transfusion IBS (irritable bowel syndrome) Nausea Shortness of breath Syncope Tobacco use Vertigo Historical No qualifying data Procedure/Surgical History ???EGD - Esophagogastroduodenoscopy (05/28/2020)???Cholecystectomy???Cystoscopy???Surgery???Surgery???TL - Tubal ligation Medications Advair HFA 230 mcg-21 mcg/inh inhalation aerosol, 2 puffs, Inhale, BID buPROPion 150 mg/24 hours (XL) oral tablet, extended release, 150 mg= 1 tab, Oral, every 24 hr cetirizine 10 mg oral tablet, 10 mg= 1 tab, Oral, Daily clonazePAM 0.5 mg oral tablet, 0.5 mg= 1 tab, Oral, Daily D3 CAP 2000UNIT dicyclomine 10 mg oral capsule docusate sodium 100 mg oral capsule EPINEPHrine 0.3 mg injectable kit, 0.3 mg, Subcutaneous, Once esomeprazole 40 mg oral delayed release capsule, 40 mg= 1 cap, Oral, Daily famotidine 20 mg oral tablet Januvia 50 mg oral tablet, 50 mg= 1 tab, Oral, Daily levalbuterol 0.63 mg/3 mL inhalation solution, 0.63 mg= 3 mL, NEB, TID Linzess 72 mcg oral capsule, 72 mcg= 1 cap, Oral, Daily lithium 300 mg oral tablet, extended release, 300 mg= 1 tab, Oral, TID loperamide 2 mg oral capsule meclizine 25 mg oral tablet, 25 mg= 1 tab, Oral, Daily MetFORMIN (Eqv-Glucophage XR) 500 mg oral tablet, extended release midodrine 2.5 mg oral tablet, 5 mg= 2 tab, Oral, TID ondansetron 4 mg oral tablet, 4 mg= 1 tab, Oral, Once ONETOUCH DEL MIS PLUS 30G Ozempic (1 mg dose) 4 mg/3 mL subcutaneous solution, 1 mg, Subcutaneous, every week PEG-3350 with Electrolytes Lemon (Eqv-GoLYTELY) oral powder for reconstitution Potassium Chloride (Eqv-K-Tab) 20 mEq oral tablet, extended release predniSONE 10 mg oral tablet, See Instruction, Daily QUEtiapine 200 mg oral tablet, 200 mg= 1 tab, Oral, BID Spiriva Respimat 1.25 mcg/inh inhalation aerosol, 2 puffs, Inhale, Daily traZODone 100 mg oral tablet, 100 mg= 1 tab, Oral, TID Allergies Venom sulfa drugs??(Hives) Social History Alcohol Never Electronic Cigarette/Vaping Electronic Cigarette Use: Never. Substance Use Never Tobacco Former tobacco user Tobacco Use:. Family History Family history is unknown Electronically Signed on 12/05/22 02:16 PM Travis Lentz MD Patient Care team information Care Team Personnel Name: BELTRAN JHAVERI APRN Position: No Access Member Role: Primary Care Physician Address: Address: [address] [place] [address]- [place]
--- NOTE | 2023-04-13 15:21 | W.ED.GENAD ---
HPI General Stated Complaint: Nausea/Vomit/Diar Mode of arrival: ambulatory. MIKE: 3 Date/Time Provider Initiated Documentation: 04/13/23 14:42. Limitations to Documentation: no limitations. Information obtained by: patient. History of Present Illness n/v/d moderate day(s) (1) intermittent No relieving factors improve symptom(s), No exacerbating factors reported no other symptoms.; denies chest pain, fever/chills and shortness of breath none Related Data Home Medications Medication Instructions Recorded Confirmed ibuprofen 200 mg tablet (IBU-200) 600 mg (3 x 200 mg) PO Q6H PRN 03/31/19 04/13/23 pain #90 tabs cholecalciferol (vitamin D3) 50 50 mcg PO DAILY 02/14/21 04/13/23 mcg (2,000 unit) capsule famotidine 20 mg tablet 20 mg PO BID 02/14/21 04/13/23 linaclotide 290 mcg capsule 290 mcg PO DAILY 02/14/21 04/13/23 (Linzess) meclizine 25 mg tablet 12.5 mg PO TID PRN dizziness 02/14/21 04/13/23 escitalopram oxalate 20 mg tablet 20 mg PO DAILY AM 11/12/21 04/13/23 midodrine 2.5 mg tablet 2 tab PO TID 11/12/21 04/13/23 potassium chloride 20 mEq 20 tab PO DAILY AM 11/12/21 04/13/23 tablet,extended release lithium carbonate 300 mg 1 tab PO DAILY 03/19/22 04/13/23 tablet,extended release tiotropium bromide 1.25 2 spray inhalation BID 03/19/22 04/13/23 mcg/actuation mist for inhalation (Spiriva Respimat) bupropion HCl 300 mg 24 hr tablet, 150 mg PO DAILY 09/13/22 04/13/23 extended release docusate sodium 100 mg capsule 100 mg PO DAILY 09/13/22 04/13/23 esomeprazole magnesium 40 mg 40 mg PO DAILY 09/13/22 04/13/23 capsule,delayed release fluticasone 100 mcg-salmeterol 50 2 inh inhalation BID 09/13/22 04/13/23 mcg/dose blistr powdr for inhalation (Advair Diskus) sitagliptin phosphate 50 mg tablet 50 mg PO DAILY 01/09/23 04/13/23 (Januvia) ondansetron 4 mg disintegrating 4 mg PO Q8H PRN nausea and 04/13/23 tablet vomiting #30 tabs Previous Rx's Medication Instructions Recorded ibuprofen 200 mg tablet (IBU-200) 600 mg (3 x 200 mg) PO Q6H PRN 03/31/19 pain #90 tabs ondansetron 4 mg disintegrating 4 mg PO Q8H PRN nausea and 04/13/23 tablet vomiting #30 tabs Allergies Allergy/AdvReac Type Severity Reaction Status Date / Time venom-honey bee Allergy Severe Verified 04/13/23 14:47 Sulfa (Sulfonamide Allergy HIVES Verified 04/13/23 14:47 Antibiotics) Review of Systems All systems reviewed & are unremarkable except as noted in HPI and below Constitutional Constitutional: Denies chills, Denies fever(s) and Denies weakness Cardiovascular Cardiovascular: Denies chest pain and Denies dyspnea Respiratory Respiratory: Denies cough and Denies dyspnea Gastrointestinal Gastrointestinal: Denies abdominal pain, Reports diarrhea, Reports nausea and Reports vomiting Musculoskeletal Musculoskeletal: Denies joint swelling Integumentary/Breasts Skin/Breast: Denies rash Neurologic Neurologic: Denies weakness PFSH All Active Problems (Updated 04/13/23 @ 16:40 by Chadwick Wan MD) Nausea vomiting and diarrhea (Acute) Tinea pedis (Acute) Onychomycosis (Acute) PVD (peripheral vascular disease) (Chronic) Type 2 diabetes mellitus with peripheral neuropathy (Acute) Nail dystrophy (Acute) Type 2 diabetes mellitus (Acute) Shortness of breath (Acute) Muscle pain (Acute) Atypical chest pain (Acute) Calculus of gallbladder with chronic cholecystitis without obstruction (Acute) Gallstones without obstruction of gallbladder (Acute) GERD (gastroesophageal reflux disease) (Chronic) Nausea and vomiting in adult (Acute) Abnormal CT of the abdomen (Acute) N&V (nausea and vomiting) (Acute) RLQ abdominal tenderness (Acute) Pre-syncope (Acute) Discharge planning issues (Acute) DVT prophylaxis (Acute) Nonspecific paroxysmal spell (Acute) Dizziness (Acute) Vertigo (Acute) Bradycardia (Acute) Near syncope (Acute) Dehydration (Acute) Syncope (Chronic) Hypomagnesemia (Acute) Right lower quadrant abdominal pain (Acute) Gastroesophageal reflux disease (Chronic) Asthma (Chronic) Depression (Chronic) Takes Fluoxetine 20mg QD with good impact on her depression, denies any SI. Encouraged to continue. to try to tame a hoiurde. Medical History Acne (04/21/13) Back pain Taking prednisone 60mg QD for 4 days. Currently on day 2. Not feeling it is making much of a difference but she was encouraged to take for the full 4 days. Also suggested she take the muscle relaxer only PRN as it makes her quite drowsy. Encouraged to take at night. To help with rest. Other valenzuela, suggested she increse Aleve to AM & PM dose, then supplement with 1000mg Acetaminophen every 4-6 hours up to a total of 4000mg/day. Suggested ice might help more than heat but either should be limited to only 20 minutes at a time. Use topicals (Solopas Gel or Aspercreame with Lidocaine seem to be quite helpful. Try to avoid sitting or standing still for prolonged periods of time. Walking on flat ground is encourage. Gestational diabetes mellitus High ankle sprain of right lower extremity Pacemaker Tobacco use (10/15/14) quit 01/2016 Surgical History ANAL SURGERY surgical drainage of anal fissure Dilation and curettage X 2 with losses discectomy (~2003) Endometrial Ablation (~2009) History of bilateral ligation of fallopian tubes History of cholecystectomy (~03/2019) History of discectomy History of esophagogastroduodenoscopy (EGD) (~01/2019) History of hysterectomy Ligation of fallopian tube S/P endometrial ablation irregular bleeding has restarted, neg EM bx 01/2016 Status post dilation and curettage Family History Mother Hyperlipidemia Thyroid disorder Father Essential hypertension Diabetes Personal history of malignant neoplasm prostate Heart disease Hyperlipidemia Myocardial infarction Social History Smoking/Tobacco Use Status: Current every day Tobacco Type: cigarettes and e-cigarettes Tobacco: How many years used: 20 Smoking risk assessment performed?: Yes Alcohol Intake: current Alcohol Intake frequency: holidays/special occasions only Drug use: Never Substance use type: does not use Household members: family and other Details: Lives with demented mother and her brother Housing: apartment current occupation: [employer]; [employer]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 Course Vital Signs Vital signs: Vital Signs Temperature 36.2 C L 04/13/23 14:43 Pulse 96 H 04/13/23 14:43 Respiratory Rate 18 04/13/23 14:43 Blood Pressure 112/87 04/13/23 14:43 Pulse Oximetry 96 04/13/23 14:43 Temperature 36.2 C L 04/13/23 14:43 Pulse 96 H 04/13/23 14:43 Respiratory Rate 18 04/13/23 14:43 Blood Pressure 112/87 04/13/23 14:43 Pulse Oximetry 96 04/13/23 14:43 Medical Decision Making 47 yo female with hx depression, asthma, gerd, t2dm, who comes in with n/v/d since last night. Denies fevers, travel, known sick contacts. She is caox4 on arrival with stable vitals. Has a soft nontender abdomen on exam. Suspect food related illness vs gastroenteritis, doubt surgical pathology given lack of abdominal tenderness. Will check cbc, cmp, lipase and treat with iv fluids and droperidol and reassess. pt feels better, no abdominal tenderness, labs unremarkable, tolerating po. Suspect food illness vs viral gastroenteritis. She is stable for d/c, advised to f/u with pcp next week and return precautions given Differential Diagnosis Differential Diagnosis: food related illness, gastroenteritis Medical Records Medical records reviewed: Yes I reviewed the patient's medical records. Lab Data Lab results reviewed: Yes I reviewed the patient's lab results. Quality:[facility] Health Related Social Needs: No Data to Display Discharge Plan Disposition Patient Disposition: Home Condition: Stable Discharge Details Clinical Impression: Nausea vomiting and diarrhea Primary Care Provider: BELTRAN JHAVERI ED Provider: Chadwick Wan Home Meds and New Rx's Prescriptions: New ondansetron 4 mg tablet,disintegrating 4 mg PO Q8H PRN (Reason: nausea and vomiting) Qty: 30 0RF Continued Januvia 50 mg tablet 50 mg PO DAILY docusate sodium 100 mg capsule 100 mg PO DAILY esomeprazole magnesium 40 mg capsule,delayed release(DR/EC) 40 mg PO DAILY fluticasone propion-salmeterol [Advair Diskus] 100-50 mcg/dose blister with device 2 inh inhalation BID Rx Instructions: pt reported - dose unverified. ibuprofen [IBU-200] 200 mg tablet 600 mg PO Q6H PRN (Reason: pain) Qty: 90 2RF Rx Instructions: take w/ carafate. do not take on an empty stomach lithium carbonate 300 mg tablet extended release 1 tab PO DAILY Patient Comments: TAKE 1 TABLET BY MOUTH IN THE EVENING Spiriva Respimat 1.25 mcg/actuation mist 2 spray INHALATION BID Patient Comments: INHALE 2 SPRAY(S) BY MOUTH IN THE MORNING famotidine 20 mg tablet 20 mg PO BID cholecalciferol (vitamin D3) 50 mcg (2,000 unit) capsule 50 mcg PO DAILY Patient Comments: TAKE TWO CAPSULES BY MOUTH EVERY DAY Linzess 290 mcg capsule 290 mcg PO DAILY meclizine 25 mg tablet 12.5 mg PO TID PRN (Reason: dizziness) bupropion HCl 300 mg tablet extended release 24 hr 150 mg PO DAILY escitalopram oxalate 20 mg tablet 20 mg PO DAILY AM Patient Comments: TAKE 1 TABLET BY MOUTH ONCE DAILY midodrine 2.5 mg tablet 2 tab PO TID Patient Comments: TAKE 2 TABLETS BY MOUTH THREE TIMES DAILY potassium chloride 20 mEq tablet extended release 20 tab PO DAILY AM Patient Comments: TAKE 1 TABLET BY MOUTH ONCE DAILY Discharge Instructions Instructions: Acute Nausea and Vomiting (ED) Additional Instructions: follow up with your primary care provider this week if symptoms continue if you feel more ill, have persistent vomiting despite the nausea medication, or have severe abdominal pain return to the emergency department
[2023-04-13] MEDS: Normal Saline 1,000 ML 1000 ML IV (15:29)
[2023-04-13] MEDS: Droperidol 5 MG/2 ML VIAL 2.5 MG IVP (15:29)
[2023-04-13 15:57] LABS: Abs Immature Grans 0.03 10^3/uL (0.0-0.06); Absolute Basophil Count 0.02 10^3/uL (0.0-0.2); Absolute Eosinophil Count 0.11 10^3/uL (0.0-0.7); Absolute Lymphocyte Count 1.78 10^3/uL (1.2-3.4); Absolute Monocyte Count 0.55 10^3/uL (0.1-0.8); Basophils % 0.3; Eosinophils % 1.5; HCT 39.4 % (36.0-46.0); HGB 12.7 g/dL (11.2-15.7); Immature Grans % 0.4; Lymphocytes % 24.4; MCH 26.2 pg (27.0-33.0); MCHC 32.2 % (32.0-36.0); MCV 81 fL (80-95); Monocytes % 7.5; Neutrophils % 65.9; RBC 4.84 10^6/uL (3.93-5.22); RDW 14.1 % (11.7-14.6); RDW-SD 41.5 fL; WBC 7.29 10^3/uL (4.4-10.8)
[2023-04-13 16:00] LABS: Magnesium 2.6 mg/dL (1.8-2.4)
[2023-04-13 16:03] LABS: ALT 24 U/L (14-59); AST 26 U/L (15-37); Albumin 3.6 g/dL (3.4-5.0); Alkaline Phosphatase 105 U/L (46-116); Anion Gap 8.1 mmol/L (3-11); BUN 8 mg/dL (7-18); Bilirubin, Total 0.5 mg/dL (0.2-1.0); CO2 27.9 mmol/L (21.0-32.0); Calcium 9.2 mg/dL (8.5-10.1); Chloride 103 mmol/L (98-107); Estimated GFR 69.49 (mL/min/1.73m2); Glucose 137 mg/dL (74-106); Lipase 56 U/L (16-77); Potassium 3.2 mmol/L (3.5-5.1); Sodium 139 mmol/L (136-145); Total Protein 7.4 g/dL (6.4-8.2)
[2023-04-13 16:10] LABS: Diff Comment PLT Morph Reviewed; RBC Morphology Normal
== END 2023-04-13 16:56 | disposition home or self-care (01) ==
PROVIDERS: Emergency Provider Emergency Medicine; PCP Nurse Practitioner Family
DX: R11.2 Nausea with vomiting, unspecified (principal); R19.7 Diarrhea, unspecified; E11.9 Type 2 diabetes mellitus without complications; F17.210 Nicotine dependence, cigarettes, uncomplicated; F17.290 Nicotine dependence, other tobacco product, uncomplicated
CPT/HCPCS: 80053; 83690; 96361; 96374; 99283; 83735; 85025; 99284; J1790

== ENCOUNTER → 2023-05-22 04:27 | Outpatient (CLI) | payer MEDICARE, MEDICAID, SELFPAY ==
--- NOTE | 2023-05-22 | DI.US_ITS ---
Exam(s) US RENAL EXAM: US RENAL CLINICAL HISTORY: URINARY INCONTINENCE,R32 TECHNIQUE: Ultrasound of both kidneys performed using standard protocol. COMPARISON: US US ABDOMEN from 03/19/[address] ABDOMEN PELVIS W from 09/02/[address] RENAL COLIC WO from 09/30/2022 FINDINGS: RIGHT KIDNEY: Measures 9.4 cm in length. There is a benign-appearing cyst in the lower pole region of the right kid mari measuring 3.2 x 2.6 x 2.0 cm, corresponding to what was seen on recent noninfused CT scan. Katlyn l cortical thickness and corticomedullary differentiation .No solid masses No intrarenal calculi nor hydronephrosis. LEFT KIDNEY: Measures 9.9 cm in length. No cysts evident. Normal cortical thickness and corticomedullary differen tiaion. No solids masses. No intrarenal calculi nor hydonephrosis. URINARY BLADDER: Prevoid volume is 160 cc Postvoid volume is there are 0 cc No evidence of bladder mass nor diverticuli. Ureterovesical jets: Both identified and appear symmetrical IMPRESSION: 1. Solitary benign 3.2 x 2.6 x 2.0 cm cyst in the right ovary, this corresponding to the finding on prior CT scan. No other focal renal findings. DATA REPOSITORY:
--- OUTSIDE RECORDS SUMMARY | 2023-05-22 04:29 | XMS_ITS | Continuity of Care Document ---
Author Name Unknown Organization [facility] Address [address] [place] [address] Care Team Providers Care Probation Manager Name Role Phone BELTRAN JHAVERI APRN Primary Care Physician [phone] Encounter [facility] NBR [id number] Date(s): 04/26/23 - 04/26/23 [facility] [address] [place] [address]- [place] Discharge Disposition: Home Allergies, Adverse Reactions, Alerts Substance Reaction Severity Status sulfa drugs Hives Mild Active Venom 1 Anaphylactic reaction Severe Active 1bee venom Medications Advair HFA 230 mcg-21 mcg/inh inhalation [...] 0.5 mg = 1 tab, Oral, Daily, PRN anxiety, 0 Refill(s) Start Date: 11/29/22 Status: Ordered D3 CAP 2000UNIT D3 CAP 2000UNIT, 0 Refill(s) Start Date: 11/29/22 Status: Ordered docusate sodium 100 mg oral capsule TAKE THREE CAPSULES BY MOUTH EVERY DAY Start Date: 11/29/22 Status: Ordered EPINEPHrine 0.3 mg injectable kit 0.3 mg =, Subcutaneous, Once, # 2 EA, 0 Refill(s) Start Date: 11/29/22 Status: Ordered escitalopram 20 mg oral tablet TAKE ONE TABLET BY MOUTH EVERY DAY Start Date: 02/05/23 Status: Ordered esomeprazole 40 mg oral delayed release capsule 40 mg = 1 cap, Oral, Daily, # 90 cap, 0 Refill(s) Start Date: 11/29/22 Status: Ordered famotidine 20 mg oral tablet TAKE TWO TABLETS BY MOUTH AT BEDTIME Start Date: 11/29/22 Status: Ordered Invokana 100 mg oral tablet TAKE ONE TABLET BY MOUTH EVERY DAY Start Date: 02/05/23 Status: Ordered Januvia 50 mg oral tablet [...] release 300 mg = 1 tab, Oral, Daily, # [...] 0 Refill(s) Start Date: 11/29/22 Status: Ordered midodrine 2.5 mg oral tablet 5 mg = 2 tab, Oral, TID, # 540 tab, 0 Refill(s) Start Date: 11/29/22 Status: Ordered ondansetron 4 mg oral tablet 4 mg = 1 tab, Oral, Once, 0 Refill(s) Start Date: 11/29/22 Status: Ordered ONETOUCH DEL MIS PLUS 30G ONETOUCH DEL MIS PLUS 30G, 0 Refill(s) Start Date: 11/29/22 Status: Ordered Potassium Chloride (Eqv-K-Tab) 20 mEq oral tablet, extended release TAKE 1 TABLET BY MOUTH ONCE DAILY Start Date: 11/29/22 Status: Ordered QUEtiapine 300 mg oral tablet 300 mg = 1 tab, Oral, BID, # 30 tab, 0 Refill(s) Start Date: 02/05/23 Status: Ordered Spiriva Respimat 10 ACT 2.5 mcg/inh inhalation aerosol 2 puffs, Inhale, Daily, # 4 g, 0 Refill(s) Start Date: 02/05/23 Status: Ordered Problem List Condition Confirmation Course [...] to large bolus of food 2neck 3back Social History Social History Type Response Tobacco Former tobacco user Tobacco Use:. Sex Patient Care team information Care Team Personnel Name: BELTRAN JHAVERI APRN Position: No Access Member Role: Primary Care Physician Address: Address: [address] [place], [place] [address] [[email or web address]]
== END ==
PROVIDERS: PCP Nurse Practitioner Family; Visit Provider Nurse Practitioner Family
DX: R32 Unspecified urinary incontinence (principal); N83.291 Other ovarian cyst, right side
CPT/HCPCS: 76770

== ENCOUNTER → 2023-07-05 14:50 | Outpatient (BNVA) | payer MEDICARE, MEDICAID, SELFPAY | PROVIDERS: PCP Nurse Practitioner Family; Referring Provider Nurse Practitioner Family; Visit Provider Nurse Practitioner Gerontology | DX: N39.46 Mixed incontinence (principal) | CPT/HCPCS: 81003; 99215 ==

== ENCOUNTER 2023-07-14 20:45 | Emergency (ER) | payer MEDICARE, MEDICAID, SELFPAY ==
--- NOTE | 2023-07-14 21:00 | DI.RAD_ITS ---
Exam(s) XR CHEST 1V IN DI DEPT EXAM: XR CHEST 1V IN DI DEPT CLINICAL HISTORY: Chest pain TECHNIQUE: 2D digital imaging was performed of the chest. One image was obtained. An AP view was ob tained. COMPARISON: CR,XR XR CHEST 2V PA LATERAL from 02/04/2023 FINDINGS: MEDIASTINUM: Normal. HEART: Normal. PULMONARY VASCULATURE: Normal. LUNGS: Clear. PLEURAL SPACE: No pleural effusion or pneumothorax. BONE:Within normal limits for the patient's age. OTHER FINDINGS:There is a cardiac monitoring device again seen. IMPRESSION: No acute pulmonary findings. DATA REPOSITORY: RADIATION DOSE DELIVERED:
--- NOTE | 2023-07-14 21:00 | RT.EKG_ITS ---
APPROVED REPORT Exam: Resting ECG Reason for Exam: Chest pain Patient Location: E HR:71 bpm ECG Measurements Heart Rate 71 AXIS CA 140 P 57 QRSd 88 QRS 21 QT 397 T 31 QTc 432 Conclusion Sinus rhythm...normal P axis, V-rate 60- 99 Narrow complex normal sinus rhythm at a rate of 71. Normal axis. Intervals within normal limits. N o ST segment abnormalities. No T wave inversions. Appears similar compared to prior dated last year . No acute injury pattern.
[2023-07-14 21:01] VITALS: BP 115/77; PULSE 83; RESP 18; TEMP 36.8; O2SAT 97
[2023-07-14 21:05] VITALS: RESP 18
--- NOTE | 2023-07-14 21:18 | ED.GENADUL_ITS ---
Discharge Plan Disposition Patient Disposition: Home Discharge Details Clinical Impression: Chest pain, unspecified Primary Care Provider: BELTRAN JHAVERI ED Provider: Valdez Song Butler Meds and New Rx's Prescriptions: Continued Januvia 50 mg tablet 50 mg PO DAILY docusate sodium 100 mg capsule 100 mg PO DAILY esomeprazole magnesium 40 mg capsule,delayed release(DR/EC) 40 mg PO DAILY fluticasone propion-salmeterol [Advair HFA] 230-21 mcg/actuation HFA aerosol inhaler 2 puff inhalation BID albuterol sulfate 90 mcg/actuation HFA aerosol inhaler 2 puff inhalation Q6H PRN bupropion HCl 300 mg tablet extended release 24 hr 300 mg PO QAM cetirizine 10 mg tablet 10 mg PO DAILY PRN clonazepam 0.5 mg tablet 0.5 mg PO DAILY PRN dicyclomine 10 mg capsule 10 mg PO BID epinephrine 0.3 mg/0.3 mL auto-injector 0.3 mg IM ONCE Rx Instructions: as a single dose; may repeat once fluticasone propionate 100 mcg/actuation blister with device 1 inh inhalation BID ketoconazole 2 % cream 1 applic topical DAILY potassium chloride [Klor-Con] 20 mEq packet 20 meq PO DAILY lactulose 10 gram/15 mL solution 10 g PO DAILY Linzess 72 mcg capsule 72 mcg PO DAILY loperamide 2 mg capsule 2 mg PO Q6H PRN metformin 500 mg tablet extended release 24 hr 500 mg PO BID Rx Instructions: 2 tabs in the am and one a hs per pcp mupirocin 2 % ointment 1 applic topical BID quetiapine 300 mg tablet 300 mg PO QHS Spiriva Respimat 1.25 mcg/actuation mist 2 puff inhalation DAILY sumatriptan succinate 50 mg tablet See Rx Instructions PO .COMPLEX Rx Instructions: take 1 tab at onset of headache; if no relief may repeat 1 tab after at least 2 hrs; max = 4 tabs/24 hr PO Invokana 100 mg tablet 100 mg PO DAILY lithium carbonate 300 mg tablet extended release 1 tab PO DAILY Patient Comments: TAKE 1 TABLET BY MOUTH IN THE EVENING ondansetron 4 mg tablet,disintegrating 4 mg PO Q8H PRN (Reason: nausea and vomiting) Qty: 30 0RF famotidine 20 mg tablet 20 mg PO BID cholecalciferol (vitamin D3) 50 mcg (2,000 unit) capsule 50 mcg PO DAILY Patient Comments: TAKE TWO CAPSULES BY MOUTH EVERY DAY Linzess 290 mcg capsule 290 mcg PO DAILY bupropion HCl 300 mg tablet extended release 24 hr 150 mg PO DAILY escitalopram oxalate 20 mg tablet 20 mg PO DAILY AM Patient Comments: TAKE 1 TABLET BY MOUTH ONCE DAILY midodrine 2.5 mg tablet 2 tab PO TID Patient Comments: TAKE 2 TABLETS BY MOUTH THREE TIMES DAILY Discharge Instructions Instructions: Chest Pain (ED) Additional Instructions: You are seen in the emergency department for your chest pain. Your blood work and EKG showed no sign of any heart attacks. Your lab work showed no sign of any diabetic emergencies. Please follow-up with your primary care provider next week. Please return to the emergency department as we discussed if you develop shortness of breath chest pain that causes you to pass out or if you have any other concerns. Discharge Data Discharge Date/Time-TO BE ENTERED AT DEPARTURE: 07/14/23 22:58 HPI General Date/Time Provider Initiated Documentation: 07/14/23 20:58 . HPI Narrative: MDM This is an overall well-appearing normothermic and not tachycardic diabetic female with chest pain and hyperglycemia concerning for possibility of ACS fan diana DKA versus acute electrolyte abnormalities. Will obtain ECG and single troponin based on duration of time since symptoms began greater than 3 hours. I considered posterior circulation CVA however the patient is neurologically intact and lacks nystagmus so I did not apply the hints exam. Given her hyperglycemia this certainly could have caused dizziness. No history of head strike to suggest increased risk for intracranial hemorrhage. No chiropractic manipulation to suggest cervical arterial dissection. No dysuria no frequency so doubt UTI. No routine ethanol to suggest increased risk for ethanol withdrawal. No trauma to chest to suggest pneumothorax however patient does have a loop recorder so we will obtain a chest x-ray to assess for any acute abnormalities. Not hypotensive nor dialysis patient so doubt tamponade. No rash to chest to suggest zoster. Patient does have congestion but no abnormal lung sounds to suggest pneumothorax. No history of emesis to suggest increased risk for esophageal rupture. No tearing quality to suggest aortic dissection. No right upper quadrant tenderness to suggest acute cholecystitis. No epigastric tenderness to suggest pancreatitis. No positional component to suggest pericarditis. Given congestion will swab for COVID influenza RSV. I considered PE however the patient is not short of breath and not having calf pain. Furthermore she is PERC negative so I did not send a D-dimer. 10 PM Basic metabolic panel showing no YESSI. No hyperglycemia. No acute electrolyte abnormalities. No anion gap. Not consistent with DKA. Negative serum hCG. Negative troponin. Normal reassuring magnesium. CBC with leukocytosis worse compared to prior. No anemia. No thrombocytopenia. Urinalysis with glucosuria but nitrite negative and no ketonuria not consistent with UTI nor DKA. 10:36 PM Preliminary read on chest x-ray showing no acute findings. I met with the patient and explained her reassuring evaluation. I advised ED return for any syncope chest pain associated with shortness of breath dysuria or frequency. Patient understood her return indications and was discharged with empiric trial of expectant outpatient management. Respiratory viral panel negative for COVID influenza RSV. HEART SCORE Chest pain Diagnostic Protocol: [-History/Physical/Gestalt: Slightly Suspicious (0)] [-EKG: Normal and/or unchanged from prior EKG (0)] [- AGE: 45-65 (+1)] [- RISK FACTORS: 3 or more risk factors and/or known CAD (+2)] [-TROPONIN: <= normal limit (0)] - TOTAL SCORE: 3 - Risk Factors: DM, current or recent smoker, HTN, HLD, family hx of CAD, obesity - INTERPRETATION: With a total score of 3 or less, risk of major cardiac event within six weeks 1.7%, likely lower with two negative troponins. [I explained to the patient that the risk of subsequent major cardiac event within 1 month is not 0, however risk predicted to be less than 2%. Patient verbalized understanding, accepts this risk and shared and the decision for discharge with PCP follow-up for further evaluation and management. They understand to return to the ED immediately with any worsening symptoms, new symptoms or other concerns.] Chronic conditions affecting the care of the patient: Diabetes peripheral vascular disease History obtained from an outside historian: N/A External record review: [facility] [facility] [Diagnostic interpretations performed by me: Per my independent interpretation chest x-ray shows: No acute cardiopulmonary process Per my independent interpretation EKG shows: Narrow complex normal sinus rhythm at a rate of 71. Normal axis. Intervals within normal limits. No ST segment abnormalities. No T wave inversions. Appears similar compared to prior dated last year. No acute injury pattern. ]Medications: N/A Social determinants of health affecting disposition: N/A Management discussed with: N/A Treatment/interventions considered: N/A Response to therapies provided: Mildly improved symptoms in the ED HPI This is a 48-year-old diabetic with a history of peripheral vascular disease arriving to the emergency department via private vehicle in the setting of chest pain and elevated blood sugar. Patient reports that for the past 3 to 4 hours she has had central chest pain which feels like a tightness. She also notes that it feels similar to her prior episodes of indigestion. She has a loop recorder in place. She has been intermittently dizzy today. She notes her blood sugar has been in the 200s for the past several days. She denies fevers dysuria frequency syncope. She vapes tobacco but denies routine alcohol and illicits. She has been congestion but not had any rhinorrhea. No cough. Family history significant for an [place] in the patient's father when he was in his 40s. Patient denies syncope. Patient denies hyperlipidemia and hypertension. Exam General: Well-appearing in no acute distress speaking in complete sentences. Head: Normocephalic, atraumatic. Eye:[Pupils equal, round reactive to light.] Extraocular eye movements intact. No conjunctival injection. No scleral icterus. Ear, nose, mouth, throat: Grossly normal inspection. Normal voice, handling secretions normally. Neck: Trachea midline. Cardiovascular: Well-perfused distal extremities. Regular rate and rhythm. Respiratory: Nonlabored respiration. Clear lungs bilaterally. Gastrointestinal: Nondistended abdomen. Soft nontender. Musculoskeletal: No significant lower extremity pitting edema. Moving all 4 extremities spontaneously. Skin: Normal for age and race, grossly normal temperature and turgor. No acute rash. Neurologic: Alert and appropriate, no apparent acute deficits. GCS 15. Moving all 4 extremities spontaneously. No focal weakness. Cranial nerves II through XII intact grossly. Psychiatric: Mood and manner are appropriate. Grooming and personal hygiene are appropriate. Related Data Home Medications Medication Instructions Recorded Confirmed cholecalciferol (vitamin D3) 50 50 mcg PO DAILY 02/14/21 04/13/23 mcg (2,000 unit) capsule famotidine 20 mg tablet 20 mg PO BID 02/14/21 04/13/23 linaclotide 290 mcg capsule 290 mcg PO DAILY 02/14/21 04/13/23 (Magizess) escitalopram oxalate 20 mg tablet 20 mg PO DAILY AM 11/12/21 04/13/23 midodrine 2.5 mg tablet 2 tab PO TID 11/12/21 04/13/23 lithium carbonate 300 mg 1 tab PO DAILY 03/19/22 04/13/23 tablet,extended release bupropion HCl 300 mg 24 hr tablet, 150 mg PO DAILY 09/13/22 04/13/23 extended release docusate sodium 100 mg capsule 100 mg PO DAILY 09/13/22 04/13/23 esomeprazole magnesium 40 mg 40 mg PO DAILY 09/13/22 04/13/23 capsule,delayed release sitagliptin phosphate 50 mg tablet 50 mg PO DAILY 01/09/23 04/13/23 (Jacquiia) ondansetron 4 mg disintegrating 4 mg PO Q8H PRN nausea and 04/13/23 tablet vomiting #30 tabs albuterol sulfate 90 mcg/actuation 2 puff inhalation Q6H PRN 05/01/23 aerosol inhaler bupropion HCl 300 mg 24 hr tablet, 300 mg PO QAM 05/01/23 extended release cetirizine 10 mg tablet 10 mg PO DAILY PRN 05/01/23 clonazepam 0.5 mg tablet 0.5 mg PO DAILY PRN 05/01/23 dicyclomine 10 mg capsule 10 mg PO BID 05/01/23 epinephrine 0.3 mg/0.3 mL 0.3 mg IM ONCE 05/01/23 injection, auto-injector fluticasone propionate 100 1 inh inhalation BID 05/01/23 mcg/actuation blister powder for inhalation fluticasone propionate 230 2 puff inhalation BID 05/01/23 mcg-salmeterol 21 mcg/actuation HFA inhaler (Advair HFA) ketoconazole 2 % topical cream 1 applic topical DAILY 05/01/23 lactulose 10 gram/15 mL oral 10 g PO DAILY 05/01/23 solution linaclotide 72 mcg capsule 72 mcg PO DAILY 05/01/23 (Linzess) loperamide 2 mg capsule 2 mg PO Q6H PRN 05/01/23 metformin 500 mg tablet,extended 500 mg PO BID 05/01/23 release 24 hr mupirocin 2 % topical ointment 1 applic topical BID 05/01/23 potassium chloride 20 mEq oral 20 meq PO DAILY 05/01/23 packet (Klor-Con) quetiapine 300 mg tablet 300 mg PO QHS 05/01/23 sumatriptan succinate 50 mg tablet See Rx Instructions PO .COMPLEX 05/01/23 tiotropium bromide 1.25 2 puff inhalation DAILY 05/01/23 mcg/actuation mist for inhalation (Spiriva Respimat) canagliflozin 100 mg tablet 100 mg PO DAILY 05/25/23 (Invokana) Previous Rx's Medication Instructions Recorded ondansetron 4 mg disintegrating 4 mg PO Q8H PRN nausea and 04/13/23 tablet vomiting #30 tabs Allergies Allergy/AdvReac Type Severity Reaction Status Date / Time venom-honey bee Allergy Severe Other (See Verified 07/05/23 14:55 Comment) Sulfa (Sulfonamide Allergy HIVES Verified 07/05/23 14:55 Antibiotics) General Stated Complaint: GenMedical MIKE: 3 Course Vital Signs Vital signs: Vital Signs Temperature 36.8 C 07/14/23 21:01 Pulse 83 07/14/23 21:01 Respiratory Rate 18 07/14/23 21:01 Pulse Oximetry 97 07/14/23 21:01 Temperature 36.8 C 07/14/23 21:01 Pulse 83 07/14/23 21:01 Respiratory Rate 18 07/14/23 21:05 Respiratory Effort Short of Breath 07/14/23 21:05 Pulse Oximetry 97 07/14/23 21:01 Oxygen Delivery Method Room Air 07/14/23 21:01 Oxygen Flow Rate 0 07/14/23 21:01 Pain Level 0 07/14/23 21:01 Medical Decision Making Quality:SDOH Health Related Social Needs: No Data to Display PFSH All Active Problems (Updated 07/14/23 @ 22:05 by Valdez Song MD) Chest pain, unspecified (Acute) Bipolar 2 disorder (Acute) Anxiety (Chronic) Psychologic conversion disorder (Acute) Urinary incontinence (Acute) Seasonal affective disorder (Acute) Tinea pedis (Acute) Onychomycosis (Acute) PVD (peripheral vascular disease) (Chronic) Type 2 diabetes mellitus with peripheral neuropathy (Acute) Nail dystrophy (Acute) Type 2 diabetes mellitus (Acute) Shortness of breath (Acute) Muscle pain (Acute) Atypical chest pain (Acute) Calculus of gallbladder with chronic cholecystitis without obstruction (Acute) Gallstones without obstruction of gallbladder (Acute) GERD (gastroesophageal reflux disease) (Chronic) Nausea and vomiting in adult (Acute) Abnormal CT of the abdomen (Acute) N&V (nausea and vomiting) (Acute) RLQ abdominal tenderness (Acute) Pre-syncope (Acute) Discharge planning issues (Acute) DVT prophylaxis (Acute) Nonspecific paroxysmal spell (Acute) Dizziness (Acute) Vertigo (Acute) Bradycardia (Acute) Near syncope (Acute) Dehydration (Acute) Syncope (Chronic) Hypomagnesemia (Acute) Right lower quadrant abdominal pain (Acute) Gastroesophageal reflux disease (Chronic) Asthma (Chronic) Depression (Chronic) Takes Fluoxetine 20mg QD with good impact on her depression, denies any SI. Encouraged to continue. to try to tame a hoiurde. Medical History Pacemaker Gestational diabetes mellitus High ankle sprain of right lower extremity Tobacco use (10/15/14) quit 01/2016 Acne (04/21/13) Back pain Taking prednisone 60mg QD for 4 days. Currently on day 2. Not feeling it is making much of a difference but she was encouraged to take for the full 4 days. Also suggested she take the muscle relaxer only PRN as it makes her quite drowsy. Encouraged to take at night. To help with rest. Other valenzuela, suggested she increse Aleve to AM & PM dose, then supplement with 1000mg Acetaminophen every 4-6 hours up to a total of 4000mg/day. Suggested ice might help more than heat but either should be limited to only 20 minutes at a time. Use topicals (Solopas Gel or Aspercreame with Lidocaine seem to be quite helpful. Try to avoid sitting or standing still for prolonged periods of time. Walking on flat ground is encourage. Surgical History History of cholecystectomy (~03/2019) History of esophagogastroduodenoscopy (EGD) (~01/2019) History of hysterectomy History of bilateral ligation of fallopian tubes History of discectomy Status post dilation and curettage S/P endometrial ablation irregular bleeding has restarted, neg EM bx 01/2016 discectomy (~2003) Ligation of fallopian tube Endometrial Ablation (~2009) Dilation and curettage X 2 with losses ANAL SURGERY surgical drainage of anal fissure Family History Mother Hyperlipidemia Thyroid disorder Father Essential hypertension Diabetes Personal history of malignant neoplasm prostate Heart disease Hyperlipidemia Myocardial infarction Social History Smoking/Tobacco Use Status: Current every day Tobacco Type: e-cigarettes Tobacco: How many years used: 20 Smoking risk assessment performed?: Yes Alcohol Intake: current Alcohol Intake frequency: holidays/special occasions only Drug use: Never Substance use type: does not use Household members: family and other Details: Lives with demented mother and her brother Housing: apartment 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
[2023-07-14 21:28] LABS: Bilirubin Negative (Negative); Blood Negative (Negative); Clarity Clear (Clear); Glucose >=1000 mg/dL (Negative); Ketones Negative (Negative); Leukocyte Esterase Negative (Negative); Nitrite Negative (Negative); Urobilinogen 0.2 mg/dL (Up to 0.2); pH 6.5 (5-8)
[2023-07-14 21:30] LABS: Bacteria Rare HPF (Negative); Crystals Negative HPF (Negative); Epithelial Cells Rare HPF (Negative); RBC 0-2 HPF (0-2); WBC 0-2 HPF (0-5)
[2023-07-14 21:31] LABS: C & S Indicated? No; Casts Negative LPF (Negative); Mucus Negative (Negative); Other Cells Rare Yeast (Negative)
[2023-07-14 21:40] LABS: Abs Immature Grans 0.05 10^3/uL (0.0-0.06); Absolute Basophil Count 0.05 10^3/uL (0.0-0.2); Absolute Lymphocyte Count 2.43 10^3/uL (1.2-3.4); Absolute Monocyte Count 0.72 10^3/uL (0.1-0.8); Absolute Neutrophil Count 7.55 10^3/uL (1.2-6.7); Basophils % 0.4; Eosinophils % 4.4; HCT 40.6 % (36.0-46.0); HGB 13.2 g/dL (11.2-15.7); Immature Grans % 0.4; Lymphocytes % 21.5; MCH 26.9 pg (27.0-33.0); MCHC 32.5 % (32.0-36.0); MCV 83 fL (80-95); MPV 10.8 fL (8.0-11.0); Monocytes % 6.4; Neutrophils % 66.9; Platelet Count 331 10^3/uL (130-400); RBC 4.91 10^6/uL (3.93-5.22); RDW 15.8 % (11.7-14.6); RDW-SD 47.8 fL; WBC 11.28 10^3/uL (4.4-10.8)
[2023-07-14] MEDS: Famotidine 20 MG/2 ML VIAL 40 MG IVP (21:47)
[2023-07-14] MEDS: Mylanta Suspension 30 ML CUP PO (21:47)
[2023-07-14] MEDS: Normal Saline 500 ML IV (21:47)
[2023-07-14 21:58] LABS: HCG Qual (Serum) Negative
[2023-07-14 22:00] LABS: Anion Gap 5.5 mmol/L (3-11); BUN 7 mg/dL (7-18); CO2 29.5 mmol/L (21.0-32.0); CREATININE 1.1 mg/dL (0.55-1.02); Calcium 8.9 mg/dL (8.5-10.1); Chloride 106 mmol/L (98-107); Glucose 97 mg/dL (74-106); Magnesium 2.3 mg/dL (1.8-2.4); Potassium 3.9 mmol/L (3.5-5.1); Sodium 141 mmol/L (136-145); Troponin I < 50 ng/L (< or =60)
[2023-07-14 22:14] LABS: COVID-19 PCR Negative (Negative); Influenza A PCR Negative (Negative); Influenza B PCR Negative (Negative); RSV PCR Negative (Negative)
[2023-07-14 22:15] LABS: Source Nasopharynx
[2023-07-14 22:17] VITALS: BP 109/63; PULSE 81; RESP 18; O2SAT 95
--- NOTE | 2023-07-14 22:34 | DI.VRAD_ITS ---
PROCEDURE INFORMATION: Exam: XR Chest Exam date and time: 07/14/2023 9:52 PM Age: 48 years old Clinical indication: Chest pressure; Patient HX: Chest pain TECHNIQUE: Imaging protocol: Radiologic exam of the chest. Views: 1 view. COMPARISON: CR XR CHEST 2V PA LATERAL 02/04/2023 11:28 PM FINDINGS: Tubes, catheters and devices: Loop recorder device projects over the cardiac shadow. Lungs: Lungs are adequately inflated and symmetric. No focal consolidation or evidence of pulmonary edema. Pleural spaces: No visible pleural effusion. No pneumothorax. Heart/Mediastinum: Cardiomediastinal contours within normal limits. Bones/joints: No acute osseous finding. Organs: Cholecystectomy clips are in place. IMPRESSION: No acute findings. Dictated and Authenticated by: Varghese Valdez MD. Ordering:TONY Kellogg MD
[2023-07-14 22:57] VITALS: BP 121/79; PULSE 76; RESP 18; O2SAT 100
== END 2023-07-14 22:58 | disposition home or self-care (01) ==
LOC: ER 22:34
PROVIDERS: Emergency Provider Emergency Medicine; PCP Nurse Practitioner Family
DX: R07.9 Chest pain, unspecified (principal); E11.40 Type 2 diabetes mellitus with diabetic neuropathy, unspecified; F17.290 Nicotine dependence, other tobacco product, uncomplicated; Z11.52 Encounter for screening for COVID-19; Z79.84 Long term (current) use of oral hypoglycemic drugs; Z95.0 Presence of cardiac pacemaker
CPT/HCPCS: 80048; 82962; 87637; 93005; 96361; 96374; 99285; 71045; 81003; 81015; 83735; 84484; 84703; 85025; 93010; 99284

== ENCOUNTER 2023-07-28 17:07 | Observation (INO) | payer MEDICARE, MEDICAID, SELFPAY ==
[2023-07-28] VITALS (115 sets, daily range): BP systolic 108–135; BP diastolic 54–82; PULSE 72–99; RESP 13–32; TEMP 36.5–36.9; O2SAT 95–100
--- NOTE | 2023-07-28 17:28 | W.ED.GENAD ---
Discharge Plan Disposition Patient Disposition: Admit to [facility] Condition: Stable Discharge Details Clinical Impression: GI bleed Primary Care Provider: BELTRAN JHAVERI ED Provider: Christopher Rasmussen Home Meds and New Rx's Prescriptions: No Action Januvia 50 mg tablet 50 mg PO DAILY docusate sodium 100 mg capsule 100 mg PO DAILY esomeprazole magnesium 40 mg capsule,delayed release(DR/EC) 40 mg PO DAILY fluticasone propion-salmeterol [Advair HFA] 230-21 mcg/actuation HFA aerosol inhaler 2 puff inhalation BID albuterol sulfate 90 mcg/actuation HFA aerosol inhaler 2 puff inhalation Q6H PRN bupropion HCl 300 mg tablet extended release 24 hr 300 mg PO QAM cetirizine 10 mg tablet 10 mg PO DAILY PRN clonazepam 0.5 mg tablet 0.5 mg PO DAILY PRN epinephrine 0.3 mg/0.3 mL auto-injector 0.3 mg IM ONCE Rx Instructions: as a single dose; may repeat once fluticasone propionate 100 mcg/actuation blister with device 1 inh inhalation BID potassium chloride [Klor-Con] 20 mEq packet 20 meq PO DAILY lactulose 10 gram/15 mL solution 10 g PO PRN Linzess 72 mcg capsule 290 mcg PO DAILY loperamide 2 mg capsule 2 mg PO Q6H PRN metformin 500 mg tablet extended release 24 hr 500 mg PO BID Rx Instructions: 2 tabs in the am and one a hs per pcp quetiapine 300 mg tablet 300 mg PO QHS Spiriva Respimat 1.25 mcg/actuation mist 2 puff inhalation DAILY sumatriptan succinate 50 mg tablet See Rx Instructions PO .COMPLEX Rx Instructions: take 1 tab at onset of headache; if no relief may repeat 1 tab after at least 2 hrs; max = 4 tabs/24 hr PO Invokana 100 mg tablet 100 mg PO DAILY lithium carbonate 300 mg tablet extended release 300 mg PO DAILY Patient Comments: TAKE 1 TABLET BY MOUTH IN THE EVENING ondansetron 4 mg tablet,disintegrating 4 mg PO Q8H PRN (Reason: nausea and vomiting) Qty: 30 0RF famotidine 20 mg tablet 20 mg PO BID cholecalciferol (vitamin D3) 50 mcg (2,000 unit) capsule 50 mcg PO DAILY Patient Comments: TAKE TWO CAPSULES BY MOUTH EVERY DAY Linzess 290 mcg capsule 290 mcg PO DAILY bupropion HCl 300 mg tablet extended release 24 hr 150 mg PO DAILY escitalopram oxalate 20 mg tablet 20 mg PO DAILY AM Patient Comments: TAKE 1 TABLET BY MOUTH ONCE DAILY midodrine 2.5 mg tablet 2 tab PO TID Patient Comments: TAKE 2 TABLETS BY MOUTH THREE TIMES DAILY HPI General Date/Time Provider Initiated Documentation: 07/28/23 17:28. HPI Narrative: 48 year-old female presents to ED today by POV/ambulating with a chief complaint of black tarry stools this morning, some dark maroon bits, some hematuria or vaginal bleeding - poor historian, with history of severe GERD, which has been worse lately with onset noted this morning waking up around 0500. Quality described as epigastric pain and right lower quadrant pain, flank pain, denies severe dizziness, no radiation to chest pain, palpitations, visual changes, recent fevers or URI, dysuria. Severity is described as moderate. Palliating factors include nothing attempted. Provoking factors include nothing specific. Patient not anticoagulated. Related Data Home Medications Medication Instructions Recorded Confirmed cholecalciferol (vitamin D3) 50 50 mcg PO DAILY 02/14/21 07/28/23 mcg (2,000 unit) capsule famotidine 20 mg tablet 20 mg PO BID 02/14/21 07/28/23 linaclotide 290 mcg capsule 290 mcg PO DAILY 02/14/21 07/28/23 (Linzess) escitalopram oxalate 20 mg tablet 20 mg PO DAILY AM 11/12/21 07/28/23 midodrine 2.5 mg tablet 2 tab PO TID 11/12/21 07/28/23 lithium carbonate 300 mg 300 mg PO DAILY 03/19/22 07/28/23 tablet,extended release bupropion HCl 300 mg 24 hr tablet, 150 mg PO DAILY 09/13/22 07/28/23 extended release docusate sodium 100 mg capsule 100 mg PO DAILY 09/13/22 07/28/23 esomeprazole magnesium 40 mg 40 mg PO DAILY 09/13/22 07/28/23 capsule,delayed release sitagliptin phosphate 50 mg tablet 50 mg PO DAILY 01/09/23 07/28/23 (Januvia) ondansetron 4 mg disintegrating 4 mg PO Q8H PRN nausea and 01/12/24 04/27/24 tablet vomiting #30 tabs albuterol sulfate 90 mcg/actuation 2 puff inhalation Q6H PRN 05/01/23 07/28/23 aerosol inhaler bupropion HCl 300 mg 24 hr tablet, 300 mg PO QAM 05/01/23 07/28/23 extended release cetirizine 10 mg tablet 10 mg PO DAILY PRN 05/01/23 07/28/23 clonazepam 0.5 mg tablet 0.5 mg PO DAILY PRN 05/01/23 07/28/23 epinephrine 0.3 mg/0.3 mL 0.3 mg IM ONCE 05/01/23 07/28/23 injection, auto-injector fluticasone propionate 100 1 inh inhalation BID 05/01/23 07/28/23 mcg/actuation blister powder for inhalation fluticasone propionate 230 2 puff inhalation BID 05/01/23 07/28/23 mcg-salmeterol 21 mcg/actuation HFA inhaler (Advair HFA) lactulose 10 gram/15 mL oral 10 g PO PRN 05/01/23 07/28/23 solution linaclotide 72 mcg capsule 290 mcg PO DAILY 05/01/23 07/28/23 (Linzess) loperamide 2 mg capsule 2 mg PO Q6H PRN 05/01/23 07/28/23 metformin 500 mg tablet,extended 500 mg PO BID 05/01/23 07/28/23 release 24 hr potassium chloride 20 mEq oral 20 meq PO DAILY 05/01/23 07/28/23 packet (Klor-Con) quetiapine 300 mg tablet 300 mg PO QHS 05/01/23 07/28/23 sumatriptan succinate 50 mg tablet See Rx Instructions PO .COMPLEX 05/01/23 07/28/23 tiotropium bromide 1.25 2 puff inhalation DAILY 05/01/23 07/28/23 mcg/actuation mist for inhalation (Spiriva Respimat) canagliflozin 100 mg tablet 100 mg PO DAILY 05/25/23 07/28/23 (Invokana) Previous Rx's Medication Instructions Recorded ondansetron 4 mg disintegrating 4 mg PO Q8H PRN nausea and 04/13/23 tablet vomiting #30 tabs Allergies Allergy/AdvReac Type Severity Reaction Status Date / Time venom-honey bee Allergy Severe Other (See Verified 07/28/23 17:14 Comment) Sulfa (Sulfonamide Allergy HIVES Verified 07/28/23 17:14 Antibiotics) General Stated Complaint: GI Bleed MIKE: 3 Review of Systems All systems reviewed & are unremarkable except as noted in HPI and below Exam Narrative Exam Narrative: GENERAL APPEARANCE: Well-nourished, non-toxic, awake and alert, atraumatic, no acute distress. SKIN: Warm, pink, dry, intact, without rashes/lesions/ulcerations. HEAD: Normocephalic, atraumatic, normal hair distribution for gender/age. EYES: Pupils PERRLA, EOMs intact without nystagmus, normal conjunctiva, no exudates on lids/lashes. ENT: Nares patent, no circumoral cyanosis, no facial swelling NECK: Supple, trachea midline, painless cervical ROM. LUNGS/CHEST: Lungs CTA bilaterally- no rhonchi/rales/wheezes diffusely, non-labored respirations, normal A/P diameter, symmetrical expansion, no chest wall deformity HEART (CV/PV): Regular rate and rhythm without murmur, no peripheral edema, no JVD. ABDOMEN: Soft, non-distended, no guarding, RLQ tenderness, epigastric tenderness, no LLQ tenderness, no Rovsing's, no CVA tenderness to percussion bilaterally. RECTAL: No maggie blood on TOMMIE, brown stool in rectum, no external/internal hermorrhoids MSK: Normal ROM, no swelling/deformity to bilateral UEs or LEs, moving all extremities without weakness, no cyanosis, spine midline without tenderness, normal curvature. NEURO: Mental Status AAOx4 - alert to person, place, time, events No facial droop, no forehead involvement. Motor: No focal weakness - strength 5/5 in bilateral UEs and LEs, proximal and distal, symmetric. Sensory: sensation intact to light touch globally. Gait NT. PSYCH: euthymic, cooperative, pleasant, appropriate speech Course Vital Signs Vital signs: Vital Signs Temperature 36.5 C 07/28/23 17:10 Pulse 99 H 07/28/23 17:10 Respiratory Rate 18 07/28/23 17:10 Blood Pressure 134/82 07/28/23 17:10 Pulse Oximetry 97 07/28/23 17:10 Temperature 36.5 C 07/28/23 17:10 Temperature Source Temporal Artery Scan 07/28/23 17:10 Pulse 99 H 07/28/23 17:10 Respiratory Rate 18 07/28/23 17:10 Respiratory Effort Normal, Non-Labored 07/28/23 17:14 Blood Pressure 134/82 07/28/23 17:10 Pulse Oximetry 97 07/28/23 17:10 Oxygen Delivery Method Room Air 07/28/23 17:10 Oxygen Flow Rate 0 07/28/23 17:10 Medical Decision Making This dictation utilizes [id number] dictation software and may contain unedited grammatical errors. 48 y/o F presents to ED today with a chief complaint of black tarry stools, with some maroon stool, significant GERD history- onset around 0500 when waking up this morning. Patient denies hematemesis or other vomiting, endorses diffuse right-sided abdominal pain with some flank pain question lower back pain as well. Patient denies chest pain, denies palpitations, denies near syncope. Patients' medical history: Bipolar 2 disorder, peripheral vascular disease, type 2 diabetes mellitus, [id number], atypical chest pain, history of gallstones, orthostatic hypotension, history of cholecystectomy, history of hysterectomy, pacemaker status. Family and social history: Denies significant EtOH ingestion. Pertinent exam findings / vital signs include right-sided abdominal pain and epigastric abdominal pain without peritoneal signs, afebrile, benign cardiopulmonary exam, neuro intact. Differential / pathologies of concern include GI bleeding, GERD, pancreatitis, appendicitis, small bowel obstruction, partial small bowel obstruction, mesenteric ischemia. Diagnostic studies of: -CBC, CMP, CRP/ESR, PT/PTT, lactate, lipase, UA, Trop I, Type and Screen, CTA ABD/Pelvis w Contrast. -Initial HgB 11.9 > 11.0 after 1L fluids, baseline is ~13 -CMP shows mild hypokalemia -CRP/ESR benign -Lactate 1.5 -PT/PTT wnl -Type & Screen: O Pos, Ab's neg -Trop I neg -UA benign -Lipase mildly elevated -CTA shows no extravasation, some question density in small bowel, no CBD abnormality Interventions of: -1L NS IVF - with drop of 0.9g HgB. Given 40mg IV protonix. -Consulted Medicine, they prefer General Surgery consult first, General Surgery Dr. Rangel admits. I informed Dr. Chi of likely medicine consult. Dr. Rangel would like - q2HR FSBS with Medicine managing any diabetes complications q4HR H+H and inform him of any drop below 9 40mg QD IV Protonix ED Course/Assessment/Plan: 48-year-old female presents with black and bloody tarry stools this morning at 05 100, has a history of severe GERD which is worse than usual lately. She is not anticoagulated, is a type II diabetic, no active vomiting or hematemesis. Her baseline hemoglobin is around 13, she was 11.9 when she came in after 1 L of fluid she dropped to 11.0 and her blood pressure was slightly more soft at 108/54. I did give her 40 mg Protonix IV, I consulted with general surgery Dr. Rangel for admission, he accepts with medicine consult to manage her diabetes and other routine medical care issues. I have placed orders for 75 mL/h of lactated Ringer's, 40 mg IV Protonix daily, every 4 hours her hemoglobin and hematocrits. Surgery would like to be consulted if her hemoglobin drops below 9 for more urgent scope. Informed Dr. Chi of likely medicine consult. Attempted to place nasogastric tube X3 here in the emergency department, patient refused further attempts due to intolerance. Swats away any attempts. Findings not consistent with Lower GI Bleeding, Acute Hemorrhage. Disposition of GI Bleeding. Patient verbalized understanding of the plan and return to ED criteria and engaged in shared decision making. Medical Records Medical records reviewed: Yes I reviewed the patient's medical records. Imaging Data Radiologic Study: Attestation: I personally reviewed and interpreted this imaging study as follows: Imaging: CT Scan Radiologist's impression: Exam: CTA Abdomen and Pelvis With Contrast Exam date and time: 07/28/2023 6:48 PM Age: 48 years old Clinical indication: Other: Gi bleeding TECHNIQUE: Imaging protocol: Computed tomographic angiography of the abdomen and pelvis with contrast. Exam focused on the arteries. 3D rendering (Not supervised by radiologist): MIP and/or 3D reconstructed images were created by the technologist. Contrast material: 350; Contrast volume: 100 ml; Contrast route: INTRAVENOUS (IV); COMPARISON: CT ABDOMEN PELVIS W 09/02/2022 7:11 PM FINDINGS: Limitations: The examination is degraded by patient motion artifact. Diagnostic information is still obtained. Aorta: No aortic aneurysm. No aortic dissection. Celiac trunk and mesenteric arteries: No occlusion or significant stenosis. Renal arteries: No occlusion or significant stenosis. Right iliac arteries: No occlusion or significant stenosis. Left iliac arteries: No occlusion or significant stenosis. Liver: No mass. Gallbladder and bile ducts: Status post cholecystectomy. Pancreas: Unremarkable. No mass. No ductal dilation. Spleen: Unremarkable. No splenomegaly. Adrenal glands: Unremarkable. No mass. Kidneys and ureters: Nonenhancing right lower pole simple renal cortical cyst measures 3.0 x 3.8 x 2.8 cm. No nephrolithiasis, hydronephrosis, or hydroureter. Stomach and bowel: High intensity within the jejunum (series 18 image 519) is not seen on the arterial phase imaging however there is high density within the small bowel in this region on precontrast CT and this likely represents enteric contents. There is no definite evidence of active gastrointestinal bleeding on this examination. Appendix: No evidence of appendicitis. Intraperitoneal space: Unremarkable. No free air. No significant fluid collection. Lymph nodes: Unremarkable. No enlarged lymph nodes. Urinary bladder: The urinary bladder is not distended. Reproductive: Status post hysterectomy. Right fallopian occlusion clip is noted. Bones/joints: No acute fracture. Mild degenerative changes of the lumbar spine. Soft tissues: Stable nonenhancing left pelvic sidewall cyst measuring 2.7 x 2.2 x 2.7 cm (series 12, image 626 and series 13, image 51). IMPRESSION: 1. No evidence of active gastrointestinal bleeding. 2. Stable nonenhancing left pelvic sidewall cyst, likely representing a benign peritoneal inclusion cyst. 3. Stable right renal simple cortical cyst. Dictated and Authenticated by: Michael Mathur MD. Ordering:JEREMÍAS White MD Lab Data Lab results reviewed: Yes I reviewed the patient's lab results. Labs: Laboratory Tests Range/Units 07/28/23 07/28/23 07/28/23 17:40 18:05 19:58 WBC (4.4-10.8) 10^3/uL 9.40 RBC (3.93-5.22) 10^6/uL 4.55 Hgb (11.2-15.7) g/dL 11.9 11.0 L Hct (36.0-46.0) % 38.1 34.8 L MCV (80-95) fL 84 MCH (27.0-33.0) pg 26.2 L MCHC (32.0-36.0) % 31.2 L RDW (11.7-14.6) % 15.4 H Plt Count (130-400) 10^3/uL 259 MPV (8.0-11.0) fL 10.9 Immature Gran % 0.4 Neutrophils % 60.1 Lymphocytes % 27.1 Monocytes % 6.8 Eosinophils % 5.2 Basophils % 0.4 Nucleated RBC % (0.0-0.3) % 0.0 Absolute Neutrophils (1.2-6.7) 10^3/uL 5.64 Absolute Lymphocytes (1.2-3.4) 10^3/uL 2.55 Absolute Monocytes (0.1-0.8) 10^3/uL 0.64 Absolute Eosinophils (0.0-0.7) 10^3/uL 0.49 Absolute Basophils (0.0-0.2) 10^3/uL 0.04 ESR (0-20) mm/hr 13 PT (9.1-11.1) sec 10.4 INR (0.9-1.1) 1.0 APTT (23.6-32.8) sec 26.0 VBG Lactate (0.6-1.4) mmol/L 1.5 H Sodium (136-145) mmol/L 141 Potassium (3.5-5.1) mmol/L 3.3 L Chloride (98-107) mmol/L 107 Carbon Dioxide (21.0-32.0) mmol/L 27.5 Anion Gap (3-11) mmol/L 6.5 BUN (7-18) mg/dL 11 Creatinine (0.55-1.02) mg/dL 1.1 H Est GFR (CKD-EPI 2020) (mL/min/1.73m2) 61.60 Glucose (74-106) mg/dL 158 H Calcium (8.5-10.1) mg/dL 8.6 Magnesium (1.8-2.4) mg/dL 1.9 Total Bilirubin (0.2-1.0) mg/dL 0.3 Conjugated Bilirubin (0.0-0.2) mg/dL 0.1 AST (15-37) U/L 22 ALT (14-59) U/L 27 Alkaline Phosphatase (46-116) U/L 122 H Troponin I (< or =60) ng/L < 50 C-Reactive Protein (<or=0.5) mg/dL 0.61 H Total Protein (6.4-8.2) g/dL 6.8 Albumin (3.4-5.0) g/dL 3.3 L Lipase (16-77) U/L 104 H Urine Color (Yellow) Yellow Urine Clarity (Clear) Clear Urine pH (5-8) 5.0 Ur Specific Forbes (1.005-1.025) 1.010 Urine Protein (Neg-Trace) mg/dL Negative Urine Ketones (Negative) mg/dL Negative Urine Blood (Negative) Negative Urine Nitrite (Negative) Negative Urine Bilirubin (Negative) Negative Urine Urobilinogen (Up to 0.2) mg/dL 0.2 Ur Leukocyte Esterase (Negative) Negative Urine RBC (0-2) HPF 0-2 Urine WBC (0-5) HPF 0-2 Ur Epithelial Cells (Negative) HPF Few Urine Crystals (Negative) HPF Negative Urine Bacteria (Negative) HPF Negative Urine Casts (Negative) LPF Negative Urine Mucus (Negative) Negative Ur Culture Indicated? No Urine Glucose (Negative) mg/dL >=1000 H Patient ABO/Rh O Positive Antibody Screen NEGATIVE Quality:SDOH Health Related Social Needs: No Data to Display PFSH All Active Problems (Updated 07/28/23 @ 20:54 by HOLLY Valladares) GI bleed (Chronic) Chest pain, unspecified (Acute) Bipolar 2 disorder (Acute) Anxiety (Chronic) Psychologic conversion disorder (Acute) Urinary incontinence (Acute) Seasonal affective disorder (Acute) Tinea pedis (Acute) Onychomycosis (Acute) PVD (peripheral vascular disease) (Chronic) Type 2 diabetes mellitus with peripheral neuropathy (Acute) Nail dystrophy (Acute) Type 2 diabetes mellitus (Acute) Shortness of breath (Acute) Muscle pain (Acute) Atypical chest pain (Acute) Calculus of gallbladder with chronic cholecystitis without obstruction (Acute) Gallstones without obstruction of gallbladder (Acute) GERD (gastroesophageal reflux disease) (Chronic) Nausea and vomiting in adult (Acute) Abnormal CT of the abdomen (Acute) N&V (nausea and vomiting) (Acute) RLQ abdominal tenderness (Acute) Pre-syncope (Acute) Discharge planning issues (Acute) DVT prophylaxis (Acute) Nonspecific paroxysmal spell (Acute) Dizziness (Acute) Vertigo (Acute) Bradycardia (Acute) Near syncope (Acute) Dehydration (Acute) Syncope (Chronic) Hypomagnesemia (Acute) Right lower quadrant abdominal pain (Acute) Gastroesophageal reflux disease (Chronic) Asthma (Chronic) Depression (Chronic) Takes Fluoxetine 20mg QD with good impact on her depression, denies any SI. Encouraged to continue. to try to tame a hoiurde. Medical History Pacemaker Gestational diabetes mellitus High ankle sprain of right lower extremity Tobacco use (10/15/14) quit 01/2016 Acne (04/21/13) Back pain Taking prednisone 60mg QD for 4 days. Currently on day 2. Not feeling it is making much of a difference but she was encouraged to take for the full 4 days. Also suggested she take the muscle relaxer only PRN as it makes her quite drowsy. Encouraged to take at night. To help with rest. Other valenzuela, suggested she increse Aleve to AM & PM dose, then supplement with 1000mg Acetaminophen every 4-6 hours up to a total of 4000mg/day. Suggested ice might help more than heat but either should be limited to only 20 minutes at a time. Use topicals (Solopas Gel or Aspercreame with Lidocaine seem to be quite helpful. Try to avoid sitting or standing still for prolonged periods of time. Walking on flat ground is encourage. Surgical History History of cholecystectomy (~03/2019) History of esophagogastroduodenoscopy (EGD) (~01/2019) History of hysterectomy History of bilateral ligation of fallopian tubes History of discectomy Status post dilation and curettage S/P endometrial ablation irregular bleeding has restarted, neg EM bx 01/2016 discectomy (~2003) Ligation of fallopian tube Endometrial Ablation (~2009) Dilation and curettage X 2 with losses ANAL SURGERY surgical drainage of anal fissure Family History Mother Hyperlipidemia Thyroid disorder Father Essential hypertension Diabetes Personal history of malignant neoplasm prostate Heart disease Hyperlipidemia Myocardial infarction Social History Smoking/Tobacco Use Status: Former Tobacco Use Tobacco: How many years used: 20 Smoking risk assessment performed?: Yes Alcohol Intake: never Drug use: Never Substance use type: does not use Household members: family and other Details: Lives with demented mother and her brother Housing: apartment current occupation: [employer]; [employer]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
--- NOTE | 2023-07-28 17:30 | DI.CT_ITS ---
Exam(s) CT ABDOMEN PELVIS CTA EXAM: CT ABDOMEN PELVIS CTA CLINICAL HISTORY: GI bleeding. TECHNIQUE: Imaging Protocol: Axial computed tomography images with coronal and sagittal reformatted images were created and reviewed CONTRAST MATERIAL: Intravenous: Omnipaque 350 Contrast volume:100 ml Oral: None COMPARISON: CT CT RENAL COLIC WO from 09/30/2022 FINDINGS: ABDOMEN: GI: There is no evidence of intraluminal extravasation contrast to suggest acute GI bleeding. Celiac and superior mesenteric arteries are patent. Inferior mesenteric artery is patent. No evidence of abdominal aortic aneurysm nor dissection. Iliac arteries are also nicely patent. No evidence of bowel obstruction. No free air. No abscess. No ascites. There is no ascites. LIVER: There are no focal hepatic lesions nor dilatation of intrahepatic ducts. GALLBLADDER/BILIARY: Gallbladder surgically absent. CBD is not dilated. PANCREAS: No evidence of pancreatic mass nor dilatation of the pancreatic duct. SPLEEN: Spleen is not enlarged. There are no intrasplenic lesions. Splenic and portal veins are gunter nt. ADRENALS: There are no significant adrenal masses. KIDNEYS: Previously described cyst in the lower pole region of the right kidney is unchanged. This b enign finding does not require further workup. No solid renal masses. No calculi. No hydronephrosi s. . ABDOMINAL AORTA: The abdominal aorta is not enlarged. LYMPH NODES: There is no retroperitoneal nor para-aortic adenopathy. No obvious mesenteric masses. ABDOMINAL WALL: No evidence of significant anterior abdominal wall hernia. GI: There is no evidence of bowel obstruction, free air, nor abscess. PELVIS: LYMPH NODES: There is no intrapelvic nor inguinal adenopathy. GI: No evidence of appendicitis.No evidence of sigmoid diverticulitis. URINARY BLADDER: Uniformly thickened bladder wall is probably related to under distension. REPRODUCTIVE: Previous hysterectomy. 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 OSSEOUS: No significant osseous lesions. No fractures. IMPRESSION: 1. No evidence of acute active GI bleeding on this arterial phase study. 2. 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 3. Stable right renal benign cyst. Is not require further workup. RADIATION DOSE DELIVERED: 2,997.46mGy.cm Total DLP DATA REPOSITORY: All CT scans at this facility are submitted to the National Radiology Data Registry (NRDR) Dose Index Registry (DIR) with the [employer] (ACR). RADIATION OPTIMIZATION: All CT scans at this facility use at least one of these dose optimization te chniques: automated exposure control; mA and/or kV adjustment per patient size (includes targeted exa ms where dose is matched to clinical indication); or iterative reconstruction.
[2023-07-28 17:52] LABS: Bilirubin Negative (Negative); Blood Negative (Negative); Clarity Clear (Clear); Glucose >=1000 mg/dL (Negative); Ketones Negative (Negative); Leukocyte Esterase Negative (Negative); Nitrite Negative (Negative); Urobilinogen 0.2 mg/dL (Up to 0.2)
[2023-07-28] MEDS: Pantoprazole 40 MG VIAL IVP ×2 (17:53→20:40)
[2023-07-28] MEDS: Normal Saline 1,000 ML 1000 ML IV (17:53)
[2023-07-28 18:02] LABS: Bacteria Negative HPF (Negative); C & S Indicated? No; Casts Negative LPF (Negative); Crystals Negative HPF (Negative); Epithelial Cells Few HPF (Negative); Mucus Negative (Negative); RBC 0-2 HPF (0-2); WBC 0-2 HPF (0-5)
[2023-07-28 18:16] LABS: Lactate 1.5 mmol/L (0.6-1.4)
[2023-07-28 18:20] LABS: Abs Immature Grans 0.04 10^3/uL (0.0-0.06); Absolute Basophil Count 0.04 10^3/uL (0.0-0.2); Absolute Eosinophil Count 0.49 10^3/uL (0.0-0.7); Absolute Lymphocyte Count 2.55 10^3/uL (1.2-3.4); Absolute Monocyte Count 0.64 10^3/uL (0.1-0.8); Absolute Neutrophil Count 5.64 10^3/uL (1.2-6.7); Basophils % 0.4; Eosinophils % 5.2; HCT 38.1 % (36.0-46.0); HGB 11.9 g/dL (11.2-15.7); Immature Grans % 0.4; Lymphocytes % 27.1; MCH 26.2 pg (27.0-33.0); MCHC 31.2 % (32.0-36.0); MCV 84 fL (80-95); MPV 10.9 fL (8.0-11.0); Monocytes % 6.8; Neutrophils % 60.1; Platelet Count 259 10^3/uL (130-400); RBC 4.55 10^6/uL (3.93-5.22); RDW 15.4 % (11.7-14.6); RDW-SD 46.5 fL
[2023-07-28 18:23] LABS: ESR 13 mm/hr (0-20)
[2023-07-28 18:30] LABS: Prothrombin Time 10.4 sec (9.1-11.1)
[2023-07-28 18:36] LABS: C-Reactive Protein 0.61 mg/dL (<or=0.5)
[2023-07-28 18:39] LABS: ALT 27 U/L (14-59); AST 22 U/L (15-37); Albumin 3.3 g/dL (3.4-5.0); Alkaline Phosphatase 122 U/L (46-116); Anion Gap 6.5 mmol/L (3-11); BUN 11 mg/dL (7-18); Bilirubin, Direct 0.1 mg/dL (0.0-0.2); Bilirubin, Total 0.3 mg/dL (0.2-1.0); CO2 27.5 mmol/L (21.0-32.0); CREATININE 1.1 mg/dL (0.55-1.02); Calcium 8.6 mg/dL (8.5-10.1); Chloride 107 mmol/L (98-107); Glucose 158 mg/dL (74-106); Lipase 104 U/L (16-77); Magnesium 1.9 mg/dL (1.8-2.4); Potassium 3.3 mmol/L (3.5-5.1); Sodium 141 mmol/L (136-145); Total Protein 6.8 g/dL (6.4-8.2)
[2023-07-28 18:45] LABS: Troponin I < 50 ng/L (< or =60)
[2023-07-28] MEDS: Normal Saline - Diluent 50 ML VIAL IJ (18:47)
[2023-07-28] MEDS: Omnipaque 350 MG/ML 100 ML BTL IJ (18:48)
[2023-07-28] MEDS: Normal Saline Flush 10 ML SYR IVP (18:49)
[2023-07-28 20:03] LABS: HCT 34.8 % (36.0-46.0)
--- NOTE | 2023-07-28 20:35 | MCONE_ITS ---
Date of service: 07/28/23 Time of Service: 20:35 Assessment and Plan Assessment and plan (1) GI bleed: Start date: 07/28/23 Status: Chronic Assessment and plan: This is a 48-year-old lady with chronic use of NSAIDs for low back pain presenting with acute onset of melena with tarry black stools and clots of blood. She also thought she may have had gross hematuria but her urinalysis was negative for blood. She does have some left flank pain and is follow-up with she has diverticular disease which needs to be evaluated the patient admitted to surgical service hopefully for endoscopy reviewed. She should also be considered for upper GI bleed with her black tarry stools with lower GI bleed with blood clots. Will follow patient medical problems with surgery. These are overall stable. Qualifiers: GI bleed type/associated pathology: melena Qualified Code(s): K92.1 - Melena (2) Bipolar 2 disorder: Status: Chronic Assessment and plan: Continue outpatient medical therapy. (3) Type 2 diabetes mellitus: Status: Chronic Assessment and plan: Hold metformin but continue Januvia and check glucometer before meals and bedtime or every 6 hours if NPO. Start insulin sliding scale coverage while hospitalized. Qualifiers: Diabetes mellitus medical terminologist insulin use: without medical terminologist use Diabetes mellitus complication status: without complication Qualified Code(s): E11.9 - Type 2 diabetes mellitus without complications (4) Hypokalemia: Start date: 07/28/23 Status: Acute Assessment and plan: Reviewed with patient to have follow-up lab and further treatment if needed. She does take potassium orally chronically despite not being on diuretic therapy. She is currently on lithium. History of Present Illness History of Present Illness Chief Complaint: 1 day of left flank pain with tarry stool mixed with blood Narrative: This is a 48-year-old female patient who presented to the ED with 1 day history of left flank pain and loose stools which were tarry black with some clots of blood. She does take NSAIDs and had increased use of ibuprofen recently with chronic low back pain. Her black and tarry stool occurred at 5:30 AM the morning that she presented to the ED and was loose. She has had heartburn recently with her increased use of ibuprofen. She does not take a chronic PPI but is on famotidine twice daily. She is overweight. She does take multiple psychiatric medicines as well as medicines for and does have some inhalers. She denies any cough or fever. She thinks that she may have had some blood in her urine at that time that she had a black tarry stool but urinalysis in the ED was negative for blood. She does have low potassium which was repleted in the ED and this needs to be followed up. She also has diabetes on oral therapy with metformin to be held during hospital stay with glucometer measurements and short acting insulin sliding scale coverage. She is aware of this plan with her variable diet being admitted to surgery. The patient is a full code. Review of Systems Narrative: 13 point review of systems otherwise unrevealing or stable. PFSH All Active Problems (Updated 07/29/23 @ 10:45 by Kobe Chi) GI bleed (Chronic) Chest pain, unspecified (Acute) Bipolar 2 disorder (Chronic) Anxiety (Chronic) Psychologic conversion disorder (Acute) Urinary incontinence (Acute) Seasonal affective disorder (Acute) Tinea pedis (Acute) Onychomycosis (Acute) PVD (peripheral vascular disease) (Chronic) Type 2 diabetes mellitus with peripheral neuropathy (Acute) Nail dystrophy (Acute) Type 2 diabetes mellitus (Chronic) Shortness of breath (Acute) Muscle pain (Acute) Atypical chest pain (Acute) Calculus of gallbladder with chronic cholecystitis without obstruction (Acute) Gallstones without obstruction of gallbladder (Acute) GERD (gastroesophageal reflux disease) (Chronic) Nausea and vomiting in adult (Acute) Abnormal CT of the abdomen (Acute) N&V (nausea and vomiting) (Acute) RLQ abdominal tenderness (Acute) Pre-syncope (Acute) Discharge planning issues (Acute) DVT prophylaxis (Acute) Nonspecific paroxysmal spell (Acute) Dizziness (Acute) Vertigo (Acute) Bradycardia (Acute) Near syncope (Acute) Dehydration (Acute) Syncope (Chronic) Hypomagnesemia (Acute) Hypokalemia (Acute) Right lower quadrant abdominal pain (Acute) Gastroesophageal reflux disease (Chronic) Asthma (Chronic) Depression (Chronic) Takes Fluoxetine 20mg QD with good impact on her depression, denies any SI. Encouraged to continue. to try to tame a benyurde. Medical History Pacemaker Gestational diabetes mellitus High ankle sprain of right lower extremity Tobacco use (10/15/14) quit 01/2016 Acne (04/21/13) Back pain Taking prednisone 60mg QD for 4 days. Currently on day 2. Not feeling it is making much of a difference but she was encouraged to take for the full 4 days. Also suggested she take the muscle relaxer only PRN as it makes her quite drowsy. Encouraged to take at night. To help with rest. Other valenzuela, suggested she increse Aleve to AM & PM dose, then supplement with 1000mg Acetaminophen every 4-6 hours up to a total of 4000mg/day. Suggested ice might help more than heat but either should be limited to only 20 minutes at a time. Use topicals (Sol[place]as Gel or Aspercreame with Lidocaine seem to be quite helpful. Try to avoid sitting or standing still for prolonged periods of time. Walking on flat ground is encourage. Surgical History History of cholecystectomy (~03/2019) History of esophagogastroduodenoscopy (EGD) (~01/2019) History of hysterectomy History of bilateral ligation of fallopian tubes History of discectomy Status post dilation and curettage S/P endometrial ablation irregular bleeding has restarted, neg EM bx 01/2016 discectomy (~2003) Ligation of fallopian tube Endometrial Ablation (~2009) Dilation and curettage X 2 with losses ANAL SURGERY surgical drainage of anal fissure Family History Mother Hyperlipidemia Thyroid disorder Father Essential hypertension Diabetes Personal history of malignant neoplasm prostate Heart disease Hyperlipidemia Myocardial infarction Social History Smoking/Tobacco Use Status: Former Tobacco Use Tobacco: How many years used: 20 Smoking risk assessment performed?: Yes Alcohol Intake: never Drug use: Never Substance use type: does not use Household members: family and other Details: Lives with demented mother and her brother Housing: other current occupation: [employer]; [employer]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 Exam Narrative Exam Narrative: General: Patient appears older than stated age, alert and oriented x 3 with flattened affect and in no acute distress. HEENT: Normocephalic, eyes with pupils equal and reactive to light symmetrically, extraocular movement intact and sclera anicteric. Oropharynx with moist mucosa and fair dentition. Neck: Supple without JVD. Back: Slightly kyphotic without CVA tenderness. Lungs: Bronchovesicular breath sounds diffusely with no focalizing rales or rhonchi. No expiratory wheeze. Fair aeration. Breast: Exam deferred. Heart: Regular rate and rhythm with no appreciable murmur or gallop. Abdomen: Obese contour, soft to palpation with no guarding or rebound. No palpable hepatosplenomegaly. Slightly uncomfortable to deep palpation of the left abdomen without focal guarding or rebound. Bowel sounds positive in all quadrants. Genitalia/rectal: Exam deferred. Extremities: Without clubbing, cyanosis or grossly pitting edema. Peripheral pulses intact. Skin: Normal color, warm and dry. No bruising. Neuro: Cranial nerves II to XII gross intact, no focalizing motor deficits. No tremor. Psych: Flattened affect with depressed mood. Slow speech with monotonous tone to voice. No abnormal thought processes. Remote and recent memory grossly intact. Results Last Vital Signs Temp 36.9 C 07/28/23 17:33 Pulse 73 07/28/23 20:01 Resp 18 07/28/23 20:01 BP 108/54 L 07/28/23 20:01 Pulse Ox 100 07/28/23 20:01 Labs 07/28/23 23:00 07/28/23 18:05 Labs: Laboratory Results - last 24 hr 07/28/23 07/28/23 07/28/23 17:40 18:05 19:58 WBC 9.40 RBC 4.55 Hgb 11.9 11.0 L Hct 38.1 34.8 L MCV 84 MCH 26.2 L MCHC 31.2 L RDW 15.4 H Plt Count 259 MPV 10.9 Immature Gran % 0.4 Neutrophils % 60.1 Lymphocytes % 27.1 Monocytes % 6.8 Eosinophils % 5.2 Basophils % 0.4 Nucleated RBC % 0.0 Absolute Neutrophils 5.64 Absolute Lymphocytes 2.55 Absolute Monocytes 0.64 Absolute Eosinophils 0.49 Absolute Basophils 0.04 ESR 13 PT 10.4 INR 1.0 APTT 26.0 VBG Lactate 1.5 H Sodium 141 Potassium 3.3 L Chloride 107 Carbon Dioxide 27.5 Anion Gap 6.5 BUN 11 Creatinine 1.1 H Est GFR (CKD-EPI 2020) 61.60 Glucose 158 H Calcium 8.6 Magnesium 1.9 Total Bilirubin 0.3 Conjugated Bilirubin 0.1 AST 22 ALT 27 Alkaline Phosphatase 122 H Troponin I < 50 C-Reactive Protein 0.61 H Total Protein 6.8 Albumin 3.3 L Lipase 104 H Urine Color Yellow Urine Clarity Clear Urine pH 5.0 Ur Specific [place] 1.010 Urine Protein Negative Urine Ketones Negative Urine Blood Negative Urine Nitrite Negative Urine Bilirubin Negative Urine Urobilinogen 0.2 Ur Leukocyte Esterase Negative Urine RBC 0-2 Urine WBC 0-2 Ur Epithelial Cells Few Urine Crystals Negative Urine Bacteria Negative Urine Casts Negative Urine Mucus Negative Ur Culture Indicated? No Urine Glucose >=1000 H Patient ABO/Rh O Positive Antibody Screen NEGATIVE Imaging Imaging Studies: Exam: CTA Abdomen and Pelvis With Contrast Exam date and time: 07/28/2023 6:48 PM Age: 48 years old Clinical indication: Other: Gi bleeding COMPARISON: CT ABDOMEN PELVIS W 09/02/2022 7:11 PM FINDINGS: Limitations: The examination is degraded by patient motion artifact. Diagnostic information is still obtained. Aorta: No aortic aneurysm. No aortic dissection. Celiac trunk and mesenteric arteries: No occlusion or significant stenosis. Renal arteries: No occlusion or significant stenosis. Right iliac arteries: No occlusion or significant stenosis. Left iliac arteries: No occlusion or significant stenosis. Liver: No mass. Gallbladder and bile ducts: Status post cholecystectomy. Pancreas: Unremarkable. No mass. No ductal dilation. Spleen: Unremarkable. No splenomegaly. Adrenal glands: Unremarkable. No mass. Kidneys and ureters: Nonenhancing right lower pole simple renal cortical cyst measures 3.0 x 3.8 x 2.8 cm. No nephrolithiasis, hydronephrosis, or hydroureter. Stomach and bowel: High intensity within the jejunum (series 18 image 519) is not seen on the arterial phase imaging however there is high density within the small bowel in this region on precontrast CT and this likely represents enteric contents. There is no definite evidence of active gastrointestinal bleeding on this examination. Appendix: No evidence of appendicitis. Intraperitoneal space: Unremarkable. No free air. No significant fluid collection. Lymph nodes: Unremarkable. No enlarged lymph nodes. Urinary bladder: The urinary bladder is not distended. Reproductive: Status post hysterectomy. Right fallopian occlusion clip is noted. Bones/joints: No acute fracture. Mild degenerative changes of the lumbar spine. Soft tissues: Stable nonenhancing left pelvic sidewall cyst measuring 2.7 x 2.2 x 2.7 cm (series 12, image 626 and series 13, image 51). IMPRESSION: 1. No evidence of active gastrointestinal bleeding. 2. Stable nonenhancing left pelvic sidewall cyst, likely representing a benign peritoneal inclusion cyst. 3. Stable right renal simple cortical cyst.
--- NOTE | 2023-07-28 20:47 | DI.VRAD_ITS ---
PROCEDURE INFORMATION: Exam: CTA Abdomen and Pelvis With Contrast Exam date and time: 07/28/2023 6:48 PM Age: 48 years old Clinical indication: Other: Gi bleeding TECHNIQUE: Imaging protocol: Computed tomographic angiography of the abdomen and pelvis with contrast. Exam focused on the arteries. 3D rendering (Not supervised by radiologist): MIP and/or 3D reconstructed images were created by the technologist. Contrast material: 350; Contrast volume: 100 ml; Contrast route: INTRAVENOUS (IV); COMPARISON: CT ABDOMEN PELVIS W 09/02/2022 7:11 PM FINDINGS: Limitations: The examination is degraded by patient motion artifact. Diagnostic information is still obtained. Aorta: No aortic aneurysm. No aortic dissection. Celiac trunk and mesenteric arteries: No occlusion or significant stenosis. Renal arteries: No occlusion or significant stenosis. Right iliac arteries: No occlusion or significant stenosis. Left iliac arteries: No occlusion or significant stenosis. Liver: No mass. Gallbladder and bile ducts: Status post cholecystectomy. Pancreas: Unremarkable. No mass. No ductal dilation. Spleen: Unremarkable. No splenomegaly. Adrenal glands: Unremarkable. No mass. Kidneys and ureters: Nonenhancing right lower pole simple renal cortical cyst measures 3.0 x 3.8 x 2.8 cm. No nephrolithiasis, hydronephrosis, or hydroureter. Stomach and bowel: High intensity within the jejunum (series 18 image 519) is not seen on the arterial phase imaging however there is high density within the small bowel in this region on precontrast CT and this likely represents enteric contents. There is no definite evidence of active gastrointestinal bleeding on this examination. Appendix: No evidence of appendicitis. Intraperitoneal space: Unremarkable. No free air. No significant fluid collection. Lymph nodes: Unremarkable. No enlarged lymph nodes. Urinary bladder: The urinary bladder is not distended. Reproductive: Status post hysterectomy. Right fallopian occlusion clip is noted. Bones/joints: No acute fracture. Mild degenerative changes of the lumbar spine. Soft tissues: Stable nonenhancing left pelvic sidewall cyst measuring 2.7 x 2.2 x 2.7 cm (series 12, image 626 and series 13, image 51). IMPRESSION: 1. No evidence of active gastrointestinal bleeding. 2. Stable nonenhancing left pelvic sidewall cyst, likely representing a benign peritoneal inclusion cyst. 3. Stable right renal simple cortical cyst. Dictated and Authenticated by: Michael Mathur MD. Ordering:JEREMÍAS White MD
[2023-07-28] MEDS: Lactated Ringers 1,000 ML 75 ML IV (20:54)
[2023-07-28] MEDS: Ondansetron O.D.T. 4 MG TABEF PO (22:10)
[2023-07-28] MEDS: POTASSIUM CHLORIDE 20 MEQ/100 ML BAG 50 MEQ IVINF (22:10)
[2023-07-28 23:10] LABS: HCT 34.8 % (36.0-46.0); HGB 11.1 g/dL (11.2-15.7)
[2023-07-28] MEDS: Famotidine 20 MG TAB PO (23:28)
[2023-07-28] MEDS: QUEtiapine 300 MG TAB PO (23:28)
[2023-07-28] MEDS: Midodrine 2.5 MG TAB 5 MG PO (23:28)
[2023-07-29] MEDS: POTASSIUM CHLORIDE 20 MEQ/100 ML BAG 50 MEQ IVINF (01:25)
[2023-07-29] MEDS: ACETAMINOPHEN 1,000 MG/100 ML BTL 400 MG IVPB ×2 (06:03→20:20)
[2023-07-29] MEDS: Normal Saline Flush 10 ML SYR IVP ×2 (06:04→20:46)
[2023-07-29 07:14] VITALS: BP 96/56; PULSE 87; RESP 18; TEMP 36.5; O2SAT 93
[2023-07-29] MEDS: Tiotropium Bromide-Respimat 10 PUFF INH 2 PUFF IH (08:17)
[2023-07-29] MEDS: Budesonide/Formoterol 160/4.5 6 GM 60 PUFF INH IH ×2 (08:17→21:30)
[2023-07-29] MEDS: Pantoprazole 40 MG VIAL IVP ×2 (09:18→21:40)
[2023-07-29] MEDS: Potassium Chloride Liquid 20 MEQ PKT PO (09:19)
[2023-07-29] MEDS: Cholecalciferol (Vitamin D3) 1,000 UNIT TAB 2000 UNITS PO (09:19)
[2023-07-29] MEDS: Midodrine 2.5 MG TAB 5 MG PO ×3 (09:19→20:46)
[2023-07-29] MEDS: buPROPion-XL 150 MG TABCR PO (09:19)
[2023-07-29] MEDS: Esomeprazole 40 MG CAPCR PO (09:19)
[2023-07-29] MEDS: Famotidine 20 MG TAB PO ×2 (09:19→20:45)
--- NOTE | 2023-07-29 10:30 | HPE_ITS ---
Date of service: 07/29/23 Time of Service: 09:30 Assessment and Plan Assessment and plan (1) GI bleed: Status: Chronic Assessment and plan: (a) H/H have been stable (b) Patient has remained hemodynamically stable since presenting to the ED (c) Will give Clear Liquid diet today (d) Monitor for any bleeding or changes in vital signs. (e) Can have usual PO meds today. (f) Make NPO after MN tonight (g) Plan for Upper Endoscopy/EGD for tomorrow, Saturday 07/[address] Erazo Qualifiers: GI bleed type/associated pathology: melena Qualified Code(s): K92.1 - Melena (2) Bipolar 2 disorder: Status: Chronic Assessment and plan: (a) Monitor (b) May have usual home PO meds today (c) Appreciate Hospitalist's consult and assist. (3) Type 2 diabetes mellitus with peripheral neuropathy: Status: Acute Assessment and plan: (a) Monitor glucose (b) Appreciate Hospitalist's consult and assist. History of Present Illness History of Present Illness Chief Complaint: Blood in urine, dark tarry stools Consults Consult date: 07/29/23 Requesting physician: Kobe Lozano arrative: This 48y/o female presented via the ED last night after noticing some blood in the toilet upon voiding urine. She noticed blood on the toilet paper as well. She then reports having passed a couple of dark stools (melena). In the ED, patient found to have H/H of 11.9/38.1 (down from 13.2/40.6 on 07/14/2023). Patient found to be hemodynamically stable. Attempts at placing an NG were not successful. Subsequent H/H's measured 11.0/34.8 and 11.1/34.8. She has had no further evidence of bleeing. Patient is on both H2-tigist as well as a proton pump inhibitor. She stated having a similar episode 07/2022 in [place] at which time she underwent an upper endoscopy. This study reported a small ulcer according to the patient. She has remained hemodynamically stable since presenting to the ED. Review of Systems Narrative: See long list of medical problems recorded in the medical record. Constitutional Comments: Had some weakness and dizziness yesterday. Eyes Comments: Dizziness yesterday, but no lasting visual changes. Cardiovascular Comments: No chest pain. Respiratory Comments: No SOB Gastrointestinal Comments: Has history of irritable bowel syndrome. Sometimes stools are loose, sometimes hard. History of cholecystectomy for cholelithiasis Genitourinary Comments: History of NAHED for DUB. Psychiatric Comments: Bi-polar disorder by history Endocrine Comments: Diabetes by history PFSH All Active Problems (Updated 07/29/23 @ 10:45 by Kobe Chi) GI bleed (Chronic) Bipolar 2 disorder (Chronic) Type 2 diabetes mellitus with peripheral neuropathy (Acute) Chest pain, unspecified (Acute) Anxiety (Chronic) Psychologic conversion disorder (Acute) Urinary incontinence (Acute) Seasonal affective disorder (Acute) Tinea pedis (Acute) Onychomycosis (Acute) PVD (peripheral vascular disease) (Chronic) Nail dystrophy (Acute) Type 2 diabetes mellitus (Chronic) Shortness of breath (Acute) Muscle pain (Acute) Atypical chest pain (Acute) Calculus of gallbladder with chronic cholecystitis without obstruction (Acute) Gallstones without obstruction of gallbladder (Acute) GERD (gastroesophageal reflux disease) (Chronic) Nausea and vomiting in adult (Acute) Abnormal CT of the abdomen (Acute) N&V (nausea and vomiting) (Acute) RLQ abdominal tenderness (Acute) Pre-syncope (Acute) Discharge planning issues (Acute) DVT prophylaxis (Acute) Nonspecific paroxysmal spell (Acute) Dizziness (Acute) Vertigo (Acute) Bradycardia (Acute) Near syncope (Acute) Dehydration (Acute) Syncope (Chronic) Hypomagnesemia (Acute) Hypokalemia (Acute) Right lower quadrant abdominal pain (Acute) Gastroesophageal reflux disease (Chronic) Asthma (Chronic) Depression (Chronic) Takes Fluoxetine 20mg QD with good impact on her depression, denies any SI. Encouraged to continue. to try to tame a riccode. Medical History (Updated 07/29/23 @ 10:45 by Kobe Chi) Pacemaker Gestational diabetes mellitus High ankle sprain of right lower extremity Tobacco use (10/15/14) quit 01/2016 Acne (04/21/13) Back pain Taking prednisone 60mg QD for 4 days. Currently on day 2. Not feeling it is making much of a difference but she was encouraged to take for the full 4 days. Also suggested she take the muscle relaxer only PRN as it makes her quite drowsy. Encouraged to take at night. To help with rest. Other valenzuela, suggested she increse Aleve to AM & PM dose, then supplement with 1000mg Acetaminophen every 4-6 hours up to a total of 4000mg/day. Suggested ice might help more than heat but either should be limited to only 20 minutes at a time. Use topicals (Solopas Gel or Aspercreame with Lidocaine seem to be quite helpful. Try to avoid sitting or standing still for prolonged periods of time. Walking on flat ground is encourage. Surgical History (Updated 07/29/23 @ 10:51 by Michael Rangel DO) History of cholecystectomy (~03/2019) History of esophagogastroduodenoscopy (EGD) (~07/2022) History of hysterectomy History of bilateral ligation of fallopian tubes History of discectomy Status post dilation and curettage S/P endometrial ablation irregular bleeding has restarted, neg EM bx 01/2016 discectomy (~2003) Ligation of fallopian tube Endometrial Ablation (~2009) Dilation and curettage X 2 with losses ANAL SURGERY surgical drainage of anal fissure Family History Mother Hyperlipidemia Thyroid disorder Father Essential hypertension Diabetes Personal history of malignant neoplasm prostate Heart disease Hyperlipidemia Myocardial infarction Social History Smoking/Tobacco Use Status: Former Tobacco Use Tobacco: How many years used: 20 Smoking risk assessment performed?: Yes Alcohol Intake: never Drug use: Never Substance use type: does not use Household members: family and other Details: Lives with demented mother and her brother Housing: other current occupation: [address]; [employer]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 Meds Allergies and Home Medications Allergies Allergy/AdvReac Type Severity Reaction Status Date / Time venom-honey bee Allergy Severe Other (See Verified 07/28/23 17:14 Comment) Sulfa (Sulfonamide Allergy HIVES Verified 07/28/23 17:14 Antibiotics) Home Medications Medication Instructions Recorded Confirmed Type cholecalciferol (vitamin D3) 50 50 mcg PO DAILY 02/14/21 07/28/23 History mcg (2,000 unit) capsule famotidine 20 mg tablet 20 mg PO BID 02/14/21 07/28/23 History linaclotide 290 mcg capsule 290 mcg PO DAILY 02/14/21 07/28/23 History (Nicanor) escitalopram oxalate 20 mg tablet 20 mg PO DAILY AM 11/12/21 07/28/23 History midodrine 2.5 mg tablet 2 tab PO TID 11/12/21 07/28/23 History lithium carbonate 300 mg 300 mg PO HS 03/19/22 07/29/23 History tablet,extended release bupropion HCl 300 mg 24 hr tablet, 150 mg PO DAILY 09/13/22 07/28/23 History extended release docusate sodium 100 mg capsule 100 mg PO DAILY 09/13/22 07/28/23 History esomeprazole magnesium 40 mg 40 mg PO DAILY 09/13/22 07/28/23 History capsule,delayed release sitagliptin phosphate 50 mg tablet 50 mg PO DAILY 01/09/23 07/28/23 History (Tj) ondansetron 4 mg disintegrating 4 mg PO Q8H PRN nausea and 04/13/23 07/28/23 Rx tablet vomiting #30 tabs albuterol sulfate 90 mcg/actuation 2 puff inhalation Q6H PRN 05/01/23 07/28/23 History aerosol inhaler bupropion HCl 300 mg 24 hr tablet, 300 mg PO QAM 05/01/23 07/28/23 History extended release cetirizine 10 mg tablet 10 mg PO DAILY PRN 05/01/23 07/28/23 History clonazepam 0.5 mg tablet 0.5 mg PO DAILY PRN 05/01/23 07/28/23 History epinephrine 0.3 mg/0.3 mL 0.3 mg IM ONCE 05/01/23 07/28/23 History injection, auto-injector fluticasone propionate 100 1 inh inhalation BID 05/01/23 07/28/23 History mcg/actuation blister powder for inhalation fluticasone propionate 230 2 puff inhalation BID 05/01/23 07/28/23 History mcg-salmeterol 21 mcg/actuation HFA inhaler (Advair HFA) lactulose 10 gram/15 mL oral 10 g PO PRN 05/01/23 07/28/23 History solution linaclotide 72 mcg capsule 72 mcg PO DAILY 05/01/23 07/29/23 History (Linzess) loperamide 2 mg capsule 2 mg PO Q6H PRN 05/01/23 07/28/23 History metformin 500 mg tablet,extended 500 mg PO BID 05/01/23 07/28/23 History release 24 hr potassium chloride 20 mEq oral 20 meq PO DAILY 05/01/23 07/28/23 History packet (Klor-Con) quetiapine 300 mg tablet 300 mg PO QHS 05/01/23 07/28/23 History sumatriptan succinate 50 mg tablet See Rx Instructions PO .COMPLEX 05/01/23 07/28/23 History tiotropium bromide 1.25 2 puff inhalation DAILY 05/01/23 07/28/23 History mcg/actuation mist for inhalation (Spiriva Respimat) canagliflozin 100 mg tablet 100 mg PO DAILY 05/25/23 07/28/23 History (Invokana) Exam Narrative Exam Narrative: Patient seen and examined in bed on regular nursing floor. Const Other: Resting comfortable. Non-toxic appearing. There has been no evidence for bleeding or blood loss. Patient has remained hemodynamically stable. Eyes Other: Non-icteric, EOMI Neck Other: Neck is supple, thyroid is non-tender, there are no carotid bruits. Resp Other: No tachypnea, no SOB, lungs are CTA bilaterally in anterior velez. Cardio Other: Denies chest pain. GI Other: Doughy soft, complains of a little pain with palpation, mostly at RLQ. There is voluntary guarding, but no rebound or evidence of peritoneal irritation. BS are present. Other: Not examined. Skin Other: No rashes Neuro Other: No focal or lateralizing deficits or neuro signs or symptoms. Extrem Other: Spontaneous x4. There are no open sores, wounds or ulcers. There is no calf pain. Psych Other: No apparent active psychoses. Results Imaging Abdomen CT scan report/results: report reviewed Labs 07/28/23 23:00 07/28/23 18:05 Labs: Laboratory Results - last 24 hr 07/28/23 07/28/23 07/28/23 17:40 18:05 19:58 WBC 9.40 RBC 4.55 Hgb 11.9 11.0 L Hct 38.1 34.8 L MCV 84 MCH 26.2 L MCHC 31.2 L RDW 15.4 H Plt Count 259 MPV 10.9 Immature Gran % 0.4 Neutrophils % 60.1 Lymphocytes % 27.1 Monocytes % 6.8 Eosinophils % 5.2 Basophils % 0.4 Nucleated RBC % 0.0 Absolute Neutrophils 5.64 Absolute Lymphocytes 2.55 Absolute Monocytes 0.64 Absolute Eosinophils 0.49 Absolute Basophils 0.04 ESR 13 PT 10.4 INR 1.0 APTT 26.0 VBG Lactate 1.5 H Sodium 141 Potassium 3.3 L Chloride 107 Carbon Dioxide 27.5 Anion Gap 6.5 BUN 11 Creatinine 1.1 H Est GFR (CKD-EPI 2020) 61.60 Glucose 158 H Calcium 8.6 Magnesium 1.9 Total Bilirubin 0.3 Conjugated Bilirubin 0.1 AST 22 ALT 27 Alkaline Phosphatase 122 H Troponin I < 50 C-Reactive Protein 0.61 H Total Protein 6.8 Albumin 3.3 L Lipase 104 H Urine Color Yellow Urine Clarity Clear Urine pH 5.0 Ur Specific Delancey 1.010 Urine Protein Negative Urine Ketones Negative Urine Blood Negative Urine Nitrite Negative Urine Bilirubin Negative Urine Urobilinogen 0.2 Ur Leukocyte Esterase Negative Urine RBC 0-2 Urine WBC 0-2 Ur Epithelial Cells Few Urine Crystals Negative Urine Bacteria Negative Urine Casts Negative Urine Mucus Negative Ur Culture Indicated? No Urine Glucose >=1000 H Patient ABO/Rh O Positive Antibody Screen NEGATIVE 07/28/23 23:00 WBC RBC Hgb 11.1 L Hct 34.8 L MCV MCH MCHC RDW Plt Count MPV Immature Gran % Neutrophils % Lymphocytes % Monocytes % Eosinophils % Basophils % Nucleated RBC % Absolute Neutrophils Absolute Lymphocytes Absolute Monocytes Absolute Eosinophils Absolute Basophils ESR PT INR APTT VBG Lactate Sodium Potassium Chloride Carbon Dioxide Anion Gap BUN Creatinine Est GFR (CKD-EPI 2020) Glucose Calcium Magnesium Total Bilirubin Conjugated Bilirubin AST ALT Alkaline Phosphatase Troponin I C-Reactive Protein Total Protein Albumin Lipase Urine Color Urine Clarity Urine pH Ur Specific Delancey Urine Protein Urine Ketones Urine Blood Urine Nitrite Urine Bilirubin Urine Urobilinogen Ur Leukocyte Esterase Urine RBC Urine WBC Ur Epithelial Cells Urine Crystals Urine Bacteria Urine Casts Urine Mucus Ur Culture Indicated? Urine Glucose Patient ABO/Rh Antibody Screen Last Vital Signs Temp 97.7 F 07/29/23 07:14 Pulse 87 07/29/23 07:14 Resp 18 07/29/23 07:14 BP 96/56 L 07/29/23 07:14 Pulse Ox 93 07/29/23 07:14 Time Spent Time spent with Patient: <40 minutes Time was spent: preparing to see the patient(eg.review tests), obtaining and/or reviewing separately otained hiistory, ordering medications,tests, procedures, indepentently interpreting results, counseling the patient and care coordination
--- NOTE | 2023-07-29 10:38 | PDOC.CMIN ---
Date of service: 07/29/23 Care Management Initial Assmt Initial Assessment REASON FOR HOSPITALIZATION:: GI bleeding PREVIOUS FUNCTIONAL STATUS/SOCIAL/FAMILY SUPPORTS:: Janessa lives in [facility] with her , son, and her mother whom she is the primary caregiver for. Janessa does not work in addition to providing care. She has five children total who live in [place], [place], [place], and [place]. She also has 5 grandchildren. She is independent at baseline and able to perform all ADLs. CURRENT FUNCTIONAL STATUS:: Janessa was sitting up in bed when talking with CM. Janessa shares she was not feeling well and had been sleeping some throughout the day. She has been in contact with her family via phone. CM following. ADVANCE DIRECTIVES:: None on file Has patient been provided with info about the portal/API?: Yes Did the patient sign up for the portal?: Yes ([email or web address]) CODE STATUS:: Full Code INSURANCE COVERAGE / FINANCIAL ISSUES:: [facility] CURRENT HOME/COMMUNITY SERVICES/EQUIPMENT:: [facility] counseling services PRIMARY CARE PHYSICIAN:: Sarah Beltrán POTENTIAL DISCHARGE NEEDS:: Follow up appointments PATIENT/FAMILY EDUCATION NEEDS:: Review discharge instructions and limitations, discussion of self care needs including Ask Me Three ANTICIPATED BARRIERS TO DISCHARGE:: None identified TRANSPORTATION:: Via private vehicle with family or RCT PLAN:: Janessa will discharge home when medically cleared. She will transport via private vehicle with family. She will follow up with her PCP and discharge plan of care. She will have no new services. CM following. [facility] All Active Problems (Updated 07/29/23 @ 10:45 by Kobe Chi) GI bleed (Chronic) Bipolar 2 disorder (Chronic) Type 2 diabetes mellitus with peripheral neuropathy (Acute) Chest pain, unspecified (Acute) Anxiety (Chronic) Psychologic conversion disorder (Acute) Urinary incontinence (Acute) Seasonal affective disorder (Acute) Tinea pedis (Acute) Onychomycosis (Acute) PVD (peripheral vascular disease) (Chronic) Nail dystrophy (Acute) Type 2 diabetes mellitus (Chronic) Shortness of breath (Acute) Muscle pain (Acute) Atypical chest pain (Acute) Calculus of gallbladder with chronic cholecystitis without obstruction (Acute) Gallstones without obstruction of gallbladder (Acute) GERD (gastroesophageal reflux disease) (Chronic) Nausea and vomiting in adult (Acute) Abnormal CT of the abdomen (Acute) N&V (nausea and vomiting) (Acute) RLQ abdominal tenderness (Acute) Pre-syncope (Acute) Discharge planning issues (Acute) DVT prophylaxis (Acute) Nonspecific paroxysmal spell (Acute) Dizziness (Acute) Vertigo (Acute) Bradycardia (Acute) Near syncope (Acute) Dehydration (Acute) Syncope (Chronic) Hypomagnesemia (Acute) Hypokalemia (Acute) Right lower quadrant abdominal pain (Acute) Gastroesophageal reflux disease (Chronic) Asthma (Chronic) Depression (Chronic) Takes Fluoxetine 20mg QD with good impact on her depression, denies any SI. Encouraged to continue. to try to tame a saray. Medical History (Updated 07/29/23 @ 10:45 by Kobe Chi) Pacemaker Gestational diabetes mellitus High ankle sprain of right lower extremity Tobacco use (10/15/14) quit 01/2016 Acne (04/21/13) Back pain Taking prednisone 60mg QD for 4 days. Currently on day 2. Not feeling it is making much of a difference but she was encouraged to take for the full 4 days. Also suggested she take the muscle relaxer only PRN as it makes her quite drowsy. Encouraged to take at night. To help with rest. Other valenzuela, suggested she increse Aleve to AM & PM dose, then supplement with 1000mg Acetaminophen every 4-6 hours up to a total of 4000mg/day. Suggested ice might help more than heat but either should be limited to only 20 minutes at a time. Use topicals (Solopas Gel or Aspercreame with Lidocaine seem to be quite helpful. Try to avoid sitting or standing still for prolonged periods of time. Walking on flat ground is encourage. Surgical History (Updated 07/29/23 @ 10:51 by Michael Rangel DO) History of cholecystectomy (~03/2019) History of esophagogastroduodenoscopy (EGD) (~07/2022) History of hysterectomy History of bilateral ligation of fallopian tubes History of discectomy Status post dilation and curettage S/P endometrial ablation irregular bleeding has restarted, neg EM bx 01/2016 discectomy (~2003) Ligation of fallopian tube Endometrial Ablation (~2009) Dilation and curettage X 2 with losses ANAL SURGERY surgical drainage of anal fissure Family History Mother Hyperlipidemia Thyroid disorder Father Essential hypertension Diabetes Personal history of malignant neoplasm prostate Heart disease Hyperlipidemia Myocardial infarction Social History Smoking/Tobacco Use Status: Former Tobacco Use Tobacco: How many years used: 20 Smoking risk assessment performed?: Yes Alcohol Intake: never Drug use: Never Substance use type: does not use Household members: family and other Details: Lives with demented mother and her brother Housing: other current occupation: [employer]; [employer]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 SDOH(Care Management) Screening Will the Patient Participate in the Screening?: Yes Do you worry about having a steady place to live?: no Problems where you live: no known problems In the past 12 months, have you had to go without electric, gas, oil or water in your home?: no Have you or anyone in your house had to go without enough food to eat?: no Has lack of transportation kept you from medical appointments or from doing things needed for daily living?: no Has anyone in your support network made you feel unsafe for any reason?: no
[2023-07-29 11:30] LABS: BUN 6 mg/dL (7-18); Calcium 8.5 mg/dL (8.5-10.1); Chloride 109 mmol/L (98-107); Estimated GFR 69.06 (mL/min/1.73m2); Glucose 131 mg/dL (74-106); Potassium 3.8 mmol/L (3.5-5.1); Sodium 141 mmol/L (136-145)
[2023-07-29 11:41] VITALS: BP 109/74; PULSE 58; RESP 16; TEMP 36; O2SAT 98
[2023-07-29] MEDS: Lactated Ringers 1,000 ML 75 ML IV (12:45)
[2023-07-29 15:59] VITALS: BP 108/71; PULSE 60; RESP 18; TEMP 36.6; O2SAT 97
--- NOTE | 2023-07-29 17:55 | W.PM.PROGNOT ---
Date of Service Date of service: 07/29/23 Time of Service: 17:55 Assessment and Plan Assessment and plan (1) GI bleed: Status: Chronic Assessment and plan: patient will be NPO tonight for EGD tomorrow. Patient recalls prior EGD while in [place] last year visiting family. She does not recall whether or not she had H pylori treatment or not. She has been maintained on PPI and H2 tigist. Qualifiers: GI bleed type/associated pathology: melena Qualified Code(s): K92.1 - Melena (2) Bipolar 2 disorder: Status: Chronic Assessment and plan: Continue her home meds and Wellbutrin, lithium, Seroquel (3) Type 2 diabetes mellitus with peripheral neuropathy: Status: Acute Assessment and plan: I would hold her Invokana while hospitalized and I would hold her NovoLog tomorrow morning preoperatively. If we need to cover her with blood sugars we can give her low-dose Lantus in the morning to get her through the perioperative period but I would not give her NovoLog prior to her EGD as she will be n.p.o. Subjective Subjective Interval history since last seen: No further melena. She still has some crampy abdominal pain. No nausea or vomiting. Exam Narrative Exam Narrative: Janessa is alert, no acute distress Lungs: clear Heart: RRR Abdomen: slight distension, nontender to palpation, normal bowel sounds, no guarding Extremities: no c/c/e Objective Last Vital Signs Temp 36.6 C 07/29/23 15:59 Pulse 60 07/29/23 15:59 Resp 18 07/29/23 15:59 BP 108/71 07/29/23 15:59 Pulse Ox 97 07/29/23 15:59 Laboratory Results - last 24 hr 07/28/23 07/28/23 07/28/23 17:40 18:05 19:58 WBC 9.40 RBC 4.55 Hgb 11.9 11.0 L Hct 38.1 34.8 L MCV 84 MCH 26.2 L MCHC 31.2 L RDW 15.4 H Plt Count 259 MPV 10.9 Immature Gran % 0.4 Neutrophils % 60.1 Lymphocytes % 27.1 Monocytes % 6.8 Eosinophils % 5.2 Basophils % 0.4 Nucleated RBC % 0.0 Absolute Neutrophils 5.64 Absolute Lymphocytes 2.55 Absolute Monocytes 0.64 Absolute Eosinophils 0.49 Absolute Basophils 0.04 ESR 13 PT 10.4 INR 1.0 APTT 26.0 VBG Lactate 1.5 H Sodium 141 Potassium 3.3 L Chloride 107 Carbon Dioxide 27.5 Anion Gap 6.5 BUN 11 Creatinine 1.1 H Est GFR (CKD-EPI 2020) 61.60 Glucose 158 H Calcium 8.6 Magnesium 1.9 Total Bilirubin 0.3 Conjugated Bilirubin 0.1 AST 22 ALT 27 Alkaline Phosphatase 122 H Troponin I < 50 C-Reactive Protein 0.61 H Total Protein 6.8 Albumin 3.3 L Lipase 104 H Urine RBC 0-2 Urine WBC 0-2 Ur Epithelial Cells Few Urine Crystals Negative Urine Bacteria Negative Urine Casts Negative Urine Mucus Negative Ur Culture Indicated? No Patient ABO/Rh O Positive Antibody Screen NEGATIVE 07/28/23 07/29/23 23:00 11:12 WBC RBC Hgb 11.1 L Hct 34.8 L MCV MCH MCHC RDW Plt Count MPV Immature Gran % Neutrophils % Lymphocytes % Monocytes % Eosinophils % Basophils % Nucleated RBC % Absolute Neutrophils Absolute Lymphocytes Absolute Monocytes Absolute Eosinophils Absolute Basophils ESR PT INR APTT VBG Lactate Sodium 141 Potassium 3.8 Chloride 109 H Carbon Dioxide 28.0 Anion Gap 4.0 BUN 6 L Creatinine 1.0 Est GFR (CKD-EPI 2020) 69.06 Glucose 131 H Calcium 8.5 Magnesium Total Bilirubin Conjugated Bilirubin AST ALT Alkaline Phosphatase Troponin I C-Reactive Protein Total Protein Albumin Lipase Urine RBC Urine WBC Ur Epithelial Cells Urine Crystals Urine Bacteria Urine Casts Urine Mucus Ur Culture Indicated? Patient ABO/Rh Antibody Screen Time Spent with Patient Time Spent with Patient: 25-34 minutes Time was spent: preparing to see the patient(eg.review tests), obtaining and/or reviewing separately otained hiistory, ordering medications,tests, procedures, referring, communicating with other health health care administrator, indepentently interpreting results, counseling the patient and care coordination
[2023-07-29 18:49] LABS: HGB 10.9 g/dL (11.2-15.7)
[2023-07-29 20:01] VITALS: BP 121/87; PULSE 57; RESP 18; TEMP 36.6; O2SAT 96
[2023-07-29] MEDS: QUEtiapine 300 MG TAB PO (20:46)
[2023-07-29 23:38] VITALS: BP 137/65; PULSE 75; RESP 18; TEMP 36.7; O2SAT 96
[2023-07-30] VITALS (7 sets, daily range): BP systolic 102–129; BP diastolic 63–80; PULSE 56–95; RESP 16–19; TEMP 36.1–36.8; O2SAT 95–100
[2023-07-30] MEDS: Insulin Aspart 300 UNITS/3 ML PEN SC (00:23)
[2023-07-30] MEDS: Lactated Ringers 1,000 ML 75 ML IV ×2 (02:30→13:43)
[2023-07-30 06:51] LABS: HGB 10.8 g/dL (11.2-15.7)
[2023-07-30 07:09] LABS: ALT 23 U/L (14-59); AST 20 U/L (15-37); Albumin 2.9 g/dL (3.4-5.0); Alkaline Phosphatase 87 U/L (46-116); Anion Gap 6.5 mmol/L (3-11); BUN 4 mg/dL (7-18); Bilirubin, Total 0.3 mg/dL (0.2-1.0); CO2 28.5 mmol/L (21.0-32.0); CREATININE 0.9 mg/dL (0.55-1.02); Calcium 8.7 mg/dL (8.5-10.1); Chloride 111 mmol/L (98-107); Estimated GFR 78.37 (mL/min/1.73m2); Glucose 123 mg/dL (74-106); Potassium 3.6 mmol/L (3.5-5.1); Sodium 146 mmol/L (136-145)
[2023-07-30] MEDS: Budesonide/Formoterol 160/4.5 6 GM 60 PUFF INH IH ×2 (07:43→20:45)
[2023-07-30] MEDS: Tiotropium Bromide-Respimat 10 PUFF INH 2 PUFF IH (07:43)
[2023-07-30] MEDS: Pantoprazole 40 MG VIAL IVP ×2 (08:30→20:00)
[2023-07-30] MEDS: Normal Saline Flush 10 ML SYR IVP ×3 (08:31→20:35)
[2023-07-30] MEDS: Midodrine 2.5 MG TAB 5 MG PO ×3 (09:50→20:01)
[2023-07-30] MEDS: Potassium Chloride Liquid 20 MEQ PKT PO (09:50)
[2023-07-30] MEDS: Famotidine 20 MG TAB PO ×2 (09:50→20:02)
[2023-07-30] MEDS: Cholecalciferol (Vitamin D3) 1,000 UNIT TAB 2000 UNITS PO (09:50)
[2023-07-30] MEDS: buPROPion-XL 150 MG TABCR PO (09:50)
--- NOTE | 2023-07-30 10:37 | PDOC.CMPRO ---
Date of service: 07/30/23 Care Management Progress Note Progress Note Text Progress Note Text: S/O: Janessa was sitting up in a chair when talking with CM. She shared she was sitting in the chair rather than being in bed to see if her pain level would be better and reports she still is in pain. Per MD EGD scheduled for today. Pt shares she is ok being in the hospital and her family as well, to resolve the underlining concern of GI bleeding. CM following. A: Janessa is a 48 year old admitted to [facility] for GI bleeding. P: Janessa will return home with no additional services at this time. She will follow up with her PCP and plan of care as prescribed. She will transport via private vehicle with [id number]. SDOH(Care Management) Screening Will the Patient Participate in the Screening?: Yes Do you worry about having a steady place to live?: no Problems where you live: no known problems In the past 12 months, have you had to go without electric, gas, oil or water in your home?: no Have you or anyone in your house had to go without enough food to eat?: no Has lack of transportation kept you from medical appointments or from doing things needed for daily living?: no Has anyone in your support network made you feel unsafe for any reason?: no
--- NOTE | 2023-07-30 18:46 | W.PM.PROGNOT ---
Date of Service Date of service: 07/30/23 Time of Service: 18:46 Assessment and Plan Assessment and plan (1) Seasonal affective disorder: Status: Acute (2) Psychologic conversion disorder: Status: Acute (3) Anxiety: Status: Chronic (4) Bipolar 2 disorder: Status: Chronic (5) Type 2 diabetes mellitus with peripheral neuropathy: Status: Acute (6) Gastroesophageal reflux disease: Status: Chronic (7) N&V (nausea and vomiting): Status: Acute (8) Nausea and vomiting in adult: Status: Acute (9) GERD (gastroesophageal reflux disease): Status: Chronic (10) Right lower quadrant abdominal pain: Status: Acute (11) Urinary incontinence: Status: Acute (12) Tobacco use: (13) Pacemaker: (14) Anemia due to GI blood loss: Status: Acute Assessment and plan: - Hemoglobin stable Plan EGD in a.m. Informed consent is obtained for the procedural (explained in simple layman's terms that the pt. and/or family could understand) explaining risks vs benefits and alternatives to the procedure and consequences if we do not do the procedure and need/rational for the procedure. Risks include but are not limited to: bleeding, infection, perforation of esophagus, stomach, colon, small intestines, bronchus or trachea, or PTX. This would necessitate emergency surgery to repair the damage w/ possible ostomy; and other associated complications w/ the required surgery. Also complications of anesthesia including aspiration, WV/CVA/. (15) Melena: Status: Acute Objective Last Vital Signs Temp 36.7 C 07/30/23 16:09 Pulse 56 L 07/30/23 16:09 Resp 19 07/30/23 16:09 BP 129/80 07/30/23 16:09 Pulse Ox 97 07/30/23 16:09 Laboratory Results - last 24 hr 07/29/23 07/30/23 18:40 06:30 Hgb 10.9 L 10.8 L Hct 35.0 L 34.0 L Sodium 146 H Potassium 3.6 Chloride 111 H Carbon Dioxide 28.5 Anion Gap 6.5 BUN 4 L Creatinine 0.9 Est GFR (CKD-EPI 2020) 78.37 Glucose 123 H Calcium 8.7 Total Bilirubin 0.3 AST 20 ALT 23 Alkaline Phosphatase 87 Total Protein 6.0 L Albumin 2.9 L Time Spent with Patient Time Spent with Patient: <25 minutes Time was spent: preparing to see the patient(eg.review tests), ordering medications,tests, procedures, referring, communicating with other health field care coordinator, indepentently interpreting results and care coordination
[2023-07-30] MEDS: QUEtiapine 300 MG TAB PO (20:02)
[2023-07-30] MEDS: ACETAMINOPHEN 1,000 MG/100 ML BTL 400 MG IVPB (20:34)
[2023-07-30] MEDS: Ondansetron 4 MG/2 ML VIAL IVP (20:35)
[2023-07-31] VITALS (11 sets, daily range): BP systolic 96–134; BP diastolic 55–83; PULSE 61–89; RESP 15–20; TEMP 36.5–37; O2SAT 94–96; BMI 34.0
[2023-07-31] MEDS: Lactated Ringers 1,000 ML 75 ML IV (02:15)
[2023-07-31] MEDS: ACETAMINOPHEN 1,000 MG/100 ML BTL 400 MG IVPB ×2 (06:11→14:50)
[2023-07-31] MEDS: Ondansetron 4 MG/2 ML VIAL IVP ×2 (06:11→14:49)
[2023-07-31] MEDS: Normal Saline Flush 10 ML SYR IVP ×3 (06:12→14:51)
--- NOTE | 2023-07-31 07:01 | W.PM.PROGNOT ---
Date of Service Date of service: 07/31/23 Time of Service: 07:01 Assessment and Plan Assessment and plan (1) Seasonal affective disorder: Status: Acute (2) Psychologic conversion disorder: Status: Acute (3) Anxiety: Status: Chronic (4) Bipolar 2 disorder: Status: Chronic (5) Type 2 diabetes mellitus with peripheral neuropathy: Status: Acute (6) Gastroesophageal reflux disease: Status: Chronic (7) N&V (nausea and vomiting): Status: Acute (8) Nausea and vomiting in adult: Status: Acute (9) GERD (gastroesophageal reflux disease): Status: Chronic (10) Right lower quadrant abdominal pain: Status: Acute (11) Urinary incontinence: Status: Acute (12) Tobacco use: (13) Pacemaker: (14) Anemia due to GI blood loss: Status: Acute Assessment and plan: Continue NPO EGD this morning for further evaluation. Encouraged activity OOB, sitting in the chair and ambulation as tolerated. (15) Melena: Status: Acute Subjective Subjective Interval history since last seen: Janessa states she has continued with nausea through the night and her abdomen continues to be sore. She is eager to proceed with the EGD. Exam Const General: cooperative, healthy appearing and comfortable Orientation: alert and oriented x3 Resp Effort & Inspection: normal respiratory effort and no cough GI Inspection: normal to inspection Objective Last Vital Signs Temp 36.5 C 07/31/23 03:08 Pulse 85 07/31/23 03:08 Resp 18 07/31/23 03:08 BP 113/74 07/31/23 03:08 Pulse Ox 95 07/31/23 03:08 Laboratory Results - last 24 hr 07/30/23 06:30 Sodium 146 H Potassium 3.6 Chloride 111 H Carbon Dioxide 28.5 Anion Gap 6.5 BUN 4 L Creatinine 0.9 Est GFR (CKD-EPI 2020) 78.37 Glucose 123 H Calcium 8.7 Total Bilirubin 0.3 AST 20 ALT 23 Alkaline Phosphatase 87 Total Protein 6.0 L Albumin 2.9 L Time Spent with Patient Time Spent with Patient: <25 minutes Time was spent: preparing to see the patient(eg.review tests), obtaining and/or reviewing separately otained hiistory and counseling the patient
[2023-07-31 07:37] LABS: HCT 33.8 % (36.0-46.0); HGB 10.6 g/dL (11.2-15.7)
[2023-07-31] MEDS: Budesonide/Formoterol 160/4.5 6 GM 60 PUFF INH IH (07:38)
[2023-07-31] MEDS: Tiotropium Bromide-Respimat 10 PUFF INH 2 PUFF IH (07:38)
--- NOTE | 2023-07-31 08:00 | CMPROGNOTE_ITS ---
Date of service: 07/31/23 Time of Service: 08:00 Care Management Progress Note Progress Note Text Progress Note Text: S/O: Janessa remains NPO awaiting EGD this morning, she is being encouraged to get up out of bed and is sitting up in her chair. CM following. A: Janessa is a 48 year old admitted to [facility] for GI bleeding. P: Janessa will return home with no additional services at this time. She will follow up with her PCP and plan of care as prescribed. She will transport via private vehicle with [id number]. SDOH(Care Management) Screening Will the Patient Participate in the Screening?: Yes Do you worry about having a steady place to live?: no Problems where you live: no known problems In the past 12 months, have you had to go without electric, gas, oil or water in your home?: no Have you or anyone in your house had to go without enough food to eat?: no Has lack of transportation kept you from medical appointments or from doing things needed for daily living?: no Has anyone in your support network made you feel unsafe for any reason?: no
[2023-07-31] MEDS: Pantoprazole 40 MG VIAL IVP (08:50)
--- NOTE | 2023-07-31 09:13 | ANES.PREOP_ITS ---
General Info Date of Service Date Performed: 07/31/23 Height: 5 ft 4 in Weight: 89.811 kg Body Mass Index (BMI): 34.0 Surgical Procedure: Operation Date: 07/31/23 13:50 Proposed Procedure Side Surgeon p Gastroscopy Eunice Erazo, DO Meds Allergies and Home Medications Allergies Allergy/AdvReac Type Severity Reaction Status Date / Time venom-honey bee Allergy Severe Other (See Verified 07/28/23 17:14 Comment) Sulfa (Sulfonamide Allergy HIVES Verified 07/28/23 17:14 Antibiotics) Home Medication Medication Instructions Recorded cholecalciferol (vitamin D3) 50 50 mcg PO DAILY 02/14/21 mcg (2,000 unit) capsule famotidine 20 mg tablet 20 mg PO BID 02/14/21 linaclotide 290 mcg capsule 290 mcg PO DAILY 02/14/21 (Linzess) escitalopram oxalate 20 mg tablet 20 mg PO DAILY AM 11/12/21 midodrine 2.5 mg tablet 2 tab PO TID 11/12/21 lithium carbonate 300 mg 300 mg PO HS 03/19/22 tablet,extended release bupropion HCl 300 mg 24 hr tablet, 150 mg PO DAILY 09/13/22 extended release docusate sodium 100 mg capsule 100 mg PO DAILY 09/13/22 esomeprazole magnesium 40 mg 40 mg PO DAILY 09/13/22 capsule,delayed release sitagliptin phosphate 50 mg tablet 50 mg PO DAILY 01/09/23 (Januvia) ondansetron 4 mg disintegrating 4 mg PO Q8H PRN nausea and 04/13/23 tablet vomiting #30 tabs albuterol sulfate 90 mcg/actuation 2 puff inhalation Q6H PRN 05/01/23 aerosol inhaler bupropion HCl 300 mg 24 hr tablet, 300 mg PO QAM 05/01/23 extended release cetirizine 10 mg tablet 10 mg PO DAILY PRN 05/01/23 clonazepam 0.5 mg tablet 0.5 mg PO DAILY PRN 05/01/23 epinephrine 0.3 mg/0.3 mL 0.3 mg IM ONCE 05/01/23 injection, auto-injector fluticasone propionate 100 1 inh inhalation BID 05/01/23 mcg/actuation blister powder for inhalation fluticasone propionate 230 2 puff inhalation BID 05/01/23 mcg-salmeterol 21 mcg/actuation HFA inhaler (Advair HFA) lactulose 10 gram/15 mL oral 10 g PO PRN 05/01/23 solution linaclotide 72 mcg capsule 72 mcg PO DAILY 05/01/23 (Linzess) loperamide 2 mg capsule 2 mg PO Q6H PRN 05/01/23 metformin 500 mg tablet,extended 500 mg PO BID 05/01/23 release 24 hr potassium chloride 20 mEq oral 20 meq PO DAILY 05/01/23 packet (Klor-Con) quetiapine 300 mg tablet 300 mg PO QHS 05/01/23 sumatriptan succinate 50 mg tablet See Rx Instructions PO .COMPLEX 05/01/23 tiotropium bromide 1.25 2 puff inhalation DAILY 05/01/23 mcg/actuation mist for inhalation (Spiriva Respimat) canagliflozin 100 mg tablet 100 mg PO DAILY 05/25/23 (Invokana) Current Visit Medications: Current Medications Generic Name Dose Route Start Last Admin Trade Name Freq PRN Reason Stop Dose Admin Albuterol Sulfate 2 puff 07/28/23 20:41 Albuterol Hfa 8 Gm 60 Puff Inh IH Q6H PRN PRN Budesonide/Formoterol Fumarate 2 puff 07/29/23 08:30 07/31/23 07:38 Budesonide/Formoterol 160/4.5 6 Gm 60 Puff Inh IH 2 inh BID BLANQUITA Administration Bupropion HCl 150 mg 07/29/23 08:30 07/31/23 07:36 Bupropion-Xl 150 Mg Tabcr PO Not Given DAILY BLANQUITA Cetirizine HCl 10 mg 07/28/23 20:41 Cetirizine 10 Mg Tab PO DAILY PRN PRN Cholecalciferol 2,000 units 07/29/23 08:30 07/31/23 07:35 Cholecalciferol (Vitamin D3) 1,000 Unit Tab PO Not Given DAILY BLANQUITA Device 1 each 07/28/23 21:00 Inhaler, Assist Device MC DIRECTED BLANQUITA Dextrose 0 gm 07/28/23 20:35 Glucose Oral Gel 15 Gm/37.5 Gm Tube PO DIRECTED PRN Dextrose/Water 0 gm 07/28/23 20:35 Dextrose 50%-Water 25 Gm/50 Ml Syr IVP DIRECTED PRN Famotidine 20 mg 07/29/23 08:30 07/31/23 07:35 Famotidine 20 Mg Tab PO Not Given BID BLANQUITA Ringer's Solution 1,000 mls @ 75 mls/hr 07/28/23 20:30 07/31/23 06:39 IV 75 mls/hr INFUSION BLANQUITA Infusion Acetaminophen 1,000 mg in 100 mls @ 400 mls/hr 07/28/23 23:49 07/31/23 06:35 Ofirmev IVPB Infused Q6H PRN PRN Infusion Sodium Chloride 500 mls @ 0 mls/hr 07/29/23 07:30 Saline 500ml Bag IV DIRECTED PRN As Directed IV Miscellaneous Supplies 1 each 07/29/23 07:30 Iv Access IV DIRECTED [facility] Insulin Aspart 0 units 07/29/23 00:00 07/30/23 00:23 Insulin Aspart 300 Units/3 Ml Pen SC 2 units Q6H BLANQUITA Administration Protocol [place] Carbonate 300 mg 07/29/23 20:00 07/30/23 20:00 [place] Carbonate 300 Mg Tabcr PO 300 mg HS BLANQUITA Administration Midodrine 5 mg 07/29/23 08:30 07/31/23 08:51 Midodrine 2.5 Mg Tab PO Not Given TID BLANQUITA Ondansetron HCl 4 mg 07/28/23 23:49 07/31/23 06:11 Ondansetron 4 Mg/2 Ml Vial IVP 4 mg Q4H PRN PRN Administration Pantoprazole Sodium 40 mg 07/29/23 08:30 07/31/23 08:50 Pantoprazole 40 Mg Vial IVP 40 mg BID BLANQUITA Administration Pt's Own Linzess 72 1 each 07/29/23 07:30 07/31/23 07:34 Mcg Capsule ( PO Not Given Linaclotide) DAILY@0730 [facility] Pt's Own Invokana 1 each 07/29/23 08:30 07/29/23 10:52 100mg Tablet ( PO Not Given Canagliflozin) DAILY [facility] Potassium Chloride 20 meq 07/29/23 08:30 07/31/23 07:34 Potassium Chloride Liquid 20 Meq Pkt PO Not Given DAILY [facility] Quetiapine Fumarate 300 mg 07/29/23 20:00 07/30/23 20:02 Quetiapine 300 Mg Tab PO 300 mg HS BLANQUITA Administration Sitagliptin Phosphate 50 mg 07/29/23 08:30 07/31/23 07:34 Sitagliptin 25 Mg Tab PO Not Given DAILY BLANQUITA Sodium Chloride 0 ml 07/29/23 07:30 07/31/23 08:51 Normal Saline Flush 10 Ml Syr IVP 10 ml PRN PRN Administration Tiotropium [place] 2 puff 07/29/23 08:30 07/31/23 07:38 Tiotropium [place]-Respimat 10 Puff Inh IH 2 inh DAILY BLANQUITA Administration PFSH Active Problems Active Problems: Problem Status Onset Code Melena K92.1 Anemia due to GI blood loss D50.0 GI bleed K92.2 Bipolar 2 disorder F31.81 Type 2 diabetes mellitus with peripheral neuropathy E11.42 Chest pain, unspecified R07.9 Anxiety F41.9 Psychologic conversion disorder F44.9 Urinary incontinence R32 Seasonal affective disorder F33.8 Tinea pedis B35.3 Onychomycosis B35.1 PVD (peripheral vascular disease) I73.9 Nail dystrophy L60.3 Type 2 diabetes mellitus E11.9 Shortness of breath R06.02 Muscle pain M79.10 Atypical chest pain R07.89 Calculus of gallbladder with chronic cholecystitis without obstruction K80.10 Gallstones without obstruction of gallbladder K80.20 GERD (gastroesophageal reflux disease) K21.9 Nausea and vomiting in adult R11.[address] of the abdomen R93.5 N&V (nausea and vomiting) R11.2 RLQ abdominal tenderness R10.813 Pre-syncope R55 Discharge planning issues Z02.9 DVT prophylaxis Z29.9 Orthostatic hypotension I95.1 Nonspecific paroxysmal spell R40.4 Dizziness R42 Vertigo R42 Bradycardia R00.1 Near syncope R55 Dehydration E86.0 Syncope R55 Hypomagnesemia E83.42 Hypokalemia E87.6 Right lower quadrant abdominal pain R10.31 Gastroesophageal reflux disease K21.9 TAMARA II (cervical intraepithelial neoplasia II) 02/07/16 N87.1 Asthma J45.909 Depression F32.9 Medical History Medical History (Updated 07/30/23 @ 18:48 by Eunice Erazo DO) Pacemaker Gestational diabetes mellitus High ankle sprain of right lower extremity Tobacco use (10/15/14) quit 01/2016 Acne (04/21/13) Back pain Taking prednisone 60mg QD for 4 days. Currently on day 2. Not feeling it is making much of a difference but she was encouraged to take for the full 4 days. Also suggested she take the muscle relaxer only PRN as it makes her quite drowsy. Encouraged to take at night. To help with rest. Other valenzuela, suggested she increse Aleve to AM & PM dose, then supplement with 1000mg Acetaminophen every 4-6 hours up to a total of 4000mg/day. Suggested ice might help more than heat but either should be limited to only 20 minutes at a time. Use topicals ([place] Gel or Aspercreame with Lidocaine seem to be quite helpful. Try to avoid sitting or standing still for prolonged periods of time. Walking on flat ground is encourage. Surgical History Surgical History (Updated 07/29/23 @ 10:51 by Michael Rangel DO) History of cholecystectomy (~03/2019) History of esophagogastroduodenoscopy (EGD) (~07/2022) History of hysterectomy History of bilateral ligation of fallopian tubes History of discectomy Status post dilation and curettage S/P endometrial ablation irregular bleeding has restarted, neg EM bx 01/2016 discectomy (~2003) Ligation of fallopian tube Endometrial Ablation (~2009) Dilation and curettage X 2 with losses ANAL SURGERY surgical drainage of anal fissure Tobacco Smoking/Tobacco Use Status: Former Tobacco Use Alcohol Alcohol Intake: never Substance Use Substance use: Never Substance use type: does not use Vital Signs and Lab Results Vital Signs Most Recent Vital Signs in EMR: Most Recent Vital Signs Temp Pulse Resp BP Pulse Ox 36.9 C 69 18 96/55 L 96 07/31/23 08:22 07/31/23 08:22 07/31/23 08:22 07/31/23 08:22 07/31/23 08:22 Point of Care Results Point of Care Results: Finger Stick Blood Glucose 108 07/31/23 05:37 Lab Results 07/31/23 07:30 07/30/23 06:30 Blood Type / Crossmatch: 2 Patient ABO/Rh O Positive 07/28/23 Antibody Screen NEGATIVE 07/28/23 Complete Blood Count: 2 White Blood Count 9.40 10^3/uL (4.4-10.8) 07/28/23 18:05 Red Blood Count 4.55 10^6/uL (3.93-5.22) 07/28/23 18:05 Hemoglobin 10.6 g/dL (11.2-15.7) L 07/31/23 07:30 Hematocrit 33.8 % (36.0-46.0) L 07/31/23 07:30 Platelet Count 259 10^3/uL (130-400) 07/28/23 18:05 Venous Blood Lactate 1.5 mmol/L (0.6-1.4) H 07/28/23 18:05 Complete Metabolic Panel: 2 Sodium 146 mmol/L (136-145) H 07/30/23 06:30 Potassium 3.6 mmol/L (3.5-5.1) 07/30/23 06:30 Chloride 111 mmol/L (98-107) H 07/30/23 06:30 Carbon Dioxide 28.5 mmol/L (21.0-32.0) 07/30/23 06:30 BUN 4 mg/dL (7-18) L 07/30/23 06:30 Creatinine 0.9 mg/dL (0.55-1.02) 07/30/23 06:30 Est GFR (CKD-EPI 2020) 78.37 (mL/min/1.73m2) 07/30/23 06:30 Magnesium 1.9 mg/dL (1.8-2.4) 07/28/23 18:05 Calcium 8.7 mg/dL (8.5-10.1) 07/30/23 06:30 Albumin 2.9 g/dL (3.4-5.0) L 07/30/23 06:30 Glucose 123 mg/dL (74-106) H 07/30/23 06:30 C-Reactive Protein 0.61 mg/dL (<or=0.5) H 07/28/23 18:05 Liver Function Panel: 2 Alanine Aminotransferase (ALT/SGPT) 23 U/L (14-59) 07/30/23 06: 30 Aspartate Amino Transf (AST/SGOT) 20 U/L (15-37) 07/30/23 06:30 Coagulation Panel: 2 INR International Normalized Ratio 1.0 (0.9-1.1) 07/28/23 18:0 5 Prothrombin Time 10.4 sec (9.1-11.1) 07/28/23 18:05 Activated Partial Thromboplast Time 26.0 sec (23.6-32.8) 18:05 Cardiac Panel: 2 Troponin I < 50 ng/L (< or =60) 07/28/23 Arterial Blood Gas: 2 No Data to Display Venous Blood Gas: 2 No Data to Display Pancreas Panel: 2 Lipase 104 U/L (16-77) H 07/28/23 18:05 Thyroid Panel: 2 No Data to Display Infectious Disease: 2 Coronavirus (COVID-19)(PCR) Negative (Negative) 07/14/23 21:28 Coronavirus 2019 Source Nasopharynx 07/14/23 21:28 Influenza Virus Type A (PCR) Negative (Negative) 07/14/23 21:2 8 Influenza Virus Type B (PCR) Negative (Negative) 07/14/23 21:2 8 Respiratory Syncytial Virus (PCR) Negative (Negative) 07/14/23 21:28 Blood Cultures: 2 No Data to Display Toxicology Panel: 2 No Data to Display Panel: 2 Serum HCG, Qualitative Negative 07/14/23 21:30 Anesthesia Assessment and Plan Anesthesia History Personal History: No History of Anesthesia Complications Family History: No Family History of Anesthesia Complications Exercise Tolerance Exercise Tolerance: Metabolic Equivalents>4 Pertinent Negatives Pertinent Negatives: No Symptoms of GERD (RX: pepcid) Cardiac & Pulmonary Exam Cardiac Exam: Normal S1/S2 Heart Sounds Pulmonary Exam: Clear Bilateral Breath Sounds Implantable Cardiac Device Does patient have a Pacemaker or an ICD?: No Airway Exam Known Difficult Airway: No Mallampati Class: 3 Mouth Opening: Normal (> 3cm) Thyromental Distance: Greater than 3 cm Neck Range of Motion: Full ROM Neck Circumference: Normal Teeth Condition: Normal Dentition ASA Classification ASA Score: ASA 2 Emergency Case?: No NPO Status NPO Status: NPO Clears >2 hours, Solids >8 hours Status Status: Not Relevant due to Medical History Anesthesia Plan Resuscitation Status: Full Code Anesthesia Technique: General Anesthesia Airway Planned: Natural Airway Monitors Used: Standard Monitors
--- NOTE | 2023-07-31 12:58 | BOWEL_PTH ---
PATIENT: Janessa Covarrubias LOC: U#:[id number] AGE/SX: 48/F ROOM: RE07/28/[address]: Michael Rangel DO : 1975 BED: A DIS: 07/31/2023 SPEC #: [id number] RECD: 07/31/23 13:27 STATUS: STEVEN REQ #: [id number] ARY: 07/31/23 12:[address]: Michael Rangel DEPT: Surgical Specimen RECD BY: Elle Teresa ENTERED: 07/31/23 13:28 SP TYPE: Bowel OTHR DR: BELTRAN JHAVERI, JEM Tissues: 1 - BIOPSY BOWEL 2 - STOMACH BIOPSY 3 - STOMACH BIOPSY 4 - ESOPHAGUS BIOPSY 5 - ESOPHAGUS BIOPSY Procedures: GROSS AND MICRO LEVEL 4 Comments: [id number]
--- NOTE | 2023-07-31 13:14 | ENDO_ITS ---
Date of service: 07/31/23 Time of Service: 13:14 Endoscopy Report DATE OF PROCEDURE: 07/31/23 PRE-OP DIAGNOSIS: GI bleed/anemia POST-OP DIAGNOSIS: other (Hiatal hernia and gastritis) SURGEON: Eunice Erazo ANESTHESIA TYPE: General:No Airway ESTIMATED BLOOD LOSS: 2 PATHOLOGY: other COMPLICATIONS: None DISPOSITION: floor PROCEDURE DESCRIPTION: After informed consent was obtained the patient was take to the procedure room and placed in a supine position. Monitors were applied and a time out was done. The patients name, date of , procedure type, allergies to medications and metal in their body was reviewed. A bite block was placed and the patient was sedated. Once sedated and comfortable the gastroscope was advanced through the oropharynx which was grossly normal into the esophagus. The proximal and mid- esophagus were normal. In the distal esophagus there was small 2 cm sliding hiatal hernia noted. The scope was advanced into the stomach and through the pylorus into the 3rd portion of the duodenum. The duodenum was noted to be normal. Biopsies were done, all specimens are retrieved and no bleeding is noted.. The scope was retracted back into the stomach and biopsies were done to rule out H. pylori. There is a small area of erosion along the greater curvature. It is associated with an area of scar which may be where her previous ulceration was this area was biopsied. The scope was retroflexed. The cardia and fundus were noted to be normal. The scope was retracted back into the esophagus and biopsies were done of the GE junction to rule out Maradiaga's. The Z line was irregular. The GE junction was at 40 cm. The scope was removed and the patient was woken up and taken back to [facility] in stable condition.
--- NOTE | 2023-07-31 13:18 | DSE_ITS ---
Date of service: 07/31/23 Time of Service: 13:18 DS: Diagnosis Discharge Diagnosis (1) Seasonal affective disorder: Status: Acute (2) Psychologic conversion disorder: Status: Acute (3) Anxiety: Status: Chronic (4) Bipolar 2 disorder: Status: Chronic (5) Type 2 diabetes mellitus with peripheral neuropathy: Status: Acute (6) Gastroesophageal reflux disease: Status: Chronic (7) N&V (nausea and vomiting): Status: Acute (8) Nausea and vomiting in adult: Status: Acute (9) Right lower quadrant abdominal pain: Status: Acute (10) Urinary incontinence: Status: Acute (11) Tobacco use: (12) Pacemaker: (13) Anemia due to GI blood loss: Status: Acute (14) Melena: Status: Acute Discharge Plan Disposition Patient Disposition: Home Condition: Improving Discharge Details Reason For Visit: GI Bleeding Admit Date/Time: 07/28/23 21:38 Admit Provider: Michael Rangel Attending Provider: Michael Rangel Primary Care Provider: BELTRAN JHAVERI Hospital Course Hospital Course: 48 y/o female whom presented to the ER with concerns for having dark colored stools and noting bright red blood in the toilet after urinating. She was also having epigastric soreness. She was admitted over night for IV hydration and EGD. She can slowly advance her diet to a regular diet. EGD demonstrated gastritis and esophagitis. Will transition to her to protonix and d/c home. She will need to follow up with Dr. Erazo in 2 weeks. Home Meds and New Rx's Prescriptions: New pantoprazole [Protonix] 40 mg tablet,delayed release (DR/EC) 40 mg PO DAILY Qty: 90 0RF Continued Januvia 50 mg tablet 50 mg PO DAILY docusate sodium 100 mg capsule 100 mg PO DAILY fluticasone propion-salmeterol [Advair HFA] 230-21 mcg/actuation HFA aerosol inhaler 2 puff inhalation BID albuterol sulfate 90 mcg/actuation HFA aerosol inhaler 2 puff inhalation Q6H PRN bupropion HCl 300 mg tablet extended release 24 hr 300 mg PO QAM cetirizine 10 mg tablet 10 mg PO DAILY PRN clonazepam 0.5 mg tablet 0.5 mg PO DAILY PRN epinephrine 0.3 mg/0.3 mL auto-injector 0.3 mg IM ONCE Rx Instructions: as a single dose; may repeat once fluticasone propionate 100 mcg/actuation blister with device 1 inh inhalation BID potassium chloride [Klor-Con] 20 mEq packet 20 meq PO DAILY lactulose 10 gram/15 mL solution 10 g PO PRN Linzess 72 mcg capsule 72 mcg PO DAILY loperamide 2 mg capsule 2 mg PO Q6H PRN metformin 500 mg tablet extended release 24 hr 500 mg PO BID Rx Instructions: 2 tabs in the am and one a hs per pcp quetiapine 300 mg tablet 300 mg PO QHS Spiriva Respimat 1.25 mcg/actuation mist 2 puff inhalation DAILY sumatriptan succinate 50 mg tablet See Rx Instructions PO .COMPLEX Rx Instructions: take 1 tab at onset of headache; if no relief may repeat 1 tab after at least 2 hrs; max = 4 tabs/24 hr PO Invokana 100 mg tablet 100 mg PO DAILY lithium carbonate 300 mg tablet extended release 300 mg PO HS Patient Comments: TAKE 1 TABLET BY MOUTH IN THE EVENING ondansetron 4 mg tablet,disintegrating 4 mg PO Q8H PRN (Reason: nausea and vomiting) Qty: 30 0RF cholecalciferol (vitamin D3) 50 mcg (2,000 unit) capsule 50 mcg PO DAILY Patient Comments: TAKE TWO CAPSULES BY MOUTH EVERY DAY Linzess 290 mcg capsule 290 mcg PO DAILY bupropion HCl 300 mg tablet extended release 24 hr 150 mg PO DAILY escitalopram oxalate 20 mg tablet 20 mg PO DAILY AM Patient Comments: TAKE 1 TABLET BY MOUTH ONCE DAILY midodrine 2.5 mg tablet 2 tab PO TID Patient Comments: TAKE 2 TABLETS BY MOUTH THREE TIMES DAILY Discontinued esomeprazole magnesium 40 mg capsule,delayed release(DR/EC) 40 mg PO DAILY famotidine 20 mg tablet 20 mg PO BID Discharge Instructions Instructions: Gastritis (DC) Referrals: Eunice Erazo DO [OSTEOPATHIC DOCTOR] - Activity:: Activity as Tolerated Equipment/Supplies:: No Equipment Needed Diet:: Normal Diet DS: Summary Time Spent with Patient providing and/or coordinating discharge services: Less than 30 minutes Status at Discharge Functional status at discharge: independent ambulation Overall status at discharge: patient is back to baseline Mental Status: mental status grossly normal Speech and Movement: speech and movement normal Mood: congruent mood Affect: normal affect Quality:SDOH Health Related Social Needs: No Data to Display Exam Const General: cooperative, healthy appearing and comfortable Orientation: alert and oriented x3 Resp Effort & Inspection: normal respiratory effort and no cough GI Inspection: normal to inspection Psych Mental Status: mental status grossly normal Speech and Movement: speech and movement normal Mood: congruent mood Affect: normal affect DS: Data Vitals/I&O Vitals and I&O: Vital Signs Temperature 36.9 C 07/31/23 11:21 Temperature Source Tympanic 07/31/23 11:21 Pulse 74 07/31/23 11:21 Pulse Rhythm Regular 07/31/23 08:30 Pulse 74 07/28/23 20:01 Respiratory Rate 20 07/31/23 11:21 Respiratory Effort Normal, Non-Labored 07/31/23 08:30 Respiratory Depth Normal 07/31/23 08:30 Respiratory Pattern Normal 07/31/23 08:30 Blood Pressure 121/75 07/31/23 11:21 Blood Pressure Mean 71 07/28/23 20:01 Pulse Oximetry 96 07/31/23 11:21 Oxygen Delivery Method Room Air 07/31/23 11:21 Oxygen Flow Rate 0 07/31/23 11:21 Pain Level 0 07/31/23 11:21 Intake & Output 07/30/23 07/31/23 07/31/23 18:59 06:59 18:59 Intake Total 841.25 / 2311.25 1470 / 2311.25 Output Total 1650 / 4000 2350 / 4000 Balance -808.75 / -1688.75 -880 / -1688.75 Weight 89.811 kg Intake: IV 841.25 / 2311.25 1470 / 2311.25 Output: Urine 1650 / 4000 2350 / 4000 Other: Urine Color Yellow Yellow Urine Appearance Clear Clear Clear Urine Odor None Comment purewick Stool Size Moderate Stool Characteristics Formed Brown Voiding Methods Bedside Commode Toilet Data Completed and Pending Labs on day of discharge: Labs from last 24 hours 07/31/23 07:30 Hgb 10.6 L Hct 33.8 L PFSH All Active Problems (Updated 07/30/23 @ 18:48 by Eunice Erazo DO) Melena (Acute) Anemia due to GI blood loss (Acute) GI bleed (Chronic) Bipolar 2 disorder (Chronic) Type 2 diabetes mellitus with peripheral neuropathy (Acute) Chest pain, unspecified (Acute) Anxiety (Chronic) Psychologic conversion disorder (Acute) Urinary incontinence (Acute) Seasonal affective disorder (Acute) Tinea pedis (Acute) Onychomycosis (Acute) PVD (peripheral vascular disease) (Chronic) Nail dystrophy (Acute) Type 2 diabetes mellitus (Chronic) Shortness of breath (Acute) Muscle pain (Acute) Atypical chest pain (Acute) Calculus of gallbladder with chronic cholecystitis without obstruction (Acute) Gallstones without obstruction of gallbladder (Acute) GERD (gastroesophageal reflux disease) (Chronic) Nausea and vomiting in adult (Acute) Abnormal CT of the abdomen (Acute) N&V (nausea and vomiting) (Acute) RLQ abdominal tenderness (Acute) Pre-syncope (Acute) Discharge planning issues (Acute) DVT prophylaxis (Acute) Nonspecific paroxysmal spell (Acute) Dizziness (Acute) Vertigo (Acute) Bradycardia (Acute) Near syncope (Acute) Dehydration (Acute) Syncope (Chronic) Hypomagnesemia (Acute) Hypokalemia (Acute) Right lower quadrant abdominal pain (Acute) Gastroesophageal reflux disease (Chronic) Asthma (Chronic) Depression (Chronic) Takes Fluoxetine 20mg QD with good impact on her depression, denies any SI. Encouraged to continue. to try to tame a riccode. Medical History (Updated 07/30/23 @ 18:48 by Eunice Erazo DO) Pacemaker Gestational diabetes mellitus High ankle sprain of right lower extremity Tobacco use (10/15/14) quit 01/2016 Acne (04/21/13) Back pain Taking prednisone 60mg QD for 4 days. Currently on day 2. Not feeling it is making much of a difference but she was encouraged to take for the full 4 days. Also suggested she take the muscle relaxer only PRN as it makes her quite drowsy. Encouraged to take at night. To help with rest. Other valenzuela, suggested she increse Aleve to AM & PM dose, then supplement with 1000mg Acetaminophen every 4-6 hours up to a total of 4000mg/day. Suggested ice might help more than heat but either should be limited to only 20 minutes at a time. Use topicals (Solopas Gel or Aspercreame with Lidocaine seem to be quite helpful. Try to avoid sitting or standing still for prolonged periods of time. Walking on flat ground is encourage. Surgical History (Updated 04/28/24 @ 10:51 by Michael Rangel, DO) History of cholecystectomy (~03/2019) History of esophagogastroduodenoscopy (EGD) (~07/2022) History of hysterectomy History of bilateral ligation of fallopian tubes History of discectomy Status post dilation and curettage S/P endometrial ablation irregular bleeding has restarted, neg EM bx 01/2016 discectomy (~2003) Ligation of fallopian tube Endometrial Ablation (~2009) Dilation and curettage X 2 with losses ANAL SURGERY surgical drainage of anal fissure Family History Mother Hyperlipidemia Thyroid disorder Father Essential hypertension Diabetes Personal history of malignant neoplasm prostate Heart disease Hyperlipidemia Myocardial infarction Social History Smoking/Tobacco Use Status: Former Tobacco Use Tobacco: How many years used: 20 Smoking risk assessment performed?: Yes Alcohol Intake: never Drug use: Never Substance use type: does not use Household members: family and other Details: Lives with demented mother and her brother Housing: other current occupation: [employer]; [employer]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 Time Spent with Patient Time Spent with Patient: <45 minutes Time was spent: preparing to see the patient(eg.review tests), obtaining and/or reviewing separately otained hiistory and counseling the patient
--- NOTE | 2023-07-31 13:58 | W.ANESPOSTOP ---
Postoperative Evaluation Date, Time and Location Date Performed: 07/31/23 Time Performed: 13:58 Patient Location: PACU Vital Signs Most Recent Imported Vital Signs: Most Recent Vital Signs Temp Pulse Resp BP Pulse Ox 36.7 C 72 16 120/76 95 07/31/23 13:38 07/31/23 13:38 07/31/23 13:38 07/31/23 13:38 07/31/23 13:38 Pain Score Most Recent Pain Score: Most Recent Pain Score Pain Level 0 07/31/23 13:38 Assessment Mental Status: Awake (Alert & Oriented to Patient Baseline) Airway and Respiratory Function: Patent airway with normal (patient baseline) respiratory exam Cardiovascular Function: Hemodynamically Stable Hydration Status: Adequately Hydrated Nausea & Vomiting: No Nausea or Vomiting Pain: Pt. Denies Any Pain Peripheral Nerve Block: Patient did not receive a nerve block
[2023-07-31] MEDS: Midodrine 2.5 MG TAB 5 MG PO (14:50)
--- NOTE | 2023-07-31 15:58 | CMDISCH_ITS ---
Date of service: 07/31/23 Time of Service: 15:58 LACE Index Scoring Tool Questions: Length of Stay (in days): 3 Was the patient admitted via the E.D.?: Yes E.D. Visits: 3 Answers: Total Score: 9 Risk of Readmission: Low Risk Care Management Discharge Plan Reason for Hospitalization: GI bleeding Discharge Plan: Janessa will return home with no additional services at this time. She will follow up with her PCP and plan of care as prescribed. She will trans port via private vehicle with family. Patient/Family Education Needs: Review discharge instructions and limitations, discussion of self care needs including Ask Me Three SDOH Health Related Social Needs: No Data to Display MH Services (Omit if N/A) Current MH Services: [facility] (Established)
--- NOTE | 2023-07-31 17:01 | DSE_ITS ---
Date of service: 07/31/23 Time of Service: 17:02 DS: Diagnosis Discharge Diagnosis (1) Seasonal affective disorder: Status: Acute (2) Psychologic conversion disorder: Status: Acute (3) Anxiety: Status: Chronic (4) Bipolar 2 disorder: Status: Chronic (5) Type 2 diabetes mellitus with peripheral neuropathy: Status: Acute (6) Gastroesophageal reflux disease: Status: Chronic (7) N&V (nausea and vomiting): Status: Acute (8) Nausea and vomiting in adult: Status: Acute (9) Right lower quadrant abdominal pain: Status: Acute (10) Urinary incontinence: Status: Acute (11) Tobacco use: (12) Pacemaker: (13) Anemia due to GI blood loss: Status: Acute (14) Melena: Status: Acute Discharge Plan Disposition Patient Disposition: Home Condition: Improving Discharge Details Reason For Visit: GI Bleeding Admit Date/Time: 07/28/23 21:38 Admit Provider: Michael Rangel Attending Provider: Michael Rangel Primary Care Provider: BELTRAN JHAVERI Hospital Course Hospital Course: 48 y/o female whom presented to the ER with concerns for having dark colored stools and noting bright red blood in the toilet after urinating. She was also having epigastric soreness. She was admitted over night for IV hydration and EGD. She can slowly advance her diet to a regular diet. EGD demonstrated gastritis and esophagitis. Will transition to her to protonix and d/c home. She will need to follow up with Dr. Erazo in 2 weeks. Home Meds and New Rx's Prescriptions: New pantoprazole [Protonix] 40 mg tablet,delayed release (DR/EC) 40 mg PO DAILY Qty: 90 0RF Continued Januvia 50 mg tablet 50 mg PO DAILY docusate sodium 100 mg capsule 100 mg PO DAILY fluticasone propion-salmeterol [Advair HFA] 230-21 mcg/actuation HFA aerosol inhaler 2 puff inhalation BID albuterol sulfate 90 mcg/actuation HFA aerosol inhaler 2 puff inhalation Q6H PRN bupropion HCl 300 mg tablet extended release 24 hr 300 mg PO QAM cetirizine 10 mg tablet 10 mg PO DAILY PRN clonazepam 0.5 mg tablet 0.5 mg PO DAILY PRN epinephrine 0.3 mg/0.3 mL auto-injector 0.3 mg IM ONCE Rx Instructions: as a single dose; may repeat once fluticasone propionate 100 mcg/actuation blister with device 1 inh inhalation BID potassium chloride [Klor-Con] 20 mEq packet 20 meq PO DAILY lactulose 10 gram/15 mL solution 10 g PO PRN Linzess 72 mcg capsule 72 mcg PO DAILY loperamide 2 mg capsule 2 mg PO Q6H PRN metformin 500 mg tablet extended release 24 hr 500 mg PO BID Rx Instructions: 2 tabs in the am and one a hs per pcp quetiapine 300 mg tablet 300 mg PO QHS Spiriva Respimat 1.25 mcg/actuation mist 2 puff inhalation DAILY sumatriptan succinate 50 mg tablet See Rx Instructions PO .COMPLEX Rx Instructions: take 1 tab at onset of headache; if no relief may repeat 1 tab after at least 2 hrs; max = 4 tabs/24 hr PO Invokana 100 mg tablet 100 mg PO DAILY lithium carbonate 300 mg tablet extended release 300 mg PO HS Patient Comments: TAKE 1 TABLET BY MOUTH IN THE EVENING ondansetron 4 mg tablet,disintegrating 4 mg PO Q8H PRN (Reason: nausea and vomiting) Qty: 30 0RF cholecalciferol (vitamin D3) 50 mcg (2,000 unit) capsule 50 mcg PO DAILY Patient Comments: TAKE TWO CAPSULES BY MOUTH EVERY DAY Linzess 290 mcg capsule 290 mcg PO DAILY bupropion HCl 300 mg tablet extended release 24 hr 150 mg PO DAILY escitalopram oxalate 20 mg tablet 20 mg PO DAILY AM Patient Comments: TAKE 1 TABLET BY MOUTH ONCE DAILY midodrine 2.5 mg tablet 2 tab PO TID Patient Comments: TAKE 2 TABLETS BY MOUTH THREE TIMES DAILY Discontinued esomeprazole magnesium 40 mg capsule,delayed release(DR/EC) 40 mg PO DAILY famotidine 20 mg tablet 20 mg PO BID Discharge Instructions Instructions: Gastritis (DC) Stand Alone Forms: Nursing Discharge Form Referrals: Eunice Erazo DO [OSTEOPATHIC DOCTOR] - 08/13/23 1:15 pm Activity:: Activity as Tolerated Equipment/Supplies:: No Equipment Needed Diet:: Normal Diet Discharge Orders Discharge Orders: Discharge Order (Routine); Ordered 07/31/23 Ordered By: Eunice Erazo Discharge Data Discharge Date/Time-TO BE ENTERED AT DEPARTURE: 07/31/23 16:20 DS: Summary Time Spent with Patient providing and/or coordinating discharge services: Less than 30 minutes Status at Discharge Functional status at discharge: independent ambulation Overall status at discharge: patient is progressing back to baseline Mental Status: mental status grossly normal Speech and Movement: speech and movement normal Mood: congruent mood Affect: normal affect Quality:SDOH Health Related Social Needs: No Data to Display Exam Psych Mental Status: mental status grossly normal Speech and Movement: speech and movement normal Mood: congruent mood Affect: normal affect DS: Data Vitals/I&O Vitals and I&O: Vital Signs Temperature 36.7 C 07/31/23 15:37 Temperature Source Tympanic 07/31/23 15:37 Pulse 89 07/31/23 15:37 Pulse Rhythm Regular 07/31/23 08:30 Pulse 74 07/28/23 20:01 Respiratory Rate 20 07/31/23 15:37 Respiratory Effort Normal, Non-Labored 07/31/23 08:30 Respiratory Depth Normal 07/31/23 08:30 Respiratory Pattern Normal 07/31/23 08:30 Blood Pressure 110/68 07/31/23 15:37 Blood Pressure Mean 71 07/28/23 20:01 Pulse Oximetry 96 07/31/23 15:37 Oxygen Delivery Method Room Air 07/31/23 15:37 Oxygen Flow Rate 0 07/31/23 15:37 Pain Level 3 07/31/23 15:37 Intake & Output 07/30/23 07/31/23 07/31/23 23:59 11:59 23:59 Intake Total 1061.25 / 3061.25 1370 / 1370 Output Total 2900 / 2900 1100 / 1700 600 / 1700 Balance -1838.75 / 161.25 270 / -330 -600 / -330 Weight 89.811 kg Intake: IV 941.25 / 2941.25 1370 / 1370 Oral 120 / 120 Output: Urine 2900 / 2900 1100 / 1700 600 / 1700 Other: Urine Color Pale Yellow Yellow Urine Appearance Clear Clear Clear Urine Odor None Comment purewick Stool Size Moderate Stool Characteristics Formed Brown Emesis Description None Voiding Methods Bedside Commode Toilet Data Completed and Pending Labs on day of discharge: Labs from last 24 hours 07/31/23 07:30 Hgb 10.6 L Hct 33.8 L PFSH All Active Problems (Updated 07/31/23 @ 15:34 by Eunice Erazo DO) Hiatal hernia with GERD (Acute) Chronic erosive gastritis (Acute) Melena (Acute) Anemia due to GI blood loss (Acute) GI bleed (Chronic) Bipolar 2 disorder (Chronic) Type 2 diabetes mellitus with peripheral neuropathy (Acute) Chest pain, unspecified (Acute) Anxiety (Chronic) Psychologic conversion disorder (Acute) Urinary incontinence (Acute) Seasonal affective disorder (Acute) Tinea pedis (Acute) Onychomycosis (Acute) PVD (peripheral vascular disease) (Chronic) Nail dystrophy (Acute) Type 2 diabetes mellitus (Chronic) Shortness of breath (Acute) Muscle pain (Acute) Atypical chest pain (Acute) Calculus of gallbladder with chronic cholecystitis without obstruction (Acute) Gallstones without obstruction of gallbladder (Acute) GERD (gastroesophageal reflux disease) (Chronic) Nausea and vomiting in adult (Acute) Abnormal CT of the abdomen (Acute) N&V (nausea and vomiting) (Acute) RLQ abdominal tenderness (Acute) Pre-syncope (Acute) Discharge planning issues (Acute) DVT prophylaxis (Acute) Nonspecific paroxysmal spell (Acute) Dizziness (Acute) Vertigo (Acute) Bradycardia (Acute) Near syncope (Acute) Dehydration (Acute) Syncope (Chronic) Hypomagnesemia (Acute) Hypokalemia (Acute) Right lower quadrant abdominal pain (Acute) Gastroesophageal reflux disease (Chronic) Asthma (Chronic) Depression (Chronic) Takes Fluoxetine 20mg QD with good impact on her depression, denies any SI. Encouraged to continue. to try to tame a nissaiurde. Medical History (Updated 07/31/23 @ 15:34 by Eunice Erazo DO) Pacemaker Gestational diabetes mellitus High ankle sprain of right lower extremity Tobacco use (10/15/14) quit 01/2016 Acne (04/21/13) Back pain Taking prednisone 60mg QD for 4 days. Currently on day 2. Not feeling it is making much of a difference but she was encouraged to take for the full 4 days. Also suggested she take the muscle relaxer only PRN as it makes her quite drowsy. Encouraged to take at night. To help with rest. Other valenzuela, suggested she increse Aleve to AM & PM dose, then supplement with 1000mg Acetaminophen every 4-6 hours up to a total of 4000mg/day. Suggested ice might help more than heat but either should be limited to only 20 minutes at a time. Use topicals (Solopas Gel or Aspercreame with Lidocaine seem to be quite helpful. Try to avoid sitting or standing still for prolonged periods of time. Walking on flat ground is encourage. Surgical History (Updated 07/29/23 @ 10:51 by Michael Rangel DO) History of cholecystectomy (~03/2019) History of esophagogastroduodenoscopy (EGD) (~07/2022) History of hysterectomy History of bilateral ligation of fallopian tubes History of discectomy Status post dilation and curettage S/P endometrial ablation irregular bleeding has restarted, neg EM bx 01/2016 discectomy (~2003) Ligation of fallopian tube Endometrial Ablation (~2009) Dilation and curettage X 2 with losses ANAL SURGERY surgical drainage of anal fissure Family History Mother Hyperlipidemia Thyroid disorder Father Essential hypertension Diabetes Personal history of malignant neoplasm prostate Heart disease Hyperlipidemia Myocardial infarction Social History Smoking/Tobacco Use Status: Former Tobacco Use Tobacco: How many years used: 20 Smoking risk assessment performed?: Yes Alcohol Intake: never Drug use: Never Substance use type: does not use Household members: family and other Details: Lives with demented mother and her brother Housing: other current occupation: [employer]; [employer]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 Time Spent with Patient Time Spent with Patient: <45 minutes Time was spent: preparing to see the patient(eg.review tests), obtaining and/or reviewing separately otained hiistory, ordering medications,tests, procedures, referring, communicating with other health transition of care specialist, indepentently interpreting results, counseling the patient and care coordination
== END 2023-07-31 16:20 | disposition home or self-care (01) ==
LOC: ER 21:47 → MS 23:17
PROVIDERS: Family Medicine; Internal Medicine; Surgery; Admitting Provider Surgery; Emergency Provider Physician Assistant; PCP Nurse Practitioner Family; Visit Provider Surgery
PROC: 0DJ68ZZ Inspection of Stomach, Via Natural or Artificial Opening Endoscopic (ICD-10-PCS; CPT 43235; principal; 2023-07-31 13:45)
DX: K29.71 Gastritis, unspecified, with bleeding (principal); K20.91 Esophagitis, unspecified with bleeding; F31.81 Bipolar II disorder; F44.9 Dissociative and conversion disorder, unspecified; I73.9 Peripheral vascular disease, unspecified; E11.42 Type 2 diabetes mellitus with diabetic polyneuropathy; Z79.84 Long term (current) use of oral hypoglycemic drugs; Z79.1 Long term (current) use of non-steroidal anti-inflammatories (NSAID); M54.50 Low back pain, unspecified; K21.9 Gastro-esophageal reflux disease without esophagitis; J45.909 Unspecified asthma, uncomplicated; Z95.0 Presence of cardiac pacemaker; F41.9 Anxiety disorder, unspecified; R11.2 Nausea with vomiting, unspecified; R10.31 Right lower quadrant pain; R32 Unspecified urinary incontinence; F17.210 Nicotine dependence, cigarettes, uncomplicated; D62 Acute posthemorrhagic anemia
CPT/HCPCS: 43239; 00123; 36415; 80048; 80053; 80076; 83690; 85652; 86850; 86900; 86901; 88305; 94640; 96361; 96365; 96366; 96375; 96376; 99222; 99231; 99238; 99285; 74174; 81003; 81015; 83605; 83735; 84484; 85014; 85018; 85025; 85610; 85730; 86140; 94664; G0378; J0131; J1815; J2001; J2405; J2470; J2704; J3480; J3490

== ENCOUNTER 2023-08-02 19:27 | Emergency (ER) | payer MEDICARE, MEDICAID, SELFPAY ==
[2023-08-02] VITALS (39 sets, daily range): BP systolic 104–137; BP diastolic 65–80; PULSE 66–109; RESP 11–24; TEMP 36.9; O2SAT 94–100
--- NOTE | 2023-08-02 19:15 | RT.EKG_ITS ---
APPROVED REPORT Exam: Resting ECG Reason for Exam: SOB Patient Location: E HR:91 bpm ECG Measurements Heart Rate 91 AXIS [place] 157 P 45 QRSd 83 QRS -1 QT 375 T 24 QTc 462 Conclusion Sinus rhythm...normal P axis, V-rate 60- 99 Low voltage, precordial leads...precordial leads <1.0mV
[2023-08-02 20:09] LABS: Lactate 1.9 mmol/L (0.6-1.4)
[2023-08-02] MEDS: Pantoprazole 40 MG VIAL IVP (20:13)
[2023-08-02 20:14] LABS: Abs Immature Grans 0.03 10^3/uL (0.0-0.06); Absolute Basophil Count 0.02 10^3/uL (0.0-0.2); Absolute Eosinophil Count 0.14 10^3/uL (0.0-0.7); Absolute Lymphocyte Count 1.75 10^3/uL (1.2-3.4); Absolute Monocyte Count 0.49 10^3/uL (0.1-0.8); Absolute Neutrophil Count 7.27 10^3/uL (1.2-6.7); Basophils % 0.2 %; Eosinophils % 1.4 %; HCT 41.6 % (36.0-46.0); HGB 12.8 g/dL (11.2-15.7); Immature Grans % 0.3 %; MCHC 30.8 % (32.0-36.0); MCV 85 fL (80-95); Monocytes % 5.1 %; Platelet Count 295 10^3/uL (130-400); RBC 4.92 10^6/uL (3.93-5.22); RDW 15.5 % (11.7-14.6); RDW-SD 47.4 fL
[2023-08-02] MEDS: Albuterol/Ipratropium 3 ML UPD VIAL UPD (20:21)
[2023-08-02] MEDS: Famotidine 20 MG/2 ML VIAL IVP (20:22)
[2023-08-02] MEDS: Ondansetron 4 MG/2 ML VIAL IVP (20:22)
--- NOTE | 2023-08-02 20:27 | W.ED.GENAD ---
Discharge Plan Discharge Details Chief Complaint: Chest Pain Primary Care Provider: BELTRAN JHAVERI ED Provider: Teresa Hilliard Home Meds and New Rx's Prescriptions: No Action Januvia 50 mg tablet 50 mg PO DAILY docusate sodium 100 mg capsule 100 mg PO DAILY fluticasone propion-salmeterol [Advair HFA] 230-21 mcg/actuation HFA aerosol inhaler 2 puff inhalation BID albuterol sulfate 90 mcg/actuation HFA aerosol inhaler 2 puff inhalation Q6H PRN cetirizine 10 mg tablet 10 mg PO DAILY PRN clonazepam 0.5 mg tablet 0.5 mg PO DAILY PRN epinephrine 0.3 mg/0.3 mL auto-injector 0.3 mg IM ONCE Rx Instructions: as a single dose; may repeat once potassium chloride [Klor-Con] 20 mEq packet 20 meq PO DAILY lactulose 10 gram/15 mL solution 10 g PO PRN Linzess 72 mcg capsule 72 mcg PO DAILY metformin 500 mg tablet extended release 24 hr 500 mg PO BID Rx Instructions: 2 tabs in the am and one a hs per pcp quetiapine 300 mg tablet 300 mg PO QHS Spiriva Respimat 1.25 mcg/actuation mist 2 puff inhalation DAILY Invokana 100 mg tablet 100 mg PO DAILY lithium carbonate 300 mg tablet extended release 300 mg PO HS Patient Comments: TAKE 1 TABLET BY MOUTH IN THE EVENING ondansetron 4 mg tablet,disintegrating 4 mg PO Q8H PRN (Reason: nausea and vomiting) Qty: 30 0RF pantoprazole [Protonix] 40 mg tablet,delayed release (DR/EC) 40 mg PO DAILY Qty: 90 0RF cholecalciferol (vitamin D3) 50 mcg (2,000 unit) capsule 50 mcg PO DAILY Patient Comments: TAKE TWO CAPSULES BY MOUTH EVERY DAY Linzess 290 mcg capsule 290 mcg PO DAILY bupropion HCl 300 mg tablet extended release 24 hr 150 mg PO DAILY escitalopram oxalate 20 mg tablet 20 mg PO DAILY AM Patient Comments: TAKE 1 TABLET BY MOUTH ONCE DAILY midodrine 2.5 mg tablet 2 tab PO TID Patient Comments: TAKE 2 TABLETS BY MOUTH THREE TIMES DAILY HPI General Date/Time Provider Initiated Documentation: 08/02/23 19:32. HPI Narrative: Janessa is a 48-year-old female with history of T2DM, hiatal hernia with GERD, and asthma recently discharged from the hospital on 07/31/2023 with diagnosis of anemia due to GI blood loss from gastritis and esophagitis noted on EGD. She reports she last took her PPI and H2 tigist yesterday, none today. She was supposed to switch to Protonix but says the pharmacy did not have that available. This evening she developed severe generalized abdominal pain with nausea and vomiting. This is radiating to the back; she says this is similar to when she was admitted to the hospital. She denies fever/chills, congestion, sore throat, cough, chest pain, shortness of breath, blood in emesis, change in urine output. She has not had a bowel movement in 4 days since admission to the hospital. She did have some straining today when she tried to have a bowel movement, had a small amount of blood on the toilet paper that she noted. She has had some wheezing, says she had to use her nebulizer earlier today and feels like she could use another treatment. She is a smoker, switching to vaping. Strong family cardiac history (father of AL). Related Data Home Medications Medication Instructions Recorded Confirmed cholecalciferol (vitamin D3) 50 50 mcg PO DAILY 02/14/21 08/02/23 mcg (2,000 unit) capsule linaclotide 290 mcg capsule 290 mcg PO DAILY 02/14/21 08/02/23 (Linzess) escitalopram oxalate 20 mg tablet 20 mg PO DAILY AM 11/12/21 08/02/23 midodrine 2.5 mg tablet 2 tab PO TID 11/12/21 08/02/23 lithium carbonate 300 mg 300 mg PO HS 03/19/22 08/02/23 tablet,extended release bupropion HCl 300 mg 24 hr tablet, 150 mg PO DAILY 09/13/22 08/02/23 extended release docusate sodium 100 mg capsule 100 mg PO DAILY 09/13/22 08/02/23 sitagliptin phosphate 50 mg tablet 50 mg PO DAILY 01/09/23 08/02/23 (Januvia) ondansetron 4 mg disintegrating 4 mg PO Q8H PRN nausea and 04/13/23 08/02/23 tablet vomiting #30 tabs albuterol sulfate 90 mcg/actuation 2 puff inhalation Q6H PRN 05/01/23 08/02/23 aerosol inhaler cetirizine 10 mg tablet 10 mg PO DAILY PRN 05/01/23 08/02/23 clonazepam 0.5 mg tablet 0.5 mg PO DAILY PRN 05/01/23 08/02/23 epinephrine 0.3 mg/0.3 mL 0.3 mg IM ONCE 05/01/23 08/02/23 injection, auto-injector fluticasone propionate 230 2 puff inhalation BID 05/01/23 08/02/23 mcg-salmeterol 21 mcg/actuation HFA inhaler (Advair HFA) lactulose 10 gram/15 mL oral 10 g PO PRN 05/01/23 08/02/23 solution linaclotide 72 mcg capsule 72 mcg PO DAILY 05/01/23 08/02/23 (Linzess) metformin 500 mg tablet,extended 500 mg PO BID 05/01/23 08/02/23 release 24 hr potassium chloride 20 mEq oral 20 meq PO DAILY 05/01/23 08/02/23 packet (Klor-Con) quetiapine 300 mg tablet 300 mg PO QHS 05/01/23 08/02/23 tiotropium bromide 1.25 2 puff inhalation DAILY 05/01/23 08/02/23 mcg/actuation mist for inhalation (Spiriva Respimat) canagliflozin 100 mg tablet 100 mg PO DAILY 05/25/23 08/02/23 (Invokana) pantoprazole 40 mg tablet,delayed 40 mg PO DAILY #90 tabs 07/31/23 08/02/23 release (Protonix) Previous Rx's Medication Instructions Recorded ondansetron 4 mg disintegrating 4 mg PO Q8H PRN nausea and 04/13/23 tablet vomiting #30 tabs pantoprazole 40 mg tablet,delayed 40 mg PO DAILY #90 tabs 07/31/23 release (Protonix) Allergies Allergy/AdvReac Type Severity Reaction Status Date / Time venom-honey bee Allergy Severe Other (See Verified 08/02/23 19:37 Comment) Sulfa (Sulfonamide Allergy HIVES Verified 08/02/23 19:37 Antibiotics) General Stated Complaint: Chest Pain MIKE: 2 Review of Systems Narrative: see HPI Exam Const General: cooperative and healthy appearing Nutritional Appearance: average body habitus Resp Effort & Inspection: normal respiratory effort and able to speak in complete sentences Auscultation: clear to auscultation bilaterally Cardio Rate: regular rate Rhythm: regular rhythm GI Palpation: soft, not firm, no guarding, no hernias, no masses, no pulsatile masses, not rigid and tender (diffuse) Auscultation: normal bowel sounds Course Vital Signs Vital signs: Vital Signs Temperature 36.9 C 08/02/23 19:33 Pulse 101 H 08/02/23 19:33 Respiratory Rate 24 08/02/23 19:33 Blood Pressure 137/79 08/02/23 19:33 Pulse Oximetry 99 08/02/23 19:33 Temperature 36.9 C 08/02/23 19:33 Temperature Source Tympanic 08/02/23 19:33 Pulse 101 H 08/02/23 19:33 Respiratory Rate 18 08/02/23 20:21 Respiratory Effort Normal 08/02/23 19:43 Respiratory Depth Normal 08/02/23 19:43 Respiratory Pattern Normal 08/02/23 19:43 Blood Pressure 137/79 08/02/23 19:33 Blood Pressure Position Supine 08/02/23 19:33 Pulse Oximetry 98 08/02/23 20:21 Oxygen Delivery Method Room Air 08/02/23 20:21 Oxygen Flow Rate 0 08/02/23 20:21 Pain Level 10 08/02/23 19:33 Lab/Test Results Lab/Test Results: Laboratory Tests Range/Units 08/02/23 19:50 WBC (4.4-10.8) 10^3/uL 9.70 RBC (3.93-5.22) 10^6/uL 4.92 Hgb (11.2-15.7) g/dL 12.8 D Hct (36.0-46.0) % 41.6 MCV (80-95) fL 85 MCH (27.0-33.0) pg 26.0 L MCHC (32.0-36.0) % 30.8 L RDW (11.7-14.6) % 15.5 H Plt Count (130-400) 10^3/uL 295 MPV (8.0-11.0) fL 11.0 Immature Gran % % 0.3 Neutrophils % % 75.0 Lymphocytes % % 18.0 Monocytes % % 5.1 Eosinophils % % 1.4 Basophils % % 0.2 Nucleated RBC % (0.0-0.3) % 0.0 Absolute Neutrophils (1.2-6.7) 10^3/uL 7.27 H Absolute Lymphocytes (1.2-3.4) 10^3/uL 1.75 Absolute Monocytes (0.1-0.8) 10^3/uL 0.49 Absolute Eosinophils (0.0-0.7) 10^3/uL 0.14 Absolute Basophils (0.0-0.2) 10^3/uL 0.02 VBG Lactate (0.6-1.4) mmol/L 1.9 H Medical Decision Making Janessa is a 48-year-old female with history of T2DM, hiatal hernia with GERD, and asthma recently discharged from the hospital on 07/31/2023 with diagnosis of anemia due to GI blood loss from gastritis and esophagitis noted on EGD. She reports she last took her PPI and H2 tigist yesterday, none today. She was supposed to switch to Protonix but says the pharmacy did not have that available. This evening she developed severe generalized abdominal pain with nausea and vomiting. This is radiating to the back; she says this is similar to when she was admitted to the hospital. She denies fever/chills, congestion, sore throat, cough, chest pain, shortness of breath, blood in emesis, change in urine output. She has not had a bowel movement in 4 days since admission to the hospital. She did have some straining today when she tried to have a bowel movement, had a small amount of blood on the toilet paper that she noted. She has had some wheezing, says she had to use her nebulizer earlier today and feels like she could use another treatment. She is a smoker, switching to vaping. Strong family cardiac history (father of AL). Physical exam remarkable for uncomfortable patient with generalized abdominal tenderness on palpation. Abdomen is soft, nondistended, with normoactive bowel sounds, no rigidity or guarding. Easy work of breathing, occasional wheezes. Normal heart sounds. Ddx includes but is not limited to: GERD, esophageal spasm, pancreatitis, electrolyte imbalance, dehydration, ACS less likely Heart score 3, indicating low risk of Mace. I independently interpreted the following tests: EKG reassuring, sinus rhythm rate 91. No changes consistent with ischemia. CBC reassuring. CMP notable for mild hypokalemia 3.1. Lactate 1.9. UA reassuring, glucose 500. Initial troponin negative. While in the emergency department Janessa received IV famotidine, pantoprazole, as well as p.o. GI cocktail and Carafate. She reports that the abdominal pain has decreased somewhat. Overall workup today very reassuring. History and presentation consistent with gastritis/GERD, especially as patient has not been able to take her pantoprazole as prescribed. Handoff report given to Dr Reno; pt to be discharged home after second troponin and pain control Quality:[facility] Health Related Social Needs: No Data to Display [facility] All Active Problems (Updated 08/01/23 @ 00:09 by [employer]) Hiatal hernia with GERD (Acute) Chronic erosive gastritis (Acute) Bipolar 2 disorder (Chronic) Type 2 diabetes mellitus with peripheral neuropathy (Acute) Chest pain, unspecified (Acute) Anxiety (Chronic) Psychologic conversion disorder (Acute) Urinary incontinence (Acute) Seasonal affective disorder (Acute) Tinea pedis (Acute) Onychomycosis (Acute) PVD (peripheral vascular disease) (Chronic) Nail dystrophy (Acute) Type 2 diabetes mellitus (Chronic) Shortness of breath (Acute) Muscle pain (Acute) Atypical chest pain (Acute) GERD (gastroesophageal reflux disease) (Chronic) Nausea and vomiting in adult (Acute) Abnormal CT of the abdomen (Acute) N&V (nausea and vomiting) (Acute) Hypokalemia (Acute) Right lower quadrant abdominal pain (Acute) Gastroesophageal reflux disease (Chronic) Asthma (Chronic) Depression (Chronic) Takes Fluoxetine 20mg QD with good impact on her depression, denies any SI. Encouraged to continue. to try to tame a saray. Medical History (Updated 08/01/23 @ 00:09 by [employer]) RLQ abdominal tenderness Pre-syncope Orthostatic hypotension Nonspecific paroxysmal spell Dizziness Vertigo Gallstones without obstruction of gallbladder Calculus of gallbladder with chronic cholecystitis without obstruction Pacemaker Gestational diabetes mellitus High ankle sprain of right lower extremity Acne (04/21/13) Back pain Taking prednisone 60mg QD for 4 days. Currently on day 2. Not feeling it is making much of a difference but she was encouraged to take for the full 4 days. Also suggested she take the muscle relaxer only PRN as it makes her quite drowsy. Encouraged to take at night. To help with rest. Other valenzuela, suggested she increse Aleve to AM & PM dose, then supplement with 1000mg Acetaminophen every 4-6 hours up to a total of 4000mg/day. Suggested ice might help more than heat but either should be limited to only 20 minutes at a time. Use topicals (Solopas Gel or Aspercreame with Lidocaine seem to be quite helpful. Try to avoid sitting or standing still for prolonged periods of time. Walking on flat ground is encourage. Surgical History (Updated 07/29/23 @ 10:51 by Michael Rangel DO) History of cholecystectomy (~03/2019) History of esophagogastroduodenoscopy (EGD) (~07/2022) History of hysterectomy History of bilateral ligation of fallopian tubes History of discectomy Status post dilation and curettage S/P endometrial ablation irregular bleeding has restarted, neg EM bx 01/2016 discectomy (~2003) Ligation of fallopian tube Endometrial Ablation (~2009) Dilation and curettage X 2 with losses ANAL SURGERY surgical drainage of anal fissure Family History Mother Hyperlipidemia Thyroid disorder Father Essential hypertension Diabetes Personal history of malignant neoplasm prostate Heart disease Hyperlipidemia Myocardial infarction Social History Smoking/Tobacco Use Status: Former Tobacco Use Tobacco: How many years used: 20 Smoking risk assessment performed?: Yes Alcohol Intake: never Drug use: Never Substance use type: does not use Household members: family and other Details: Lives with demented mother and her brother Housing: other current occupation: [employer]; [employer]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 Sign Out Sign Out Data: Sign Out Comment: Janessa is a 48-year-old female recently discharged from the hospital for gastritis/esophagitis. Workup today reassuring, only mild hypokalemia noted. She has received IV famotidine, omeprazole, GI cocktail with some improvement in symptoms. IV fluids currently running. Carafate to be given. Awaiting second troponin and pain control. Last updated by Teresa Hilliard at 08/02/23 23:32
[2023-08-02 20:28] LABS: ALT 33 U/L (14-59); AST 30 U/L (15-37); Alkaline Phosphatase 124 U/L (46-116); BUN 9 mg/dL (7-18); Bilirubin, Total 0.4 mg/dL (0.2-1.0); CREATININE 1.3 mg/dL (0.55-1.02); Calcium 8.9 mg/dL (8.5-10.1); Chloride 103 mmol/L (98-107); Estimated GFR 50.41 (mL/min/1.73m2); Glucose 211 mg/dL (74-106); Lipase 48 U/L (16-77); Potassium 3.1 mmol/L (3.5-5.1); Sodium 141 mmol/L (136-145)
[2023-08-02 20:29] LABS: Troponin I < 50 ng/L (< or =60)
[2023-08-02 21:15] LABS: Bilirubin Negative (Negative); Blood Negative (Negative); Clarity Clear (Clear); Glucose 500 mg/dL (Negative); Ketones Negative (Negative); Leukocyte Esterase Negative (Negative); Nitrite Negative (Negative); Urobilinogen 0.2 mg/dL (Up to 0.2); pH 5.5 (5-8)
[2023-08-02] MEDS: Lidocaine 2% Viscous 15 ML CUP (22:12)
[2023-08-02] MEDS: Normal Saline 500 ML 1000 ML IV (22:41)
--- NOTE | 2023-08-02 23:34 | ED.PROG_ITS ---
Date of service: 08/02/23 Time of Service: 23:34 Medical Decision Making This patient was signed out to me. Please see previous notes for H&PI and initial eval. In brief, 48yo F with recent admission for bleeding gastric ulcers presenting for persistent epigastric pain. Hg stable. Signed out pending repeat troponin; if negative would discharge home to existing outpatient followup. Troponin negative. On reassessment she reports feeling somewhat better. Epigastrium remains slightly tender, no rebound or guarding. Not concerning for perforation. Re- sent protonix prescription and prescribed carafate as well. Potassium orally replaced. Advised to followup with PCP and surgery. Discharged home; discharge instructions and return peculations were reviewed with patient who verbalized understanding. All questions were answered and she is in full agreement with the plan. Quality:[facility] Health Related Social Needs: No Data to Display Sign Out Sign Out Data: Sign Out Comment: Janessa is a 48-year-old female recently discharged from the hospital for gastritis/esophagitis. Workup today reassuring, only mild hypokalemia noted. She has received IV famotidine, omeprazole, GI cocktail with some improvement in symptoms. IV fluids currently running. Carafate to be given. Awaiting second troponin and pain control. Last updated by Teresa Hilliard at 08/02/23 23:32 Discharge Plan Disposition Patient Disposition: Home Condition: Good Discharge Details Clinical Impression: Peptic ulcer disease Primary Care Provider: BELTRAN JHAVERI ED Provider: Debbi Reno Home Meds and New Rx's Prescriptions: New pantoprazole [Protonix] 40 mg tablet,delayed release (DR/EC) 40 mg PO DAILY Qty: 30 0RF sucralfate [Carafate] 1 gram tablet 1 g PO BID Qty: 30 0RF Continued Januvia 50 mg tablet 50 mg PO DAILY docusate sodium 100 mg capsule 100 mg PO DAILY fluticasone propion-salmeterol [Advair HFA] 230-21 mcg/actuation HFA aerosol inhaler 2 puff inhalation BID albuterol sulfate 90 mcg/actuation HFA aerosol inhaler 2 puff inhalation Q6H PRN cetirizine 10 mg tablet 10 mg PO DAILY PRN clonazepam 0.5 mg tablet 0.5 mg PO DAILY PRN epinephrine 0.3 mg/0.3 mL auto-injector 0.3 mg IM ONCE Rx Instructions: as a single dose; may repeat once potassium chloride [Klor-Con] 20 mEq packet 20 meq PO DAILY lactulose 10 gram/15 mL solution 10 g PO PRN Linzess 72 mcg capsule 72 mcg PO DAILY metformin 500 mg tablet extended release 24 hr 500 mg PO BID Rx Instructions: 2 tabs in the am and one a hs per pcp quetiapine 300 mg tablet 300 mg PO QHS Spiriva Respimat 1.25 mcg/actuation mist 2 puff inhalation DAILY Invokana 100 mg tablet 100 mg PO DAILY lithium carbonate 300 mg tablet extended release 300 mg PO HS Patient Comments: TAKE 1 TABLET BY MOUTH IN THE EVENING ondansetron 4 mg tablet,disintegrating 4 mg PO Q8H PRN (Reason: nausea and vomiting) Qty: 30 0RF pantoprazole [Protonix] 40 mg tablet,delayed release (DR/EC) 40 mg PO DAILY Qty: 90 0RF cholecalciferol (vitamin D3) 50 mcg (2,000 unit) capsule 50 mcg PO DAILY Patient Comments: TAKE TWO CAPSULES BY MOUTH EVERY DAY Linzess 290 mcg capsule 290 mcg PO DAILY bupropion HCl 300 mg tablet extended release 24 hr 150 mg PO DAILY escitalopram oxalate 20 mg tablet 20 mg PO DAILY AM Patient Comments: TAKE 1 TABLET BY MOUTH ONCE DAILY midodrine 2.5 mg tablet 2 tab PO TID Patient Comments: TAKE 2 TABLETS BY MOUTH THREE TIMES DAILY Discharge Instructions Instructions: Peptic Ulcer (ED) Additional Instructions: Protonix once a day- prescription re-sent. Carafate up to twice a day for symptoms Followup with surgery as already scheduled. Call your primary care doctor today to schedule an appointment within one week to followup on your visit here. Mention that your potassium was low. Return to the emergency department for new or worsening symptoms; new/different/worse pain, vomiting blood, feeling like you are going to pass out, or if you have any other concerns. Stand Alone Forms: Work Release Referrals: BELTRAN JHAVERI [employer] [Primary Care Provider] -
[2023-08-02] MEDS: Sucralfate 1 GM TAB PO (23:38)
[2023-08-02 23:47] LABS: Troponin I < 50 ng/L (< or =60)
[2023-08-03] VITALS: PULSE 72; RESP 20
[2023-08-03 00:01] VITALS: BP 124/70; PULSE 69; RESP 16; O2SAT 98
[2023-08-03 00:02] VITALS: BP 133/70; PULSE 74; RESP 21; TEMP 36.8; O2SAT 98
[2023-08-03 00:10] VITALS: PULSE 70; RESP 16; O2SAT 100
[2023-08-03 00:16] VITALS: BP 118/85; PULSE 76; RESP 23; O2SAT 99
[2023-08-03 00:20] VITALS: PULSE 69; RESP 13; O2SAT 98
[2023-08-03] MEDS: Potassium Chloride 20 MEQ TABCR 40 MEQ PO (00:23)
== END 2023-08-03 00:37 | disposition home or self-care (01) ==
PROVIDERS: Nurse Practitioner Family; Emergency Provider Student in an Organized Health Care Education/Training Program; PCP Nurse Practitioner Family
DX: R10.13 Epigastric pain (principal); R07.9 Chest pain, unspecified; E11.40 Type 2 diabetes mellitus with diabetic neuropathy, unspecified; Z79.84 Long term (current) use of oral hypoglycemic drugs; Z95.0 Presence of cardiac pacemaker; Z82.49 Family history of ischemic heart disease and other diseases of the circulatory system; Z87.891 Personal history of nicotine dependence
CPT/HCPCS: 00123; 80053; 82962; 83690; 93005; 94640; 96374; 99284; 81003; 83605; 84484; 85025; 93010; J2405; J2470; J7620

== ENCOUNTER → 2023-08-13 12:48 | Outpatient (BNVA) | payer MEDICARE, MEDICAID, SELFPAY | PROVIDERS: PCP Nurse Practitioner Family; Referring Provider Nurse Practitioner Family; Visit Provider Surgery | DX: Z48.815 Encounter for surgical aftercare following surgery on the digestive system (principal); K21.9 Gastro-esophageal reflux disease without esophagitis; K44.9 Diaphragmatic hernia without obstruction or gangrene; K29.40 Chronic atrophic gastritis without bleeding | CPT/HCPCS: 99214 ==

== ENCOUNTER 2023-08-14 22:18 | Emergency (ER) | payer MEDICARE, MEDICAID, SELFPAY ==
--- NOTE | 2023-08-14 22:15 | RT.EKG_ITS ---
APPROVED REPORT Exam: Resting ECG Reason for Exam: chest pain Patient Location: E HR:87 bpm ECG Measurements Heart Rate 87 AXIS MS 151 P 49 QRSd 88 QRS 2 QT 376 T 26 QTc 452 Conclusion Sinus rhythm...normal P axis, V-rate 60- 99 Low voltage, precordial leads...precordial leads <1.0mV PHysician: no stemi
[2023-08-14 22:22] VITALS: BP 109/73; PULSE 82; RESP 18; TEMP 36.9; O2SAT 98
--- NOTE | 2023-08-14 22:30 | DI.RAD_ITS ---
Exam(s) XR ABDOMEN FLAT UPRIGHT EXAM: 2D digital imaging was performed. CLINICAL HISTORY: epigastric pain, ulcer, r/o free air. COMPARISON: CT CT ABDOMEN PELVIS CTA from 07/28/2023 TECHNIQUE: Supine and upright views of the abdomen was performed. Four images were obtained. FINDINGS: LUNG BASES: Clear. BOWEL GAS PATTERN: Nondistended. FREE AIR: None. CALCIFICATIONS: No radiopaque calcifications. OSSEOUS STRUCTURES: Normal for age. There is a mild left convex lumbar scoliosis. OTHER FINDINGS: Surgical clips are seen in the right upper quadrant of the abdomen consistent with a prior cholecystectomy. There is a cardiac monitoring device seen overlying the left lower hemithorax . IMPRESSION: No evidence of pneumoperitoneum. DATA REPOSITORY: RADIATION DOSE DELIVERED:
--- NOTE | 2023-08-14 22:33 | W.ED.GENAD ---
Discharge Plan Disposition Patient Disposition: Home Condition: Good Discharge Details Clinical Impression: Epigastric discomfort Primary Care Provider: BELTRAN JHAVERI ED Provider: Christopher Theodore Home Meds and New Rx's Prescriptions: New dicyclomine 10 mg capsule 10 mg PO BID Qty: 7 0RF No Action Januvia 50 mg tablet 50 mg PO DAILY sucralfate [Carafate] 1 gram tablet 1 g PO QID Qty: 120 12RF docusate sodium 100 mg capsule 100 mg PO TID pantoprazole [Protonix] 40 mg tablet,delayed release (DR/EC) 40 mg PO Q12H Qty: 180 4RF fluticasone propion-salmeterol [Advair HFA] 230-21 mcg/actuation HFA aerosol inhaler 2 puff inhalation BID albuterol sulfate 90 mcg/actuation HFA aerosol inhaler 2 puff inhalation Q6H PRN cetirizine 10 mg tablet 10 mg PO DAILY PRN clonazepam 0.5 mg tablet 0.5 mg PO DAILY PRN epinephrine 0.3 mg/0.3 mL auto-injector 0.3 mg IM ONCE Rx Instructions: as a single dose; may repeat once potassium chloride [Klor-Con] 20 mEq packet 20 meq PO DAILY lactulose 10 gram/15 mL solution 10 g PO PRN Linzess 72 mcg capsule 72 mcg PO DAILY metformin 500 mg tablet extended release 24 hr 500 mg PO BID Hold Instructions: pt stopped per provider 08/14/23 Rx Instructions: 2 tabs in the am and one a hs per pcp quetiapine 300 mg tablet 300 mg PO QHS Spiriva Respimat 1.25 mcg/actuation mist 2 puff inhalation DAILY Invokana 100 mg tablet 100 mg PO DAILY lithium carbonate 300 mg tablet extended release 300 mg PO HS Patient Comments: TAKE 1 TABLET BY MOUTH IN THE EVENING ondansetron 4 mg tablet,disintegrating 4 mg PO Q8H PRN (Reason: nausea and vomiting) Qty: 30 0RF cholecalciferol (vitamin D3) 50 mcg (2,000 unit) capsule 50 mcg PO DAILY Patient Comments: TAKE TWO CAPSULES BY MOUTH EVERY DAY Linzess 290 mcg capsule 290 mcg PO DAILY bupropion HCl 300 mg tablet extended release 24 hr 150 mg PO DAILY escitalopram oxalate 20 mg tablet 20 mg PO DAILY AM Patient Comments: TAKE 1 TABLET BY MOUTH ONCE DAILY midodrine 2.5 mg tablet 2 tab PO TID Patient Comments: TAKE 2 TABLETS BY MOUTH THREE TIMES DAILY Discharge Instructions Instructions: Epigastric Pain (ED) Additional Instructions: At this time your workup is returned reassuring. Your blood levels are normal, your heart markers are normal. You have minimal elevation of your pancreas numbers/lipase. There is concern that there is irritation in your stomach causing the current epigastric pain that you have. Your x-ray shows no evidence of rupture or air in your abdomen. Please continue to take your home medications. Please follow-up closely with your surgeon for further discussion of potential outpatient colonoscopy. Please take the Zofran as needed for nausea and the Bentyl as needed for cramping. The Bentyl has been sent to your pharmacy. If you notice any worsening of your symptoms, or any new symptoms such as vomiting, diarrhea, fever, chills, shortness of breath, chest pain, numbness, weakness, or fainting , please return immediately to the emergency department for reevaluation. Please follow up with your primary care provider as soon as possible for reassessment and reevaluation. As always, it was a pleasure participating in your medical care today. Referrals: Eunice Erazo DO [OSTEOPATHIC DOCTOR] - [facility] General Date/Time Provider Initiated Documentation: 08/14/23 22:20. [facility] Narrative: This is a 48-year-old female with a past medical history of gallstones and subsequent cholecystectomy, tubal ligation, GERD, previous atypical heart palpitations currently having an implanted residential monitor (nondefibrillating/nonpacing), asthma, tubal ligation, previous GI bleed, most recently within the past month, who is on dual antacid medication, and Carafate, who presents today for epigastric pain. Patient was just at her surgical clinic yesterday, her Carafate dose was increased. This evening at around 7 PM she developed severe epigastric pain, stabbing in nature. She states that it feels identical to her previous gastric ulcers, but not worse. She does admit to having been constipated previously and then was put on a stool softener and has been having diarrhea for the last 3 days now with some blood in it. She admits to nausea but denies any vomiting. She only ate crackers today. She denies any chest pain. She denies any fever or chills. No other complaints at this time. She has been taking her medications as directed. She states that symptoms feel identical to previous ulcers but not worse. Related Data Home Medications Medication Instructions Recorded Confirmed cholecalciferol (vitamin D3) 50 50 mcg PO DAILY 02/14/21 08/14/23 mcg (2,000 unit) capsule linaclotide 290 mcg capsule 290 mcg PO DAILY 02/14/21 08/14/23 (Linzess) escitalopram oxalate 20 mg tablet 20 mg PO DAILY AM 11/12/21 08/14/23 midodrine 2.5 mg tablet 2 tab PO TID 11/12/21 08/14/23 lithium carbonate 300 mg 300 mg PO HS 03/19/22 08/14/23 tablet,extended release bupropion HCl 300 mg 24 hr tablet, 150 mg PO DAILY 09/13/22 08/14/23 extended release sitagliptin phosphate 50 mg tablet 50 mg PO DAILY 01/09/23 08/14/23 (Januvia) ondansetron 4 mg disintegrating 4 mg PO Q8H PRN nausea and 04/13/23 08/14/23 tablet vomiting #30 tabs albuterol sulfate 90 mcg/actuation 2 puff inhalation Q6H PRN 05/01/23 08/14/23 aerosol inhaler cetirizine 10 mg tablet 10 mg PO DAILY PRN 05/01/23 08/14/23 clonazepam 0.5 mg tablet 0.5 mg PO DAILY PRN 05/01/23 08/14/23 epinephrine 0.3 mg/0.3 mL 0.3 mg IM ONCE 05/01/23 08/14/23 injection, auto-injector fluticasone propionate 230 2 puff inhalation BID 05/01/23 08/14/23 mcg-salmeterol 21 mcg/actuation HFA inhaler (Advair HFA) lactulose 10 gram/15 mL oral 10 g PO PRN 05/01/23 08/14/23 solution linaclotide 72 mcg capsule 72 mcg PO DAILY 05/01/23 08/14/23 (Linzess) metformin 500 mg tablet,extended 500 mg PO BID 05/01/23 08/14/23 release 24 hr potassium chloride 20 mEq oral 20 meq PO DAILY 05/01/23 08/14/23 packet (Klor-Con) quetiapine 300 mg tablet 300 mg PO QHS 05/01/23 08/14/23 tiotropium bromide 1.25 2 puff inhalation DAILY 05/01/23 08/14/23 mcg/actuation mist for inhalation (Spiriva Respimat) canagliflozin 100 mg tablet 100 mg PO DAILY 05/25/23 08/14/23 (Invokana) docusate sodium 100 mg capsule 100 mg PO TID 08/13/23 08/14/23 pantoprazole 40 mg tablet,delayed 40 mg PO Q12H #180 tabs 08/13/23 08/14/23 release (Protonix) sucralfate 1 gram tablet (Carafate) 1 g PO QID #120 tabs 08/13/23 08/14/23 dicyclomine 10 mg capsule 10 mg PO BID #7 caps 08/15/23 Previous Rx's Medication Instructions Recorded ondansetron 4 mg disintegrating 4 mg PO Q8H PRN nausea and 04/13/23 tablet vomiting #30 tabs pantoprazole 40 mg tablet,delayed 40 mg PO Q12H #180 tabs 08/13/23 release (Protonix) sucralfate 1 gram tablet (Carafate) 1 g PO QID #120 tabs 08/13/23 dicyclomine 10 mg capsule 10 mg PO BID #7 caps 08/15/23 Allergies Allergy/AdvReac Type Severity Reaction Status Date / Time venom-honey bee Allergy Severe Other (See Verified 08/14/23 22:29 Comment) Sulfa (Sulfonamide Allergy HIVES Verified 08/14/23 22:29 Antibiotics) General Stated Complaint: Abd Prob MIKE: 3 Review of Systems All systems reviewed & are unremarkable except as noted in HPI and below Exam Narrative Exam Narrative: 1.Const: Well-nourished, Well-developed, appearing stated age 2.Eyes: PERRL, no conjunctival injection, and symmetrical lids. 3.ENT: Atraumatic external nose and ears. Moist MM. Neck: Symmetric, trachea midline, No thyromegaly. 4.CVS: +S1/S2, No murmurs or gallops. Peripheral pulses 2+ and equal in all extremities. Brisk capillary refill in all extremities. 5.RESP: Unlabored respiratory effort. Clear to auscultation bilaterally. No wheezes rales or rhonchi 6.GI: Soft, moderate epigastric discomfort on palpation. No lower abdominal pain. 7.MSK: Normocephalic/Atraumatic, Extremities w/o deformity or ttp No cyanosis or clubbing, Normal movement of all extremities 8.Skin: Warm, Dry. No rashes or lesions. 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 Sensation grossly intact, no focal neurologic deficits. 10.Psych: (AAO) x3. Appropriate mood and affect Course Vital Signs Vital signs: Respiratory Effort Normal, Non-Labored 08/14/23 22:30 Blood Pressure Position Supine 08/14/23 22:22 Oxygen Delivery Method Room Air 08/14/23 22:22 Oxygen Flow Rate 0 08/14/23 22:22 Pain Level 9 08/14/23 22:22 Medical Decision Making This is a 48-year-old female with a past medical history of gallstones and subsequent cholecystectomy, tubal ligation, GERD, previous atypical heart palpitations currently having an implanted residential monitor (nondefibrillating/nonpacing), asthma, tubal ligation, previous GI bleed, most recently within the past month, who is on dual antacid medication, and Carafate, who presents today for epigastric pain. Patient was just at her surgical clinic yesterday, her Carafate dose was increased. This evening at around 7 PM she developed severe epigastric pain, stabbing in nature. She states that it feels identical to her previous gastric ulcers, but not worse. She does admit to having been constipated previously and then was put on a stool softener and has been having diarrhea for the last 3 days now with some blood in it. She admits to nausea but denies any vomiting. She only ate crackers today. She denies any chest pain. She denies any fever or chills. No other complaints at this time. She has been taking her medications as directed. She states that symptoms feel identical to previous ulcers but not worse. Patient demonstrates moderate epigastric pain, no lower abdominal pain. No evidence of an acute surgical abdomen. Symptoms appear most concerning for gastric ulcer, less likely to be Crohn's or ulcerative colitis secondary to the lack of lower abdominal pain or discomfort. Gastric ulcer perforation is low in likelihood but on the differential. Will get upright x-ray to look for free air. Will give Protonix, famotidine, Carafate, GI cocktail, and a Protonix infusion. Will rehydrate monitor closely and reassess. EKG demonstrates no evidence of STEMI. 1:43 AM Laboratory workup has returned, no white count bandemia or left shift. Platelets are normal, hemoglobin level normal at 11.8, actually higher than it has been in the past. Electrolytes normal, renal function stable. Lipase minimally elevated at 88, troponin normal, EKG benign. On reassessment after GI cocktail famotidine, Protonix and Bentyl the patient is feeling improved. Repeat exam continues to show no evidence of an acute surgical abdomen. Minimal crampiness throughout especially in the epigastric region but no evidence of acute surgical abdomen. X-ray shows no evidence of pneumoperitoneum or other significant abnormality. Patient's endoscopy procedure was reviewed, H. pylori testing was negative. There was a scar at that time and some minimal irritation. Concern for potential new irritation. Duodenum was clear. No colonoscopy done yet, however this is and plans for further outpatient assessment. I did briefly discuss the case with surgery, Dr. Erazo will see the patient on an outpatient basis for further follow-up. No indication for emergent CT scan at this time as the patient has no pain at McBurney's point, she has no gallbladder, and there is no evidence of an acute surgical abdomen otherwise on current assessment. She has had no bowel movements here, no bleeding. At this time patient stable for discharge with close follow-up, however I had a long discussion with the patient regarding symptoms for which she should immediately return. I discussed with her the importance of prompt return if she notes continued bleeding or worsening pain. At this time with no signs of hemodynamic instability, severe blood loss, or other abnormality I do feel patient is currently clinically stable for discharge based on current clinical assessment. Discussed red flags for which to return. I have extensively reviewed the treatment plan and discharge instructions with the patient. I have addressed all patient concerns at this time. The patient was made aware of what symptoms to monitor for that would warrant a return to the emergency department. Discussed the plan with the patient, they demonstrate verbal understanding and agreement with our assessment and plan at this time. The documentation in this chart was dictated using [employer] dictation software. Please excuse any dictation errors. FINDINGS: Gastrointestinal tract: Nonobstructive bowel gas pattern. Intraperitoneal space: Normal. No free air. Organs: Post cholecystectomy. Vasculature: Pelvic phleboliths. Bones/joints: There is mild curvature of the lumbar spine convex to the left. IMPRESSION: No pneumoperitoneum. Thank you for allowing us to participate in the care of your patient. Dictated and Authenticated by: Khalif Noe MD 08/15/2023 12:50 AM Eastern Time ([place] & [place]) Quality:SDOH Health Related Social Needs: No Data to Display PFSH All Active Problems (Updated 08/15/23 @ 01:38 by Christopher Theodore DO) Epigastric discomfort (Acute) Peptic ulcer disease (Chronic) Hiatal hernia with GERD (Acute) Chronic erosive gastritis (Acute) Bipolar 2 disorder (Chronic) Type 2 diabetes mellitus with peripheral neuropathy (Acute) Chest pain, unspecified (Acute) Anxiety (Chronic) Psychologic conversion disorder (Acute) Urinary incontinence (Acute) Seasonal affective disorder (Acute) Tinea pedis (Acute) Onychomycosis (Acute) PVD (peripheral vascular disease) (Chronic) Nail dystrophy (Acute) Type 2 diabetes mellitus (Chronic) Shortness of breath (Acute) Muscle pain (Acute) Atypical chest pain (Acute) GERD (gastroesophageal reflux disease) (Chronic) Nausea and vomiting in adult (Acute) Abnormal CT of the abdomen (Acute) N&V (nausea and vomiting) (Acute) Hypokalemia (Acute) Right lower quadrant abdominal pain (Acute) Gastroesophageal reflux disease (Chronic) Asthma (Chronic) Depression (Chronic) Takes Fluoxetine 20mg QD with good impact on her depression, denies any SI. Encouraged to continue. to try to tame a hoiurde. Medical History RLQ abdominal tenderness Pre-syncope Orthostatic hypotension Nonspecific paroxysmal spell Dizziness Vertigo Gallstones without obstruction of gallbladder Calculus of gallbladder with chronic cholecystitis without obstruction Pacemaker Gestational diabetes mellitus High ankle sprain of right lower extremity Acne (04/21/13) Back pain Taking prednisone 60mg QD for 4 days. Currently on day 2. Not feeling it is making much of a difference but she was encouraged to take for the full 4 days. Also suggested she take the muscle relaxer only PRN as it makes her quite drowsy. Encouraged to take at night. To help with rest. Other valenzuela, suggested she increse Aleve to AM & PM dose, then supplement with 1000mg Acetaminophen every 4-6 hours up to a total of 4000mg/day. Suggested ice might help more than heat but either should be limited to only 20 minutes at a time. Use topicals (Solopas Gel or Aspercreame with Lidocaine seem to be quite helpful. Try to avoid sitting or standing still for prolonged periods of time. Walking on flat ground is encourage. Surgical History History of cholecystectomy (~03/2019) History of esophagogastroduodenoscopy (EGD) (~07/2022) History of hysterectomy History of bilateral ligation of fallopian tubes History of discectomy Status post dilation and curettage S/P endometrial ablation irregular bleeding has restarted, neg EM bx 01/2016 discectomy (~2003) Ligation of fallopian tube Endometrial Ablation (~2009) Dilation and curettage X 2 with losses ANAL SURGERY surgical drainage of anal fissure Family History Mother Hyperlipidemia Thyroid disorder Father Essential hypertension Diabetes Personal history of malignant neoplasm prostate Heart disease Hyperlipidemia Myocardial infarction Social History Smoking/Tobacco Use Status: Former Tobacco Use Tobacco: How many years used: 20 Smoking risk assessment performed?: Yes Alcohol Intake: never Drug use: Never Substance use type: does not use Household members: family and other Details: Lives with demented mother and her brother Housing: house 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
[2023-08-14] MEDS: Sucralfate 1 GM TAB PO (22:43)
[2023-08-14 22:48] VITALS: BP 109/73; PULSE 82; RESP 18; TEMP 36.9; O2SAT 98
[2023-08-14] MEDS: Pantoprazole 40 MG VIAL IVP (22:50)
[2023-08-14] MEDS: Lactated Ringers 1,000 ML 1000 ML IV (22:50)
[2023-08-14] MEDS: Famotidine 20 MG/2 ML VIAL IVP (22:50)
[2023-08-14 22:53] LABS: Abs Immature Grans 0.04 10^3/uL (0.0-0.06); Absolute Basophil Count 0.03 10^3/uL (0.0-0.2); Absolute Lymphocyte Count 1.43 10^3/uL (1.2-3.4); Absolute Monocyte Count 0.64 10^3/uL (0.1-0.8); Absolute Neutrophil Count 4.62 10^3/uL (1.2-6.7); Basophils % 0.4 %; Eosinophils % 1.5 %; HCT 37.7 % (36.0-46.0); HGB 11.8 g/dL (11.2-15.7); Immature Grans % 0.6 %; Lymphocytes % 20.8 %; MCH 26.2 pg (27.0-33.0); MCHC 31.3 % (32.0-36.0); MCV 84 fL (80-95); MPV 10.8 fL (8.0-11.0); Monocytes % 9.3 %; Neutrophils % 67.4 %; Platelet Count 262 10^3/uL (130-400); RBC 4.51 10^6/uL (3.93-5.22); RDW 15.2 % (11.7-14.6); RDW-SD 45.9 fL; WBC 6.86 10^3/uL (4.4-10.8)
[2023-08-14] MEDS: PANTOPRAZOLE 80 MG in Normal Saline 100 ML 10 MG IV (23:04)
[2023-08-14 23:11] LABS: ALT 26 U/L (14-59); AST 27 U/L (15-37); Albumin 3.4 g/dL (3.4-5.0); Alkaline Phosphatase 107 U/L (46-116); BUN 9 mg/dL (7-18); Bilirubin, Total 0.3 mg/dL (0.2-1.0); CREATININE 1.3 mg/dL (0.55-1.02); Calcium 8.8 mg/dL (8.5-10.1); Chloride 103 mmol/L (98-107); Estimated GFR 50.41 (mL/min/1.73m2); Glucose 172 mg/dL (74-106); Lipase 88 U/L (16-77); Potassium 3.5 mmol/L (3.5-5.1); Sodium 139 mmol/L (136-145); Total Protein 7.2 g/dL (6.4-8.2); Troponin I < 50 ng/L (< or =60)
[2023-08-15] MEDS: Ondansetron 4 MG/2 ML VIAL IVP (00:28)
--- NOTE | 2023-08-15 00:51 | DI.VRAD_ITS ---
PROCEDURE INFORMATION: Exam: XR Abdomen Exam date and time: 08/14/2023 11:33 PM Age: 48 years old Clinical indication: Abdominal pain; Epigastric; Additional info: Epigastric pain, ulcer, R/O free air TECHNIQUE: Imaging protocol: Radiologic exam of the abdomen. Views: 2 Views. Upright and supine views. COMPARISON: CT ABDOMEN PELVIS CTA 07/28/2023 6:48 PM FINDINGS: Gastrointestinal tract: Nonobstructive bowel gas pattern. Intraperitoneal space: Normal. No free air. Organs: Post cholecystectomy. Vasculature: Pelvic phleboliths. Bones/joints: There is mild curvature of the lumbar spine convex to the left. IMPRESSION: No pneumoperitoneum. Dictated and Authenticated by: Khalif Noe MD. Ordering:NAUN White MD
[2023-08-15] MEDS: Dicyclomine 10 MG CAP PO (01:04)
[2023-08-15] MEDS: ACETAMINOPHEN 1,000 MG/100 ML BTL 400 MG IVPB (01:04)
--- NOTE | 2023-08-15 01:32 | NUR.NOTE ---
Referral faxed to [facility] to f/u this week if possible for bloody stool. Phone cosult with Dr Erazo 08/15/23 early am.Nursing Note:
[2023-08-15] MEDS: Ondansetron O.D.T. 4 MG TABEF, 3 TABS/BTL PO (01:58)
[2023-08-15 02:02] VITALS: BP 109/63; PULSE 72; RESP 16; O2SAT 96
== END 2023-08-15 01:59 | disposition home or self-care (01) ==
PROVIDERS: Emergency Provider Student in an Organized Health Care Education/Training Program; PCP Nurse Practitioner Family
DX: R10.13 Epigastric pain (principal); R19.7 Diarrhea, unspecified; R11.0 Nausea; E11.9 Type 2 diabetes mellitus without complications; Z79.84 Long term (current) use of oral hypoglycemic drugs; Z87.891 Personal history of nicotine dependence; Z90.49 Acquired absence of other specified parts of digestive tract
CPT/HCPCS: 36415; 80053; 83690; 93005; 96361; 96365; 96375; 99284; 74019; 84484; 85025; 93010; J0131; J2405; J2470

== ENCOUNTER → 2023-09-06 09:37 | Outpatient (BNVA) | payer MEDICARE, MEDICAID, SELFPAY | PROVIDERS: PCP Nurse Practitioner Family; Referring Provider Nurse Practitioner Family; Visit Provider Surgery | DX: K62.5 Hemorrhage of anus and rectum (principal); R10.2 Pelvic and perineal pain; K21.9 Gastro-esophageal reflux disease without esophagitis; Z95.0 Presence of cardiac pacemaker | CPT/HCPCS: 99214 ==

== ENCOUNTER → 2023-09-19 11:45 | Outpatient (BNVA) | payer MEDICARE, MEDICAID, SELFPAY | PROVIDERS: PCP Nurse Practitioner Family; Referring Provider Nurse Practitioner Family; Visit Provider Student in an Organized Health Care Education/Training Program ==

== ENCOUNTER 2023-10-05 10:13 | Emergency (ER) | payer MEDICARE, MEDICAID, SELFPAY ==
[2023-10-05] VITALS (36 sets, daily range): BP systolic 111–133; BP diastolic 51–77; PULSE 51–98; RESP 12–26; TEMP 36.6; O2SAT 94–100
--- NOTE | 2023-10-05 10:00 | RT.EKG_ITS ---
APPROVED REPORT Exam: Resting ECG Reason for Exam: Chest pain Patient Location: E HR:64 bpm ECG Measurements Heart Rate 64 AXIS KS 162 P 50 QRSd 85 QRS 4 QT 471 T 10 QTc 487 Conclusion Sinus rhythm...normal P axis, V-rate 60- 99 Low voltage, precordial leads...precordial leads <1.0mV Physician: no stemi
--- NOTE | 2023-10-05 10:35 | W.ED.GENAD ---
Discharge Plan Disposition Patient Disposition: Home Condition: Good Discharge Details Clinical Impression: Hypokalemia Primary Care Provider: BELTRAN JHAVERI ED Provider: Christopher Theodore Home Meds and New Rx's Prescriptions: No Action Januvia 50 mg tablet 50 mg PO DAILY sucralfate [Carafate] 1 gram tablet 1 g PO QID Qty: 120 12RF docusate sodium 100 mg capsule 100 mg PO TID fluticasone propion-salmeterol [Advair HFA] 230-21 mcg/actuation HFA aerosol inhaler 2 puff inhalation BID albuterol sulfate 90 mcg/actuation HFA aerosol inhaler 2 puff inhalation Q6H PRN cetirizine 10 mg tablet 10 mg PO DAILY PRN clonazepam 0.5 mg tablet 0.5 mg PO DAILY PRN epinephrine 0.3 mg/0.3 mL auto-injector 0.3 mg IM ONCE Rx Instructions: as a single dose; may repeat once potassium chloride [Klor-Con] 20 mEq packet 20 meq PO DAILY Linzess 72 mcg capsule 72 mcg PO DAILY quetiapine 300 mg tablet 300 mg PO QHS Spiriva Respimat 1.25 mcg/actuation mist 2 puff inhalation DAILY acetaminophen [Tylenol Extra Strength] 500 mg tablet 500 mg PO Q6H PRN dexlansoprazole [Dexilant] 30 mg capsule,biphase delayed releas 30 mg PO DAILY Qty: 30 6RF Invokana 100 mg tablet 100 mg PO DAILY lithium carbonate 300 mg tablet extended release 300 mg PO HS Patient Comments: TAKE 1 TABLET BY MOUTH IN THE EVENING ondansetron 4 mg tablet,disintegrating 4 mg PO Q8H PRN (Reason: nausea and vomiting) Qty: 30 0RF cholecalciferol (vitamin D3) 50 mcg (2,000 unit) capsule 50 mcg PO DAILY Patient Comments: TAKE TWO CAPSULES BY MOUTH EVERY DAY bupropion HCl 300 mg tablet extended release 24 hr 150 mg PO DAILY escitalopram oxalate 20 mg tablet 20 mg PO DAILY AM Patient Comments: TAKE 1 TABLET BY MOUTH ONCE DAILY midodrine 2.5 mg tablet 2 tab PO TID Patient Comments: TAKE 2 TABLETS BY MOUTH THREE TIMES DAILY Discharge Instructions Instructions: Hypokalemia Additional Instructions: At this time your potassium levels were slightly low. Please continue taking your home potassium that has been prescribed, please also take foods that are high in potassium like bananas, legumes, and avocados. If you notice any worsening of your symptoms, or any new symptoms such as vomiting, diarrhea, fever, chills, shortness of breath, chest pain, numbness, weakness, or fainting , please return immediately to the emergency department for reevaluation. Please follow up with your primary care provider as soon as possible for reassessment and reevaluation. As always, it was a pleasure participating in your medical care today. Referrals: BELTRAN JHAVERI NP [Primary Care Provider] - [facility] General Date/Time Provider Initiated Documentation: 10/05/23 10:15. HPI Narrative: This is a 48-year-old female with a past medical history of gallstones and subsequent cholecystectomy, tubal ligation, GERD, previous atypical heart palpitations currently with an implanted cardiac care nurse (nondefibrillating/nonpacing), asthma, tubal ligation, previous GI bleed, diabetes mellitus type 2, bipolar type II, who presents today for evaluation of chest pain. Patient states that last night when she was out watching the fireworks she developed some mild left upper quadrant epigastric and left lower chest discomfort. She describes it as an achy sensation. It continued through this morning when she awoke. Additionally this morning when she woke up she felt dizzy and lightheaded with activity. She denies any worsening of the chest pain when she gets up moves around or ambulates. She denies any pleuritic component. She admits to nausea but denies any vomiting or diarrhea. She does admit to being slightly constipated currently. She denies any falls or trauma or any new rash. No other complaints at this time. She denies any actual syncope. Related Data Home Medications Medication Instructions Recorded Confirmed cholecalciferol (vitamin D3) 50 50 mcg PO DAILY 02/14/21 10/05/23 mcg (2,000 unit) capsule escitalopram oxalate 20 mg tablet 20 mg PO DAILY AM 11/12/21 10/05/23 midodrine 2.5 mg tablet 2 tab PO TID 11/12/21 10/05/23 lithium carbonate 300 mg 300 mg PO HS 03/19/22 10/05/23 tablet,extended release bupropion HCl 300 mg 24 hr tablet, 150 mg PO DAILY 09/13/22 10/05/23 extended release sitagliptin phosphate 50 mg tablet 50 mg PO DAILY 01/09/23 10/05/23 (Januvia) ondansetron 4 mg disintegrating 4 mg PO Q8H PRN nausea and 04/13/23 10/05/23 tablet vomiting #30 tabs albuterol sulfate 90 mcg/actuation 2 puff inhalation Q6H PRN 05/01/23 10/05/23 aerosol inhaler cetirizine 10 mg tablet 10 mg PO DAILY PRN 05/01/23 10/05/23 clonazepam 0.5 mg tablet 0.5 mg PO DAILY PRN 05/01/23 10/05/23 epinephrine 0.3 mg/0.3 mL 0.3 mg IM ONCE 05/01/23 10/05/23 injection, auto-injector fluticasone propionate 230 2 puff inhalation BID 05/01/23 10/05/23 mcg-salmeterol 21 mcg/actuation HFA inhaler (Advair HFA) linaclotide 72 mcg capsule 72 mcg PO DAILY 05/01/23 10/05/23 (Linzess) potassium chloride 20 mEq oral 20 meq PO DAILY 05/01/23 10/05/23 packet (Klor-Con) quetiapine 300 mg tablet 300 mg PO QHS 05/01/23 10/05/23 tiotropium bromide 1.25 2 puff inhalation DAILY 05/01/23 10/05/23 mcg/actuation mist for inhalation (Spiriva Respimat) canagliflozin 100 mg tablet 100 mg PO DAILY 05/25/23 10/05/23 (Invokana) docusate sodium 100 mg capsule 100 mg PO TID 08/13/23 10/05/23 sucralfate 1 gram tablet (Carafate) 1 g PO QID #120 tabs 08/13/23 10/05/23 acetaminophen 500 mg tablet 500 mg PO Q6H PRN 09/06/23 10/05/23 (Tylenol Extra Strength) dexlansoprazole 30 mg 30 mg PO DAILY #30 caps 09/06/23 10/05/23 capsule,biphase delayed release (Dexilant) Previous Rx's Medication Instructions Recorded ondansetron 4 mg disintegrating 4 mg PO Q8H PRN nausea and 04/13/23 tablet vomiting #30 tabs sucralfate 1 gram tablet (Carafate) 1 g PO QID #120 tabs 08/13/23 dexlansoprazole 30 mg 30 mg PO DAILY #30 caps 09/06/23 capsule,biphase delayed release (Dexilant) Allergies Allergy/AdvReac Type Severity Reaction Status Date / Time venom-honey bee Allergy Severe Other (See Verified 10/05/23 10:22 Comment) Sulfa (Sulfonamide Allergy HIVES Verified 10/05/23 10:22 Antibiotics) General Stated Complaint: Chest Pain MIKE: 3 Review of Systems All systems reviewed & are unremarkable except as noted in HPI and below Exam Narrative Exam Narrative: 1.Const: Well-nourished, Well-developed, appearing stated age 2.Eyes: PERRL, no conjunctival injection, and symmetrical lids. 3.ENT: Atraumatic external nose and ears. Notably dry MM. Neck: Symmetric, trachea midline, No thyromegaly. 4.CVS: +S1/S2, No murmurs or gallops. Peripheral pulses 2+ and equal in all extremities. Brisk capillary refill in all extremities. Mild reproducible left anterior chest wall discomfort on palpation. No rash. 5.RESP: Unlabored respiratory effort. Clear to auscultation bilaterally. No wheezes rales or rhonchi 6.GI: Soft, Nondistended, No hepatosplenomegaly. No guarding or rebound. Mild left upper quadrant epigastric tenderness. 7.MSK: Normocephalic/Atraumatic, Extremities w/o deformity or ttp No cyanosis or clubbing, Normal movement of all extremities 8.Skin: Warm, Dry. No rashes or lesions. 9.Neuro: bobbin dumper II-XII grossly intact. Sensation grossly intact, no focal neurologic deficits. 10.Psych: (AAO) x3. Appropriate mood and affect Course Vital Signs Vital signs: Vital Signs Temperature 36.6 C 10/05/23 10:19 Pulse 63 10/05/23 10:19 Respiratory Rate 18 10/05/23 10:19 Blood Pressure 130/74 10/05/23 10:19 Pulse Oximetry 97 10/05/23 10:19 Temperature 36.6 C 10/05/23 10:19 Temperature Source Temporal Artery Scan 10/05/23 10:19 Pulse 63 10/05/23 10:19 Respiratory Rate 18 10/05/23 10:19 Blood Pressure 130/74 10/05/23 10:19 Pulse Oximetry 97 10/05/23 10:19 Oxygen Delivery Method Room Air 10/05/23 10:19 Oxygen Flow Rate 0 10/05/23 10:19 Medical Decision Making This is a 48-year-old female with a past medical history of gallstones and subsequent cholecystectomy, tubal ligation, GERD, previous atypical heart palpitations currently with an implanted cardiac care nurse (nondefibrillating/nonpacing), asthma, tubal ligation, previous GI bleed, diabetes mellitus type 2, bipolar type II, who presents today for evaluation of chest pain. Patient states that last night when she was out watching the fireworks she developed some mild left upper quadrant epigastric and left lower chest discomfort. She describes it as an achy sensation. It continued through this morning when she awoke. Additionally this morning when she woke up she felt dizzy and lightheaded with activity. She denies any worsening of the chest pain when she gets up moves around or ambulates. She denies any pleuritic component. She admits to nausea but denies any vomiting or diarrhea. She does admit to being slightly constipated currently. She denies any falls or trauma or any new rash. No other complaints at this time. She denies any actual syncope. Exam demonstrates notably dry mucous membranes, left upper quadrant tenderness, mild reproducible left chest wall tenderness. Concern for gastric irritation and/or ulcer especially understanding her chronic history of this. EKG shows no STEMI. PE and dissection appear clinically unlikely. ACS is unlikely but on the differential. With her notably dry mucous membranes I suspect that much of her lightheadedness is more likely due to dehydration rather than cardiac dysrhythmia. We will rehydrate with a liter of lactated Ringer's, we will interrogate her cardiac care nurse, monitor closely evaluate for concerning etiologies and reassess. 3:05 PM Interrogation of the patient's cardiac care nurse shows no evidence of episodes of V-fib, V. tach, a flutter, atrial tachycardia. CBC is unremarkable, patient's potassium is low at 2.8, renal function stable. Thyroid function troponin and repeat troponin are both normal. No evidence of STEMI. Urinalysis negative for infection. On reassessment after fluids and antiemetics patient feels much better. She feels well and would like to go home. Symptoms inconsistent with ACS, PE or dissection. Symptoms inconsistent with life-threatening dysrhythmia. Patient will be discharged home, she received 20 of IV potassium and 40 of oral potassium. Discussed red flags for which to return. I have extensively reviewed the treatment plan and discharge instructions with the patient. I have addressed all patient concerns at this time. The patient was made aware of what symptoms to monitor for that would warrant a return to the emergency department. Discussed the plan with the patient, they demonstrate verbal understanding and agreement with our assessment and plan at this time. The documentation in this chart was dictated using [employer] dictation software. Please excuse any dictation errors. Quality:SDOH Health Related Social Needs: No Data to Display PFSH All Active Problems (Updated 10/05/23 @ 15:04 by Christopher Theodore DO) Hypokalemia (Acute) Rectal bleeding (Acute) Suprapubic pain (Acute) Hiatal hernia with GERD (Acute) Chronic erosive gastritis (Acute) Bipolar 2 disorder (Chronic) Type 2 diabetes mellitus with peripheral neuropathy (Acute) Chest pain, unspecified (Acute) Anxiety (Chronic) Psychologic conversion disorder (Acute) Urinary incontinence (Acute) Seasonal affective disorder (Acute) Tinea pedis (Acute) Onychomycosis (Acute) PVD (peripheral vascular disease) (Chronic) Nail dystrophy (Acute) Type 2 diabetes mellitus (Chronic) Shortness of breath (Acute) Muscle pain (Acute) Atypical chest pain (Acute) GERD (gastroesophageal reflux disease) (Chronic) Nausea and vomiting in adult (Acute) Abnormal CT of the abdomen (Acute) N&V (nausea and vomiting) (Acute) Hypokalemia (Acute) Right lower quadrant abdominal pain (Acute) Gastroesophageal reflux disease (Chronic) Asthma (Chronic) Depression (Chronic) Takes Fluoxetine 20mg QD with good impact on her depression, denies any SI. Encouraged to continue. to try to tame a saray. Medical History RLQ abdominal tenderness Pre-syncope Orthostatic hypotension Nonspecific paroxysmal spell Dizziness Vertigo Gallstones without obstruction of gallbladder Calculus of gallbladder with chronic cholecystitis without obstruction Pacemaker Gestational diabetes mellitus High ankle sprain of right lower extremity Acne (04/21/13) Back pain Taking prednisone 60mg QD for 4 days. Currently on day 2. Not feeling it is making much of a difference but she was encouraged to take for the full 4 days. Also suggested she take the muscle relaxer only PRN as it makes her quite drowsy. Encouraged to take at night. To help with rest. Other valenzuela, suggested she increse Aleve to AM & PM dose, then supplement with 1000mg Acetaminophen every 4-6 hours up to a total of 4000mg/day. Suggested ice might help more than heat but either should be limited to only 20 minutes at a time. Use topicals (Solopas Gel or Aspercreame with Lidocaine seem to be quite helpful. Try to avoid sitting or standing still for prolonged periods of time. Walking on flat ground is encourage. Surgical History History of cholecystectomy (~03/2019) History of esophagogastroduodenoscopy (EGD) (~07/2022) History of hysterectomy History of bilateral ligation of fallopian tubes History of discectomy Status post dilation and curettage S/P endometrial ablation irregular bleeding has restarted, neg EM bx 01/2016 discectomy (~2003) Ligation of fallopian tube Endometrial Ablation (~2009) Dilation and curettage X 2 with losses ANAL SURGERY surgical drainage of anal fissure Family History Mother Hyperlipidemia Thyroid disorder Father Essential hypertension Diabetes Personal history of malignant neoplasm prostate Heart disease Hyperlipidemia Myocardial infarction Social History Smoking/Tobacco Use Status: Former Tobacco Use Quit Date: 04/02/22 Tobacco: How many years used: 20 Smoking risk assessment performed?: Yes Alcohol Intake: never Drug use: Never Substance use type: does not use Household members: family and other Details: Lives with demented mother and her brother Housing: house 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
[2023-10-05 10:47] LABS: Abs Immature Grans 0.02 10^3/uL (0.0-0.06); Absolute Basophil Count 0.03 10^3/uL (0.0-0.2); Absolute Eosinophil Count 0.27 10^3/uL (0.0-0.7); Absolute Lymphocyte Count 1.69 10^3/uL (1.2-3.4); Absolute Monocyte Count 0.34 10^3/uL (0.1-0.8); Absolute Neutrophil Count 4.28 10^3/uL (1.2-6.7); Basophils % 0.5 %; Eosinophils % 4.1 %; HCT 38.9 % (36.0-46.0); HGB 11.9 g/dL (11.2-15.7); Immature Grans % 0.3 %; Lymphocytes % 25.5 %; MCH 24.9 pg (27.0-33.0); MCHC 30.6 % (32.0-36.0); MCV 82 fL (80-95); Monocytes % 5.1 %; Neutrophils % 64.5 %; Platelet Count 281 10^3/uL (130-400); RBC 4.77 10^6/uL (3.93-5.22); RDW 14.5 % (11.7-14.6); RDW-SD 42.5 fL; WBC 6.63 10^3/uL (4.4-10.8)
[2023-10-05 11:02] LABS: Prothrombin Time 10.4 sec (9.1-11.1)
[2023-10-05 11:08] LABS: Bilirubin Negative (Negative); Blood Negative (Negative); Clarity Clear (Clear); Glucose Negative (Negative); Ketones Negative (Negative); Leukocyte Esterase Negative (Negative); Nitrite Negative (Negative); Specific Gravity 1.015 (1.005-1.025); Urobilinogen 0.2 mg/dL (Up to 0.2)
--- NOTE | 2023-10-05 11:10 | DI.RAD_ITS ---
Exam(s) XR PORTABLE CHEST AP EXAM: XR PORTABLE CHEST AP CLINICAL HISTORY: left sided chest pain. TECHNIQUE: 2D digital imaging was performed. COMPARISON: Prior chest x-ray 07/14/2023. FINDINGS: Single AP portable view. Left anterior chest wall environmental monitoring specialist device again noted. Heart size is upper normal. The mediastinum is not widened. Lungs are clear. No infiltrates nor obvious pleural effusions. No pulmonary edema. IMPRESSION: No acute pulmonary findings on this single AP portable view of the chest. DATA REPOSITORY: RADIATION DOSE DELIVERED:
[2023-10-05 11:16] LABS: ALT 15 U/L (14-59); AST 17 U/L (15-37); Albumin 3.3 g/dL (3.4-5.0); Alkaline Phosphatase 113 U/L (46-116); Anion Gap 8.6 mmol/L (3-11); BUN 5 mg/dL (7-18); Bilirubin, Total 0.25 mg/dL (0.2-1.0); CO2 25.4 mmol/L (21.0-32.0); CREATININE 1.1 mg/dL (0.55-1.02); Chloride 106 mmol/L (98-107); Glucose 190 mg/dL (74-106); Lipase 65 U/L (16-77); Sodium 140 mmol/L (136-145); TSH (W/Ref FT4) 3.27 uIU/mL (0.36-3.74); Troponin I < 50 ng/L (< or =60)
[2023-10-05 11:19] LABS: Potassium 2.8 mmol/L (3.5-5.1)
[2023-10-05 11:24] LABS: PTT Activated 18.9 sec (23.6-32.8)
[2023-10-05] MEDS: Sucralfate 1 GM TAB PO (11:31)
[2023-10-05] MEDS: ACETAMINOPHEN 1,000 MG/100 ML BTL 400 MG IVPB (11:32)
[2023-10-05] MEDS: Metoclopramide 10 MG/2 ML VIAL 20 MG IVP (11:33)
[2023-10-05] MEDS: Pantoprazole 40 MG VIAL IVP (11:33)
[2023-10-05] MEDS: Lactated Ringers 1,000 ML 1000 ML IV (11:33)
[2023-10-05] MEDS: Famotidine 20 MG/2 ML VIAL IVP (11:34)
[2023-10-05] MEDS: POTASSIUM CHLORIDE 20 MEQ/100 ML BAG 50 MEQ IVINF (12:14)
[2023-10-05] MEDS: Potassium Chloride Liquid 20 MEQ PKT (12:23)
[2023-10-05 14:07] LABS: Troponin I < 50 ng/L (< or =60)
[2023-10-05] MEDS: Ondansetron O.D.T. 4 MG TABEF, 3 TABS/BTL PO (15:14)
== END 2023-10-05 15:22 | disposition home or self-care (01) ==
PROVIDERS: Emergency Provider Student in an Organized Health Care Education/Training Program; PCP Nurse Practitioner Family
DX: E87.6 Hypokalemia (principal); R42 Dizziness and giddiness; R07.9 Chest pain, unspecified; E11.40 Type 2 diabetes mellitus with diabetic neuropathy, unspecified; Z87.891 Personal history of nicotine dependence
CPT/HCPCS: 36415; 80053; 83690; 93005; 96365; 96366; 96367; 96375; 99285; 71045; 81003; 83735; 84443; 84484; 85025; 85610; 85730; 93010; 99284; J0131; J2470; J2765; J3480

== ENCOUNTER 2023-11-08 22:01 | Outpatient (REF) | payer MEDICARE, MEDICAID, SELFPAY ==
[2023-11-08 18:59] LABS: Bilirubin Negative (Negative); Blood Negative (Negative); Clarity Clear (Clear); Glucose 500 mg/dL (Negative); Ketones Negative (Negative); Leukocyte Esterase Negative (Negative); Nitrite Negative (Negative); Urobilinogen 0.2 mg/dL (Up to 0.2); pH 5.5 (5-8)
[2023-11-08 19:19] LABS: ALT 16 U/L (14-59); AST 24 U/L (15-37); Albumin 3.6 g/dL (3.4-5.0); Alkaline Phosphatase 117 U/L (46-116); BUN 6 mg/dL (7-18); Bilirubin, Total 0.32 mg/dL (0.2-1.0); CREATININE 1.1 mg/dL (0.55-1.02); Calcium 9.3 mg/dL (8.5-10.1); Chloride 107 mmol/L (98-107); Glucose 149 mg/dL (74-106); Potassium 3.6 mmol/L (3.5-5.1); Sodium 142 mmol/L (136-145); Total Protein 7.5 g/dL (6.4-8.2)
--- OUTSIDE RECORDS SUMMARY | 2023-11-08 22:03 | XMS_ITS | Clinical Summary ---
Author Organization [facility] [place] [address] Care Team Providers Care Senior Computer Specialist Name Role Phone Gertrudis Li Isidoro SHAH Primary Care Provider [phone] Allergies Active Allergy Reactions Criticality Noted Date Comments Sulfa (Sulfonamide Antibiotics) Venom-Honey Bee Anaphylaxis High 09/19/2023 Medications Medication Sig Dispensed Refills Start Date End Date Status CIS Free Text Med - Albuterol 2 Puff(s), Inh, Q4-6H 05/11/2005 Active fluticasone (FLOVENT HFA) 44 mcg/Actuation inhaler 2 Puff(s), Inh, Twice daily 05/11/2005 Active buPROPion (WELLBUTRIN SR) 150 mg 12 hr tablet 150MG, PO, Twice daily 03/19/2006 Active traZODone (DESYREL) 50 mg tablet 25MG = 1/2 Tablet(s), PO, QHS 03/19/2006 Active epiNEPHrine (EPIPEN) 0.3 mg/0.3 mL injection 0.3MG/0.3ML, IM, as directed 07/14/2005 Active naproxen (NAPROSYN) 500 mg tablet 500MG = 1 Tablet(s), PO, Twice daily 01/19/2006 Active Norgestimate-Ethinyl Estradiol (ORTHO TRI-CYCLEN LO) 0.18/0.215/0.25 mg-25 mcg Tab 1 Tablet(s), PO, Once daily 03/19/2006 Active Active Problems Problem Noted Date Diagnosed Date Type 2 diabetes mellitus 09/19/2023 Syncope and collapse 09/19/2023 Shortness of breath 09/19/2023 Pacemaker 09/19/2023 Overview (09/19/2023): Implanted loop recorder - previously followed by cardiology in [place], [place] Orthostatic hypotension 09/19/2023 Nail dystrophy 09/19/2023 Major depressive disorder, recurrent 09/19/2023 IBS (irritable bowel syndrome) 09/19/2023 Heart palpitations 09/19/2023 Gastroparesis 09/19/2023 Gastroesophageal reflux disease 09/19/2023 Calculus of gallbladder with chronic cholecystitis without obstruction 09/19/2023 Benign paroxysmal positional vertigo 09/19/2023 Alcohol use with intoxication with complication 09/19/2023 Former cigarette smoker 09/19/2023 Overview (09/19/2023): Quit 2021 Daily urinary incontinence 09/19/2023 Resolved Problems Problem Noted Date Diagnosed Date Resolved Date Sternal pain 09/19/2023 09/19/2023 Serum lithium level below therapeutic range 09/19/2023 09/19/2023 S/P endometrial ablation 09/19/2023 History of hysterectomy 09/19/202308/31 Pruritic erythematous rash 09/19/2023 0 09/19/2023 Pre-syncope 09/19/2023 09/19/2023 Nonspecific paroxysmal spell 09/19/2023 09/19/2023 Hypomagnesemia 09/19/2023 09/19/2023 Hypokalemia 09/19/2023 09/19/2023 History of esophagogastroduodenoscopy (EGD) 09/19/2023 09/19/2023 History of discectomy 09/19/20232023 History of cholecystectomy 09/19/2023 0 09/19/2023 History of bilateral ligatio n of fallopian tubes 09/19/2023 09/19/2023 High ankle sprain of right lower extremity 09/19/2023 09/19/2023 Gestational diabetes mellitus 09/19/2023 09/19/2023 Gallstones without obstruction of gallbladder 09/19/1909/19/2023 Elevated hemoglobin A1c measurement 09/19/2023 09/19/2023 Vertigo 09/19/2023 09/19/2023 Diarrhea 09/19/2023 09/19/2023 Bradycardia 09/19/2023 09/19/2023 Backache 09/19/2023 09/19/2023 Atypical chest pain 09/19/2023 09/19/19 24 Asthma 09/19/2023 09/19/2023 TAMARA II (cervical intraepithe lial neoplasia II) 02/07/2016 09/19/2023 Tobacco use 10/15/2014 09/19/2023 Overview (09/19/2023): Quit 2021 Acne 04/21/2013 09/19/2023 Encounters Date Type Department Care Team Description 10/15/2023 Transcribe Orders eDH Incoming Referrals [phone] Eunice Erazo, DO Heartburn 09/19/2023 Abstract Cardiology at [address] [phone] Griselda Houser, RN Pacemaker; Tobacco use; Former cigarette smoker 09/19/2023 Telephone Cardiology at [address] [phone] Griselda Houser, tax compliance manager; Syncope and Collapse from Last 3 Months Immunizations Name Administration Dates Next Due Influenza Vaccine, Whole 02/16/2005 TD Adult 04/11/2005 Social History Tobacco Use Types Packs/Day Years Used Date Smoking Tobacco: Never Assessed Sex and Gender Information Value Date Recorded Sex Assigned at Not on file Gender Identity Not on file Sexual Orientation Not on file Plan of Treatment Upcoming Encounters Date Type Department Care Team (Late st Contact Info) Description 12/12/2023 11:00 AM EDT Office Visit Cardiology at [address] [phone] Austin Loredo MD [facility] [place] [address] Health Maintenance Due Date Last Done Comments CT Colonography 1974 Colonoscopy 1974 Colorectal Cancer Screening 1974 FIT DNA 1974 FIT 1974 Sigmoidoscopy (10 year) with FIT yearly 1974 Sigmoidoscopy 1974 Pneumococcal Vaccine: At-Ris k 5-64yrs (1 of 2 - PCV) 1980 DM Creatinine yearly 1984 DM Hemoglobin A1c 1984 DM Opthalmology Exam 1984 DM Urine Microalbumin yearly 1984 HIV screen 1992 Hepatitis C Screening 1992 Lipid Screening 1992 Hepatitis B vaccine (0-59 yrs) (1) 1993 Tdap adult 1993 HPV test 2004 PAP Smear 2004 Breast Cancer Share Decision Needed 2014 Breast Cancer screening 2014 Tetanus vaccine 04/11/2015 04/11/2005 Covid-19 Vaccine ( season) 2022 03/15/2021, 09/14/2020, 08/17/2020 Influenza (Flu) vaccine (1 o f 1 - Influenza standard series) 12/02/2023 02/16/2005 Care Teams Senior Computer Specialist Relationship Specialty Start Date End Date Gertrudis Li, [employer] [place] [address] [place] [address] PCP - General Family Medicine 05/24/23
--- OUTSIDE RECORDS SUMMARY | 2023-11-08 22:03 | XMS_ITS | Encounter Summary ---
Author Organization [facility] Address [address] [facility] [place] [address] Care Team Providers Care Area Captain Name Role Phone Travis Maya APRN Primary Care Provider Encounter Details Date Type Department Care Team (Late Contact Info) Description 05/05/2023 Interpretation Only [address] [phone] Jean Carlos Gallegos MD [address] [place] [address] Social History Tobacco Use Types Packs/Day Years Used Date Smoking Tobacco: Never Assessed Sex and Gender Information Value Date Recorded Sex Assigned at Not on file Gender Identity Not on file Sexual Orientation Not on file documented as of this encounter Plan of Treatment Upcoming Encounters Date Type Department Care Team (Late st Contact Info) Description 12/12/2023 11:00 AM EDT Office Visit Cardiology at [address] [phone] Austin Loredo MD [facility] [place] [place] [address] documented as of this encounter Procedures Procedure Name Priority Date/Time Associated Diagnosis Comments XR CHEST ONE VIEW STAT 05/05/2023 6:3 8 PM EST documented in this encounter Results * XR Chest One View (05/05/2023 6:38 PM EST) PT CLASS E DH RAD ADMITDTTM [id number] RAD PT RAD INFO [id number]^El ^Jean Carlos^Abdon RAD EXAM DESC XCXR1^XR Chest 1 View^RIS RAD Anatomical Region Laterality Modality Chest N/A Radiographic María ging 05/05/2023 6:38 PM EST Impressions 05/05/2023 6:42 PM EST Low lung volumes, no acute cardiopulmonary process. Thank you for letting us participate in the care of this patient. ??If you are a health care provider and have any questions regarding this report, please contact the number below. ??For patients who have questions please contact the health day care assistant that requested your imaging first. ? Electronically signed by: Erin Cerda MD, [facility] ([phone]), at 05/05/2023 6:42 PM Narrative 05/05/2023 6:42 PM EST EXAMINATION: XR Chest 1 View CLINICAL HISTORY: syncope TECHNIQUE: AP chest COMPARISON: None FINDINGS: Slightly low lung volumes, otherwise clear lungs without focal consolidation. No pleural effusion or pneumothorax. Cardiomediastinal silhouette and pulmonary vasculature are within normal limits. Left anterior chest wall monitor device or alternatively a leadless pacemaker, unclear on this study. Dense bilateral breast tissue, suggests bilateral breast augmentation. No acute osseous findings. Procedure Note Erin Cerda MD - 05/05/2023 EXAMINATION: XR Chest 1 View CLINICAL HISTORY: syncope TECHNIQUE: AP chest COMPARISON: None FINDINGS: Slightly low lung volumes, otherwise clear lungs without focalconsolidation. No pleural effusion or pneumothorax. Cardiomediastinal silhouette andpulmonary vasculature are within normal limits. Left anterior chest wall monitordevice or alternatively a leadless pacemaker, unclear on this study. Densebilateral breast tissue, suggests bilateral breast augmentation. No acute osseous findings. IMPRESSION Low lung volumes, no acute cardiopulmonary process. Thank you for letting us participate in the care of this patient. If youare a health care provider and have any questions regarding this report,please contact the number below. For patients who have questions please contactthe health day care assistant that requested your imaging first. Jean Carlos Gallegos MD IMG DX ORDERABL ES documented in this encounter Visit Diagnoses Not on filedocumented in this encounter Care Teams Area Captain Relationship Specialty Start Date End Date Tarvis Maya, [employer] [address] [place] [address] PCP - General 02/22/10 05/23/23 documented as of this encounter
--- OUTSIDE RECORDS SUMMARY | 2023-11-08 22:03 | XMS_ITS | Encounter Summary ---
Author Organization Replaced By [facility] Address [facility] [place] [address] Care Team Providers Care Station Baggage Agent Name Role Phone Gertrudis Li APRN Primary Care Provider [phone] Encounter Details Date Type Department Care Team (Late st Contact Info) Description 05/17/2005 [place] [phone] Chadwick Epps MD [place], [place] Social History Tobacco Use Types Packs/Day Years [...] 11:00 AM EDT Office Visit Cardiology at [address] [address] Austin Loredo MD [facility] [place] [address] documented as of this encounter Procedures Procedure Name Priority Date/Time Associated Diagnosis Comments SURGICAL PATHOLOGY REPORT Routine 05/17/2005 8:54 PM EST documented in this encounter Results * Surgical Pathology Report (05/17/2005 8:54 PM EST) Surgical Pathology Report [id number] ? Location: The signing pathologist has (i) examined the relevant preparation(s) for the specimen(s) and (ii) rendered or confirmed the diagnosis(es). . ?Pathology Surgical Pathology Final Report Clinical Information Specimen Submitted: A - 4 cm ellipse, excision. Clinical History: Multiple small nevi in clusters - disrupted by previous surgery; Clinical Dx: dysplastic nevus. Gross Description Labeled/Fixativ e: ? Labeled with the patient's name, formalin. Qty/Size/Weight : ?Single, 2.2 x 1.0 x 0.8 cm. Tissue Description: ?? Ellipse of whitfield-white skin with a central ?1.0 x 0.6 cm, irregular speckled area of brown-black ?pigmentation. Sections/Proces sing: ??The specimen is inked and serially sectioned. The ?ends are submitted in (1); the remainder of the ?specimen submitted in (2-4). ?? (T4) ??bds/EJR Microscopic Description Slides reviewed, microscopic description not recorded. Diagnosis Lentiginous junctional nevi with mild to moderate cytologic atypia, margins appear negative, excision, skin, site unspecified. Scar present, consistent with history of prior surgery. CR-0 05/23/05 AJE 05/24/05 Verified by: ? Marine Cortes MD ?Dermatopathol ogist ?(Electronic Signature) The attending pathologist whose signature appears on this report has reviewed all diagnostic slides and has edited the gross and/or microscopic portion of the report in rendering the final pathologic diagnosis. [facility] 05/17/2005 8:54 PM EST Chadwick Epps MD PATHOLOGY/CYTOLOGY [facility] documented in this encounter Visit Diagnoses Not on filedocumented in this encounter Care Teams Station Baggage Agent Relationship Specialty Start Date End Date Gertrudis Li, PABLO [address] [place] [address] PCP - General Family Medicine 05/24/23 documented as of this encounter
--- OUTSIDE RECORDS SUMMARY | 2023-11-08 22:03 | XMS_ITS | Encounter Summary ---
Author Organization [facility] Address [facility] [place] [address] Care Team Providers Care File Drawer Finisher Name Role Phone Travis Maya APRN Primary Care Provider Encounter Details Date Type Department Care Team (Late st Contact Info) Description 05/05/2023 Interpretation Only [address] [phone] Jean Carlos Gallegos MD [address] [place] [address] Social History Tobacco Use Types Packs/Day Years [...] 11:00 AM EDT Office Visit Cardiology at [address] [phone] Austin Loredo MD [facility] [place] [address] documented as of this encounter Procedures Procedure Name Priority Date/Time Associated Diagnosis Comments CT HEAD WO CONTRAST (GENERIC) STAT 05/05/2023 6:53 PM EST documented in this encounter Results * CT Head wo Contrast (Generic) (05/05/2023 6:53 PM EST) PT CLASS E RAD ADMITDTTM [id number] RAD PT RAD INFO [id number]^El ^Christopher^Abdon RAD EXAM DESC CTHEAD^CT Head w/o Contrast^RIS RAD Anatomical Region Laterality Modality Head Computed Tomogra phy 05/05/2023 6:53 PM EST Impressions 05/05/2023 7:01 PM EST No acute intracranial hemorrhage or other acute intracranial process. Thank you for letting us participate in the care of this patient. ??If you are a health care provider and have any questions regarding this report, please contact the number below. ??For patients who have questions please contact the health caregiver assisted living that requested your imaging first. ? Electronically signed by: Erin Cerda MD, [facility] ([phone]), at 05/05/2023 7:01 PM Narrative 05/05/2023 7:01 PM EST EXAMINATION: CT Head w/o Contrast CLINICAL HISTORY: Syncope TECHNIQUE: CT head performed without intravenous contrast administration. COMPARISON: None FINDINGS: No acute intracranial hemorrhage or extra-axial collection. Webb-white differentiation is preserved. No mass, mass effect or midline shift. Cerebral sulci, ventricles and basal cisterns are normal. No calvarial fracture or significant extracalvarial contusion or hematoma. Orbits and orbital structures are normal. The paranasal sinuses and mastoid air cells are clear. Procedure Note Erin Cerda MD - 05/05/2023 EXAMINATION: CT Head w/o Contrast CLINICAL HISTORY: Syncope TECHNIQUE: CT head performed without intravenous contrast administration. COMPARISON: None FINDINGS: No acute intracranial hemorrhage or extra-axial collection. Webb-white differentiation is preserved. No mass, mass effect or midline shift.Cerebral sulci, ventricles and basal cisterns are normal. No calvarial fracture or significant extracalvarial contusion orhematoma. Orbits and orbital structures are normal. The paranasal sinuses andmastoid air cells are clear. IMPRESSION No acute intracranial hemorrhage or other acute intracranial process. Thank you for letting us participate in the care of this patient. If youare a health care provider and have any questions regarding this report,please contact the number below. For patients who have questions please contactthe health caregiver assisted living that requested your imaging first. Electronically signed by: Erin Cerda MD, [facility]([phone]), at 05/05/2023 7:01 PM Jean Carlos Gallegos MD IMG CT ORDERABL ES documented in this encounter Visit Diagnoses Not on filedocumented in this encounter Care Teams File Drawer Finisher Relationship Specialty Start Date End Date Travis Maya, SPECIAL TAX AUDITOR [address] [place] [address] PCP - General 02/22/10 05/23/23 documented as of this encounter
--- OUTSIDE RECORDS SUMMARY | 2023-11-08 22:03 | XMS_ITS | Encounter Summary ---
Author Organization [facility] [place] [address] Care Team Providers Care Zinc Skimmer Name Role Phone Gertrudis Li APRN Primary Care Provider [phone] Reason for Referral * Surgical (Routine) - Authorized Specialty Diagnoses / Procedures Referred By Jo perry Referred To Contact Gastroenterology Diagnoses Heartburn ESOPHAGEAL REFLUX AND MOTILITY Eunice Erazo DO [address] [place] [address] [address] [place] [address] [facility] Endoscopy [address] [place] [address] Referral ID Status Reason Start Date Expiration Date Visits Requested Visits Authorized [id number] Authorized Test Only PCP Updated and/or Approved 10/15/2023 10/14/2024 1 1 Encounter Details Date Type Department Care Team (Late st Contact Info) Description 10/15/2023 Transcribe Orders eDH Incoming Referrals [phone] Eunice Erazo DO [address] [place] [address] [address] [place], [place] [id number] Heartburn Social History Tobacco Use Types Packs/Day Years [...] 11:00 AM EDT Office Visit Cardiology at [address] [place] [phone] Austin Loredo MD [facility] [place] [address] Scheduled Referrals Name Type Priority Associated Diagnoses Orde r Schedule REFERRAL TO ENDOSCOPY PROCEDURE Outpatient Referral Routine Heartburn Ordered: 10/15/2023 documented as of this encounter Visit Diagnoses Diagnosis Heartburn documented in this encounter Care Teams Zinc Skimmer Relationship Specialty Start Date End Date Gertrudis Li, TANK SETTER [facility] [place] [address] PCP - General Family Medicine 05/24/23 documented as of this encounter
--- OUTSIDE RECORDS SUMMARY | 2023-11-08 22:03 | XMS_ITS | Encounter Summary ---
Author Organization [facility] [place] [address] Care Team Providers Care Supplier Diversity Director Name Role Phone Gertrudis Li APRN Primary Care Provider [phone] Reason for Referral * Consultation (Routine) - Closed Specialty Diagnoses / Procedures Referred By Contact Referred To Contact Electrophysiology / Cardiology Diagnoses Personal history of other diseases of circulatory system Syncopal episode Sat, evaluated [facility]. h/o syncope & collapse over the yrs, loop recorder in place. ?POTS syndrome. Previously followed in [facility] Gertrudis Li APRN [address] [place] [address] [facility] [address] [place] [phone] Referral ID Status Reason Start Date Expiration Date V isits Requested Visits Authorized [id number] Closed Consult, Test & Treat PCP Updated and/or Approved 05/21/2023 05/20/2024 6 6 Encounter Details Date Type Department Care Team (Latest Contact Info) Description 05/24/2023 Transcribe Orders eD Incoming Referrals [phone] Gertrudis Li APRN [address] [place] [address] Personal history of other diseases of circulatory system Social History Tobacco Use Types Packs/Day Years [...] 11:00 AM EDT Office Visit Cardiology at [address] [place] [address] Austin Loredo MD [facility] [place] [address] Scheduled Referrals Name Type Priority Associated Diagnoses Order Schedule Referral to Cardiac Electrophysiology Outpatient Referral Routine Personal history of other diseases of circulatory system Ordered: 05/24/2023 documented as of this encounter Visit Diagnoses Diagnosis Personal history of other diseases of circulatory system documented in this encounter Care Teams Supplier Diversity Director Relationship Specialty Start Date End Date Gertrudis Li, PABLO [address] [place] [address] PCP - General Family Medicine 05/24/23 documented as of this encounter
--- OUTSIDE RECORDS SUMMARY | 2023-11-08 22:03 | XMS_ITS | Encounter Summary ---
Author Organization [facility] [place] [address] Care Team Providers Care Sensor Specialist Name Role Phone Gertrudis Li APRN Primary Care Provider [phone] Reason for Visit * Reason Onset Date Comments Referral 09/19/2023 Syncope and Collapse 09/19/2023 Encounter Details Date Type Department Care Team (Late st Contact Info) Description 09/19/2023 Telephone Cardiology at [address] [phone] Griselda Houser, staff scientist; Syncope and Collapse Social History Tobacco Use Types Packs/Day Years Used Date Smoking Tobacco: Never Assessed Sex and Gender Information Value Date Recorded Sex Assigned at Not on file Gender Identity Not on file Sexual Orientation Not on file documented as of this encounter Miscellaneous Notes * Telephone Encounter - Griselda Houser, RN - 09/19/2023 4:01 PM EDT Images from the original note were not included. Heart and Vascular Clinics [facility] [address] [place] [address] [place] [address] ----- Message from Susie Bales sent at 09/19/2023 2:42 PM EDT ----- Referral and Office Note scanned and indexed. Janessa is referred to this Cardiology clinic in [place]. She has an implanted loop recorder. Details of product not included with the referral. She previously with a support team member in [place], [place]. With phone call to Janessa, determined per her history that the device is a Medtronic product that was implanted by Dr. Crowe in [address] [facility]. Medical records need to be requested from [facility]: Most recent device transmission Procedure report ILR and product information for Medtronic device Most recent office visit note with Dr. Crowe H & P Most recent echocardiogram, EKG, and stress testing Plan: Schedule Janessa for an appointment with Dr. Loredo or Dr. Call at this [facility]. documented in this encounter Plan of Treatment Upcoming Encounters Date Type Department Care Team (Late st Contact Info) Description 12/12/2023 11:00 AM EDT Office Visit Cardiology at [address] [place] [address] Austin Loredo MD [facility] [place] [address] documented as of this encounter Visit Diagnoses Not on filedocumented in this encounter Care Teams Sensor Specialist Relationship Specialty Start Date End Date Gertrudis Li, [place] [address] PCP - General Family Medicine 05/24/23 documented as of this encounter
--- OUTSIDE RECORDS SUMMARY | 2023-11-08 22:03 | XMS_ITS | Encounter Summary ---
Author Organization [facility] Address [facility] [place] [address] Care Team Providers Care Head Char Filter Tank Tender Name Role Phone Gertrudis Li RADIO DISPATCHER Primary Care Provider [phone] Encounter Details Date Type Department Care Team (Late st Contact Info) Description 09/19/2023 Abstract Cardiology at [address] [phone] Griselda Houser, RN Pacemaker; Tobacco use; Former cigarette smoker Social History Tobacco Use Types Packs/Day Years [...] 11:00 AM EDT Office Visit Cardiology at [address] [phone] Austin Loredo MD [facility] [place] [address] documented as of this encounter Visit Diagnoses Diagnosis Pacemaker Cardiac pacemaker in situ Tobacco use Tobacco use disorder Former cigarette smoker Personal history of tobacco use, presenting hazards to health documented in this encounter Care Teams Head Char Filter Tank Tender Relationship Specialty Start Date End Date Gertrudis Li APR[place] [address] PCP - General Family Medicine 05/24/23 documented as of this encounter
== END 2023-11-08 22:02 | disposition home or self-care (01) ==
LOC: NCHCN 22:01
PROVIDERS: PCP Nurse Practitioner Family; Visit Provider Nurse Practitioner Family
DX: E87.6 Hypokalemia (principal); R79.89 Other specified abnormal findings of blood chemistry; R30.0 Dysuria; N76.0 Acute vaginitis; B37.31 Acute candidiasis of vulva and vagina
CPT/HCPCS: 80053; 81003; 87480; 87510; 87660

== ENCOUNTER 2023-11-19 12:24 | Emergency (ER) | payer MEDICARE, MEDICAID, SELFPAY ==
[2023-11-19] VITALS (23 sets, daily range): BP systolic 96–136; BP diastolic 49–114; PULSE 64–91; RESP 14–23; TEMP 35.9; O2SAT 94–100
--- OUTSIDE RECORDS SUMMARY | 2023-11-19 12:38 | XMS_ITS | Encounter Summary ---
Author Organization [facility] Address [facility] [place] [address] Care Team Providers Care Network Security Administrator Name Role Phone Travis Maya APRN Primary Care Provider Encounter Details Date Type Department Care Team (Late Contact Info) Description 05/05/2023 Interpretation Only [address] [phone] Jean Carlos Gallegos MD [address] [place] [address] Social History Tobacco Use Types Packs/Day Years [...] 11:00 AM EDT Office Visit Cardiology at [address] [phone] Austin Loredo MD [facility] [place] [address] documented as of this encounter Procedures Procedure Name Priority Date/Time Associated Diagnosis Comments XR CHEST ONE VIEW STAT 05/05/2023 6:3 8 PM EST documented in this encounter Results * XR Chest One View (05/05/2023 6:38 PM EST) PT CLASS E DH RAD ADMITDTTM [id number] RAD PT RAD INFO [id number]^El ^Jean Carlos^Abdon RAD EXAM DESC XCXR1^XR Chest [...] who have questions please contact the health career services assistant that requested your imaging first. ? Electronically signed by: Erin Cerda MD, [facility] ([phone]), at 05/05/2023 6:42 PM Narrative 05/05/2023 6:42 [...] patients who have questions please contactthe health career services assistant that requested your imaging first. Jean Carlos Gallegos MD IMG DX ORDERABL ES documented in this encounter Visit Diagnoses Not on filedocumented in this encounter Care Teams Network Security Administrator Relationship Specialty Start Date End Date Travis Maya, UNIFIED COMMUNICATIONS ENGINEER [address] [place] [address] PCP - General 02/22/10 05/23/23 documented as of this encounter
--- OUTSIDE RECORDS SUMMARY | 2023-11-19 12:38 | XMS_ITS | Encounter Summary ---
Author Organization [facility] Address [facility] [place] [address] Care Team Providers Care Offset Plate Maker Name Role Phone Gertrudis Li INSTRUCTOR TRAINER CANINE SERVICE Primary Care Provider [phone] Encounter Details Date Type Department Care Team (Late st Contact Info) Description 09/19/2023 Abstract Cardiology at [address] [phone] Griselda Houser, RN Pacemaker; Tobacco [...] 11:00 AM EDT Office Visit Cardiology at [address] [phone] Austin Loredo MD [facility] [place] [address] documented as of this encounter Visit Diagnoses Diagnosis Pacemaker Cardiac pacemaker in situ Tobacco use Tobacco use disorder Former cigarette smoker Personal history of tobacco use, presenting hazards to health documented in this encounter Care Teams Offset Plate Maker Relationship Specialty Start Date End Date Gertrudis Li [place] [place] [address] PCP - General Family Medicine 05/24/23 documented as of this encounter
--- OUTSIDE RECORDS SUMMARY | 2023-11-19 12:38 | XMS_ITS | Encounter Summary ---
Author Organization [facility] [place] [address] Care Team Providers Care Scale Tester Name Role Phone Gertrudis Li APRN Primary Care Provider [phone] Reason for Referral * Surgical (Routine) - Authorized Specialty Diagnoses / Procedures Referred By Jo perry Referred To Contact Gastroenterology Diagnoses Heartburn ESOPHAGEAL REFLUX AND MOTILITY Eunice Erazo DO [address] [place] [address] [address] [place] [address] [facility] Endoscopy [address] [place] [address] Referral ID Status Reason Start Date Expiration Date Visits Requested Visits Authorized [id number] Authorized Test Only PCP Updated and/or Approved 10/15/2023 10/14/2024 1 1 Encounter Details Date Type Department Care Team (Late st Contact Info) Description 10/15/2023 Transcribe Orders eDH Incoming Referrals [phone] Eunice Erazo DO [address] [place] [address] [address] [place], [place] [id number] Heartburn Social History Tobacco Use Types Packs/Day [...] 11:00 AM EDT Office Visit Cardiology at [address] [place] [phone] Austin Loredo MD [facility] [place] [address] Scheduled Referrals Name Type Priority Associated Diagnoses Orde r Schedule REFERRAL TO ENDOSCOPY PROCEDURE Outpatient Referral Routine Heartburn Ordered: 10/15/2023 documented as of this encounter Visit Diagnoses Diagnosis Heartburn documented in this encounter Care Teams Scale Tester Relationship Specialty Start Date End Date Gertrudis Li, ACADEMIC COUNSELOR [facility] [place] [address] PCP - General Family Medicine 05/24/23 documented as of this encounter
--- OUTSIDE RECORDS SUMMARY | 2023-11-19 12:38 | XMS_ITS | Clinical Summary ---
Author Organization [facility] [place] [address] Care Team Providers Care Hand Riveter Name Role Phone Gertrudis Li Isidoro SHAH Primary Care Provider [phone] Allergies Active Allergy Reactions Criticality Noted Date [...] recorder - previously followed by cardiology in [place], [place] Orthostatic hypotension 09/19/2023 Nail dystrophy 09/19/2023 [...] Description 10/15/2023 Transcribe Orders eDH Incoming Referrals [phone] Eunice Erazo, DO Heartburn 09/19/2023 Abstract Cardiology at [address] [phone] Griselda Houser, RN Pacemaker; Tobacco use; Former cigarette smoker 09/19/2023 Telephone Cardiology at [address] [phone] Griselda Houser, lunch truck driver; Syncope and Collapse from Last 3 Months [...] 11:00 AM EDT Office Visit Cardiology at [address] [phone] Austin Loredo MD [facility] [place] [address] Health Maintenance Due Date Last Done Comments [...] Influenza standard series) 12/02/2023 02/16/2005 Care Teams Hand Riveter Relationship Specialty Start Date End Date Gertrudis Li, LITHOGRAPHIC ARTIST [place] [place] [address] PCP - General Family Medicine 05/24/23
--- OUTSIDE RECORDS SUMMARY | 2023-11-19 12:38 | XMS_ITS | Encounter Summary ---
Author Organization [facility] [place] [address] Care Team Providers Care Human Resources Operations Specialist Name Role Phone Gertrudis Li APRN Primary Care Provider [phone] Reason for Visit * Reason Onset Date Comments Referral 09/19/2023 Syncope and Collapse 09/19/2023 Encounter Details Date Type Department Care Team (Late st Contact Info) Description 09/19/2023 Telephone Cardiology at [address] [phone] Griselda Houser, surg physician asst; Syncope and Collapse Social History Tobacco Use [...] were not included. Heart and Vascular Clinics [facility] [address] [place] [address] [place] [address] ----- Message from Susie Bales sent at 09/19/2023 2:42 PM EDT ----- Referral and Office Note scanned and indexed. Janessa is referred to this Cardiology clinic in [place]. She has an implanted loop recorder. Details of product not included with the referral. She previously with a brushing machine operator in [place], [place]. With phone call to Janessa, determined per her history that the device is a Medtronic product that was implanted by Dr. Crowe in [address] [facility]. Medical records need to be requested from [facility]: Most recent device transmission Procedure report ILR and product information for Medtronic device Most recent office visit note with Dr. Crowe H & P Most recent echocardiogram, EKG, and stress testing Plan: Schedule Janessa for an appointment with Dr. Loredo or Dr. Call at this [facility]. documented in this encounter Plan of Treatment Upcoming Encounters Date Type Department Care Team (Late st Contact Info) Description 12/12/2023 11:00 AM EDT Office Visit Cardiology at [address] [place] [address] Austin Loredo MD [facility] [place] [address] documented as of this encounter Visit Diagnoses Not on filedocumented in this encounter Care Teams Human Resources Operations Specialist Relationship Specialty Start Date End Date Gertrudis Li, [place] [place] [address] PCP - General Family Medicine 05/24/23 documented as of this encounter
--- OUTSIDE RECORDS SUMMARY | 2023-11-19 12:38 | XMS_ITS | Encounter Summary ---
Author Organization [facility] [place] [address] Care Team Providers Care Nascar Pit Crew Person Name Role Phone Gertrudis Li APRN Primary Care Provider [phone] Reason for Referral * Consultation (Routine) - Closed Specialty Diagnoses / Procedures Referred By Contact Referred To Contact Electrophysiology / Cardiology Diagnoses Personal history of other diseases of circulatory system Syncopal episode Sat, evaluated [facility]. h/o syncope & collapse over the yrs, loop recorder in place. ?POTS syndrome. Previously followed in [facility] Gertrudis Li APRN [address] [place] [address] [facility] [address] [place] [phone] Referral ID Status Reason Start Date Expiration Date V isits Requested Visits Authorized [id number] Closed Consult, Test & Treat PCP Updated and/or Approved 05/21/2023 05/20/2024 6 6 Encounter Details Date Type Department Care Team (Latest Contact Info) Description 05/24/2023 Transcribe Orders eD Incoming Referrals [phone] Gertrudis Li APRN [address] [place] [address] Personal history of other diseases [...] 11:00 AM EDT Office Visit Cardiology at [address] [place] [address] Austin Loredo MD [facility] [address] Scheduled Referrals Name Type Priority Associated Diagnoses Order Schedule Referral to Cardiac Electrophysiology Outpatient Referral Routine Personal history of other diseases of circulatory system Ordered: 05/24/2023 documented as of this encounter Visit Diagnoses Diagnosis Personal history of other diseases of circulatory system documented in this encounter Care Teams Nascar Pit Crew Person Relationship Specialty Start Date End Date Gertrudis Li, PABLO [address] [address] PCP - General Family Medicine 05/24/23 documented as of this encounter
--- OUTSIDE RECORDS SUMMARY | 2023-11-19 12:38 | XMS_ITS | Encounter Summary ---
Author Organization [facility] Address [facility] [place] [address] Care Team Providers Care Program Assistant Name Role Phone Travis Maya APRN Primary Care Provider Encounter Details Date Type Department Care Team (Late st Contact Info) Description 05/05/2023 Interpretation Only [address] [phone] Jean Carlos Gallegos MD [address] [place] [address] Social History Tobacco Use Types Packs/Day Years [...] 11:00 AM EDT Office Visit Cardiology at [address] [phone] Austin Loredo MD [facility] [place] [address] documented as of this encounter Procedures Procedure Name Priority Date/Time Associated Diagnosis Comments CT HEAD WO CONTRAST (GENERIC) STAT 05/05/2023 6:53 PM EST documented in this encounter Results * CT Head wo Contrast (Generic) (05/05/2023 6:53 PM EST) PT CLASS E RAD ADMITDTTM [id number] RAD PT RAD INFO [id number]^El ^Christopher^Abdon RAD EXAM DESC CTHEAD^CT Head w/o [...] have questions please contact the health career placement specialist that requested your imaging first. ? Electronically signed by: Erin Cerda MD, [facility] ([phone]), at 05/05/2023 7:01 PM Narrative 05/05/2023 7:01 [...] who have questions please contactthe health career placement specialist that requested your imaging first. Electronically signed by: Erin Cerda MD, [facility]([phone]), at 05/05/2023 7:01 PM Jean Carlos Gallegos MD IMG CT ORDERABL ES documented in this encounter Visit Diagnoses Not on filedocumented in this encounter Care Teams Program Assistant Relationship Specialty Start Date End Date Travis Maya, COSMETOLOGY TEACHER [address] [place] [address] PCP - General 02/22/10 05/23/23 documented as of this encounter
--- OUTSIDE RECORDS SUMMARY | 2023-11-19 12:38 | XMS_ITS | Encounter Summary ---
Author Organization [facility] Address [facility] [place] [address] Care Team Providers Care Assembler Golf Wood Head Name Role Phone Gertrudis Li APRN Primary Care Provider [phone] Encounter Details Date Type Department Care Team (Late st Contact Info) Description 05/17/2005 [place] [phone] Chadwick Epps MD [place], [place] Social History Tobacco Use Types Packs/Day [...] 11:00 AM EDT Office Visit Cardiology at [address] [phone] Austin Loredo MD [facility] [place] [address] documented as of this encounter Procedures Procedure Name Priority Date/Time Associated Diagnosis Comments SURGICAL PATHOLOGY REPORT Routine 05/17/2005 8:54 PM EST documented in this encounter Results * Surgical Pathology Report (05/17/2005 8:54 PM EST) Surgical Pathology Report [id number] ? Location: The signing pathologist has (i) [...] report in rendering the final pathologic diagnosis. [facility] 05/17/2005 8:54 PM EST Chadwick Epps MD [facility]OLOGY[facility] documented in this encounter Visit Diagnoses Not on filedocumented in this encounter Care Teams Assembler Golf Wood Head Relationship Specialty Start Date End Date Gertrudis Li, PABLO [address] [place] [address] PCP - General Family Medicine 05/24/23 documented as of this encounter
--- NOTE | 2023-11-19 13:00 | RT.EKG_ITS ---
APPROVED REPORT Exam: Resting ECG Reason for Exam: shortness of breath Patient Location: E HR:65 bpm ECG Measurements Heart Rate 65 AXIS ND 158 P 44 QRSd 88 QRS 6 QT 405 T 16 QTc 421 Conclusion Sinus rhythm...normal P axis, V-rate 60- 99 Anteroseptal infarct, old...Q >40mS, V1-V2 sinus, normal axis, normal intervals, no acute ischemic changes
--- NOTE | 2023-11-19 13:54 | W.ED.GENAD ---
Discharge Plan Disposition Patient Disposition: Home Condition: Improving Discharge Details Clinical Impression: Near syncope Primary Care Provider: BELTRAN JHAVERI ED Provider: Rusty Mark Home Meds and New Rx's Prescriptions: No Action Januvia 50 mg tablet 50 mg PO DAILY sucralfate [Carafate] 1 gram tablet 1 g PO QID Qty: 120 12RF docusate sodium 100 mg capsule 100 mg PO TID fluticasone propion-salmeterol [Advair HFA] 230-21 mcg/actuation HFA aerosol inhaler 2 puff inhalation BID albuterol sulfate 90 mcg/actuation HFA aerosol inhaler 2 puff inhalation Q6H PRN cetirizine 10 mg tablet 10 mg PO DAILY PRN clonazepam 0.5 mg tablet 0.5 mg PO DAILY PRN epinephrine 0.3 mg/0.3 mL auto-injector 0.3 mg IM ONCE Rx Instructions: as a single dose; may repeat once potassium chloride [Klor-Con] 20 mEq packet 20 meq PO DAILY Linzess 72 mcg capsule 72 mcg PO DAILY quetiapine 300 mg tablet 300 mg PO QHS Spiriva Respimat 1.25 mcg/actuation mist 2 puff inhalation DAILY acetaminophen [Tylenol Extra Strength] 500 mg tablet 500 mg PO Q6H PRN dexlansoprazole [Dexilant] 30 mg capsule,biphase delayed releas 30 mg PO DAILY Qty: 30 6RF Invokana 100 mg tablet 100 mg PO DAILY lithium carbonate 300 mg tablet extended release 300 mg PO HS Patient Comments: TAKE 1 TABLET BY MOUTH IN THE EVENING cholecalciferol (vitamin D3) 50 mcg (2,000 unit) capsule 50 mcg PO DAILY Patient Comments: TAKE TWO CAPSULES BY MOUTH EVERY DAY bupropion HCl 300 mg tablet extended release 24 hr 150 mg PO DAILY escitalopram oxalate 20 mg tablet 20 mg PO DAILY AM Patient Comments: TAKE 1 TABLET BY MOUTH ONCE DAILY midodrine 2.5 mg tablet 2 tab PO TID Patient Comments: TAKE 2 TABLETS BY MOUTH THREE TIMES DAILY Discharge Instructions Instructions: Near Fainting, Fainting, Adult ED Additional Instructions: Please stay hydrated and cool. Get some rest. Return to the emergency department for any worsening symptoms HPI General Date/Time Provider Initiated Documentation: 11/19/23 13:34. 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 [place] lightheaded and almost passed out. Feeling better now that she is resting. No chest pain or shortness of breath. Related Data Home Medications ?Medication ?Instructions ?Recorded ?Confirmed cholecalciferol (vitamin D3) 50 50 mcg PO DAILY 02/14/21 11/19/23 mcg (2,000 unit) capsule escitalopram oxalate 20 mg tablet 20 mg PO DAILY AM 11/12/21 11/19/23 midodrine 2.5 mg tablet 2 tab PO TID 11/12/21 11/19/23 lithium carbonate 300 mg 300 mg PO HS 03/19/22 11/19/23 tablet,extended release bupropion HCl 300 mg 24 hr tablet, 150 mg PO DAILY 09/13/22 11/19/23 extended release sitagliptin phosphate 50 mg tablet 50 mg PO DAILY 01/09/23 11/19/23 (Januvia) albuterol sulfate 90 mcg/actuation 2 puff inhalation Q6H PRN 05/01/23 11/19/23 aerosol inhaler cetirizine 10 mg tablet 10 mg PO DAILY PRN 05/01/23 11/19/23 clonazepam 0.5 mg tablet 0.5 mg PO DAILY PRN 05/01/23 11/19/23 epinephrine 0.3 mg/0.3 mL 0.3 mg IM ONCE 05/01/23 11/19/23 injection, auto-injector fluticasone propionate 230 2 puff inhalation BID 05/01/23 11/19/23 mcg-salmeterol 21 mcg/actuation HFA inhaler (Advair HFA) linaclotide 72 mcg capsule 72 mcg PO DAILY 05/01/23 11/19/23 (Linzess) potassium chloride 20 mEq oral 20 meq PO DAILY 05/01/23 11/19/23 packet (Klor-Con) quetiapine 300 mg tablet 300 mg PO QHS 05/01/23 11/19/23 tiotropium bromide 1.25 2 puff inhalation DAILY 05/01/23 11/19/23 mcg/actuation mist for inhalation (Spiriva Respimat) canagliflozin 100 mg tablet 100 mg PO DAILY 05/25/23 11/19/23 (Invokana) docusate sodium 100 mg capsule 100 mg PO TID 08/13/23 11/19/23 sucralfate 1 gram tablet (Carafate) 1 g PO QID #120 tabs 08/13/23 11/19/23 acetaminophen 500 mg tablet 500 mg PO Q6H PRN 09/06/23 11/19/23 (Tylenol Extra Strength) dexlansoprazole 30 mg 30 mg PO DAILY #30 caps 09/06/23 11/19/23 capsule,biphase delayed release (Dexilant) Previous Rx's ?Medication ?Instructions ?Recorded sucralfate 1 gram tablet (Carafate) 1 g PO QID #120 tabs 08/13/23 dexlansoprazole 30 mg 30 mg PO DAILY #30 caps 09/06/23 capsule,biphase delayed release (Dexilant) Allergies Allergy/AdvReac Type Severity Reaction Status Date / Time venom-honey bee Allergy Severe Other (See Verified 11/19/23 13:22 Comment) Sulfa (Sulfonamide Allergy HIVES Verified 11/19/23 13:22 Antibiotics) General Stated Complaint: Dizzy/Sync MIKE: 3 Exam Narrative Exam Narrative: Alert oriented interactive Moist mucous membranes tongue secretions Speaking full sentences no respiratory distress Moving all extremities without deficit alert oriented no ataxia no speech deficit Course Vital Signs Vital signs: Vital Signs Temperature 35.9 C L 11/19/23 13:17 Pulse 71 11/19/23 13:17 Respiratory Rate 16 11/19/23 13:17 Blood Pressure 130/114 H 11/19/23 13:17 Pulse Oximetry 100 11/19/23 13:17 Temperature 35.9 C L 11/19/23 13:17 Temperature Source Temporal Artery Scan 11/19/23 13:17 Pulse 71 11/19/23 13:17 Respiratory Rate 16 11/19/23 13:17 Respiratory Effort Normal 11/19/23 13:19 Blood Pressure 130/114 H 11/19/23 13:17 Pulse Oximetry 100 11/19/23 13:17 Pain Level 0 11/19/23 13:17 Medical Decision Making 48-year-old female presents after 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 No chest pain or shortness of breath EKG normal sinus rhythm without acute ischemic changes. Likely vasovagal episode versus orthostatic episode versus heat exposure versus dehydration versus electrolyte derangement. Low suspicion for CVA ACS PE or aortic pathology low suspicion for infectious process. Will obtain screening labs will provide fluid hydration rest close reassessment 15 51 Resting comfortably no acute distress asymptomatic hemodynamically stable. Quality:SDOH Health Related Social Needs: No Data to Display PFSH All Active Problems (Updated 11/19/23 @ 15:52 by Rusty Mark MD) Near syncope (Acute) Rectal bleeding (Acute) Suprapubic pain (Acute) Hiatal hernia with GERD (Acute) Chronic erosive gastritis (Acute) Bipolar 2 disorder (Chronic) Type 2 diabetes mellitus with peripheral neuropathy (Acute) Chest pain, unspecified (Acute) Anxiety (Chronic) Psychologic conversion disorder (Acute) Urinary incontinence (Acute) Seasonal affective disorder (Acute) Tinea pedis (Acute) Onychomycosis (Acute) PVD (peripheral vascular disease) (Chronic) Nail dystrophy (Acute) Type 2 diabetes mellitus (Chronic) Shortness of breath (Acute) Muscle pain (Acute) Atypical chest pain (Acute) GERD (gastroesophageal reflux disease) (Chronic) Nausea and vomiting in adult (Acute) Abnormal CT of the abdomen (Acute) N&V (nausea and vomiting) (Acute) Hypokalemia (Acute) Right lower quadrant abdominal pain (Acute) Gastroesophageal reflux disease (Chronic) Asthma (Chronic) Depression (Chronic) Takes Fluoxetine 20mg QD with good impact on her depression, denies any SI. Encouraged to continue. to try to tame a hoiurde. Medical History RLQ abdominal tenderness Pre-syncope Orthostatic hypotension Nonspecific paroxysmal spell Dizziness Vertigo Gallstones without obstruction of gallbladder Calculus of gallbladder with chronic cholecystitis without obstruction Pacemaker Gestational diabetes mellitus High ankle sprain of right lower extremity Acne (04/21/13) Back pain Taking prednisone 60mg QD for 4 days. Currently on day 2. Not feeling it is making much of a difference but she was encouraged to take for the full 4 days. Also suggested she take the muscle relaxer only PRN as it makes her quite drowsy. Encouraged to take at night. To help with rest. Other valenzuela, suggested she increse Aleve to AM & PM dose, then supplement with 1000mg Acetaminophen every 4-6 hours up to a total of 4000mg/day. Suggested ice might help more than heat but either should be limited to only 20 minutes at a time. Use topicals (Solopas Gel or Aspercreame with Lidocaine seem to be quite helpful. Try to avoid sitting or standing still for prolonged periods of time. Walking on flat ground is encourage. Surgical History History of cholecystectomy (~03/2019) History of esophagogastroduodenoscopy (EGD) (~07/2022) History of hysterectomy History of bilateral ligation of fallopian tubes History of discectomy Status post dilation and curettage S/P endometrial ablation irregular bleeding has restarted, neg EM bx 01/2016 discectomy (~2003) Ligation of fallopian tube Endometrial Ablation (~2009) Dilation and curettage X 2 with losses ANAL SURGERY surgical drainage of anal fissure Family History Mother Hyperlipidemia Thyroid disorder Father Essential hypertension Diabetes Personal history of malignant neoplasm prostate Heart disease Hyperlipidemia Myocardial infarction Social History Smoking/Tobacco Use Status: Former Tobacco Use Quit Date: 04/02/22 Tobacco: How many years used: 20 Smoking risk assessment performed?: Yes Alcohol Intake: never Drug use: Never Substance use type: does not use Household members: family and other Details: Lives with demented mother and her brother Housing: house current occupation: [employer]; [employer]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
[2023-11-19] MEDS: Normal Saline 1,000 ML 1000 ML IV (14:12)
[2023-11-19 14:15] LABS: Abs Immature Grans 0.04 10^3/uL (0.0-0.06); Absolute Basophil Count 0.03 10^3/uL (0.0-0.2); Absolute Eosinophil Count 0.16 10^3/uL (0.0-0.7); Absolute Lymphocyte Count 2.17 10^3/uL (1.2-3.4); Absolute Neutrophil Count 5.33 10^3/uL (1.2-6.7); Basophils % 0.4 %; Eosinophils % 1.9 %; HCT 39.5 % (36.0-46.0); HGB 12.3 g/dL (11.2-15.7); Immature Grans % 0.5 %; Lymphocytes % 26.1 %; MCH 25.2 pg (27.0-33.0); MCHC 31.1 % (32.0-36.0); MCV 81 fL (80-95); MPV 10.6 fL (8.0-11.0); Monocytes % 7.2 %; Neutrophils % 63.9 %; Platelet Count 274 10^3/uL (130-400); RBC 4.89 10^6/uL (3.93-5.22); RDW 16.1 % (11.7-14.6); RDW-SD 47.4 fL; WBC 8.33 10^3/uL (4.4-10.8)
[2023-11-19 14:46] LABS: ALT 26 U/L (14-59); AST 20 U/L (15-37); Albumin 3.7 g/dL (3.4-5.0); Alkaline Phosphatase 109 U/L (46-116); Anion Gap 7.4 mmol/L (3-11); BUN 7 mg/dL (7-18); Bilirubin, Total 0.45 mg/dL (0.2-1.0); CO2 29.6 mmol/L (21.0-32.0); CREATININE 1.2 mg/dL (0.55-1.02); Calcium 9.2 mg/dL (8.5-10.1); Chloride 104 mmol/L (98-107); Estimated GFR 55.49 (mL/min/1.73m2); Glucose 83 mg/dL (74-106); Magnesium 2.1 mg/dL (1.8-2.4); Sodium 141 mmol/L (136-145); TSH (W/Ref FT4) 3.58 uIU/mL (0.36-3.74); Total Protein 7.4 g/dL (6.4-8.2); Troponin I < 50 ng/L (< or =60)
== END 2023-11-19 16:20 | disposition home or self-care (01) ==
PROVIDERS: Emergency Provider Emergency Medicine; PCP Nurse Practitioner Family
DX: R55 Syncope and collapse (principal)
CPT/HCPCS: 36415; 36416; 80053; 82962; 93005; 96360; 99284; 83735; 84443; 84484; 85025; 93010; 99283

== ENCOUNTER 2023-12-12 23:16 | Emergency (ER) | payer MEDICARE, MEDICAID, SELFPAY ==
[2023-12-12 23:19] VITALS: BP 131/84; PULSE 83; RESP 18; TEMP 36.7; O2SAT 98
[2023-12-12 23:34] LABS: Bilirubin Negative (Negative); Blood Negative (Negative); Clarity Clear (Clear); Glucose >=1000 mg/dL (Negative); Ketones Negative (Negative); Leukocyte Esterase Negative (Negative); Nitrite Negative (Negative); Specific Gravity 1.015 (1.005-1.025); Urobilinogen 0.2 mg/dL (Up to 0.2); pH 6.5 (5-8)
[2023-12-12 23:39] LABS: Bacteria Negative HPF (Negative); C & S Indicated? No; Casts Negative LPF (Negative); Crystals Negative HPF (Negative); Epithelial Cells Rare HPF (Negative); Mucus Negative (Negative); RBC Negative HPF (0-2); WBC 0-2 HPF (0-5)
--- NOTE | 2023-12-12 23:45 | DI.CT_ITS ---
Exam(s) CT ABDOMEN PELVIS W EXAM: CT ABDOMEN PELVIS W CLINICAL HISTORY: bloody diarhea. TECHNIQUE: Imaging Protocol: Axial computed tomography images with coronal and sagittal reformatted images were created and reviewed CONTRAST MATERIAL: Intravenous: Omnipaque 350 Contrast volume:100 ml Oral: / no COMPARISON: CT CT ABDOMEN PELVIS CTA from 07/28/2023 FINDINGS: ABDOMEN and PELVIS: Lung Bases: No acute findings. Liver: Normal density. No suspicious mass. Gallbladder and biliary tract: Status post cholecystectomy. No biliary dilation. Pancreas: Normal density. No abnormal calcifications or inflammatory process. No evidence of mass. Spleen: Normal. Kidneys: Normal size, contour and axis. No radiodense stones. No obstructive uropathy. No suspicious masses seen. Adrenal glands: No masses seen. Vasculature: Abdominal aorta non-dilated. Soft tissues: Unremarkable. Bladder: No gross wall thickening. No calculi.No focal mass. Bowel: No obstruction. No bowel wall thickening. No fluid within the colon. Normal quantity of fe he material. Appendix normal. Peritoneal cavity: No ascites. No focal collection. No mesenteric inflammatory response. Bones: Unremarkable for age. Reproductive organs: Status post hysterectomy. Stable left pelvic cyst, anterior to the the left ova ry. Lymph nodes: No pathologically enlarged lymph nodes. IMPRESSION:: No acute abnormality in the abdomen or pelvis. RADIATION DOSE DELIVERED: 561.9mGy.cm Total DLP DATA REPOSITORY: All CT scans at this facility are submitted to the National Radiology Data Registry (NRDR) Dose Index Registry (DIR) with the [employer] (ACR). RADIATION OPTIMIZATION: All CT scans at this facility use at least one of these dose optimization te chniques: automated exposure control; mA and/or kV adjustment per patient size (includes targeted exa ms where dose is matched to clinical indication); or iterative reconstruction.
[2023-12-13] VITALS (21 sets, daily range): BP systolic 120–173; BP diastolic 52–82; PULSE 66–83; RESP 14–24; TEMP 37; O2SAT 95–100
[2023-12-13] LABS: Abs Immature Grans 0.04 10^3/uL (0.0-0.06); Absolute Basophil Count 0.05 10^3/uL (0.0-0.2); Absolute Monocyte Count 0.63 10^3/uL (0.1-0.8); Absolute Neutrophil Count 7.73 10^3/uL (1.2-6.7); Basophils % 0.4 %; Eosinophils % 2.5 %; Immature Grans % 0.3 %; Lymphocytes % 26.8 %; MCH 24.8 pg (27.0-33.0); MCHC 31.1 % (32.0-36.0); MCV 80 fL (80-95); MPV 10.7 fL (8.0-11.0); Monocytes % 5.3 %; Neutrophils % 64.7 %; Platelet Count 360 10^3/uL (130-400); RBC 5.64 10^6/uL (3.93-5.22); RDW 15.8 % (11.7-14.6); RDW-SD 45.1 fL; WBC 11.94 10^3/uL (4.4-10.8)
[2023-12-13] MEDS: Sucralfate 1 GM TAB PO (00:07)
[2023-12-13 00:16] LABS: ALT 20 U/L (14-59); AST 17 U/L (15-37); Albumin 3.9 g/dL (3.4-5.0); Alkaline Phosphatase 142 U/L (46-116); Anion Gap 10.5 mmol/L (3-11); BUN 7 mg/dL (7-18); Bilirubin, Total 0.25 mg/dL (0.2-1.0); CO2 27.5 mmol/L (21.0-32.0); CREATININE 1.1 mg/dL (0.55-1.02); Calcium 9.9 mg/dL (8.5-10.1); Chloride 102 mmol/L (98-107); Glucose 156 mg/dL (74-106); Lipase 135 U/L (16-77); Magnesium 2.1 mg/dL (1.8-2.4); Potassium 3.1 mmol/L (3.5-5.1); Sodium 140 mmol/L (136-145); Total Protein 8.2 g/dL (6.4-8.2)
[2023-12-13] MEDS: Omnipaque 350 MG/ML 100 ML BTL IJ (00:26)
[2023-12-13] MEDS: Normal Saline - Diluent 50 ML VIAL IJ (00:26)
[2023-12-13] MEDS: Potassium Chloride Liquid 20 MEQ PKT 40 MEQ PO (00:31)
--- NOTE | 2023-12-13 01:00 | RT.EKG_ITS ---
APPROVED REPORT Exam: Resting ECG Reason for Exam: Chest Pain Patient Location: E HR:69 bpm ECG Measurements Heart Rate 69 AXIS MI 155 P 66 QRSd 83 QRS 20 QT 394 T 32 QTc 423 Conclusion Sinus rhythm...normal P axis, V-rate 60- 99 Low voltage, precordial leads...precordial leads <1.0mV appropriate intervals no ST segment or T wave abnormalities to suggest occlusive FL
--- NOTE | 2023-12-13 01:40 | DI.VRAD_ITS ---
PROCEDURE INFORMATION: Exam: CT Abdomen And Pelvis With Contrast Exam date and time: 12/13/2023 12:11 AM Age: 48 years old Clinical indication: Other: Bloody diarrhea and urine TECHNIQUE: Imaging protocol: Computed tomography of the abdomen and pelvis with contrast. Contrast material: 350; Contrast volume: 100 ml; Contrast route: INTRAVENOUS (IV); COMPARISON: CT ABDOMEN PELVIS CTA 07/28/2023 6:48 PM FINDINGS: Lungs: Faint ground-glass opacities in the visualized lungs, likely underinflation. Liver: No focal hepatic lesion identified. Gallbladder and biliary ducts: Cholecystectomy. Pancreas: No CT evidence for acute pancreatitis. Spleen: No splenomegaly. Adrenal glands: Adrenal thickening. Kidneys and ureters: Right renal cyst. No hydronephrosis or CT evidence for pyelonephritis. Stomach and bowel: Mild thickening of the sigmoid colon commensurate with underdistention. No intestinal obstruction is evident. Appendix: No evidence of appendicitis. Intraperitoneal space: No free air. Vasculature: No abdominal aortic aneurysm. Lymph nodes: Nonspecific mesenteric and retroperitoneal lymph nodes. Urinary bladder: No acute findings. Reproductive: Uterus absent. 2.4 cm left ovarian cyst. There is a 2.5 cm cystic mass anterior to the left ovary, unchanged, likely paraovarian or other cyst. Bones/joints: No pertinent acute abnormality seen. Soft tissues: No pertinent acute abnormality seen. IMPRESSION: 1. No acute findings to explain reported symptoms. 2. Nonacute findings as outlined above. Dictated and Authenticated by: Michelle Mckeon MD. Ordering:REJI Werner MD
--- NOTE | 2023-12-13 01:41 | ED.GENADUL_ITS ---
Discharge Plan Disposition Patient Disposition: Home Condition: Good Discharge Details Clinical Impression: GI bleed, History of peptic ulcer disease, Acute epigastric pain Primary Care Provider: BELTRAN JHAVERI ED Provider: Debbi Reno Home Meds and New Rx's Prescriptions: No Action Januvia 50 mg tablet 50 mg PO DAILY sucralfate [Carafate] 1 gram tablet 1 g PO QID Qty: 120 12RF docusate sodium 100 mg capsule 100 mg PO TID fluticasone propion-salmeterol [Advair HFA] 230-21 mcg/actuation HFA aerosol inhaler 2 puff inhalation BID albuterol sulfate 90 mcg/actuation HFA aerosol inhaler 2 puff inhalation Q6H PRN cetirizine 10 mg tablet 10 mg PO DAILY PRN clonazepam 0.5 mg tablet 0.5 mg PO DAILY PRN epinephrine 0.3 mg/0.3 mL auto-injector 0.3 mg IM ONCE Rx Instructions: as a single dose; may repeat once potassium chloride [Klor-Con] 20 mEq packet 20 meq PO DAILY Linzess 72 mcg capsule 72 mcg PO DAILY quetiapine 300 mg tablet 300 mg PO QHS Spiriva Respimat 1.25 mcg/actuation mist 2 puff inhalation DAILY acetaminophen [Tylenol Extra Strength] 500 mg tablet 500 mg PO Q6H PRN dexlansoprazole [Dexilant] 30 mg capsule,biphase delayed releas 30 mg PO DAILY Qty: 30 6RF Invokana 100 mg tablet 100 mg PO DAILY lithium carbonate 300 mg tablet extended release 300 mg PO HS Patient Comments: TAKE 1 TABLET BY MOUTH IN THE EVENING cholecalciferol (vitamin D3) 50 mcg (2,000 unit) capsule 50 mcg PO DAILY Patient Comments: TAKE TWO CAPSULES BY MOUTH EVERY DAY bupropion HCl 300 mg tablet extended release 24 hr 150 mg PO DAILY escitalopram oxalate 20 mg tablet 20 mg PO DAILY AM Patient Comments: TAKE 1 TABLET BY MOUTH ONCE DAILY midodrine 2.5 mg tablet 2 tab PO TID Patient Comments: TAKE 2 TABLETS BY MOUTH THREE TIMES DAILY Discharge Instructions Instructions: Chest Pain, Adult ED, Bloody Stools, Adult ED Additional Instructions: Keep taking all of your medications. Call your primary care doctor today to schedule an appointment for within the next 48 hours to followup on your visit here. Return to the emergency department for new or worsening symptoms including if your blood diarrhea returns, you have new/different/worse pain, fever, feel like you are going to pass out, or if you have any other concerns. Referrals: BELTRAN JHAVERI, SELF [employer]LLED [employer] OPERATOR [Primary Care Provider] - Discharge Data Discharge Date/Time-TO BE ENTERED AT DEPARTURE: 12/13/23 03:41 HPI General Mode of arrival: ambulatory . Date/Time Provider Initiated Documentation: 12/12/23 23:19 . Limitations to Documentation: no limitations . Information obtained by: patient . HPI Narrative: 48yo F with hx PUD, T2DM, asthma, conversion disorder, hx hysterectomy and cholecystectomy, presenting with rectal bleeding. 2 days ago had 4-5 episodes of diarrhea with bright red blood, today felt constipated and passed one small dark stool. Also reports burning epigastric abdominal pain and sour taste in her mouth consistent with prior episodes of reflux. No fevers, chills, rash, nausea, vomiting, chest pain, shortness of breath, or other concerns. Related Data Home Medications ?Medication ?Instructions ?Recorded ?Confirmed cholecalciferol (vitamin D3) 50 50 mcg PO DAILY 02/14/21 11/19/23 mcg (2,000 unit) capsule escitalopram oxalate 20 mg tablet 20 mg PO DAILY AM 11/12/21 11/19/23 midodrine 2.5 mg tablet 2 tab PO TID 11/12/21 11/19/23 lithium carbonate 300 mg 300 mg PO HS 03/19/22 11/19/23 tablet,extended release bupropion HCl 300 mg 24 hr tablet, 150 mg PO DAILY 09/13/22 11/19/23 extended release sitagliptin phosphate 50 mg tablet 50 mg PO DAILY 01/09/23 11/19/23 (Januvia) albuterol sulfate 90 mcg/actuation 2 puff inhalation Q6H PRN 05/01/23 11/19/23 aerosol inhaler cetirizine 10 mg tablet 10 mg PO DAILY PRN 05/01/23 11/19/23 clonazepam 0.5 mg tablet 0.5 mg PO DAILY PRN 05/01/23 11/19/23 epinephrine 0.3 mg/0.3 mL 0.3 mg IM ONCE 05/01/23 11/19/23 injection, auto-injector fluticasone propionate 230 2 puff inhalation BID 05/01/23 11/19/23 mcg-salmeterol 21 mcg/actuation HFA inhaler (Advair HFA) linaclotide 72 mcg capsule 72 mcg PO DAILY 05/01/23 11/19/23 (Linzess) potassium chloride 20 mEq oral 20 meq PO DAILY 05/01/23 11/19/23 packet (Klor-Con) quetiapine 300 mg tablet 300 mg PO QHS 05/01/23 11/19/23 tiotropium bromide 1.25 2 puff inhalation DAILY 05/01/23 11/19/23 mcg/actuation mist for inhalation (Spiriva Respimat) canagliflozin 100 mg tablet 100 mg PO DAILY 05/25/23 11/19/23 (Invokana) docusate sodium 100 mg capsule 100 mg PO TID 08/13/23 11/19/23 sucralfate 1 gram tablet (Carafate) 1 g PO QID #120 tabs 08/13/23 11/19/23 acetaminophen 500 mg tablet 500 mg PO Q6H PRN 09/06/23 11/19/23 (Tylenol Extra Strength) dexlansoprazole 30 mg 30 mg PO DAILY #30 caps 09/06/23 11/19/23 capsule,biphase delayed release (Dexilant) Previous Rx's ?Medication ?Instructions ?Recorded sucralfate 1 gram tablet (Carafate) 1 g PO QID #120 tabs 08/13/23 dexlansoprazole 30 mg 30 mg PO DAILY #30 caps 09/06/23 capsule,biphase delayed release (Dexilant) Allergies Allergy/AdvReac Type Severity Reaction Status Date / Time venom-honey bee Allergy Severe Other (See Verified 12/12/23 23:21 Comment) Sulfa (Sulfonamide Allergy HIVES Verified 12/12/23 23:21 Antibiotics) General Stated Complaint: GI Bleed MIKE: 3 Review of Systems Narrative: see HPI Exam Narrative Exam Narrative: General: Alert, well appearing, well nourished, in no acute distress. Head: Normocephalic, atraumatic Neck: Trachea midline, ?Neck supple. ENT: ?MMM.? No oropharygeal lesions or exudate. Cardiac: ?RRR, no murmurs appreciated Resp: No respiratory distress. CTAB. Abd: ?Soft, non-distended, nontender : ?No suprapubic tenderness. No CVA tenderness. Rectal: External hemorrhoids. No active bleeding. Normal internal rectal exam with no fissures or pain, brown stool on glove. Extremities: ?No deformities.? No peripheral edema. Neurologic: GCS 15. ? Moves all extremities freely against gravity Course Vital Signs Vital signs: Vital Signs Temperature 36.7 C 12/12/23 23:19 Pulse 83 12/12/23 23:19 Respiratory Rate 18 12/12/23 23:19 Blood Pressure 131/84 12/12/23 23:19 Pulse Oximetry 98 12/12/23 23:19 Temperature 36.7 C 12/12/23 23:19 Temperature Source Temporal Artery Scan 12/12/23 23:19 Pulse 71 12/13/23 01:14 Respiratory Rate 22 12/13/23 01:16 Respiratory Effort Normal, Non-Labored 12/13/23 01:16 Respiratory Depth Normal 12/13/23 01:16 Respiratory Pattern Normal 12/13/23 01:16 Blood Pressure 160/52 H 12/13/23 01:14 Blood Pressure Mean 91 12/13/23 01:14 Blood Pressure Position Sitting 12/12/23 23:19 Pulse Oximetry 100 12/13/23 01:14 Oxygen Delivery Method Room Air 12/12/23 23:19 Oxygen Flow Rate 0 12/12/23 23:19 Pain Level 10 12/13/23 01:16 Lab/Test Results Lab/Test Results: Laboratory Tests Range/Units 12/12/23 12/12/23 23:25 23:30 WBC (4.4-10.8) 10^3/uL 11.94 H RBC (3.93-5.22) 10^6/uL 5.64 H Hgb (11.2-15.7) g/dL 14.0 Hct (36.0-46.0) % 45.0 MCV (80-95) fL 80 MCH (27.0-33.0) pg 24.8 L MCHC (32.0-36.0) % 31.1 L RDW (11.7-14.6) % 15.8 H Plt Count (130-400) 10^3/uL 360 MPV (8.0-11.0) fL 10.7 Immature Gran % % 0.3 Neutrophils % % 64.7 Lymphocytes % % 26.8 Monocytes % % 5.3 Eosinophils % % 2.5 Basophils % % 0.4 Nucleated RBC % (0.0-0.3) % 0.0 Absolute Neutrophils (1.2-6.7) 10^3/uL 7.73 H Absolute Lymphocytes (1.2-3.4) 10^3/uL 3.20 Absolute Monocytes (0.1-0.8) 10^3/uL 0.63 Absolute Eosinophils (0.0-0.7) 10^3/uL 0.30 Absolute Basophils (0.0-0.2) 10^3/uL 0.05 Sodium (136-145) mmol/L 140 Potassium (3.5-5.1) mmol/L 3.1 L Chloride (98-107) mmol/L 102 Carbon Dioxide (21.0-32.0) mmol/L 27.5 Anion Gap (3-11) mmol/L 10.5 BUN (7-18) mg/dL 7 Creatinine (0.55-1.02) mg/dL 1.1 H Est GFR (CKD-EPI 2020) (mL/min/1.73m2) 61.60 Glucose (74-106) mg/dL 156 H Calcium (8.5-10.1) mg/dL 9.9 Magnesium (1.8-2.4) mg/dL 2.1 Total Bilirubin (0.2-1.0) mg/dL 0.25 AST (15-37) U/L 17 ALT (14-59) U/L 20 Alkaline Phosphatase (46-116) U/L 142 H Total Protein (6.4-8.2) g/dL 8.2 Albumin (3.4-5.0) g/dL 3.9 Lipase (16-77) U/L 135 H Urine Color (Yellow) Yellow Urine Clarity (Clear) Clear Urine pH (5-8) 6.5 Ur Specific Cascade (1.005-1.025) 1.015 Urine Protein (Neg-Trace) mg/dL Negative Urine Ketones (Negative) mg/dL Negative Urine Blood (Negative) Negative Urine Nitrite (Negative) Negative Urine Bilirubin (Negative) Negative Urine Urobilinogen (Up to 0.2) mg/dL 0.2 Ur Leukocyte Esterase (Negative) Negative Urine RBC (0-2) HPF Negative Urine WBC (0-5) HPF 0-2 Ur Epithelial Cells (Negative) HPF Rare Urine Crystals (Negative) HPF Negative Urine Bacteria (Negative) HPF Negative Urine Casts (Negative) LPF Negative Urine Mucus (Negative) Negative Ur Culture Indicated? No Urine Glucose (Negative) mg/dL >=1000 H Medical Decision Making 48yo F with hx PUD, T2DM, asthma, conversion disorder, hx hysterectomy and ch olecystectomy, presenting with rectal bleeding. 2 days ago had 4-5 episodes of diarrhea with bright red blood, today felt constipated and passed one small dark stool. Also reports burning epigastric abdominal pain and sour taste in her mouth consistent with prior episodes of reflux. Vital signs reassuring on arrival, abdomen nontender including no epigastric tenderness, external hemmorhoids on rectal exam with no active bleeding and normal digital rectal exam with brown stool. Most likely PUD vs hemmrhoidal bleeding; exam not concerning for perforated ulcer or acute pancreatitis. Less likely bacterial gastroenteritis as no bloody diarrhea ceased in 24 hours and she is afebrile. Will treat symptoms with carafate, GI cocktail, and evaluate further with labs and CT imaging. Labs reviewed as below, CBC reassuring with no significant leukocytosis or anemia, CMP with mild hypokalemia otherwise reassuring (oral replacement ordered), lipase mildly elevated at 135 (upper limit of normal 77) not particularly suggestive of pancreatitis, UA without hematuria or signs of infection. Pt subsequently reported worsening severe burning epigastric/chest pain; EKG shows NSR, appropriate intervals, no ST segment or T wave abnormalities. Troponin added on; initial troponin 4. Repeat troponin 1.5 hours after episode of pain was 5. HEART score 3 (age, RF), low risk. Would not further pursue ACS/trend troponins. CT independently reviewed, no obstruction or free fluid on my view, agree with radiology read below. On reassessment she is well appearing with reassuring vital signs, no chest pain, and no abdominal tenderness. Has been given IV protonix here in the ED. Concern remains for bleeding internal hemmrhoids vs bleeding peptic ulcer (favor hemorrhoids based on exam). She was advised to continue her home medication regimen including dexlansoprazole and carafate and to followup with her PCP within the next 48 hours. Discharged home; discharge instructions and return pr ecautions were reviewed with patient who verbalized understanding. All questions were answered and she is in full agreement with the plan. Imaging Data Radiologic Study: Imaging: CT Scan Radiologist's impression: IMPRESSION: 1. No acute findings to explain reported symptoms. 2. Nonacute findings as outlined above Lab Data Lab results reviewed: Yes I reviewed the patient's lab results. Labs: Laboratory Tests Range/Units 12/12/23 12/12/23 23:25 23:30 WBC (4.4-10.8) 10^3/uL 11.94 H RBC (3.93-5.22) 10^6/uL 5.64 H Hgb (11.2-15.7) g/dL 14.0 Hct (36.0-46.0) % 45.0 MCV (80-95) fL 80 MCH (27.0-33.0) pg 24.8 L MCHC (32.0-36.0) % 31.1 L RDW (11.7-14.6) % 15.8 H Plt Count (130-400) 10^3/uL 360 MPV (8.0-11.0) fL 10.7 Immature Gran % % 0.3 Neutrophils % % 64.7 Lymphocytes % % 26.8 Monocytes % % 5.3 Eosinophils % % 2.5 Basophils % % 0.4 Nucleated RBC % (0.0-0.3) % 0.0 Absolute Neutrophils (1.2-6.7) 10^3/uL 7.73 H Absolute Lymphocytes (1.2-3.4) 10^3/uL 3.20 Absolute Monocytes (0.1-0.8) 10^3/uL 0.63 Absolute Eosinophils (0.0-0.7) 10^3/uL 0.30 Absolute Basophils (0.0-0.2) 10^3/uL 0.05 Sodium (136-145) mmol/L 140 Potassium (3.5-5.1) mmol/L 3.1 L Chloride (98-107) mmol/L 102 Carbon Dioxide (21.0-32.0) mmol/L 27.5 Anion Gap (3-11) mmol/L 10.5 BUN (7-18) mg/dL 7 Creatinine (0.55-1.02) mg/dL 1.1 H Est GFR (CKD-EPI 2020) (mL/min/1.73m2) 61.60 Glucose (74-106) mg/dL 156 H Calcium (8.5-10.1) mg/dL 9.9 Magnesium (1.8-2.4) mg/dL 2.1 Total Bilirubin (0.2-1.0) mg/dL 0.25 AST (15-37) U/L 17 ALT (14-59) U/L 20 Alkaline Phosphatase (46-116) U/L 142 H Troponin I (<or=51) ng/L 4 Total Protein (6.4-8.2) g/dL 8.2 Albumin (3.4-5.0) g/dL 3.9 Lipase (16-77) U/L 135 H Urine Color (Yellow) Yellow Urine Clarity (Clear) Clear Urine pH (5-8) 6.5 Ur Specific Cascade (1.005-1.025) 1.015 Urine Protein (Neg-Trace) mg/dL Negative Urine Ketones (Negative) mg/dL Negative Urine Blood (Negative) Negative Urine Nitrite (Negative) Negative Urine Bilirubin (Negative) Negative Urine Urobilinogen (Up to 0.2) mg/dL 0.2 Ur Leukocyte Esterase (Negative) Negative Urine RBC (0-2) HPF Negative Urine WBC (0-5) HPF 0-2 Ur Epithelial Cells (Negative) HPF Rare Urine Crystals (Negative) HPF Negative Urine Bacteria (Negative) HPF Negative Urine Casts (Negative) LPF Negative Urine Mucus (Negative) Negative Ur Culture Indicated? No Urine Glucose (Negative) mg/dL >=1000 H Quality:SDOH Health Related Social Needs: No Data to Display PFSH All Active Problems (Updated 12/20/23 @ 00:07 by THERESE JENNINGS) Acute epigastric pain (Acute) History of peptic ulcer disease (Acute) GI bleed (Chronic) Rectal bleeding (Acute) Suprapubic pain (Acute) Hiatal hernia with GERD (Acute) Chronic erosive gastritis (Acute) Bipolar 2 disorder (Chronic) Type 2 diabetes mellitus with peripheral neuropathy (Acute) Chest pain, unspecified (Acute) Anxiety (Chronic) Psychologic conversion disorder (Acute) Urinary incontinence (Acute) Seasonal affective disorder (Acute) Tinea pedis (Acute) Onychomycosis (Acute) PVD (peripheral vascular disease) (Chronic) Nail dystrophy (Acute) Type 2 diabetes mellitus (Chronic) Shortness of breath (Acute) Muscle pain (Acute) Atypical chest pain (Acute) GERD (gastroesophageal reflux disease) (Chronic) Nausea and vomiting in adult (Acute) Abnormal CT of the abdomen (Acute) N&V (nausea and vomiting) (Acute) Hypokalemia (Acute) Right lower quadrant abdominal pain (Acute) Gastroesophageal reflux disease (Chronic) Asthma (Chronic) Depression (Chronic) Takes Fluoxetine 20mg QD with good impact on her depression, denies any SI. Encouraged to continue. to try to tame a benyurde. Medical History RLQ abdominal tenderness Pre-syncope Orthostatic hypotension Nonspecific paroxysmal spell Dizziness Vertigo Gallstones without obstruction of gallbladder Calculus of gallbladder with chronic cholecystitis without obstruction Pacemaker Gestational diabetes mellitus High ankle sprain of right lower extremity Acne (04/21/13) Back pain Taking prednisone 60mg QD for 4 days. Currently on day 2. Not feeling it is making much of a difference but she was encouraged to take for the full 4 days. Also suggested she take the muscle relaxer only PRN as it makes her quite drowsy. Encouraged to take at night. To help with rest. Other valenzuela, suggested she increse Aleve to AM & PM dose, then supplement with 1000mg Acetaminophen every 4-6 hours up to a total of 4000mg/day. Suggested ice might help more than heat but either should be limited to only 20 minutes at a time. Use topicals (Solopas Gel or Aspercreame with Lidocaine seem to be quite helpful. Try to avoid sitting or standing still for prolonged periods of time. Walking on flat ground is encourage. Surgical History History of cholecystectomy (~03/2019) History of esophagogastroduodenoscopy (EGD) (~07/2022) History of hysterectomy History of bilateral ligation of fallopian tubes History of discectomy Status post dilation and curettage S/P endometrial ablation irregular bleeding has restarted, neg EM bx 01/2016 discectomy (~2003) Ligation of fallopian tube Endometrial Ablation (~2009) Dilation and curettage X 2 with losses ANAL SURGERY surgical drainage of anal fissure Family History Mother Hyperlipidemia Thyroid disorder Father Essential hypertension Diabetes Personal history of malignant neoplasm prostate Heart disease Hyperlipidemia Myocardial infarction Social History Smoking/Tobacco Use Status: Former Tobacco Use Quit Date: 04/02/22 Tobacco: How many years used: 20 Smoking risk assessment performed?: Yes Alcohol Intake: never Drug use: Never Substance use type: does not use Household members: family and other Details: Lives with demented mother and her brother Housing: house 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
[2023-12-13 01:46] LABS: Troponin I 4 ng/L (<or=51)
[2023-12-13 02:49] LABS: Troponin I 5 ng/L (<or=51)
[2023-12-13] MEDS: Pantoprazole 40 MG VIAL IVP (03:26)
== END 2023-12-13 03:41 | disposition home or self-care (01) ==
PROVIDERS: Emergency Provider Student in an Organized Health Care Education/Training Program; PCP Nurse Practitioner Family
DX: K92.2 Gastrointestinal hemorrhage, unspecified (principal); R10.13 Epigastric pain; E11.9 Type 2 diabetes mellitus without complications; Z90.49 Acquired absence of other specified parts of digestive tract; Z90.710 Acquired absence of both cervix and uterus; Z95.0 Presence of cardiac pacemaker; Z79.84 Long term (current) use of oral hypoglycemic drugs; Z87.891 Personal history of nicotine dependence
CPT/HCPCS: 80053; 83690; 93005; 96374; 99285; 74177; 81003; 81015; 83735; 84484; 85025; 93010; 99284; J2470; J3490

== ENCOUNTER 2023-12-18 14:57 | Outpatient (REF) | payer MEDICARE, MEDICAID, SELFPAY ==
--- OUTSIDE RECORDS SUMMARY | 2023-12-18 15:06 | XMS_ITS | Continuity of Care Document ---
Author Organization [facility] [facility] Address [address] [place] [id number] Care Team Providers Care Marine Engineer Cpvec Name Role Phone BELTRAN JHAVERI APRN Primary Care Physician [phone] Encounter [facility] NBR [id number] Date(s): 12/15/23 - 12/15/[address] [address]- [place] Encounter Diagnosis Gastritis(Discharge Diagnosis) - 12/15/23 Discharge Disposition: Home or Self Care Attending Physician: Travis Leong DO Admitting Physician: Travis Leong DO Allergies, Adverse Reactions, Alerts Substance Criticality Severity Reaction Reaction Severity Status sulfa drugs Low criticality Mild Hives Ac tive Venom 1 High criticality Severe Anaphylactic reaction Active 1bee venom Assessment and Plan Extracted from: Title:ED Provider Note Author:Brianna Vera Date:12/15/23 Assessment/Plan 1.??Gastritis??K29.70 ??Patient be discharged to follow-up with GI here at [facility] and understands that no interventions will be made today.?? She can if she desires double up on her Nexium??in the short-term. ??She should clear this with GI on Sunday??and she will return for any new or worsening conditions. ??Patient??agrees with and understands discharge plan Patient Education Gastritis, Adult Follow Up With When Contact Information Travis Lentz MD Within 1 to [address] [place] [phone]- ?? Additional Instructions: Follow-up??to see if they want to have you??in for endoscopic evaluation prior to??your scheduled April appointment Follow-up with your primary care Within 1 week Additional Instructions: Follow-up with your primary care as needed, they will be able to reevaluate if necessary Return to ED if concerns ?? Medications Advair HFA 230 mcg-21 mcg/inh inhalation [...] 0 Refill(s) Start Date: 11/29/22 Status: Ordered EPINEPHrine 0.3 [...] EVERY DAY Start Date: 02/05/23 Status: Ordered levalbuterol 0.63 mg/3 mL inhalation solution 0.63 mg = 3 mL, NEB, TID, # 24 EA, 0 Refill(s) Start Date: 11/29/22 Status: Ordered Linzess 72 mcg oral capsule 72 mcg = 1 cap, Oral, Daily, do not crush or chew Taking 29mcg now, # 90 cap, 0 Refill(s) Start Date: [...] 0 Refill(s) Start Date: 11/29/22 Status: Ordered metFORMIN 500 mg oral tablet 500 mg = 1 tab, Daily, 0 Refill(s) Start Date: 12/15/23 Status: Ordered midodrine 2.5 mg oral tablet 5 mg = 2 tab, TID, 0 Refill(s) Start Date: 12/15/23 Status: Ordered midodrine 2.5 mg oral tablet [...] 0 Refill(s) Start Date: 02/05/23 Status: Ordered Mental Status 12/15/23 Eye Opening Response Tiffanie Spontaneous ly Best Verbal Response Hiltons Oriented Best Motor Response Hiltons Obeys comman ds Hiltons Coma Score 15 Problem List Condition Confirmation Course Effective Dates [...] to large bolus of food 2neck 3back Results Laboratory List Name Date .Morphology (LTTL) 12/15/23 CBC w/ Diff 12/15/23 Comprehensive Metabolic Panel (CMP) 12/14 Lactic Acid 12/15/23 Lipase Level 12/15/23 PT/ INR 12/15/23 Urinalysis with Micro if Indicated and C ulture if Indicated 12/15/23 Automated Diff 12/15/23 Most recent to oldest [Reference Range]: 1 WBC [4.8-10.8 K/mcL] 8.4 K/mcL (12/15/23 11:05 AM) RBC [4.20-5.40 Million/mcL] 5.27 Million /mcL (12/15/23 11:05 AM) Neutro Auto [42.2-75.2 %] 60.1 % (12/15/23 11:05 AM) Lymph Auto [20.5-51.1 %] 28.2 % (12/15/23 11:05 AM) Weston Auto [1.7-9.3 %] 7.9 % (12/15/23 11:05 AM) Basophil Auto [0.0-0.8 %] 0.5 % (12/15/23 11:05 AM) Prothrombin Time [9.1-10.6 seconds] 9.9 seconds (12/15/23 11:05 AM) INR [0.9-1.1] 1.0 1 (12/15/23 11:05 AM) BUN [7-25 mg/dL] 8 mg/dL (12/15/23 11:05 AM) UA Color LIGHT YELL *NA* (12/15/23 11:05 AM) Glucose Level [70-109 mg/dL] 97 mg/dL (12/15/23 11:05 AM) Potassium Level [3.5-5.1 mmol/L] 3.2 mmo l/L *LOW* (12/15/23 11:05 AM) Baso Absolute [0.0-0.2 K/mcL] 0.0 K/mcL (12/15/23 11:05 AM) MCV [81.0-99.0 fL] 80.3 fL *LOW* (12/15/23 1105 AM) UA Urobilinogen [0.2] 0.2 *NA* (12/15/23 11:05 AM) RBC Morph [Normal] Abnormal *ABN* (12/15/23 1105 AM) UA Bili [Negative] Negative *NA* (12/15/23 1105 AM) UA Ketones [Negative] Negative *NA* (12/15/23 11:05 AM) AST [13-39 IntlUnit/L] 17 IntlUnit/L (12/15/23 11:05 AM) ALT [7-52 IntlUnit/L] 14 IntlUnit/L (12/15/23 11:05 AM) MCHC [32.0-37.0 g/dL] 31.2 g/dL *LOW* (12/15/2305 AM) Osmolality [275-295 mOsm/kg] 274 mOsm/kg *LOW* (12/15/23:05 AM) Sodium Level [136-145 mmol/L] 138 mmol/L (12/15/23 11:05 AM) UA Leuk Est [Negative] Negative (12/15/23 11:05 AM) Lymph Absolute [1.2-3.4 K/mcL] 2.4 K/mcL (12/15/23 11:05 AM) UA Nitrite [Negative] Negative *NA* (12/15/2305 AM) UA Glucose [Negative] >=1000 *NA* (12/15/23 11:05 AM) Hct [37.0-47.0 %] 42.3 % (12/15/23 11:05 AM) Lipase Level [11-82 unit/L] 78 unit/L 2 (12/15/23 11:05 AM) Hypochromia 1+ *ABN* (12/15/23 11:05 AM) Calcium Level [8.6-10.3 mg/dL] 9.8 mg/dL (12/15/23 11:05 AM) Weston Absolute [0.1-0.6 K/mcL] 0.7 K/mcL *HI* (12/15/23 11:05 AM) Albumin Level [3.5-5.7 g/dL] 4.6 g/dL (12/15/23 1105 AM) Protein Total [6.4-8.9 g/dL] 7.9 g/dL (12/15/23 11:05 AM) UA Protein [Negative] Negative *NA* (12/15/2305 AM) MCH [27.0-31.0 pg] 25.1 pg *LOW* (12/15/23 1105 AM) Neutro Absolute [1.4-6.5 K/mcL] 5.1 K/mc L (12/15/23 11:05 AM) Bilirubin Total [0.3-1.0 mg/dL] 0.4 mg/d L (12/15/23 1105 AM) Hgb [12.0-16.0 g/dL] 13.2 g/dL (12/15/23 11:05 AM) Alk Phos [34-104 IntlUnit/L] 108 IntlUni t/L *HI* (12/15/23 11:05 AM) UA Blood [Negative] Negative (12/15/23 11:05 AM) MPV [7.4-10.4 fL] 9.0 fL (12/15/23 11:05 AM) UA Spec Grav [1.001-1.030] 1.015 (12/15/23 11:05 AM) Platelets [130-400 K/mcL] 338 K/mcL (12/15/23 11:05 AM) CO2 [21-31 mmol/L] 29 mmol/L (12/15/23 11:05 AM) Eos Absolute [0.0-0.2 K/mcL] 0.3 K/mcL *HI* (12/15/23 11:05 AM) Lactic Acid Lvl [0.5-2.2 mmol/L] 0.9 mmo l/L (12/15/23 11:05 AM) UA pH [5.00-9.00] 5.50 (12/15/23 11:05 AM) UA Appear [Clear] Clear (12/15/23 11:05 AM) Chloride Level [98-107 mmol/L] 104 mmol/ L (12/15/23 11:05 AM) RDW-CV [11.5-14.5 %] 17.2 % *HI* (12/15/23 11:05 AM) A/G Ratio [1.0-2.5 g/dL] 1.4 g/dL (12/15/23 11:05 AM) BUN/Creat Ratio [8.0-20.0] 8.0 (12/15/23 11:05 AM) Globulin [2.3-3.5 g/dL] 3.3 g/dL (12/15/23 11:05 AM) Ovalocytes 1+ *ABN* (12/15/23 11:05 AM) Slide Review Morph Only (12/15/23 11:05 AM) Urine Srce Clean Catch (12/15/23 11:05 AM) Anisocyte 1+ (12/15/23 11:05 AM) Creatinine Level [0.60-1.20 mg/dL] 1.00 mg/dL (12/15/23 11:05 AM) Plt Estimation Normal (12/15/23 11:05 AM) Anion Gap [3.0-12.0] 5.0 (12/15/23 11:05 AM) Eos, Auto [0.00-3.00 %] 3.30 % *HI* (12/15/23 11:05 AM) eGFR CKD-EPI [>=60 mL/min/1.73 m2] 69 mL /min/1.73 m2 (12/15/23 11:05 AM) 1Interpretive Data: THERAPEUTIC INR RANGES FOR WARFARIN Uncomplicated venous thromboembolic disease 2-3 Lupus Anticoagulant and recurrent thrombosis 3-3.5 Mechanical prosthetic valve or recurrent thrombosis 2.5-3.5 2Interpretive Data: U-vttrpa-t-benzoquinone imine (meabolite of Acetaminophen) will generate erroneously low lipase results in samples for patients that have taken toxic doses of acetaminophen. Radiology Reports * Exam Date Time Procedure Performing Provider Status 12/15/23 1:[address] Angio Abdomen and Pelvis Mary Louie; Auth (Verified) Notes: (CT Angio Abdomen and Pelvis) Reason For Exam: GI bleed, three-phase study CT Angio Abdomen and Pelvis PROCEDURE INFORMATION: Exam: CTA Abdomen and Pelvis With Contrast Exam date and time: 12/15/2023 1:16 PM Age: 48 years old Clinical indication: Abdominal pain; Generalized; TECHNIQUE: Imaging protocol: Computed tomographic angiography of the abdomen and pelvis with contrast. Exam focused on the arteries. 3D rendering (Not supervised by radiologist): MIP and/or 3D reconstructed images were created by the technologist. Radiation optimization: All CT scans at this facility use at least one of these dose optimization techniques: automated exposure control; mA and/or kV adjustment per patient size (includes targeted exams where dose is matched to clinical indication); or iterative reconstruction. Contrast material: ISOVUE 370; Contrast volume: 100 ml; Contrast route: INTRAVENOUS (IV); COMPARISON: No relevant prior studies available. FINDINGS: Aorta: No aortic aneurysm. No aortic dissection. Celiac trunk and mesenteric arteries: No occlusion or significant stenosis. Renal arteries: No occlusion or significant stenosis. Right iliac arteries: No occlusion or significant stenosis. Left iliac arteries: No occlusion or significant stenosis. Liver: No mass. Gallbladder and biliary ducts: Gallbladder is surgically absent. Pancreas: Unremarkable. No mass. No ductal dilation. Spleen: Unremarkable. No splenomegaly. Adrenal glands: Unremarkable. No mass. Kidneys and ureters: 3.6 cm fluid density cyst in the right kidney. No hydronephrosis or stones. Stomach and bowel: Small fat containing hiatal hernia. No evidence of small bowel obstruction. No mucosal thickening. Appendix: No evidence of appendicitis. Intraperitoneal space: Unremarkable. No free air. No significant fluid collection. Lymph nodes: Unremarkable. No enlarged lymph nodes. Urinary bladder: Unremarkable. No mass. Reproductive: Unremarkable as visualized. Bones/joints: Degenerative disc height loss at L5-S1. No acute fracture. Soft tissues: Unremarkable. IMPRESSION: 1. No CTA evidence of active GI bleed or other acute findings in the abdomen and pelvis. If continued clinical suspicion for GI bleed, recommend further evaluation with nuclear medicine tagged red blood cell study. 2. Chronic findings, as above. THIS DOCUMENT HAS BEEN ELECTRONICALLY SIGNED BY POLI MANZO MD on 12/15/2023 01:46 PM Final Signed by: Poli Manzo MD Signed (Electronic Signature): 12/15/2023 1:46 pm Vital Signs Most recent to oldest [Reference Range]: 1 2 3 Temperature Temporal Artery [36-38 Deg C] 36 Deg C (12/15/23 10:30 AM) Peripheral Pulse Rate [60-100 bpm] 78 bpm (12/15/23 12:25 PM) 83 bpm (12/15/23 11:29 AM) 84 bpm (12/15/23 10:30 AM) Respiratory Rate [12-24 br/min] 18 br/min (12/15/23 10:30 AM) Blood Pressure [90-140/60-90 mmHg] 101/59mmHg (12/15/23 12:00 PM) 108/83mmHg (12/15/23 11:10 AM) 136/93mmHg (12/15/23 10:30 AM) Mean Arterial Pressure, Cuff [65-140 mmHg] 73 mmHg (12/15/23 12:00 PM) 107 mmHg (12/15/23 10:30 AM) Mean Arterial Pressure Cuff 73 mmHg (12/15/23 12:00 PM) 92 mmHg (12/15/23 11:10 AM) Weight 84 kg (12/15/23 10:30 AM) Weight Dosing 84.000 kg (12/15/23 10:30 AM) Height 162 cm (12/15/23 10:30 AM) Body Mass Index 32.01 kg/m2 (12/15/23 10:30 AM) Social History Social History Type Response Tobacco Former tobacco user Tobacco Use:. Sex Sex Representation Female (finding) Hospital Discharge Instructions Patient Education 12/15/2023 13:11:37 Gastritis, Adult Gastritis, Adult Gastritis is inflammation of the stomach. There are two kinds of gastritis: ??? Acute gastritis. This kind develops suddenly. ??? Chronic gastritis. This kind is much more common. It develops slowly and lasts for a long time. Gastritis happens when the lining of the stomach becomes weak or gets damaged. Without treatment, gastritis can lead to stomach bleeding and ulcers. What are the causes? This condition may be caused by: ??? An infection. ??? Drinking too much alcohol. ??? Certain medicines. These include steroids, antibiotics, and some icwq-ypo-awchcvi medicines, such as aspirin or ibuprofen. ??? Having too much acid in the stomach. ??? Having a disease of the stomach. Other causes may include: ??? An allergic reaction. ??? Some cancer treatments (radiation). ??? Smoking cigarettes or the use of products that contain nicotine or tobacco. In some cases, the cause of this condition is not known. What increases the risk? Having a disease of the intestines. ??? Having a disease in which the body's immune system attacks the body (autoimmune disease), such as Crohn's disease. ??? Using aspirin or ibuprofen and other NSAIDs to treat other conditions, such as heart disease orchronic pain. ??? Stress. What are the signs or symptoms? Symptoms of this condition include: ??? Pain or a burning sensation in the upper abdomen. ??? Nausea. ??? Vomiting. ??? An uncomfortable feeling of fullness after eating. ??? Weight loss. ??? Bad breath. ??? Blood in your vomit or stool (feces). In some cases, there are no symptoms. How is this diagnosed? This condition may be diagnosed based on your medical history, a physical exam, and tests. Tests may include: ??? Your medical history and a description of your symptoms. ??? A physical exam. ??? Tests. These can include: ??? Blood tests. ??? Stool tests. ??? A test in which a thin, flexible instrument with a light and a camera is passed down the esophagus and into the stomach (upper endoscopy). ??? A test in which a tissue sample is removed to look at it under a microscope (biopsy). How is this treated? This condition may be treated with medicines. The medicines that are used vary depending on the cause of the gastritis. ??? If the condition is caused by a bacterial infection, you may be given antibiotic medicines. ??? If the condition is caused by too much acid in the stomach, you may be given medicines called H2 blockers, proton pump inhibitors, or antacids. Treatment may also involve stopping the use of certain medicines such as aspirin or ibuprofen and other NSAIDs. Follow these instructions at home: Medicines ??? Take gtlg-rzf-azgerrp and prescription medicines only as told by your health care provider. ??? If you were prescribed an antibiotic medicine, take it as told by your health care provider. Donot stop taking the antibiotic even if you start to feel better. Alcohol use ??? Do not drink alcohol if: ??? Your health care provider tells you not to drink. ??? You are , may be , or are planning to become . ??? If you drink alcohol: ??? Limit your use to: ??? 0???1 drink a day for women. ??? 0???2 drinks a day for men. ??? Know how much alcohol is in your drink. In the [place] one drink equals one 12 oz bottle of beer (355 mL), one 5 oz glass of wine (148 mL), or one 1?? oz glass of hard liquor (44 mL). General instructions ??? Eat small, frequent meals instead of large meals. ??? Avoid foods and drinks that make your symptoms worse. ??? Talk with your health care provider about ways to manage stress, such as getting regular exercise or practicing deep breathing, meditation, or yoga. ??? Do not use any products that contain nicotine or tobacco. These products include cigarettes, chewing tobacco, and vaping devices, such as e-cigarettes. If you need help quitting, ask your health care provider. ??? Drink enough fluid to keep your urine pale yellow. ??? Keep all follow-up visits. This is important. Contact a health care provider if: ??? Your symptoms get worse. ??? Your abdominal pain gets worse. ??? Your symptoms return after treatment. ??? You have a fever. Get help right away if: ??? You vomit blood or a substance that looks like coffee grounds. ??? You have black or dark red stools. ??? You are unable to keep fluids down. These symptoms may represent a serious problem that is an emergency. Do not wait to see if the symptoms will go away. Get medical help right away. Call your local emergency services (911 in the [place] Do not drive yourself to the hospital. Summary ??? Gastritis is inflammation of the lining of the stomach that can occur suddenly (acute) or develop slowly over time (chronic). ??? This condition is diagnosed with a medical history, a physical exam, or tests. ??? This condition may be treated with medicines to treat infection or medicines to reduce the amount of acid in your stomach. ??? Follow your health care provider's instructions about taking medicines, making changes to your diet, and knowing when to call for help. This information is not intended to replace advice given to you by your health care provider. Make sure you discuss any questions you have with your health care provider. Document Revised: 07/23/2021 Document Reviewed: 07/23/2021 Elsevier Patient Education ?? 2022 [employer] Follow Up Care 12/15/2023 10:38:53 With:Travis Lentz MD Address: [address] [place] [address] [place] [address]- When:1 to 2 weeks Comments:Follow-up??to see if they want to have you??in for endoscopic evaluation prior to??your scheduled April appointment With:Follow-up with your primary care Address: When:1 week Comments:Follow-up with your primary care as needed, they will be able to reevaluate if necessaryReturn to ED if concerns Physician Emergency department Note * HOLLY Vera: PERFORM Event Display: ED Note Physician Authored Date: [id number] ARTHUR PHELPS Mumtaz :1975 Age:48 years Sex:Female Visit Date:12/15/2023 Primary Care Physician: BELTRAN JHAVERI APRN Basic Information Time Seen: HOLLY Vera / 12/15/2023 10:45 Chief Complaint Black loose stools since Sunday. Has IBS, recently had Linzess dosing decreased. 4-5x/day BMs, seenat [facility] 2 days ago, given protonix sent home. History Of Present Illness: Patient is a 48-year-old female presents emergency department with abdominal discomfort that has been ongoing for some time. ??She notes that??2 days ago she was seen in the [facility] emergency department where a CT scan was performed??she was given an extra dose of Protonix and told to follow-up with her GI specialist. ??Her hemoglobin at that time was discomforting??but she continues to have black stools.?? At this time patient has been followed by GI here in??[place]??but does not have an appointment with them for some time.?? She notes that she is currently taking??Nexium, Carafate and famotidine??but continues to have GI distress and black stools. She presents for reevaluation??as she was unable to??tolerate being at work today and had a??loose black stool??prior to arrival. Review of Systems: See HPI Physical Exam Vitals & Measurements T:??36?C ??(Temporal Artery)?? HR:??78??(Peripheral)?? RR:??18?? BP:??101/59?? SpO2:??99%?? HT:??162??cm?? WT:??84??kg?? BMI:??32.01?? Pain Score:??10?? O2 Therapy:??Room air?? Patient alert oriented age-appropriate well-nourished nontoxic Normocephalic atraumatic Neck supple nontender EOM intact, PERRLA, sclera nonicteric Clear to auscultation bilaterally Regular rate and rhythm no murmurs Abdominal exam reveals normal bowel sounds, negative rebound tenderness, negative psoas sign,??mildepigastric discomfort upon palpation with no rigidity bowel sounds are normal Appropriate mood and affect Medical Decision Making: ?? I do not feel that any further workup is necessary at this time.While here in the emerged part patient had a three-phase CT to rule out GI bleed. ??At this time there is no acute findings appreciated Laboratory evaluation was comforting for a normal hemoglobin,??kidney function liver function appropriate Procedure No Qualifying Data Assessment/Plan 1.??Gastritis??K29.70 ??Patient be discharged to follow-up with GI here at [facility] and understands that no interventions willbe made today.?? She can if she desires double up on her Nexium??in the short-term. ??She should clear this with GI on Sunday??and she will return for any new or worsening conditions. ??Patient??agrees with and understands discharge plan Patient Education Gastritis, Adult Follow Up With When Contact Information Travis Lentz MD Within 1 to 2 weeks [address] [place] [address]- Additional Instructions: Follow-up??to see if they want to have you??in for endoscopic evaluation prior to??your scheduled April appointment Follow-up with your primary care Within 1 week Additional Instructions: Follow-up with your primary care as needed, they will be able to reevaluate if necessary Return to ED if concerns Medication Reconciliation Unchanged buPROPion (buPROPion 150 mg/24 hours (XL) oral tablet, extended release)1 tab Oral (given by mouth)every 24 hours. ?? canagliflozin (Invokana 100 mg oral tablet)TAKE ONE TABLET BY MOUTH EVERY DAY. ?? cetirizine (cetirizine 10 mg oral tablet)1 tab Oral (given by mouth) every day. ?? EPINEPHrine (EPINEPHrine 0.3 mg injectable kit)0.3 Milligrams Subcutaneous (under the skin) once. ?? escitalopram (escitalopram 20 mg oral tablet)TAKE ONE TABLET BY MOUTH EVERY DAY. ?? esomeprazole (esomeprazole 40 mg oral delayed release capsule)1 Capsules Oral (given by mouth) every day. ?? famotidine (famotidine 20 mg oral tablet)TAKE TWO TABLETS BY MOUTH AT BEDTIME. ?? fluticasone-salmeterol (Advair HFA 230 mcg-21 mcg/inh inhalation aerosol)2 Puffs Inhale (breathe in) 2 times a day. ?? levalbuterol (levalbuterol 0.63 mg/3 mL inhalation solution)3 Milliliters Nebulized inhalation (inhale using nebulizer) 3 times a day. ?? linaclotide (Linzess 72 mcg oral capsule)1 Capsules Oral (given by mouth) every day. do not crush or chew Taking 29mcg now. ?? lithium (lithium 300 mg oral tablet, extended release)1 tab Oral (given by mouth) every day. ?? loperamide (loperamide 2 mg oral capsule)TAKE TWO CAPSULES BY MOUTH ONCE FOR 1 DOSE; THEN TAKE ONE CAPSULE BY MOUTH AFTER EACH LOOSE STOOL +MAX 8 PER DAY+. ?? meclizine (meclizine 25 mg oral tablet)1 tab Oral (given by mouth) every day. ?? metFORMIN (metFORMIN 500 mg oral tablet)1 tab every day. ?? midodrine (midodrine 2.5 mg oral tablet)2 tab Oral (given by mouth) 3 times a day. ?? midodrine (midodrine 2.5 mg oral tablet)2 tab 3 times a day. ?? ondansetron (ondansetron 4 mg oral tablet)1 tab Oral (given by mouth) once. ?? Other Prescription (D3 CAP 2000UNIT) ?? Other Prescription (ONETOUCH DEL MIS PLUS 30G) ?? potassium chloride (Potassium Chloride (Eqv-K-Tab) 20 mEq oral tablet, extended release)TAKE 1 TABLET BY MOUTH ONCE DAILY. ?? QUEtiapine (QUEtiapine 300 mg oral tablet)1 tab Oral (given by mouth) 2 times a day. ?? tiotropium (Spiriva Respimat 10 ACT 2.5 mcg/inh inhalation aerosol)2 Puffs Inhale (breathe in) every day. Problem List/Past Medical History Ongoing Arthritis Asthma [...] ???EGD - Esophagogastroduodenoscopy (05/28/2020)???Cholecystectomy???Cystoscopy???Surgery???Surgery???TL - Tubal ligation Medication Administration Given Protonix, 40 mg, IV Push Allergies Venom??(Anaphylactic reaction) sulfa drugs??(Hives) Social History Alcohol Never Electronic Cigarette/Vaping Electronic Cigarette Use: Use, within last 90 days. Type: Flavored only. Use per Day: 26-50 Inhales/day. Substance Use Never Tobacco Former tobacco user Tobacco Use:. Family History Family history is unknown Diagnostic Results CT Angio Abdomen and Pelvis 12/15/2023 13:[address] Angio Abdomen and Pelvis ?? 12/15/23 13:16:08 PROCEDURE INFORMATION: Exam: CTA Abdomen and Pelvis With Contrast Exam date and time: 12/15/2023 1:16 PM Age: 48 years old Clinical indication: Abdominal pain; Generalized; ?? TECHNIQUE: Imaging protocol: Computed tomographic angiography of the abdomen and pelvis with contrast. Exam focused on the arteries. 3D rendering (Not supervised by radiologist): MIP and/or 3D reconstructed images were created by the technologist. Radiation optimization: All CT scans at this facility use at least one of these dose optimization techniques: automated exposure control; mA and/or kV adjustment per patient size (includes targeted exams where dose is matched to clinical indication); or iterative reconstruction. Contrast material: ISOVUE 370; Contrast volume: 100 ml; Contrast route: INTRAVENOUS (IV); ?? COMPARISON: No relevant prior studies available. ?? FINDINGS: ?? Aorta: No aortic aneurysm. No aortic dissection. Celiac trunk and mesenteric arteries: No occlusion or significant stenosis. Renal arteries: No occlusion or significant stenosis. Right iliac arteries: No occlusion or significant stenosis. Left iliac arteries: No occlusion or significant stenosis. ?? Liver: No mass. Gallbladder and biliary ducts: Gallbladder is surgically absent. Pancreas: Unremarkable. No mass. No ductal dilation. Spleen: Unremarkable. No splenomegaly. Adrenal glands: Unremarkable. No mass. Kidneys and ureters: 3.6 cm fluid density cyst in the right kidney. No hydronephrosis or stones. Stomach and bowel: Small fat containing hiatal hernia. No evidence of small bowel obstruction. No mucosal thickening. Appendix: No evidence of appendicitis. Intraperitoneal space: Unremarkable. No free air. No significant fluid collection. Lymph nodes: Unremarkable. No enlarged lymph nodes. Urinary bladder: Unremarkable. No mass. Reproductive: Unremarkable as visualized. Bones/joints: Degenerative disc height loss at L5-S1. No acute fracture. Soft tissues: Unremarkable. ?? IMPRESSION: 1. No CTA evidence of active GI bleed or other acute findings in the abdomen and pelvis. If continued clinical suspicion for GI bleed, recommend further evaluation with nuclear medicine tagged red blood cell study. 2. Chronic findings, as above. ? THIS DOCUMENT HAS BEEN ELECTRONICALLY SIGNED BY POLI MANZO MD on 12/15/2023 01:46 PM ?? Signed By: Poli Manzo MD Lab Results CBC and Differential?? LATEST RESULTS?? WBC?? 12/15/23 11:05?? 8.4?? RBC?? 12/15/23 11:05?? 5.27?? Hgb?? 12/15/23 11:05?? 13.2?? Hct?? 12/15/23 11:05?? 42.3?? MCV?? 12/15/23 11:05?? 80.3 ??Low?? MCH?? 12/15/23 11:05?? 25.1 ??Low?? MCHC?? 12/15/23 11:05?? 31.2 ??Low?? RDW-CV?? 12/15/23 11:05?? 17.2 ??High?? Platelets?? 12/15/23 11:05?? 338?? MPV?? 12/15/23 11:05?? 9.0?? Neutro Auto?? 12/15/23 11:05?? 60.1?? Lymph Auto?? 12/15/23 11:05?? 28.2?? Weston Auto?? 12/15/23 11:05?? 7.9?? Eos, Auto?? 12/15/23 11:05?? 3.30 ??High?? Basophil Auto?? 12/15/23 11:05?? 0.5?? Neutro Absolute?? 12/15/23 11:05?? 5.1?? Lymph Absolute?? 12/15/23 11:05?? 2.4?? Weston Absolute?? 12/15/23 11:05?? 0.7 ??High?? Eos Absolute?? 12/15/23 11:05?? 0.3 ??High?? Baso Absolute?? 12/15/23 11:05?? 0.0?? RBC Morph?? 12/15/23 11:05?? Abnormal Abnormal?? Anisocyte?? 12/15/23 11:05?? 1+?? Hypochromia?? 12/15/23 11:05?? 1+ Abnormal?? Ovalocytes?? 12/15/23 11:05?? 1+ Abnormal?? Plt Estimation?? 12/15/23 11:05?? Normal?? Slide Review?? 12/15/23 11:05?? Morph Only? Coagulation?? LATEST RESULTS?? Prothrombin Time?? 12/15/23 11:05?? 9.9?? INR?? 12/15/23 11:05?? 1.0? Routine Chemistry?? LATEST RESULTS?? Sodium Level?? 12/15/23 11:05?? 138?? Potassium Level?? 12/15/23 11:05?? 3.2 ??Low?? Chloride Level?? 12/15/23 11:05?? 104?? CO2?? 12/15/23 11:05?? 29?? Alk Phos?? 12/15/23 11:05?? 108 ??High?? AST?? 12/15/23 11:05?? 17?? ALT?? 12/15/23 11:05?? 14?? BUN?? 12/15/23 11:05?? 8?? Glucose Level?? 12/15/23 11:05?? 97?? Creatinine Level?? 12/15/23 11:05?? 1.00?? BUN/Creat Ratio?? 12/15/23 11:05?? 8.0?? eGFR CKD-EPI?? 12/15/23 11:05?? 69?? Calcium Level?? 12/15/23 11:05?? 9.8?? Protein Total?? 12/15/23 11:05?? 7.9?? Albumin Level?? 12/15/23 11:05?? 4.6?? Globulin?? 12/15/23 11:05?? 3.3?? A/G Ratio?? 12/15/23 11:05?? 1.4?? Bilirubin Total?? 12/15/23 11:05?? 0.4?? Anion Gap?? 12/15/23 11:05?? 5.0?? Lactic Acid Lvl?? 12/15/23 11:05?? 0.9?? Lipase Level?? 12/15/23 11:05?? 78?? Osmolality?? 12/15/23 11:05?? 274 ??Low? UA Macroscopic?? LATEST RESULTS?? Urine Srce?? 12/15/23 11:05?? Clean Catch?? UA Color?? 12/15/23 11:05?? LIGHT YELL?? UA Appear?? 12/15/23 11:05?? Clear?? UA Glucose?? 12/15/23 11:05?? >=1000?? UA Bili?? 12/15/23 11:05?? Negative?? UA Ketones?? 12/15/23 11:05?? Negative?? UA Spec Grav?? 12/15/23 11:05?? 1.015?? UA Blood?? 12/15/23 11:05?? Negative?? UA pH?? 12/15/23 11:05?? 5.50?? UA Protein?? 12/15/23 11:05?? Negative?? UA Urobilinogen?? 12/15/23 11:05?? 0.2?? UA Nitrite?? 12/15/23 11:05?? Negative?? UA Leuk Est?? 12/15/23 11:05?? Negative? Electronically Signed on 12/15/2023 20:17 EDT [facility] department Discharge instructions * [facility]: PERFORM Event Display: ED Discharge Information Authored Date: [id number] ARTHUR PHELPS :1975 Age:48 years Sex:Female Visit Date:12/15/2023 Primary Care Physician: BELTRAN JHAVERI APRN Discharge Instructions We would like to thank you for allowing us to assist you with your healthcare needs. The following includes patient education materials and information regarding your injury/illness. Diagnosis from Today's Visit Gastritis Discharge Vitals Temperature??(Temporal Artery) 96.8 ??F (36 ??C) Heart Rate??(Peripheral) 78 Respiratory Rate?? 18 Blood Pressure?? 101/59?? SpO2?? 99% Height?? 63.78 in (162 cm) Weight?? 185.22 lb (84 kg) BMI?? 32.01 Allergies Venom??(Anaphylactic reaction) sulfa drugs??(Hives) What to Do Next Instructions from Your Care Team You may increase your??PPI to twice daily 40 mg Continue all other medications You Need to Schedule the Following Appointments Follow Up with??Travis Lentz MD When:??Within 1 to 2 weeks Why: Follow-up??to see if they want to have you??in for endoscopic evaluation prior to??your scheduled April appointment Where: [address] [place] [id number]- Follow Up with??Follow-up with your primary care When:??Within 1 week Why: Follow-up with your primary care as needed, they will be able to reevaluate if necessary Return to ED if concerns You were treated today on an emergency basis; it may be valenzuela to contact your primary care provider to notify them of your visit today. You may have been referred to your regular doctor or a specialist, please follow up as instructed. If your condition worsens or you can't get in to see the doctor, contact the Emergency Department. Medications What How Much When Instructions Next Dose Unchanged buPROPion (buPROPion 150 mg/ 24 hours (XL) oraltablet, extended release) 1 tab Oral (given by mouth) Every 24 hours Unchanged canagliflozin (Invokana 100 mg oral tablet) TAKE ONE TABLET BY MOUTH EVERY DAY ?? Unchanged cetirizine (cetirizine 10 mg oral tablet) 1 tab Oral (given by mouth) Every day Unchanged EPINEPHrine (EPINEPHrine 0.3 mg injectable kit) 0.3 Milligrams Subcutaneous (under the skin) Once Unchanged escitalopram (escitalopram 20 mg oral tablet) TAKE ONE TABLET BY MOUTH EVERY DAY ?? Unchanged esomeprazole (esomeprazole 40 mg oral delayed release capsule) 1 Capsules Oral (given by mouth) Every day Unchanged famotidine (famotidine 20 mg oral tablet) TAKE TWO TABLETS BY MOUTH AT BEDTIME ?? Unchanged fluticasone-salmeterol (Advair HFA 230 mcg-21 mcg/ inh inhalation aerosol) 2 Puffs Inhale (breathe in) 2 times a day Unchanged levalbuterol (levalbuterol 0.63 mg/ 3 mL inhalation solution) 3 Milliliters Nebulized inhalation (inhale using nebulizer) 3 times a day Unchanged linaclotide (Linzess 72 mcg oral capsule) 1 Capsules Oral (given by mouth) Every day do not crush or chew Taking 29mcg now ?? Unchanged lithium (lithium 300 mg oral tablet, extended release) 1 tab Oral (given by mouth) Every day Unchanged loperamide (loperamide 2 mg oral capsule) TAKE TWO CAPSULES BY MOUTH ONCE FOR 1 DOSE; THEN TAKE ONE CAPSULE BY MOUTH AFTER EACH LOOSE STOOL +MAX 8 PER DAY+ ?? Unchanged meclizine (meclizine 25 mg oral tablet) 1 tab Oral (given by mouth) Every day Unchanged metFORMIN (metFORMIN 500 mg oral tablet) 1 tab Every day Unchanged midodrine (midodrine 2.5 mg oral tablet) 2 tab Oral (given by mouth) 3 times a day Unchanged midodrine (midodrine 2.5 mg oral tablet) 2 tab 3 times a day Unchanged ondansetron (ondansetron 4 mg oral tablet) 1 tab Oral (given by mouth) Once Unchanged Other Prescription (D3 CAP 2000UNIT) Unchanged Other Prescription (ONETOUCH DEL MIS PLUS 30G) Unchanged potassium chloride (Potassium Chloride (Eqv-K-Tab) 20 mEq oral tablet, extended release) TAKE 1 TABLET BY MOUTH ONCE DAILY ?? Unchanged QUEtiapine (QUEtiapine 300 mg oral tablet) 1 tab Oral (given by mouth) 2 times a day Unchanged tiotropium (Spiriva Respimat 10 ACT 2.5 mcg/ inh inhalation aerosol) 2 Puffs Inhale (breathe in) Every day Education Materials Gastritis, Adult Gastritis is inflammation of the stomach. There are two kinds of gastritis: ? Acute gastritis. This kind develops suddenly. ? Chronic gastritis. This kind is much more common. It develops slowly and lasts for a long time. Gastritis happens when the lining of the stomach becomes weak or gets damaged. Without treatment, gastritis can lead to stomach bleeding and ulcers. What are the causes? This condition may be caused by: ? An infection. ? Drinking too much alcohol. ? Certain medicines. These include steroids, antibiotics, and some gdso-ltd-ljufzyk medicines, such as aspirin or ibuprofen. ? Having too much acid in the stomach. ? Having a disease of the stomach. Other causes may include: ? An allergic reaction. ? Some cancer treatments (radiation). ? Smoking cigarettes or the use of products that contain nicotine or tobacco. In some cases, the cause of this condition is not known. What increases the risk? Having a disease of the intestines. ? Having a disease in which the body's immune system attacks the body (autoimmune disease), such as Crohn's disease. ? Using aspirin or ibuprofen and other NSAIDs to treat other conditions, such as heart disease or chronic pain. ? Stress. What are the signs or symptoms? Symptoms of this condition include: ? Pain or a burning sensation in the upper abdomen. ? Nausea. ? Vomiting. ? An uncomfortable feeling of fullness after eating. ? Weight loss. ? Bad breath. ? Blood in your vomit or stool (feces). In some cases, there are no symptoms. How is this diagnosed? This condition may be diagnosed based on your medical history, a physical exam, and tests. Tests may include: ? Your medical history and a description of your symptoms. ? A physical exam. ? Tests. These can include: ? Blood tests. ? Stool tests. ? A test in which a thin, flexible instrument with a light and a camera is passed down the esophagus and into the stomach (upper endoscopy). ? A test in which a tissue sample is removed to look at it under a microscope (biopsy). How is this treated? This condition may be treated with medicines. The medicines that are used vary depending on the cause of the gastritis. ? If the condition is caused by a bacterial infection, you may be given antibiotic medicines. ? If the condition is caused by too much acid in the stomach, you may be given medicines called H2 blockers, proton pump inhibitors, or antacids. Treatment may also involve stopping the use of certain medicines such as aspirin or ibuprofen and other NSAIDs. Follow these instructions at home: Medicines ? Take dbln-rrs-xgfvpkr and prescription medicines only as told by your health care provider. ? If you were prescribed an antibiotic medicine, take it as told by your health care provider. Do notstop taking the antibiotic even if you start to feel better. Alcohol use ? Do not drink alcohol if: ? Your health care provider tells you not to drink. ? You are , may be , or are planning to become . ? If you drink alcohol: ? Limit your use to: ? 0???1 drink a day for women. ? 0???2 drinks a day for men. ? Know how much alcohol is in your drink. In the [place] one drink equals one 12 oz bottle of beer (355mL), one 5 oz glass of wine (148 mL), or one 1?? oz glass of hard liquor (44 mL). General instructions ? Eat small, frequent meals instead of large meals. ? Avoid foods and drinks that make your symptoms worse. ? Talk with your health care provider about ways to manage stress, such as getting regular exercise or practicing deep breathing, meditation, or yoga. ? Do not use any products that contain nicotine or tobacco. These products include cigarettes, chewing tobacco, and vaping devices, such as e-cigarettes. If you need help quitting, ask your health careprovider. ? Drink enough fluid to keep your urine pale yellow. ? Keep all follow-up visits. This is important. Contact a health care provider if: ? Your symptoms get worse. ? Your abdominal pain gets worse. ? Your symptoms return after treatment. ? You have a fever. Get help right away if: ? You vomit blood or a substance that looks like coffee grounds. ? You have black or dark red stools. ? You are unable to keep fluids down. These symptoms may represent a serious problem that is an emergency. Do not wait to see if the symptoms will go away. Get medical help right away. Call your local emergency services (911 in the [place] Do not drive yourself to the hospital. Summary ? Gastritis is inflammation of the lining of the stomach that can occur suddenly (acute) or develop slowly over time (chronic). ? This condition is diagnosed with a medical history, a physical exam, or tests. ? This condition may be treated with medicines to treat infection or medicines to reduce the amount of acid in your stomach. ? Follow your health care provider's instructions about taking medicines, making changes to your diet, and knowing when to call for help. This information is not intended to replace advice given to you by your health care provider. Make sure you discuss any questions you have with your health care provider. Document Revised: 07/23/2021 Document Reviewed: 07/23/2021 Elsevier Patient Education ?? 2022 [employer] Tests Performed Radiology CT Angio Abdomen and Pelvis 12/15/2023 13:46 EDT Medications and Immunizations Administered Given Protonix, 40 mg, IV Push Lab Test Name Test Result Date/Time WBC 8.4 K/mcL 12/15/2023 11:05 EDT RBC 5.27 Million/mcL 12/15/2023 11:05 EDT Hgb 13.2 g/dL 12/15/2023 11:05 EDT Hct 42.3 % 12/15/2023 11:05 EDT MCV 80.3 fL 12/15/2023 11:05 EDT MCH 25.1 pg 12/15/2023 11:05 EDT MCHC 31.2 g/dL 12/15/2023 11:05 EDT RDW-CV 17.2 % 12/15/2023 11:05 EDT Platelets 338 K/mcL 12/15/2023 11:05 EDT MPV 9.0 fL 12/15/2023 11:05 EDT Neutro Auto 60.1 % 12/15/2023 11:05 EDT Lymph Auto 28.2 % 12/15/2023 11:05 EDT Weston Auto 7.9 % 12/15/2023 11:05 EDT Eos, Auto 3.30 % 12/15/2023 11:05 EDT Basophil Auto 0.5 % 12/15/2023 11:05 EDT Neutro Absolute 5.1 K/mcL 12/15/2023 11:05 EDT Lymph Absolute 2.4 K/mcL 12/15/2023 11:05 EDT Weston Absolute 0.7 K/mcL 12/15/2023 11:05 EDT Eos Absolute 0.3 K/mcL 12/15/2023 11:05 EDT Baso Absolute 0.0 K/mcL 12/15/2023 11:05 EDT RBC Morph Abnormal 12/15/2023 11:05 EDT Anisocyte 1+ 12/15/2023 11:05 EDT Hypochromia 1+ 12/15/2023 11:05 EDT Ovalocytes 1+ 12/15/2023 11:05 EDT Plt Estimation Normal 12/15/2023 11:05 EDT Slide Review Morph Only 12/15/2023 11:05 EDT Prothrombin Time 9.9 seconds 12/15/2023 11:05 EDT INR 1.0 12/15/2023 11:05 EDT Sodium Level 138 mmol/L 12/15/2023 11:05 EDT Potassium Level 3.2 mmol/L 12/15/2023 11:05 EDT Chloride Level 104 mmol/L 12/15/2023 11:05 EDT CO2 29 mmol/L 12/15/2023 11:05 EDT Alk Phos 108 IntlUnit/L 12/15/2023 11:05 EDT AST 17 IntlUnit/L 12/15/2023 11:05 EDT ALT 14 IntlUnit/L 12/15/2023 11:05 EDT BUN 8 mg/dL 12/15/2023 11:05 EDT Glucose Level 97 mg/dL 12/15/2023 11:05 EDT Creatinine Level 1.00 mg/dL 12/15/2023 11:05 EDT BUN/Creat Ratio 8.0 12/15/2023 11:05 EDT eGFR CKD-EPI 69 mL/min/1.73 m2 12/15/2023 11:05 EDT Calcium Level 9.8 mg/dL 12/15/2023 11:05 EDT Protein Total 7.9 g/dL 12/15/2023 11:05 EDT Albumin Level 4.6 g/dL 12/15/2023 11:05 EDT Globulin 3.3 g/dL 12/15/2023 11:05 EDT A/G Ratio 1.4 g/dL 12/15/2023 11:05 EDT Bilirubin Total 0.4 mg/dL 12/15/2023 11:05 EDT Anion Gap 5.0 12/15/2023 11:05 EDT Lactic Acid Lvl 0.9 mmol/L 12/15/2023 11:05 EDT Lipase Level 78 unit/L 12/15/2023 11:05 EDT Osmolality 274 mOsm/kg 12/15/2023 11:05 EDT Urine Srce Clean Catch 12/15/2023 11:05 EDT UA Color LIGHT YELL 12/15/2023 11:05 EDT UA Appear CLEAR. 12/15/2023 11:05 EDT UA Glucose >=1000 12/15/2023 11:05 EDT UA Bili NEGATIVE 12/15/2023 11:05 EDT UA Ketones NEGATIVE 12/15/2023 11:05 EDT UA Spec Grav 1.015 12/15/2023 11:05 EDT UA Blood NEGATIVE 12/15/2023 11:05 EDT UA pH 5.50 12/15/2023 11:05 EDT UA Protein NEGATIVE 12/15/2023 11:05 EDT UA Urobilinogen 0.2 12/15/2023 11:05 EDT UA Nitrite NEGATIVE 12/15/2023 11:05 EDT UA Leuk Est NEGATIVE 12/15/2023 11:05 EDT Patient/Wool Broker Signature Patient Name:ARTHUR PHELPS I have received this information and my questions have been answered. Patient/Wool Broker Name: Patient/Wool Broker Signature: Relationship to Patient: Witness Name/Signature: Date: Electronically Signed on: 12/15/2023 14:12 EDTSigned by: Patient Care team information Care Team Personnel Name: BELTRAN JHAVERI APRN Position: No Access Member Role: Primary Care Physician [address]: [address] [facility] [place] [address]- Insurance Providers Guarantor name: ARTHUR PHELPS Health Plan Information #: 1 Payer: [facility] [employer] Member Number: [id number] Policy Number: NA Health Plan Information #: 2 Payer: [id number] Member Number: [id number] Policy Number: NA
--- OUTSIDE RECORDS SUMMARY | 2023-12-18 15:07 | XMS_ITS | Encounter Summary ---
Author Organization [facility] [place] [address] Care Team Providers Care Online Publisher Name Role Phone Gertrudis Li PABLO Primary Care Provider [phone] Reason for Referral * Surgical (Routine) - Authorized Specialty Diagnoses / Procedures Referred By Jo perry Referred To Contact Gastroenterology Diagnoses Heartburn ESOPHAGEAL [place] [address] [place] [address] [address] [place] [address] [facility] Endoscopy [address] [place] [address] Referral ID Status Reason Start Date Expiration Date Visits Requested Visits Authorized [id number] Authorized Test Only PCP Updated and/or Approved 10/15/2023 10/14/2024 1 1 Encounter Details Date Type Department Care Team (Late st Contact Info) Description 10/15/2023 Transcribe Orders eDH Incoming Referrals [phone] [place] [address] [place] [address] [address] [place], [place] [id number] Heartburn Social History Tobacco Use Types Packs/Day Years Used Date Smoking Tobacco: Never Assessed Sex and Gender Information Value Date Recorded Sex Assigned at Not on file Gender Identity Not on file Sexual Orientation Not on file documented as of this encounter Plan of Treatment Upcoming Encounters Date Type Department Care Team (Late st Contact Info) Description 01/13/2024 11:00 AM EDT Hospital Encounter [place] [address] Arrived Scheduled Referrals Name Type Priority Associated Diagnoses Orde r Schedule REFERRAL TO ENDOSCOPY PROCEDURE Outpatient Referral Routine Heartburn Ordered: 10/15/2023 documented as of this encounter Visit Diagnoses Diagnosis Heartburn documented in this encounter Care Teams Online Publisher Relationship Specialty Start Date End Date Gertrudis Li, DIESEL [place]IN[place] [address] [place] [address] PCP - General Family Medicine 05/24/23 documented as of this encounter
--- OUTSIDE RECORDS SUMMARY | 2023-12-18 15:07 | XMS_ITS | Encounter Summary ---
[place] [address] Care Team Providers Care Automatic Screwmaker Name Role Phone Gertrudis Li APRN Primary Care Provider [phone] Encounter Details Date Type Department Care Team (Late st Contact Info) Description 12/11/2023 Abstract Cardiology at [address] [address] Ashleigh Aviles RN Social History Tobacco Use Types Packs/Day Years [...] AM EDT Hospital Encounter Non-[place] [address] Arrived documented as of this encounter Visit Diagnoses Not on filedocumented in this encounter Care Teams Automatic Screwmaker Relationship Specialty Start Date End Date Gertrudis [place] [address] [address] [place] [address] PCP - General Family Medicine 05/24/23 documented as of this encounter
--- OUTSIDE RECORDS SUMMARY | 2023-12-18 15:07 | XMS_ITS | Encounter Summary ---
[place] [address] Care Team Providers Care Christmas Bell Ringer Name Role Phone Gertrudis Li APRN Primary Care Provider [phone] Encounter Details Date Type Department Care Team (Late st Contact Info) Description 05/17/2005 [place] [address] Chadwick Epps MD [place], [place] Social History Tobacco Use Types Packs/Day [...] AM EDT Hospital Encounter Non[place] [address] Arrived documented as of this encounter Procedures Procedure Name Priority Date/Time Associated Diagnosis Comments SURGICAL PATHOLOGY REPORT Routine 05/17/2005 8:54 PM EST documented in this encounter Results * Surgical Pathology Report (05/17/2005 8:54 PM EST) Surgical Pathology Report [id number] ? Location: The signing pathologist has (i) [...] report in rendering the final pathologic diagnosis. [facility] 05/17/2005 8:54 PM EST Chadwick Epps MD PATHOLOGY/CYTOLOGY O [place] Performing Organization Address City/State/[facility] Co de Phone Number [facility] documented in this encounter Visit Diagnoses Not on filedocumented in this encounter Care Teams Christmas Bell Ringer Relationship Specialty Start Date End Date Gertrudis Li, BOOKBINDER CHIEF [address] [place] [address] PCP - General Family Medicine 05/24/23 documented as of this encounter
--- OUTSIDE RECORDS SUMMARY | 2023-12-18 15:07 | XMS_ITS | Encounter Summary ---
[place] [address] Care Team Providers Care Metal Cutter Name Role Phone Travis Maya PABLO Primary Care Provider [phone] Encounter Details Date Type Department Care Team (Late st Contact Info) Description 05/05/2023 Interpretation Only [address] [id number] Jean Carlos Gallegos MD [address] [address] Social History Tobacco Use Types Packs/Day Years [...] AM EDT Hospital Encounter Non-Invasive [place] [address] Arrived documented as of this encounter Procedures Procedure Name Priority Date/Time Associated Diagnosis Comments XR CHEST ONE VIEW STAT 05/05/2023 6:3 8 PM EST documented in this encounter Results * XR Chest One View (05/05/2023 6:38 PM EST) PT CLASS E DH RAD ADMITDTTM [id number] DH RAD PT RAD INFO [id number]^El ^Jean Carlos^Abdon RAD EXAM DESC XCXR1^XR Chest [...] who have questions please contact the health adult care provider that requested your imaging first. ? Narrative 05/05/2023 6:42 PM EST EXAMINATION: XR [...] patients who have questions please contactthe health adult care provider that requested your imaging first. Jean Carlos Gallegos MD IMG DX ORDERABL ES documented in this encounter Visit Diagnoses Not on filedocumented in this encounter Care Teams Metal Cutter Relationship Specialty Start Date End Date Travis Maya, PABLO [address] [place] [address] PCP - General 02/22/10 05/23/23 documented as of this encounter
--- OUTSIDE RECORDS SUMMARY | 2023-12-18 15:07 | XMS_ITS | Encounter Summary ---
Author Organization [facility] [place] [address] Care Team Providers Care Dot Compliance Coordinator Name Role Phone Gertrudis Li APRN Primary Care Provider [phone] Reason for Visit * Reason Comments Syncope and Collapse Encounter Details Date Type Department Care Team (Late st Contact Info) Description 12/12/2023 11:00 AM EDT Office Visit Cardiology at [address] [place] [address] Austin Loredo MD [facility] [place] [address] Syncope and collapse Social History Tobacco Use Types Packs/Day Years Used Date Smoking Tobacco: Former Cigarettes Q uit: 1990 Smokeless Tobacco: Never Tobacco Cessation:Counseling Given: Not Answered Sex and Gender Information Value Date Recorded Sex Assigned at Not on file Gender Identity Not on file Sexual Orientation Not on file documented as of this encounter Last Filed Vital Signs Vital Sign Reading Time Taken Comments Blood Pressure 126/86 12/12/2023 11:27 AM EDT Pulse 68 12/12/2023 11:27 AM EDT Temperature - - Respiratory Rate - - Oxygen Saturation - - Inhaled Oxygen Concentration - - Weight 83.9 kg (185 lb) 12/12/2023 11:27 AM EDT Height 162.6 cm (5' 4) 12/12/2023 11:27 AM EDT Body Mass Index 31.76 12/12/2023 11:27 AM EDT documented in this encounter Progress Notes * Austin Loredo MD - 12/12/2023 11:00 AM EDT Images from the original note were not included. Clinical Cardiac Electrophysiology Follow Up Patient ID Janessa Covarrubias 1975 [id number] Janessa Covarrubias is referred to the EP clinic by Gertrudis Li APRN Chief Complaint ILR H/o Syncope History This is a 48 y.o. female following up/being seen in clinic for ILR evaluation/prior history of syncope - episodes that have happened since 2019. Her LINQ was implanted 05/2020. She has previously been[facility] at [facility] She has a past medical history that is significant for DM 2, asthma, GERD, bipolar disorder, syncope, IBS, and syncope. In 2022 - she was on midodrine 2.5 mg three times daily - she still takes this medication She is a current smoker. The episodes of syncope occur often from a seated position. For example, yesterday she fell over backwards onto a chair when she stood from a seated position. She develops dizziness frequently. - several times per week. The episodes of tunnel vision occur a few times per week. She drinks about a gallon per day; salty snacks. Has not used compression hosiery With regards to her episodes of syncope - LVEF: 01/2022 - 52% no wall motion abnormalities, LA normal - Ischemia Eval: None Ambulatory monitor: None recent - ILR Anticoagulated: No Antiarrhythmics: No Sleep apnea: Problem List Patient Active Problem List Diagnosis Dissociative convulsions Type 2 diabetes mellitus Syncope and collapse Shortness of breath Pacemaker Implanted loop recorder - previously followed by cardiology in [place], [place] Orthostatic hypotension Nail dystrophy Major depressive disorder, recurrent IBS (irritable bowel syndrome) Heart palpitations Gastroparesis Gastroesophageal reflux disease Calculus of gallbladder with chronic cholecystitis without obstruction Benign paroxysmal positional vertigo Asthma Alcohol use with intoxication with complication Former cigarette smoker Quit 2021 Daily urinary incontinence Bipolar affective disorder in remission Mild intermittent asthma, uncomplicated Review of Systems Review of Systems Constitutional: Negative for weight gain and weight loss. Cardiovascular: Negative for irregular heartbeat. Neurological: Positive for loss of balance. Meds Current Outpatient Medications Medication Sig Dispense Refill fluticasone propionate-salmeteroL (Advair HFA) 230-21 mcg/actuation inhaler (HFA) Inhale 2 puffs into the lungs 2 times daily. albuteroL 90 mcg/actuation inhaler (HFA) Inhale 2 puffs into the lungs every 6 hours as needed for Wheezing. Use with Spacer cetirizine (ZyrTEC) 10 mg tablet Take 10 mg by mouth daily. cholecalciferoL, Vitamin D3, (Vitamin D3) 50 mcg (2,000 unit) tablet Take 2,000 Units by mouth daily. clonazePAM (KlonoPIN) 0.5 mg tablet Take 0.5 mg by mouth daily as needed for Anxiety. escitalopram (Lexapro) 20 mg tablet Take 20 mg by mouth daily. famotidine (Pepcid) 20 mg tablet Take 20 mg by mouth 2 times daily. canagliflozin (Invokana) 100 mg tablet Take 100 mg by mouth daily. SITagliptin phosphate (Januvia) 50 mg tablet Take 50 mg by mouth daily. potassium chloride (KLOR-CON) 20 mEq Packet Take 20 mEq by mouth daily. linaCLOtide (Linzess) 72 mcg capsule Take 72 mcg by mouth daily. lithium 300 mg capsule Take 300 mg by mouth nightly. loperamide (Imodium A-D) 2 mg capsule Take 4 mg by mouth as needed for Diarrhea. midodrine (Proamatine) 2.5 mg tablet Take 2.5 mg by mouth 3 times daily. QUEtiapine (Seroquel) 300 mg tablet Take 300 mg by mouth daily. tiotropium (Spiriva Respimat) 1.25 mcg/actuation inhaler Inhale 2 puffs into the lungs daily. SUMAtriptan (Imitrex) 50 mg tablet Take 50 mg by mouth as needed for Migraine. Initial dose: 25 mg,50 mg, or 100 mg (take with fluids). May repeat dose after 2 hours. Max daily dose: 200 mg epiNEPHrine (EPIPEN) 0.3 mg/0.3 mL injection 0.3MG/0.3ML, IM, as directed No current facility-administered medications for this visit. Social History Social History Socioeconomic History Marital status: Spouse name: None Number of children: None Years of education: None Highest education level: None Occupational History None Tobacco Use Smoking status: Former Current packs/day: 0.00 Types: Cigarettes Quit date: 1990 Years since quittin.7 Smokeless tobacco: Never Vaping Use Vaping status: Every Day Substances: Flavoring Devices: Pre-filled or refillable cartridge Substance and Sexual Activity Alcohol use: None Drug use: None Sexual activity: None Other Topics Concern None Social History Narrative None Social Determinants of Health Financial Resource Strain: Not on file Food Insecurity: Not on file Transportation Needs: Not on file Physical Activity: Not on file Intimate Partner Violence: Not on file Housing Stability: Not on file Family History No family history on file. Exam No data found. Physical Exam Constitutional: Comments: Body mass index is 31.76 kg/m??. Cardiovascular: Rate and Rhythm: Normal rate and regular rhythm. Pulmonary: Effort: Pulmonary effort is normal. Skin: General: Skin is warm. Neurological: Mental Status: She is alert. The tablet ibm mainframe systems programmer was unable to make a connection to the implantable loop recorder Impression Janessa Covarrubias is seen in the EP clinic for follow up of her ILR that was implanted for syncope in 2020. She has previously been followed by [place] [facility]. 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 She has never been trialed on fludrocortisone as far as I can tell. Her implantable loop recorder data is currently being [facility] to [facility], I asked her whether she would like me to request transfer of this day to to the [facility] and device clinic, she said yes. Will review the data, at least based on her history does not seem as if there is a compelling indication for consideration of pacemaker. Her implantable loop recorder was placed in 2020, it is likelynearing the end of longevity, she may need to simply have this removed once the battery is depleted. I will arrange follow-up for her in about 3 months time, she knows to reach out for questions or concerns. Recommendations / Plan A) No changes to current medications B) She can consider compression hose C) Possibility to consider low-dose fludrocortisone if necessary D) I will arrange for transfer of her implantable loop recorder data for remote monitoring to Device clinic E) She may prefer to have follow-up as at [facility] as this is closer. AUSTIN LOREDO MD Cardiac Electrophysiology [facility] [place] 40 minutes were spent preparing to see the patient (e.g. review of tests), obtaining and/or reviewing separately obtained history, performing a medically appropriate examination and/or evaluation, counseling and educating the patient, ordering medications, tests, or procedures, documenting clinicalinformation in the electronic medical record, Independently interpreting results Cc: Gertrudis Li APRN documented in this encounter Plan of Treatment Upcoming Encounters Date Type Department Care Team (Late st Contact Info) Description 01/13/2024 11:00 AM EDT Hospital Encounter Non[place] [address] Arrived documented as of this encounter Visit Diagnoses Diagnosis Syncope and collapse documented in this encounter Care Teams Dot Compliance Coordinator Relationship Specialty Start Date End Date Gertrudis [place] [address] PCP - General Family Medicine 05/24/23 documented as of this encounter
--- OUTSIDE RECORDS SUMMARY | 2023-12-18 15:07 | XMS_ITS | Encounter Summary ---
Author Organization [facility] [place] [address] Care Team Providers Care Analyst Name Role Phone Gertrudis Li APRN Primary Care Provider [phone] Reason for Referral * Consultation (Routine) - Closed Specialty Diagnoses / Procedures Referred By Contact Referred To Contact Electrophysiology / Cardiology Diagnoses Personal history of other diseases of circulatory system Syncopal episode Sat, [facility] h/o syncope & collapse over the yrs, loop recorder in place. ?POTS syndrome. Previously followed in [facility] Gertrudis Li APRN [address] [place] [address] [facility] [address] [place] [phone] Referral ID Status Reason Start Date Expiration Date V isits Requested Visits Authorized [id number] Closed Consult, Test & Treat PCP Updated and/or Approved 05/21/2023 05/20/2024 6 6 Encounter Details Date Type Department Care Team (Latest Contact Info) Description 05/24/2023 Transcribe Orders eD Incoming Referrals [phone] Gertrudis Li APRN [address] [place], [place] [id number] Personal history of other diseases of circulatory [...] AM EDT Hospital Encounter Non[place] [address] Arrived Scheduled Referrals Name Type Priority Associated Diagnoses Order Schedule Referral to Cardiac Electrophysiology Outpatient Referral Routine Personal history of other diseases of circulatory system Ordered: 05/24/2023 documented as of this encounter Visit Diagnoses Diagnosis Personal history of other diseases of circulatory system documented in this encounter Care Teams Analyst Relationship Specialty Start Date End Date Gertrudis Li, DIRECTOR OF CATERING SALES [place] [address] PCP - General Family Medicine 05/24/23 documented as of this encounter
--- OUTSIDE RECORDS SUMMARY | 2023-12-18 15:07 | XMS_ITS | Encounter Summary ---
[place] [address] Care Team Providers Care Turret Lathe Machinist Name Role Phone Gertrudis Li PABLO Primary Care Provider [phone] Reason for Visit * Reason Onset Date Comments Referral 09/19/2023 Syncope and Collapse 09/19/2023 Encounter Details Date Type Department Care Team (Late st Contact Info) Description 09/19/2023 Telephone Cardiology at [address] [place] [address] [phone] Griselda Houser, card hand; Syncope and Collapse Social History Tobacco Use [...] were not included. Heart and Vascular Clinics [facility] [address] [place] [phone] ----- Message from Susie Bales sent at 09/19/2023 2:42 PM EDT ----- Referral and Office Note scanned and indexed. Janessa is referred to this Cardiology clinic in [place]. She has an implanted loop recorder. Details of product not included with the referral. She previously with a magazine keeper in [place], [place]. With phone call to Janessa, determined per her history that the device is a Medtronic product that was implanted by Dr. Crowe in 2020 at [facility]. Medical records need to be requested from [facility]: Most recent device transmission Procedure report ILR and product information for Medtronic device Most recent office visit note with Dr. Crowe [facility] & P Most recent echocardiogram, EKG, and stress testing Plan: Schedule Janessa for an appointment with Dr. Loredo or Dr. Call at this [facility]. documented in this encounter Plan of Treatment Upcoming Encounters Date Type Department Care Team (Late st Contact Info) Description 01/13/2024 11:00 AM EDT Hospital Encounter Non-Invasive [place] [address] Arrived documented as of this encounter Visit Diagnoses Not on filedocumented in this encounter Care Teams Turret Lathe Machinist Relationship Specialty Start Date End Date Gertrudis Li, [place] [address] [place] [address] PCP - General Family Medicine 05/24/23 documented as of this encounter
--- OUTSIDE RECORDS SUMMARY | 2023-12-18 15:07 | XMS_ITS | Clinical Summary ---
Author Organization [facility] Address [facility] [place] [address] Care Team Providers Care Marketing Financial Analyst Name Role Phone Gertrudis Li APRN Primary Care Provider [phone] Allergies Active Allergy Reactions Criticality Noted Date Comments Sulfa (Sulfonamide Antibiotics) Hives Low 12/01 Venom-Honey Bee Anaphylaxis High 09/19/2023 Medications Medication Sig Dispensed Refills Start Date End Date Status epiNEPHrine (EPIPEN) 0.3 mg/0.3 mL injection 0.3MG/0.3ML, IM, as directed 07/14/2005 Active fluticasone propionate-salmeteroL (Advair HFA) 230-21 mcg/actuation inhaler (HFA) Inhale 2 puffs into the lungs 2 times daily. Active albuteroL 90 mcg/actuation inhaler (HFA) Inhale 2 puffs into the lungs every 6 hours as needed for Wheezing. Use with Spacer Active cetirizine (ZyrTEC) 10 mg tablet Take 10 mg by mouth daily. Active cholecalciferoL, Vitamin D3, (Vitamin D3) 50 mcg (2,000 unit) tablet Take 2,000 Units by mouth daily. Active clonazePAM (KlonoPIN) 0.5 mg tablet Take 0.5 mg by mouth daily as needed for Anxiety. Active escitalopram (Lexapro) 20 mg tablet Take 20 mg by mouth daily. Active famotidine (Pepcid) 20 mg tablet Take 20 mg by mouth 2 times daily. Active canagliflozin (Invokana) 100 mg tablet Take 100 mg by mouth daily. Active SITagliptin phosphate (Januvia) 50 mg tablet Take 50 mg by mouth daily. Active potassium chloride (KLOR-CON) 20 mEq Packet Take 20 mEq by mouth daily. Active linaCLOtide (Linzess) 72 mcg capsule Take 72 mcg by mouth daily. Active lithium 300 mg capsule Take 300 mg by mouth nightly. Active loperamide (Imodium A-D) 2 mg capsule Take 4 mg by mouth as needed for Diarrhea. Active midodrine (Proamatine) 2.5 mg tablet Take 2.5 mg by mouth 3 times daily. Active QUEtiapine (Seroquel) 300 mg tablet Take 300 mg by mouth daily. Active tiotropium (Spiriva Respimat) 1.25 mcg/actuation inhaler Inhale 2 puffs into the lungs daily. Active SUMAtriptan (Imitrex) 50 mg tablet Take 50 mg by mouth as needed for Migraine. Initial dose: 25 mg, 50 mg, or 100 mg (take with fluids). May repeat dose after 2 hours. Max daily dose: 200 mg Active Active Problems Problem Noted Date Diagnosed Date Implantable loop recorder present 12/14/2023 Dissociative convulsions 12/11/2023 Type 2 diabetes mellitus 09/19/2023 Syncope and collapse 09/19/2023 Shortness of breath 09/19/2023 Orthostatic hypotension 09/19/2023 Nail dystrophy 09/19/2023 Major depressive disorder, recurrent 09/19/2023 IBS (irritable bowel syndrome) 09/19/2023 Heart palpitations 09/19/2023 Gastroparesis 09/19/2023 Gastroesophageal reflux disease 09/19/2023 Calculus of gallbladder with chronic cholecystitis without obstruction 09/19/2023 Benign paroxysmal positional vertigo 09/19/2023 Asthma 09/19/2023 Alcohol use with intoxication with complication 09/19/2023 Former cigarette smoker 09/19/2023 Overview (09/19/2023): Quit 2021 Daily urinary incontinence 09/19/2023 Bipolar affective disorder in remission 07/18/19 Mild intermittent asthma, uncomplicated 07/18/19 23 Resolved Problems Problem Noted Date Diagnosed Date Resolved Date Sternal pain 09/19/2023 09/19/2023 Serum lithium level below therapeutic range 09/19/2023 09/19/2023 S/P endometrial ablation 09/19/2023 History of hysterectomy 09/19/202308/314 Pruritic erythematous rash 09/19/2023 0 09/19/2023 Pre-syncope [...] 09/19/2023 09/19/2023 Gallstones without obstruction of gallbladder 09/19/19 24 09/19/2023 Elevated hemoglobin A1c measurement 09/19/2023 09/19/2023 Vertigo 09/19/2023 09/19/2023 Diarrhea 09/19/2023 09/19/2023 Bradycardia 09/19/2023 09/19/2023 Backache 09/19/2023 09/19/2023 Atypical chest pain 09/19/2023 09/19/19 24 TAMARA II (cervical intraepithe lial neoplasia II) 02/07/2016 09/19/2023 Tobacco use 10/15/2014 09/19/2023 Overview (09/19/2023): Quit 2021 Acne 04/21/2013 09/19/2023 Encounters Date Type Department Care Team Description 12/12/2023 11:00 AM EDT Office Visit Cardiology at [address] [phone] Austin Loredo MD Syncope and collapse 12/11/2023 Abstract Cardiology at [place] [address] [place] [address] Ashleigh Aviles RN 10/15/2023 Transcribe Orders eDH Incoming Referrals [phone] Eunice Erazo, DO Heartburn 09/19/2023 Abstract Cardiology at [address] [place] [address] Griselda Houser, RN Pacemaker; Tobacco use; Former cigarette smoker 09/19/2023 Telephone Cardiology at [address] [place] [address] Griselda Houser, telephone maintenance mechanic; Syncope and Collapse from Last 3 Months [...] on file Sexual Orientation Not on file Last Filed Vital Signs Vital Sign Reading [...] Mass Index 31.76 12/12/2023 11:27 AM EDT Plan of Treatment Upcoming Encounters Date Type Department Care Team (Late st Contact Info) Description 01/13/2024 11:00 AM EDT Hospital Encounter [place] [address] Arrived Health Maintenance Due Date Last Done Comments [...] vaccine 04/11/2015 04/11/2005 Covid-19 Vaccine ( season) 2023 03/15/2021, 09/14/2020, 08/17/2020 Influenza (Flu) vaccine (1 o f 1 - Influenza standard series) 12/02/2023 02/16/2005 Medical Devices Implanted Type Area Bank Messenger Device Identifier Shelf Expiration Date Model / Serial / Lot Implantable Loop Recorder-05/25 Implanted: (Quantity not on file) Implantable Loop Recorder [employer] [id number] / [id number] / Care Teams Marketing Financial Analyst Relationship Specialty Start Date End Date Gertrudis [place] [address] [place] [address] PCP - General Family Medicine 05/24/23
--- OUTSIDE RECORDS SUMMARY | 2023-12-18 15:07 | XMS_ITS | Encounter Summary ---
[place] [address] Care Team Providers Care Talent Acquisition Partner Name Role Phone Gertrudis Li APRN Primary Care Provider [phone] Encounter Details Date Type Department Care Team (Late st Contact Info) Description 09/19/2023 Abstract Cardiology at [address] [address] Griselda Houser, RN Pacemaker; Tobacco [...] AM EDT Hospital Encounter Non-[place] [address] Arrived documented as of this encounter Visit Diagnoses Diagnosis Pacemaker Cardiac pacemaker in situ Tobacco use Tobacco use disorder Former cigarette smoker Personal history of tobacco use, presenting hazards to health documented in this encounter Care Teams Talent Acquisition Partner Relationship Specialty Start Date End Date Gertrudis Li [place] [address] [place] [address] PCP - General Family Medicine 05/24/23 documented as of this encounter
--- OUTSIDE RECORDS SUMMARY | 2023-12-18 15:07 | XMS_ITS | Encounter Summary ---
[place] [address] Care Team Providers Care Supervisor Stave Cutting Name Role Phone Travis Maya PABLO Primary Care Provider [phone] Encounter Details Date Type Department Care Team (Late st Contact Info) Description 05/05/2023 Interpretation Only [address] [phone] Jean Carlos Gallegos MD [address] [address] Social History Tobacco Use Types Packs/Day Years [...] AM EDT Hospital Encounter Non[place] [address] Arrived documented as of this encounter Procedures Procedure Name Priority Date/Time Associated Diagnosis Comments CT HEAD WO CONTRAST (GENERIC) STAT 05/05/2023 6:53 PM EST documented in this encounter Results * CT Head wo Contrast (Generic) (05/05/2023 6:53 PM EST) PT CLASS E RAD ADMITDTTM [id number] RAD PT RAD INFO [id number]^El ^Jean Carlos^Abdon RAD EXAM DESC CTHEAD^CT Head w/o Contrast^RIS [...] who have questions please contact the health specialist wound care that requested your imaging first. ? Narrative 05/05/2023 7:01 PM EST EXAMINATION: CT [...] patients who have questions please contactthe health specialist wound care that requested your imaging first. Jean Carlos Gallegos MD IMG CT ORDERABL ES documented in this encounter Visit Diagnoses Not on filedocumented in this encounter Care Teams Supervisor Stave Cutting Relationship Specialty Start Date End Date Travis Maya, TERMINAL SUPERVISOR [address] [place] [address] PCP - General 02/22/10 05/23/23 documented as of this encounter
== END 2023-12-18 14:58 | disposition home or self-care (01) ==
LOC: NCHCN 14:57
PROVIDERS: PCP Nurse Practitioner Family; Visit Provider Nurse Practitioner Family
DX: N89.8 Other specified noninflammatory disorders of vagina (principal)
CPT/HCPCS: 87480; 87510; 87660

== ENCOUNTER 2023-12-26 22:41 | Emergency (ER) | payer MEDICARE, MEDICAID, SELFPAY ==
[2023-12-26 22:45] VITALS: BP 131/87; PULSE 82; RESP 16; TEMP 36.9; O2SAT 98
--- OUTSIDE RECORDS SUMMARY | 2023-12-26 22:52 | XMS_ITS | Encounter Summary ---
[place] [address] Care Team Providers Care Electric Tripper Machine Operator Name Role Phone Gertrudis Li APRN Primary Care Provider [phone] Encounter Details Date Type Department Care Team (Late st Contact Info) Description 09/19/2023 Abstract Cardiology at [address] [address] Griselda Houser, RN Pacemaker; Tobacco [...] AM EDT Hospital Encounter Non-[place] [address] Arrived documented as of this encounter Visit Diagnoses Diagnosis Pacemaker Cardiac pacemaker in situ Tobacco use Tobacco use disorder Former cigarette smoker Personal history of tobacco use, presenting hazards to health documented in this encounter Care Teams Electric Tripper Machine Operator Relationship Specialty Start Date End Date Gertrudis Li [place] [address] [place] [address] PCP - General Family Medicine 05/24/23 documented as of this encounter
--- OUTSIDE RECORDS SUMMARY | 2023-12-26 22:52 | XMS_ITS | Encounter Summary ---
[place] [address] Care Team Providers Care Quad Stayer Name Role Phone Travis Maya PABLO Primary Care Provider [phone] Encounter Details Date Type Department Care Team (Late st Contact Info) Description 05/05/2023 Interpretation Only [address] [phone] Jean Carlos Gallegos MD [address] [address] Social History Tobacco Use Types Packs/Day Years [...] AM EDT Hospital Encounter Non-[place] [address] Arrived documented as of this encounter Procedures Procedure Name Priority Date/Time Associated Diagnosis Comments CT HEAD WO CONTRAST (GENERIC) STAT 05/05/2023 6:53 PM EST documented in this encounter Results * CT Head wo Contrast (Generic) (05/05/2023 6:53 PM EST) PT CLASS E RAD ADMITDTTM [id number] RAD PT RAD INFO [id number]^El ^Jean Carlos^Abdon RAD EXAM DESC CTHEAD^CT Head [...] who have questions please contact the health medical care administrator that requested your imaging first. ? Narrative [...] patients who have questions please contactthe health medical care administrator that requested your imaging first. Jean Carlos Gallegos MD IMG CT ORDERABL ES documented in this encounter Visit Diagnoses Not on filedocumented in this encounter Care Teams Quad Stayer Relationship Specialty Start Date End Date Travis Maya, PROOF CLERK [address] [place] [address] PCP - General 02/22/10 05/23/23 documented as of this encounter
--- OUTSIDE RECORDS SUMMARY | 2023-12-26 22:52 | XMS_ITS | Encounter Summary ---
Author Organization [facility] [place] [address] Care Team Providers Care Scrap Metal Burner Name Role Phone Gertrudis Li PABLO Primary Care Provider Reason for Referral * Surgical (Routine) - Authorized Specialty Diagnoses / Procedures Referred By Jo perry Referred To Contact Gastroenterology Diagnoses Heartburn ESOPHAGEAL [place] [address] [place] [address] [address] [place] [address] [facility] Endoscopy [address] [place] [address] Referral ID Status Reason Start Date Expiration Date Visits Requested Visits Authorized [id number] Authorized Test Only PCP Updated and/or Approved 10/15/2023 10/14/2024 1 1 Encounter Details Date Type Department Care Team (Late st Contact Info) Description 10/15/2023 Transcribe Orders eDH Incoming Referrals [phone] [place] [address] [place] [address] [address] [place], [place] [id number] Heartburn Social History Tobacco Use Types Packs/Day [...] AM EDT Hospital Encounter Non[place] [address] Arrived Scheduled Referrals Name Type Priority Associated Diagnoses Orde r Schedule REFERRAL TO ENDOSCOPY PROCEDURE Outpatient Referral Routine Heartburn Ordered: 10/15/2023 documented as of this encounter Visit Diagnoses Diagnosis Heartburn documented in this encounter Care Teams Scrap Metal Burner Relationship Specialty Start Date End Date Gertrudis Li, ORE [place] [address] [place] [address] PCP - General Family Medicine 05/24/23 documented as of this encounter
--- OUTSIDE RECORDS SUMMARY | 2023-12-26 22:52 | XMS_ITS | Encounter Summary ---
[place] [address] Care Team Providers Care Die Reamer Name Role Phone Travis Maya PABLO Primary Care Provider [phone] Encounter Details Date Type Department Care Team (Late st Contact Info) Description 05/05/2023 Interpretation Only [address] [phone] Jaen Carlos Gallegos MD [address] [address] Social History Tobacco Use Types Packs/Day Years [...] AM EDT Hospital Encounter Non-[place] [address] Arrived documented as of this encounter Procedures Procedure Name Priority Date/Time Associated Diagnosis Comments XR CHEST ONE VIEW STAT 05/05/2023 6:3 8 PM EST documented in this encounter Results * XR Chest One View (05/05/2023 6:38 PM EST) PT CLASS E DH RAD ADMITDTTM [id number] DH RAD PT RAD INFO [id number]^El ^Jean Carlos^Abdon RAD EXAM DESC XCXR1^XR Chest [...] have questions please contact the health career resource technician that requested your imaging first. ? Narrative [...] who have questions please contactthe health career resource technician that requested your imaging first. Jean Carlos Gallegos MD IMG DX ORDERABL ES documented in this encounter Visit Diagnoses Not on filedocumented in this encounter Care Teams Die Reamer Relationship Specialty Start Date End Date Travis Maya, PABLO [address] [place] [address] PCP - General 02/22/10 05/23/23 documented as of this encounter
--- OUTSIDE RECORDS SUMMARY | 2023-12-26 22:52 | XMS_ITS | Encounter Summary ---
Author Organization [facility] [place] [address] Care Team Providers Care Hand Candle Dipper Name Role Phone Gertrudis Li APRN Primary Care Provider [phone] Reason for Referral * Consultation (Routine) - Closed Specialty Diagnoses / Procedures Referred By Contact Referred To Contact Electrophysiology / Cardiology Diagnoses Personal history of other diseases of circulatory system Syncopal episode [facility] syncope & collapse over the yrs, loop recorder in place. ?POTS syndrome. Previously followed in [facility] Gertrudis Li APRN [address] [place] [address] [facility] [address] [place] [phone] Referral ID Status Reason Start Date Expiration Date V isits Requested Visits Authorized [id number] Closed Consult, Test & Treat PCP Updated and/or Approved 05/21/2023 05/20/2024 6 6 Encounter Details Date Type Department Care Team (Latest Contact Info) Description 05/24/2023 Transcribe Orders eD Incoming Referrals [phone] Gertrudis Li APRN [address] [place], [place] [id number] Personal history of other diseases of circulatory [...] AM EDT Hospital Encounter Non-Invasive [place] [address] Arrived Scheduled Referrals Name Type Priority Associated Diagnoses Order Schedule Referral to Cardiac Electrophysiology Outpatient Referral Routine Personal history of other diseases of circulatory system Ordered: 05/24/2023 documented as of this encounter Visit Diagnoses Diagnosis Personal history of other diseases of circulatory system documented in this encounter Care Teams Hand Candle Dipper Relationship Specialty Start Date End Date Gertrudis Li, TELECOM ASSIST[place] [address] PCP - General Family Medicine 05/24/23 documented as of this encounter
--- OUTSIDE RECORDS SUMMARY | 2023-12-26 22:52 | XMS_ITS | Clinical Summary ---
Author Organization [facility] [place] [address] Care Team Providers Care Blacksmith Helper Name Role Phone Gertrudis Li APRN Primary Care Provider [phone] Allergies Active Allergy Reactions Criticality Noted Date [...] 11:00 AM EDT Office Visit Cardiology at [address] [phone] Austin Loredo MD Syncope and collapse 12/11/2023 Abstract Cardiology at [facility] [address] [place] [address] Ashleigh Aviles RN 10/15/2023 Transcribe Orders eDH Incoming Referrals [phone] Eunice Erazo, DO Heartburn from Last 3 Months Immunizations Name Administration [...] AM EDT Hospital Encounter Non-[place] [address] Arrived Health Maintenance Due Date [...] Hepatitis B vaccine (0-59 yrs) (1) 1993 HPV test 2004 PAP Smear 2004 Tetanus/Diphtheria/Pertussis Vaccines (1 - Tdap) 04/12/2005 04/11/2005 Breast Cancer Share Decision Needed 2014 Breast Cancer screening 2014 Covid-19 Vaccine ( season) 2023 03/15/2021, 09/14/2020, 08/17/2020 Influenza (Flu) vaccine (1 o f 1 - Influenza standard series) 12/02/2023 02/16/2005 Medical Devices Implanted Type Area Detective Investigator Device Identifier Shelf Expiration Date Model / Serial / Lot Implantable Loop Recorder-05/25 Implanted: (Quantity not on file) Implantable Loop Recorder Subcutaneous [employer] [id number] / [id number] / Care Teams Blacksmith Helper Relationship Specialty Start Date End Date Gertrudis Li, [place] [address] [place] [address] PCP - General Family Medicine 05/24/23
--- OUTSIDE RECORDS SUMMARY | 2023-12-26 22:52 | XMS_ITS | Encounter Summary ---
[place] [address] Care Team Providers Care Test Engineering Intern Name Role Phone Gertrudis Li PABLO Primary Care Provider [phone] Reason for Visit * Reason Onset Date Comments Referral 09/19/2023 Syncope and Collapse 09/19/2023 Encounter Details Date Type Department Care Team (Late st Contact Info) Description 09/19/2023 Telephone Cardiology at [address] [phone] Griselda Houser, customer consultant; Syncope and Collapse Social History Tobacco Use [...] were not included. Heart and Vascular Clinics [facility] [address] [place] [id number] ----- Message from Susie Bales sent at 09/19/2023 2:42 PM EDT ----- Referral and Office Note scanned and indexed. Janessa is referred to this Cardiology clinic in [place]. She has an implanted loop recorder. Details of product not included with the referral. She previously with a screen printer helper in [place], [place]. With phone call to Janessa, determined per her history that the device is a [employer] product that was implanted by Dr. Crowe in 2020 at [facility]. Medical records need to be requested from [facility]: Most recent device transmission Procedure report ILR and product information for [employer] device Most recent office visit note with Dr. Crowe H & P Most recent echocardiogram, EKG, and stress testing Plan: Schedule Janessa for an appointment with Dr. Loredo or Dr. Call at this [facility]. documented in this encounter Plan of Treatment Upcoming Encounters Date Type Department Care Team (Late st Contact Info) Description 01/13/2024 11:00 AM EDT Hospital Encounter Non[place] [address] Arrived documented as of this encounter Visit Diagnoses Not on filedocumented in this encounter Care Teams Test Engineering Intern Relationship Specialty Start Date End Date Gertrudis Li, PAB[place] [address] PCP - General Family Medicine 05/24/23 documented as of this encounter
--- OUTSIDE RECORDS SUMMARY | 2023-12-26 22:52 | XMS_ITS | Continuity of Care Document ---
Author Organization [facility] Address [address] [place] [id number] Care Team Providers Care Fire Fighting Equipment Specialist Name Role Phone BELTRAN JHAVERI APRN Primary Care Physician Encounter LTTL_NC FIN NBR [id number] Date(s): 12/19/23 - 12/19/23 [facility] [address] [place] [address]- Encounter Diagnosis Syncope(Discharge Diagnosis) - 12/19/23 Discharge Disposition: Home f/u External Provider Attending Physician: Kobe Horan MD Admitting Physician: Kobe Horan MD Allergies, Adverse Reactions, Alerts Substance Criticality Severity Reaction Reaction Severity Status sulfa drugs Low criticality Mild Hives Ac tive Venom 1 High criticality Severe Anaphylactic reaction Active 1bee venom Medications Advair HFA 230 mcg-21 mcg/inh inhalation aerosol 2 puffs, Inhale, BID, # 60 EA, 0 Refill(s) Start Date: 11/29/22 Status: Ordered Albuterol (Eqv-ProAir HFA) 90 mcg/inh inhalation aerosol 2 puffs, Inhale, every 6 hr, PRN as needed for wheezing, 0 Refill(s) Start Date: 12/19/23 Status: Ordered buPROPion 300 mg/24 hours (XL) oral tablet, extended release 300 mg = 1 tab, Oral, every morning, # 60 tab, 0 Refill(s) Start Date: 12/19/23 Status: Ordered cetirizine 10 mg oral tablet 10 mg = 1 tab, Oral, Daily, # 90 tab, 0 Refill(s) Start Date: 11/29/22 Status: Ordered cholecalciferol 50 mcg =, Oral, Daily, 0 Refill(s) Start Date: 12/19/23 Status: Ordered clonazePAM 0.5 mg oral tablet 0.5 mg = 1 tab, Oral, Daily, PRN anxiety, TAKE ONE TABLET BY MOUTH ONE TIME PER DAY ONLY NEEDED FOR BREAKTHROUGH ANXIETY Start Date: 12/19/23 Status: Ordered dexlansoprazole 30 mg oral delayed release capsule 30 mg = 1 cap, Oral, Daily, # 90 cap, 0 Refill(s) Start Date: 12/19/23 Status: Ordered dicyclomine 10 mg oral capsule 10 mg = 1 cap, Oral, Daily, PRN pain, 0 Refill(s) Start Date: 12/19/23 Status: Ordered docusate sodium 100 mg =, Oral, Daily, PRN as needed for constipation, 0 Refill(s) Start Date: 12/19/23 Status: Ordered EPINEPHrine 0.3 mg injectable kit 0.3 mg =, Subcutaneous, Once, PRN anaphylaxis, # 2 EA, 0 Refill(s) Start Date: 11/29/22 Status: Ordered escitalopram 20 mg oral tablet 20 mg = 1 tab, Oral, Daily, TAKE ONE TABLET BY MOUTH EVERY DAY Start Date: 02/05/23 Status: Ordered famotidine 20 mg oral tablet 40 mg = 2 tab, Oral, every night at bedtime, TAKE TWO TABLETS BY MOUTH AT BEDTIME Start Date: 11/29/22 Status: Ordered Invokana 100 mg oral tablet TAKE ONE TABLET BY MOUTH EVERY DAY Start Date: 02/05/23 Status: Ordered Invokana 100 mg oral tablet 100 mg = 1 tab, Oral, Daily, # 90 tab, 0 Refill(s) Start Date: 12/19/23 Status: Ordered Januvia 50 mg oral tablet 50 mg 1 tab, Oral, Daily, # 30 tab, 0 Refill(s) Start Date: 12/19/23 Status: Ordered Linzess 72 mcg oral capsule 72 mcg = 1 cap, Oral, Daily, do not crush or chew Taking 29mcg now, # 90 cap, 0 Refill(s) Start Date: 11/29/22 Status: Ordered lithium 300 mg oral tablet, extended release 300 mg = 1 tab, Oral, every night at bedtime, TAKE ONE TABLET BY MOUTH AT BEDTIME Start Date: 12/19/23 Status: Ordered meclizine 25 mg oral tablet 12.5 mg = 0.5 tab, Oral, TID, PRN as needed for dizziness, # 30 tab, 0 Refill(s) Start Date: 11/29/22 Status: Ordered midodrine 2.5 mg oral tablet 5 mg = 2 tab, Oral, TID, 0 Refill(s) Start Date: 12/15/23 Status: Ordered Potassium Chloride (Eqv-K-Tab) 20 mEq oral tablet, extended release 20 mEq = 1 tab, Oral, Daily, TAKE 1 TABLET BY MOUTH ONCE DAILY Start Date: 11/29/22 Status: Ordered QUEtiapine 300 mg oral tablet 300 mg = 1 tab, Oral, every night at bedtime, # 30 tab, 0 Refill(s) Start Date: 02/05/23 Status: Ordered Spiriva Respimat 1.25 mcg/inh inhalation aerosol 2 puffs, Inhale, every morning, # 4 g, 0 Refill(s) Start Date: 12/19/23 Status: Ordered sucralfate 1 g oral tablet 1 g = 1 tab, Oral, QID(ACHS), # 360 tab, 0 Refill(s) Start Date: 12/19/23 Status: Ordered SUMAtriptan 50 mg =, Oral, Daily, PRN as needed for migraine headache, 0 Refill(s) Start Date: 12/19/23 Status: Ordered Mental Status 12/19/23 Eye Opening Response Maidens Spontaneous ly Best Verbal Response Tiffanie Oriented Best Motor Response Maidens Obeys comman ds Tiffanie Coma Score 15 Problem List Condition Confirmation [...] 2neck 3back Results Laboratory List Name Date Urinalysis with Micro if Indicated and C ulture if Indicated 12/19/23 .Morphology (LTTL) 12/19/23 ABO/Rh 12/19/23 Antibody Screen Gel 12/19/23 CBC w/ Diff 12/19/23 Comprehensive Metabolic Panel (CMP) 12/18 Free T4 12/19/23 Lipase Level 12/19/23 PT/ INR 12/19/23 PTT 12/19/23 TSH w/ Rflx to Free T4 12/19/23 Troponin-I High Sensitivity 12/19/23 Automated Diff 12/19/23 Most recent to oldest [Reference Range]: 1 WBC [4.8-10.8 K/mcL] 11.4 K/mcL *HI* (12/19/23 7:40 PM) RBC [4.20-5.40 Million/mcL] 5.19 Million /mcL (12/19/23 7:40 PM) Neutro Auto [42.2-75.2 %] 67.1 % (12/19/23 7:40 PM) Lymph Auto [20.5-51.1 %] 25.0 % (12/19/23 7:40 PM) [place] Auto [1.7-9.3 %] 4.6 % (12/19/23 7:40 PM) Basophil Auto [0.0-0.8 %] 1.0 % *HI* (12/19/23 7:40 PM) Prothrombin Time [9.1-10.6 seconds] 9.6 seconds (12/19/23 7:40 PM) INR [0.9-1.1] 0.9 1 (12/19/23 7:40 PM) BUN [7-25 mg/dL] 11 mg/dL (12/19/23 7:40 PM) UA Color [Yellow] Yellow (12/19/23 8:54 PM) ABO/Rh Type O POS *Unknown* (12/19/23 7:40 PM) Glucose Level [70-109 mg/dL] 167 mg/dL *HI* (12/19/23 7:40 PM) Potassium Level [3.5-5.1 mmol/L] 3.6 mmo l/L (12/19/23 7:40 PM) Baso Absolute [0.0-0.2 K/mcL] 0.1 K/mcL (12/19/23 7:40 PM) MCV [81.0-99.0 fL] 77.6 fL *LOW* (12/19/23 7:40 PM) UA Urobilinogen [0.2] 0.2 (12/19/23 8:54 PM) RBC Morph [Normal] Abnormal *ABN* (12/19/23 7:40 PM) T4 Free [0.61-1.12 ng/dL] 0.59 ng/dL 2 *LOW* (12/19/23 7:40 PM) UA Bili [Negative] Negative *NA* (12/19/23 8:54 PM) UA Ketones [Negative] Negative *NA* (12/19/23 8:54 PM) AST [13-39 IntlUnit/L] 28 IntlUnit/L (12/19/23 7:40 PM) ALT [7-52 IntlUnit/L] 12 IntlUnit/L (12/19/23 7:40 PM) MCHC [32.0-37.0 g/dL] 32.5 g/dL (12/19/23 7:40 PM) Osmolality [275-295 mOsm/kg] 277 mOsm/kg (12/19/23 7:40 PM) Sodium Level [136-145 mmol/L] 137 mmol/L (12/19/23 7:40 PM) UA Leuk Est [Negative] Negative (12/19/23 8:54 PM) Lymph Absolute [1.2-3.4 K/mcL] 2.9 K/mcL (12/19/23 7:40 PM) UA Nitrite [Negative] Negative *NA* (12/19/23 8:54 PM) UA Glucose [Negative] >=1000 *NA* (12/19/23 8:54 PM) Hct [37.0-47.0 %] 40.2 % (12/19/23 7:40 PM) Microcyte 1+ *ABN* (12/19/23 7:40 PM) Lipase Level [11-82 unit/L] 96 unit/L 3 *HI* (12/19/23 7:40 PM) Schistocytes 1+ *ABN* (12/19/23 7:40 PM) Elliptocyte 1+ *ABN* (12/19/23 7:40 PM) Hypochromia 2+ *ABN* (12/19/23 7:40 PM) Partial Thromboplastin Time [21.3-28.4 s econds] 18.5 seconds *LOW* (12/19/23 7:40 PM) Calcium Level [8.6-10.3 mg/dL] 10.0 mg/d L (12/19/23 7:40 PM) [place] Absolute [0.1-0.6 K/mcL] 0.5 K/mcL (12/19/23 7:40 PM) Albumin Level [3.5-5.7 g/dL] 4.5 g/dL 4 (12/19/23 7:40 PM) Protein Total [6.4-8.9 g/dL] 8.0 g/dL (12/19/23 7:40 PM) UA Protein [Negative] Negative *NA* (12/19/23 8:54 PM) MCH [27.0-31.0 pg] 25.2 pg *LOW* (12/19/23 7:40 PM) Neutro Absolute [1.4-6.5 K/mcL] 7.6 K/mc L *HI* (12/19/23 7:40 PM) Bilirubin Total [0.3-1.0 mg/dL] 0.3 mg/d L (12/19/23 7:40 PM) Hgb [12.0-16.0 g/dL] 13.1 g/dL (12/19/23 7:40 PM) Alk Phos [34-104 IntlUnit/L] 115 IntlUni t/L *HI* (12/19/23 7:40 PM) UA Blood [Negative] Negative (12/19/23 8:54 PM) MPV [7.4-10.4 fL] 9.0 fL (12/19/23 7:40 PM) UA Spec Grav [1.001-1.030] <=1.005 *NA* (12/19/23 8:54 PM) Platelets [130-400 K/mcL] 359 K/mcL (12/19/23 7:40 PM) CO2 [21-31 mmol/L] 28 mmol/L (12/19/23 7:40 PM) Eos Absolute [0.0-0.2 K/mcL] 0.3 K/mcL *HI* (12/19/23 7:40 PM) TSH [0.45-5.33 mcIntlUnit/mL] 7.54 mcInt lUnit/mL *HI* (12/19/23 7:40 PM) UA pH [5.00-9.00] 5.50 (12/19/23 8:54 PM) UA Appear [Clear] Clear (12/19/23 8:54 PM) Chloride Level [98-107 mmol/L] 102 mmol/ L (12/19/23 7:40 PM) RDW-CV [11.5-14.5 %] 17.0 % *HI* (12/19/23 7:40 PM) A/G Ratio [1.0-2.5 g/dL] 1.3 g/dL (12/19/23 7:40 PM) BUN/Creat Ratio [8.0-20.0] 11.0 (12/19/23 7:40 PM) Globulin [2.3-3.5 g/dL] 3.5 g/dL (12/19/23 7:40 PM) Ovalocytes 1+ *ABN* (12/19/23 7:40 PM) Slide Review Morph Only (12/19/23 7:40 PM) Urine Srce Clean Catch (12/19/23 8:54 PM) Creatinine Level [0.60-1.20 mg/dL] 1.00 mg/dL (12/19/23 7:40 PM) Antibody Screen Gel Negative ABSC (12/19/23 7:40 PM) Plt Estimation Normal (12/19/23 7:40 PM) Troponin-I HS [<=12 ng/L] 2 ng/L 5 (12/19/23 7:40 PM) Anion Gap [3.0-12.0] 7.0 (12/19/23 7:40 PM) Eos, Auto [0.00-3.00 %] 2.30 % (12/19/23 7:40 PM) eGFR CKD-EPI [>=60 mL/min/1.73 m2] 69 mL /min/1.73 m2 (12/19/23 7:40 PM) 1Interpretive Data: THERAPEUTIC INR RANGES FOR WARFARIN Uncomplicated venous thromboembolic disease 2-3 Lupus Anticoagulant and recurrent thrombosis 3-3.5 Mechanical prosthetic valve or recurrent thrombosis 2.5-3.5 2Interpretive Data: Possible Interfering Substance: Biotin > 10 ng/mL may falsely elevate Free [id number]. 3Interpretive Data: K-iulpsg-n-benzoquinone imine (meabolite of Acetaminophen) will generate erroneously low lipase results in samples for patients that have taken toxic doses of acetaminophen. 4Result Comment: MODERATE HEMOLYSIS 5Interpretive Data: The Krysta ACCESS high-sensitivity Troponin I (hsTNI) 99 percentile cutoffs forhealthy adults are 12 ng/L or less for females and 20 ng/L or less for males. SERIAL MEASUREMENT IS HIGHLY RECOMMENDED for the diagnosis or exclusion of Acute Coronary Syndromes(ACS). Please refer to the High-Sensitivity Troponin Algorithm 2022 for guidance. As with all markers of cardiac injury, elevations of hsTnI do not in and of themselves indicate thepresence of an ischemic mechanism. Many other disease states can be associated with elevations via mechanisms different from those that cause injury in patients with ACS. These include trauma (contusion, ablation, pacing); congestive heart failure; pulmonary embolism; kidney failure; and myocarditis. Clinical judgement is necessary to distinguish patients who have ischemic heart disease from those who do not. Radiology Reports * Exam Date Time Procedure Performing Provider Status 12/19/23 8:48 PM XR Spine Lumbosacral 2 or 3 Views Krzysztof Figueroa (Verified) Notes: (XR Spine Lumbosacral 2 or 3 Views) Reason For Exam: low back pain XR Spine Lumbosacral 2 or 3 Views PROCEDURE INFORMATION: Exam: XR Lumbosacral Spine Exam date and time: 12/19/2023 8:48 PM Age: 48 years old Clinical indication: Low back pain TECHNIQUE: Imaging protocol: Radiologic exam of the lumbosacral spine. Views: 2 or 3 views. COMPARISON: CT ANGIO ABDOMEN 12/15/2023 1:16 PM FINDINGS: Bones/joints: Mild levoscoliosis of the spine. Chronic loss of vertebral body height No acute fracture. Foraminal stenosis at L5-S1 Soft tissues: Unremarkable. Surgical clips right upper quadrant IMPRESSION: No acute findings. Chronic finding s as noted THIS DOCUMENT HAS BEEN ELECTRONICALLY SIGNED BY NEAL ARIZMENDI MD on 12/19/2023 09:59 PM Final Signed by: Neal Arizmendi MD Signed (Electronic Signature): 12/19/2023 9:59 pm * Exam Date Time Procedure Performing Provider Status 12/19/23 8:[address] Head w/o Contrast Krzysztof Figueroa; Auth (Verified) Notes: (CT Head w/o Contrast) Reason For Exam: headache/ syncopal episode with fall CT Head w/o Contrast PROCEDURE INFORMATION: Exam: CT Head Without Contrast Exam date and time: 12/19/2023 8:30 PM Age: 48 years old Clinical indication: Pain; Headache; Additional info: Headache/ syncopal episode with fall TECHNIQUE: Imaging protocol: Computed tomography of the head without contrast. Radiation optimization: All CT scans at this facility use at least one of these dose optimization techniques: automated exposure control; mA and/or kV adjustment per patient size (includes targeted exams where dose is matched to clinical indication); or iterative reconstruction. COMPARISON: CT SPINE CERVICAL WO CONTRAST 12/19/2023 8:30 PM FINDINGS: Brain: No acute hemorrhage. Unremarkable white matter. No mass effect. Cerebral ventricles: No ventriculomegaly. Paranasal sinuses: Visualized sinuses are unremarkable. No fluid levels. Mastoid air cells: Visualized mastoid air cells are well aerated. Bones: Unremarkable. No acute fracture. Soft tissues: Unremarkable. IMPRESSION: No acute intracranial process. THIS DOCUMENT HAS BEEN ELECTRONICALLY SIGNED BY WILL KIMBLE MD on 12/19/2023 09:59 PM Final Signed by: Will Kimble MD Signed (Electronic Signature): 12/19/2023 9:59 pm * Exam Date Time Procedure Performing Provider Status 12/19/23 8:[address] Spine Cervical w/o Contrast XenaU ketan, Luiz; Auth (Verified) Notes: (CT Spine Cervical w/o Contrast) Reason For Exam: neck pain/ syncopal episode with fall CT Spine Cervical w/o Contrast PROCEDURE INFORMATION: Exam: CT Cervical Spine Without Contrast Exam date and time: 12/19/2023 8:30 PM Age: 48 years old Clinical indication: Neck pain; Additional info: Neck pain/ syncopal episode with fall TECHNIQUE: Imaging protocol: Computed tomography of the cervical spine without contrast. Radiation optimization: All CT scans at this facility use at least one of these dose optimization techniques: automated exposure control; mA and/or kV adjustment per patient size (includes targeted exams where dose is matched to clinical indication); or iterative reconstruction. COMPARISON: CT HEAD WO CONTRAST 12/19/2023 8:30 PM FINDINGS: Bones: Vertebral body heights preserved. Normal alignment. No significant disc bulge or herniation. No severe spinal canal stenosis. Bilateral cervical ribs with age-indeterminate fracture through right cervical rib. Lungs: Lung apices are normal. Soft tissues: Unremarkable. IMPRESSION: Age-indeterminate fracture through right C7 cervical rib THIS DOCUMENT HAS BEEN ELECTRONICALLY SIGNED BY WILL KIMBLE MD on 12/19/2023 10:05 PM Final Signed by: Will Kimble MD Signed (Electronic Signature): 12/19/2023 10:05 pm Vital Signs Most recent to oldest [Reference Range]: 1 Temperature Oral [35.8-37.3 Deg C] 37.3 Deg C (12/19/23 7:40 PM) Heart Rate Monitored [60-100 bpm] 75 bpm (12/19/23 7:40 PM) Respiratory Rate [12-24 br/min] 18 br/mi n (12/19/23 7:40 PM) Blood Pressure [90-140/60-90 mmHg] 128/8 3mmHg (12/19/23 7:40 PM) Mean Arterial Pressure, Cuff [65-140 mmH g] 98 mmHg (12/19/23 7:40 PM) Weight 83.46 kg (12/19/23 7:40 PM) Weight Dosing 83.460 kg (12/19/23 7:40 PM) Height 162 cm (12/19/23 7:40 PM) Body Mass Index 31.8 kg/m2 (12/19/23 7:40 PM) Social History Social History Type Response Tobacco Former tobacco user Tobacco Use:. Sex Sex Representation Female (finding) Hospital Discharge Instructions Patient Education 12/19/2023 21:01:48 Syncope, Adult Syncope, Adult Syncope refers to a condition in which a person temporarily loses consciousness. Syncope may also be called fainting or passing out. It is caused by a sudden decrease in blood flow to the brain. Thiscan happen for a variety of reasons. Most causes of syncope are not dangerous. It can be triggered by things such as needle sticks, seeing blood, pain, or intense emotion. However, syncope can also be a sign of a serious medical problem, such as a heart abnormality. Other causes can include dehydration, migraines, or taking medicines that lower blood pressure. Your health care provider may do tests to find the reason why you are having syncope. If you faint, get medical help right away. Call your local emergency services (911 in the [place] Follow these instructions at home: Pay attention to any changes in your symptoms. Take these actions to stay safe and to help relieve your symptoms: Knowing when you may be about to faint ??? Signs that you may be about to faint include: ??? Feeling dizzy, weak, light-headed, or like the room is spinning. ??? Feeling nauseous. ??? Seeing spots or seeing all white or all black in your field of vision. ??? Having cold, clammy skin or feeling warm and sweaty. ??? Hearing ringing in the ears (tinnitus). ??? If you start to feel like you might faint, sit or lie down right away. If sitting, put your head down between your legs. If lying down, raise (elevate) your feet above the level of your heart. ??? Breathe deeply and steadily. Wait until all the symptoms have passed. ??? Have someone stay with you until you feel stable. Medicines ??? Take jbao-sxd-srbxles and prescription medicines only as told by your health care provider. ??? If you are taking blood pressure or heart medicine, get up slowly and take several minutes to sit and then stand. This can reduce dizziness and decrease the risk of syncope. Lifestyle ??? Do not drive, use machinery, or play sports until your health care provider says it is okay. ??? Do not drink alcohol. ??? Do not use any products that contain nicotine or tobacco. These products include cigarettes, chewing tobacco, and vaping devices, such as e-cigarettes. If you need help quitting, ask your health care provider. ??? Avoid hot tubs and saunas. General instructions ??? Talk with your health care provider about your symptoms. You may need to have testing to understand the cause of your syncope. ??? Drink enough fluid to keep your urine pale yellow. ??? Avoid prolonged standing. If you must stand for a long time, do movements such as: ??? Moving your legs. ??? Crossing your legs. ??? Flexing and stretching your leg muscles. ??? Squatting. ??? Keep all follow-up visits. This is important. Contact a health care provider if: ??? You have episodes of near fainting. Get help right away if: ??? You faint. ??? You hit your head or are injured after fainting. ??? You have any of these symptoms that may indicate trouble with your heart: ??? Fast or irregular heartbeats (palpitations). ??? Unusual pain in your chest, abdomen, or back. ??? Shortness of breath. ??? You have a seizure. ??? You have a severe headache. ??? You are confused. ??? You have vision problems. ??? You have severe weakness or trouble walking. ??? You are bleeding from your mouth or rectum, or you have black or tarry stool. These symptoms may represent a serious problem that is an emergency. Do not wait to see if your symptoms will go away. Get medical help right away. Call your local emergency services (911 in the [place] Do not drive yourself to the hospital. Summary ??? Syncope refers to a condition in which a person temporarily loses consciousness. Syncope may also be called fainting or passing out. It is caused by a sudden decrease in blood flow to the brain. ??? Signs that you may be about to faint include dizziness, feeling light- headed, feeling nauseous,sudden vision changes, or cold, clammy skin. ??? Even though most causes of syncope are not dangerous, syncope can be a sign of a serious medical problem. Get help right away if you faint. ??? If you start to feel like you might faint, sit or lie down right away. If sitting, put your head down between your legs. If lying down, raise (elevate) your feet above the level of your heart. This information is not intended to replace advice given to you by your health care provider. Make sure you discuss any questions you have with your health care provider. Document Revised: 07/28/2021 Document Reviewed: 07/28/2021 [employer] Patient Education ?? 2022 [employer]. Follow Up Care 12/19/2023 19:20:30 With:BELTRAN JHAVERI APRN Address: [facility] [address] [place], [place] [id number]- When:1 week Emergency department Discharge instructions * HOLLY Alejandre: PERFORM Event Display: ED Discharge Information Authored Date: [id number] ARTHUR PHELPS :1975 Age:48 years Sex:Female Visit Date:12/19/2023 Primary Care Physician: BELTRAN JHAVERI APRN Discharge Instructions We would like to thank you for allowing us to assist you with your healthcare needs. The following includes patient education materials and information regarding your injury/illness. Diagnosis from Today's Visit Syncope Discharge Vitals Temperature??(Oral) 99.1 ??F (37.3 ??C) Heart Rate??(Monitored) 75 Respiratory Rate?? 18 Blood Pressure?? 128/83?? SpO2?? 98% Height?? 63.78 in (162 cm) Weight?? 184.03 lb (83.46 kg) BMI?? 31.8 Allergies Venom??(Anaphylactic reaction) sulfa drugs??(Hives) What to Do Next Instructions from Your Care Team You were seen here for evaluation after syncopal episode. ??Fortunately??labs and??advanced imagingwas reassuring do not see any acute findings. ??Please continue close follow-up with your primary care??and??GI follow-up. ??Return with any repeat syncopal episodes,??chest pain, headache, or vomiting. You Need to Schedule the Following Appointments Follow Up with??BELTRAN JHAVERI APRN When:??Within 1 week Where: [facility] [address] [place] [address]- You were treated today on an emergency [...] How Much When Instructions Next Dose Unchanged albuterol (Albuterol (Eqv- ProAir HFA) 90 mcg/ inh inhalation aerosol) 2 Puffs Inhale (breathe in) Every 6 hours as needed for as needed for wheezing Unchanged buPROPion (buPROPion 300 mg/ 24 hours (XL) oral tablet, extended release) 1 tab Oral (given by mouth) Every morning Unchanged canagliflozin (Invokana 100 mg oral tablet) TAKE ONE TABLET BY MOUTH EVERY DAY ?? Unchanged canagliflozin (Invokana 100 mg oral tablet) 1 tab Oral (given by mouth) Every day Unchanged cetirizine (cetirizine 10 mg oral tablet) 1 tab Oral (given by mouth) Every day Unchanged cholecalciferol 50 Micrograms Oral (given by mouth) Every day Unchanged clonazePAM (clonazePAM 0.5 mg oral tablet) 1 tab Oral (given by mouth) Every day as needed for anxiety TAKE ONE TABLET BY MOUTH ONE TIME PER DAY ONLY NEEDED FOR BREAKTHROUGH ANXIETY ?? Unchanged dexlansoprazole (dexlansoprazole 30 mg oral delayed release capsule) 1 Capsules Oral (given by mouth) Every day Unchanged dicyclomine (dicyclomine 10 mg oral capsule) 1 Capsules Oral (given by mouth) Every day as needed for pain Unchanged docusate (docusate sodium) 100 Milligrams Oral (given by mouth) Every day as needed for as needed for constipation Unchanged EPINEPHrine (EPINEPHrine 0.3 mg injectable kit) 0.3 Milligrams Subcutaneous (under the skin) Once as needed for anaphylaxis Unchanged escitalopram (escitalopram 20 mg oral tablet) 1 tab Oral (given by mouth) Every day TAKE ONE TABLET BY MOUTH EVERY DAY ?? Unchanged famotidine (famotidine 20 mg oral tablet) 2 tab Oral (given by mouth) Every night at bedtime TAKE TWO TABLETS BY MOUTH AT BEDTIME ?? Unchanged fluticasone-salmeterol (Advair HFA 230 mcg-21 mcg/ inh inhalation aerosol) 2 Puffs Inhale (breathe in) 2 times a day Unchanged linaclotide (Linzess 72 mcg oral capsule) 1 Capsules Oral (given by mouth) Every day do not crush or chew Taking 29mcg now ?? Unchanged lithium (lithium 300 mg oral tablet, extended release) 1 tab Oral (given by mouth) Every night at bedtime TAKE ONE TABLET BY MOUTH AT BEDTIME ?? Unchanged meclizine (meclizine 25 mg oral tablet) 0.5 tab Oral (given by mouth) 3 times a day as needed for as needed for dizziness Unchanged midodrine (midodrine 2.5 mg oral tablet) 2 tab Oral (given by mouth) 3 times a day Unchanged potassium chloride (Potassium Chloride (Eqv-K-Tab) 20 mEq oral tablet, extended release) 1 tab Oral (given by mouth) Every day TAKE 1 TABLET BY MOUTH ONCE DAILY ?? Unchanged QUEtiapine (QUEtiapine 300 mg oral tablet) 1 tab Oral (given by mouth) Every night at bedtime Unchanged SITagliptin (Januvia 50 mg oral tablet) 1 tab Oral (given by mouth) Every day Unchanged sucralfate (sucralfate 1 g oral tablet) 1 tab Oral (given by mouth) 4 times a day (before meals and at bedtime) Unchanged SUMAtriptan 50 Milligrams Oral (given by mouth) Every day as needed for as needed for migraine headache Unchanged tiotropium (Spiriva Respimat 1.25 mcg/ inh inhalation aerosol) 2 Puffs Inhale (breathe in) Every morning Education Materials Syncope, Adult Syncope refers to a condition in which a person temporarily loses consciousness. Syncope may also be called fainting or passing out. It is caused by a sudden decrease in blood flow to the brain. Thiscan happen for a variety of reasons. Most causes of syncope are not dangerous. It can be triggered by things such as needle sticks, seeing blood, pain, or intense emotion. However, syncope can also be a sign of a serious medical problem, such as a heart abnormality. Other causes can include dehydration, migraines, or taking medicines that lower blood pressure. Your health care provider may do tests to find the reason why you are having syncope. If you faint, get medical help right away. Call your local emergency services (911 in the [place] Follow these instructions at home: Pay attention to any changes in your symptoms. Take these actions to stay safe and to help relieve your symptoms: Knowing when you may be about to faint ? Signs that you may be about to faint include: ? Feeling dizzy, weak, light-headed, or like the room is spinning. ? Feeling nauseous. ? Seeing spots or seeing all white or all black in your field of vision. ? Having cold, clammy skin or feeling warm and sweaty. ? Hearing ringing in the ears (tinnitus). ? If you start to feel like you might faint, sit or lie down right away. If sitting, put your head down between your legs. If lying down, raise (elevate) your feet above the level of your heart. ? Breathe deeply and steadily. Wait until all the symptoms have passed. ? Have someone stay with you until you feel stable. Medicines ? Take [id number] and prescription medicines only as told by your health care provider. ? If you are taking blood pressure or heart medicine, get up slowly and take several minutes to sit and then stand. This can reduce dizziness and decrease the risk of syncope. Lifestyle ? Do not drive, use machinery, or play sports until your health care provider says it is okay. ? Do not drink alcohol. ? Do not use any products that contain nicotine or tobacco. These products include cigarettes, chewing tobacco, and vaping devices, such as e-cigarettes. If you need help quitting, ask your health careprovider. ? Avoid hot tubs and saunas. General instructions ? Talk with your health care provider about your symptoms. You may need to have testing to understandthe cause of your syncope. ? Drink enough fluid to keep your urine pale yellow. ? Avoid prolonged standing. If you must stand for a long time, do movements such as: ? Moving your legs. ? Crossing your legs. ? Flexing and stretching your leg muscles. ? Squatting. ? Keep all follow-up visits. This is important. Contact a health care provider if: ? You have episodes of near fainting. Get help right away if: ? You faint. ? You hit your head or are injured after fainting. ? You have any of these symptoms that may indicate trouble with your heart: ? Fast or irregular heartbeats (palpitations). ? Unusual pain in your chest, abdomen, or back. ? Shortness of breath. ? You have a seizure. ? You have a severe headache. ? You are confused. ? You have vision problems. ? You have severe weakness or trouble walking. ? You are bleeding from your mouth or rectum, or you have black or tarry stool. These symptoms may represent a serious problem that is an emergency. Do not wait to see if your symptoms will go away. Get medical help right away. Call your local emergency services (911 in the [place] Do not drive yourself to the hospital. Summary ? Syncope refers to a condition in which a person temporarily loses consciousness. Syncope may also be called fainting or passing out. It is caused by a sudden decrease in blood flow to the brain. ? Signs that you may be about to faint include dizziness, feeling light-headed, feeling nauseous, sudden vision changes, or cold, clammy skin. ? Even though most causes of syncope are not dangerous, syncope can be a sign of a serious medical problem. Get help right away if you faint. ? If you start to feel like you might faint, sit or lie down right away. If sitting, put your head down between your legs. If lying down, raise (elevate) your feet above the level of your heart. This information is not intended to replace advice given to you by your health care provider. Make sure you discuss any questions you have with your health care provider. Document Revised: 07/28/2021 Document Reviewed: 07/28/2021 [employer] Patient Education ?? 2022 [employer] Tests Performed Radiology CT Head w/o Contrast 12/19/2023 21:[address] Spine Cervical w/o Contrast 12/19/2023 22:06 EDT XR Spine Lumbosacral 2 or 3 Views 12/19/2023 22:00 EDT Medications and Immunizations Administered Given Sodium Chloride 0.9%, 1000 mL, Hydration Bolus Lab Test Name Test Result Date/Time WBC 11.4 K/mcL 12/19/2023 19:40 EDT RBC 5.19 Million/mcL 12/19/2023 19:40 EDT Hgb 13.1 g/dL 12/19/2023 19:40 EDT Hct 40.2 % 12/19/2023 19:40 EDT MCV 77.6 fL 12/19/2023 19:40 EDT MCH 25.2 pg 12/19/2023 19:40 EDT MCHC 32.5 g/dL 12/19/2023 19:40 EDT RDW-CV 17.0 % 12/19/2023 19:40 EDT Platelets 359 K/mcL 12/19/2023 19:40 EDT MPV 9.0 fL 12/19/2023 19:40 EDT Neutro Auto 67.1 % 12/19/2023 19:40 EDT Lymph Auto 25.0 % 12/19/2023 19:40 EDT [place] Auto 4.6 % 12/19/2023 19:40 EDT Eos, Auto 2.30 % 12/19/2023 19:40 EDT Basophil Auto 1.0 % 12/19/2023 19:40 EDT Neutro Absolute 7.6 K/mcL 12/19/2023 19:40 EDT Lymph Absolute 2.9 K/mcL 12/19/2023 19:40 EDT [place] Absolute 0.5 K/mcL 12/19/2023 19:40 EDT Eos Absolute 0.3 K/mcL 12/19/2023 19:40 EDT Baso Absolute 0.1 K/mcL 12/19/2023 19:40 EDT RBC Morph Abnormal 12/19/2023 19:40 EDT Elliptocyte 1+ 12/19/2023 19:40 EDT Hypochromia 2+ 12/19/2023 19:40 EDT Microcyte 1+ 12/19/2023 19:40 EDT Ovalocytes 1+ 12/19/2023 19:40 EDT Plt Estimation Normal 12/19/2023 19:40 EDT Schistocytes 1+ 12/19/2023 19:40 EDT Slide Review Morph Only 12/19/2023 19:40 EDT Prothrombin Time 9.6 seconds 12/19/2023 19:40 EDT INR 0.9 12/19/2023 19:40 EDT Partial Thromboplastin Time 18.5 seconds 12/19/2023 19:40 EDT Sodium Level 137 mmol/L 12/19/2023 19:40 EDT Potassium Level 3.6 mmol/L 12/19/2023 19:40 EDT Chloride Level 102 mmol/L 12/19/2023 19:40 EDT CO2 28 mmol/L 12/19/2023 19:40 EDT Alk Phos 115 IntlUnit/L 12/19/2023 19:40 EDT AST 28 IntlUnit/L 12/19/2023 19:40 EDT ALT 12 IntlUnit/L 12/19/2023 19:40 EDT BUN 11 mg/dL 12/19/2023 19:40 EDT Glucose Level 167 mg/dL 12/19/2023 19:40 EDT Creatinine Level 1.00 mg/dL 12/19/2023 19:40 EDT BUN/Creat Ratio 11.0 12/19/2023 19:40 EDT eGFR CKD-EPI 69 mL/min/1.73 m2 12/19/2023 19:40 EDT Calcium Level 10.0 mg/dL 12/19/2023 19:40 EDT Protein Total 8.0 g/dL 12/19/2023 19:40 EDT Albumin Level 4.5 g/dL 12/19/2023 19:40 EDT Globulin 3.5 g/dL 12/19/2023 19:40 EDT A/G Ratio 1.3 g/dL 12/19/2023 19:40 EDT Bilirubin Total 0.3 mg/dL 12/19/2023 19:40 EDT Anion Gap 7.0 12/19/2023 19:40 EDT Lipase Level 96 unit/L 12/19/2023 19:40 EDT Osmolality 277 mOsm/kg 12/19/2023 19:40 EDT Troponin-I HS 2 ng/L 12/19/2023 19:40 EDT T4 Free 0.59 ng/dL 12/19/2023 19:40 EDT TSH 7.54 mcIntlUnit/mL 12/19/2023 19:40 EDT Urine Srce Clean Catch 12/19/2023 20:54 EDT UA Color YELLOW. 12/19/2023 20:54 EDT UA Appear CLEAR. 12/19/2023 20:54 EDT UA Glucose >=1000 12/19/2023 20:54 EDT UA Bili NEGATIVE 12/19/2023 20:54 EDT UA Ketones NEGATIVE 12/19/2023 20:54 EDT UA Spec Grav <=1.005 12/19/2023 20:54 EDT UA Blood NEGATIVE 12/19/2023 20:54 EDT UA pH 5.50 12/19/2023 20:54 EDT UA Protein NEGATIVE 12/19/2023 20:54 EDT UA Urobilinogen 0.2 12/19/2023 20:54 EDT UA Nitrite NEGATIVE 12/19/2023 20:54 EDT UA Leuk Est NEGATIVE 12/19/2023 20:54 EDT ABO/Rh Type O POS 12/19/2023 19:40 EDT Antibody Screen Gel Negative ABSC 12/19/2023 19:40 EDT Patient/Laborer Vineyard Signature Patient Name:ARTHUR PHELPS I have received this information and my questions have been answered. Patient/Laborer Vineyard Name: Patient/Laborer Vineyard Signature: Relationship to Patient: Witness Name/Signature: Date: Electronically Signed on: 12/19/2023 22:14 EDTSigned by:SIENA Patient Care team information Care Team Personnel Name: BELTRAN JHAVERI APRN Position: No Access Member Role: Primary Care Physician [address]: [address] [place] [address]- [place] Insurance Providers Guarantor name: ARTHUR PHELPS Health Plan Information #: 2 Payer: MEDICAID [place] Member Number: [id number] Policy Number: JUAQUIN Health Plan Information #: 1 Payer: [facility] [employer] Member Number: [id number] Policy Number: [id number]
--- OUTSIDE RECORDS SUMMARY | 2023-12-26 22:52 | XMS_ITS | Encounter Summary ---
[place] [address] Care Team Providers Care Disk Sander Name Role Phone Gertrudis Li APRN Primary Care Provider [phone] Encounter Details Date Type Department Care Team (Late st Contact Info) Description 05/17/2005 [place] [address] Chadwick Epps MD [place], [place] Social History Tobacco Use Types Packs/Day [...] AM EDT Hospital Encounter Non-Invasive [place] [address] Arrived documented as of this encounter Procedures Procedure Name Priority Date/Time Associated Diagnosis Comments SURGICAL PATHOLOGY REPORT Routine 05/17/2005 8:54 PM EST documented in this encounter Results * Surgical Pathology Report (05/17/2005 8:54 PM EST) Surgical Pathology Report [id number] ? Location: The signing pathologist has (i) [...] report in rendering the final pathologic diagnosis. [facility] 05/17/2005 8:54 PM EST Chadwick Epps MD PATHOLOGY/CYTOLOGY O [place] Performing Organization Address City/State/[facility] Co de Phone Number [facility] documented in this encounter Visit Diagnoses Not on filedocumented in this encounter Care Teams Disk Sander Relationship Specialty Start Date End Date Gertrudis Li, HARDWARE DESIGNER [address] [place] [address] PCP - General Family Medicine 05/24/23 documented as of this encounter
--- OUTSIDE RECORDS SUMMARY | 2023-12-26 22:52 | XMS_ITS | Encounter Summary ---
Author Organization [facility] [place] [address] Care Team Providers Care Music Manager Name Role Phone Gertrudis Li APRN Primary Care Provider [phone] Reason for Visit * Reason Comments Syncope and Collapse Encounter Details Date Type Department Care Team (Late st Contact Info) Description 12/12/2023 11:00 AM EDT Office Visit Cardiology at [address] [place] [address] Austin Loredo MD [facility] [address] [place] [address] Syncope and collapse Social History Tobacco Use [...] Follow Up Patient ID Janessa Covarrubias 1975 [id number] Janessa Covarrubias is referred to the EP clinic by Gertrudis Li APRN Chief Complaint ILR H/o Syncope History This is a 48 y.o. female following up/being seen in clinic for ILR evaluation/prior history of syncope - episodes that have happened since 2019. Her LINQ was implanted 05/2020. She has previously beenfollowed by [facility] at [facility] She has a past medical history that [...] recorder - previously followed by cardiology in [place], [place] Orthostatic hypotension Nail dystrophy Major depressive disorder, [...] Mental Status: She is alert. The tablet cad cam programmer was unable to make a connection to the implantable loop recorder Impression Janessa Covarrubias is seen in the EP clinic for follow up of her ILR that was implanted for syncope in 2020. She has previously been followed by [place] [facility]. 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 She has never been trialed on fludrocortisone as far as I can tell. Her implantable loop recorder data is currently being sent to [facility], I asked her whether she would like me to request transfer of this day to to the [facility], she said yes. Will [...] may prefer to have follow-up as at [facility] as this is closer. AUSTIN LOREDO MD Cardiac Electrophysiology [facility] [place] 40 minutes were spent preparing to see [...] AM EDT Hospital Encounter Non-Invasive [place] [address] Arrived documented as of this encounter Visit Diagnoses Diagnosis Syncope and collapse documented in this encounter Care Teams Music Manager Relationship Specialty Start Date End Date Gertrud[place] [address] PCP - General Family Medicine 05/24/23 documented as of this encounter
--- OUTSIDE RECORDS SUMMARY | 2023-12-26 22:52 | XMS_ITS | Encounter Summary ---
[place] [address] Care Team Providers Care Purse Framer Name Role Phone Gertrudis Li APRN Primary Care Provider [phone] Encounter Details Date Type Department Care Team (Late st Contact Info) Description 12/11/2023 Abstract Cardiology at [address] [address] Ashleigh Aviles RN Social History [...] AM EDT Hospital Encounter Non-In[place] [address] Arrived documented as of this encounter Visit Diagnoses Not on filedocumented in this encounter Care Teams Purse Framer Relationship Specialty Start Date End Date Gertrudis Li APR[place] [place] [address] PCP - General Family Medicine 05/24/23 documented as of this encounter
--- NOTE | 2023-12-26 23:04 | W.ED.GENAD ---
Discharge Plan Disposition Patient Disposition: Home Condition: Good Discharge Details Clinical Impression: Acute sore throat, Acute effusion of left ear Primary Care Provider: BELTRAN JHAVERI ED Provider: Debbi Reno Home Meds and New Rx's Prescriptions: Continued Januvia 50 mg tablet 50 mg PO DAILY sucralfate [Carafate] 1 gram tablet 1 g PO QID Qty: 120 12RF docusate sodium 100 mg capsule 100 mg PO TID fluticasone propion-salmeterol [Advair HFA] 230-21 mcg/actuation HFA aerosol inhaler 2 puff inhalation BID albuterol sulfate 90 mcg/actuation HFA aerosol inhaler 2 puff inhalation Q6H PRN cetirizine 10 mg tablet 10 mg PO DAILY PRN clonazepam 0.5 mg tablet 0.5 mg PO DAILY PRN epinephrine 0.3 mg/0.3 mL auto-injector 0.3 mg IM ONCE Rx Instructions: as a single dose; may repeat once potassium chloride [Klor-Con] 20 mEq packet 20 meq PO DAILY Linzess 72 mcg capsule 72 mcg PO DAILY quetiapine 300 mg tablet 300 mg PO QHS Spiriva Respimat 1.25 mcg/actuation mist 2 puff inhalation DAILY acetaminophen [Tylenol Extra Strength] 500 mg tablet 500 mg PO Q6H PRN dexlansoprazole [Dexilant] 30 mg capsule,biphase delayed releas 30 mg PO DAILY Qty: 30 6RF Invokana 100 mg tablet 100 mg PO DAILY lithium carbonate 300 mg tablet extended release 300 mg PO HS Patient Comments: TAKE 1 TABLET BY MOUTH IN THE EVENING sumatriptan succinate 50 mg tablet 50 mg PO ONCE PRN Patient Comments: TAKE ONE TABLET BY MOUTH AT ONSET OF HEADACHE, MAY REPEAT IN TWO HOURS IF NECESSARY NOT TO EXCEED 2 TABLETS IN 24 HOURS Januvia 100 mg tablet 100 mg PO DAILY Patient Comments: TAKE ONE TABLET BY MOUTH EVERY DAY IN THE MORNING cholecalciferol (vitamin D3) 50 mcg (2,000 unit) capsule 50 mcg PO DAILY Patient Comments: TAKE TWO CAPSULES BY MOUTH EVERY DAY bupropion HCl 300 mg tablet extended release 24 hr 150 mg PO DAILY escitalopram oxalate 20 mg tablet 20 mg PO DAILY AM Patient Comments: TAKE 1 TABLET BY MOUTH ONCE DAILY midodrine 2.5 mg tablet 2 tab PO TID Patient Comments: TAKE 2 TABLETS BY MOUTH THREE TIMES DAILY Discharge Instructions Instructions: Sore Throat, Adult ED Additional Instructions: Tylenol over the counter for pain; follow the directions on the bottle. You can use over the counter decongestants to help with your ear symptoms; nasal spray and/or oral decongestants. Call your primary care doctor today to schedule an appointment for within the next three days to follow up on your visit here. Return to the emergency department for new or worsening symptoms including difficultly breathing, inability to swallow, or if you have any other concerns. HPI General Mode of arrival: ambulatory. Date/Time Provider Initiated Documentation: 12/26/23 22:43. Limitations to Documentation: no limitations. Information obtained by: patient. HPI Narrative: 48yo F with hx peptic ulcer disease, T2DM, asthma, conversion disorder, presenting with sore throat, nasal congestion, and left ear 'fullness' and pain since this morning. No difficulty swallowing, no difficulty with secretions, no difficulty breathing. Left ear fulls full and sounds are muffled, however she can hear her own voice and her heartbeat very loudly. Mild pain in the left ear which was improved somewhat with tylenol. Partner was diagnosed with strep throat recently. Does feel somewhat lightheaded but this is typical for her and not worse than usual. She is otherwise in her usual state of health with no fevers, chills, rash, nausea, vomiting, or other concerns. Related Data Home Medications ?Medication ?Instructions ?Recorded ?Confirmed cholecalciferol (vitamin D3) 50 50 mcg PO DAILY 02/14/21 12/26/23 mcg (2,000 unit) capsule escitalopram oxalate 20 mg tablet 20 mg PO DAILY AM 11/12/21 12/26/23 midodrine 2.5 mg tablet 2 tab PO TID 11/12/21 12/26/23 lithium carbonate 300 mg 300 mg PO HS 03/19/22 12/26/23 tablet,extended release bupropion HCl 300 mg 24 hr tablet, 150 mg PO DAILY 09/13/22 12/26/23 extended release sitagliptin phosphate 50 mg tablet 50 mg PO DAILY 01/09/23 12/26/23 (Januvia) albuterol sulfate 90 mcg/actuation 2 puff inhalation Q6H PRN 05/01/23 12/26/23 aerosol inhaler cetirizine 10 mg tablet 10 mg PO DAILY PRN 05/01/23 12/26/23 clonazepam 0.5 mg tablet 0.5 mg PO DAILY PRN 05/01/23 12/26/23 epinephrine 0.3 mg/0.3 mL 0.3 mg IM ONCE 05/01/23 12/26/23 injection, auto-injector fluticasone propionate 230 2 puff inhalation BID 05/01/23 12/26/23 mcg-salmeterol 21 mcg/actuation HFA inhaler (Advair HFA) linaclotide 72 mcg capsule 72 mcg PO DAILY 05/01/23 12/26/23 (Linzess) potassium chloride 20 mEq oral 20 meq PO DAILY 05/01/23 12/26/23 packet (Klor-Con) quetiapine 300 mg tablet 300 mg PO QHS 05/01/23 12/26/23 tiotropium bromide 1.25 2 puff inhalation DAILY 05/01/23 12/26/23 mcg/actuation mist for inhalation (Spiriva Respimat) canagliflozin 100 mg tablet 100 mg PO DAILY 05/25/23 12/26/23 (Invokana) docusate sodium 100 mg capsule 100 mg PO TID 08/13/23 12/26/23 sucralfate 1 gram tablet (Carafate) 1 g PO QID #120 tabs 08/13/23 12/26/23 acetaminophen 500 mg tablet 500 mg PO Q6H PRN 09/06/23 12/26/23 (Tylenol Extra Strength) dexlansoprazole 30 mg 30 mg PO DAILY #30 caps 09/06/23 12/26/23 capsule,biphase delayed release (Dexilant) sitagliptin phosphate 100 mg 100 mg PO DAILY 12/26/23 12/26/23 tablet (Januvia) sumatriptan succinate 50 mg tablet 50 mg PO ONCE PRN 12/26/23 12/26/23 Previous Rx's ?Medication ?Instructions ?Recorded sucralfate 1 gram tablet (Carafate) 1 g PO QID #120 tabs 08/13/23 dexlansoprazole 30 mg 30 mg PO DAILY #30 caps 09/06/23 capsule,biphase delayed release (Dexilant) Allergies Allergy/AdvReac Type Severity Reaction Status Date / Time venom-honey bee Allergy Severe Other (See Verified 12/26/23 23:17 Comment) Sulfa (Sulfonamide Allergy HIVES Verified 12/26/23 23:17 Antibiotics) General Stated Complaint: ThroatFB MIKE: 5 Review of Systems Narrative: see HPI Exam Narrative Exam Narrative: General: Alert, well appearing, well nourished, in no acute distress. Head: Normocephalic, atraumatic Neck: Trachea midline, ?Neck supple. ENT: ?MMM.? No oropharygeal lesions or exudate. Right TM clear, left TM with effusion with no erythema. Cardiac: ?RRR, no murmurs appreciated Resp: No respiratory distress. CTAB. Abd: ?Soft, non-distended, nontender Extremities: ?No deformities.? No peripheral edema. Neurologic: GCS 15. ? Moves all extremities freely against gravity Course Vital Signs Vital signs: Vital Signs Temperature 36.9 C 12/26/23 22:45 Pulse 82 12/26/23 22:45 Respiratory Rate 16 12/26/23 22:45 Blood Pressure 131/87 12/26/23 22:45 Pulse Oximetry 98 12/26/23 22:45 Temperature 36.9 C 12/26/23 22:45 Temperature Source Temporal Artery Scan 12/26/23 22:45 Pulse 82 12/26/23 22:45 Respiratory Rate 16 12/26/23 22:45 Respiratory Effort Normal 12/26/23 22:53 Blood Pressure 131/87 12/26/23 22:45 Pulse Oximetry 98 12/26/23 22:45 Oxygen Delivery Method Room Air 12/26/23 22:45 Oxygen Flow Rate 0 12/26/23 22:45 Pain Level 8 12/26/23 22:45 Medical Decision Making 48yo F with hx peptic ulcer disease, T2DM, asthma, conversion disorder, presenting with sore throat, nasal congestion, and left ear 'fullness' and pain since this morning. Vital signs reassuring on arrival. Well appearing on exam with no respiratory distress, stridor, or difficultly with secretions. Does have mild effusion in left ear with no erythema or other indication of infection. Not concerned for otitis externa, epiglotitits, Boogie's, deep space neck infection, not septic. No indication for labs or imaging at this time. Will treat symptoms with decongestants, tylenol, toradol. Strep and covid/flu/rsv negative. Advised symptomatic treatment at home. Discharged home; discharge instructions and return precautions were reviewed wtih patient who verbalized understanding. All questions were answered and she is in full agreement with the plan. Lab Data Lab results reviewed: Yes I reviewed the patient's lab results. Labs: 12/26/23 22:55 Tonsil - Not Specified Group A Streptococcus Culture - Pending Laboratory Tests Range/Units 12/26/23 23:15 COVID-19 Source Nasopharynx SARS-CoV-2 (PCR) (Negative) Negative Influenza Type A (PCR) (Negative) Negative Influenza Type B (PCR) (Negative) Negative RSV (PCR) (Negative) Negative Quality:SDOH Health Related Social Needs: No Data to Display PFSH All Active Problems (Updated 12/26/23 @ 23:43 by Debbi Reno MD) Acute effusion of left ear (Acute) Acute sore throat (Acute) Acute epigastric pain (Acute) History of peptic ulcer disease (Acute) GI bleed (Chronic) Rectal bleeding (Acute) Suprapubic pain (Acute) Hiatal hernia with GERD (Acute) Chronic erosive gastritis (Acute) Bipolar 2 disorder (Chronic) Type 2 diabetes mellitus with peripheral neuropathy (Acute) Chest pain, unspecified (Acute) Anxiety (Chronic) Psychologic conversion disorder (Acute) Urinary incontinence (Acute) Seasonal affective disorder (Acute) Tinea pedis (Acute) Onychomycosis (Acute) PVD (peripheral vascular disease) (Chronic) Nail dystrophy (Acute) Type 2 diabetes mellitus (Chronic) Shortness of breath (Acute) Muscle pain (Acute) Atypical chest pain (Acute) GERD (gastroesophageal reflux disease) (Chronic) Nausea and vomiting in adult (Acute) Abnormal CT of the abdomen (Acute) N&V (nausea and vomiting) (Acute) Hypokalemia (Acute) Right lower quadrant abdominal pain (Acute) Gastroesophageal reflux disease (Chronic) Asthma (Chronic) Depression (Chronic) Takes Fluoxetine 20mg QD with good impact on her depression, denies any SI. Encouraged to continue. to try to tame a benyurde. Medical History RLQ abdominal tenderness Pre-syncope Orthostatic hypotension Nonspecific paroxysmal spell Dizziness Vertigo Gallstones without obstruction of gallbladder Calculus of gallbladder with chronic cholecystitis without obstruction Pacemaker Gestational diabetes mellitus High ankle sprain of right lower extremity Acne (04/21/13) Back pain Taking prednisone 60mg QD for 4 days. Currently on day 2. Not feeling it is making much of a difference but she was encouraged to take for the full 4 days. Also suggested she take the muscle relaxer only PRN as it makes her quite drowsy. Encouraged to take at night. To help with rest. Other valenzuela, suggested she increse Aleve to AM & PM dose, then supplement with 1000mg Acetaminophen every 4-6 hours up to a total of 4000mg/day. Suggested ice might help more than heat but either should be limited to only 20 minutes at a time. Use topicals (Solopas Gel or Aspercreame with Lidocaine seem to be quite helpful. Try to avoid sitting or standing still for prolonged periods of time. Walking on flat ground is encourage. Surgical History History of cholecystectomy (~03/2019) History of esophagogastroduodenoscopy (EGD) (~07/2022) History of hysterectomy History of bilateral ligation of fallopian tubes History of discectomy Status post dilation and curettage S/P endometrial ablation irregular bleeding has restarted, neg EM bx 01/2016 discectomy (~2003) Ligation of fallopian tube Endometrial Ablation (~2009) Dilation and curettage X 2 with losses ANAL SURGERY surgical drainage of anal fissure Family History Mother Hyperlipidemia Thyroid disorder Father Essential hypertension Diabetes Personal history of malignant neoplasm prostate Heart disease Hyperlipidemia Myocardial infarction Social History Smoking/Tobacco Use Status: Former Tobacco Use Quit Date: 04/02/22 Tobacco: How many years used: 20 Smoking risk assessment performed?: Yes Alcohol Intake: never Drug use: Never Substance use type: does not use Household members: family and other Details: Lives with demented mother and her brother Housing: house 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
[2023-12-26 23:54] LABS: COVID-19 PCR Negative (Negative); Influenza A PCR Negative (Negative); Influenza B PCR Negative (Negative); RSV PCR Negative (Negative)
[2023-12-26 23:58] LABS: Source Nasopharynx
[2023-12-27] MEDS: Ketorolac 15 MG/ML VIAL IM (00:10)
[2023-12-27] MEDS: Acetaminophen 325 MG TAB 650 MG PO (00:10)
[2023-12-27] MEDS: Oxymetazolone 0.05% SPRAY 15 ML BTL NS (00:11)
== END 2023-12-27 00:31 | disposition home or self-care (01) ==
PROVIDERS: Emergency Provider Student in an Organized Health Care Education/Training Program; PCP Nurse Practitioner Family
DX: J02.9 Acute pharyngitis, unspecified (principal); H65.192 Other acute nonsuppurative otitis media, left ear
CPT/HCPCS: 87637; 87880; 96372; 99284; 87081; J1885

== ENCOUNTER → 2024-01-09 13:18 | Outpatient (BNVA) | payer MEDICARE, MEDICAID, SELFPAY | PROVIDERS: PCP Nurse Practitioner Family; Referring Provider Nurse Practitioner Family; Visit Provider Nurse Practitioner Gerontology | DX: R32 Unspecified urinary incontinence (principal) | CPT/HCPCS: 51798; 99213 ==

== ENCOUNTER 2024-02-01 22:23 | Emergency (ER) | payer MEDICARE, MEDICAID, SELFPAY ==
[2024-02-01 22:29] VITALS: BP 147/67; PULSE 79; RESP 16; TEMP 36.5; O2SAT 98
--- NOTE | 2024-02-01 22:30 | DI.RAD_ITS ---
Exam(s) XR SHOULDER RT COMPLETE 2+V EXAM: XR SHOULDER RT COMPLETE 2+V CLINICAL HISTORY: Pain posterior, tingling in arm. TECHNIQUE: 2D digital imaging was performed. Five views. COMPARISON: CR RIGHT SHOULDER COMPLETE from 09/07/2017 FINDINGS: BONES: No acute fracture is present. No bony destructive lesion is seen. JOINTS: No dislocation present. AC joint is not widened. Mild degenerative changes. SOFT TISSUE: Normal. IMPRESSION: Mild degenerative changes. No acute abnormality. DATA REPOSITORY: RADIATION DOSE DELIVERED:
--- NOTE | 2024-02-01 22:41 | W.ED.GENAD ---
Discharge Plan Disposition Patient Disposition: Home Condition: Stable Discharge Details Clinical Impression: Acute pain of right shoulder, Gastroesophageal reflux disease, Type 2 diabetes mellitus, Bipolar 2 disorder, Tingling of right upper extremity Primary Care Provider: BELTRAN JHAVERI ED Provider: Rebeca Galdamez Home Meds and New Rx's Prescriptions: New lidocaine 5 % adhesive patch,medicated 1 patch topical DAILY Qty: 30 0RF Rx Instructions: leave on most painful area for up to 12 hrs No Action sucralfate [Carafate] 1 gram tablet 1 g PO QID Qty: 120 12RF docusate sodium 100 mg capsule 100 mg PO TID fluticasone propion-salmeterol [Advair HFA] 230-21 mcg/actuation HFA aerosol inhaler 2 puff inhalation BID albuterol sulfate 90 mcg/actuation HFA aerosol inhaler 2 puff inhalation Q6H PRN cetirizine 10 mg tablet 10 mg PO DAILY PRN clonazepam 0.5 mg tablet 0.5 mg PO DAILY PRN epinephrine 0.3 mg/0.3 mL auto-injector 0.3 mg IM ONCE Rx Instructions: as a single dose; may repeat once potassium chloride [Klor-Con] 20 mEq packet 20 meq PO DAILY Linzess 72 mcg capsule 72 mcg PO DAILY quetiapine 300 mg tablet 300 mg PO QHS Spiriva Respimat 1.25 mcg/actuation mist 2 puff inhalation DAILY Gemtesa 75 mg tablet 75 mg PO DAILY Qty: 30 1RF acetaminophen [Tylenol Extra Strength] 500 mg tablet 500 mg PO Q6H PRN dexlansoprazole [Dexilant] 30 mg capsule,biphase delayed releas 30 mg PO DAILY Qty: 30 6RF lithium carbonate 300 mg tablet extended release 300 mg PO HS Patient Comments: TAKE 1 TABLET BY MOUTH IN THE EVENING sumatriptan succinate 50 mg tablet 50 mg PO ONCE PRN Patient Comments: TAKE ONE TABLET BY MOUTH AT ONSET OF HEADACHE, MAY REPEAT IN TWO HOURS IF NECESSARY NOT TO EXCEED 2 TABLETS IN 24 HOURS Januvia 100 mg tablet 100 mg PO DAILY Patient Comments: TAKE ONE TABLET BY MOUTH EVERY DAY IN THE MORNING cholecalciferol (vitamin D3) 50 mcg (2,000 unit) capsule 50 mcg PO DAILY Patient Comments: TAKE TWO CAPSULES BY MOUTH EVERY DAY bupropion HCl 300 mg tablet extended release 24 hr 150 mg PO DAILY escitalopram oxalate 20 mg tablet 20 mg PO DAILY AM Patient Comments: TAKE 1 TABLET BY MOUTH ONCE DAILY midodrine 2.5 mg tablet 2 tab PO TID Patient Comments: TAKE 2 TABLETS BY MOUTH THREE TIMES DAILY Discharge Instructions Instructions: Shoulder Pain ED Additional Instructions: You were seen in the emergency department today for evaluation of shoulder pain and tingling of your right arm. In our department a full physical examination performed, had an x-ray that did not show any sign of fracture, dislocation, or other concerning abnormalities, and received medications for your pain. You likely are experiencing pain in your rotator cuff as well as irritation of the nerves that supply your arm. The mainstays of treatment for this condition are pain management with lidocaine, ibuprofen, and Tylenol, gentle range of motion exercises to keep the shoulder loose and limber, and follow-up with your primary care provider as well as physical therapy. He can take some time for the pain and tingling to improve. If you have worsening of your symptoms, you should call your primary care provider or return to the emergency department. Thank you for allowing us to be part of your care. Stand Alone Forms: Work Release Referrals: [facility] Physical Therapy [Provider Group] - 1 week [facility] General Date/Time Provider Initiated Documentation: 02/01/24 22:24. Limitations to Documentation: no limitations. Information obtained by: patient and old records reviewed. HPI Narrative: HPI: This is a 48-year-old female patient with a past medical history significant for GERD, type 2 diabetes, asthma and depression who is presenting for evaluation of arm tingling and shoulder pain. The patient reports that for the last 4 days she has noticed a sensation of [id number]-ivb-xemwnwu in her right arm, like she fell asleep on it. She reports that she also has pain in the posterior aspect of her right shoulder. States that she has not sustained trauma, does not use heavy lifting or over the head activities frequently. Has no prior history of injury or surgery to that shoulder. Reports that her strength feels preserved, though she does have reproduction of her pain when she moves her shoulder in any direction except for internal rotation. States that she is not experiencing any neck pain, chest pain, headache. Has not noted any symptoms in any other area of her body. Has been using Tylenol and ibuprofen as well as Aspercreme at home without significant improvement. Exam: Gen: Awake and alert, in no apparent distress HEENT: Non-icteric sclera Neck: Supple, no midline cervical spine tenderness to palpation, no paraspinal muscle tenderness, full range of motion Lungs: No apparent respiratory distress, normal respiratory effort. CV: Appears well perfused, strong distal pulses Abdomen: Non-distended MSK: The patient's right shoulder is tender to palpation at the posterior aspect of the shoulder capsule. She does have full range of motion, with reproduction of pain at the extremes of flexion, abduction, and external rotation against resistance. Internal rotation is without reproduction of pain. The patient endorses subjective tingling along her right upper extremity, no sensory loss. She has full strength distal to this injury, and full range of motion of her wrist, fingers, and elbow. Skin: Visualized skin without rashes, cyanosis. No skin changes overlying the affected extremity Neuro: Normal Gait, no obvious focal deficits or facial asymmetry. Speaks in full, clear sentences. Psych: Appropriate for situation. MDM: This is a 48-year-old female patient presenting for evaluation of right shoulder pain. My differential includes but is not limited to rotator cuff injury, cervical radiculopathy, nerve palsy, certainly considered fracture and dislocation though the patient is without injury to suggest same. Considered tendinitis, bursitis, osteoarthritis. Examination is less concerning for septic arthritis or crystalopathy. We will provide the patient with a dose of Tylenol, lidocaine patch, and obtain an x-ray to evaluate for acute injury. ED Course: I independently interpreted the patient's x-ray, which shows no evidence of fracture or dislocation to account for her symptoms. We discussed the hallmarks of care for acute shoulder pain as well as potential radiculopathy, including multimodal pain management, gentle range of motion exercises, and follow-up with primary care and physical therapy. I did provide the patient with a referral to physical therapy, and a prescription for lidocaine patches. Given her lack of weakness and true sensory loss she does not meet criteria for urgent surgical evaluation. At this time, the patient has had a full medical evaluation and is safe for discharge to home. They are hemodynamically stable, ambulatory, and tolerating PO. They are understanding of the follow-up plan and return precautions. They left our facility without incident. Rebeca Galdamez MD Related Data Home Medications ?Medication ?Instructions ?Recorded ?Confirmed cholecalciferol (vitamin D3) 50 50 mcg PO DAILY 02/14/21 12/26/23 mcg (2,000 unit) capsule escitalopram oxalate 20 mg tablet 20 mg PO DAILY AM 11/12/21 12/26/23 midodrine 2.5 mg tablet 2 tab PO TID 11/12/21 12/26/23 lithium carbonate 300 mg 300 mg PO HS 03/19/22 12/26/23 tablet,extended release bupropion HCl 300 mg 24 hr tablet, 150 mg PO DAILY 09/13/22 12/26/23 extended release albuterol sulfate 90 mcg/actuation 2 puff inhalation Q6H PRN 05/01/23 12/26/23 aerosol inhaler cetirizine 10 mg tablet 10 mg PO DAILY PRN 05/01/23 12/26/23 clonazepam 0.5 mg tablet 0.5 mg PO DAILY PRN 05/01/23 12/26/23 epinephrine 0.3 mg/0.3 mL 0.3 mg IM ONCE 05/01/23 12/26/23 injection, auto-injector fluticasone propionate 230 2 puff inhalation BID 05/01/23 12/26/23 mcg-salmeterol 21 mcg/actuation HFA inhaler (Advair HFA) linaclotide 72 mcg capsule 72 mcg PO DAILY 05/01/23 12/26/23 (Linzess) potassium chloride 20 mEq oral 20 meq PO DAILY 05/01/23 12/26/23 packet (Klor-Con) quetiapine 300 mg tablet 300 mg PO QHS 05/01/23 12/26/23 tiotropium bromide 1.25 2 puff inhalation DAILY 05/01/23 12/26/23 mcg/actuation mist for inhalation (Spiriva Respimat) docusate sodium 100 mg capsule 100 mg PO TID 08/13/23 12/26/23 sucralfate 1 gram tablet (Carafate) 1 g PO QID #120 tabs 08/13/23 12/26/23 acetaminophen 500 mg tablet 500 mg PO Q6H PRN 09/06/23 12/26/23 (Tylenol Extra Strength) dexlansoprazole 30 mg 30 mg PO DAILY #30 caps 09/06/23 12/26/23 capsule,biphase delayed release (Dexilant) sitagliptin phosphate 100 mg 100 mg PO DAILY 12/26/23 12/26/23 tablet (Januvia) sumatriptan succinate 50 mg tablet 50 mg PO ONCE PRN 12/26/23 12/26/23 vibegron 75 mg tablet (Gemtesa) 75 mg PO DAILY #30 tabs 01/09/24 01/09/24 lidocaine 5 % topical patch 1 patch topical DAILY #30 ea 02/01/24 Previous Rx's ?Medication ?Instructions ?Recorded sucralfate 1 gram tablet (Carafate) 1 g PO QID #120 tabs 08/13/23 dexlansoprazole 30 mg 30 mg PO DAILY #30 caps 09/06/23 capsule,biphase delayed release (Dexilant) vibegron 75 mg tablet (Gemtesa) 75 mg PO DAILY #30 tabs 01/09/24 lidocaine 5 % topical patch 1 patch topical DAILY #30 ea 02/01/24 Allergies Allergy/AdvReac Type Severity Reaction Status Date / Time venom-honey bee Allergy Severe Other (See Verified 12/26/23 23:17 Comment) Sulfa (Sulfonamide Allergy HIVES Verified 12/26/23 23:17 Antibiotics) General Stated Complaint: Orthopedic MIKE: 4 Course Vital Signs Vital signs: Vital Signs Temperature 36.5 C 02/01/24 22:29 Pulse 79 02/01/24 22:29 Respiratory Rate 16 02/01/24 22:29 Blood Pressure 147/67 H 02/01/24 22:29 Pulse Oximetry 98 02/01/24 22:29 Temperature 36.5 C 02/01/24 22:29 Temperature Source Temporal Artery Scan 02/01/24 22:29 Pulse 79 02/01/24 22:29 Respiratory Rate 16 02/01/24 22:29 Respiratory Effort Normal, Non-Labored 02/01/24 22:37 Blood Pressure 147/67 H 02/01/24 22:29 Pulse Oximetry 98 02/01/24 22:29 Oxygen Delivery Method Room Air 02/01/24 22:29 Oxygen Flow Rate 0 02/01/24 22:29 Pain Level 5 02/01/24 22:29 Medical Decision Making Quality:SDOH Health Related Social Needs: No Data to Display PFSH All Active Problems (Updated 02/01/24 @ 23:19 by Rebeca Galdamez MD) Tingling of right upper extremity (Acute) Acute pain of right shoulder (Acute) Rectal bleeding (Acute) Suprapubic pain (Acute) Hiatal hernia with GERD (Acute) Chronic erosive gastritis (Acute) Bipolar 2 disorder (Chronic) Type 2 diabetes mellitus with peripheral neuropathy (Acute) Chest pain, unspecified (Acute) Anxiety (Chronic) Psychologic conversion disorder (Acute) Urinary incontinence (Acute) Seasonal affective disorder (Acute) Tinea pedis (Acute) Onychomycosis (Acute) PVD (peripheral vascular disease) (Chronic) Nail dystrophy (Acute) Type 2 diabetes mellitus (Chronic) Shortness of breath (Acute) Muscle pain (Acute) Atypical chest pain (Acute) GERD (gastroesophageal reflux disease) (Chronic) Nausea and vomiting in adult (Acute) Abnormal CT of the abdomen (Acute) N&V (nausea and vomiting) (Acute) Hypokalemia (Acute) Right lower quadrant abdominal pain (Acute) Gastroesophageal reflux disease (Chronic) Asthma (Chronic) Depression (Chronic) Takes Fluoxetine 20mg QD with good impact on her depression, denies any SI. Encouraged to continue. to try to tame a riccode. Medical History RLQ abdominal tenderness Pre-syncope Orthostatic hypotension Nonspecific paroxysmal spell Dizziness Vertigo Gallstones without obstruction of gallbladder Calculus of gallbladder with chronic cholecystitis without obstruction Pacemaker Gestational diabetes mellitus High ankle sprain of right lower extremity Acne (04/21/13) Back pain Taking prednisone 60mg QD for 4 days. Currently on day 2. Not feeling it is making much of a difference but she was encouraged to take for the full 4 days. Also suggested she take the muscle relaxer only PRN as it makes her quite drowsy. Encouraged to take at night. To help with rest. Other valenzuela, suggested she increse Aleve to AM & PM dose, then supplement with 1000mg Acetaminophen every 4-6 hours up to a total of 4000mg/day. Suggested ice might help more than heat but either should be limited to only 20 minutes at a time. Use topicals (Solopas Gel or Aspercreame with Lidocaine seem to be quite helpful. Try to avoid sitting or standing still for prolonged periods of time. Walking on flat ground is encourage. Surgical History History of cholecystectomy (~03/2019) History of esophagogastroduodenoscopy (EGD) (~07/2022) History of hysterectomy History of bilateral ligation of fallopian tubes History of discectomy Status post dilation and curettage S/P endometrial ablation irregular bleeding has restarted, neg EM bx 01/2016 discectomy (~2003) Ligation of fallopian tube Endometrial Ablation (~2009) Dilation and curettage X 2 with losses ANAL SURGERY surgical drainage of anal fissure Family History Mother Hyperlipidemia Thyroid disorder Father Essential hypertension Diabetes Personal history of malignant neoplasm prostate Heart disease Hyperlipidemia Myocardial infarction Social History Smoking/Tobacco Use Status: Former Tobacco Use Quit Date: 04/02/22 Tobacco: How many years used: 20 Smoking risk assessment performed?: Yes Alcohol Intake: never Drug use: Never Substance use type: does not use Household members: family and other Details: Lives with demented mother and her brother Housing: house 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
--- OUTSIDE RECORDS SUMMARY | 2024-02-01 22:46 | XMS_ITS | Encounter Summary ---
Author Organization [facility] [place] [address] Care Team Providers Care Services Delivery Driver Name Role Phone Gertrudis Li APRN Primary Care Provider Reason for Referral * Consultation (Routine) - Closed Specialty Diagnoses / Procedures Referred By Contact Referred To Contact Electrophysiology / Cardiology Diagnoses Personal history of other diseases of circulatory system Syncopal episode Sat, evaluated @[facility] h/o syncope & collapse over the yrs, loop recorder in place. ?POTS syndrome. Previously followed in [facility] Gertrudis Li APRN [address] [place] [address] [facility] [address] [place] [id number] Referral ID Status Reason Start Date Expiration Date V isits Requested Visits Authorized [id number] Closed Consult, Test & Treat PCP Updated and/or Approved 05/21/2023 05/20/2024 6 6 Encounter Details Date Type Department Care Team (Latest Contact Info) Description 05/24/2023 Transcribe Orders eD Incoming Referrals [phone] Gertrudis Li APRN [address] [place], [place] [id number] Personal history of other diseases of circulatory [...] Care Team (Late st Contact Info) Description 02/12/2024 11:[address] [facility] Hospital Encounter Non[place] [address] Arrived Scheduled Referrals Name Type Priority Associated Diagnoses Order Schedule Referral to Cardiac Electrophysiology Outpatient Referral Routine Personal history of other diseases of circulatory system Ordered: 05/24/2023 documented as of this encounter Visit Diagnoses Diagnosis Personal history of other diseases of circulatory system documented in this encounter Care Teams Services Delivery Driver Relationship Specialty Start Date End Date Gertrudis Li, [place] [place] [address] PCP - General Family Medicine 05/24/23 documented as of this encounter
--- OUTSIDE RECORDS SUMMARY | 2024-02-01 22:46 | XMS_ITS | Encounter Summary ---
[place] [address] Care Team Providers Care Custom Tailor Name Role Phone Gertrudis Li PABLO Primary Care Provider [phone] Reason for Visit * Reason Onset Date Comments Referral 09/19/2023 Syncope and Collapse 09/19/2023 Encounter Details Date Type Department Care Team (Late st Contact Info) Description 09/19/2023 Telephone Cardiology at [address] [phone] Griselda Houser, usability specialist; Syncope and Collapse Social History Tobacco Use [...] were not included. Heart [facility] Vascular Clinics [facility] [address] [place] [id number] ----- Message from Susie Bales sent at 09/19/2023 2:42 PM EDT ----- Referral and Office Note scanned and indexed. Janessa is referred to this Cardiology clinic in [place]. She has an implanted loop recorder. Details of product not included with the referral. She previously with a tufting machine operator in [place], [place]. With phone call to Janessa, determined per her history that the device is a Medtronic product that was implanted by Dr. Crowe in 2020 at [facility]. [facility]: Most recent device transmission Procedure report ILR and product information for Medtronic device Most recent office visit note with Dr. Crowe [facility] & P Most recent echocardiogram, EKG, and stress testing Plan: Schedule Janessa for an appointment with Dr. Loredo or Dr. Call at this [facility]. documented in this encounter Plan of Treatment Upcoming Encounters Date Type Department Care Team (Late st Contact Info) Description 02/12/2024 11:00 AM [facility] Hospital Encounter Non-Invasive [place] [address] Arrived documented as of this encounter Visit Diagnoses Not on filedocumented in this encounter Care Teams Custom Tailor Relationship Specialty Start Date End Date Gertrudis Li [place] [place] [address] PCP - General Family Medicine 05/24/23 documented as of this encounter
--- OUTSIDE RECORDS SUMMARY | 2024-02-01 22:46 | XMS_ITS | Encounter Summary ---
Author Organization [facility] [place] [address] Care Team Providers Care Rail Signal Worker Name Role Phone Gertrudis Li APRN Primary Care Provider [phone] Reason for Visit * Reason Comments Syncope and Collapse Encounter Details Date Type Department Care Team (Late st Contact Info) Description 12/12/2023 11:00 AM EDT Office Visit Cardiology at [address] [place] [address] Austin Loredo MD [facility] [place] [address] Syncope and collapse Social History Tobacco Use [...] Follow Up Patient ID Janessa Covarrubias 1975 [id number] Janessa Covarrubias is referred to the EP clinic by Gertrudis Li APRN Chief Complaint ILR H/o Syncope History This is a 48 y.o. female following up/being seen in clinic for ILR evaluation/prior history of syncope - episodes that have happened since 2019. Her LINQ was implanted 05/2020. She has previously beenfollowed by Cardiology at [facility] She has a past medical history that [...] recorder - previously followed by cardiology in [place] Orthostatic hypotension Nail dystrophy Major depressive disorder, [...] Mental Status: She is alert. The tablet python programmer was unable to make a connection to the implantable loop recorder Impression Janessa Covarrubias is seen in the EP clinic for follow up of her ILR that was implanted for syncope in 2020. She has previously been followed by [facility]. 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 She has never been trialed on fludrocortisone as far as I can tell. Her implantable loop recorder data is currently being sent to [facility], I asked her whether she would like me to request transfer of this day to to the [facility] and device clinic, she said yes. Will [...] may prefer to have follow-up as at [facility] as this is closer. AUSTIN LOREDO MD Cardiac Electrophysiology [facility] [place] 40 minutes were spent preparing to see [...] st Contact Info) Description 02/12/2024 11:00 AM [facility] Encounter Non-[place] [address] Arrived documented as of this encounter Visit Diagnoses Diagnosis Syncope and collapse documented in this encounter Care Teams Rail Signal Worker Relationship Specialty Start Date End Date Gertrudis [place] [address] PCP - General Family Medicine 05/24/23 documented as of this encounter
--- OUTSIDE RECORDS SUMMARY | 2024-02-01 22:46 | XMS_ITS | Encounter Summary ---
[place] [address] Care Team Providers Care Professor Of Family Medicine Name Role Phone Gertrudis Li APRN Primary Care Provider [phone] Encounter Details Date Type Department Care Team (Late st Contact Info) Description 09/19/2023 Abstract Cardiology at [address] [phone] Griselda Houser, RN Pacemaker; Tobacco [...] AM [facility] Encounter [place] [address] Arrived documented as of this encounter Visit Diagnoses Diagnosis Pacemaker Cardiac pacemaker in situ Tobacco use Tobacco use disorder Former cigarette smoker Personal history of tobacco use, presenting hazards to health documented in this encounter Care Teams Professor Of Family Medicine Relationship Specialty Start Date End Date Gertrudis Li [place] [place] [address] PCP - General Family Medicine 05/24/23 documented as of this encounter
--- OUTSIDE RECORDS SUMMARY | 2024-02-01 22:46 | XMS_ITS | Clinical Summary ---
Author Organization [facility] Address [facility] [place] [address] Care Team Providers Care Commodities Broker Name Role Phone Gertrudis Li APRN Primary Care Provider [phone] Allergies Active Allergy Reactions Criticality Noted Date [...] Encounters Date Type Department Care Team Description 01/23/2024 Telephone Cardiology at [address] [phone] Mansi Hatfield 12/28/2023 Interpretation Only [address] [phone] Forrest Barrera MD 12/12/2023 11:00 AM EDT Office Visit Cardiology at [address] [phone] Austin Loredo MD Syncope and collapse 12/11/2023 Abstract Cardiology at [address] [place] [address] Ashleigh Aviles RN from Last 3 Months Immunizations Name Administration Dates Next Due Influenza Vaccine, Whole 02/16/2005 Td Adult (not absorbed) 04/11/2005 Social History Tobacco Use Types Packs/Day [...] st Contact Info) Description 02/12/2024 11:00 AM EST Hospital Encounter [place] [phone] Arrived Health Maintenance Due Date Last Done [...] 12/02/2023 02/16/2005 Medical Devices Implanted Type Area Mental Health Worker Device Identifier Shelf Expiration Date Model / Serial / Lot Implantable Loop Recorder-05/25 Implanted: (Quantity not on file) Implantable Loop Recorder Subcutaneous [employer] [id number] / [id number] / Procedures Procedure Name Priority Date/Time Associated Diagnosis Comments XR CHEST ONE VIEW STAT 12/28/2023 11: 19 PM EDT from Last 3 Months Results * XR Chest One View (12/28/2023 11:19 PM EDT) PT CLASS E RAD ADMITDTTM [id number] RAD PT RAD INFO [id number]^Barrera ^Forrest RAD EXAM DESC XCXR1^XR Chest 1 View^RIS [facility] WORKSTATION ID [id number] [facility] Anatomical Region Laterality Modality Chest N/A Radiographic María ging 12/28/2023 11:1 9 PM EDT Impressions 12/28/2023 11:34 PM EDT No acute cardiopulmonary process. Thank you for letting us participate in the care of this patient. ??If you are a health care provider and have any questions regarding this report, please contact the number below. ??For patients who have questions please contact the health physician assistant primary care that requested your imaging first. ? Narrative 12/28/2023 11:34 PM EDT EXAMINATION: XR Chest 1 View CLINICAL HISTORY: Chest Pain TECHNIQUE: AP chest COMPARISON: Chest x-ray, May 05, 2023 FINDINGS: Lungs volumes remain slightly low but slightly improved compared to prior study. No focal consolidation, pleural effusion or pneumothorax. The cardiomediastinal silhouette and pulmonary vasculature are normal. A left anterior chest wall monitor device remains in place. No acute osseous findings. Procedure Note Erin Cerda MD - 12/28/2023 EXAMINATION: XR Chest 1 View CLINICAL HISTORY: Chest Pain TECHNIQUE: AP chest COMPARISON: Chest x-ray, May 05, 2023 FINDINGS: Lungs volumes remain slightly low but slightly improved compared to priorstudy. No focal consolidation, pleural effusion or pneumothorax. Thecardiomediastinal silhouette and pulmonary vasculature are normal. A left anterior chestwall monitor device remains in place. No acute osseous findings. IMPRESSION No acute cardiopulmonary process. Thank you for letting us participate in the care of this patient. If youare a health care provider and have any questions regarding this report,please contact the number below. For patients who have questions please contactthe health physician assistant primary care that requested your imaging first. Forrest Barrera MD IMG DX ORDERABLES from Last 3 Months Care Teams Commodities Broker Relationship Specialty Start Date End Date Gertrudis Li, PABLO [address] [place] [address] PCP - General Family Medicine 05/24/23
--- OUTSIDE RECORDS SUMMARY | 2024-02-01 22:46 | XMS_ITS | Encounter Summary ---
[place] [address] Care Team Providers Care Credit Control Assistant Name Role Phone Gertrudis Li APRN Primary Care Provider [phone] Encounter Details Date Type Department Care Team (Late st Contact Info) Description 05/17/2005 [place] [address] Chadwick Epps MD [place], [place] Social History Tobacco Use Types Packs/Day [...] AM EST Hospital Encounter Non-Invasive [place] [address] Arrived documented as of this encounter Procedures Procedure Name Priority Date/Time Associated Diagnosis Comments SURGICAL PATHOLOGY REPORT Routine 05/17/2005 8:54 PM EST documented in this encounter Results * Surgical Pathology Report (05/17/2005 8:54 PM EST) Surgical Pathology Report [id number] ? Location: The signing pathologist has (i) [...] report in rendering the final pathologic diagnosis. [facility] 05/17/2005 8:54 PM EST Chadwick Epps MD PATHOLOGY/CYTOLOGY [facility] documented in this encounter Visit Diagnoses Not on filedocumented in this encounter Care Teams Credit Control Assistant Relationship Specialty Start Date End Date Gertrudis Li APRN [address] [place] [address] PCP - General Family Medicine 05/24/23 documented as of this encounter
--- OUTSIDE RECORDS SUMMARY | 2024-02-01 22:46 | XMS_ITS | Encounter Summary ---
[place] [address] Care Team Providers Care Apartment Maintenance Name Role Phone Travis Maya PABLO Primary Care Provider [phone] Encounter Details Date Type Department Care Team (Late st Contact Info) Description 05/05/2023 Interpretation Only [address] [phone] Jean Carlos Gallegos MD [address] [address] Social History Tobacco Use Types Packs/Day Years [...] AM EST Hospital Encounter [place] [address] Arrived documented as of this encounter Procedures Procedure Name Priority Date/Time Associated Diagnosis Comments XR CHEST ONE VIEW STAT 05/05/2023 6:3 8 PM EST documented in this encounter Results * XR Chest One View (05/05/2023 6:38 PM EST) PT CLASS E DH RAD ADMITDTTM [id number] DH RAD PT DH RAD INFO [id number]^El ^Jean Carlos^Abdon RAD EXAM DESC XCXR1^XR Chest [...] who have questions please contact the health care management associate that requested your imaging first. ? Narrative [...] patients who have questions please contactthe health care management associate that requested your imaging first. Jean Carlos Gallegos MD IMG DX ORDERABL ES documented in this encounter Visit Diagnoses Not on filedocumented in this encounter Care Teams Apartment Maintenance Relationship Specialty Start Date End Date Travis Maya, PABLO [address] [place] [address] PCP - General 02/22/10 05/23/23 documented as of this encounter
--- OUTSIDE RECORDS SUMMARY | 2024-02-01 22:46 | XMS_ITS | Encounter Summary ---
[place] [address] Care Team Providers Care Bull Bucker Name Role Phone Gertrudis Li APRN Primary Care Provider [phone] Reason for Visit * Reason Onset Date Comments Other 01/23/2024 Encounter Details Date Type Department Care Team (Late Contact Info) Description 01/23/2024 Telephone Cardiology at [address] [address] Mansi Hatfield Other Social History Tobacco Use Types Packs/Day Years Used Date Smoking Tobacco: Former Cigarettes Q uit: 1990 Smokeless Tobacco: Never Sex and Gender Information Value Date Recorded Sex Assigned at Not on file Gender Identity Not on file Sexual Orientation Not on file documented as of this encounter Miscellaneous Notes * Telephone Encounter - Mansi Hatfield - 01/23/2024 12:29 PM EDT Spoke to patient and let her know the battery in her ILR is depleted and she was not being remote monitored. I told her she can have the ILR extracted or she can abandon it. I told her if she wishes to have it explanted to call me and I will start the process. documented in this encounter Plan of Treatment Upcoming Encounters Date Type Department Care Team (Late st Contact Info) Description 02/12/2024 11:00 AM EST Hospital Encounter [place] [address] Arrived documented as of this encounter Visit Diagnoses Not on filedocumented in this encounter Care Teams Bull Bucker Relationship Specialty Start Date End Date Gertrudis Li, RATE EXAMINER [facility] [address] PCP - General Family Medicine 05/24/23 documented as of this encounter
--- OUTSIDE RECORDS SUMMARY | 2024-02-01 22:46 | XMS_ITS | Encounter Summary ---
[place] [address] Care Team Providers Care Storage Engineer Name Role Phone Gertrudis Li APRN Primary Care Provider [phone] Encounter Details Date Type Department Care Team (Late Contact Info) Description 12/28/2023 Interpretation Only [address] [address] Forrest Barrera MD [address] [place] [address] Social History Tobacco Use Types Packs/Day Years Used Date Smoking Tobacco: Former Cigarettes Q uit: 1990 Smokeless Tobacco: Never Sex and Gender Information Value Date Recorded Sex Assigned at Not on file Gender Identity Not on file Sexual Orientation Not on file documented as of this encounter Plan of Treatment Upcoming Encounters Date Type Department Care Team (Late Contact Info) Description 02/12/2024 11:00 AM EST Hospital Encounter Non[place] [address] Arrived documented as of this encounter Procedures Procedure Name Priority Date/Time Associated Diagnosis Comments XR CHEST ONE VIEW STAT 12/28/2023 11: 19 PM EDT documented in this encounter Results * XR Chest One View (12/28/2023 11:19 PM EDT) PT CLASS E DH RAD ADMITDTTM [id number] RAD PT PENNY DAS INFO [id number]^Bruce ^Forrest FRANCIS EXAM DESC XCXR1^XR Chest 1 View^RIS RAD WORKSTATION ID [id number] [facility] Anatomical Region Laterality Modality Chest N/A [...] have questions please contact the health career and technology education teacher that requested your imaging first. ? Electronically signed by: Erin Cerda MD, [facility] ([phone]), at 12/28/2023 11:34 PM Narrative 12/28/2023 11:34 PM EDT EXAMINATION: XR [...] who have questions please contactthe health career and technology education teacher that requested your imaging first. Forrest Barrera MD IMG DX ORDERABLES documented in this encounter Visit Diagnoses Not on filedocumented in this encounter Care Teams Storage Engineer Relationship Specialty Start Date End Date Gertrudis Li, FLAT BED [place] [address] PCP - General Family Medicine 05/24/23 documented as of this encounter
--- OUTSIDE RECORDS SUMMARY | 2024-02-01 22:46 | XMS_ITS | Encounter Summary ---
Author Organization [facility] [place] [address] Care Team Providers Care Taker Away Name Role Phone Gertrudis Li PABLO Primary Care Provider [phone] Reason for Referral * Surgical (Routine) - Authorized Specialty Diagnoses / Procedures Referred By Jo perry Referred To Contact Gastroenterology Diagnoses Heartburn ESOPHAGEAL REFLUX AND MOTILITY Eunice Erazo DO [address] [place] [address] [address] [place] [address] [facility] Endoscopy [address] [place] [address] Referral ID Status Reason Start Date Expiration Date Visits Requested Visits Authorized [id number] Authorized Test Only PCP Updated and/or Approved 10/15/2023 10/14/2024 1 1 Encounter Details Date Type Department Care Team (Late st Contact Info) Description 10/15/2023 Transcribe Orders eDH Incoming Referrals [phone] [place] [address] [place] [address] [address] [place], [place] [id number] Heartburn Social History Tobacco Use Types Packs/Day [...] AM EST Hospital Encounter Non-Invasive [place] [address] Arrived Scheduled Referrals Name Type Priority Associated Diagnoses Orde r Schedule REFERRAL TO ENDOSCOPY PROCEDURE Outpatient Referral Routine Heartburn Ordered: 10/15/2023 documented as of this encounter Visit Diagnoses Diagnosis Heartburn documented in this encounter Care Teams Taker Away Relationship Specialty Start Date End Date Gretrudis Li, TRAINING DEVELOPMENT MANAGER [place] [place] [address] PCP - General Family Medicine 05/24/23 documented as of this encounter
--- OUTSIDE RECORDS SUMMARY | 2024-02-01 22:46 | XMS_ITS | Encounter Summary ---
[place] [address] Care Team Providers Care Dry Can Tender Name Role Phone Gertrudis Li GAME MASTER Primary Care Provider [phone] Encounter Details Date Type Department Care Team (Late st Contact Info) Description 12/11/2023 Abstract Cardiology at [address] [address] Ashleigh Aviles RN Social History [...] st Contact Info) Description 02/12/2024 11:00 AM [facility] Hospital Encounter Non-Invasive [place] [address] Arrived documented as of this encounter Visit Diagnoses Not on filedocumented in this encounter Care Teams Dry Can Tender Relationship Specialty Start Date End Date Gertrudis Li [place] [address] [place] [address] PCP - General Family Medicine 05/24/23 documented as of this encounter
--- OUTSIDE RECORDS SUMMARY | 2024-02-01 22:46 | XMS_ITS | Encounter Summary ---
[place] [address] Care Team Providers Care College Admissions Counselor Name Role Phone Travis Maya PABLO Primary Care Provider [phone] Encounter Details Date Type Department Care Team (Late st Contact Info) Description 05/05/2023 Interpretation Only [address] [phone] Jean Carlos Gallegos MD [address] [address] Social History Tobacco Use Types Packs/Day Years [...] AM EST Hospital Encounter [place] [address] Arrived documented as of this encounter Procedures Procedure Name Priority Date/Time Associated Diagnosis Comments CT HEAD WO CONTRAST (GENERIC) STAT 05/05/2023 6:53 PM EST documented in this encounter Results * CT Head wo Contrast (Generic) (05/05/2023 6:53 PM EST) PT CLASS E RAD ADMITDTTM [id number] RAD PT RAD INFO [id number]^El ^Christopher^Abdon RAD EXAM DESC CTHEAD^CT Head w/o [...] who have questions please contact the health complex care nurse practitioner that requested your imaging first. ? Narrative [...] patients who have questions please contactthe health complex care nurse practitioner that requested your imaging first. Jean Carlos Gallegos MD IMG CT ORDERABL ES documented in this encounter Visit Diagnoses Not on filedocumented in this encounter Care Teams College Admissions Counselor Relationship Specialty Start Date End Date Travis Maya, ENERGY AUDITOR [address] [place] [address] PCP - General 02/22/10 05/23/23 documented as of this encounter
[2024-02-01] MEDS: Lidocaine 5% Patch 1 PATCH TP (22:51)
[2024-02-01] MEDS: Acetaminophen 500 MG TAB 1000 MG PO (22:51)
--- NOTE | 2024-02-01 23:59 | DI.VRAD_ITS ---
PROCEDURE INFORMATION: Exam: XR Right Shoulder Exam date and time: 02/01/2024 10:59 PM Age: 48 years old Clinical indication: Pain; Shoulder; Right; Additional info: Pain posterior, tingling in arm TECHNIQUE: Imaging protocol: Radiologic exam of the right shoulder. Views: 2 or more views. COMPARISON: CR RIGHT SHOULDER COMPLETE 09/07/2017 1:53 PM FINDINGS: Bones/joints: No dislocation is identified. There is some flattening, irregularity, and sclerosis to the lateral aspect of the humeral head, slightly increased from prior examination (series 3). This change in appearance may be due to differences in positioning but should be correlated with any concern for acute or subacute Hill-Sachs deformity or an inflammatory process. If there is clinical concern for an abnormality in this region or if symptoms remain concerning, MRI could be considered. There are degenerative changes to the right AC joint. Soft tissues: No unusual soft tissue calcifications. IMPRESSION: 1. No dislocation identified. 2. There is some flattening, irregularity, and sclerosis to the lateral aspect of the humeral head, slightly increased from prior examination (series 3). This change in appearance may be due to differences in positioning but should be correlated with any concern for acute or subacute Hill-Sachs deformity or an inflammatory process. If there is clinical concern for an abnormality in this region or if symptoms remain concerning, MRI could be considered. 3. Other findings/details as above. Dictated and Authenticated by: Debbi Alexander MD. Ordering:CHRISTY Tinsley MD
== END 2024-02-01 23:28 | disposition home or self-care (01) ==
PROVIDERS: Emergency Provider Emergency Medicine; PCP Nurse Practitioner Family
DX: M25.511 Pain in right shoulder (principal); R20.2 Paresthesia of skin; E11.9 Type 2 diabetes mellitus without complications; F31.81 Bipolar II disorder; Z95.0 Presence of cardiac pacemaker; Z79.899 Other long term (current) drug therapy; Z87.891 Personal history of nicotine dependence
CPT/HCPCS: 99283; 73030

== ENCOUNTER 2024-02-22 08:13 | Emergency (ER) | payer MEDICARE, MEDICAID, SELFPAY ==
[2024-02-22] VITALS (32 sets, daily range): BP systolic 132–165; BP diastolic 52–87; PULSE 61–93; RESP 13–22; TEMP 35.7–36.8; O2SAT 95–98
--- NOTE | 2024-02-22 08:00 | RT.EKG_ITS ---
APPROVED REPORT Exam: Resting ECG Reason for Exam: Dizziness Patient Location: E HR:69 bpm ECG Measurements Heart Rate 69 AXIS [place] 151 P 60 QRSd 88 QRS 15 QT 410 T 28 QTc 441 Conclusion Sinus rhythm...normal P axis, V-rate 60- 99 Low voltage, precordial leads...precordial leads <1.0mV
--- OUTSIDE RECORDS SUMMARY | 2024-02-22 08:20 | XMS_ITS | Clinical Summary ---
Author Organization [facility] Address [facility] [place] [address] Care Team Providers Care Slope Runner Name Role Phone Gertrudis Li APRN Primary Care Provider [phone] Allergies Active Allergy Reactions Criticality Noted Date [...] Care Team Description 01/23/2024 Telephone Cardiology at [address] [phone] Mansi Hatfield 12/28/2023 Interpretation Only [address] [phone] Forrest Barrera MD 12/12/2023 11:00 AM EDT Office Visit Cardiology at [address] [phone] Austin Loredo MD Syncope and collapse 12/11/2023 Abstract Cardiology at [address] [place] [address] Ashleigh Aviles RN from Last [...] Care Team (Late st Contact Info) Description 03/13/2024 11:00 AM EST Hospital Encounter Non-Invasive [place] [phone] Arrived Health Maintenance Due Date Last Done [...] 12/02/2023 02/16/2005 Medical Devices Implanted Type Area Artists' Booking Representative Device Identifier Shelf Expiration Date Model / Serial / Lot Implantable Loop Recorder-05/25 Implanted: (Quantity not on file) Implantable Loop Recorder Subcutaneous [employer] [id number] / [id number] / Procedures Procedure Name Priority Date/Time Associated Diagnosis Comments XR CHEST ONE VIEW STAT 12/28/2023 11: 19 PM EDT from Last 3 Months Results * XR Chest One View (12/28/2023 11:19 PM EDT) PT CLASS E RAD ADMITDTTM [id number] RAD PT RAD INFO [id number]^Barrera ^Forrest RAD EXAM DESC XCXR1^XR Chest 1 View^RIS [facility] WORKSTATION ID [id number] [facility] Anatomical Region Laterality Modality Chest [...] who have questions please contact the health director of medicare that requested your imaging first. ? Electronically signed by: Erin Cerda MD, [facility] ([phone]), at 12/28/2023 11:34 PM Narrative 12/28/2023 11:34 [...] patients who have questions please contactthe health director of medicare that requested your imaging first. Forrest Barrera MD IMG DX ORDERABLES from Last 3 Months Care Teams Slope Runner Relationship Specialty Start Date End Date Gertrudis Li, PABLO [address] [place] [address] PCP - General Family Medicine 05/24/23
--- OUTSIDE RECORDS SUMMARY | 2024-02-22 08:20 | XMS_ITS | Encounter Summary ---
Author Organization [facility] [place] [address] Care Team Providers Care Euclid Operator Name Role Phone Gertrudis Li APRN Primary Care Provider [phone] Reason for Visit * Reason Comments Syncope and Collapse Encounter Details Date Type Department Care Team (Late st Contact Info) Description 12/12/2023 11:00 AM EDT Office Visit Cardiology at [address] [place] [address] Austin Loredo MD [facility] [place] [address] Syncope and collapse Social History Tobacco Use [...] Follow Up Patient ID Janessa Covarrubias 1975 [id number] Janessa Covarrubias is referred to the EP clinic by Gertrudis Li APRN Chief Complaint ILR H/o Syncope History This is a 48 y.o. female following up/being seen in clinic for ILR evaluation/prior history of syncope - episodes that have happened since 2019. Her LINQ was implanted 05/2020. She has previously beenfollow[facility] at [facility] She has a past [...] recorder - previously followed by cardiology in [place], [place] Orthostatic hypotension Nail dystrophy Major depressive disorder, [...] Mental Status: She is alert. The tablet associate programmer was unable to make a connection to the implantable loop recorder Impression Janessa Covarrubias is seen in the EP clinic for follow up of her ILR that was implanted for syncope in 2020. She has previously been followed by [facility]. 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 She has never been trialed on fludrocortisone as far as I can tell. Her implantable loop recorder data is currently being sent to [facility], I asked her whether she would like me to request transfer of this day to to the [facility], she said yes. [...] may prefer to have follow-up as at [facility] as this is closer. AUSTIN LOREDO MD Cardiac Electrophysiology [facility] [place] 40 minutes were spent preparing to see [...] st Contact Info) Description 03/13/2024 11:00 AM [facility] Hospital Encounter Non-Invasive [place] [address] Arrived documented as of this encounter Visit Diagnoses Diagnosis Syncope and collapse documented in this encounter Care Teams Euclid Operator Relationship Specialty Start Date End Date Gertrudis Li APR[place] [address] PCP - General Family Medicine 05/24/23 documented as of this encounter
--- OUTSIDE RECORDS SUMMARY | 2024-02-22 08:20 | XMS_ITS | Encounter Summary ---
Author Organization [place] [address] Care Team Providers Care Auto Parts Handler Name Role Phone Gertrudis Li PABLO Primary Care Provider [phone] Reason for Referral * Surgical (Routine) - Authorized Specialty Diagnoses / Procedures Referred By Jo perry Referred To Contact Gastroenterology Diagnoses Heartburn ESOPHAGEAL REFLUX AND MOTILITY Eunice Erazo DO [address] [place] [address] [address] [place] [address] [facility] Endoscopy [address] [place] [address] Referral ID Status Reason Start Date Expiration Date Visits Requested Visits Authorized [id number] Authorized Test Only PCP Updated and/or Approved 10/15/2023 10/14/2024 1 1 Encounter Details Date Type Department Care Team (Late st Contact Info) Description 10/15/2023 Transcribe Orders eDH Incoming Referrals [phone] [place] [address] [place] [address] [address] [place], [place] [id number] Heartburn Social History Tobacco Use Types Packs/Day [...] AM EST Hospital Encounter Non-[place] [address] Arrived Scheduled Referrals Name Type Priority Associated Diagnoses Orde r Schedule REFERRAL TO ENDOSCOPY PROCEDURE Outpatient Referral Routine Heartburn Ordered: 10/15/2023 documented as of this encounter Visit Diagnoses Diagnosis Heartburn documented in this encounter Care Teams Auto Parts Handler Relationship Specialty Start Date End Date Gertrudis Li, POWERBUILDER [place] [place] [address] PCP - General Family Medicine 05/24/23 documented as of this encounter
--- OUTSIDE RECORDS SUMMARY | 2024-02-22 08:20 | XMS_ITS | Encounter Summary ---
[place] [address] Care Team Providers Care Procurement Professional Logistics Name Role Phone Gertrudis Li APRN Primary Care Provider [phone] Reason for Visit * Reason Onset Date Comments Other 01/23/2024 Encounter Details Date Type Department Care Team (Late Contact Info) Description 01/23/2024 Telephone Cardiology at [address] [address] Mansi Hatfield Other Social History [...] AM EST Hospital Encounter [place] [address] Arrived documented as of this encounter Visit Diagnoses Not on filedocumented in this encounter Care Teams Procurement Professional Logistics Relationship Specialty Start Date End Date Gertrudis Li, ELECTROSTATIC POWDER COATING TECHNICIAN [facility] [place] [address] PCP - General Family Medicine 05/24/23 documented as of this encounter
--- OUTSIDE RECORDS SUMMARY | 2024-02-22 08:20 | XMS_ITS | Encounter Summary ---
[place] [address] Care Team Providers Care Cover Inspector Name Role Phone Gertrudis Li APRN Primary Care Provider [phone] Encounter Details Date Type Department Care Team (Late st Contact Info) Description 09/19/2023 Abstract Cardiology at [address] [address] Griselda Houser, RN Pacemaker; Tobacco [...] st Contact Info) Description 03/13/2024 11:00 AM [facility] Hospital Encounter Non[place] [address] Arrived documented as of this encounter Visit Diagnoses Diagnosis Pacemaker Cardiac pacemaker in situ Tobacco use Tobacco use disorder Former cigarette smoker Personal history of tobacco use, presenting hazards to health documented in this encounter Care Teams Cover Inspector Relationship Specialty Start Date End Date Gertrudis Li [place] [address] [place] [address] PCP - General Family Medicine 05/24/23 documented as of this encounter
--- OUTSIDE RECORDS SUMMARY | 2024-02-22 08:20 | XMS_ITS | Encounter Summary ---
[place] [address] Care Team Providers Care Forest Fire Management Officer Name Role Phone Travis Maya PABLO Primary Care Provider [phone] Encounter Details Date Type Department Care Team (Late st Contact Info) Description 05/05/2023 Interpretation Only [address] [phone] Jean Carlos Gallegos MD [address] [address] Social History Tobacco Use Types Packs/Day Years [...] AM EST Hospital Encounter [place] [address] Arrived documented as of this encounter Procedures Procedure Name Priority Date/Time Associated Diagnosis Comments CT HEAD WO CONTRAST (GENERIC) STAT 05/05/2023 6:53 PM EST documented in this encounter Results * CT Head wo Contrast (Generic) (05/05/2023 6:53 PM EST) PT CLASS E RAD ADMITDTTM [id number] RAD PT RAD INFO [id number]^El ^Christopher^Abdon RAD EXAM DESC CTHEAD^CT Head w/o [...] who have questions please contact the health rn progressive care that requested your imaging first. ? Electronically signed by: Erin Cerda MD, [facility] ([phone]), at 05/05/2023 7:01 PM Narrative 05/05/2023 7:01 [...] patients who have questions please contactthe health rn progressive care that requested your imaging first. Jean Carlos Gallegos MD IMG CT ORDERABL ES documented in this encounter Visit Diagnoses Not on filedocumented in this encounter Care Teams Forest Fire Management Officer Relationship Specialty Start Date End Date Travis Maya, EMBEDDED SYSTEMS ENGINEER [address] [place] [address] PCP - General 02/22/10 05/23/23 documented as of this encounter
--- OUTSIDE RECORDS SUMMARY | 2024-02-22 08:20 | XMS_ITS | Encounter Summary ---
[place] [address] Care Team Providers Care Barrel Charrer Name Role Phone Travis Maya PABLO Primary Care Provider [phone] Encounter Details Date Type Department Care Team (Late st Contact Info) Description 05/05/2023 Interpretation Only [address] [phone] Jean Carlos Gallegos MD [address] [address] Social History Tobacco Use Types Packs/Day Years [...] AM EST Hospital Encounter Non-Invasive [place] [address] Arrived documented as of this encounter Procedures Procedure Name Priority Date/Time Associated Diagnosis Comments XR CHEST ONE VIEW STAT 05/05/2023 6:3 8 PM EST documented in this encounter Results * XR Chest One View (05/05/2023 6:38 PM EST) PT CLASS E DH RAD ADMITDTTM [id number] DH RAD PT DH RAD INFO [id number]^El ^Jean Carlos^Abdon RAD EXAM DESC XCXR1^XR Chest [...] who have questions please contact the health direct support professional caregiver that requested your imaging first. ? Narrative [...] patients who have questions please contactthe health direct support professional caregiver that requested your imaging first. Jean Carlos Gallegos MD IMG DX ORDERABL ES documented in this encounter Visit Diagnoses Not on filedocumented in this encounter Care Teams Barrel Charrer Relationship Specialty Start Date End Date Travis Maya, PABLO [address] [place] [address] PCP - General 02/22/10 05/23/23 documented as of this encounter
--- OUTSIDE RECORDS SUMMARY | 2024-02-22 08:20 | XMS_ITS | Encounter Summary ---
[place] [address] Care Team Providers Care Care Services Manager Name Role Phone Gertrudis Li APRN Primary Care Provider [phone] Encounter Details Date Type Department Care Team (Late st Contact Info) Description 05/17/2005 [place] [address] Chadwick Epps MD [place], [place] Social History Tobacco Use Types Packs/Day [...] AM EST Hospital Encounter Non-Invasive [place] [address] Arrived documented as of this encounter Procedures Procedure Name Priority Date/Time Associated Diagnosis Comments SURGICAL PATHOLOGY REPORT Routine 05/17/2005 8:54 PM EST documented in this encounter Results * Surgical Pathology Report (05/17/2005 8:54 PM EST) Surgical Pathology Report [id number] ? Location: The signing pathologist has (i) [...] report in rendering the final pathologic diagnosis. [facility] 05/17/2005 8:54 PM EST Chadwick Epps MD [facility]OLOG[facility] documented in this encounter Visit Diagnoses Not on filedocumented in this encounter Care Teams Care Services Manager Relationship Specialty Start Date End Date Gertrudis Li APRN [address] [place] [address] PCP - General Family Medicine 05/24/23 documented as of this encounter
--- OUTSIDE RECORDS SUMMARY | 2024-02-22 08:20 | XMS_ITS | Encounter Summary ---
[place] [address] Care Team Providers Care General Technician Name Role Phone Gertrudis Li FARM MANAGEMENT PROFESSOR Primary Care Provider [phone] Encounter Details Date Type Department Care Team (Late st Contact Info) Description 12/11/2023 Abstract Cardiology at [address] [address] Ashleigh Aviles RN Social History [...] st Contact Info) Description 03/13/2024 11:00 AM [facility] Hospital Encounter Non-Invasive [place] [address] Arrived documented as of this encounter Visit Diagnoses Not on filedocumented in this encounter Care Teams General Technician Relationship Specialty Start Date End Date Gertrudis Li APR[place] [address] PCP - General Family Medicine 05/24/23 documented as of this encounter
--- OUTSIDE RECORDS SUMMARY | 2024-02-22 08:20 | XMS_ITS | Encounter Summary ---
Author Organization [facility] [place] [address] Care Team Providers Care Lpn Instructor Name Role Phone Gertrudis Li APRN Primary Care Provider [phone] Reason for Referral * Consultation (Routine) - Closed Specialty Diagnoses / Procedures Referred By Contact Referred To Contact Electrophysiology / Cardiology Diagnoses Personal history of other diseases of circulatory system Syncopal episode [facility], [facility]ope & collapse over the yrs, loop recorder in place. ?POTS syndrome. Previously followed in [facility] Gertrudis Li APRN [address] [place] [address] [facility] Cardiology [address] [place] [phone] Referral ID Status Reason Start Date Expiration Date V isits Requested Visits Authorized [id number] Closed Consult, Test & Treat PCP Updated and/or Approved 05/21/2023 05/20/2024 6 6 Encounter Details Date Type Department Care Team (Latest Contact Info) Description 05/24/2023 Transcribe Orders eD Incoming Referrals [phone] Gertrudis Li APRN [address] [place], [place] [id number] Personal history of other diseases of circulatory [...] st Contact Info) Description 03/13/2024 11:00 AM [facility] Hospital Encounter Non[place] [address] Arrived Scheduled Referrals Name Type Priority Associated Diagnoses Order Schedule Referral to Cardiac Electrophysiology Outpatient Referral Routine Personal history of other diseases of circulatory system Ordered: 05/24/2023 documented as of this encounter Visit Diagnoses Diagnosis Personal history of other diseases of circulatory system documented in this encounter Care Teams Lpn Instructor Relationship Specialty Start Date End Date Gertrudis Li, [place] [address] PCP - General Family Medicine 05/24/23 documented as of this encounter
--- OUTSIDE RECORDS SUMMARY | 2024-02-22 08:20 | XMS_ITS | Encounter Summary ---
[place] [address] Care Team Providers Care Polysomnograph Tech Name Role Phone Gertrudis Li APRN Primary Care Provider [phone] Encounter Details Date Type Department Care Team (Late Contact Info) Description 12/28/2023 Interpretation Only [address] [address] Forrest Barrera MD [address] [place] [address] Social History Tobacco Use Types Packs/Day Years Used Date Smoking Tobacco: Former Cigarettes Q uit: 1990 Smokeless Tobacco: Never Sex and Gender Information Value Date Recorded Sex Assigned at Not on file Gender Identity Not on file Sexual Orientation Not on file documented as of this encounter Plan of Treatment Upcoming Encounters Date Type Department Care Team (Late Contact Info) Description 03/13/2024 11:00 AM EST Hospital Encounter Non-Invasive [place] [address] Arrived documented as of this encounter Procedures Procedure Name Priority Date/Time Associated Diagnosis Comments XR CHEST ONE VIEW STAT 12/28/2023 11: 19 PM EDT documented in this encounter Results * XR Chest One View (12/28/2023 11:19 PM EDT) PT CLASS E DH RAD ADMITDTTM [id number] RAD PT PENNY DAS INFO [id number]^Bruce ^Forrest FRANCIS EXAM DESC XCXR1^XR Chest 1 View^RIS RAD WORKSTATION ID [id number] [facility] Anatomical Region Laterality Modality Chest N/A Radiographic [...] have questions please contact the health career development manager that requested your imaging first. ? Narrative [...] who have questions please contactthe health career development manager that requested your imaging first. Forrest Barrera MD IMG DX ORDERABLES documented in this encounter Visit Diagnoses Not on filedocumented in this encounter Care Teams Polysomnograph Tech Relationship Specialty Start Date End Date Gertrudis Li, ELECTRIC TRIPPER MACHINE [place]PER[place] [address] PCP - General Family Medicine 05/24/23 documented as of this encounter
--- OUTSIDE RECORDS SUMMARY | 2024-02-22 08:20 | XMS_ITS | Encounter Summary ---
[place] [address] Care Team Providers Care Reconstructive Dentist Name Role Phone Gertrudis Li PABLO Primary Care Provider [phone] Reason for Visit * Reason Onset Date Comments Referral 09/19/2023 Syncope and Collapse 09/19/2023 Encounter Details Date Type Department Care Team (Late st Contact Info) Description 09/19/2023 Telephone Cardiology at [address] [phone] Griselda Houser, campus manager; Syncope and Collapse Social History Tobacco Use [...] were not included. [facility] [address] [place] [id number] ----- Message from Susie Bales sent at 09/19/2023 2:42 PM EDT ----- Referral and Office Note scanned and indexed. Janessa is referred to this Cardiology clinic in [place]. She has an implanted loop recorder. Details of product not included with the referral. She previously with a rolled materials worker in [place], [place]. With phone call to Janessa, determined per her history that the device is a [employer] product that was implanted by Dr. Crowe in 2020 at [facility]. Medical records need to be requested from [facility]: Most recent device transmission Procedure report ILR and product information for Medtr[employer] device Most recent office visit note with Dr. Crowe [facility] & P Most recent echocardiogram, EKG, and stress testing Plan: Schedule Janessa for an appointment with Dr. Loredo or Dr. Call at this [facility]. documented in this encounter Plan of Treatment Upcoming Encounters Date Type Department Care Team (Late st Contact Info) Description 03/13/2024 11:00 AM [facility] Hospital Encounter Non[place] [address] Arrived documented as of this encounter Visit Diagnoses Not on filedocumented in this encounter Care Teams Reconstructive Dentist Relationship Specialty Start Date End Date Gertrudis Li [place] [address] [place] [address] PCP - General Family Medicine 05/24/23 documented as of this encounter
[2024-02-22 08:59] LABS: Abs Immature Grans 0.04 10^3/uL (0.0-0.06); Absolute Basophil Count 0.05 10^3/uL (0.0-0.2); Absolute Eosinophil Count 0.22 10^3/uL (0.0-0.7); Absolute Lymphocyte Count 2.15 10^3/uL (1.2-3.4); Absolute Monocyte Count 0.63 10^3/uL (0.1-0.8); Absolute Neutrophil Count 7.15 10^3/uL (1.2-6.7); Basophils % 0.5 %; Eosinophils % 2.1 %; HCT 38.1 % (36.0-46.0); HGB 11.8 g/dL (11.2-15.7); Immature Grans % 0.4 %; MCH 24.7 pg (27.0-33.0); MCV 80 fL (80-95); MPV 10.5 fL (8.0-11.0); Monocytes % 6.2 %; Neutrophils % 69.8 %; Platelet Count 303 10^3/uL (130-400); RBC 4.77 10^6/uL (3.93-5.22); RDW 14.9 % (11.7-14.6); RDW-SD 43.4 fL; WBC 10.24 10^3/uL (4.4-10.8)
[2024-02-22] MEDS: Pantoprazole 40 MG VIAL IVP (09:08)
[2024-02-22] MEDS: Prochlorperazine 10 MG/2 ML VIAL 5 MG IVP (09:08)
[2024-02-22 09:11] LABS: Prothrombin Time 10.1 sec (9.1-11.1)
[2024-02-22 09:17] LABS: ALT 19 U/L (14-59); AST 14 U/L (15-37); Albumin 3.4 g/dL (3.4-5.0); Alkaline Phosphatase 127 U/L (46-116); Anion Gap 8.6 mmol/L (3-11); BUN 13 mg/dL (7-18); Bilirubin, Total 0.26 mg/dL (0.2-1.0); CO2 28.4 mmol/L (21.0-32.0); Chloride 104 mmol/L (98-107); Estimated GFR 69.06 (mL/min/1.73m2); Glucose 139 mg/dL (74-106); Lipase 103 U/L (<78); Potassium 3.5 mmol/L (3.5-5.1); Sodium 141 mmol/L (136-145); Total Protein 7.6 g/dL (6.4-8.2); Troponin I 4 ng/L (<or=51)
[2024-02-22 09:21] LABS: Calcium 9.1 mg/dL (8.5-10.1)
[2024-02-22] MEDS: Normal Saline - Diluent 50 ML VIAL IJ (09:51)
[2024-02-22] MEDS: Omnipaque 350 MG/ML 100 ML BTL IJ (09:53)
--- NOTE | 2024-02-22 09:57 | DI.CT_ITS ---
Exam(s) CT ABDOMEN PELVIS CTA EXAM: CT ABDOMEN PELVIS CTA CLINICAL HISTORY: melena, hx of ulcer, lower abd pain. TECHNIQUE: Imaging Protocol: Axial computed tomography images with coronal and sagittal reformatted images were created and reviewed CONTRAST MATERIAL: Intravenous: Omnipaque 350 Contrast volume:100 ml Oral: None COMPARISON: CT CT ABDOMEN PELVIS W from 12/13/2023 FINDINGS: ABDOMEN: CTA: There is no evidence of abdominal aortic aneurysm nor dissection.There is no aneurysmal dilatati on of the common iliac arteries.The celiac and superior mesenteric arteries are patent.No evidence of significant narrowing nor intraluminal thrombus in these vessels. The inferior mesenteric artery is patent. There is no stenosis at the aortic bifurcation nor within the iliac arteries and there are no aneurysms of the iliac vessels evident. Renal arteries are patent without significant stenosis. GI: There is no intraluminal extravasation of intravenous contrast to suggest an obvious source of GI bleeding. There appears to be some circumferential thickening of the GE junction, more so than previ ous. At the level cecum there are few small hyperdensities which appear to be mural based. Possible p olyps. There is no ascites. LIVER: There are no focal hepatic lesions nor dilatation of intrahepatic ducts. GALLBLADDER/BILIARY: Gallbladder surgically absent. CBD is not dilated. PANCREAS: No evidence of pancreatic mass nor dilatation of the pancreatic duct. SPLEEN: Spleen is not enlarged. There are no intrasplenic lesions. Splenic and portal veins are gunter nt. ADRENALS: There are no significant adrenal masses. KIDNEYS: Left kidney unremarkable. There is again noted a cyst in the right kidney which measures 3.2 x 2.6 cm. This benign cyst does not require further workup. No solid renal masses. No calculi. No hy dronephrosis.. ABDOMINAL AORTA: The abdominal aorta is not enlarged. LYMPH NODES: There is no retroperitoneal nor para-aortic adenopathy. No obvious mesenteric masses. ABDOMINAL WALL: No evidence of significant anterior abdominal wall hernia. Bilateral fat only contai pamela inguinal hernias are noted. GI: There is no evidence of bowel obstruction, free air, nor abscess. PELVIS: LYMPH NODES: There is no intrapelvic nor inguinal adenopathy. GI: No evidence of appendicitis.No evidence of sigmoid diverticulitis. URINARY BLADDER: No calculi nor masses evident REPRODUCTIVE: Uterus is surgically absent. Previously described cyst in the left ovary has significan tly decreased in size. There is now a small cyst noted in the right ovary. Measures 1.3 by 1.0 cm. Th ere is a clip in the right-side of the pelvis which has appearance of possibly related to prior tubal ligation. Similar finding not seen on the opposite-left side of the pelvis. There is no free fluid i n the pelvis. OSSEOUS: No significant osseous lesions. Chronic disc space narrowing L5-S1 level. No listhesis. IMPRESSION: 1. No evidence of obvious acute GI bleeding demonstrated on this CT a study. 2. However, there are subtle densities in the cecum which may represent polyps or other pathology. Fo llow-up colonoscopy is recommended. There is also slight circumferential thickening of the GE junctio n noted. Also recommend follow-up upper endoscopy in this patient who apparently has melena. 3. Previous cholecystectomy and hysterectomy (ovaries remain). No evidence of bowel obstruction. No a scites. 4. Left ovarian cyst previously described has resolved. There is now a small right ovarian cyst measu ring 13 x 10 mm. Report called by myself to ER provider RADIATION DOSE DELIVERED: 1,605.51mGy.cm Total DLP DATA REPOSITORY: All CT scans at this facility are submitted to the National Radiology Data Registry (NRDR) Dose Index Registry (DIR) with the [employer] (ACR). RADIATION OPTIMIZATION: All CT scans at this facility use at least one of these dose optimization te chniques: automated exposure control; mA and/or kV adjustment per patient size (includes targeted exa ms where dose is matched to clinical indication); or iterative reconstruction.
[2024-02-22 10:54] LABS: Lithium < 0.2 mmol/L (0.6-1.2)
--- NOTE | 2024-02-23 15:33 | W.ED.GENAD ---
Discharge Plan Disposition Patient Disposition: Home Discharge Details Clinical Impression: Abdominal pain Primary Care Provider: BELTRAN JHAVERI ED Provider: Elle Miller Home Meds and New Rx's Prescriptions: Continued sucralfate [Carafate] 1 gram tablet 1 g PO QID Qty: 120 12RF docusate sodium 100 mg capsule 100 mg PO TID fluticasone propion-salmeterol [Advair HFA] 230-21 mcg/actuation HFA aerosol inhaler 2 puff inhalation BID albuterol sulfate 90 mcg/actuation HFA aerosol inhaler 2 puff inhalation Q6H PRN cetirizine 10 mg tablet 10 mg PO DAILY PRN clonazepam 0.5 mg tablet 0.5 mg PO DAILY PRN epinephrine 0.3 mg/0.3 mL auto-injector 0.3 mg IM ONCE Rx Instructions: as a single dose; may repeat once potassium chloride [Klor-Con] 20 mEq packet 20 meq PO DAILY Linzess 72 mcg capsule 72 mcg PO DAILY quetiapine 300 mg tablet 300 mg PO QHS Spiriva Respimat 1.25 mcg/actuation mist 2 puff inhalation DAILY Gemtesa 75 mg tablet 75 mg PO DAILY Qty: 30 1RF acetaminophen [Tylenol Extra Strength] 500 mg tablet 500 mg PO Q6H PRN dexlansoprazole [Dexilant] 30 mg capsule,biphase delayed releas 30 mg PO DAILY Qty: 30 6RF famotidine 20 mg tablet 20 mg PO BID bupropion HCl 300 mg tablet extended release 24 hr 300 mg PO QAM lithium carbonate 300 mg tablet extended release 300 mg PO HS Patient Comments: TAKE 1 TABLET BY MOUTH IN THE EVENING sumatriptan succinate 50 mg tablet 50 mg PO ONCE PRN Patient Comments: TAKE ONE TABLET BY MOUTH AT ONSET OF HEADACHE, MAY REPEAT IN TWO HOURS IF NECESSARY NOT TO EXCEED 2 TABLETS IN 24 HOURS Januvia 100 mg tablet 100 mg PO DAILY Patient Comments: TAKE ONE TABLET BY MOUTH EVERY DAY IN THE MORNING cholecalciferol (vitamin D3) 50 mcg (2,000 unit) capsule 50 mcg PO DAILY Patient Comments: TAKE TWO CAPSULES BY MOUTH EVERY DAY escitalopram oxalate 20 mg tablet 20 mg PO DAILY AM Patient Comments: TAKE 1 TABLET BY MOUTH ONCE DAILY midodrine 2.5 mg tablet 2 tab PO TID Patient Comments: TAKE 2 TABLETS BY MOUTH THREE TIMES DAILY lidocaine 5 % adhesive patch,medicated 1 patch topical DAILY Qty: 30 0RF Rx Instructions: leave on most painful area for up to 12 hrs Discharge Instructions Instructions: Abdominal Pain, Adult ED Additional Instructions: Continue taking her medications as prescribed, do not take nonsteroidals, ibuprofen or aspirin as you have an ulcer and this can precipitate bleeding Today your stool was negative for blood and your labs are reassuring. Your CAT scan does not show evidence of significant acute abnormality Please follow-up with surgery at your scheduled appointment and return earlier should you have new or worsening complaints For your shoulder pain I recommend using Motrin gel and oral Tylenol as prescribed on bottle Stand Alone Forms: Work Release Referrals: BELTRAN JHAVERI NP [Primary Care Provider] - Eunice Erazo DO [OSTEOPATHIC DOCTOR] - Discharge Data Discharge Date/Time-TO BE ENTERED AT DEPARTURE: 02/22/24 12:10 HPI General Date/Time Provider Initiated Documentation: 02/22/24 08:21. HPI Narrative: This 48-year-old female presents with report of dark stools since Sunday. She states she feels lightheaded. She states she has had a similar episode in the past and is actually scheduled for a colonoscopy and endoscopy in 1 month. Last episode was this morning. Denies any bright red blood. Has had some cramping in her lower abdomen. Denies any chest pain or shortness of breath. Denies any history of coagulopathy. Related Data Home Medications ?Medication ?Instructions ?Recorded ?Confirmed cholecalciferol (vitamin D3) 50 50 mcg PO DAILY 02/14/21 02/22/24 mcg (2,000 unit) capsule escitalopram oxalate 20 mg tablet 20 mg PO DAILY AM 11/12/21 02/22/24 midodrine 2.5 mg tablet 2 tab PO TID 11/12/21 02/22/24 lithium carbonate 300 mg 300 mg PO HS 03/19/22 02/22/24 tablet,extended release albuterol sulfate 90 mcg/actuation 2 puff inhalation Q6H PRN 05/01/23 02/22/24 aerosol inhaler cetirizine 10 mg tablet 10 mg PO DAILY PRN 05/01/23 02/22/24 clonazepam 0.5 mg tablet 0.5 mg PO DAILY PRN 05/01/23 02/22/24 epinephrine 0.3 mg/0.3 mL 0.3 mg IM ONCE 05/01/23 02/22/24 injection, auto-injector fluticasone propionate 230 2 puff inhalation BID 05/01/23 02/22/24 mcg-salmeterol 21 mcg/actuation HFA inhaler (Advair HFA) linaclotide 72 mcg capsule 72 mcg PO DAILY 05/01/23 02/22/24 (Linzess) potassium chloride 20 mEq oral 20 meq PO DAILY 05/01/23 02/22/24 packet (Klor-Con) quetiapine 300 mg tablet 300 mg PO QHS 05/01/23 02/22/24 tiotropium bromide 1.25 2 puff inhalation DAILY 05/01/23 02/22/24 mcg/actuation mist for inhalation (Spiriva Respimat) docusate sodium 100 mg capsule 100 mg PO TID 08/13/23 02/22/24 sucralfate 1 gram tablet (Carafate) 1 g PO QID #120 tabs 08/13/23 02/22/24 acetaminophen 500 mg tablet 500 mg PO Q6H PRN 09/06/23 02/22/24 (Tylenol Extra Strength) dexlansoprazole 30 mg 30 mg PO DAILY #30 caps 09/06/23 02/22/24 capsule,biphase delayed release (Dexilant) sitagliptin phosphate 100 mg 100 mg PO DAILY 12/26/23 02/22/24 tablet (Januvia) sumatriptan succinate 50 mg tablet 50 mg PO ONCE PRN 12/26/23 02/22/24 vibegron 75 mg tablet (Gemtesa) 75 mg PO DAILY #30 tabs 01/09/24 02/22/24 lidocaine 5 % topical patch 1 patch topical DAILY #30 ea 02/01/24 02/22/24 bupropion HCl 300 mg 24 hr tablet, 300 mg PO QAM 02/20/24 02/22/24 extended release famotidine 20 mg tablet 20 mg PO BID 02/20/24 02/22/24 Previous Rx's ?Medication ?Instructions ?Recorded sucralfate 1 gram tablet (Carafate) 1 g PO QID #120 tabs 08/13/23 dexlansoprazole 30 mg 30 mg PO DAILY #30 caps 09/06/23 capsule,biphase delayed release (Dexilant) vibegron 75 mg tablet (Gemtesa) 75 mg PO DAILY #30 tabs 01/09/24 lidocaine 5 % topical patch 1 patch topical DAILY #30 ea 02/01/24 Allergies Allergy/AdvReac Type Severity Reaction Status Date / Time venom-honey bee Allergy Severe Other (See Verified 02/22/24 08:18 Comment) Sulfa (Sulfonamide Allergy HIVES Verified 02/22/24 08:18 Antibiotics) General Stated Complaint: GI Bleed MIKE: 3 Exam Narrative Exam Narrative: 48-year-old female alert and oriented, no acute distress, no pallor, cardiac rate rhythm regular, lungs clear to auscultation, mild abdominal tenderness. Alert and oriented x 4, no peripheral edema, guaiac negative stool, brown in color, no visible blood Course Vital Signs Vital signs: Vital Signs Temperature 35.7 C L 02/22/24 08:15 Pulse 77 02/22/24 08:15 Respiratory Rate 18 02/22/24 08:15 Blood Pressure 150/72 H 02/22/24 08:15 Pulse Oximetry 96 02/22/24 08:15 Temperature 36.8 C 02/22/24 11:47 Temperature Source Temporal Artery Scan 02/22/24 08:15 Pulse 80 02/22/24 11:47 Pulse 93 H 02/22/24 11:31 Respiratory Rate 18 02/22/24 11:47 Respiratory Effort Normal, Non-Labored 02/22/24 08:20 Blood Pressure 141/71 H 02/22/24 11:47 Blood Pressure Mean 95 02/22/24 11:46 Blood Pressure Position Sitting 02/22/24 08:15 Pulse Oximetry 98 02/22/24 11:47 Oxygen Delivery Method Room Air 02/22/24 08:15 Oxygen Flow Rate 0 02/22/24 08:15 Pain Level 0 02/22/24 11:47 Lab/Test Results Lab/Test Results: Laboratory Tests Range/Units 02/22/24 02/22/24 02/22/24 08:40 09:48 10:17 WBC (4.4-10.8) 10^3/uL 10.24 RBC (3.93-5.22) 10^6/uL 4.77 Hgb (11.2-15.7) g/dL 11.8 Hct (36.0-46.0) % 38.1 MCV (80-95) fL 80 MCH (27.0-33.0) pg 24.7 L MCHC (32.0-36.0) % 31.0 L RDW (11.7-14.6) % 14.9 H Plt Count (130-400) 10^3/uL 303 MPV (8.0-11.0) fL 10.5 Immature Gran % % 0.4 Neutrophils % % 69.8 Lymphocytes % % 21.0 Monocytes % % 6.2 Eosinophils % % 2.1 Basophils % % 0.5 Nucleated RBC % (0.0-0.3) % 0.0 Absolute Neutrophils (1.2-6.7) 10^3/uL 7.15 H Absolute Lymphocytes (1.2-3.4) 10^3/uL 2.15 Absolute Monocytes (0.1-0.8) 10^3/uL 0.63 Absolute Eosinophils (0.0-0.7) 10^3/uL 0.22 Absolute Basophils (0.0-0.2) 10^3/uL 0.05 PT (9.1-11.1) sec 10.1 INR (0.9-1.1) 1.0 Sodium (136-145) mmol/L 141 Potassium (3.5-5.1) mmol/L 3.5 Chloride (98-107) mmol/L 104 Carbon Dioxide (21.0-32.0) mmol/L 28.4 Anion Gap (3-11) mmol/L 8.6 BUN (7-18) mg/dL 13 Creatinine (0.55-1.02) mg/dL 1.0 Est GFR (CKD-EPI 2020) (mL/min/1.73m2) 69.06 Glucose (74-106) mg/dL 139 H Calcium (8.5-10.1) mg/dL 9.1 Total Bilirubin (0.2-1.0) mg/dL 0.26 AST (15-37) U/L 14 L ALT (14-59) U/L 19 Alkaline Phosphatase (46-116) U/L 127 H Troponin I (<or=51) ng/L 4 Cancelled Total Protein (6.4-8.2) g/dL 7.6 Albumin (3.4-5.0) g/dL 3.4 Lipase (<78) U/L [address] (0.6-1.2) mmol/L < 0.2 L ABO/Rh O Positive Antibody Screen NEGATIVE Range/Units 02/22/24 11:48 WBC (4.4-10.8) 10^3/uL RBC (3.93-5.22) 10^6/uL Hgb (11.2-15.7) g/dL Hct (36.0-46.0) % MCV (80-95) fL MCH (27.0-33.0) pg MCHC (32.0-36.0) % RDW (11.7-14.6) % Plt Count (130-400) 10^3/uL MPV (8.0-11.0) fL Immature Gran % % Neutrophils % % Lymphocytes % % Monocytes % % Eosinophils % % Basophils % % Nucleated RBC % (0.0-0.3) % Absolute Neutrophils (1.2-6.7) 10^3/uL Absolute Lymphocytes (1.2-3.4) 10^3/uL Absolute Monocytes (0.1-0.8) 10^3/uL Absolute Eosinophils (0.0-0.7) 10^3/uL Absolute Basophils (0.0-0.2) 10^3/uL PT (9.1-11.1) sec INR (0.9-1.1) Sodium (136-145) mmol/L Potassium (3.5-5.1) mmol/L Chloride (98-107) mmol/L Carbon Dioxide (21.0-32.0) mmol/L Anion Gap (3-11) mmol/L BUN (7-18) mg/dL Creatinine (0.55-1.02) mg/dL Est GFR (CKD-EPI 2020) (mL/min/1.73m2) Glucose (74-106) mg/dL Calcium (8.5-10.1) mg/dL Total Bilirubin (0.2-1.0) mg/dL AST (15-37) U/L ALT (14-59) U/L Alkaline Phosphatase (46-116) U/L Troponin I (<or=51) ng/L Cancelled Total Protein (6.4-8.2) g/dL Albumin (3.4-5.0) g/dL Lipase (<78) U/L [facility] [place] (0.6-1.2) mmol/L ABO/Rh Antibody Screen Medical Decision Making 48-year-old female alert and oriented, no acute distress, CTA abdomen pelvis was ordered which does not show evidence of acute abnormality per radiology interpretation my review, I discussed the case with Dr. Langford, radiologist. Hemodynamically stable throughout encounter. I spent approximately 5 minutes reviewing patient's prior colonoscopy she had an area of maceration sigmoid colon. CBC within normal limits for patient chemistry reassuring no elevated BUN which would be more consistent with an upper GI bleed. Patient is encouraged to continue taking her PPI and follow-up for colonoscopy. She is given low threshold to return should she have new or worsening complaints. She is discharged home in stable condition with stable vitals Quality:[facility] Health Related Social Needs: No Data to Display PFSH All Active Problems (Updated 02/22/24 @ 11:41 by HOLLY Keene) Abdominal pain (Acute) Tingling of right upper extremity (Acute) Acute pain of right shoulder (Acute) Rectal bleeding (Acute) Suprapubic pain (Acute) Hiatal hernia with GERD (Acute) Chronic erosive gastritis (Acute) Bipolar 2 disorder (Chronic) Type 2 diabetes mellitus with peripheral neuropathy (Acute) Chest pain, unspecified (Acute) Anxiety (Chronic) Psychologic conversion disorder (Acute) Urinary incontinence (Acute) Seasonal affective disorder (Acute) Tinea pedis (Acute) Onychomycosis (Acute) PVD (peripheral vascular disease) (Chronic) Nail dystrophy (Acute) Type 2 diabetes mellitus (Chronic) Shortness of breath (Acute) Muscle pain (Acute) Atypical chest pain (Acute) GERD (gastroesophageal reflux disease) (Chronic) Nausea and vomiting in adult (Acute) Abnormal CT of the abdomen (Acute) N&V (nausea and vomiting) (Acute) Hypokalemia (Acute) Right lower quadrant abdominal pain (Acute) Gastroesophageal reflux disease (Chronic) Asthma (Chronic) Depression (Chronic) Takes Fluoxetine 20mg QD with good impact on her depression, denies any SI. Encouraged to continue. to try to tame a hoiurde. Medical History RLQ abdominal tenderness Pre-syncope Orthostatic hypotension Nonspecific paroxysmal spell Dizziness Vertigo Gallstones without obstruction of gallbladder Calculus of gallbladder with chronic cholecystitis without obstruction Pacemaker Gestational diabetes mellitus High ankle sprain of right lower extremity Acne (04/21/13) Back pain Taking prednisone 60mg QD for 4 days. Currently on day 2. Not feeling it is making much of a difference but she was encouraged to take for the full 4 days. Also suggested she take the muscle relaxer only PRN as it makes her quite drowsy. Encouraged to take at night. To help with rest. Other valenzuela, suggested she increse Aleve to AM & PM dose, then supplement with 1000mg Acetaminophen every 4-6 hours up to a total of 4000mg/day. Suggested ice might help more than heat but either should be limited to only 20 minutes at a time. Use topicals (Solopas Gel or Aspercreame with Lidocaine seem to be quite helpful. Try to avoid sitting or standing still for prolonged periods of time. Walking on flat ground is encourage. Surgical History History of cholecystectomy (~03/2019) History of esophagogastroduodenoscopy (EGD) (~07/2022) History of hysterectomy History of bilateral ligation of fallopian tubes History of discectomy Status post dilation and curettage S/P endometrial ablation irregular bleeding has restarted, neg EM bx 01/2016 discectomy (~2003) Ligation of fallopian tube Endometrial Ablation (~2009) Dilation and curettage X 2 with losses ANAL SURGERY surgical drainage of anal fissure Family History Mother Hyperlipidemia Thyroid disorder Father Essential hypertension Diabetes Personal history of malignant neoplasm prostate Heart disease Hyperlipidemia Myocardial infarction Social History Smoking/Tobacco Use Status: Former Tobacco Use Quit Date: 04/02/22 Tobacco: How many years used: 20 Smoking risk assessment performed?: Yes Alcohol Intake: never Drug use: Never Substance use type: does not use Household members: family and other Details: Lives with demented mother and her brother Housing: house 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
== END 2024-02-22 12:10 | disposition home or self-care (01) ==
PROVIDERS: Emergency Provider Physician Assistant; PCP Nurse Practitioner Family
DX: R10.30 Lower abdominal pain, unspecified (principal); E11.40 Type 2 diabetes mellitus with diabetic neuropathy, unspecified; Z95.0 Presence of cardiac pacemaker; Z90.49 Acquired absence of other specified parts of digestive tract; Z90.710 Acquired absence of both cervix and uterus; Z87.891 Personal history of nicotine dependence
CPT/HCPCS: 80053; 83690; 86850; 86900; 86901; 93005; 96374; 96375; 99285; 74174; 80178; 84484; 85025; 85610; 93010; J0780; J2470; J3490

== ENCOUNTER 2024-05-05 21:57 | Emergency (ER) | payer MEDICARE, MEDICAID, SELFPAY ==
[2024-05-05 22:01] VITALS: BP 144/80; PULSE 99; RESP 16; TEMP 38.2; O2SAT 96
--- OUTSIDE RECORDS SUMMARY | 2024-05-05 22:05 | XMS_ITS | Encounter Summary ---
[place] [address] Care Team Providers Care Price Analyst Name Role Phone Gertrudis Li APRN Primary Care Provider [phone] Encounter Details Date Type Department Care Team (Late st Contact Info) Description 12/28/2023 Interpretation Only [facility] [address] [place] [phone] Forrest Barrera MD [address] [place] [address] Social History Tobacco Use Types Packs/Day Years Used Date Smoking Tobacco: Former Cigarettes Q uit: 1990 Smokeless Tobacco: Never Sex and Gender Information Value Date Recorded Sex Assigned at Not on file Gender Identity Not on file Sexual Orientation Not on file documented as of this encounter Plan of Treatment Not on file documented as of this encounter Procedures Procedure Name Priority Date/Time Associated Diagnosis Comments XR CHEST ONE VIEW STAT 12/28/2023 11: 19 PM EDT documented in this encounter Results * XR Chest One View (12/28/2023 11:19 PM EDT) PT CLASS E RAD ADMITDTTM [id number] RAD PT RAD INFO [id number]^Bruce ^Forrest RAD EXAM DESC XCXR1^XR Chest 1 View^RIS RAD WORKSTATION ID [id number] RAD Anatomical Region Laterality Modality Chest N/A [...] who have questions please contact the health progressive care unit registered nurse that requested your imaging first. ? Narrative [...] patients who have questions please contactthe health progressive care unit registered nurse that requested your imaging first. Forrest Barrera MD IMG DX ORDERABLES documented in this encounter Visit Diagnoses Not on filedocumented in this encounter Care Teams Price Analyst Relationship Specialty Start Date End Date Gertrudis Li, SOCIAL WORK PROFESSOR [facility] [place] [address] PCP - General Family Medicine 05/24/23 documented as of this encounter
--- OUTSIDE RECORDS SUMMARY | 2024-05-05 22:05 | XMS_ITS | Encounter Summary ---
[place] [address] Care Team Providers Care Monotype Setter Name Role Phone Gertrudis Li PABLO Primary Care Provider Reason for Visit * Reason Onset Date Comments Referral 09/19/2023 Syncope and Collapse 09/19/2023 Encounter Details Date Type Department Care Team (Late st Contact Info) Description 09/19/2023 Telephone Cardiology at [address] [phone] Griselda Houser, rate engineer; Syncope and Collapse Social History Tobacco Use [...] were not included. Heart and Vascular Clinics [facility] [address] [place] [id number] ----- Message from Susie Bales sent at 09/19/2023 2:42 PM EDT ----- Referral and Office Note scanned and indexed. Janessa is referred to this Cardiology clinic in [place]. She has an implanted loop recorder. Details of product not included with the referral. She previously with a office nurse in [place], [place]. With phone call to Janessa, determined per her history that the device is a Medtronic product that was implanted by Dr. Crowe in 2020 at [facility]. Medical records need to be requested from [facility]: Most recent device transmission Procedure report ILR and product information for Medtronic device Most recent office visit note with Dr. Crowe H & P Most recent echocardiogram, EKG, and stress testing Plan: Schedule Janessa for an appointment with Dr. Loredo or Dr. Call at this [facility]. documented in this encounter Plan of Treatment Not on file documented as of this encounter Visit Diagnoses Not on filedocumented in this encounter Care Teams Monotype Setter Relationship Specialty Start Date End Date Gertrudis Li, HELPER METAL [employer] [address] [place] [address] PCP - General Family Medicine 05/24/23 documented as of this encounter
--- OUTSIDE RECORDS SUMMARY | 2024-05-05 22:05 | XMS_ITS | Encounter Summary ---
Author Organization [facility] [place] [address] Care Team Providers Care Foreign Banknote Teller Trader Name Role Phone Gertrudis Li APRN Primary Care Provider Reason for Visit * Reason Comments Syncope and Collapse Encounter Details Date Type Department Care Team (Late st Contact Info) Description 12/12/2023 11:00 AM EDT Office Visit Cardiology at [address] [place] [address] Austin Loredo MD [facility] [place] [address] [place] [address] Syncope and collapse Social History Tobacco Use [...] Follow Up Patient ID Janessa Covarrubias 1975 [id number] Janessa Covarrubias is referred to the EP clinic by Gertrudis Li APRN Chief Complaint ILR H/o Syncope History This is a 48 y.o. female following up/being seen in clinic for ILR evaluation/prior history of syncope - episodes that have happened since 2019. Her LINQ was implanted 05/2020. She has previously beenfollowed by Cardiology at [facility] She has a past [...] recorder - previously followed by cardiology in [place], [place] Orthostatic hypotension Nail dystrophy Major depressive disorder, [...] 2020. She has previously been followed by [place] [facility]. 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 She has never been trialed on fludrocortisone as far as I can tell. Her implantable loop recorder data is currently being sent to [facility], I asked her whether she would like me to request transfer of this day to to the [facility], she said yes. [...] may prefer to have follow-up as at [facility] as this is closer. AUSTIN LOREDO MD Cardiac Electrophysiology [facility] 40 minutes were spent preparing to see [...] collapse documented in this encounter Care Teams Foreign Banknote Teller Trader Relationship Specialty Start Date End Date Gertrudis iL APRN [facility] [place] [address] PCP - General Family Medicine 05/24/23 documented as of this encounter
--- OUTSIDE RECORDS SUMMARY | 2024-05-05 22:05 | XMS_ITS | Encounter Summary ---
[place] [address] Care Team Providers Care Educational Audiologist Name Role Phone Francesco Travis Brianna SHAH Primary Care Provider [phone] Encounter Details Date Type Department Care Team (Late st Contact Info) Description 05/05/2023 Interpretation Only [address] [phone] Jean Carlos Gallegos MD [address] [address] Social History Tobacco Use Types Packs/Day Years [...] PM EST) PT CLASS E RAD ADMITDTTM [id number] RAD PT RAD INFO [id number]^El ^Jean Carlos^Abdon RAD EXAM DESC CTHEAD^CT Head [...] have questions please contact the health director day care center that requested your imaging first. ? Narrative [...] who have questions please contactthe health director day care center that requested your imaging first. Jean Carlos Gallegos MD IMG CT ORDERABL ES documented in this encounter Visit Diagnoses Not on filedocumented in this encounter Care Teams Educational Audiologist Relationship Specialty Start Date End Date Travis Maya, HEAD MIXER [address] [place] [address] PCP - General 02/22/10 05/23/23 documented as of this encounter
--- OUTSIDE RECORDS SUMMARY | 2024-05-05 22:05 | XMS_ITS | Encounter Summary ---
[place] [address] Care Team Providers Care Rock Mason Name Role Phone Gertrudis Li APRN Primary Care Provider [phone] Encounter Details Date Type Department Care Team (Late st Contact Info) Description 09/19/2023 Abstract Cardiology at [address] [phone] Griselda Houser, RN Pacemaker; Tobacco [...] health documented in this encounter Care Teams Rock Mason Relationship Specialty Start Date End Date Gertrudis Li [place] [address] [place] [address] PCP - General Family Medicine 05/24/23 documented as of this encounter
--- OUTSIDE RECORDS SUMMARY | 2024-05-05 22:05 | XMS_ITS | Encounter Summary ---
Author Organization [facility] [place] [address] Care Team Providers Care Lead Investigator Name Role Phone Gertrudis Li APRN Primary Care Provider [phone] Reason for Referral * Consultation (Routine) - [...] CENTER Gertrudis Li APRN [address] [place] [address] [facility] [address] [place] [phone] Referral ID Status Reason Start Date Expiration Date V isits Requested Visits Authorized [id number] Closed Consult, Test & Treat PCP Updated and/or Approved 05/21/2023 05/20/2024 6 6 Encounter Details Date Type Department Care Team (Latest Contact Info) Description 05/24/2023 Transcribe Orders eD Incoming Referrals [phone] Gertrudis Li APRN [address], [place] [id number] Personal history of other diseases of circulatory system Social History Tobacco Use Types Packs/Day Years Used Date Smoking Tobacco: Never Assessed Sex and Gender Information Value Date Recorded Sex Assigned at Not on file Gender Identity Not on file Sexual Orientation Not on file documented as of this encounter Plan of Treatment Scheduled Referrals Name Type Priority Associated Diagnoses Order Schedule Referral to Cardiac Electrophysiology Outpatient Referral Routine Personal history of other diseases of circulatory system Ordered: 05/24/2023 documented as of this encounter Visit Diagnoses Diagnosis Personal history of other diseases of circulatory system documented in this encounter Care Teams Lead Investigator Relationship Specialty Start Date End Date Gertrudis Li, DENTURE FINISHER [place] [place] [address] PCP - General Family Medicine 05/24/23 documented as of this encounter
--- OUTSIDE RECORDS SUMMARY | 2024-05-05 22:05 | XMS_ITS | Encounter Summary ---
Author Organization [facility] [place] [address] Care Team Providers Care Cellular Plastics Cutter Name Role Phone Gertrudis Li PABLO Primary Care Provider [phone] Encounter Details Date Type Department Care Team (Late st Contact Info) Description 05/17/2005 [place] [id number] Chadwick Epps MD [place], [place] Social History Tobacco Use Types Packs/Day [...] (05/17/2005 8:54 PM EST) Surgical Pathology Report [id number] ? Location: The signing pathologist has (i) [...] report in rendering the final pathologic diagnosis. TAYA VARELA 05/17/2005 8:54 PM EST Chadwick Epps MD PATHOLOGY/CYTOLOGY O RDERABLES TYAA VARELA documented in this encounter Visit Diagnoses Not on filedocumented in this encounter Care Teams Cellular Plastics Cutter Relationship Specialty Start Date End Date Gertrudis Li, TABLE GAMES DEALER [address] [place] [address] PCP - General Family Medicine 05/24/23 documented as of this encounter
--- OUTSIDE RECORDS SUMMARY | 2024-05-05 22:05 | XMS_ITS | Clinical Summary ---
Author Organization [facility] [place] [address] Care Team Providers Care Human Factors Specialist Name Role Phone Gertrudis Li APRN Primary Care Provider [phone] Allergies Active Allergy Reactions Criticality Noted Date [...] Encounters Date Type Department Care Team Description 03/13/2024 11:00 AM EST - 03/13/2024 11:59 PM EST Hospital Encounter [place] [address] Discharge Disposition: Home from Last 3 Months Immunizations Name Administration [...] 12/12/2023 11:27 AM EDT Plan of Treatment Health Maintenance Due Date Last Done Comments CT Colonography 1974 Colonoscopy 1974 Colorectal Cancer Screening 1974 FIT DNA 1974 FIT 1974 Sigmoidoscopy (10 year) with FIT yearly 1974 Sigmoidoscopy 1974 DM Creatinine yearly 1984 DM Hemoglobin A1c 1984 DM Opthalmology Exam 1984 DM Urine Microalbumin yearly 1984 HIV screen 1992 Hepatitis C Screening 1992 Lipid Screening 1992 Hepatitis B vaccine (0-59 yrs) (1) 1993 Pneumoccocal Vaccine: 50+ (1 of 2 - PCV) 1993 HPV test 2004 PAP Smear 2004 Tetanus/Diphtheria/Pertussis Vaccines (1 - Tdap) 04/12/2005 04/11/2005 Breast Cancer Share Decision Needed 2014 Breast Cancer screening 2014 Covid-19 Vaccine (4 - season) 2023 03/15/2021, 09/14/2020, 08/17/2020 Influenza (Flu) vaccine (1 o f 1 - Influenza standard series) 12/02/2023 02/16/2005 Zoster vaccine (1 of 2) 2024 Medical Devices Implanted Type Area Optical Engineer Device Identifier Shelf Expiration Date Model / Serial / Lot Implantable Loop Recorder-05/25 Implanted: (Quantity not on file) Implantable Loop Recorder Subcutaneous [employer] [id number] / [id number] / Care Teams Human Factors Specialist Relationship Specialty Start Date End Date Gertrudis Li APRN [facility] [place] [address] PCP - General Family Medicine 05/24/23
--- OUTSIDE RECORDS SUMMARY | 2024-05-05 22:05 | XMS_ITS | Encounter Summary ---
[place] [address] Care Team Providers Care Commissions Specialist Name Role Phone Gertrudis Li APRN Primary Care Provider [phone] Reason for Visit * Reason Onset Date Comments Other 01/23/2024 Encounter Details Date Type Department Care Team (Late st Contact Info) Description 01/23/2024 Telephone Cardiology at [address] [id number] Mansi [place] Other Social History Tobacco Use [...] on filedocumented in this encounter Care Teams Commissions Specialist Relationship Specialty Start Date End Date Gertrudis [place] [address] [place] [address] PCP - General Family Medicine 05/24/23 documented as of this encounter
--- OUTSIDE RECORDS SUMMARY | 2024-05-05 22:05 | XMS_ITS | Encounter Summary ---
Author Organization [facility] [place] [address] Care Team Providers Care Real Estate Valuer Name Role Phone Guillermo Gertrudis Chaudhry APRN Primary Care Provider [phone] Reason for Referral * Surgical (Routine) - Authorized Specialty Diagnoses / Procedures Referred By Jo perry Referred To Contact Gastroenterology Diagnoses Heartburn ESOPHAGEAL REFLUX AND MOTILITY Eunice Erazo DO [address] [place] [address] [facility] [address] [place] [address] Referral ID Status Reason Start Date Expiration Date Visits Requested Visits Authorized [id number] Authorized Test Only PCP Updated and/or Approved 10/15/2023 10/14/2024 1 1 Encounter Details Date Type Department Care Team (Late st Contact Info) Description 10/15/2023 Transcribe Orders eDH Incoming Referrals [phone] [place] [address] [place] [address] [address] [place], [place] [id number] Heartburn Social History Tobacco Use Types Packs/Day [...] Heartburn documented in this encounter Care Teams Real Estate Valuer Relationship Specialty Start Date End Date Gertrudis Li, POOL TABLE [place] [address] PCP - General Family Medicine 05/24/23 documented as of this encounter
--- OUTSIDE RECORDS SUMMARY | 2024-05-05 22:05 | XMS_ITS | Encounter Summary ---
[place] [address] Care Team Providers Care Architectural Model Maker Name Role Phone Gertrudis Li APRN Primary Care Provider [phone] Encounter Details Date Type Department Care Team (Late st Contact Info) Description 12/11/2023 Abstract Cardiology at [address] [address] Ashleigh Aviles RN Social History [...] on filedocumented in this encounter Care Teams Architectural Model Maker Relationship Specialty Start Date End Date Gertrudis Li [place] [address] [place] [address] PCP - General Family Medicine 05/24/23 documented as of this encounter
--- OUTSIDE RECORDS SUMMARY | 2024-05-05 22:05 | XMS_ITS | Encounter Summary ---
Author [place] [address] Care Team Providers Care Retail Administrative Assistant Name Role Phone Francesco Travis Brianna SHAH Primary Care Provider [phone] Encounter Details Date Type Department Care Team (Late st Contact Info) Description 05/05/2023 Interpretation Only [address] [phone] Jean Carlos Gallegos MD [facility] [address] [place] [address] Social History Tobacco Use Types Packs/Day Years [...] EST) PT CLASS E DH RAD ADMITDTTM [id number] DH RAD PT RAD INFO [id number]^El ^Jean Carlos^[place]don RAD EXAM DESC XCXR1^XR Chest 1 View^RIS DH RAD Anatomical Region Laterality Modality Chest N/A [...] who have questions please contact the health home care consultant that requested your imaging first. ? Electronically signed by: Erin Cerda MD, [facility] ([phone]), at 05/05/2023 6:42 PM Narrative 05/05/2023 6:42 [...] patients who have questions please contactthe health home care consultant that requested your imaging first. Electronically signed by: Erin Cerda MD, [facility]([phone]), at 05/05/2023 6:42 PM Jean Carlos Gallegos MD IMG DX ORDERABL ES documented in this encounter Visit Diagnoses Not on filedocumented in this encounter Care Teams Retail Administrative Assistant Relationship Specialty Start Date End Date Travis Maya, PABLO [address] [place] [address] PCP - General 02/22/10 05/23/23 documented as of this encounter
--- OUTSIDE RECORDS SUMMARY | 2024-05-05 22:05 | XMS_ITS | Encounter Summary ---
[place] [address] Care Team Providers Care Dramatic Agent Name Role Phone Guillermo, Gertrudis Chaudhry APRN Primary Care Provider [phone] Encounter Details Date Type Department Care Team (Latest Contact Info) Description 03/13/2024 11:00 AM EST - 03/13/2024 11:59 PM EST Hospital Encounter Non[place] [phone] Discharge Disposition: Home Social History Tobacco Use Types Packs/Day Years Used Date Smoking Tobacco: Former Cigarettes Q uit: 1990 Smokeless Tobacco: Never Sex and Gender Information Value Date Recorded Sex Assigned at Not on file Gender Identity Not on file Sexual Orientation Not on file documented as of this encounter Medications at Time of Discharge Medication Sig Dispensed Refills Start Date End Date fluticasone propionate-salmeteroL (Advair HFA) 230-21 mcg/actuation inhaler [...] mL injection 0.3MG/0.3ML, IM, as directed 07/14/2005 documented as of this encounter Plan of Treatment Not on file documented as of this encounter Visit Diagnoses Not on filedocumented in this encounter Care Teams Dramatic Agent Relationship Specialty Start Date End Date Gertrudis [place] [address] PCP - General Family Medicine 05/24/23 documented as of this encounter
[2024-05-05 22:38] LABS: Bilirubin Negative (Negative); Blood Trace-intact (Negative); Clarity Clear (Clear); Glucose Negative (Negative); Ketones Negative (Negative); Leukocyte Esterase Negative (Negative); Nitrite Negative (Negative); Urobilinogen 0.2 mg/dL (Up to 0.2)
[2024-05-05 22:46] LABS: Bacteria Rare HPF (Negative); C & S Indicated? No; Casts Negative LPF (Negative); Crystals Negative HPF (Negative); Epithelial Cells Few HPF (Negative); Mucus Negative (Negative); RBC 0-2 HPF (0-2); WBC Negative HPF (0-5)
--- NOTE | 2024-05-05 23:00 | DI.CT_ITS ---
Exam(s) CT ABDOMEN PELVIS W EXAM: CT ABDOMEN PELVIS W CLINICAL HISTORY: suprapubic pain, right flank pain, hematuria. TECHNIQUE: Imaging Protocol: Axial computed tomography images with coronal and sagittal reformatted images were created and reviewed CONTRAST MATERIAL: Intravenous: Omnipaque 350 Contrast volume:75 ml Oral: no COMPARISON: CT CT ABDOMEN PELVIS CTA from 02/22/2024 FINDINGS: ABDOMEN and PELVIS: Lung Bases: No acute findings. Small hiatal hernia. Liver: Normal density. No suspicious mass. Gallbladder and biliary tract: Status post cholecystectomy. No biliary dilation. Pancreas: Normal density. No abnormal calcifications or inflammatory process. No evidence of mass. Spleen: Normal. Kidneys: Normal size, contour and axis. No radiodense stones. No obstructive uropathy. Stable cyst lower pole right kidney. No suspicious masses seen. Adrenal glands: No masses seen. Vasculature: Abdominal aorta non-dilated. Soft tissues: Unremarkable. Bladder: Nearly empty. Not well evaluated. Bowel: No obstruction. No bowel wall thickening. Appendix normal. Normal quantity of stool. Peritoneal cavity: No ascites. No focal collection. No mesenteric inflammatory response. No free air . Bones: Mild degenerative changes and mild scoliosis.. Reproductive organs: Status post hysterectomy. Stable small left ovarian cyst. Lymph nodes: No pathologically enlarged lymph nodes. IMPRESSION:: No acute abnormality in the abdomen or pelvis. The bladder is nearly empty and not well evaluated. RADIATION DOSE DELIVERED: 617.1mGy.cm Total DLP DATA REPOSITORY: All CT scans at this facility are submitted to the National Radiology Data Registry (NRDR) Dose Index Registry (DIR) with the [employer] (ACR). RADIATION OPTIMIZATION: All CT scans at this facility use at least one of these dose optimization te chniques: automated exposure control; mA and/or kV adjustment per patient size (includes targeted exa ms where dose is matched to clinical indication); or iterative reconstruction.
[2024-05-05] MEDS: Ketorolac 15 MG/ML VIAL IVP (23:10)
[2024-05-05] MEDS: Acetaminophen 500 MG TAB 1000 MG PO (23:10)
[2024-05-05 23:15] LABS: Lactate 0.8 mmol/L (<or=2.0)
[2024-05-05 23:17] LABS: Abs Immature Grans 0.02 10^3/uL (0.0-0.06); Absolute Basophil Count 0.02 10^3/uL (0.0-0.2); Absolute Lymphocyte Count 0.77 10^3/uL (1.2-3.4); Absolute Neutrophil Count 4.77 10^3/uL (1.2-6.7); Basophils % 0.3 %; Eosinophils % 1.6 %; HCT 36.4 % (36.0-46.0); HGB 11.4 g/dL (11.2-15.7); Immature Grans % 0.3 %; Lymphocytes % 12.7 %; MCH 24.5 pg (27.0-33.0); MCHC 31.3 % (32.0-36.0); MCV 78 fL (80-95); MPV 10.8 fL (8.0-11.0); Monocytes % 6.6 %; Neutrophils % 78.5 %; Platelet Count 226 10^3/uL (130-400); RBC 4.65 10^6/uL (3.93-5.22); RDW 15.9 % (11.7-14.6); RDW-SD 44.9 fL; WBC 6.08 10^3/uL (4.4-10.8)
[2024-05-05 23:36] LABS: ALT 31 U/L (14-59); AST 30 U/L (15-37); Albumin 3.6 g/dL (3.4-5.0); Alkaline Phosphatase 108 U/L (46-116); Anion Gap 5.5 mmol/L (3-11); BUN 7 mg/dL (7-18); Bilirubin, Total 0.33 mg/dL (0.2-1.0); CO2 30.5 mmol/L (21.0-32.0); CREATININE 1.1 mg/dL (0.55-1.02); Calcium 9.1 mg/dL (8.5-10.1); Chloride 104 mmol/L (98-107); Estimated GFR 61.22 (mL/min/1.73m2); Glucose 138 mg/dL (74-106); Potassium 3.3 mmol/L (3.5-5.1); Sodium 140 mmol/L (136-145); Total Protein 7.4 g/dL (6.4-8.2)
[2024-05-05] MEDS: Omnipaque 350 MG/ML 100 ML BTL IJ (23:48)
[2024-05-05] MEDS: Normal Saline - Diluent 50 ML VIAL IJ (23:49)
[2024-05-05 23:50] VITALS: TEMP 37.7
[2024-05-05] MEDS: Normal Saline Flush 10 ML SYR IVP (23:50)
[2024-05-05 23:54] LABS: COVID-19 PCR Negative (Negative); Influenza B PCR Negative (Negative); RSV PCR Negative (Negative); Source Nasopharynx
[2024-05-05 23:59] LABS: Influenza A PCR Positive (Negative)
[2024-05-06 00:01] LABS: Procalcitonin < 0.10 ng/mL
[2024-05-06] MEDS: cefTRIAXone 1 GM/50 ML BAG IVPB (00:16)
--- NOTE | 2024-05-06 01:21 | DI.VRAD_ITS ---
PROCEDURE INFORMATION: Exam: CT Abdomen And Pelvis With Contrast Exam date and time: 05/05/2024 11:50 PM Age: 49 years old Clinical indication: Abdominal pain; Prior surgery; Surgery date: 6+ months; Surgery type: Hysterectomy, cholecystectomy, discectomy; Suprapubic pain, right flank pain, hematuria TECHNIQUE: Imaging protocol: Computed tomography of the abdomen and pelvis with contrast. Radiation optimization: All CT scans at this facility use at least one of these dose optimization techniques: automated exposure control; mA and/or kV adjustment per patient size (includes targeted exams where dose is matched to clinical indication); or iterative reconstruction. Contrast material: OMNIPAQUE 350; Contrast volume: 75 ml; Contrast route: INTRAVENOUS (IV); COMPARISON: CT ABDOMEN PELVIS CTA 02/22/2024 9:49 AM. Report not available. FINDINGS: Diaphragm: Small hiatal hernia. Liver: No focal hepatic lesion identified. Gallbladder and biliary ducts: Cholecystectomy. Pancreas: No CT evidence for acute pancreatitis. Spleen: Borderline splenomegaly. Adrenal glands: No mass. Kidneys and ureters: Right renal cysts. No hydronephrosis or CT evidence for pyelonephritis. Stomach and bowel: Duodenal diverticulum. No intestinal obstruction is evident. Fluid in nondilated small bowel, nonspecific. Appendix: No evidence of appendicitis. Intraperitoneal space: No free air. Vasculature: No abdominal aortic aneurysm. Lymph nodes: Nonspecific mesenteric lymph nodes. Urinary bladder: The urinary bladder appears mildly thickened but is incompletely distended. Reproductive: Uterus absent. 2.3 cm cystic mass superolateral to the left ovary, unchanged. Bones/joints: No pertinent acute abnormality seen. Soft tissues: No pertinent acute abnormality seen. IMPRESSION: 1. Thickening of the urinary bladder may be secondary to incomplete distension. Underlying cystitis, muscular hypertrophy, or neoplasm not excluded. Please correlate clinically. 2. Additional findings as above. Dictated and Authenticated by: Michelle Mckeon MD. Orderin Rowdy Werner MD
--- NOTE | 2024-05-06 01:30 | W.ED.GENAD ---
Discharge Plan Disposition Patient Disposition: Home Condition: Good Discharge Details Clinical Impression: Influenza A, Renal cyst, Hematuria Primary Care Provider: BELTRAN JHAVERI ED Provider: Debbi eRno Home Meds and New Rx's Prescriptions: Continued docusate sodium 100 mg capsule 100 mg PO TID fluticasone propion-salmeterol [Advair HFA] 230-21 mcg/actuation HFA aerosol inhaler 2 puff inhalation BID albuterol sulfate 90 mcg/actuation HFA aerosol inhaler 2 puff inhalation Q6H PRN clonazepam 0.5 mg tablet 0.5 mg PO DAILY PRN epinephrine 0.3 mg/0.3 mL auto-injector 0.3 mg IM ONCE Rx Instructions: as a single dose; may repeat once potassium chloride [Klor-Con] 20 mEq packet 20 meq PO DAILY Linzess 72 mcg capsule 72 mcg PO DAILY Spiriva Respimat 1.25 mcg/actuation mist 2 puff inhalation DAILY acetaminophen [Tylenol Extra Strength] 500 mg tablet 500 mg PO Q6H PRN dexlansoprazole [Dexilant] 30 mg capsule,biphase delayed releas 30 mg PO DAILY Qty: 30 6RF famotidine 20 mg tablet 20 mg PO BID bupropion HCl 300 mg tablet extended release 24 hr 300 mg PO QAM lithium carbonate 300 mg tablet extended release 300 mg PO HS Patient Comments: TAKE 1 TABLET BY MOUTH IN THE EVENING sumatriptan succinate 50 mg tablet 50 mg PO ONCE PRN Patient Comments: TAKE ONE TABLET BY MOUTH AT ONSET OF HEADACHE, MAY REPEAT IN TWO HOURS IF NECESSARY NOT TO EXCEED 2 TABLETS IN 24 HOURS Januvia 100 mg tablet 100 mg PO DAILY Patient Comments: TAKE ONE TABLET BY MOUTH EVERY DAY IN THE MORNING cholecalciferol (vitamin D3) 50 mcg (2,000 unit) capsule 50 mcg PO DAILY Patient Comments: TAKE TWO CAPSULES BY MOUTH EVERY DAY escitalopram oxalate 20 mg tablet 20 mg PO DAILY AM Patient Comments: TAKE 1 TABLET BY MOUTH ONCE DAILY midodrine 2.5 mg tablet 2 tab PO TID Patient Comments: TAKE 2 TABLETS BY MOUTH THREE TIMES DAILY Discontinued sucralfate [Carafate] 1 gram tablet 1 g PO QID Qty: 120 12RF cetirizine 10 mg tablet 10 mg PO DAILY PRN quetiapine 300 mg tablet 300 mg PO QHS Gemtesa 75 mg tablet 75 mg PO DAILY Qty: 30 1RF lidocaine 5 % adhesive patch,medicated 1 patch topical DAILY Qty: 30 0RF Rx Instructions: leave on most painful area for up to 12 hrs Discharge Instructions Instructions: Flu, Adult ED, Blood in Urine (Hematuria), Adult ED Additional Instructions: You have the flu. Please take tylenol and ibuprofen at home for your symptoms. Isolate until you are fever free for 24 hours without medication. You also have some cysts on your right kidney. The blood in your urine may be related to this. Please follow with urology; they will call you to schedule an appointment. If you do not hear from them tomorrow, please call the office. Call your primary care doctor tomorrow to schedule an appointment to be seen within the next 72 hours to followup on your visit here. Return to the emergency department for new or worsening symptoms including dificulty breathing, fever that does not respond to medication, uncontrolled pain, or if you have any other concerns. Stand Alone Forms: Work Release Referrals: BELTRAN JHAVERI [employer] [Primary Care Provider] - HPI General Mode of arrival: ambulatory. Date/Time Provider Initiated Documentation: 05/05/24 22:09. Limitations to Documentation: no limitations. Information obtained by: patient. HPI Narrative: 49yo F with hx DM, bipolar, GERD, presenting for hematuria and right flank pain. Symptoms started today. Pain is dull and radiates down torwards her umbilicus. Some pain with urination and has noticed blood in her urine and when wiping after voiding. No constipation, diarrhea, dark stool, or blood in her stool. Also has some diffuse lower abdominal cramping; states she frequently has this but is worse today and 'different' (unable to clarify how it is different). Has felt warm but not checked her temp at home. Mild nausea, no vomiting. Otherwise in her usual state of health with no chills, rash, chest pain, shortness of breath, cough, rhinnorhea, or other concerns. Related Data Home Medications ?Medication ?Instructions ?Recorded ?Confirmed cholecalciferol (vitamin D3) 50 50 mcg PO DAILY 02/14/21 05/05/24 mcg (2,000 unit) capsule escitalopram oxalate 20 mg tablet 20 mg PO DAILY AM 11/12/21 05/05/24 midodrine 2.5 mg tablet 2 tab PO TID 11/12/21 05/05/24 lithium carbonate 300 mg 300 mg PO HS 03/19/22 05/05/24 tablet,extended release albuterol sulfate 90 mcg/actuation 2 puff inhalation Q6H PRN 05/01/23 05/05/24 aerosol inhaler clonazepam 0.5 mg tablet 0.5 mg PO DAILY PRN 05/01/23 05/05/24 epinephrine 0.3 mg/0.3 mL 0.3 mg IM ONCE 05/01/23 05/05/24 injection, auto-injector fluticasone propionate 230 2 puff inhalation BID 05/01/23 05/05/24 mcg-salmeterol 21 mcg/actuation HFA inhaler (Advair HFA) linaclotide 72 mcg capsule 72 mcg PO DAILY 05/01/23 05/05/24 (Linzess) potassium chloride 20 mEq oral 20 meq PO DAILY 05/01/23 05/05/24 packet (Klor-Con) tiotropium bromide 1.25 2 puff inhalation DAILY 05/01/23 05/05/24 mcg/actuation mist for inhalation (Spiriva Respimat) docusate sodium 100 mg capsule 100 mg PO TID 08/13/23 05/05/24 acetaminophen 500 mg tablet 500 mg PO Q6H PRN 09/06/23 05/05/24 (Tylenol Extra Strength) dexlansoprazole 30 mg 30 mg PO DAILY #30 caps 09/06/23 05/05/24 capsule,biphase delayed release (Dexilant) sitagliptin phosphate 100 mg 100 mg PO DAILY 12/26/23 05/05/24 tablet (Januvia) sumatriptan succinate 50 mg tablet 50 mg PO ONCE PRN 12/26/23 05/05/24 bupropion HCl 300 mg 24 hr tablet, 300 mg PO QAM 02/20/24 05/05/24 extended release famotidine 20 mg tablet 20 mg PO BID 02/20/24 05/05/24 Previous Rx's ?Medication ?Instructions ?Recorded dexlansoprazole 30 mg 30 mg PO DAILY #30 caps 09/06/23 capsule,biphase delayed release (Dexilant) Allergies Allergy/AdvReac Type Severity Reaction Status Date / Time venom-honey bee Allergy Severe Other (See Verified 05/05/24 22:04 Comment) Sulfa (Sulfonamide Allergy HIVES Verified 05/05/24 22:04 Antibiotics) General Stated Complaint: Urinary MIKE: 3 Review of Systems Narrative: see HPI Exam Narrative Exam Narrative: General: Alert, well appearing, well nourished, in no acute distress. Head: Normocephalic, atraumatic Neck: Trachea midline, ?Neck supple. ENT: ?MMM.? No oropharygeal lesions or exudate. Cardiac: ?RRR, no murmurs appreciated Resp: No respiratory distress. CTAB. Abd: ?Soft, non-distended, mild suprapubic tenderness to palpation : ?No suprapubic tenderness. + CVA tenderness. on the right Extremities: ?No deformities.? No peripheral edema. Neurologic: GCS 15. ? Moves all extremities freely against gravity Course Vital Signs Vital signs: Vital Signs Temperature 38.2 C H 05/05/24 22:01 Pulse 99 H 05/05/24 22:01 Respiratory Rate 16 05/05/24 22:01 Blood Pressure 144/80 H 05/05/24 22:01 Pulse Oximetry 96 05/05/24 22:01 Temperature 37.7 C H 05/05/24 23:50 Temperature Source Oral 05/05/24 23:50 Pulse 99 H 05/05/24 22:01 Respiratory Rate 16 05/05/24 22:01 Blood Pressure 144/80 H 05/05/24 22:01 Blood Pressure Position Sitting 05/05/24 22:01 Pulse Oximetry 96 05/05/24 22:01 Oxygen Delivery Method Room Air 05/05/24 22:01 Oxygen Flow Rate 0 05/05/24 22:01 Pain Level 9 05/05/24 22:01 Lab/Test Results Lab/Test Results: 05/05/24 23:30 Blood Blood Culture - Pending 05/05/24 23:08 Blood Blood Culture - Pending Laboratory Tests Range/Units 05/05/24 05/05/24 05/05/24 22:14 23:08 23:11 WBC (4.4-10.8) 10^3/uL 6.08 RBC (3.93-5.22) 10^6/uL 4.65 Hgb (11.2-15.7) g/dL 11.4 Hct (36.0-46.0) % 36.4 MCV (80-95) fL 78 L MCH (27.0-33.0) pg 24.5 L MCHC (32.0-36.0) % 31.3 L RDW (11.7-14.6) % 15.9 H Plt Count (130-400) 10^3/uL 226 MPV (8.0-11.0) fL 10.8 Immature Gran % % 0.3 Neutrophils % % 78.5 Lymphocytes % % 12.7 Monocytes % % 6.6 Eosinophils % % 1.6 Basophils % % 0.3 Nucleated RBC % (0.0-0.3) % 0.0 Absolute Neutrophils (1.2-6.7) 10^3/uL 4.77 Absolute Lymphocytes (1.2-3.4) 10^3/uL 0.77 L Absolute Monocytes (0.1-0.8) 10^3/uL 0.40 Absolute Eosinophils (0.0-0.7) 10^3/uL 0.10 Absolute Basophils (0.0-0.2) 10^3/uL 0.02 VBG Lactate (<or=2.0) mmol/L 0.8 Sodium (136-145) mmol/L 140 Potassium (3.5-5.1) mmol/L 3.3 L Chloride (98-107) mmol/L 104 Carbon Dioxide (21.0-32.0) mmol/L 30.5 Anion Gap (3-11) mmol/L 5.5 BUN (7-18) mg/dL 7 Creatinine (0.55-1.02) mg/dL 1.1 H Est GFR (CKD-EPI 2020) (mL/min/1.73m2) 61.22 Glucose (74-106) mg/dL 138 H Calcium (8.5-10.1) mg/dL 9.1 Total Bilirubin (0.2-1.0) mg/dL 0.33 AST (15-37) U/L 30 ALT (14-59) U/L 31 Alkaline Phosphatase (46-116) U/L 108 Total Protein (6.4-8.2) g/dL 7.4 Albumin (3.4-5.0) g/dL 3.6 Procalcitonin ng/mL < 0.10 Urine Color (Yellow) Yellow Urine Clarity (Clear) Clear Urine pH (5-8) 6.0 Ur Specific [place] (1.005-1.025) 1.010 Urine Protein (Neg-Trace) mg/dL Negative Urine Ketones (Negative) mg/dL Negative Urine Blood (Negative) Trace-intact H Urine Nitrite (Negative) Negative Urine Bilirubin (Negative) Negative Urine Urobilinogen (Up to 0.2) mg/dL 0.2 Ur Leukocyte Esterase (Negative) Negative Urine RBC (0-2) HPF 0-2 Urine WBC (0-5) HPF Negative Ur Epithelial Cells (Negative) HPF Few Urine Crystals (Negative) HPF Negative Urine Bacteria (Negative) HPF Rare Urine Casts (Negative) LPF Negative Urine Mucus (Negative) Negative Ur Culture Indicated? No Urine Glucose (Negative) mg/dL Negative COVID-19 Source Nasopharynx SARS-CoV-2 (PCR) (Negative) Negative Influenza Type A (PCR) (Negative) Positive A Influenza Type B (PCR) (Negative) Negative RSV (PCR) (Negative) Negative Medical Decision Making 49yo F with hx DM, bipolar, GERD, presenting for hematuria and right flank pain. Febrile to 38.2 and tachycardiac to 99 on arrival, vital signs otherwise reassuring. Suprapubic and rt CVA tenderness on exam. qSOFA 0, unlikely sepsis. History and exam suggestive of pyelonephritits; will great with IV ceftriaxone as well as tylenol, toradol, while awaiting results of workup. Labs reviewed as below, CBC reassuring with no leukocytsois or anemia, CMP with mild hypokalemia and no actionable abnormalities, lactate normal, procal negative, UA with hematuria and no indication of infection. Given high community prevalence, respiratory viral swabs sent and + for influenza A. CT independently reviewed, right renal lesion on my view with no bowel obstruction or free fluid; radiology read below with right renal cysts. On reassessment she reports pain has much improved. Normal vital signs. With no indication of infection on UA, suspect fever/tachycardia/nausea due to influenza A. Flank pain may be related to renal cyst (as well as her hematuria). She is in no respiratory distress. Advised symptomatic treatment at home for flu and PCP followup for hypokalemia, and urology followup for cyst/hematuria. Discharged home; discharge instructions and return precautions were reviewed with patient who verbalized understanding. All questions were answered and she is in full agreement with the plan. Imaging Data Radiologic Study: Imaging: CT Scan Radiologist's impression: Kidneys and ureters: Right renal cysts. No hydronephrosis or CT evidence for pyelonephritis. IMPRESSION: 1. Thickening of the urinary bladder may be secondary to incomplete distension. Underlying cystitis, muscular hypertrophy, or neoplasm not excluded. Please correlate clinically. 2. Additional findings as above. Quality:[facility] Health Related Social Needs: No Data to Display PFSH All Active Problems (Updated 05/06/24 @ 01:37 by Debbi Reno MD) Hematuria (Acute) Renal cyst (Acute) Influenza A (Acute) No-show for appointment (Acute) Rectal bleeding (Acute) Suprapubic pain (Acute) Hiatal hernia with GERD (Acute) Chronic erosive gastritis (Acute) Bipolar 2 disorder (Chronic) Type 2 diabetes mellitus with peripheral neuropathy (Acute) Chest pain, unspecified (Acute) Anxiety (Chronic) Psychologic conversion disorder (Acute) Urinary incontinence (Acute) Seasonal affective disorder (Acute) Tinea pedis (Acute) Onychomycosis (Acute) PVD (peripheral vascular disease) (Chronic) Nail dystrophy (Acute) Type 2 diabetes mellitus (Chronic) Shortness of breath (Acute) Muscle pain (Acute) Atypical chest pain (Acute) GERD (gastroesophageal reflux disease) (Chronic) Nausea and vomiting in adult (Acute) Abnormal CT of the abdomen (Acute) N&V (nausea and vomiting) (Acute) Hypokalemia (Acute) Right lower quadrant abdominal pain (Acute) Gastroesophageal reflux disease (Chronic) Asthma (Chronic) Depression (Chronic) Takes Fluoxetine 20mg QD with good impact on her depression, denies any SI. Encouraged to continue. to try to tame a saray. Medical History RLQ abdominal tenderness Pre-syncope Orthostatic hypotension Nonspecific paroxysmal spell Dizziness Vertigo Gallstones without obstruction of gallbladder Calculus of gallbladder with chronic cholecystitis without obstruction Pacemaker Gestational diabetes mellitus High ankle sprain of right lower extremity Acne (04/21/13) Back pain Taking prednisone 60mg QD for 4 days. Currently on day 2. Not feeling it is making much of a difference but she was encouraged to take for the full 4 days. Also suggested she take the muscle relaxer only PRN as it makes her quite drowsy. Encouraged to take at night. To help with rest. Other valenzuela, suggested she increse Aleve to AM & PM dose, then supplement with 1000mg Acetaminophen every 4-6 hours up to a total of 4000mg/day. Suggested ice might help more than heat but either should be limited to only 20 minutes at a time. Use topicals (Sol[place]as Gel or Aspercreame with Lidocaine seem to be quite helpful. Try to avoid sitting or standing still for prolonged periods of time. Walking on flat ground is encourage. Surgical History History of cholecystectomy (~03/2019) History of esophagogastroduodenoscopy (EGD) (~07/2022) History of hysterectomy History of bilateral ligation of fallopian tubes History of discectomy Status post dilation and curettage S/P endometrial ablation irregular bleeding has restarted, neg EM bx 01/2016 discectomy (~2003) Ligation of fallopian tube Endometrial Ablation (~2009) Dilation and curettage X 2 with losses ANAL SURGERY surgical drainage of anal fissure Family History Mother Hyperlipidemia Thyroid disorder Father Essential hypertension Diabetes Personal history of malignant neoplasm prostate Heart disease Hyperlipidemia Myocardial infarction Social History Smoking/Tobacco Use Status: Former Tobacco Use Quit Date: 04/02/22 Tobacco: How many years used: 20 Smoking risk assessment performed?: Yes Alcohol Intake: never Drug use: Never Substance use type: does not use Household members: family and other Details: Lives with demented mother and her brother Housing: house current occupation: [employer]; [employer]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
[2024-05-06 01:52] VITALS: BP 127/66; PULSE 75; RESP 22; TEMP 37.1; O2SAT 97
--- NOTE | 2024-05-07 07:23 | W.ED.FU ---
Date of service: 05/07/24 Time of Service: 07:23 Follow Up Plan: Patient is 1 blood culture bottle growing gram-positive cocci, chart reviewed and had no leukocytosis and was flu positive. Her main complaint is flank pain. Suspect this is a contaminant, will wait for speciation to return or if other blood culture bottles have any growth will then contact patient
== END 2024-05-06 01:55 | disposition home or self-care (01) ==
PROVIDERS: Emergency Provider Student in an Organized Health Care Education/Training Program; PCP Nurse Practitioner Family
DX: J10.1 Influenza due to other identified influenza virus with other respiratory manifestations (principal); N28.1 Cyst of kidney, acquired; R31.9 Hematuria, unspecified; Z95.0 Presence of cardiac pacemaker
CPT/HCPCS: 36415; 80053; 84145; 87040; 87077; 87637; 96365; 96375; 99285; 74177; 81003; 81015; 83605; 85025; 87186; J0696; J1885; J3490

== ENCOUNTER → 2024-05-22 14:59 | Outpatient (BNVA) | payer MEDICARE, MEDICAID, SELFPAY | PROVIDERS: PCP Nurse Practitioner Family; Referring Provider Nurse Practitioner Family; Visit Provider Nurse Practitioner Gerontology | DX: N39.46 Mixed incontinence (principal); N28.1 Cyst of kidney, acquired; R31.9 Hematuria, unspecified | CPT/HCPCS: 51798; 99213 ==

== ENCOUNTER 2024-07-11 00:20 | Outpatient (CLI) | payer MEDICARE, MEDICAID, SELFPAY ==
--- NOTE | 2024-07-11 | DI.MRI_ITS ---
Exam(s) MR UPPER JOINT RT WO EXAM: MR UPPER JOINT RT WO CLINICAL HISTORY: M25.511 Pain in RT shoulder. TECHNIQUE: Multiplanar multisequence MRI was performed. COMPARISON: MR MR SHOULDER RIGHT WO CONTR from 11/22/2021 MR MR SHOULDER RIGHT WO CONTR from 12/22/2021 CR,XR XR SHOULDER RT COMPLETE 2+V from 02/01/2024 FINDINGS: The examination is limited due to patient motion artifact. BONES: There is no fracture or contusion pattern. There is again seen a cystic lesion in the acromion . This is unchanged. JOINTS: There are mild degenerative changes seen at the acromioclavicular joint. There is no signifi cant joint effusion. There is thinning of the articular cartilage over the glenoid suggesting arthro sis. TENDONS: Supraspinatus: There are mild hyperintense T2 signal changes at the musculotendinous junction of the supraspinatus tendon. There is again seen a focus of T2 hyperintensity at the insertion site of the supraspinatus tendon anteriorly. The findings appear similar compared to the prior examination. Infraspinatus: Unremarkable. Subscapularis: Unremarkable. Teres Minor: Unremarkable. Biceps and [place]: Unremarkable. MUSCLES: Unremarkable. GLENOID LABRUM: Unremarkable on this noncontrast examination. SOFT TISSUES: Unremarkable. LIGAMENTS: Unremarkable. OTHER: There is a tiny amount of fluid still seen in the subacromial subdeltoid bursa. IMPRESSION: 1. Tendinosis of the supraspinatus tendon with a stable tiny articular surface tear of the supraspina tus tendon anteriorly at its insertion site. 2. Tiny amount of fluid in the subacromial subdeltoid bursa. 3. Mild degenerative changes in the acromioclavicular joint. DATA REPOSITORY:
== END 2024-07-11 00:40 ==
LOC: DI 00:20
PROVIDERS: PCP Nurse Practitioner Family; Visit Provider Nurse Practitioner Family
DX: M25.511 Pain in right shoulder (principal)
CPT/HCPCS: 73221

== ENCOUNTER 2024-07-31 06:11 | Emergency (ER) | payer MEDICARE, MEDICAID, SELFPAY ==
[2024-07-31 06:13] VITALS: BP 158/90; PULSE 88; RESP 18; TEMP 36.7; O2SAT 97
--- NOTE | 2024-07-31 06:15 | W.ED.GENAD ---
Discharge Plan Disposition Patient Disposition: Home Condition: Good Discharge Details Clinical Impression: Migraine headache Primary Care Provider: BELTRAN JHAVERI ED Provider: Michael Fermin [place] Meds and New Rx's Prescriptions: No Action docusate sodium 100 mg capsule 100 mg PO TID fluticasone propion-salmeterol [Advair HFA] 230-21 mcg/actuation HFA aerosol inhaler 2 puff inhalation BID albuterol sulfate 90 mcg/actuation HFA aerosol inhaler 2 puff inhalation Q6H PRN clonazepam 0.5 mg tablet 0.5 mg PO DAILY PRN epinephrine 0.3 mg/0.3 mL auto-injector 0.3 mg IM ONCE Rx Instructions: as a single dose; may repeat once potassium chloride [Klor-Con] 20 mEq packet 20 meq PO DAILY Linzess 72 mcg capsule 72 mcg PO DAILY Spiriva Respimat 1.25 mcg/actuation mist 2 puff inhalation DAILY acetaminophen [Tylenol Extra Strength] 500 mg tablet 500 mg PO Q6H PRN dexlansoprazole [Dexilant] 30 mg capsule,biphase delayed releas 30 mg PO DAILY Qty: 30 6RF famotidine 20 mg tablet 20 mg PO BID bupropion HCl 300 mg tablet extended release 24 hr 300 mg PO QAM estradiol 0.01 % (0.1 mg/gram) cream 1 g vaginal DIRECTED Qty: 60 10RF Rx Instructions: Apply a pea sized amount vaginally nightly for 2 weeks, then reduce to 2-3 times per week Gemtesa 75 mg tablet 75 mg PO DAILY Qty: 90 10RF lithium carbonate 300 mg tablet extended release 300 mg PO HS Patient Comments: TAKE 1 TABLET BY MOUTH IN THE EVENING sumatriptan succinate 50 mg tablet 50 mg PO ONCE PRN Patient Comments: TAKE ONE TABLET BY MOUTH AT ONSET OF HEADACHE, MAY REPEAT IN TWO HOURS IF NECESSARY NOT TO EXCEED 2 TABLETS IN 24 HOURS Januvia 100 mg tablet 100 mg PO DAILY Patient Comments: TAKE ONE TABLET BY MOUTH EVERY DAY IN THE MORNING cholecalciferol (vitamin D3) 50 mcg (2,000 unit) capsule 50 mcg PO DAILY Patient Comments: TAKE TWO CAPSULES BY MOUTH EVERY DAY escitalopram oxalate 20 mg tablet 20 mg PO DAILY AM Patient Comments: TAKE 1 TABLET BY MOUTH ONCE DAILY midodrine 2.5 mg tablet 2 tab PO TID Patient Comments: TAKE 2 TABLETS BY MOUTH THREE TIMES DAILY Discharge Instructions Instructions: Headache, Adult ED Additional Instructions: You were seen in the ED for headache and vomiting similar to previous migraine headaches. You were treated with fluids and medication with improvement. Go home and rest for the day, continue to hydrate. Follow-up with primary care as needed. Return to ED for any severe worsening headache, fever, neurologic change, persistent vomiting, other concerns. Referrals: BELTRAN JHAVERI, DYE MACHINE OPERATOR [Primary Care Provider] - [facility] General Mode of arrival: ambulatory. Date/Time Provider Initiated Documentation: 07/31/24 06:15. Limitations to Documentation: no limitations. Information obtained by: patient and RN notes reviewed. HPI Narrative: Patient presents to ED with complaint of headache and vomiting. Patient reports history of migraines. This feels like a typical migraine. Has been present for about 3 days with intermittent episodes of nausea and vomiting. Became dizzy and lightheaded after getting to work this morning. Did not have any loss of consciousness. Has no neurologic change. Denies any chest pain, shortness of breath, or abdominal pain. Has tried her sumatriptan without relief. Reports that she typically ends up in the ED for migraines like this when her medications do not work. Related Data Home Medications ?Medication ?Instructions ?Recorded ?Confirmed cholecalciferol (vitamin D3) 50 50 mcg PO DAILY 02/14/21 07/31/24 mcg (2,000 unit) capsule escitalopram oxalate 20 mg tablet 20 mg PO DAILY AM 11/12/21 07/31/24 midodrine 2.5 mg tablet 2 tab PO TID 11/12/21 07/31/24 lithium carbonate 300 mg 300 mg PO HS 03/19/22 07/31/24 tablet,extended release albuterol sulfate 90 mcg/actuation 2 puff inhalation Q6H PRN 05/01/23 07/31/24 aerosol inhaler clonazepam 0.5 mg tablet 0.5 mg PO DAILY PRN 05/01/23 07/31/24 epinephrine 0.3 mg/0.3 mL 0.3 mg IM ONCE 05/01/23 07/31/24 injection, auto-injector fluticasone propionate 230 2 puff inhalation BID 05/01/23 07/31/24 mcg-salmeterol 21 mcg/actuation HFA inhaler (Advair HFA) linaclotide 72 mcg capsule 72 mcg PO DAILY 05/01/23 07/31/24 (Linzess) potassium chloride 20 mEq oral 20 meq PO DAILY 05/01/23 07/31/24 packet (Klor-Con) tiotropium bromide 1.25 2 puff inhalation DAILY 05/01/23 07/31/24 mcg/actuation mist for inhalation (Spiriva Respimat) docusate sodium 100 mg capsule 100 mg PO TID 08/13/23 07/31/24 acetaminophen 500 mg tablet 500 mg PO Q6H PRN 09/06/23 07/31/24 (Tylenol Extra Strength) dexlansoprazole 30 mg 30 mg PO DAILY #30 caps 09/06/23 07/31/24 capsule,biphase delayed release (Dexilant) sitagliptin phosphate 100 mg 100 mg PO DAILY 12/26/23 07/31/24 tablet (Januvia) sumatriptan succinate 50 mg tablet 50 mg PO ONCE PRN 12/26/23 07/31/24 bupropion HCl 300 mg 24 hr tablet, 300 mg PO QAM 02/20/24 07/31/24 extended release famotidine 20 mg tablet 20 mg PO BID 02/20/24 07/31/24 estradiol 0.01% (0.1 mg/gram) 1 g vaginal DIRECTED #60 grams 06/04/24 07/31/24 vaginal cream vibegron 75 mg tablet (Gemtesa) 75 mg PO DAILY #90 tabs 06/04/24 07/31/24 Previous Rx's ?Medication ?Instructions ?Recorded dexlansoprazole 30 mg 30 mg PO DAILY #30 caps 09/06/23 capsule,biphase delayed release (Dexilant) estradiol 0.01% (0.1 mg/gram) 1 g vaginal DIRECTED #60 grams 06/04/24 vaginal cream vibegron 75 mg tablet (Gemtesa) 75 mg PO DAILY #90 tabs 06/04/24 Allergies Allergy/AdvReac Type Severity Reaction Status Date / Time venom-honey bee Allergy Severe Other (See Verified 07/31/24 06:22 Comment) Sulfa (Sulfonamide Allergy HIVES Verified 07/31/24 06:22 Antibiotics) General MIKE: 3 Exam Narrative Exam Narrative: Const: WDWN female in NAD. VS per triage. HEENT: NC/AT. Normal facial exam. Neck: Supple. Trachea midline. Lungs: Normal respiratory effort. Lungs are clear. Cor: RRR without murmur. Good radial pulses. GI: Soft/ND/NT. Neuro: A+O x 3. Normal speech, mentation, gait. Cranial nerves II - XII grossly intact. No gross motor or sensory deficit. Medical Decision Making Patient presenting to ED with complaint of migraine headache with associated nausea vomiting this morning lightheaded and dizziness. No neurologic change, chest pain, syncope, shortness of breath, abdominal pain. Reports headache similar to this many times in the past. Reports about 3 days of symptoms despite taking sumatriptan which usually helps. She is neurologically intact. Will plan IV access to give fluids given her report of intermittent vomiting and lightheadedness. Will treat headache with ketorolac and prochlorperazine. PFSH All Active Problems (Updated 07/31/24 @ 06:46 by Michael Fermin MD) Migraine headache (Chronic) Chronic erosive gastritis (Acute) Anxiety (Chronic) Psychologic conversion disorder (Acute) Urinary incontinence (Acute) Seasonal affective disorder (Acute) Tinea pedis (Acute) Onychomycosis (Acute) Nail dystrophy (Acute) Depression (Chronic) Takes Fluoxetine 20mg QD with good impact on her depression, denies any SI. Encouraged to continue. to try to tame a hoiurde. Medical History (Updated 07/31/24 @ 06:46 by Michael Fermin MD) Asthma PVD (peripheral vascular disease) Type 2 diabetes mellitus with peripheral neuropathy Bipolar 2 disorder Hiatal hernia with GERD Pacemaker Acne (04/21/13) Surgical History (Updated 07/31/24 @ 06:20 by Michael eFrmin MD) History of cholecystectomy (~03/2019) History of esophagogastroduodenoscopy (EGD) (~07/2022) History of hysterectomy History of bilateral ligation of fallopian tubes History of discectomy Status post dilation and curettage S/P endometrial ablation irregular bleeding has restarted, neg EM bx 01/2016 Dilation and curettage X 2 with losses ANAL SURGERY surgical drainage of anal fissure Family History Mother Hyperlipidemia Thyroid disorder Father Essential hypertension Diabetes Personal history of malignant neoplasm prostate Heart disease Hyperlipidemia Myocardial infarction Social History (Reviewed 10/05/23 @ 10:39 by ROBINSON Phillip Smoking/Tobacco Use Status: Former Tobacco Use Quit Date: 04/02/22 Tobacco: How many years used: 20 Smoking risk assessment performed?: Yes Alcohol Intake: never Drug use: Never Substance use type: does not use Household members: family and other Details: Lives with demented mother and her brother Housing: house 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
[2024-07-31 06:17] VITALS: BP 158/90; PULSE 88; RESP 18; TEMP 36.7; O2SAT 97
[2024-07-31] MEDS: Prochlorperazine 10 MG/2 ML VIAL IVP (06:43)
[2024-07-31] MEDS: Ketorolac 15 MG/ML VIAL IVP (06:43)
[2024-07-31] MEDS: Normal Saline 1,000 ML 1000 ML IV (06:49)
[2024-07-31 07:16] VITALS: BP 161/91; PULSE 91; RESP 18; O2SAT 98
--- NOTE | 2024-07-31 08:17 | W.EDPROG ---
Date of service: 07/31/24 Time of Service: 08:17 Medical Decision Making Care was signed out by Dr. Fermin, please see his documentation regarding initial ED presentation course. Plan at discharge was to reassess patient after IV fluid with plan for likely discharge. Patient noted by nursing to be feeling completely better and requesting discharge. Patient stable at time of discharge. Usual and customary discharge instructions were reviewed. Quality:SDOH Health Related Social Needs: No Data to Display Discharge Plan Disposition Patient Disposition: Home Condition: Stable Discharge Details Clinical Impression: Migraine headache Primary Care Provider: BELTRAN JHAVERI ED Provider: Dillon Dumont Home Meds and New Rx's Prescriptions: Continued docusate sodium 100 mg capsule 100 mg PO TID fluticasone propion-salmeterol [Advair HFA] 230-21 mcg/actuation HFA aerosol inhaler 2 puff inhalation BID albuterol sulfate 90 mcg/actuation HFA aerosol inhaler 2 puff inhalation Q6H PRN clonazepam 0.5 mg tablet 0.5 mg PO DAILY PRN epinephrine 0.3 mg/0.3 mL auto-injector 0.3 mg IM ONCE Rx Instructions: as a single dose; may repeat once potassium chloride [Klor-Con] 20 mEq packet 20 meq PO DAILY Linzess 72 mcg capsule 72 mcg PO DAILY Spiriva Respimat 1.25 mcg/actuation mist 2 puff inhalation DAILY acetaminophen [Tylenol Extra Strength] 500 mg tablet 500 mg PO Q6H PRN dexlansoprazole [Dexilant] 30 mg capsule,biphase delayed releas 30 mg PO DAILY Qty: 30 6RF famotidine 20 mg tablet 20 mg PO BID bupropion HCl 300 mg tablet extended release 24 hr 300 mg PO QAM estradiol 0.01 % (0.1 mg/gram) cream 1 g vaginal DIRECTED Qty: 60 10RF Rx Instructions: Apply a pea sized amount vaginally nightly for 2 weeks, then reduce to 2-3 times per week Gemtesa 75 mg tablet 75 mg PO DAILY Qty: 90 10RF lithium carbonate 300 mg tablet extended release 300 mg PO HS Patient Comments: TAKE 1 TABLET BY MOUTH IN THE EVENING sumatriptan succinate 50 mg tablet 50 mg PO ONCE PRN Patient Comments: TAKE ONE TABLET BY MOUTH AT ONSET OF HEADACHE, MAY REPEAT IN TWO HOURS IF NECESSARY NOT TO EXCEED 2 TABLETS IN 24 HOURS Januvia 100 mg tablet 100 mg PO DAILY Patient Comments: TAKE ONE TABLET BY MOUTH EVERY DAY IN THE MORNING cholecalciferol (vitamin D3) 50 mcg (2,000 unit) capsule 50 mcg PO DAILY Patient Comments: TAKE TWO CAPSULES BY MOUTH EVERY DAY escitalopram oxalate 20 mg tablet 20 mg PO DAILY AM Patient Comments: TAKE 1 TABLET BY MOUTH ONCE DAILY midodrine 2.5 mg tablet 2 tab PO TID Patient Comments: TAKE 2 TABLETS BY MOUTH THREE TIMES DAILY Discharge Instructions Instructions: Headache, Adult ED Additional Instructions: You were seen in the ED for headache and vomiting similar to previous migraine headaches. You were treated with fluids and medication with improvement. Go home and rest for the day, continue to hydrate. Follow-up with primary care as needed. Return to ED for any severe worsening headache, fever, neurologic change, persistent vomiting, other concerns. Stand Alone Forms: Work Release Referrals: BELTRAN JHAVERI CIVIL RIGHTS INVESTIGATOR [Primary Care Provider] - Discharge Data Discharge Date/Time-TO BE ENTERED AT DEPARTURE: 07/31/24 08:32
[2024-07-31 08:31] VITALS: BP 134/90; PULSE 91; RESP 18; O2SAT 97
== END 2024-07-31 08:32 | disposition home or self-care (01) ==
PROVIDERS: Emergency Provider Student in an Organized Health Care Education/Training Program; PCP Nurse Practitioner Family
DX: G43.909 Migraine, unspecified, not intractable, without status migrainosus (principal); E11.40 Type 2 diabetes mellitus with diabetic neuropathy, unspecified; Z95.0 Presence of cardiac pacemaker; Z79.84 Long term (current) use of oral hypoglycemic drugs; Z87.891 Personal history of nicotine dependence
CPT/HCPCS: 123; 96361; 96374; 96375; 99283; 99284; 00123; J0780; J1885

== ENCOUNTER 2024-08-15 21:51 | Emergency (ER) | payer MEDICARE, MEDICAID, SELFPAY ==
[2024-08-15] VITALS (14 sets, daily range): BP systolic 67–157; BP diastolic 16–86; PULSE 78–97; RESP 14–22; TEMP 36.9; O2SAT 96–100
[2024-08-15] MEDS: Albuterol 2.5 MG/3 ML INH SOLN VIAL UPD (22:13)
[2024-08-15] MEDS: FAMOTIDINE 20 MG/50 ML BAG 200 MG IVPB (22:13)
[2024-08-15] MEDS: Loratidine 10 MG TAB PO (22:13)
[2024-08-15] MEDS: Ibuprofen 400 MG TAB PO (22:13)
[2024-08-15] MEDS: methylPREDNISolone SUCC 125 MG VIAL IVP (22:14)
[2024-08-15] MEDS: Normal Saline 1,000 ML 1000 ML IV (22:14)
--- NOTE | 2024-08-15 22:29 | W.ED.GENAD ---
Discharge Plan Disposition Patient Disposition: Home Condition: Stable Discharge Details Clinical Impression: Allergic reaction to bee sting Primary Care Provider: BELTRAN JHAVERI ED Provider: Christopher Rasmussen Home Meds and New Rx's Prescriptions: Continued docusate sodium 100 mg capsule 100 mg PO TID albuterol sulfate 90 mcg/actuation HFA aerosol inhaler 2 puff inhalation Q6H PRN clonazepam 0.5 mg tablet 0.5 mg PO DAILY PRN epinephrine 0.3 mg/0.3 mL auto-injector 0.3 mg IM ONCE Rx Instructions: as a single dose; may repeat once potassium chloride [Klor-Con] 20 mEq packet 20 meq PO DAILY Linzess 72 mcg capsule 72 mcg PO DAILY Spiriva Respimat 1.25 mcg/actuation mist 2 puff inhalation DAILY acetaminophen [Tylenol Extra Strength] 500 mg tablet 500 mg PO Q6H PRN dexlansoprazole [Dexilant] 30 mg capsule,biphase delayed releas 30 mg PO DAILY Qty: 30 6RF famotidine 20 mg tablet 20 mg PO BID bupropion HCl 300 mg tablet extended release 24 hr 300 mg PO QAM estradiol 0.01 % (0.1 mg/gram) cream 1 g vaginal DIRECTED Qty: 60 10RF Rx Instructions: Apply a pea sized amount vaginally nightly for 2 weeks, then reduce to 2-3 times per week Gemtesa 75 mg tablet 75 mg PO DAILY Qty: 90 10RF quetiapine 300 mg tablet 300 mg PO QHS lithium carbonate 300 mg tablet extended release 300 mg PO HS Patient Comments: TAKE 1 TABLET BY MOUTH IN THE EVENING sumatriptan succinate 50 mg tablet 50 mg PO ONCE PRN Patient Comments: TAKE ONE TABLET BY MOUTH AT ONSET OF HEADACHE, MAY REPEAT IN TWO HOURS IF NECESSARY NOT TO EXCEED 2 TABLETS IN 24 HOURS Januvia 100 mg tablet 100 mg PO DAILY Patient Comments: TAKE ONE TABLET BY MOUTH EVERY DAY IN THE MORNING cholecalciferol (vitamin D3) 50 mcg (2,000 unit) capsule 50 mcg PO DAILY Patient Comments: TAKE TWO CAPSULES BY MOUTH EVERY DAY escitalopram oxalate 20 mg tablet 20 mg PO DAILY AM Patient Comments: TAKE 1 TABLET BY MOUTH ONCE DAILY midodrine 2.5 mg tablet 2 tab PO TID Patient Comments: TAKE 2 TABLETS BY MOUTH THREE TIMES DAILY Discharge Instructions Instructions: Insect allergy Additional Instructions: You were seen in the emergency department for the bee sting to your upper chest, you have no wheezing in your lungs, you are given Benadryl by EMS, we gave you for the antihistamines and steroids, you are stable throughout the visit, you are not having any anaphylactic reaction at this time. Please return home take an [id number] Claritin or Zyrtec for any minor symptoms tomorrow, return for any emergent concerns like shortness of breath, wheezing, tongue or lip swelling. Referrals: BELTRAN JHAVERI RESTAURANT SUPERVISOR [Primary Care Provider] - Discharge Data Discharge Date/Time-TO BE ENTERED AT DEPARTURE: 08/15/24 23:10 HPI General Date/Time Provider Initiated Documentation: 08/15/24 21:56. HPI Narrative: 49 year-old female presents to ED today by POV/ambulating with a chief complaint of bee sting to anterior upper chest while playing cornhole at a barbeque with onset about 1 hour prior to arrival, has history of bee venom allergy. Quality described as strange sensation in lower neck near the site, some redness, no radiation to respiratory distress, lip swelling, diffuse urticaria, wheezing, syncope, endorses mild nausea. Severity is described as moderate to severe. Palliating factors include nothing specific- given 50mg benadryl by EMS with some relief. Provoking factors include nothing specific. Events leading up to the incident/Associated Symptoms: Patient had an EpiPen but did not use it. Patient not anticoagulated. Related Data Home Medications ?Medication ?Instructions ?Recorded ?Confirmed cholecalciferol (vitamin D3) 50 50 mcg PO DAILY 02/14/21 08/15/24 mcg (2,000 unit) capsule escitalopram oxalate 20 mg tablet 20 mg PO DAILY AM 11/12/21 08/15/24 midodrine 2.5 mg tablet 2 tab PO TID 11/12/21 08/15/24 lithium carbonate 300 mg 300 mg PO HS 03/19/22 08/15/24 tablet,extended release albuterol sulfate 90 mcg/actuation 2 puff inhalation Q6H PRN 05/01/23 08/15/24 aerosol inhaler clonazepam 0.5 mg tablet 0.5 mg PO DAILY PRN 05/01/23 08/15/24 epinephrine 0.3 mg/0.3 mL 0.3 mg IM ONCE 05/01/23 08/15/24 injection, auto-injector linaclotide 72 mcg capsule 72 mcg PO DAILY 05/01/23 08/15/24 (Linzess) potassium chloride 20 mEq oral 20 meq PO DAILY 05/01/23 08/15/24 packet (Klor-Con) tiotropium bromide 1.25 2 puff inhalation DAILY 05/01/23 08/15/24 mcg/actuation mist for inhalation (Spiriva Respimat) docusate sodium 100 mg capsule 100 mg PO TID 08/13/23 08/15/24 acetaminophen 500 mg tablet 500 mg PO Q6H PRN 09/06/23 08/15/24 (Tylenol Extra Strength) dexlansoprazole 30 mg 30 mg PO DAILY #30 caps 09/06/23 08/15/24 capsule,biphase delayed release (Dexilant) sitagliptin phosphate 100 mg 100 mg PO DAILY 12/26/23 08/15/24 tablet (Januvia) sumatriptan succinate 50 mg tablet 50 mg PO ONCE PRN 12/26/23 08/15/24 bupropion HCl 300 mg 24 hr tablet, 300 mg PO QAM 02/20/24 08/15/24 extended release famotidine 20 mg tablet 20 mg PO BID 02/20/24 08/15/24 estradiol 0.01% (0.1 mg/gram) 1 g vaginal DIRECTED #60 grams 06/04/24 08/15/24 vaginal cream vibegron 75 mg tablet (Gemtesa) 75 mg PO DAILY #90 tabs 06/04/24 08/15/24 quetiapine 300 mg tablet 300 mg PO QHS 08/14/24 08/15/24 Previous Rx's ?Medication ?Instructions ?Recorded dexlansoprazole 30 mg 30 mg PO DAILY #30 caps 09/06/23 capsule,biphase delayed release (Dexilant) estradiol 0.01% (0.1 mg/gram) 1 g vaginal DIRECTED #60 grams 06/04/24 vaginal cream vibegron 75 mg tablet (Gemtesa) 75 mg PO DAILY #90 tabs 06/04/24 Allergies Allergy/AdvReac Type Severity Reaction Status Date / Time venom-honey bee Allergy Severe Other (See Verified 08/15/24 21:57 Comment) Sulfa (Sulfonamide Allergy HIVES Verified 08/15/24 21:57 Antibiotics) General Stated Complaint: InsectBite MIKE: 3 Review of Systems All systems reviewed & are unremarkable except as noted in HPI and below Exam Narrative Exam Narrative: GENERAL APPEARANCE: Well-nourished, non-toxic, awake and alert, atraumatic, no acute distress. SKIN: Warm, pink, dry, localized wheal to the left upper chest anteriorly around the first rib, no diffuse urticaria HEAD: Normocephalic, atraumatic, normal hair distribution for gender/age. EYES: Normal conjunctiva, no exudates on lids/lashes. ENT: Nares patent, no circumoral cyanosis, no facial swelling, no lip swelling, no tongue swelling NECK: Supple, trachea midline, painless cervical ROM. LUNGS/CHEST: Lungs CTA bilaterally-no wheezing, non-labored respirations, normal A/P diameter, symmetrical expansion, no chest wall deformity HEART (CV/PV): Regular rate and rhythm without murmur, no peripheral edema, no JVD. ABDOMEN: Soft, non-distended, no guarding. MSK: Normal ROM, no swelling/deformity to bilateral UEs or LEs, moving all extremities without weakness, no cyanosis, spine midline without tenderness, normal curvature. NEURO: Mental Status AAOx4 - alert to person, place, time, events No facial droop, no forehead involvement. Motor: No focal weakness - strength 5/5 in bilateral UEs and LEs, proximal and distal, symmetric. Sensory: sensation intact to light touch globally. Gait normal: patient ambulated without ataxia into ED room. PSYCH: euthymic, cooperative, pleasant, appropriate speech Course Vital Signs Vital signs: Vital Signs Temperature 36.9 C 08/15/24 21:52 Pulse 97 H 08/15/24 21:52 Respiratory Rate 08/15/24 21:52 Blood Pressure 157/76 H 08/15/24 21:52 Pulse Oximetry 100 08/15/24 21:52 Temperature 36.9 C 08/15/24 21:52 Pulse 97 H 08/15/24 21:52 Respiratory Rate 08/15/24 21:52 Blood Pressure 157/76 H 08/15/24 21:52 Blood Pressure Position Sitting 08/15/24 21:52 Pulse Oximetry 100 08/15/24 21:52 Oxygen Delivery Method Room Air 08/15/24 21:52 Oxygen Flow Rate 0 08/15/24 21:52 Medical Decision Making This dictation utilizes [id number] dictation software and may contain unedited grammatical errors. 49 year-old female presents to ED today by POV/ambulating with a chief complaint of bee sting to anterior upper chest while playing cornhole at a barbeque with onset about 1 hour prior to arrival, has history of bee venom allergy. Quality described as strange sensation in lower neck near the site, some redness, no radiation to respiratory distress, lip swelling, diffuse urticaria, wheezing, syncope, endorses mild nausea. Severity is described as moderate to severe. Palliating factors include nothing specific- given 50mg benadryl by EMS with some relief. Provoking factors include nothing specific. Events leading up to the incident/Associated Symptoms: Patient had an EpiPen but did not use it. Patients' medical history: PVD, asthma, T2DM, pacemaker. Family and social history: Noncontributory. Pertinent exam findings / vital signs include localized redness and wheal to sting area at the left first rib area anterior chest, no wheezing diffusely, no lip swelling or tongue swelling, no diffuse urticaria. Differential / pathologies of concern include allergic reaction, anaphylaxis. Diagnostic studies of: - None. Interventions of: - P.o. loratadine, 125 mg IVP Solu-Medrol, 400 mg p.o. ibuprofen, nebulizer treatment albuterol X1, 20 mg IVP famotidine, 1 L IVF NS. ED Course/Assessment/Plan: 49-year-old female was stung by a bee and has a localized allergic reaction with mild nausea, no evidence of any airway compromise or wheezing, no observed increase in tongue or lip swelling, was given significant antihistamines and steroid treatment here as well as NSAID, albuterol treatment and IV fluids and observed for multiple hours without increase in symptoms, counseled on strict return criteria for any worsening respiratory distress or oral swelling. Findings not consistent with anaphylaxis, airway compromise. Disposition of allergic reaction to bee sting. Patient verbalized understanding of the plan and return to ED criteria and engaged in shared decision making. Medical Records Medical records reviewed: Yes I reviewed the patient's medical records. Quality:SDOH Health Related Social Needs: No Data to Display PFSH All Active Problems (Updated 08/15/24 @ 22:30 by HOLLY Valladares) Allergic reaction to bee sting (Acute) Migraine headache (Chronic) Chronic erosive gastritis (Acute) Anxiety (Chronic) Psychologic conversion disorder (Acute) Urinary incontinence (Acute) Seasonal affective disorder (Acute) Tinea pedis (Acute) Onychomycosis (Acute) Nail dystrophy (Acute) Depression (Chronic) Takes Fluoxetine 20mg QD with good impact on her depression, denies any SI. Encouraged to continue. to try to tame a benyurde. Medical History (Updated 08/15/24 @ 22:30 by HOLLY Valladares) Asthma PVD (peripheral vascular disease) Type 2 diabetes mellitus with peripheral neuropathy Bipolar 2 disorder Hiatal hernia with GERD Pacemaker Acne (04/21/13) Surgical History (Updated 07/31/24 @ 06:20 by Michael Fermin MD) History of cholecystectomy (~03/2019) History of esophagogastroduodenoscopy (EGD) (~07/2022) History of hysterectomy History of bilateral ligation of fallopian tubes History of discectomy Status post dilation and curettage S/P endometrial ablation irregular bleeding has restarted, neg EM bx 01/2016 Dilation and curettage X 2 with losses ANAL SURGERY surgical drainage of anal fissure Family History Mother Hyperlipidemia Thyroid disorder Father Essential hypertension Diabetes Personal history of malignant neoplasm prostate Heart disease Hyperlipidemia Myocardial infarction Social History Smoking/Tobacco Use Status: Former Tobacco Use Quit Date: 04/02/22 Tobacco: How many years used: 20 Smoking risk assessment performed?: Yes Alcohol Intake: never Drug use: Never Substance use type: does not use Household members: family and other Details: Lives with demented mother and her brother Housing: house 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
== END 2024-08-15 23:10 | disposition home or self-care (01) ==
PROVIDERS: Emergency Provider Physician Assistant; PCP Nurse Practitioner Family
DX: T63.441A Toxic effect of venom of bees, accidental (unintentional), initial encounter (principal)
CPT/HCPCS: 99283; 99284; 96375; 94640; 96365; J2919; J7613

== ENCOUNTER → 2024-08-27 09:37 | Outpatient (BNVA) | payer MEDICARE, MEDICAID, SELFPAY | PROVIDERS: PCP Nurse Practitioner Family; Referring Provider Nurse Practitioner Family; Visit Provider Student in an Organized Health Care Education/Training Program | DX: M94.211 Chondromalacia, right shoulder (principal) | CPT/HCPCS: 99214 ==

== ENCOUNTER 2024-10-02 02:03 | Outpatient (CLI) | payer MEDICARE, MEDICAID, SELFPAY ==
--- NOTE | 2024-10-02 07:14 | DI.RAD_ITS ---
Exam(s) RF JOINT INJ. FLUORO GUID RAD EXAM: RF JOINT INJ. FLUORO GUID RAD CLINICAL HISTORY: R SHOULDER PAIN,fluoro guided injection,chondromalacia,m94.211. TECHNIQUE: 2D and realtime digital imaging was performed. CONTRAST MATERIAL: Intra-articular contrast COMPARISON: Prior relevant shoulder imaging studies reviewed. FINDINGS: This fluoroscopic guided right shoulder steroid injection was performed at the request of the referring orthopedic surgeon. Patient was consented prior to this procedure Patient was placed in the supine position on the fluoroscopy table. Using sterile technique and adequate skin-subcutaneous anesthesia, fluoroscopic guidance was used to advance a 22 gauge spinal needle into the glenohumeral joint using an anterior approach. Intra-articular position was confirmed with injection of 2 cc of Omnipaque 300. Thereafter a sterile solution of 40 milligram Depo-Medrol and 3 cc bupivacaine 0.5 percent was injected into the intra-articular compartment. Indwelling needle was removed. Band-Aid was applied. Patient tolerated this procedure well and there were no intraprocedural complications. IMPRESSION: Successful fluoroscopic guided right glenohumeral joint steroid injection. RADIATION DOSE DELIVERED: paulo Lopes=2.6mGy
[2024-10-02] MEDS: methylPREDNISolone ACETATE 40 MG/ML VIAL IM (12:04)
[2024-10-02] MEDS: Lidocaine 1% Pres-Free 30 ML VIAL IJ (12:04)
[2024-10-02] MEDS: Omnipaque 300 MG/ML 10 ML BTL 4 ML IJ (12:07)
[2024-10-02] MEDS: Bupivacaine 0.5% Pres-Free 10 ML VIAL 5 ML IJ (12:09)
== END 2024-10-02 02:23 ==
LOC: DI 02:03
PROVIDERS: PCP Nurse Practitioner Family; Visit Provider Student in an Organized Health Care Education/Training Program
DX: M25.511 Pain in right shoulder (principal); M94.211 Chondromalacia, right shoulder
CPT/HCPCS: 20610; 77002; J0665; J1010

== ENCOUNTER 2024-10-20 08:54 | Day surgery (SDC) | payer MEDICARE, MEDICAID, SELFPAY ==
--- NOTE | 2024-10-19 13:50 | W.PM.DSUDISC ---
Date of service: 10/20/24 Discharge Plan Disposition Patient Disposition: Home Condition: Good Discharge Details Reason For Visit: screening colonoscopy Attending Provider: Grant Ayala Primary Care Provider: BELTRAN JHAVERI Home Meds and New Rx's Prescriptions: Continued docusate sodium 100 mg capsule 100 mg PO TID albuterol sulfate 90 mcg/actuation HFA aerosol inhaler 2 puff inhalation Q6H PRN clonazepam 0.5 mg tablet 0.5 mg PO DAILY PRN epinephrine 0.3 mg/0.3 mL auto-injector 0.3 mg IM ONCE Rx Instructions: as a single dose; may repeat once potassium chloride [Klor-Con] 20 mEq packet 20 meq PO DAILY Linzess 72 mcg capsule 72 mcg PO DAILY Spiriva Respimat 1.25 mcg/actuation mist 2 puff inhalation DAILY acetaminophen [Tylenol Extra Strength] 500 mg tablet 500 mg PO Q6H PRN dexlansoprazole [Dexilant] 30 mg capsule,biphase delayed releas 30 mg PO DAILY Qty: 30 6RF famotidine 20 mg tablet 20 mg PO BID bupropion HCl 300 mg tablet extended release 24 hr 300 mg PO QAM estradiol 0.01 % (0.1 mg/gram) cream 1 g vaginal DIRECTED Qty: 60 10RF Rx Instructions: Apply a pea sized amount vaginally nightly for 2 weeks, then reduce to 2-3 times per week lithium carbonate 300 mg tablet extended release 300 mg PO HS Patient Comments: TAKE 1 TABLET BY MOUTH IN THE EVENING sumatriptan succinate 50 mg tablet 50 mg PO ONCE PRN Patient Comments: TAKE ONE TABLET BY MOUTH AT ONSET OF HEADACHE, MAY REPEAT IN TWO HOURS IF NECESSARY NOT TO EXCEED 2 TABLETS IN 24 HOURS Januvia 100 mg tablet 100 mg PO DAILY Patient Comments: TAKE ONE TABLET BY MOUTH EVERY DAY IN THE MORNING ipratropium-albuterol 0.5 mg-3 mg(2.5 mg base)/3 mL solution for nebulization 3 ml INHALATION 4XD PRN Patient Comments: INHALE CONTENTS OF 1 VIAL VIA NEBULIZER FOUR TIMES A DAY NEEDED FOR ASTHMA FLARE, COUGH, WHEEZING, OR FOR SHORTNESS OF BREATH meclizine 25 mg tablet 25 mg PO PRN Gemtesa 75 mg tablet 75 mg PO DAILY Patient Comments: TAKE 1 TABLET BY MOUTH EVERY DAY cholecalciferol (vitamin D3) 50 mcg (2,000 unit) capsule 50 mcg PO DAILY Patient Comments: TAKE TWO CAPSULES BY MOUTH EVERY DAY escitalopram oxalate 20 mg tablet 20 mg PO DAILY AM Patient Comments: TAKE 1 TABLET BY MOUTH ONCE DAILY midodrine 2.5 mg tablet 2 tab PO TID Patient Comments: TAKE 2 TABLETS BY MOUTH THREE TIMES DAILY Discontinued bisacodyl [Dulcolax (bisacodyl)] 5 mg tablet,delayed release (DR/EC) 5 mg PO ONCE Qty: 4 0RF Rx Instructions: Take per colonoscopy instructions provided by ordering providers office polyethylene glycol 3350 17 gram/dose powder 17 g PO ONCE Qty: 238 0RF Rx Instructions: Take per colonoscopy instructions provided by ordering providers office Discharge Instructions Instructions: Colon polyps Additional Instructions: Janessa, it was nice meeting you today, and I hope you feel well this afternoon. Things went very smoothly. I did find, and removed, single polyp today. This will be sent off for testing. Polyps, different varieties, and we use the information from the polyp analysis to help guide the timing of future colonoscopies. Those results will take about a week or so to get back, but once my office has that information we will be in touch. If you need anything in the meantime, please do not hesitate to ask. 1. If tolerated, consume a soft, low fiber diet for 1-2 days. 2. Do not drive, drink alcohol, operate machinery, make critical decisions, or do activities that require coordination or balance for 24 hours. 3. Because air was put into your colon during the procedure, expelling air from your rectum (passing gas or farting) is normal. 4. You may not have a bowel movement for 1-3 days because of the colonoscopy prep. This is normal. 5. Go directly to the emergency room if you notice any of the following: Develop chills (warm to touch), or if you have a thermometer and your temperature is above 101 Difficulty breathing or difficultly swallowing Persistent vomiting Severe abdominal pain, other than gas cramps Severe chest pain Black, tarry stools Any bleeding ? exceeding one tablespoon 6. Call your physician if the site where your intravenous was started becomes red, swollen, painful, and warm to touch. 7. Your physician has reviewed your pre-procedure medications. Please continue to take those medications as previously ordered. You will be given specific information/education regarding any changes to your medications before leaving. Activity:: Activity as Tolerated Diet:: As Tolerated Discharge Orders Discharge Orders: Discharge Order (Routine); Ordered 10/19/24 Ordered By: Grant Ayala DS: Diagnosis Discharge Diagnosis (1) Encounter for screening colonoscopy: Status: Acute Asessment and Plan: Follow-up on polypectomy results
--- NOTE | 2024-10-19 13:52 | W.COLOREPORT ---
Date of service: 10/20/24 Time of Service: 11: Colonoscopy Report Date of procedure: 10/20/24 Pre-op diagnosis general: screening colonoscopy Post-op diagnosis procedure note: other (Colon polyp) Procedure: colonoscopy with polypectomy Surgeon: Grant Ayala Anesthesia Type: General:No Airway Estimated blood loss (mL): 5 Pathology: other (0.5 cm pedunculated polyp at 25 cm) Complications: None Disposition: same day Indications: Janessa is a 49 year old woman who needs a screening colonscopy Prep: Miralax/Dulcolax Procedure Start Time: 11:05 Procedure End Time: : Retraction Time: 11 Findings: 0.5 cm pedunculated polyp at 25 cm Procedure Description: After the induction of anesthesia, and with the patient in left lateral decubitus position, I began by performing an external anorectal exam.? Perineum and skin were normal, as was the anal verge.? There are some external hemorrhoids.? Next, I performed a digital rectal exam.? I did not appreciate any abnormal findings.? Next, I advanced a colonoscope into the rectal vault.? I performed retroflexion.? This appeared normal.? Using insufflation, I then advanced the colonoscope beyond the rectal folds and into the sigmoid colon before advancing towards the cecum.? The scope was noted to be in the cecum by identification of the ileocecal valve and appendiceal orifice.? I then began withdrawing the colonoscope using repeated irrigation as necessary for full evaluation of the colonic mucosa. Around 25 cm from the anal verge was a 0.5 pedunculated polyp. This was removed with cold snare polypectomy. There was minimal bleeding. Once the scope was withdrawn to the level of the rectum, great care was taken to examine portions of the rectal folds.? Finally, the scope was withdrawn and the patient was brought to the same-day surgery recovery unit as the anesthetic wore off. ?The findings and instructions were shared with the patient prior to discharge. Bagwell Bowel Prep Bagwell Bowel Prep Right Colon: 3 Left Colon: 3 Transverse Colon: 3 Total Score: 9
[2024-10-20 09:25] VITALS: BP 122/84; PULSE 85; RESP 16; TEMP 36.4; O2SAT 97
[2024-10-20] MEDS: Lactated Ringers 1,000 ML 80 ML IV (10:15)
--- NOTE | 2024-10-20 10:28 | W.ANESPRE ---
General Info Date of Service Date Performed: 10/20/24 Height: 5 ft 4 in Weight: 85.6 kg Body Mass Index (BMI): 32.3 Surgical Procedure: Operation Date: 10/20/24 10:35 Proposed Procedure Side Surgeon mario Ayala MD Meds Allergies and Home Medications Allergies Allergy/AdvReac Type Severity Reaction Status Date / Time venom-honey bee Allergy Severe Other (See Verified 10/20/24 09:45 Comment) Sulfa (Sulfonamide Allergy HIVES Verified 10/20/24 09:45 Antibiotics) Home Medication ?Medication ?Instructions ?Recorded cholecalciferol (vitamin D3) 50 50 mcg PO DAILY 02/14/21 mcg (2,000 unit) capsule escitalopram oxalate 20 mg tablet 20 mg PO DAILY AM 11/12/21 midodrine 2.5 mg tablet 2 tab PO TID 11/12/21 lithium carbonate 300 mg 300 mg PO HS 03/19/22 tablet,extended release albuterol sulfate 90 mcg/actuation 2 puff inhalation Q6H PRN 05/01/23 aerosol inhaler clonazepam 0.5 mg tablet 0.5 mg PO DAILY PRN 05/01/23 epinephrine 0.3 mg/0.3 mL 0.3 mg IM ONCE 05/01/23 injection, auto-injector linaclotide 72 mcg capsule 72 mcg PO DAILY 05/01/23 (Linzess) potassium chloride 20 mEq oral 20 meq PO DAILY 05/01/23 packet (Klor-Con) tiotropium bromide 1.25 2 puff inhalation DAILY 05/01/23 mcg/actuation mist for inhalation (Spiriva Respimat) docusate sodium 100 mg capsule 100 mg PO TID 08/13/23 acetaminophen 500 mg tablet 500 mg PO Q6H PRN 09/06/23 (Tylenol Extra Strength) dexlansoprazole 30 mg 30 mg PO DAILY #30 caps 09/06/23 capsule,biphase delayed release (Dexilant) sitagliptin phosphate 100 mg 100 mg PO DAILY 12/26/23 tablet (Januvia) sumatriptan succinate 50 mg tablet 50 mg PO ONCE PRN 12/26/23 bupropion HCl 300 mg 24 hr tablet, 300 mg PO QAM 02/20/24 extended release famotidine 20 mg tablet 20 mg PO BID 02/20/24 estradiol 0.01% (0.1 mg/gram) 1 g vaginal DIRECTED #60 grams 06/04/24 vaginal cream ipratropium 0.5 mg-albuterol 3 mg 3 ml inhalation 4XD PRN 10/20/24 (2.5 mg base)/3 mL nebulization soln meclizine 25 mg tablet 25 mg PO PRN 10/20/24 vibegron 75 mg tablet (Gemtesa) 75 mg PO DAILY 10/20/24 Current Visit Medications: Current Medications Generic Name Dose Route Start Last Admin Trade Name Frelibra PRN Reason Stop Dose Admin Ringer's Solution 1,000 mls @ 80 mls/hr 10/20/24 06:00 10/20/24 10:15 IV 10/20/24 23:59 80 mls/hr INFUSION BLANQUITA Administration IV Miscellaneous Supplies 1 each 10/20/24 06:00 Iv Access IV 10/20/24 23:59 DIRECTED BLANQUITA Sodium Chloride 0 ml 10/20/24 06:00 Normal Saline Flush 10 Ml Syr IV 10/20/24 23:59 PRN PRN Sodium Chloride 0 ml 10/20/24 06:00 Normal Saline 10 Ml Vial IJ 10/20/24 23:59 DIRECTED PRN Sterile Water 0 ml 10/20/24 06:00 Water,Injection,Sterile 10 Ml Vial IJ 10/20/24 23:59 DIRECTED PRN PFSH Active Problems Active Problems: Problem Status Onset Code Encounter for screening colonoscopy Acute Z12.11 Chondromalacia, right shoulder Acute M94.211 Chronic erosive gastritis Acute K29.40 Anxiety Chronic F41.9 Psychologic conversion disorder Acute F44.9 Urinary incontinence Acute R32 Seasonal affective disorder Acute F33.8 Tinea pedis Acute B35.3 Onychomycosis Acute B35.1 Nail dystrophy Acute L60.3 TAMARA II (cervical intraepithelial neoplasia II) Resolved 02/07/16 N87.1 Depression Chronic F32.9 Medical History Medical History Asthma PVD (peripheral vascular disease) Type 2 diabetes mellitus with peripheral neuropathy Bipolar 2 disorder Hiatal hernia with GERD Pacemaker Acne (04/21/13) Surgical History Surgical History History of cholecystectomy (~03/2019) History of esophagogastroduodenoscopy (EGD) (~07/2022) History of hysterectomy History of bilateral ligation of fallopian tubes History of discectomy Status post dilation and curettage S/P endometrial ablation irregular bleeding has restarted, neg EM bx 01/2016 Dilation and curettage X 2 with losses ANAL SURGERY surgical drainage of anal fissure Tobacco Smoking/Tobacco Use Status: Current every day Tobacco Type: e-cigarettes Alcohol Alcohol Intake: never Substance Use Substance use: Never Substance use type: does not use Vital Signs and Lab Results Vital Signs Most Recent Vital Signs in EMR: Most Recent Vital Signs Temp Pulse Resp BP Pulse Ox 36.4 C L 85 16 122/84 97 10/20/24 09:25 10/20/24 09:25 10/20/24 09:25 10/20/24 09:25 10/20/24 09:25 Imaging and Studies Imaging and Studies Study information below may be from another EMR and interpreted by another provider. Please see original notes in EMR for more complete details. EKG Summary: 02/22/24 Conclusion Sinus rhythm...normal P axis, V-rate 60- 99 Low voltage, precordial leads...precordial leads <1.0mV Echocardiogram Summary: 10/21/18 ARTHUR PHELPS Unit #: [id number] Loc: ICU Ordering Provider: Lino Gonsales M.D. Status: ADM MARY KATE Primary Care Provider: Sarah Beltrán M.D. Date of Exam: 10/21/18 Sex: F : 1975 Age: 43 Exam(s) a US:US echocardiogram *[facility]* *[facility]* [address] [place] [address] Date of study: 10/21/2018 Transthoracic Echocardiography M-mode, complete 2D, complete spectral Doppler, and color Doppler *STUDY CONCLUSIONS* Summary: 1. Left ventricle: The cavity size was normal. Systolic function was normal. The estimated ejection fraction was 60-65%. Diastolic parameters were normal. There was no evidence of elevated ventricular filling pressure by Doppler parameters. 2. Mitral valve: There was mild to moderate regurgitation. 3. Right ventricle: The cavity size was mildly dilated. Systolic function was normal. 4. Atrial septum: No defect or patent foramen ovale was identified. 5. Pulmonary arteries: Pulmonary systolic pressure was in the range of 25mm Hg to 35mm Hg. 6. Inferior vena cava: The vessel was normal in size. The respirophasic diameter changes were in the normal range (greater than or equal to 50%), consistent with normal central venous pressure. *PATIENT PRESENTATION* Height: 162.6cm (64in ) S/D Pressure: 102 / 57 Weight: 81.2kg (178.6lb ) BSA: 1.94m^2 Test start time: 09:45 AM. Test stop time: 10:25 AM. PERFORMING Unknown CONSULTING Lino Gonsales ORDERING Lino Gonsales REFERRING Lino Gonsales Pulmonary Function Summary: 03/01/21 Pulmonary Function Test Result Requesting Provider Brenda Nazario Indications: Dyspnea Interpretation Spirometry: There is no airflow limitation. There is no significant bronchodilator response. There is a restrictive pattern to spirometry. Lung Volumes: There is moderately reduced lung volumes. Diffusion Capacity: The diffusion is reduced. Airway Pressure: Airways resistance is normal. Impression Moderate restrictive lung disease with a reduced diffusion capacity. Clinical Correlation therefore is recommended. Anesthesia Assessment and Plan Anesthesia History Personal History: No History of Anesthesia Complications Family History: No Family History of Anesthesia Complications Exercise Tolerance Exercise Tolerance: Metabolic Equivalents<4 Pertinent Negatives Pertinent Negatives: No Major Cardiovascular Symptoms or Complaints and No Major Pulmonary Symptoms or Complaints Cardiac & Pulmonary Exam Cardiac Exam: Normal S1/S2 Heart Sounds Pulmonary Exam: Clear Bilateral Breath Sounds Cardiac and Pulmonary Comment:: No recent syncopated episodes Implantable Cardiac Device Does patient have a Pacemaker or an ICD?: Yes 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:: [employer] Reason for Placement:: Syncopal episodes Date of Last Device Interrogation:: August 2024 Airway Exam Known Difficult Airway: No Mallampati Class: 3 Mouth Opening: Normal (> 3cm) Thyromental Distance: Greater than 3 cm Neck Range of Motion: Full ROM Neck Circumference: Normal Teeth Condition: Edentulous ASA Classification ASA Score: ASA 3 Emergency Case?: No NPO Status NPO Status: NPO Clears >2 hours, Solids >8 hours Status Status: History of Hysterectomy Anesthesia Plan Resuscitation Status: Full Code Anesthesia Technique: General Anesthesia Airway Planned: Natural Airway Monitors Used: Standard Monitors Preoperative Comments:: Did not take famotidine and dexilant today, IV famotidine given preop
[2024-10-20 10:45] VITALS: BMI 32.3
--- NOTE | 2024-10-20 11:19 | BOWEL_PTH ---
PATIENT: Janessa Covarrubias LOC: [facility] U#:[id number] AGE/SX: 49/F ROOM: RE10/20/[address]: Grant Ayala MD : 1975 BED: DIS: 10/20/2024 SPEC #: [id number] RECD: 10/20/24 13:04 STATUS: STEVEN RE #: [id number] ARY: 10/20/24 11:[address]: Grant Ayala DEPT: Surgical Specimen RECD BY: Elle Teresa ENTERED: 10/20/24 13:05 SP TYPE: Bowel OTHR DR: BELTRAN JHAVERI NP Tissues: 1 - BIOPSY BOWEL Procedures: GROSS AND MICRO LEVEL 4 Comments: [id number]
[2024-10-20 11:27] VITALS: BP 125/88; PULSE 87; RESP 17; TEMP 36.3; O2SAT 96
[2024-10-20 11:44] VITALS: BP 109/73; PULSE 76; RESP 20; TEMP 36.1; O2SAT 98
--- NOTE | 2024-10-20 11:44 | W.ANESPOSTOP ---
Postoperative Evaluation Date, Time and Location Date Performed: 10/20/24 Time Performed: 11:31 Patient Location: Day Surgery Unit Vital Signs Most Recent Imported Vital Signs: Most Recent Vital Signs Temp Pulse Resp BP Pulse Ox 36.3 C L 87 17 125/88 96 10/20/24 11:27 10/20/24 11:27 10/20/24 11:27 10/20/24 11:27 10/20/24 11:27 Pain Score Most Recent Pain Score: Most Recent Pain Score Pain Level 3 10/20/24 09:25 Assessment Mental Status: Awake (Alert & Oriented to Patient Baseline) Airway and Respiratory Function: Patent airway with normal (patient baseline) respiratory exam Cardiovascular Function: Hemodynamically Stable Hydration Status: Adequately Hydrated Nausea & Vomiting: No Nausea or Vomiting Pain: Pt. Denies Any Pain Peripheral Nerve Block: Patient did not receive a nerve block
== END 2024-10-20 11:58 | disposition home or self-care (01) ==
LOC: SUR 08:55
PROVIDERS: PCP Nurse Practitioner Family; Visit Provider Surgery
PROC: 0DJD8ZZ Inspection of Lower Intestinal Tract, Via Natural or Artificial Opening Endoscopic (ICD-10-PCS; CPT 45378; principal; 2024-10-20 10:30)
DX: Z12.11 Encounter for screening for malignant neoplasm of colon (principal); D12.5 Benign neoplasm of sigmoid colon
CPT/HCPCS: 45385; 88305; J2003; J2405; J2704

== ENCOUNTER 2024-11-02 02:40 | Emergency (ER) | payer MEDICARE, MEDICAID, SELFPAY ==
[2024-11-02 02:45] VITALS: BP 138/87; PULSE 79; RESP 19; TEMP 36.8; O2SAT 98
--- NOTE | 2024-11-02 02:57 | W.ED.GENAD ---
Discharge Plan Disposition Patient Disposition: Home Condition: Good Discharge Details Clinical Impression: Shingles, Bacterial infection of skin Primary Care Provider: BELTRAN JHAVERI ED Provider: Christopher Theodore Home Meds and New Rx's Prescriptions: New mupirocin calcium 2 % cream 1 applic topical BID Qty: 15 0RF capsaicin 0.1 % cream 1 applic topical BID Qty: 42.5 0RF Rx Instructions: do not wash area for at least 30 min after application valacyclovir 1 gram tablet 1,000 mg PO TID Qty: 21 0RF No Action docusate sodium 100 mg capsule 100 mg PO TID albuterol sulfate 90 mcg/actuation HFA aerosol inhaler 2 puff inhalation Q6H PRN clonazepam 0.5 mg tablet 0.5 mg PO DAILY PRN epinephrine 0.3 mg/0.3 mL auto-injector 0.3 mg IM ONCE Rx Instructions: as a single dose; may repeat once potassium chloride [Klor-Con] 20 mEq packet 20 meq PO DAILY Linzess 72 mcg capsule 72 mcg PO DAILY Spiriva Respimat 1.25 mcg/actuation mist 2 puff inhalation DAILY acetaminophen [Tylenol Extra Strength] 500 mg tablet 500 mg PO Q6H PRN dexlansoprazole [Dexilant] 30 mg capsule,biphase delayed releas 30 mg PO DAILY Qty: 30 6RF cetirizine 10 mg tablet 10 mg PO DAILY PRN tramadol 50 mg tablet 50 mg PO BID PRN diazepam [Valium] 2 mg tablet 2 mg PO QHS PRN Rx Instructions: Take 1 tablet by mouth one hour prior to MRI. Do not drive. bisacodyl 10 mg suppository 10 mg AL DAILY PRN sucralfate 1 gram tablet 1 g PO Q4H PRN famotidine 20 mg tablet 20 mg PO BID bupropion HCl 300 mg tablet extended release 24 hr 300 mg PO QAM estradiol 0.01 % (0.1 mg/gram) cream 1 g vaginal DIRECTED Qty: 60 10RF Rx Instructions: Apply a pea sized amount vaginally nightly for 2 weeks, then reduce to 2-3 times per week lithium carbonate 300 mg tablet extended release 300 mg PO HS Patient Comments: TAKE 1 TABLET BY MOUTH IN THE EVENING sumatriptan succinate 50 mg tablet 50 mg PO ONCE PRN Patient Comments: TAKE ONE TABLET BY MOUTH AT ONSET OF HEADACHE, MAY REPEAT IN TWO HOURS IF NECESSARY NOT TO EXCEED 2 TABLETS IN 24 HOURS Januvia 100 mg tablet 100 mg PO DAILY Patient Comments: TAKE ONE TABLET BY MOUTH EVERY DAY IN THE MORNING ipratropium-albuterol 0.5 mg-3 mg(2.5 mg base)/3 mL solution for nebulization 3 ml INHALATION 4XD PRN Patient Comments: INHALE CONTENTS OF 1 VIAL VIA NEBULIZER FOUR TIMES A DAY NEEDED FOR ASTHMA FLARE, COUGH, WHEEZING, OR FOR SHORTNESS OF BREATH meclizine 25 mg tablet 25 mg PO PRN Gemtesa 75 mg tablet 75 mg PO DAILY Patient Comments: TAKE 1 TABLET BY MOUTH EVERY DAY cholecalciferol (vitamin D3) 50 mcg (2,000 unit) capsule 50 mcg PO DAILY Patient Comments: TAKE TWO CAPSULES BY MOUTH EVERY DAY escitalopram oxalate 20 mg tablet 20 mg PO DAILY AM Patient Comments: TAKE 1 TABLET BY MOUTH ONCE DAILY midodrine 2.5 mg tablet 2 tab PO TID Patient Comments: TAKE 2 TABLETS BY MOUTH THREE TIMES DAILY Discharge Instructions Instructions: Shingles Additional Instructions: At this time your lesions appear consistent with shingles. Please take the antiviral medication, and the capsaicin cream to help with the pain and symptoms. I am concerned that some of your lesions where they have been scratched will get infected. Please apply the antibiotic ointment to all of your lesions as prescribed. If you notice that your rash changes, or starts occurring in different places, please return for reassessment as this may reflect that the rash is not from shingles alone. If you notice any worsening of your symptoms, or any new symptoms such as vomiting, diarrhea, fever, chills, shortness of breath, chest pain, numbness, weakness, or fainting , please return immediately to the emergency department for reevaluation. Please follow up with your primary care provider as soon as possible for reassessment and reevaluation. As always, it was a pleasure participating in your medical care today. Referrals: BELTRAN JHAVERI NP [Primary Care Provider, Medicine] [facility] General Date/Time Provider Initiated Documentation: 11/02/24 02:42. HPI Narrative: This is a 49-year-old female with a past medical history of gallstones and subsequent cholecystectomy, tubal ligation, GERD, previous atypical heart palpitations currently with an implanted farm product purchaser (nondefibrillating/nonpacing), asthma, tubal ligation, previous GI bleed, diabetes mellitus type 2, bipolar type II, who presents today for lesions on her right arm. Patient states that over the last 2 to 3 days she has developed mild blister like lesions under her right arm and right shoulder. They are burning and itching in nature. She denies any new medications, new soaps, detergents or other aggravators. She has 2 separate lesions on her right hernandez, but states that these do not feel the same. She scraped the vesicles on her arm and shoulder, and it led to clear fluid discharge. It continues to be notably burning. She denies fever or chills. She has not received a shingles shot. She denies any other complaints at this time. Related Data Home Medications ?Medication ?Instructions ?Recorded ?Confirmed cholecalciferol (vitamin D3) 50 50 mcg PO DAILY 02/14/21 11/02/24 mcg (2,000 unit) capsule escitalopram oxalate 20 mg tablet 20 mg PO DAILY AM 11/12/21 11/02/24 midodrine 2.5 mg tablet 2 tab PO TID 11/12/21 10/20/24 lithium carbonate 300 mg 300 mg PO HS 03/19/22 11/02/24 tablet,extended release albuterol sulfate 90 mcg/actuation 2 puff inhalation Q6H PRN 05/01/23 11/02/24 aerosol inhaler clonazepam 0.5 mg tablet 0.5 mg PO DAILY PRN 05/01/23 11/02/24 epinephrine 0.3 mg/0.3 mL 0.3 mg IM ONCE 05/01/23 11/02/24 injection, auto-injector linaclotide 72 mcg capsule 72 mcg PO DAILY 05/01/23 11/02/24 (Linzess) potassium chloride 20 mEq oral 20 meq PO DAILY 05/01/23 11/02/24 packet (Klor-Con) tiotropium bromide 1.25 2 puff inhalation DAILY 05/01/23 11/02/24 mcg/actuation mist for inhalation (Spiriva Respimat) docusate sodium 100 mg capsule 100 mg PO TID 08/13/23 11/02/24 acetaminophen 500 mg tablet 500 mg PO Q6H PRN 09/06/23 11/02/24 (Tylenol Extra Strength) dexlansoprazole 30 mg 30 mg PO DAILY #30 caps 09/06/23 11/02/24 capsule,biphase delayed release (Dexilant) sitagliptin phosphate 100 mg 100 mg PO DAILY 12/26/23 11/02/24 tablet (Januvia) sumatriptan succinate 50 mg tablet 50 mg PO ONCE PRN 12/26/23 11/02/24 bupropion HCl 300 mg 24 hr tablet, 300 mg PO QAM 02/20/24 11/02/24 extended release famotidine 20 mg tablet 20 mg PO BID 02/20/24 11/02/24 estradiol 0.01% (0.1 mg/gram) 1 g vaginal DIRECTED #60 grams 06/04/24 11/02/24 vaginal cream ipratropium 0.5 mg-albuterol 3 mg 3 ml inhalation 4XD PRN 10/20/24 11/02/24 (2.5 mg base)/3 mL nebulization soln meclizine 25 mg tablet 25 mg PO PRN 10/20/24 vibegron 75 mg tablet (Gemtesa) 75 mg PO DAILY 10/20/24 11/02/24 bisacodyl 10 mg rectal suppository 10 mg AL DAILY PRN 10/27/24 11/02/24 cetirizine 10 mg tablet 10 mg PO DAILY PRN 10/27/24 11/02/24 diazepam 2 mg tablet (Valium) 2 mg PO QHS PRN 10/27/24 11/02/24 sucralfate 1 gram tablet 1 g PO Q4H PRN 10/27/24 11/02/24 tramadol 50 mg tablet 50 mg PO BID PRN 10/27/24 11/02/24 capsaicin 0.1 % topical cream 1 applic topical BID #42.5 grams 11/02/24 mupirocin calcium 2 % topical cream 1 applic topical BID #15 grams 11/02/24 valacyclovir 1 gram tablet 1,000 mg PO TID #21 tabs 11/02/24 Previous Rx's ?Medication ?Instructions ?Recorded dexlansoprazole 30 mg 30 mg PO DAILY #30 caps 09/06/23 capsule,biphase delayed release (Dexilant) estradiol 0.01% (0.1 mg/gram) 1 g vaginal DIRECTED #60 grams 06/04/24 vaginal cream capsaicin 0.1 % topical cream 1 applic topical BID #42.5 grams 11/02/24 mupirocin calcium 2 % topical cream 1 applic topical BID #15 grams 11/02/24 valacyclovir 1 gram tablet 1,000 mg PO TID #21 tabs 11/02/24 Allergies Allergy/AdvReac Type Severity Reaction Status Date / Time venom-honey bee Allergy Severe Other (See Verified 11/02/24 02:44 Comment) Sulfa (Sulfonamide Allergy HIVES Verified 11/02/24 02:44 Antibiotics) General Stated Complaint: RashLesion MIKE: 3 Exam Narrative Exam Narrative: 1.Const: Well-nourished, Well-developed, appearing stated age 2.Eyes: PERRL, no conjunctival injection, and symmetrical lids. 3.ENT: Atraumatic external nose and ears. Moist MM. Neck: Symmetric, trachea midline, No thyromegaly. 4.CVS: +S1/S2, Peripheral pulses 2+ and equal in all extremities. Brisk capillary refill in all extremities. 5.RESP: Unlabored respiratory effort. Clear to auscultation bilaterally. No wheezes rales or rhonchi 6.GI: Soft, Nontender/Nondistended, No hepatosplenomegaly. No guarding or rebound. 7.MSK: Normocephalic/Atraumatic, Extremities w/o deformity or ttp No cyanosis or clubbing, Normal movement of all extremities 8.Skin: Warm, dry, multiple excoriated lesions with a central ulcer/greater where they have been excoriated on the right arm proximal to the elbow going up the arm to the shoulder. No vesicles at this time. They have all been excoriated. No bleeding. Minimal surrounding redness to each lesion. Diameter of each lesion ranges between 2 mm to 7 mm. No purulent drainage or discharge. No evidence of surrounding severe cellulitis. Negative Nikolsky sign. No large vesicles or bulla. No palpable purpura. No oral lesions. No mucosal lesions. No evidence of severe cellulitis. 9.Neuro: quality coordinator II-XII grossly intact. Sensation grossly intact, no focal neurologic deficits. 10.Psych: (AAO) x3. Appropriate mood and affect Course Vital Signs Vital signs: Vital Signs Temperature 36.8 C 11/02/24 02:45 Pulse 79 11/02/24 02:45 Respiratory Rate 19 11/02/24 02:45 Blood Pressure 138/87 11/02/24 02:45 Pulse Oximetry 98 11/02/24 02:45 Temperature 36.8 C 11/02/24 02:45 Temperature Source Temporal Artery Scan 11/02/24 02:45 Pulse 79 11/02/24 02:45 Respiratory Rate 19 11/02/24 02:45 Blood Pressure 138/87 11/02/24 02:45 Blood Pressure Position Sitting 11/02/24 02:45 Pulse Oximetry 98 11/02/24 02:45 Oxygen Delivery Method Room Air 11/02/24 02:45 Oxygen Flow Rate 0 11/02/24 02:45 Pain Level 9 11/02/24 02:45 Medical Decision Making This is a 49-year-old female with a past medical history of gallstones and subsequent cholecystectomy, tubal ligation, GERD, previous atypical heart palpitations currently with an implanted farm product purchaser (nondefibrillating/nonpacing), asthma, tubal ligation, previous GI bleed, diabetes mellitus type 2, bipolar type II, who presents today for lesions on her right arm. Patient states that over the last 2 to 3 days she has developed mild blister like lesions under her right arm and right shoulder. They are burning and itching in nature. She denies any new medications, new soaps, detergents or other aggravators. She has 2 separate lesions on her right hernandez, but states that these do not feel the same. She scraped the vesicles on her arm and shoulder, and it led to clear fluid discharge. It continues to be notably burning. She denies fever or chills. She has not received a shingles shot. She denies any other complaints at this time. Exam demonstrates multiple excoriated lesions with a central ulcer/greater where they have been excoriated on the right arm proximal to the elbow going up the arm to the shoulder. No vesicles at this time. They have all been excoriated. No bleeding. Minimal surrounding redness to each lesion. Diameter of each lesion ranges between 2 mm to 7 mm. No purulent drainage or discharge. No evidence of surrounding severe cellulitis. Negative Nikolsky sign. No large vesicles or bulla. No palpable purpura. No oral lesions. No mucosal lesions. No evidence of severe cellulitis. Symptoms appear consistent with shingles. No current clinical evidence of staph scalded skin syndrome, erythema multiforme, erythema migrans, toxic epidermal necrolysis, Moss-Noah syndrome, Kawasaki-like rash, meningococcemia, pemphigus vulgaris, or necrotizing fasciitis. Will prescribe valacyclovir, capsaicin, and mupirocin. Mupirocin will be to be used on the lesions to prevent bacterial superinfection from the patient's persistent scratching. Discussed red flags for which to return. Additionally I was very clear with the patient that if the rash does spread to other locations this may mean that it is not shingles, she should return for reassessment if she notices any worsening. I have extensively reviewed the treatment plan and discharge instructions with the patient. I have addressed all patient concerns at this time. The patient was made aware of what symptoms to monitor for that would warrant a return to the emergency department. Discussed the plan with the patient, they demonstrate verbal understanding and agreement with our assessment and plan at this time. The documentation in this chart was dictated using [employer] dictation software. Please excuse any dictation errors. PFSH All Active Problems (Updated 11/02/24 @ 03:00 by Christopher Theodore DO) Bacterial infection of skin (Acute) Shingles (Acute) Chondromalacia, right shoulder (Acute) Chronic erosive gastritis (Acute) Anxiety (Chronic) Psychologic conversion disorder (Acute) Urinary incontinence (Acute) Seasonal affective disorder (Acute) Tinea pedis (Acute) Onychomycosis (Acute) Nail dystrophy (Acute) Depression (Chronic) Takes Fluoxetine 20mg QD with good impact on her depression, denies any SI. Encouraged to continue. to try to tame a saray. Medical History (Updated 11/02/24 @ 03:00 by Christopher Theodore DO) Asthma PVD (peripheral vascular disease) Type 2 diabetes mellitus with peripheral neuropathy Bipolar 2 disorder Hiatal hernia with GERD Pacemaker Acne (04/21/13) Surgical History (Updated 10/22/24 @ 07:30 by Mireya Ugarte) Hx of colonoscopy with polypectomy (~09/2024) History of cholecystectomy (~03/2019) History of esophagogastroduodenoscopy (EGD) (~07/2022) History of hysterectomy History of bilateral ligation of fallopian tubes History of discectomy Status post dilation and curettage S/P endometrial ablation irregular bleeding has restarted, neg EM bx 01/2016 Dilation and curettage X 2 with losses ANAL SURGERY surgical drainage of anal fissure Family History Mother Hyperlipidemia Thyroid disorder Father Essential hypertension Diabetes Personal history of malignant neoplasm prostate Heart disease Hyperlipidemia Myocardial infarction Social History Smoking/Tobacco Use Status: Current every day Tobacco Type: e-cigarettes Tobacco: How many years used: 20 Smoking risk assessment performed?: Yes Alcohol Intake: never Drug use: Never Substance use type: does not use Household members: family and other Details: Lives with demented mother and her brother Housing: house 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
== END 2024-11-02 03:22 | disposition home or self-care (01) ==
PROVIDERS: Emergency Provider Student in an Organized Health Care Education/Training Program; PCP Nurse Practitioner Family
DX: B02.8 Zoster with other complications (principal); L08.9 Local infection of the skin and subcutaneous tissue, unspecified
CPT/HCPCS: 99283; 99284

== ENCOUNTER → 2024-11-03 13:43 | Outpatient (BNVA) | payer MEDICARE, MEDICAID, SELFPAY | PROVIDERS: PCP Nurse Practitioner Family; Referring Provider Nurse Practitioner Family; Visit Provider Podiatrist | DX: B35.1 Tinea unguium (principal); B35.3 Tinea pedis; E11.42 Type 2 diabetes mellitus with diabetic polyneuropathy; I73.89 Other specified peripheral vascular diseases; L60.3 Nail dystrophy; R09.89 Other specified symptoms and signs involving the circulatory and respiratory systems; R60.0 Localized edema; L65.9 Nonscarring hair loss, unspecified; R23.8 Other skin changes; L60.2 Onychogryphosis; L60.8 Other nail disorders | CPT/HCPCS: 11720 ==

== ENCOUNTER 2025-02-19 12:31 | Outpatient (REF) | payer MEDICARE, MEDICAID, SELFPAY ==
[2025-02-19 19:20] LABS: HCT 36.5 % (36.0-46.0); HGB 11.3 g/dL (11.2-15.7); MCH 23.9 pg (27.0-33.0); MCHC 31.0 % (32.0-36.0); MCV 77 fL (80-95); MPV 11.5 fL (8.0-11.0); Platelet Count 307 10^3/uL (130-400); RBC 4.72 10^6/uL (3.93-5.22); RDW 15.5 % (11.7-14.6); RDW-SD 43.3 fL; WBC 7.68 10^3/uL (4.4-10.8)
[2025-02-19 19:30] LABS: ALT 27 U/L (10-49); AST 30 U/L (<34); Albumin 4.4 g/dL (3.4-5.0); Alkaline Phosphatase 125 U/L (46-116); Anion Gap 7.6 mmol/L (3-11); BUN 8 mg/dL (9-23); Bilirubin, Total 0.40 mg/dL (0.2-1.2); CO2 27.4 mmol/L (20.0-31.0); Calcium 9.4 mg/dL (8.3-10.6); Chloride 106 mmol/L (98-107); Cholesterol 160 mg/dL (<200); Glucose 181 mg/dL (74-106); HDL Cholesterol 48 mg/dL (>40); Potassium 3.9 mmol/L (3.5-5.1); Sodium 141 mmol/L (136-145); Total Protein 7.0 g/dL (5.7-8.2)
[2025-02-20 11:43] LABS: Iron 26 ug/dL (50-170); Total Iron Binding Capacity 420 ug/dL (250-425)
[2025-02-20 11:48] LABS: Ferritin 7 ng/mL (7-271)
[2025-02-20 11:50] LABS: Vitamin B12 331 pg/mL (211-911)
[2025-02-20 19:22] LABS: HIV-1/2 Ag & Ab Screen Negative (Negative)
[2025-02-20 19:25] LABS: Hepatitis C Ab w Rflx HCV PCR Negative (Negative)
== END 2025-02-19 12:32 | disposition home or self-care (01) ==
LOC: NCHCN 12:31
PROVIDERS: PCP Nurse Practitioner Family
DX: Z12.31 Encounter for screening mammogram for malignant neoplasm of breast (principal); Z00.00 Encounter for general adult medical examination without abnormal findings; E11.9 Type 2 diabetes mellitus without complications; D64.9 Anemia, unspecified
CPT/HCPCS: 80053; 80061; 85027; 86803; 87389; 82043; 82570; 82607; 82728; 83540; 83550